=== PATIENT | female | born 1985 | race Hispanic/Latino ===

== ENCOUNTER 2021-10-23 12:11 | Emergency (ER) | payer OTHER ==
--- NOTE | 2021-10-23 14:35 | RAD REPORT ---
EXAM DESCRIPTION: RAD - Chest Pa And Lat (2 Views) - 10/23/2021 2:30 pm CLINICAL HISTORY: CHEST PAIN COMPARISON: None TECHNIQUE: Frontal and lateral views of the chest were obtained. FINDINGS: The lungs are clear. Heart size is normal and central vasculature is within normal limit s. No pleural effusion or pneumothorax seen. No aortic abnormality. No gross rib abnormality seen. Rib detail is limited and can be further addressed with dedicated rib series as warranted. IMPRESSION: No acute cardiopulmonary process.
--- NOTE | 2021-10-23 14:43 | RAD REPORT ---
EXAM DESCRIPTION: Ribs Right - 10/23/2021 2:36 pm CLINICAL HISTORY: CHEST PAIN COMPARISON: Chest Pa And Lat (2 Views) dated 10/23/2021 FINDINGS: No displaced rib fracture is evident. No non-displaced rib fracture suspected. No aggressive rib lesion. No underlying pneumothorax, effusion, infiltrate or pulmonary contusion. IMPRESSION: Negative right rib series.
[2021-10-23] MEDS ORDERED: KETOROLAC 30 MG/ML INJ ONE (15:34)
[2021-10-23 15:42] LABS: Absolute Lymphocytes (CBC) 2.7 K/uL (0.7-4.9); Hematocrit 42.7 % (36.0-45.0); Lymphocytes % 32.7 % (15.3-44.8); MPV 8.1 fL (7.6-11.3); RBC Red Blood Cell Count 4.74 M/uL (3.86-4.86)
[2021-10-23 16:01] LABS: BUN Blood Urea Nitrogen 7 mg/dL (7-18); Bicarbonate 26 mmol/L (21-32); Glucose Level 135 mg/dL (74-106); Potassium 3.3 mmol/L (3.5-5.1); Sodium Level 141 mmol/L (136-145); Troponin High Sensitivity 3.3 pg/mL (<58.9)
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
--- NOTE | 2021-10-23 16:13 | ER ---
Nurse's Notes [facility] Name: Quin Wallace Age: 36 yrs Sex: Female : 1985 Arrival Date: 10/23/2021 Time: 12:15 Bed 8 Private MD: Diagnosis: Chest pain, unspecified Presentation: 10/23 12:32 Chief complaint: Patient states: Constant R sided CP since Friday evening. Pain with ll1 deep breathing. No cough or fever. No trauma or falls. Coronavirus screen: Vaccine status: Patient reports receiving the 2nd dose of the covid vaccine. Client denies travel out of the [place] in the last 14 days. At this time, the client does not indicate any symptoms associated with coronavirus-19. Ebola Screen: Patient denies travel to an Ebola-affected area in the 21 days before illness onset. Initial Sepsis Screen: Does the patient meet any 2 criteria? No. Patient's initial sepsis screen is negative. Does the patient have a suspected source of infection? No. Patient's initial sepsis screen is negative. Risk Assessment: Do you want to hurt yourself or someone else? Patient reports no desire to harm self or others. Onset of symptoms was October 20, 2021. 12:32 Method Of Arrival: Ambulatory ll1 12:32 Acuity: ZAIDA 3 ll1 Triage Assessment: 12:34 General: Appears uncomfortable, Behavior is cooperative, appropriate for age. Pain: ll1 Complains of pain in chest. Cardiovascular: Reports chest pain, lightheadedness. Respiratory: Reports pain with respiration. Historical: - Allergies: 12:34 [place]; ll1 12:34 [place]; ll1 - PMHx: 12:34 Diabetes mellitus; heart racing; ll1 - PSHx: 12:34 Cholecystectomy; L ovary removed; ll1 12:35 hernia SX; ll1 - Immunization history:: Client reports receiving the 2nd dose of the Covid vaccine. - Social history:: Smoking status: Patient denies any tobacco usage or history of. Screenin:43 Abuse screen: Denies threats or abuse. Denies injuries from another. Nutritional ph screening: No deficits noted. Tuberculosis screening: No symptoms or risk factors identified. Fall Risk None identified. Assessment: 14:30 Reassessment: Called from lobby at 1430 - Pt not in lobby. ld1 15:41 General: Appears in no apparent distress. comfortable, well groomed, Behavior is calm, ph cooperative, appropriate for age, Denies fever, feeling ill. Pain: Complains of pain in anterior aspect of right upper chest and left lateral anterior chest Pain radiates to mid-sternal area Pain began 1 day ago. Neuro: Level of Consciousness is awake, alert, obeys commands, Oriented to person, place, time, situation. Cardiovascular: Reports chest pain, Denies fatigue, lightheadedness, nausea, palpitations, shortness of breath, Chest pain is located in right anterior chest wall. Respiratory: Reports pain with respiration Airway is patent Respiratory effort is even, unlabored, Respiratory pattern is regular, symmetrical. GI: No signs and/or symptoms were reported involving the gastrointestinal system. Derm: Skin is intact, is healthy with good turgor, Skin is pink, warm \T\ dry. Musculoskeletal: Circulation, motion, and sensation intact. Range of motion: intact in all extremities. 16:53 Reassessment: Patient appears in no apparent distress at this time. Patient and/or ph family updated on plan of care and expected duration. Pain level reassessed. Patient is alert, oriented x 3, equal unlabored respirations, skin warm/dry/pink. Pt d/c home. Vital Signs: 12:32 BP 120 / 85; Pulse 77; Resp 16; Temp 98.6; Pulse Ox 100% ; Weight 95.25 kg; Height 5 ll1 ft. 2 in. (157.48 cm); Pain 10/10; 15:27 BP 127 / 60; Pulse 77; Resp 16; Pulse Ox 100% on R/A; vg1 16:53 BP 118 / 68; Pulse 72; Resp 18; Temp 97.9; Pulse Ox 100% on R/A; ph 12:32 Body Mass Index 38.41 (95.25 kg, 157.48 cm) ll1 ED Course: 12:15 Patient arrived in ED. ds1 12:22 Isaac Mcfarland NP is PHCP. pm1 12:22 Feroz Blackwood MD is Attending Physician. pm1 12:26 Arm band placed on. ll1 12:34 Triage completed. ll1 14:31 Chest Pa And Lat (2 Views) In Process Unspecified. EDMS 14:32 Ribs Right XRAY In Process Unspecified. EDMS 15:18 Jelly Germain, RN is Primary Nurse. ph 15:29 Initial lab(s) drawn, by me, sent to lab. Inserted saline lock: 20 gauge in right kj1 antecubital area, using aseptic technique. Blood collected. 15:43 Patient has correct armband on for positive identification. Bed in low position. Call ph light in reach. Side rails up X2. Client placed on continuous cardiac and pulse oximetry monitoring. NIBP monitoring applied. Door closed. Noise minimized. Warm blanket given. 15:44 Patient maintains SpO2 saturation greater than 95% on room air. ph 16:52 No provider procedures requiring assistance completed. IV discontinued, intact, ph bleeding controlled, No redness/swelling at site. Pressure dressing applied. Administered Medications: 15:30 Drug: Ketorolac 30 mg Route: IVP; Site: right antecubital; ph 16:52 Follow up: Response: No adverse reaction ph 16:52 Drug: Valium (diazepam) 2 mg Route: PO; ph 16:52 Follow up: Response: No adverse reaction ph Outcome: 16:12 Discharge ordered by MD. pm1 16:52 Discharged to home ambulatory, with significant other. ph 16:52 Condition: good 16:52 Discharge instructions given to patient, Instructed on discharge instructions, follow up and referral plans. medication usage, Demonstrated understanding of instructions, follow-up care, medications, Prescriptions given X 2. 16:54 Patient left the ED. ph Signatures: Dispatcher [employer] EDME Mayra Hand ds1 Jelly Germain, RN RN ph Isaca Mcfarland, VIRIDIANA RECREATIONAL RESORT MANAGER pm1 Edwina Gale kj1 Maylin Montaño RN RN vg1 Armando Rodriguez RN RN ll1 Zarina Lopez RN RN ld1
[2021-10-23] MEDS ORDERED: DIAZEPAM 2 MG TABLET ONE (16:51)
[2021-10-23 19:19] VITALS: O2SAT 100
[2021-10-23 19:25] VITALS: BP 118/68; TEMP 97.9
--- NOTE | 2021-10-24 12:56 | EKG ---
Test Date: 2021-10-23 Test Time: 12:31:16 Change Management Specialist: TIFFANY MEASUREMENT RESULTS: Intervals: Rate: 79 HI: 102 QRSD: 84 QT: 366 QTc: 419 [employer]: P: 35 HI: 102 QRS: 77 T: 27 INTERPRETIVE STATEMENTS: Sinus rhythm with short HI Otherwise normal ECG Compared to ECG 10/23/2021 12:28:39 Short HI interval now present Electronically Signed On 10-24-21 12:52:14 CDT by Ajith Raymundo
--- NOTE | 2021-10-24 12:56 | EKG ---
Test Date: 2021-10-23 Test Time: 12:28:39 Degreaser Operator: TIFFANY MEASUREMENT RESULTS: Intervals: Rate: 0 NV: QRSD: 0 QT: 0 QTc: 0 [place]: P: NV: QRS: 0 T: 0 INTERPRETIVE STATEMENTS: No QRS complexes found, no ECG analysis possible No previous ECG available for comparison Electronically Signed On 10-24-21 12:52:15 CDT by Ajith Raymundo
== END 2021-10-23 16:54 | disposition home or self-care (01) ==
LOC: ER 12:11
DX: R07.9 Chest pain, unspecified (principal); E11.9 Type 2 diabetes mellitus without complications; Z88.5 Allergy status to narcotic agent; Z88.8 Allergy status to other drugs, medicaments and biological substances
CPT/HCPCS: 36415; 71046; 80048; 84484; 85025; 93005; 96374; 99284

== ENCOUNTER 2022-12-18 14:42 | Emergency (ER) | payer OTHER ==
--- NOTE | 2022-12-18 15:16 | ER ---
Nurse's Notes [facility] Name: Quin Hernández Age: 37 yrs Sex: Female : 1985 Arrival Date: 12/18/2022 Time: 14:42 Bed 16 Private MD: Diagnosis: Insect bite (nonvenomous), unspecified lower leg;Cellulitis of left lower limb Presentation: 12/18 15:00 Chief complaint: Patient states: got bit by fire ants yesterday on left thigh, took iw some Benadryl , not better , is worried she is allergic to it , she also has a headache. Coronavirus screen: At this time, the client does not indicate any symptoms associated with coronavirus-19. Ebola Screen: Patient negative for fever greater than or equal to 101.5 degrees Fahrenheit, and additional compatible Ebola Virus Disease symptoms Patient denies exposure to infectious person. Patient denies travel to an Ebola-affected area in the 21 days before illness onset. No symptoms or risks identified at this time. Initial Sepsis Screen: Does the patient meet any 2 criteria? No. Patient's initial sepsis screen is negative. Does the patient have a suspected source of infection? No. Patient's initial sepsis screen is negative. Risk Assessment: Do you want to hurt yourself or someone else? Patient reports no desire to harm self or others. Onset of symptoms was December 17, 2022. 15:00 Method Of Arrival: Ambulatory iw 15:00 Acuity: ZAIDA 4 iw Triage Assessment: 15:38 Headache History: Denies prior headaches. General: Appears in no apparent distress. kc6 comfortable, Behavior is calm, cooperative, appropriate for age. Pain: Denies pain. EENT: No signs and/or symptoms were reported regarding the EENT system. Neuro: Level of Consciousness is awake, alert, obeys commands, Oriented to person, place, time, situation. Cardiovascular: Capillary refill < 3 seconds Patient's skin is warm and dry. Respiratory: Airway is patent Respiratory effort is even, unlabored. Historical: - Allergies: 15:03 No Known Allergies; iw - PMHx: 15:03 diabetes mellitus; HEART RACING; iw - PSHx: 15:03 Cholecystectomy; Hernia sx; L ovary removed; iw - Immunization history:: Adult Immunizations Client reports receiving the 2nd dose of the Covid vaccine. - Social history:: Smoking status: Patient denies any tobacco usage or history of. - Family history:: not pertinent. Screenin:02 [facility] ED Fall Risk Assessment (Adult) History of falling in the last 3 months, kc6 including since admission No falls in past 3 months (0 pts) Confusion or Disorientation No (0 pts) Intoxicated or Sedated No (0 pts) Impaired Gait No (0 pts) Mobility Assist Device Used No (0 pt) Altered Elimination No (0 pt) Score/Fall Risk Level 0 - 2 = Low Risk Oriented to surroundings, Maintained a safe environment, Educated pt \T\ family on fall prevention, incl call for assistance when getting out of bed, Assessed \T\ reinforced patient's understanding of fall precautions, Hourly rounding (assess needs \T\ fall precautionary measures) done. Abuse screen: Denies threats or abuse. Denies injuries from another. Nutritional screening: No deficits noted. Tuberculosis screening: No symptoms or risk factors identified. Assessment: 15:37 Reassessment: No changes from previously documented assessment. Patient and/or family kc6 updated on plan of care and expected duration. Pain level reassessed. Patient is alert, oriented x 3, equal unlabored respirations, skin warm/dry/pink. Patient is alert/active/playful, equal unlabored respirations, skin warm/dry/pink. See triage assessment Patient denies pain at this time. Vital Signs: 15:00 BP 121 / 64; Pulse 98; Resp 16; Temp 98.4; Pulse Ox 98% on R/A; Weight 92.99 kg; Height iw 5 ft. 2 in. ; Pain 10/10; 15:37 BP 126 / 70; Pulse 81; Resp 18; Pulse Ox 100% on R/A; kc6 15:00 Body Mass Index 37.49 (92.99 kg, 157.48 cm) iw 15:00 Pain Scale: Adult iw ED Course: 14:47 Patient arrived in ED. am2 14:53 Clay Young MD is Attending Physician. rt 15:01 Marilyn Mendiola, KARENA is Primary Nurse. kc6 15:02 Triage completed. iw 15:02 Arm band placed on. iw 15:03 Patient has correct armband on for positive identification. Bed in low position. Call kc6 light in reach. Side rails up X2. 15:37 No provider procedures requiring assistance completed. IV discontinued, intact, kc6 bleeding controlled, No redness/swelling at site. Administered Medications: 15:17 Drug: TORadol - Ketorolac IM 15 mg Route: IM; Site: left deltoid; kc6 Medication: 15:37 VIS not applicable for this client. kc6 Outcome: 15:15 Discharge ordered by MD. rt 15:37 Discharged to home ambulatory. kc6 15:37 Condition: stable 15:37 Discharge instructions given to patient, Instructed on discharge instructions, follow up and referral plans. medication usage, Demonstrated understanding of instructions, follow-up care, medications, Prescriptions given X 1. 15:38 Patient left the ED. kc6 Signatures: Annie Brice RN Jenny Juarez Kaitlyn, RN RN kc6 Clay Young MD MD rt Corrections: (The following items were deleted from the chart) 15:04 15:03 Allergies: [place]; [facility] 15:04 15:03 Allergies: [place]; [facility]
--- NOTE | 2022-12-18 15:16 | EDPHYS ---
Physician Documentation [facility] Name: Quin Hernández Age: 37 yrs Sex: Female : 1985 Arrival Date: 12/18/2022 Time: 14:42 Bed 16 Private MD: ED Physician Clay Young HPI: 12/18 15:17 This 37 yrs old Female presents to ER via Ambulatory with complaints of Leg rt Swelling, Headache, Allergic Reaction. 15:17 Yesterday, the patient was sitting down in grass when she noticed ants biting her left rt thigh. She states she was covered in ants, was bit multiple times. Patient ports having some hives and itching localized to that area at that time. She denies any tongue swelling, difficulty breathing. She reported mild headache that started at the time, is been present since then. Patient has been taking Benadryl off-and-on with modest relief. States that the redness has increased today proper come to the ED for further evaluation. Denies other acute complaints at this time, symptoms are mild in severity, no other aggravating alleviating factors.. Historical: - Allergies: 15:03 No Known Allergies; iw - PMHx: 15:03 diabetes mellitus; HEART RACING; iw - PSHx: 15:03 Cholecystectomy; Hernia sx; L ovary removed; iw - Immunization history:: Adult Immunizations Client reports receiving the 2nd dose of the Covid vaccine. - Social history:: Smoking status: Patient denies any tobacco usage or history of. - Family history:: not pertinent. ROS: 15:17 Constitutional: Negative for fever, chills, and weight loss, ENT: Negative for injury, rt pain, and discharge, Cardiovascular: Negative for chest pain, palpitations, and edema, Respiratory: Negative for shortness of breath, cough, wheezing, and pleuritic chest pain, Abdomen/GI: Negative for abdominal pain, nausea, vomiting, diarrhea, and constipation, Neuro: Negative for headache, weakness, numbness, tingling, and seizure, Psych: Negative for depression, anxiety, suicide ideation, homicidal ideation, and hallucinations. 15:17 Skin: Positive for Redness, itching. Exam: 15:17 Constitutional: This is a well developed, well nourished patient who is awake, alert, rt and in no acute distress. Head/Face: Normocephalic, atraumatic. ENT: Nares patent. No nasal discharge, no septal abnormalities noted. Tympanic membranes are normal and external auditory canals are clear. Oropharynx with no redness, swelling, or masses, exudates, or evidence of obstruction, uvula midline. Mucous membranes moist. MS/ Extremity: Pulses equal, no cyanosis. Neurovascular intact. Full, normal range of motion. Neuro: Awake and alert, GCS 15, oriented to person, place, time, and situation. Cranial nerves II-XII grossly intact. Motor strength 5/5 in all extremities. Sensory grossly intact. Cerebellar exam normal. Normal gait. Psych: Awake, alert, with orientation to person, place and time. Behavior, mood, and affect are within normal limits. 15:17 Skin: Large bowel 6-8 areas and bites on the left lateral thigh with surrounding areas of cellulitis measuring about 3 to 4 cm out from the middle of the bites. There is no confluent infection, no abscess noted. No crepitus felt.. Vital Signs: 15:00 BP 121 / 64; Pulse 98; Resp 16; Temp 98.4; Pulse Ox 98% on R/A; Weight 92.99 kg; Height iw 5 ft. 2 in. ; Pain 10/10; 15:37 BP 126 / 70; Pulse 81; Resp 18; Pulse Ox 100% on R/A; kc6 15:00 Body Mass Index 37.49 (92.99 kg, 157.48 cm) iw 15:00 Pain Scale: Adult iw MDM: 15:02 Patient medically screened. rt 15:17 Differential diagnosis: Cellulitis, abscess, anaphylaxis, localized reaction. Data rt reviewed: vital signs, nurses notes. Test considered but Not performed: Labs: Stable vital signs, benign appearing cellulitis on physical examination, does not require laboratory evaluation at this time.. Care significantly affected by the following chronic conditions: Diabetes. Counseling: I had a detailed discussion with the patient and/or guardian regarding: the historical points, exam findings, and any diagnostic results supporting the discharge/admit diagnosis, the need for outpatient follow up, to return to the emergency department if symptoms worsen or persist or if there are any questions or concerns that arise at home. Administered Medications: 15:17 Drug: TORadol - Ketorolac IM 15 mg Route: IM; Site: left deltoid; kc6 Disposition Summary: 12/18/22 15:15 Discharge Ordered Location: Home rt Problem: new rt Symptoms: are unchanged rt Condition: Stable rt Diagnosis - Insect bite (nonvenomous), unspecified lower leg rt - Cellulitis of left lower limb rt Followup: rt - With: Private Physician - When: 2 - 3 days - Reason: Discharge Instructions: - Discharge Summary Sheet rt - Insect Bite, Adult rt - Cellulitis, Adult rt Forms: - Medication Reconciliation Form rt - Thank You Letter rt - Antibiotic Education rt - Prescription Opioid Use rt - [email or web address] rt Prescriptions: - Cephalexin 500 mg Oral Capsule - take 1 capsule by ORAL route every 6 hours for 10 days; 40 capsule; Refills: 0, rt Product Selection Permitted - Hydroxyzine HCl 25 mg Oral Tablet - take 1 tablet by ORAL route every 6 hours As needed; 12 tablet; Refills: 0, rt Product Selection Permitted Signatures: Annie Brice RN RN iw Marilyn Mendiola RN RN [id number] Clay Young MD MD rt Corrections: (The following items were deleted from the chart) 15:04 15:03 Allergies: Amagon; iw iw 15:04 15:03 Allergies: Umbarger; iw iw
--- OUTSIDE RECORDS SUMMARY | 2022-12-18 15:21 | XMS REPORT | Continuity of Care Document ---
:1985 Author Organization [facility] t Address [address] [place]. [address] [place] [address] Care Team Providers Name Role Phone NGUYỄN NINO Primary Care Physician Unavailable DR NGUYỄN NINO Attending Clinician Unavailable [phone] Attending Clinician Unavailable EDGARDO TSANG Attending Clinician Unavailable BERNA REINOSO Attending Clinician UnavailDR MARTY Rosales Attending Clinician Unavailable ALYSON MOORE Attending Clinician Unavailable ANTWON JONES Attending Clinician Unavailable ANTWON JONES Attending Clinician Unavailable Antwon Jones MD Attending Clinician Doctor Unassigned, Bud Attending Clinician Unavailable DR GIRMA ZARATE Attending Clinician Unavailable JENNY DODSON Attending Clinician Unavailable DR AMBERLY SR Attending Clinician Unavailable Jamal THURSTON, Lina Attending Clinician Unavailable West TOUSSAINT, Jenny Attending Clinician Miriam PATHOLOGY TECHNOLOGIST, Cami Attending Clinician DR МАРИЯ HERRING Attending Clinician Unavailable MILLY FOSS III Attending Clinician Unavailable Arturo THURSTON, Gisele Attending Clinician Unavailable Natalie PATHOLOGY TECHNOLOGIST, Galen B Attending Clinician Belen PATHOLOGY TECHNOLOGIST, Alex Attending Clinician Provider, [facility] Care Attending Clinician Unavailable ALEX GLOVER Attending Clinician Unavailable EDGARDO TSANG M.D. Attending Clinician Unavailable Meg Nunes DO Attending Clinician MEG NUNES Attending Clinician Unavailable DR STEW CASTANEDA Attending Clinician Unavailable Edgardo Tsang Attending Clinician Maite Apodaca Attending Clinician Norbert Pederson Attending Clinician Alyson Montes Attending Clinician Cj Evans Attending Clinician Alyson Ho Attending Clinician Estuardo Ovalle Attending Clinician Casie Vann Attending Clinician Georges Posada Attending Clinician [place] Cali Attending Clinician Farooq Armas Si Attending Clinician DR NGUYỄN NINO Admitting Clinician Unavailable DR MARTY DIXON Admitting Clinician Unavailable ALYSON MOORE Admitting Clinician Unavailable DR GIRMA ZARATE Admitting Clinician Unavailable DR AMBERLY SR Admitting Clinician Unavailable DR МАРИЯ HERRING Admitting Clinician Unavailable DR STEW CASTANEDA Admitting Clinician Unavailable Trinh Edgardo Agustin Admitting Clinician Payers Payer Name Policy Type Policy Number Effective Date Expiration Date Shelby suarez CIGNA OPEN [id number] 2016 2021 ACCESS/OPEN 00:00:00 00:00:00 ACCESS PLUS CIGNA [id number] CIGNA [id number] CIGNA [id number] CIGNA [id number] CIGNA [id number] CIGNA [id number] CIGNA II [id number] 2020 00:00:00 GENERIC OTHER [id number] 2022 00:00:00 0050 [id number] 2022 00:00:00 TSHBP 90 DEGREES [id number] 2022 2022 00:00:00 00:00:00 0155 [id number] 1959 00:00:00 Problems Condition Condition Condition Status Onset Resolution Last Treating Co mments Source Name Details Category Date Date Treatment Clinician Date Screen for Screen for Disease Active 2021-06 U T STD STD 08-04 Health (sexually (sexually 00:00: transmitte transmitte 00 d disease) d disease) Vulvar Vulvar Disease Active UT leukoplaki leukoplaki 12-11 He alth a a 00:00: 00 LGSIL on LGSIL on Disease Active UT Pap smear Pap smear 11-21 Heal th of cervix of cervix 00:00: 00 Cervicitis Cervicitis Disease Active U T and and 02-14 Health endocervic endocervic 00:00: itis itis 00 Pelvic Pelvic Disease Active UT pain in pain in 01-11 Health female female 00:00: 00 Vaginitis Vaginitis Disease Active UT and and 01-11 Health vulvovagin vulvovagin 00:00: itis itis 00 Acute Acute Disease Active UT cystitis cystitis 01-11 Health without without 00:00: hematuria hematuria 00 Surveillan Surveillan Disease Active U T ce for ce for 5-20 Health Depo-Prove Depo-Prove 00:00: ra ra 00 contracept contracept ion ion Vagina Vagina Disease Active UT itching itching 5-20 Health 00:00: 00 Chest pain Chest pain Disease Active M ethodi [facility] 00[facility]00: Hospita 00 l HEADACHE HEADACHE Diagnosis Active 2016-062017-10-21 Memoria Active 0- 08:38:00 l 04/11/2017 00:00: Nimesh wheeler [place] ABDOMINAL ABDOMINAL Diagnosis Active 2015-062016-04-09 Memoria PAIN PAIN 0-18 12:49:00 l Active 00:00: [place] 04/09/2016 00 [place] ABD PAIN ABD PAIN Diagnosis Active 2016-02-23 Memoria Active 02-22 23:08:00 l 02/23/2016 00:00: Nimesh wheeler [place] CHEST PAIN CHEST Diagnosis Active 2015-08-11 Memoria PAIN 2- 21:48:00 l Active 00:00: Jose Antonio 08/11/2015 00 [place] ADNEXAL ADNEXAL Diagnosis Active 2014-062015-04-28 Memoria MASS-R19.0 MASS-R19.0 1- 10:57:00 l 9 9 Active 00:00: Jose Antonio 04/25/2015 00 [place] Heart Heart Problem Active 2019-06-02 Memor ia murmur murmur 11-02 22:15:14 l (finding) (finding) 00:00: Herm wesley Active 00 11/02/2014 Problem 06/02/2019 Data migrated from [employer] on 12/28/14.
Data migrated from [employer] on 11/22/14. Medical Group, [place] Dizziness Dizziness Problem Active 2015-08-15 Memoria (finding) (finding) 5 02:21:29 l Active 00:00: [place] 11/02/2014 00 Problem 08/15/2015 Data migrated from [employer] on 12/28/14.
Data migrated from [employer] on 11/22/14. [place] Dyspnea Dyspnea Problem Active 2015-08-15 Me moria (finding) (finding) 11-02 02:21:29 l Active 00:00: Jose Antonio 11/02/2014 00 Problem 08/15/2015 Data migrated from [employer] on 12/28/14.&lt ;br/>Data migrated from [employer] on 11/22/14. [place] Abnormal Abnormal Problem Active 2015-08-15 Memoria ECG ECG 5- 02:21:29 l (finding) (finding) 00:00: Herm wesley Active 00 11/02/2014 Problem 08/15/2015 Data migrated from [employer] on 12/28/14.
Data migrated from [employer] on 11/22/14. [place] Palpitatio Palpitati Problem Active 2015-08-15 Memoria ns ons 5- 02:21:29 l (finding) (finding) 00:00: Herm wesley Active 00 11/02/2014 Problem 08/15/2015 Data migrated from [employer] on 12/28/14.
Data migrated from [employer] on 11/22/14. [place] Pain in Pain in Problem Active 2015-05-03 Me moria pelvis pelvis 3-02 01:11:04 l (finding) (finding) 00:00: Herm wesley Active 00 08/22/2014 Problem 05/03/2015 Data migrated from [employer] on 12/28/14.
Data migrated from [employer] on 11/22/14. [place] Abdominal Abdominal Problem Active 2015-08-15 Memoria bloating bloating 2- 02:21:29 l (finding) (finding) 00:00: Herm wesley Active 00 08/08/2014 Problem 08/15/2015 Data migrated from [employer] on 12/28/14.
Data migrated from [employer] on 11/22/14. [place] Generalize Generaliz Problem Active 2015-08-15 Memoria d ed 2-16 02:21:29 l abdominal abdominal 00:00: Herm wesley pain pain 00 (finding) (finding) Active 08/08/2014 Problem 08/15/2015 Data migrated from [employer] on 12/28/14.
Data migrated from [employer] on 11/22/14. [place] Vaginitis Vaginitis Problem Active 2015-05-03 Memoria (disorder) (disorder) 2-16 01:11:04 l Active 00:00: [place] 08/08/2014 00 Problem 05/03/2015 Data migrated from [employer] on 12/28/14.
Data migrated from [employer] on 11/22/14. [place] Hypertroph Hypertrop Problem Active 2019-06-02 Memoria y of hy of 08-08 22:15:14 l clitoris clitoris 00:00: Nimesh n (disorder) (disorder) 00 Active 08/08/2014 Problem 06/02/2019 Data migrated from [employer] on 12/28/14.
Data migrated from [employer] on 11/22/14. Medical Group, [place] CHEST PAIN CHEST Diagnosis Active 2014-03-21 Memoria AND PAIN AND 03-20 11:04:00 l ABDOMINAL ABDOMINAL 06:00: Curt wesley PAIN PAIN 00 Active 03/20/2014 [place] Gallbladde Gallbladd Problem Active 2015-08-15 Memoria r calculus er 03-14 02:21:29 l (disorder) calculus 00:00: Curt olson (disorder) 00 Active 03/14/2014 Problem 08/15/2015 Data migrated from [employer] on 11/19/14. [place] HEAD HEAD Diagnosis Active 2014-03-20 Mem oria INJURY INJURY 03-01 06:45:00 l Active 00:00: Jose Antonio 03/01/2014 00 [place] Body mass Body mass Problem Active 2019-06-02 Memoria index 40+ index 40+ 11-23 22:15:14 l - severely - severely 00:00: Nicolas rmann obese obese 00 (finding) (finding) Active 11/23/2013 Problem 06/02/2019 Data migrated from [employer] on 11/19/14. Medical Group, [place] Hyperglyce Problem Active 2019-06-02 Eb ramirez miguel a Hyperglyce 11-23 22:15:14 l (disorder) miguel a 00:00: Nimesh n (disorder) 00 Active 11/23/2013 Problem 06/02/2019 Data migrated from [employer] on 12/28/14.
Data migrated from [employer] on 11/22/14.
Data migrated from [employer] on 11/19/14. [facility] [place] Contracept Contracep Problem Active 2012-062015-05-03 Memoria ion care tion care 2-17 01:11:04 l management management 00:00: Nicolas ritchie (procedure (procedure 00 ) ) Active 06/08/2013 Problem 05/03/2015 Data migrated from [employer] [employer] on 11/19/14. [place] DIZZINESS DIZZINESS Diagnosis Active 2012-10-31 Memoria Active 10-31 22:41:00 l 10/31/2012 16:00: Nimesh wheeler [place] CONTRACT CONTRACT Diagnosis Active 2010-062011-05-02 Memoria PELV PELV 0- 17:39:00 l NOS-UN NOS-UN 13:00: Jose Antonio Active 00 03/28/2011 [place] / Diagnosis Active 2010-062011-03-28 Memoria DELIVERY /DELIVERY 0-06 13:16:00 l Active 13:00: Jose Antonio 03/28/2011 00 [place] Diagnosis Active 2011-03-13 Memoria RELATED RELATED 03-12 15:30:00 l Active 20:00: Jose Antonio 03/12/2011 00 [place] History of History of Problem Resolve UT diabetes diabetes d Physic i mellitus mellitus ans History of History of Problem Resolve UT hypertensi hypertensi d Ph ysici on on ans Diabetes Diabetes Problem Active UT Physici ans Hypertensi Hypertensi Problem Active U T on on Physici ans Migraine Migraine Problem Active UT Physici ans Well woman Well woman Problem Active U T exam exam Physici ans Surveillan Surveillan Problem Active U T ce for ce for Physici Depo-Prove Depo-Prove an s ra ra contracept contracept ion ion Chest wall Chest wall Problem Active U T pain pain Physici ans Anxiety Anxiety Problem Active 2019-06-02 Me moria (finding) (finding) 22:15:14 l Active Jose Antonio Problem 06/02/2019 Medical Group Contracept Contracep Problem Active 2019-06-02 Memoria ion status tion 22:15:14 l (finding) status Jose Antonio (finding) Active Problem 06/02/2019 [facility] [place] Family Family Problem Active 2019-06-02 Mem oria history of history of 22:15:14 l malignant malignant Herm wesley neoplasm neoplasm of ovary of ovary (situation (situation ) ) Active Problem 06/02/2019 Medical Group, [place] Fatigue Fatigue Problem Active 2019-06-02 Me morireinier (finding) (finding) 22:15:14 l Active Jose Antonio Problem 06/02/2019 Medical [facility], [place] Gastroesop Gastroeso Problem Active 2019-06-02 Memoria hageal phageal 22:15:14 l reflux reflux [place] disease disease (disorder) (disorder) Active Problem 06/02/2019 occas, take otc meds Medical Group, [place] Medical Medical Problem Active 2019-06-02 Me morireinier examinatio examinatio 22:15:14 l ns/reports ns/reports He rmann status status (finding) (finding) Active Problem 06/02/2019 Medical Group Dyspareuni Dyspareun Problem Active 2017-11-24 Memoria a ia 11:13:44 l (finding) (finding) Herm wesley Active Problem 11/24/2017 Medical [facility] [place] Reduced Reduced Problem Active 2017-11-24 Me morireinier libido libido 11:13:44 l (finding) (finding) Herm wesley Active Problem 11/24/2017 [facility] [place] Premature Premature Problem Active 2015-05-03 Memoria labor labor 01:11:04 l (finding) (finding) Herm wesley Active Problem 05/03/2015 [place] Morbid Morbid Problem Active 2015-08-15 Akash madhu obesity obesity 02:21:29 l (disorder) (disorder) He rmann Active Problem 08/15/2015 [place] Dep[place] Depot Problem Active 2015-08-15 Memor ia contracept contracept 02:21:29 l ion ion Jose Antonio (finding) (finding) Active Problem 08/15/2015 [place] CONTRACT CONTRACT Diagnosis Active 2011-05-02 Memoria PELV PELV 17:39:00 l NOS-UNSPEC NOS-UNSPEC He rmann Active [place] OTHER OTHER Diagnosis Active 2015-04-28 Mem oria INTRA-ABDO INTRA-ABDO 10:57:00 l MICHELLE AND MICHELLE AND Herm wesley PELVIC PELVIC SWELLIN SWELLIN Active [place] No known No known Disease Unive rs active active ity of problems problems [facility] Pain in Pain in Problem Resolve 2014-062019-06-02 2019-06-02 Memoria female female d 2-28 22:15:14 22:15:14 l pelvis pelvis 00:00: Jose Antonio (finding) (finding) 00 Resolved 06/19/2015 Problem 06/02/2019 [facility] [place] Tubo-ovari Tubo-ovar Problem Resolve 2014-062019-06-02 2019-06-02 Memoria an mass mindy mass d 06-24 22:15:14 22:15:14 l (disorder) (disorder) 00:00: He rmann Resolved 00 04/24/2015 Problem 06/02/2019 [facility] [place] Patient Patient Problem Resolve 2019-06-02 2019-06-02 Memoria currently currently d 08-19 22:15:14 22:15:14 l 00:00: Nimesh wheeler (finding) (finding) 00 Resolved 08/19/2012 Problem 06/02/2019 [facility] [place] Acute pain Acute Problem Resolve 2014-062015-08-15 2015-08-15 Memoria in female pain in d 06-27 02:21:29 02:21:29 l pelvis female 00:00: Jose Antonio (finding) pelvis 00 (finding) Resolved 04/27/2015 Problem 08/15/2015 [place] Chest pain Chest Problem Resolve 2015-08-15 2015-08-15 Memoria (finding) pain d 11-23 02:21:29 02:21:29 l (finding) 00:00: Jose Antonio Resolved 00 11/23/2013 Problem 08/15/2015 pt not sure if chest pain or not; but at present no cardiac chest pain sob , exercise regularly no problems<b r/>denies cardiac chest pain, no treatment, dx or problems cardiac hernandez, say took a pain med after gall blaader surgery and had chest pain, stopped the pain med and felt better<br/ >Data migrated from [employer] on 12/28/14.
Data migrated from [employer] on 11/22/14.
Data migrated from [employer] on 11/19/14. [place] Acute Acute Problem Resolve 2015-08-15 2015-08-15 Memoria suppurativ suppurativ d 02-17 02:21:29 02:21:29 l e otitis e otitis 00:00: Nimesh wheeler media media 00 (disorder) (disorder) Resolved 02/17/2013 Problem 08/15/2015 Data migrated from [facility] on 01/06/15. [place] History of Past Illness Condition Condition Condition Status Onset Resolution Last Treating Co mments Source Name Details Category Date Date Treatment Clinician Date Anxiety Anxiety Problem 2018-08-02 2018-08-02 Memoria disorder, disorder, 01-13 12:21:13 12:21:13 l unspecifie unspecifie 21:07: He rmann d d 00 01/13/2018 9 Medical Group Other Other Problem 2018-08-02 2018-08-02 M emoria fatigue fatigue 01-13 12:21:13 12:21:13 l 01/13/2018 21:07: Nimesh wheeler 08/02/2018 00 Medical Group Family Family Problem 2018-08-02 2018-08-02 Memoria history of history of 01-13 12:21:13 12:21:13 l malignant malignant 21:07: Herm wesley neoplasm neoplasm 00 of ovary of ovary 01/13/2018 9 Medical Group Other Other Problem 2016-062017-06-12 2017-06-12 M emoria pruritus pruritus 08-10 01:25:15 01:25:15 l 06/09/2017 22:18: Nimesh wheeler 06/12/2017 00 Medical Group Headache Headache Problem 2016-062017-04-22 2017-04-22 Memoria 04/19/2017 01:22:43 01:22:43 l 04/22/2017 05:00: Nimesh wheeler [place] Discharge Discharge Problem 2015-062016-04-12 2016-04-12 Memoria Diagnosis: Diagnosis: 0- 03:27:08 03:27:08 l Abdominal Abdominal 05:00: Herm wesley pain pain 00 04/09/2016 04/12/2016 [place] Discharge Discharge Problem 2015-062016-04-12 2016-04-12 Memoria Diagnosis: Diagnosis: 0- 03:27:08 03:27:08 l Acute UTI Acute UTI 05:00: Herm wesley 04/09/2016 00 04/12/2016 [place] Discharge Discharge Problem 2016-02-26 2016-02-26 Memoria Diagnosis: Diagnosis: 02-22 04:34:09 04:34:09 l Abscess Abscess 05:00: [place] and and 00 cellulitis cellulitis 02/23/2016 02/26/2016 [place] Discharge Discharge Problem 2015-08-15 2015-08-15 Memoria Diagnosis: Diagnosis: 08-11 02:21:29 02:21:29 l Chest Chest 06:00: [place] pain, pain, 00 unspecifie unspecifie d d 08/11/2015 6 [place] Discharge Discharge Problem 2015-08-15 2015-08-15 Memoria Diagnosis: Diagnosis: 08-11 02:21:29 02:21:29 l Unspecifie Unspecifie 06:00: He rmann d chronic d chronic 00 gastritis gastritis without without bleeding bleeding 08/11/2015 08/15/2015 [place] Discharge Discharge Problem 2014-062015-04-22 2015-04-22 Memoria Diagnosis: Diagnosis: 03:16:03 03:16:03 l Ovarian Ovarian 05:00: Jose Antonio cyst cyst 00 04/19/2015 04/22/2015 [place] Discharge Discharge Problem 2014-062015-04-22 2015-04-22 Memoria Diagnosis: Diagnosis: 03:16:03 03:16:03 l Pelvic Pelvic 05:00: [place] pain in pain in 00 female female 04/19/2015 04/22/2015 [place] Discharge Discharge Problem 2014-03-04 [facility]: Diagnosis: 03-01 03:46:57 03:46:57 l Concussion Concussion 05:00: He rmann without without 00 loss of loss of consciousn consciousn ess ess 03/01/2014 03/04/2014 [place] Allergies, Adverse Reactions, Alerts Allergy Allergy Status Severity Reaction(s) Onset Inactive Treating Comm ents Source Name Type Date Date Clinician HYDROXYP DRUG Active High Hives Univers ROGEST(P 5-07 ity of F)(PREG 00:00: [place] PRESV) 00 Medical Branch Hydroxyp Propensi Active Hives Univer s rogest(P ty to 5-07 ity of f)(Preg adverse 00:00: [place] Presv) reaction 00 Medical s Branch Hydroxyp Drug Active Hives UT rogester Allergy 10-22 Health one 00:00: Caproate 00 Lovastat Allergy Active UT in to 10-22 Health substanc 00:00: e 00 HYDROCOD DRUG Active Palpitations Un yoni ONE-ACET 2-13 ity of AMINOPHE 00:00: [place] N 00 Medical Branch Hydrocod Propensi Active Palpitations Univers one-Acet ty to 2-13 ity of aminophe adverse 00:00: [place] n reaction 00 Medical s Branch Hydrocod Drug Active Palpitations UT one-Acet Allergy 13 Health aminophe 00:00: n 00 Hydrocod Propensi Active Method i one-Acet ty to 2-17 st aminophe adverse 00:00: Hospita n reaction 00 l s to drug [place] DA Active Unknown [facility] Pedro DA Active Unknown [facility] LOVASTAT DA Active SEVERE E[place]ATED El IN LIVER [place] ENZYMES Mem[facility] l [facility]ospita l NORCO DA Active UNKNOWN [facility] PEDRO DA Active UNKNOWN [facility] Pedro Allergy Active UT OIL to drug Physici (finding ans ) [place] Allergy Active UT TABS to drug Physici (finding ans ) lovastat Allergy Active UT in to drug Physici (finding ans ) Wellbutr Wellbutr Active Memori a in in l Jose Antonio [place] Active Memoria l [place] Active Memoria l Jose Antonio maple maple Active Memoria kidd kidd l [place] Family History Family Member Diagnosis Comments Start Date Stop Date Source aunt Family history of malignant [facility] neoplasm of ovary Sister Family history of [facility] endometriosis Social History Social Habit Start Date Stop Date Quantity Comments Source History SDOH [facility] Alcohol Std Drinks History SDKY [facility] Alcohol Binge History SDKY [facility] Alcohol Comment [facility] Alcohol intake 2022-11-19 2022-11-19 Lifetime [facility] 00:00:00 00:00:00 non-drinker (finding) Tobacco use and 2022-09-11 2022-09-11 Smokeless [facility] exposure 00:00:00 00:00:00 tobacco non-user Exposure to 2022-06-14 2022-06-24 Not sure University of SARS-CoV-2 (event) 00:00:00 10:13:[address] [facility] History SDOH 2020-10-22 2020-10-22 1 [facility] Alcohol Frequency 00:00:00 00:00:00 History of Social 2018-05-06 2018-05-[address] function 00:00:00 00:00:00 Hospital Social History 2017-11-05 2017-11-05 [facility] 20:15:24 20:15:24 Sex [birth year] [facility] 00:00[facility]00 00:00:[address] [facility] Smoking Status Start Date Stop Date Source Never smoked tobacco [facility] Unknown if ever smoked [facility] Medications Ordered Filled Start Stop Current Ordering Indication Dosage Frequency Signature Comments Components Source Medication Medication Date Date Medication? Clinician (SIG) Name Name medroxyPROG 2022-0 2022- No 1474 150mg UT ESTERone 11-19 Health (Depo-Prove 21:30: 21:47 ra) 00 :00 injection syringe 150 mg medroxyPROG 2022-0 2022- No 1474 150mg 150 mg, U T ESTERone 11-19 Intramuscu Heal th (Depo-Prove 21:30: 21:47 lar, Once, ra) 00 :00 On Fri injection 11/19/22 at syringe 150 1630, For mg 1 dose
SH AMY WELL
In dications: Contracept fransisco Therapy, She is not allergic to depo provera. She has been doing it since 2012 medroxyPROG 0 3- No 1474 150mg UT ESTERone 09-11 Health (Depo-Prove 20:30: 20:58 ra) 00 :00 injection syringe 150 mg medroxyPROG 2022-0 3- No 1474 150mg 150 mg, U T ESTERone 09-11 Intramuscu Heal th (Depo-Prove 20:30: 20:58 lar, Once, ra) 00 :00 On Fri injection 09/11/22 at syringe 150 1600, For mg 1 dose
SH AMY WELL
In dications: Contracept fransisco Therapy valACYclovi 2022-3- No [id number] 500mg QD Take 1 UT r (Valtrex) 09-11 tablet Healt h 500 MG 00:00: 04:59 (500 mg tablet 00 :00 total) by mouth 1 (one) time each day for 3 days. medroxyPROG 2022-0 Yes 1474 150mg UT ESTERone 07-04 Health (Depo-Prove 21:30: ra) 00 injection syringe 150 mg medroxyPROG 2022-0 3- No 1474 150mg UT ESTERone 07-04 Health (Depo-Prove 21:30: 21:57 ra) 00 :00 injection syringe 150 mg medroxyPROG 2022-0 2022- No 1474 150mg 150 mg, U T ESTERone 07-04 Intramuscu Heal th (Depo-Prove 21:30: 21:57 lar, Once, ra) 00 :00 On Fara injection 07/04/22 at syringe 150 1530, For mg 1 dose
SH AMY WELL
In dications: Contracept fransisco Therapy, She does not have allergies to med. She has been receiving it since 2012. liraglutide Yes Victoza Uni vers (VICTOZA 06-24 2-Keerthi 0.6 ity of 2-KEERTHI) 0.6 10:32: [place].1 [place] mg/0.1 mL 11 (18 mg/3 Medica l (18 mg/3 mL) Branch mL) subcutaneo injection us pen injector metoprolol Yes metoprolol U nivers tartrate 25 06-24 tartrate ity of mg tablet 10:32: [address] Medical Branch liraglutide Yes Victoza Uni vers (VICTOZA 06-24 2-[place] 0.6 ity of 2-KEERTHI) 0.6 10:32: mg[place]0.1 [place] mg/0.1 mL 11 (18 mg/3 Medica l (18 mg/3 mL) Branch mL) subcutaneo injection us pen injector metoprolol Yes metoprolol U nivers tartrate 25 06-24 tartrate ity of mg tablet 10:32: 25 mg [place] [address] tablet Medical Branch liraglutide Yes Victoza Uni vers (VICTOZA 1-02 2-[place] 0.6 ity of 2-KEERTHI) 0.6 10:32: mg/0.1 mL [place] mg/0.1 mL 11 (18 mg/3 Medica l (18 mg/3 mL) Branch mL) subcutaneo injection us pen injector metoprolol 0 Yes metoprolol U nivers tartrate 25 06-24 tartrate ity of mg tablet 10:32: 25 mg [place] 11 tablet Medical Branch topiramate 0 Yes [id number] 100mg Take 2 Univers 50 mg 1-02 tablets by ity of tablet 00:00: mouth in [place] 00 the Medical morning Branch and 2 tablets in the evening. Take as directed during the office visit. topiramate 0 Yes [id number] 100mg Take 2 Univers 50 mg 1-02 tablets by ity of tablet 00:00: mouth in [place] 00 the Medical morning Branch and 2 tablets in the evening. Take as directed during the office visit. topiramate Yes [id number] 100mg Take 2 Univers 50 mg 1-02 tablets by ity of tablet 00:00: mouth in [place] 00 the [facility] morning Branch and 2 tablets in the evening. Take as directed during the office visit. fluconazole 2021-06 Yes [id number] Take 1 UT (Diflucan) 1-28 tablet by Heal 150 MG 00:00: mouth, tablet 00 repeat in 3 days. fluconazole 2021-06 Yes [id number] Take 1 UT (Diflucan) 1-28 tablet by Heal th 150 MG 00:00: mouth, tablet 00 repeat in 3 days. fluconazole 2021-06 Yes [id number] Take 1 UT (Diflucan) 1-28 tablet by Heal th 150 MG 00:00: mouth, tablet 00 repeat in 3 days. fluconazole 2021-06 Yes [id number] Take 1 UT (Diflucan) 1-28 tablet by Heal th 150 MG 00:00: mouth, tablet 00 repeat in 3 days. fluconazole 2021-06 Yes [id number] Take 1 UT (Diflucan) 1-28 tablet by Heal th 150 MG 00:00: mouth, tablet 00 repeat in 3 days. fluconazole 2021-06 Yes [id number] Take 1 UT (Diflucan) 1-18 tablet by Heal th 150 MG 00:00: mouth, tablet 00 repeat in 3 days. fluconazole 2021-06 Yes [id number] Take 1 UT (Diflucan) 1-18 tablet by [facility] 150 MG 00:00: mouth, tablet 00 repeat in 3 days. fluconazole 2021-06 Yes [id number] Take 1 UT (Diflucan) 1-18 tablet by [facility] [facility] th 150 MG 00:00: mouth, tablet 00 repeat in 3 days. fluconazole 2021-06 Yes [id number] Take 1 UT (Diflucan) 1-18 tablet by [facility] 150 MG 00:00: mouth, tablet 00 repeat in 3 days. fluconazole 2021-06 Yes [id number] Take 1 UT (Diflucan) 1-18 tablet by [facility] 150 MG 00:00: mouth, tablet 00 repeat in 3 days. medroxyPROG 2021-06 No 1474 150mg UT ESTERone 004-15 Health (Depo-Prove 20:15: 21:05 ra) 00 :00 injection 150 mg medroxyPROG 2021-06 No 1474 150mg 150 mg, U T ESTERone 04-15 Intramuscu [facility] (Depo-Prove 20:15: 21:05 lar, Once, ra) 00 :00 On Mon injection 04/15/22 150 mg at 1515, For 1 dose
In dications: Contracept fransisco Therapy medroxyPROG 2021-06 No UT ESTERone 004-15 [facility] (Depo-Prove 15:07: 00:00 ra) 150 42 :00 MG/ML injection valACYclovi 2021-06- No [id number] 500mg Q.5D Take 1 UT r (Valtrex) 04-19 tablet Healt h 500 MG 00:00: 04:59 (500 mg tablet 00 :00 total) by mouth in the morning and 1 tablet (500 mg total) in the evening. Do all this for 3 days. medroxyPROG 2021- No 1474 150mg UT ESTERone 01-21 [facility] (Depo-Prove 21:00: 21:55 ra) 00 :00 injection syringe 150 mg medroxyPROG 2021- No 1474 150mg 150 mg, U T ESTERone 8-01 08-01 Intramuscu Heal th (Depo-Prove 21:00: 21:55 lar, Once, ra) 00 :00 On Mon injection 01/21/22 at syringe 150 1600, For mg 1 dose
SH AMY WELL
In dications: Contracept fransisco Therapy fluconazole 2021-0 Yes [id number] Take 1 UT (Diflucan) 6-30 tablet by Heal 150 MG 00:00: mouth, tablet 00 repeat in 3 days. clotrimazol Yes [id number] Apply U T e-betametha 6-30 cream to Heal sone 00:00: outer (Lotrisone) 00 vaginal cream area twice a day for 7 days. fluconazole 2021-0 Yes [id number] Take 1 UT (Diflucan) 6-30 tablet by [facility] 150 MG 00:00: mouth, tablet 00 repeat in 3 days. clotrimazol 2021-0 Yes [id number] Apply U T e-betametha 6-30 cream to [facility] [place] 00:00: outer (Lotrisone) 00 vaginal cream area twice a day for 7 days. fluconazole Yes [id number] Take 1 UT (Diflucan) 6-30 tablet by [facility] 150 MG 00:00: mouth, tablet 00 repeat in 3 days. clotrimazol 2021-0 Yes [id number] Apply U T e-betametha 6-30 cream to [facility] sone 00:00: outer (Lotrisone) 00 vaginal cream area twice a day for 7 days. fluconazole 2021-0 Yes [id number] Take 1 UT (Diflucan) 6-30 tablet by [facility] 150 MG 00:00: mouth, tablet 00 repeat in 3 days. clotrimazol 2021-0 Yes [id number] Apply U T e-betametha 6-30 cream to Heal sone 00:00: outer (Lotrisone) 00 vaginal cream area twice a day for 7 days. fluconazole 2021-0 Yes [id number] Take 1 UT (Diflucan) 6-30 tablet by [facility] 150 MG 00:00: mouth, tablet 00 repeat in 3 days. clotrimazol 2021-0 Yes [id number] Apply U T e-betametha 6-30 cream to Heal sone 00:00: outer (Lotrisone) 00 vaginal cream area twice a day for 7 days. fluconazole 2022-0 Yes [id number] Take 1 UT (Diflucan) 6-30 tablet by Heal th 150 MG 00:00: mouth, tablet 00 repeat in 3 days. clotrimazol 2022-0 Yes [id number] Apply U T e-betametha 6-30 cream to Heal th sone 00:00: outer (Lotrisone) 00 vaginal cream area twice a day for 7 days. fluconazole 2022-0 Yes [id number] Take 1 UT (Diflucan) 6-30 tablet by Heal th 150 MG 00:00: mouth, tablet 00 repeat in 3 days. clotrimazol 2022-0 Yes [id number] Apply U T e-betametha 6-30 cream to Heal th sone 00:00: outer (Lotrisone) 00 vaginal cream area twice a day for 7 days. methocarbam 2022-0 Yes 500mg Q.25D Take 500 UT ol 6-01 mg by Health (Robaxin) 00:00: mouth in 500 MG 00 the tablet morning and 500 mg at noon and 500 mg in the evening and 500 mg before bedtime. methocarbam 2022-0 Yes 500mg Q.25D Take 500 UT ol 6-01 mg by Health (Robaxin) 00:00: mouth in 500 MG 00 the tablet morning and 500 mg at noon and 500 mg in the evening and 500 mg before bedtime. methocarbam 2022-0 Yes 500mg Q.25D Take 500 UT ol 6-01 mg by Health (Robaxin) 00:00: mouth in 500 MG 00 the tablet morning and 500 mg at noon and 500 mg in the evening and 500 mg before bedtime. methocarbam 2022-0 Yes 500mg Q.25D Take 500 UT ol 6-01 mg by Health (Robaxin) 00:00: mouth in 500 MG 00 the tablet morning and 500 mg at noon and 500 mg in the evening and 500 mg before bedtime. methocarbam 2022-0 Yes 500mg Q.25D Take 500 UT ol 6-01 mg by Health (Robaxin) 00:00: mouth in 500 MG 00 the tablet morning and 500 mg at noon and 500 mg in the evening and 500 mg before bedtime. methocarbam 2022-0 Yes 500mg Q.25D Take 500 UT ol 6-01 mg by Health (Robaxin) 00:00: mouth in 500 MG 00 the tablet morning and 500 mg at noon and 500 mg in the evening and 500 mg before bedtime. methocarbam 2-0 Yes 500mg Q.25D Take 500 UT ol 6-01 mg by Health (Robaxin) 00:00: mouth in 500 MG 00 the tablet morning and 500 mg at noon and 500 mg in the evening and 500 mg before bedtime. lisinopril 2022-0 Yes UT 10 MG 5-24 Health tablet 10:05: 58 metFORMIN 2-0 Yes metformin UT XR 5-24 ER 500 mg Health (Glucophage 10:05: tablet,ext -XR) 500 MG 58 ended 24 hr release 24 tablet hr TAKE 2 TABLETS BY MOUTH TWICE A DAY lisinopril 2-0 Yes UT 10 MG 5-24 Health tablet 10:05: 58 metFORMIN 2022-0 Yes metformin UT XR 5-24 ER 500 mg Health (Glucophage 10:05: tablet,ext -XR) 500 MG 58 ended 24 hr release 24 tablet hr TAKE 2 TABLETS BY MOUTH TWICE A DAY lisinopril 2-0 Yes UT 10 MG 5-24 Health tablet 10:05: 58 metFORMIN 2-0 Yes metformin UT XR 5-24 ER 500 mg Health (Glucophage 10:05: tablet,ext -XR) 500 MG 58 ended 24 hr release 24 tablet hr TAKE 2 TABLETS BY MOUTH TWICE A DAY lisinopril 2-0 Yes UT 10 MG 5-24 Health tablet 10:05: 58 metFORMIN 2-0 Yes metformin UT XR 5-24 ER 500 mg Health (Glucophage 10:05: tablet,ext -XR) 500 MG 58 ended 24 hr release 24 tablet hr TAKE 2 TABLETS BY MOUTH TWICE A DAY lisinopril 2-0 Yes UT 10 MG 5-24 Health tablet 10:05: 58 metFORMIN 2022-0 Yes metformin UT XR 5-24 ER 500 mg Health (Glucophage 10:05: tablet,ext -XR) 500 MG 58 ended 24 hr release 24 tablet hr TAKE 2 TABLETS BY MOUTH TWICE A DAY lisinopril 2022-0 Yes UT 10 MG 5-24 Health tablet 10:05: 58 metFORMIN 2022-0 Yes metformin UT XR 5-24 ER 500 mg Health (Glucophage 10:05: tablet,ext -XR) 500 MG 58 ended 24 hr release 24 tablet hr TAKE 2 TABLETS BY MOUTH TWICE A DAY lisinopril Yes UT 10 MG 5-24 Health tablet 10:05: 58 metFORMIN 2021-0 Yes metformin UT XR 5-24 ER 500 mg Health (Glucophage 10:05: tablet,ext -XR) 500 MG 58 ended 24 hr release 24 tablet hr TAKE 2 TABLETS BY MOUTH TWICE A DAY ketorolac 2021- No [id number] 30mg Univers (TORADOL) 11-02 4108 ity of injection 16:00: 14:55 [place] 30 mg 00 :00 Medical Branch ketorolac 2021- No [id number] 30mg 30 mg, Univers (TORADOL) 11-02 4108 Intramuscu ity of injection 16:00: 14:55 lar, ONCE, [place] 30 mg 00 :00 1 dose, On Medical Fri Branch 11/02/21 at 1100, Routine methocarbam Yes [id number] 500mg Take 1 Univers oL 500 mg 5-13 4108 tablet by ity o f tablet 00:00: mouth ([facility]) Medical times Branch daily. methocarbam 2021-0 Yes [id number] 500mg Take 1 Univers oL 500 mg 5-13 4108 tablet by ity o f tablet 00:00: mouth ([facility]) Medical times Branch daily. methocarbam 2021-0 Yes [id number] 500mg Take 1 Univers oL 500 mg 5-13 4108 tablet by ity o f tablet 00:00: mouth ([facility]) Medical times Branch daily. methocarbam 2021-0 Yes [id number] 500mg Take 1 Univers oL 500 mg 5-13 4108 tablet by ity o f tablet 00:00: mouth ([facility]) Medical times Branch daily. methocarbam 2021-0 Yes [id number] 500mg Take 1 Univers oL 500 mg 5-13 4108 tablet by ity o f tablet 00:00: mouth (four) Medical times Branch daily. TOPIRAMATE Yes TAKE 1 Unive rs 100 mg 3-24 TABLET BY ity of tablet 00:00: MOUTH 00 TWICE Medical DAILY Branch TOPIRAMATE 2021-0 Yes TAKE 1 Unive rs 100 mg 3-24 TABLET BY ity of tablet 00:00: MOUTH [place] 00 TWICE Medical DAILY Branch TOPIRAMATE 2-0 Yes TAKE 1 Unive rs 100 mg 3-24 TABLET BY ity of tablet 00:00: MOUTH [place] 00 TWICE Medical DAILY Branch TOPIRAMATE 2022-0 2022- No TAKE 1 Univ ers 100 mg 3-24 -02 TABLET BY ity of tablet 00:00: 00:00 MOUTH [place] 00 :00 TWICE Medical DAILY Branch TOPIRAMATE 2-0 2022- No TAKE 1 Univ ers 100 mg 3-24 -02 TABLET BY ity of tablet 00:00: 00:00 MOUTH [place] 00 :00 TWICE Medical DAILY Branch metFORMIN 2-0 Yes 1000mg Take 1,000 Univers 1,000 mg 3-01 mg by ity of tablet 11:07: mouth. [address] lisinopriL 2-0 Yes 10mg 10 mg. Unive rs 10 mg 3-01 ity of tablet 11:07: [address] metFORMIN 2-0 Yes 1000mg Take 1,000 Univers 1,000 mg 3-01 mg by ity of tablet 11:07: mouth. [address] lisinopriL 2-0 Yes 10mg 10 mg. Unive rs 10 mg 3-01 ity of tablet 11:07: [address] metFORMIN 2-0 Yes 1000mg Take 1,000 Univers 1,000 mg 3-01 mg by ity of tablet 11:07: mouth. [address] lisinopriL 2-0 Yes 10mg 10 mg. Unive rs 10 mg 3-01 ity of tablet 11:07: [address] metFORMIN 2022-0 Yes 1000mg Take 1,000 Univers 1,000 mg 3-01 mg by ity of tablet 11:07: mouth. [address] lisinopriL 2-0 Yes 10mg 10 mg. Unive rs 10 mg 3-01 ity of tablet 11:07: [address] metFORMIN 2022-0 Yes 1000mg Take 1,000 Univers 1,000 mg 3-01 mg by ity of tablet 11:07: mouth. [address] lisinopriL 2022-0 Yes 10mg 10 mg. Unive rs 10 mg 3-01 ity of tablet 11:07: [address] metFORMIN 2022-0 Yes 1000mg Take 1,000 Univers 1,000 mg 3-01 mg by ity of tablet 11:07: mouth. [address] lisinopriL Yes 10mg 10 mg. Unive rs 10 mg 3-01 [facility]07[facility] [address] [facility] Yes INJECT ONE UT MG/0.5ML 0-25 (1) PEN Health solution 00:00: SUBCUTANEO pen-injecto 00 USLY ONCE r A WEEK DIRECTED. [facility] 3 2020-06 Yes INJECT ONE UT MG/0.5ML 0-25 (1) PEN Health solution 00:00: SUBCUTANEO pen-injecto 00 USLY ONCE r A WEEK DIRECTED. [place] [address] 2020-06 Yes INJECT ONE UT MG/0.5ML 0-25 (1) PEN Health solution 00:00: SUBCUTANEO pen-injecto 00 USLY ONCE r A WEEK DIRECTED. [place] [address] 2020-06 Yes INJECT ONE UT MG/0.5ML 0-25 (1) PEN Health solution 00:00: SUBCUTANEO pen-injecto 00 USLY ONCE r A WEEK DIRECTED. [place] [address] 2020-06 Yes INJECT ONE UT MG/0.5ML 0-25 (1) PEN Health solution 00:00: SUBCUTANEO pen-injecto 00 USLY ONCE r A WEEK DIRECTED. [place] [address] 2020-06 Yes INJECT ONE UT MG/0.5ML 0-25 (1) PEN Health solution 00:00: SUBCUTANEO pen-injecto 00 USLY ONCE r A WEEK DIRECTED. [place] [address] 2020-06 Yes INJECT ONE UT MG/0.5ML 0-25 (1) PEN Health solution 00:00: SUBCUTANEO pen-injecto 00 USLY ONCE r A WEEK DIRECTED. medroxyPROG Yes UT ESTERone 01-11 Health (Depo-Prove 14:56: ra) 150 54 MG/ML injection metFORMIN, Yes UT OSM, 01-11 Health (Fortamet) 14:56: 1000 MG 24 54 hr tablet nortriptyli Yes UT ne 01-11 Health ([place]) 14:56: 75 MG 54 capsule metFORMIN, Yes UT OSM, 7 [facility] 14:56: 1000 MG 24 54 hr tablet nortriptyli Yes UT ne 01-11 Health ([facility]) 14:56: 75 MG 54 capsule metFORMIN, 0 Yes UT OSM, 01-11 [facility] 14:56: 1000 MG 24 54 hr tablet nortriptyli Yes UT ne 01-11 Health ([facility]) 14:56: 75 MG 54 capsule metFORMIN, 0 Yes UT OSM, 01-11 [facility] 14:56: 1000 MG 24 54 hr tablet nortriptyli Yes UT ne 01-11 Health ([facility]) 14:56: 75 MG 54 capsule metFORMIN, Yes UT OSM, 01-11 Health [facility] 14:56: 1000 MG 24 54 hr tablet nortriptyli Yes UT ne 01-11 Health ([facility]) 14:56: 75 MG 54 capsule metFORMIN, Yes UT OSM, 01-11 Health [facility] 14:56: 1000 MG 24 54 hr tablet nortriptyli Yes UT ne 01-11 Health ([facility]) 14:56: 75 MG 54 capsule metFORMIN, Yes UT OSM, 01-11 Health [facility] 14:56: 1000 MG 24 54 hr tablet nortriptyli 0 Yes UT ne 01-11 Health ([facility]) 14:56: 75 MG 54 capsule topiramate Yes 100mg Take 1 Univ ers 100 mg 7-16 tablet by ity of tablet 00:00: mouth 2 [place] 00 (two) Medical times Branch daily. dulaglutide Yes INJECT U nivers (TRULICITY) 7-16 DIRECTED ity of 1.5 mg/0.5 00:00: SUBCUTANEO [place] mL PnIj 00 US ONCE A Medical WEEK 90 Branch DAYS dulaglutide Yes INJECT U nivers (TRULICITY) 7-16 DIRECTED ity of 1.5 mg/0.5 00:00: SUBCUTANEO [place] mL PnIj 00 US ONCE A Medical WEEK 90 Branch DAYS metoprolol 2020-0 Yes 25mg Take 25 mg U nivers succinate 7-16 by mouth. ity o f XL 25 mg 24 00:00: [place] hr tablet 00 Medical Branch dulaglutide 0 Yes INJECT U nivers (TRULICITY) 7-16 DIRECTED ity of 1.5 mg/0.5 00:00: SUBCUTANEO [place] mL PnIj 00 US ONCE A Medical WEEK 90 Branch DAYS metoprolol 2020-0 Yes 25mg Take 25 mg U nivers succinate 7-16 by mouth. ity o f XL 25 mg 24 00:00: [place] hr tablet 00 Medical Branch dulaglutide 0 Yes INJECT U nivers (TRULICITY) 7-16 DIRECTED ity of 1.5 mg/0.5 00:00: SUBCUTANEO [place] mL PnIj 00 US ONCE A Medical WEEK 90 Branch DAYS metoprolol 0 Yes 25mg Take 25 mg U nivers succinate 7-16 by mouth. ity o f XL 25 mg 24 00:00: [place] hr tablet 00 Medical Branch dulaglutide 0 Yes INJECT U nivers (TRULICITY) 7-16 DIRECTED ity of 1.5 mg/0.5 00:00: SUBCUTANEO [place] mL PnIj 00 US ONCE A Medical WEEK 90 Branch DAYS metoprolol 2020-0 Yes 25mg Take 25 mg U nivers succinate 7-16 by mouth. ity o f XL 25 mg 24 00:00: [place] hr tablet 00 Medical Branch dulaglutide 0 Yes INJECT U nivers (TRULICITY) 7-16 DIRECTED ity of 1.5 mg/0.5 00:00: SUBCUTANEO [place] mL PnIj 00 US ONCE A Medical WEEK 90 Branch DAYS metoprolol 2020-0 Yes 25mg Take 25 mg U nivers succinate 7-16 by mouth. ity o f XL 25 mg 24 00:00: [place] hr tablet 00 Medical Branch Trulicity 2020-0 Yes INJECT UT 1.5 7-16 DIRECTED Health MG/0.5ML 00:00: SUBCUTANEO solution 00 US ONCE A pen-injecto WEEK 90 r DAYS metoprolol 0 Yes 25mg QD Take 25 mg U T succinate 7-16 by mouth 1 Heal th XL 00:00: (one) time (Toprol-XL) 00 each day. 25 MG 24 hr tablet topiramate 2020-0 Yes 100mg Take 100 UT (Topamax) 7-16 mg by Health 100 MG 00:00: mouth. tablet 00 topiramate 2020-0 Yes UT (Topamax) 7-16 Health 100 MG 00:00: tablet 00 Trulicity 2020-0 Yes INJECT UT 1.5 7-16 DIRECTED Health MG/0.5ML 00:00: SUBCUTANEO solution 00 US ONCE A pen-injecto WEEK 90 r DAYS metoprolol 2020-0 Yes 25mg QD Take 25 mg U T succinate 7-16 by mouth 1 Heal th XL 00:00: (one) time (Toprol-XL) 00 each day. 25 MG 24 hr tablet topiramate 2020-0 Yes 100mg Take 100 UT (Topamax) 7-16 mg by Health 100 MG 00:00: mouth. tablet 00 topiramate 2020-0 Yes UT (Topamax) 7-16 Health 100 MG 00:00: tablet 00 Trulicity 2020-0 Yes INJECT UT 1.5 7-16 DIRECTED Health MG/0.5ML 00:00: SUBCUTANEO solution 00 US ONCE A pen-injecto WEEK 90 r DAYS metoprolol 2020-0 Yes 25mg QD Take 25 mg U T succinate 7-16 by mouth 1 Heal XL 00:00: (one) time (Toprol-XL) 00 each day. 25 MG 24 hr tablet topiramate 2020-0 Yes 100mg Take 100 UT (Topamax) 7-16 mg by Health 100 MG 00:00: mouth. tablet 00 topiramate 2020-0 Yes UT (Topamax) 7-16 Health 100 MG 00:00: tablet 00 Trulicity 2020-0 Yes INJECT UT 1.5 7-16 DIRECTED Health MG/0.5ML 00:00: SUBCUTANEO solution 00 US ONCE A pen-injecto WEEK 90 r DAYS metoprolol 2020-0 Yes 25mg QD Take 25 mg U T succinate 7-16 by mouth 1 Heal th XL 00:00: (one) time (Toprol-XL) 00 each day. 25 MG 24 hr tablet topiramate 1-0 Yes 100mg Take 100 UT (Topamax) 7-16 mg by Health 100 MG 00:00: mouth. tablet 00 topiramate 2020-0 Yes UT (Topamax) 7-16 Health 100 MG 00:00: tablet 00 Trulicity 0 Yes INJECT UT 1.5 7-16 DIRECTED Health MG/0.5ML 00:00: SUBCUTANEO solution 00 US ONCE A pen-injecto WEEK 90 r DAYS metoprolol 0 Yes 25mg QD Take 25 mg U T succinate 7-16 by mouth 1 Heal th XL 00:00: (one) time (Toprol-XL) 00 each day. 25 MG 24 hr tablet topiramate 2020-0 Yes 100mg Take 100 UT (Topamax) 7-16 mg by Health 100 MG 00:00: mouth. tablet 00 topiramate 2020-0 Yes UT (Topamax) 7-16 Health 100 MG 00:00: tablet 00 Trulicity 0 Yes INJECT UT 1.5 7-16 DIRECTED Health MG/0.5ML 00:00: SUBCUTANEO solution 00 US ONCE A pen-injecto WEEK 90 r DAYS metoprolol 0 Yes 25mg QD Take 25 mg U T succinate 7-16 by mouth 1 Heal th XL 00:00: (one) time (Toprol-XL) 00 each day. 25 MG 24 hr tablet topiramate 2020-0 Yes 100mg Take 100 UT (Topamax) 7-16 mg by Health 100 MG 00:00: mouth. tablet 00 topiramate 2020-0 Yes UT (Topamax) 7-16 Health 100 MG 00:00: tablet 00 Trulicity 0 Yes INJECT UT 1.5 7-16 DIRECTED Health MG/0.5ML 00:00: SUBCUTANEO solution 00 US ONCE A pen-injecto WEEK 90 r DAYS metoprolol 2020-0 Yes 25mg QD Take 25 mg U T succinate 7-16 by mouth 1 Heal th XL 00:00: (one) time (Toprol-XL) 00 each day. 25 MG 24 hr tablet topiramate 2020-0 Yes 100mg Take 100 UT (Topamax) 7-16 mg by Health 100 MG 00:00: mouth. tablet 00 topiramate 2020-0 Yes UT (Topamax) 7-16 Health 100 MG 00:00: tablet 00 topiramate 2020-0 2022- No 100mg Take 1 Uni vers 100 mg 7-16 03-24 tablet by ity of tablet 00:00: 00:00 mouth 2 [place] 00 :00 (two) Medical times Branch daily. topiramate 1-0 Yes [id number] Take two Univers 25 mg 7-14 tablets by ity of tablet 00:00: mouth [place] 00 twice Medical daily. Branch topiramate 1-0 Yes [id number] Take two Univers 25 mg 7-14 tablets by ity of tablet 00:00: mouth [place] 00 twice Medical daily. Branch topiramate 2020-0 Yes 50mg Q.5D Take 50 mg U T (Topamax) 7-14 by mouth 2 Heal th 25 MG 00:00: (two) tablet 00 times a day. topiramate 1-0 Yes 50mg Q.5D Take 50 mg U T (Topamax) 7-14 by mouth 2 Heal th 25 MG 00:00: (two) tablet 00 times a day. topiramate 1-0 Yes 50mg Q.5D Take 50 mg U T (Topamax) 7-14 by mouth 2 Heal th 25 MG 00:00: (two) tablet 00 times a day. topiramate 1-0 Yes 50mg Q.5D Take 50 mg U T (Topamax) 7-14 by mouth 2 Heal th 25 MG 00:00: (two) tablet 00 times a day. topiramate 1-0 Yes 50mg Q.5D Take 50 mg U T (Topamax) 7-14 by mouth 2 Heal th 25 MG 00:00: (two) tablet 00 times a day. topiramate 1-0 Yes 50mg Q.5D Take 50 mg U T (Topamax) 7-14 by mouth 2 Heal th 25 MG 00:00: (two) tablet 00 times a day. topiramate 2021-0 Yes 50mg Q.5D Take 50 mg U T (Topamax) 7-14 by mouth 2 Heal th 25 MG 00:00: (two) tablet 00 times a day. topiramate 2021-0 2021- No [id number] Take two Univers 25 mg 7-14 07-16 tablets by ity of tablet 00:00: 00:00 mouth [place] 00 :00 twice Medical daily. Branch topiramate 1-0 Yes [id number] 25mg Take 1 Univers 25 mg 6-18 tablet by ity of tablet 00:00: mouth 2 [place] 00 (two) Medical times Branch daily. topiramate 2020-0 Yes [id number] 25mg Take 1 Univers 25 mg 6-18 tablet by ity of tablet 00:00: mouth 2 [place] 00 (two) Medical times Branch daily. topiramate 2020-0 Yes [id number] 25mg Take 1 Univers 25 mg 6-18 tablet by ity of tablet 00:00: mouth 2 [place] 00 (two) Medical times Branch daily. topiramate 2020-0 Yes Take two UT (Topamax) 6-18 tablets by Heal th 25 MG 00:00: mouth tablet 00 twice daily. topiramate 2020-0 Yes Take two UT (Topamax) 6-18 tablets by Heal th 25 MG 00:00: mouth tablet 00 twice daily. topiramate 2020-0 Yes Take two UT (Topamax) 6-18 tablets by Heal th 25 MG 00:00: mouth tablet 00 twice daily. topiramate 2020-0 Yes Take two UT (Topamax) 6-18 tablets by Heal th 25 MG 00:00: mouth tablet 00 twice daily. topiramate 2020-0 Yes Take two UT (Topamax) 6-18 tablets by Heal th 25 MG 00:00: mouth tablet 00 twice daily. topiramate 2020-0 Yes Take two UT (Topamax) 6-18 tablets by Heal th 25 MG 00:00: mouth tablet 00 twice daily. topiramate 2020-0 Yes Take two UT (Topamax) 6-18 tablets by Heal th 25 MG 00:00: mouth tablet 00 twice daily. topiramate 1-0 2021- No [id number] 25mg Take 1 Univers 25 mg 6-18 07-14 tablet by ity of tablet 00:00: 00:00 mouth 2 [place] 00 :00 (two) Medical times Branch daily. topiramate 1-0 2021- No [id number] 25mg Take 1 Univers 25 mg 6-18 07-14 tablet by ity of tablet 00:00: 00:00 mouth 2 [place] 00 :00 (two) Medical times Branch daily. topiramate 1-0 2021- No [id number] 25mg Take 1 Univers 25 mg 18 07-14 tablet by ity of tablet 00:00: 00:00 mouth 2 [place] 00 :00 (two) Medical times Branch daily. dexamethaso No 10mg 10 mg, IV Univers ne 11-24 Push, ity of (DECADRON 23:00: 22:46 ONCE, 1 [place] PHOSPHATE) 00 :00 dose, Fri Medi fely injection 11/24/20 at Bran h 10 mg 1800, STAT diphenhydrA No 25mg 25 mg, Uni vers MINE 11-24 Slow IV ity of (BENADRYL) 23:00: 22:46 Push, [place] injection 00 :00 ONCE, 1 Medical 25 mg dose, Fri Branch 11/24/20 at 1800, STAT ketorolac No 15mg 15 mg, Unive rs (TORADOL) 11-24 Slow IV ity of injection 23:00: 22:46 Push, [place] 15 mg 00 :00 ONCE, 1 Medical dose, Fri Branch 11/24/20 at 1800, RAY
Fa culty member approving Restricted medication : MARGOT VINCENT metoclopram No 10mg 10 mg, Uni vers che HCl 11-24 Slow IV ity of (REGLAN) 23:00: 22:46 Push, [place] injection 00 :00 ONCE, 1 Medical 10 mg dose, Fri Branch 11/24/20 at 1800, RAY NaCl 0.9% 2020- No 1000mL at 999 Uni vers (NS) bolus 11-24 mL/hr, ity of infusion 22:15: 23:45 1,000 mL, [place] 1,000 mL 00 :00 IV Medical Infusion, Branch ONCE, 1 dose, 11/24/20 at 1715, RAY butalbital- Yes [id number] 1{tbl} Take 1 Univers acetaminoph -04 tablet by ity of en-caff 00:00: mouth [place] 50-325-40 00 every 6 Medical mg tablet (six) Branch hours as needed for Pain (scale 7-10). butalbital- Yes [id number] 1{tbl} Take 1 Univers acetaminoph 6-04 tablet by ity of en-caff 00:00: mouth [place] 50-325-40 00 every 6 Medical mg tablet (six) Branch hours as needed for Pain (scale 7-10). butalbital- Yes [id number] 1{tbl} Take 1 Univers acetaminoph 6-04 tablet by ity of en-caff 00:00: mouth [place] 50-325-40 00 every 6 Medical mg tablet (six) Branch hours as needed for Pain (scale 7-10). butalbital- Yes [id number] 1{tbl} Take 1 Univers acetaminoph 6-04 tablet by ity of en-caff 00:00: mouth [place] 50-325-40 00 every 6 Medical mg tablet (six) Branch hours as needed for Pain (scale 7-10). butalbital Yes [id number] 1{tbl} Take 1 Univers acetaminoph 6-04 tablet by ity of en-caff 00:00: mouth [place] 50-325-40 00 every 6 Medical mg tablet (six) Branch hours as needed for Pain (scale 7-10). butalbital Yes [id number] 1{tbl} Take 1 Univers acetaminoph 6-04 tablet by ity of en-caff 00:00: mouth [place] 50-325-40 00 every 6 Medical mg tablet (six) Branch hours as needed for Pain (scale 7-10). butalbital- Yes [id number] 1{tbl} Take 1 Univers acetaminoph 6-04 tablet by ity of en-caff 00:00: mouth [place] 50-325-40 00 every 6 Medical mg tablet (six) Branch hours as needed for Pain (scale 7-10). butalbital- Yes [id number] 1{tbl} Take 1 Univers acetaminoph 6-04 tablet by ity of en-caff 00:00: mouth [place] 50-325-40 00 every 6 Medical mg tablet (six) Branch hours as needed for Pain (scale 7-10). butalbital Yes [id number] 1{tbl} Take 1 Univers acetaminoph 6-04 tablet by ity of en-caff 00:00: mouth [place] 50-325-40 00 every 6 Medical mg tablet (six) Branch hours as needed for Pain (scale 7-10). butalbital- Yes [id number] 1{tbl} Take 1 Univers acetaminoph 6-04 tablet by ity of en-caff 00:00: mouth [place] 50-325-40 00 every 6 Medical mg tablet (six) Branch hours as needed for Pain (scale 7-10). butalbital- Yes [id number] 1{tbl} Take 1 Univers acetaminoph 6-04 tablet by ity of en-caff 00:00: mouth [place] 50-325-40 00 every 6 Medical mg tablet (six) Branch hours as needed for Pain (scale 7-10). butalbital- Yes [id number] 1{tbl} Take 1 Univers acetaminoph 6-04 tablet by ity of en-caff 00:00: mouth [place] 50-325-40 00 every 6 Medical mg tablet (six) Branch hours as needed for Pain (scale 7-10). butalbital- Yes [id number] 1{tbl} Take 1 Univers acetaminoph 6-04 tablet by ity of en-caff 00:00: mouth [place] 50-325-40 00 every 6 Medical mg tablet (six) Branch hours as needed for Pain (scale 7-10). butalbital- Yes 1{tbl} Take 1 UT acetaminoph 6-04 tablet by [facility] en-caffeine 00:00: mouth. 50-325-40 00 MG tablet butalbital- 0 Yes 1{tbl} Q6H Take 1 UT acetaminoph 6-04 tablet by [facility] en-caffeine 00:00: mouth 50-325-40 00 every 6 MG tablet (six) hours if needed. TAKE 1 TABLET BY MOUTH EVERY 6 HOURS NEEDED FOR SEVERE PAIN butalbital- Yes 1{tbl} Take 1 UT acetaminoph 6-04 tablet by [facility] en-caffeine 00:00: mouth. 50-325-40 00 MG tablet butalbital- 2020-0 Yes 1{tbl} Q6H Take 1 UT acetaminoph 6-04 tablet by [facility] en-caffeine 00:00: mouth 50-325-40 00 every 6 MG tablet (six) hours if needed. TAKE 1 TABLET BY MOUTH EVERY 6 HOURS NEEDED FOR SEVERE PAIN butalbital- 202-0 Yes 1{tbl} Take 1 UT acetaminoph 6-04 tablet by [facility] en-caffeine 00:00: mouth. 50-325-40 00 MG tablet butalbital- 2020-0 Yes 1{tbl} Q6H Take 1 UT acetaminoph 6-04 tablet by [facility] en-caffeine 00:00: mouth 50-325-40 00 every 6 MG tablet (six) hours if needed. TAKE 1 TABLET BY MOUTH EVERY 6 HOURS NEEDED FOR SEVERE PAIN butalbital- 2020-0 Yes 1{tbl} Take 1 UT acetaminoph 6-04 tablet by [facility] en-caffeine 00:00: mouth. 50-325-40 00 MG tablet butalbital- 2020-0 Yes 1{tbl} Q6H Take 1 UT acetaminoph 6-04 tablet by [facility] en-caffeine 00:00: mouth 50-325-40 00 every 6 MG tablet (six) hours if needed. TAKE 1 TABLET BY MOUTH EVERY 6 HOURS NEEDED FOR SEVERE PAIN butalbital- 2020-0 Yes 1{tbl} Take 1 UT acetaminoph 6-04 tablet by [facility] en-caffeine 00:00: mouth. 50-325-40 00 MG tablet butalbital- 2020-0 Yes 1{tbl} Q6H Take 1 UT acetaminoph 6-04 tablet by [facility] en-caffeine 00:00: mouth 50-325-40 00 every 6 MG tablet (six) hours if needed. TAKE 1 TABLET BY MOUTH EVERY 6 HOURS NEEDED FOR SEVERE PAIN butalbital- 2020-0 Yes 1{tbl} Take 1 UT acetaminoph 6-04 tablet by [facility] en-caffeine 00:00: mouth. 50-325-40 00 MG tablet butalbital- 2021-0 Yes 1{tbl} Q6H Take 1 UT acetaminoph 6-04 tablet by [facility] en-caffeine 00:00: mouth 50-325-40 00 every 6 MG tablet (six) hours if needed. TAKE 1 TABLET BY MOUTH EVERY 6 HOURS NEEDED FOR SEVERE PAIN butalbital- 2021-0 Yes 1{tbl} Take 1 UT acetaminoph 6-04 tablet by [facility] en-caffeine 00:00: mouth. 50-325-40 00 MG tablet butalbital- 2021-0 Yes 1{tbl} Q6H Take 1 UT acetaminoph 6-04 tablet by [facility] en-caffeine 00:00: mouth 50-325-40 00 every 6 MG tablet (six) hours if needed. TAKE 1 TABLET BY MOUTH EVERY 6 HOURS NEEDED FOR SEVERE PAIN lisinopril 2020-0 Yes 10mg 10 mg. UT 10 MG 5-20 Health tablet 13:57: 26 lisinopril 2020-0 Yes 10mg 10 mg. UT 10 MG 5-20 Health tablet 13:57: 26 lisinopril 2020-0 Yes 10mg 10 mg. UT 10 MG 5-20 Health tablet 13:57: 26 lisinopril 2020-0 Yes 10mg 10 mg. UT 10 MG 5-20 Health tablet 13:57: 26 lisinopril 2020-0 Yes 10mg 10 mg. UT 10 MG 5-20 Health tablet 13:57: 26 lisinopril 2020-0 Yes 10mg 10 mg. UT 10 MG 5-20 Health tablet 13:57: 26 lisinopril 2020-0 Yes 10mg 10 mg. UT 10 MG 5-20 Health tablet 13:57: 26 dicyclomine 2020-2020- No [id number] 20mg Take 1 [facility] 20 mg 5- 05-22 tablet by [facility] of tablet 00:00: 04:59 mouth 2 [place] 00 :00 (two) Medical times Branch daily for 14 days. dicyclomine 2020-2020- No [id number] 20mg Take 1 [facility] 20 mg 5-07 05-22 tablet by ity of tablet 00:00: 04:59 mouth 2 [place] 00 :00 (two) Medical times Branch daily for 14 days. FENTanyl PF 2020- No 50ug 50 mcg, [facility] (SUBLIMAZE 08-05 Intramuscu it y of (PF)) 23:45: 23:07 lar, ONCE, [place] injection 00 :00 1 dose, Medical 50 mcg Sat Branch 08/05/20 at 1745, Routine acetaminoph 2021-0 Yes 4647 1{tbl} Take 1 [facility] en-codeine 2-13 tablet by ity of (TYLENOL-CO 00:00: mouth [place] DEINE #3) 00 every 4 Medical 300-30 mg (four) Branch tablet hours as needed for Pain (scale 1-3). Indication s: acute pain acetaminoph 2021-0 Yes 4647 1{tbl} Take 1 [facility] [place] en-codeine 2-13 tablet by ity of (TYLENOL-CO 00:00: mouth [place] DEINE #3) 00 every 4 Medical 300-30 mg (four) Branch tablet hours as needed for Pain (scale 1-3). Indication s: acute pain acetaminoph 2021-0 Yes 4647 1{tbl} Take 1 [place] en-codeine 2-13 tablet by ity of (TYLENOL-CO 00:00: mouth [place] DEINE #3) 00 every 4 Medical 300-30 mg (four) Branch tablet hours as needed for Pain (scale 1-3). Indication s: acute pain acetaminoph 2021-0 Yes 4647 1{tbl} Take 1 [place] en-codeine 2-13 tablet by ity of (TYLENOL-CO 00:00: mouth [place] DEINE #3) 00 every 4 Medical 300-30 mg (four) Branch tablet hours as needed for Pain (scale 1-3). Indication s: acute pain acetaminoph 2021-0 Yes 4647 1{tbl} Take 1 [place] en-codeine 2-13 tablet by ity of (TYLENOL-CO 00:00: mouth [place] DEINE #3) 00 every 4 Medical 300-30 mg (four) Branch tablet hours as needed for Pain (scale 1-3). Indication s: acute pain acetaminoph 2021-0 Yes 4647 1{tbl} Take 1 [place] en-codeine 2-13 tablet by ity of (TYLENOL-CO 00:00: mouth [place] DEINE #3) 00 every 4 Medical 300-30 mg (four) Branch tablet hours as needed for Pain (scale 1-3). Indication s: acute pain acetaminoph 2021-0 Yes 4647 1{tbl} Take 1 [place] en-codeine 2-13 tablet by ity of (TYLENOL-CO 00:00: mouth [place] DEINE #3) 00 every 4 Medical 300-30 mg (four) Branch tablet hours as needed for Pain (scale 1-3). Indication s: acute pain acetaminoph 2021-0 Yes 4647 1{tbl} Take 1 [place] en-codeine 2-13 tablet by ity of (TYLENOL-CO 00:00: mouth [place] DEINE #3) 00 every 4 Medical 300-30 mg (four) Branch tablet hours as needed for Pain (scale 1-3). Indication s: acute pain acetaminoph 2021-0 Yes 4647 1{tbl} Take 1 [facility] [place] en-codeine 2-13 tablet by ity of (TYLENOL-CO 00:00: mouth [place] DEINE #3) 00 every 4 Medical 300-30 mg (four) Branch tablet hours as needed for Pain (scale 1-3). Indication s: acute pain acetaminoph 1-0 Yes 4647 1{tbl} Take 1 [facility] en-codeine 2-13 tablet by ity of (TYLENOL-CO 00:00: mouth [place] DEINE #3) 00 every 4 Medical 300-30 mg (four) Branch tablet hours as needed for Pain (scale 1-3). Indication s: acute pain acetaminoph 1-0 Yes 4647 1{tbl} Take 1 [place] en-codeine 2-13 tablet by ity of (TYLENOL-CO 00:00: mouth [place] DEINE #3) 00 every 4 Medical 300-30 mg (four) Branch tablet hours as needed for Pain (scale 1-3). Indication s: acute pain acetaminoph 2021-0 2022- No 4647 1{tbl} Take 1 U nivers en-codeine 2-13 05-13 tablet by ity of (TYLENOL-CO 00:00: 00:[place] DEINE #3[place] 00 :00 every 4 Medical 300-30 mg (four) Branch tablet hours as needed for Pain (scale 1-3). Indication s: acute pain metoprolol 1-0 Yes 25mg Q.[id number] Take 25 mg UT tartrate 1-25 [id number] by mouth 3 Health (Lopressor) 00:00: 3D (three) 25 MG 00 times a tablet day. metoprolol 2021-0 Yes 25mg Q.[id number] Take 25 mg UT tartrate 1-25 [id number] by mouth 3 Health (Lopressor) 00:00: 3D (three) 25 MG 00 times a tablet day. metoprolol 2021-0 Yes 25mg Q.[id number] Take 25 mg UT tartrate 1-25 [id number] by mouth 3 Health (Lopressor) 00:00: 3D (three) 25 MG 00 times a tablet day. metoprolol 2021-0 Yes 25mg Q.[id number] Take 25 mg UT tartrate 1-25 [id number] by mouth 3 Health (Lopressor) 00:00: 3D (three) 25 MG 00 times a tablet day. metoprolol 2021-0 Yes 25mg Q.[id number] Take 25 mg UT tartrate 1-25 [id number] by mouth 3 Health (Lopressor) 00:00: 3D (three) 25 MG 00 times a tablet day. metoprolol 2021-0 Yes 25mg Q.[id number] Take 25 mg UT tartrate 1-25 [id number] by mouth 3 Health (Lopressor) 00:00: 3D (three) 25 MG 00 times a tablet day. metoprolol 2021-0 Yes 25mg Q.[id number] Take 25 mg UT tartrate 1-25 [id number] by mouth 3 Health (Lopressor) 00:00: 3D (three) 25 MG 00 times a tablet day. pantoprazol 2020-0 Yes 40mg Take 40 mg UT e 7-16 by mouth 1 Health (ProtoNix) 00:00: (one) time 40 MG EC 00 each day tablet in the morning. pantoprazol 2020-0 Yes 40mg Take 40 mg UT e 7-16 by mouth 1 Health (ProtoNix) 00:00: (one) time 40 MG EC 00 each day tablet in the morning. pantoprazol 2020-0 Yes 40mg Take 40 mg UT e 7-16 by mouth 1 Health (ProtoNix) 00:00: (one) time 40 MG EC 00 each day tablet in the morning. pantoprazol 2020-0 Yes 40mg Take 40 mg UT e 7-16 by mouth 1 Health (ProtoNix) 00:00: (one) time 40 MG EC 00 each day tablet in the morning. pantoprazol 2020-0 Yes 40mg Take 40 mg UT e 7-16 by mouth 1 Health (ProtoNix) 00:00: (one) time 40 MG EC 00 each day tablet in the morning. pantoprazol 2020-0 Yes 40mg Take 40 mg UT e 7-16 by mouth 1 Health (ProtoNix) 00:00: (one) time 40 MG EC 00 each day tablet in the morning. pantoprazol 2020-0 Yes 40mg Take 40 mg UT e 7-16 by mouth 1 Health (ProtoNix) 00:00: (one) time 40 MG EC 00 each day tablet in the morning. [facility] 2019-0 No 200 mg, Mem oria a 9-30 Route: IM, l 21:44: Drug form: [place] 00 SUSP, ONCE, Dosing Weight 103.636, kg, Start date: 03/22/19 16:44:00 CDT, Stop date: 03/22/19 16:44:00 CDT [facility] 2019-0 No 200 mg, Mem oria a 9-30 Route: IM, l 21:44: Drug form: [place] 00 SUSP, ONCE, Dosing Weight 103.636, kg, Start date: 03/22/19 16:44:00 CDT, Stop date: 03/22/19 16:44:00 CDT [facility] 2019-0 No 200 mg, Mem oria a 9-30 Route: IM, l 21:44: Drug form: [place] 00 SUSP, ONCE, Dosing Weight 103.636, kg, Start date: 03/22/19 16:44:00 CDT, Stop date: 03/22/19 16:44:00 CDT [facility] 2019-0 No 200 mg, Mem oria a 9-30 Route: IM, l 21:44: Drug form: [place] 00 SUSP, ONCE, Dosing Weight 103.636, kg, Start date: 03/22/19 16:44:00 CDT, Stop date: 03/22/19 16:44:00 CDT [facility] 2019-0 No 200 mg, Mem oria a 9-30 Route: IM, l 21:44: Drug form: [place] 00 SUSP, ONCE, Dosing Weight 103.636, kg, Start date: 03/22/19 16:44:00 CDT, Stop date: 03/22/19 16:44:00 CDT [facility] 2019-0 No 200 mg, Mem oria a 03-22 Route: IM, l 21:44: Drug form: [place] 00 SUSP, ONCE, Dosing Weight 103.636, kg, Start date: 03/22/19 16:44:00 CDT, Stop date: 03/22/19 16:44:00 CDT [facility] 2019-0 No 200 mg, Mem oria a 30 Route: IM, l 21:44: Drug form: [place] 00 SUSP, ONCE, Dosing Weight 103.636, kg, Start date: 03/22/19 16:44:00 CDT, Stop date: 03/22/19 16:44:00 CDT 0.25 MG, 2019 Yes See Memoria 0.5 MG Dose 7-11 Instructio l 1.5 ML 21:51: ns, 0.25 [place] semaglutide 00 mg SUB-Q, 1.34 MG/ML # 1 Pen pen(s), 0 Injector Refill(s), [Ozempic] other 0.25 MG, 2019 Yes See Memoria 0.5 MG Dose 7-11 Instructio l 1.5 ML 21:51: ns, 0.25 [place] semaglutide 00 mg SUB-Q, 1.34 MG/ML # 1 Pen pen(s), 0 Injector Refill(s), [Ozempic] other 0.25 MG, [id number] Yes See Memoria 0.5 MG Dose 7-11 Instructio l 1.5 ML 21:51: ns, 0.25 [place] semaglutide 00 mg SUB-Q, 1.34 MG/ML # 1 Pen pen(s), 0 Injector Refill(s), [Ozempic] other 0.25 MG, 2019-0 Yes See Memoria 0.5 MG Dose 7-11 Instructio l 1.5 ML 21:51: ns, 0.25 [place] semaglutide 00 mg SUB-Q, 1.34 MG/ML # 1 Pen pen(s), 0 Injector Refill(s), [Ozempic] other 0.25 MG, 2019-0 Yes See Memoria 0.5 MG Dose 7-11 Instructio l 1.5 ML 21:51: ns, 0.25 [place] semaglutide 00 mg SUB-Q, 1.34 MG/ML # 1 Pen pen(s), 0 Injector Refill(s), [Ozempic] other 0.25 MG, 2019-0 Yes See Memoria 0.5 MG Dose 7-11 Instructio l 1.5 ML 21:51: ns, 0.25 [place] semaglutide 00 mg SUB-Q, 1.34 MG/ML # 1 Pen pen(s), 0 Injector Refill(s), [Ozempic] other 0.25 MG, 2019-0 Yes See Memoria 0.5 MG Dose 7-11 Instructio l 1.5 ML 21:51: ns, 0.25 [place] semaglutide 00 mg SUB-Q, 1.34 MG/ML # 1 Pen pen(s), 0 Injector Refill(s), [Ozempic] other Medroxyprog 2019-0 No 200 mg, Mem oria esterone 7-11 Route: IM, l 21:44: ONCE, Dosing Weight 104.659, kg, (DEPO-PROV ERA), Start date: 12/31/18 16:44:00 CDT, Stop date: 12/31/18 16:44:00 CDT Medroxyprog 2019-0 No 200 mg, Mem oria esterone 7-11 Route: IM, l 21:44: ONCE, Dosing Weight 104.659, kg, (DEPO-PROV ERA), Start date: 12/31/18 16:44:00 CDT, Stop date: 12/31/18 16:44:00 CDT Medroxyprog 2019-0 No 200 mg, Mem oria esterone 7-11 Route: IM, l 21:44: ONCE, [place] 00 Dosing Weight 104.659, kg, (DEPO-PROV ERA), Start date: 12/31/18 16:44:00 CDT, Stop date: 12/31/18 16:44:00 CDT Medroxyprog 2019-0 No 200 mg, Mem oria esterone 7-11 Route: IM, l 21:44: ONCE, [place] 00 Dosing Weight 104.659, kg, (DEPO-PROV ERA), Start date: 12/31/18 16:44:00 CDT, Stop date: 12/31/18 16:44:00 CDT Medroxyprog 2019-0 No 200 mg, Mem oria esterone 7-11 Route: IM, l 21:44: ONCE, [place] 00 Dosing Weight 104.659, kg, (DEPO-PROV ERA), Start date: 12/31/18 16:44:00 CDT, Stop date: 12/31/18 16:44:00 CDT Medroxyprog 2019-0 No 200 mg, Mem oria esterone 7-11 Route: IM, l 21:44: ONCE, [place] 00 Dosing Weight 104.659, kg, (DEPO-PROV ERA), Start date: 12/31/18 16:44:00 CDT, Stop date: 12/31/18 16:44:00 CDT Medroxyprog 2019-0 No 200 mg, Mem oria esterone 7-11 Route: IM, l 21:44: ONCE, [place] 00 Dosing Weight 104.659, kg, (DEPO-PROV ERA), Start date: 12/31/18 16:44:00 CDT, Stop date: 12/31/18 16:44:00 CDT Medroxyprog 2019-0 No 150 mg, Mem oria esterone 7-11 Route: IM, l 21:39: Drug form: [place] 00 SUSP, ONCE, Dosing Weight 104.659, kg, Start date: 12/31/18 16:39:00 CDT, Stop date: 12/31/18 16:39:00 CDT Medroxyprog 2019-0 No 150 mg, Mem oria esterone 7-11 Route: IM, l 21:39: Drug form: [place] 00 SUSP, ONCE, Dosing Weight 104.659, kg, Start date: 12/31/18 16:39:00 CDT, Stop date: 12/31/18 16:39:00 CDT Medroxyprog 2019-0 No 150 mg, Mem oria esterone 7-11 Route: IM, l 21:39: Drug form: [place] 00 SUSP, ONCE, Dosing Weight 104.659, kg, Start date: 12/31/18 16:39:00 CDT, Stop date: 12/31/18 16:39:00 CDT Medroxyprog 2019-0 No 150 mg, Mem oria esterone 7-11 Route: IM, l 21:39: Drug form: [place] 00 SUSP, ONCE, Dosing Weight 104.659, kg, Start date: 12/31/18 16:39:00 CDT, Stop date: 12/31/18 16:39:00 CDT Medroxyprog 2019-0 No 150 mg, Mem oria esterone 7-11 Route: IM, l 21:39: Drug form: [place] 00 SUSP, ONCE, Dosing Weight 104.659, kg, Start date: 12/31/18 16:39:00 CDT, Stop date: 12/31/18 16:39:00 CDT Medroxyprog 2019-0 No 150 mg, Mem oria esterone 7-11 Route: IM, l 21:39: Drug form: [place] 00 SUSP, ONCE, Dosing Weight 104.659, kg, Start date: 12/31/18 16:39:00 CDT, Stop date: 12/31/18 16:39:00 CDT Medroxyprog 2019-0 No 150 mg, Mem oria esterone 7-11 Route: IM, l 21:39: Drug form: [place] 00 SUSP, ONCE, Dosing Weight 104.659, kg, Start date: 12/31/18 16:39:00 CDT, Stop date: 12/31/18 16:39:00 CDT lisinopril 2019-0 Yes [id number] TAKE ONE [facility] (PRINIVIL,Z 5-21 (1) st ESTRIL) 10 00:00: TABLET(S) Ho spita mg tablet 00 BY MOUTH l DAILY. lisinopril 2019-0 Yes [id number] TAKE ONE [facility] (PRINIVIL,Z 5-21 (1) st ESTRIL) 10 00:00: TABLET(S) Ho spita mg tablet 00 BY MOUTH l DAILY. lisinopril 2019-0 Yes [id number] TAKE ONE [facility] (PRINIVIL,Z 5-21 (1) st ESTRIL) 10 00:00: TABLET(S) Ho spita mg tablet 00 BY MOUTH l DAILY. lisinopril 2019-0 Yes [id number] TAKE ONE [facility] (PRINIVIL,Z 5-21 (1) st ESTRIL) 10 00:00: TABLET(S) Ho spita mg tablet 00 BY MOUTH l DAILY. lisinopril 2019-0 Yes [id number] TAKE ONE [facility] (PRINIVIL,Z 5-21 (1) st ESTRIL) 10 00:00: TABLET(S) Ho spita mg tablet 00 BY MOUTH l DAILY. lisinopril 2019-0 Yes [id number] TAKE ONE [facility] (PRINIVIL,Z 5-21 (1) st ESTRIL) 10 00:00: TABLET(S) Ho spita mg tablet 00 BY MOUTH l DAILY. [facility] 2019-0 No 200 mg, Mem oria a 10-22 Route: IM, l 21:49: Drug form: [place] 00 SUSP, ONCE, Dosing Weight 104.545, kg, Start date: 10/22/18 16:49:00 CDT, Stop date: 10/22/18 16:49:00 CDT [facility] 2019-0 No 200 mg, Mem oria a 10-22 Route: IM, l 21:49: Drug form: [place] 00 SUSP, ONCE, Dosing Weight 104.545, kg, Start date: 10/22/18 16:49:00 CDT, Stop date: 10/22/18 16:49:00 CDT [facility] 2019-0 No 200 mg, Mem oria a 10-22 Route: IM, l 21:49: Drug form: [place] 00 SUSP, ONCE, Dosing Weight 104.545, kg, Start date: 10/22/18 16:49:00 CDT, Stop date: 10/22/18 16:49:00 CDT [facility] 2019-0 No 200 mg, Mem oria a 10-22 Route: IM, l 21:49: Drug form: [place] 00 SUSP, ONCE, Dosing Weight 104.545, kg, Start date: 10/22/18 16:49:00 CDT, Stop date: 10/22/18 16:49:00 CDT [facility] 2019-0 No 200 mg, Mem oria a 10-22 Route: IM, l 21:49: Drug form: [place] 00 SUSP, ONCE, Dosing Weight 104.545, kg, Start date: 10/22/18 16:49:00 CDT, Stop date: 10/22/18 16:49:00 CDT [facility] 2019-0 No 200 mg, Mem oria a 10-22 Route: IM, l 21:49: Drug form: [place] 00 SUSP, ONCE, Dosing Weight 104.545, kg, Start date: 10/22/18 16:49:00 CDT, Stop date: 10/22/18 16:49:00 CDT [facility] 2019-0 No 200 mg, Mem oria a 10-22 Route: IM, l 21:49: Drug form: [place] 00 SUSP, ONCE, Dosing Weight 104.545, kg, Start date: 10/22/18 16:49:00 CDT, Stop date: 10/22/18 16:49:00 CDT [facility] 2019-0 No 200 mg, Mem oria a 2-20 Route: IM, l 22:07: Drug form: [place] 00 SUSP, ONCE, Dosing Weight 98.182, kg, Start date: 08/12/18 16:07:00 APPOINTMENT MANAGER, Stop date: 08/12/18 16:07:00 APPOINTMENT MANAGER [facility] 2019-0 No 200 mg, Mem oria a 2-20 Route: IM, l 22:07: Drug form: [place] 00 SUSP, ONCE, Dosing Weight 98.182, kg, Start date: 08/12/18 16:07:00 APPOINTMENT MANAGER, Stop date: 08/12/18 16:07:00 APPOINTMENT MANAGER [facility] 2019-0 No 200 mg, Mem oria a 2-20 Route: IM, l 22:07: Drug form: [place] 00 SUSP, ONCE, Dosing Weight 98.182, kg, Start date: 08/12/18 16:07:00 APPOINTMENT MANAGER, Stop date: 08/12/18 16:07:00 APPOINTMENT MANAGER [facility] 2019-0 No 200 mg, Mem oria a 2-20 Route: IM, l 22:07: Drug form: [place] 00 SUSP, ONCE, Dosing Weight 98.182, kg, Start date: 08/12/18 16:07:00 APPOINTMENT MANAGER, Stop date: 08/12/18 16:07:00 APPOINTMENT MANAGER [facility] 2019-0 No 200 mg, Mem oria a 2-20 Route: IM, l 22:07: Drug form: [place] 00 SUSP, ONCE, Dosing Weight 98.182, kg, Start date: 08/12/18 16:07:00 APPOINTMENT MANAGER, Stop date: 08/12/18 16:07:00 APPOINTMENT MANAGER [facility] 2019-0 No 200 mg, Mem oria a 2-20 Route: IM, l 22:07: Drug form: [place] 00 SUSP, ONCE, Dosing Weight 98.182, kg, Start date: 08/12/18 16:07:00 APPOINTMENT MANAGER, Stop date: 08/12/18 16:07:00 APPOINTMENT MANAGER [facility] 2019-0 No 200 mg, Mem oria a 2-20 Route: IM, l 22:07: Drug form: [place] 00 SUSP, ONCE, Dosing Weight 98.182, kg, Start date: 08/12/18 16:07:00 APPOINTMENT MANAGER, Stop date: 08/12/18 16:07:00 APPOINTMENT MANAGER empaglifloz 2019-0 Yes 10 mg = 1 M emoria in 10 MG 2-20 tab, PO, l Oral Tablet 21:52: QAM, 0 Herm wes[facility] [Jardiance] 00 Refill(s) empaglifloz 2019-0 Yes 10 mg = 1 M emoria in 10 MG 2-20 tab, PO, l Oral Tablet 21:52: QAM, 0 Herm w[facility] [Jardiance] 00 Refill(s) empaglifloz 2019-0 Yes 10 mg = 1 M emoria in 10 MG 2-20 tab, PO, l Oral Tablet 21:52: QAM, 0 Herm w[facility] [Jardiance] 00 Refill(s) empaglifloz 2019-0 Yes 10 mg = 1 M emoria in 10 MG 2-20 tab, PO, l Oral Tablet 21:52: QAM, 0 Herm w[facility] [Jardiance] 00 Refill(s) empaglifloz 2019-0 Yes 10 mg = 1 M emoria in 10 MG 2-20 tab, PO, l Oral Tablet 21:52: QAM, 0 Herm wes[place] [Jardiance] 00 Refill(s) empaglifloz 2019-0 Yes 10 mg = 1 M emoria in 10 MG 2-20 tab, PO, l Oral Tablet 21:52: QAM, 0 [facility] [Jardiance] 00 Refill(s) empaglifloz 2019-0 Yes 10 mg = 1 M emoria in 10 MG 2-20 tab, PO, l Oral Tablet 21:52: QAM, 0 Herm w[facility] [Jardiance] 00 Refill(s) [facility] 2018- No 200 mg, Mem oria a 2-12 Route: IM, l 22:24: Drug form: [place] 00 SUSP, ONCE, Dosing Weight 96.364, kg, Start date: 06/03/18 16:24:00 APPOINTMENT MANAGER, Stop date: 06/03/18 16:24:00 APPOINTMENT MANAGER [facility] 2018- No 200 mg, Mem oria a 2-12 Route: IM, l 22:24: Drug form: [place] 00 SUSP, ONCE, Dosing Weight 96.364, kg, Start date: 06/03/18 16:24:00 APPOINTMENT MANAGER, Stop date: 06/03/18 16:24:00 APPOINTMENT MANAGER [facility] 2018- No 200 mg, Mem oria a 2-12 Route: IM, l 22:24: Drug form: [place] 00 SUSP, ONCE, Dosing Weight 96.364, kg, Start date: 06/03/18 16:24:00 APPOINTMENT MANAGER, Stop date: 06/03/18 16:24:00 APPOINTMENT MANAGER [facility] 2018-1 No 200 mg, Mem oria a 2-12 Route: IM, l 22:24: Drug form: [place] 00 SUSP, ONCE, Dosing Weight 96.364, kg, Start date: 06/03/18 16:24:00 APPOINTMENT MANAGER, Stop date: 06/03/18 16:24:00 APPOINTMENT MANAGER [facility] 2017-1 No 200 mg, Mem oria a 2-12 Route: IM, l 22:24: Drug form: [place] 00 SUSP, ONCE, Dosing Weight 96.364, kg, Start date: 06/03/18 16:24:00 APPOINTMENT MANAGER, Stop date: 06/03/18 16:24:00 APPOINTMENT MANAGER [facility] 2017-1 No 200 mg, Mem oria a 2-12 Route: IM, l 22:24: Drug form: [place] 00 SUSP, ONCE, Dosing Weight 96.364, kg, Start date: 06/03/18 16:24:00 APPOINTMENT MANAGER, Stop date: 06/03/18 16:24:00 APPOINTMENT MANAGER [facility] 2017-06 No 200 mg, Mem oria a 2-12 Route: IM, l 22:24: Drug form: [place] 00 SUSP, ONCE, Dosing Weight 96.364, kg, Start date: 06/03/18 16:24:00 APPOINTMENT MANAGER, Stop date: 06/03/18 16:24:00 APPOINTMENT MANAGER Metformin 2017-06 Yes 1 tab, PO, Me moria hydrochlori 2-12 BID l de 1000 MG 22:02: [place] sitagliptin 50 MG Oral Tablet [[place] ] Metformin 2017-06 Yes 1 tab, PO, Me moria hydrochlori 2-12 BID l de 1000 MG 22:02: [place] sitagliptin 50 MG Oral Tablet [[place] ] Metformin 2017-06 Yes 1 tab, PO, Me moria hydrochlori 2-12 BID l de 1000 MG 22:02: [place] sitagliptin 50 MG Oral Tablet [[place] ] Metformin 2017-06 Yes 1 tab, PO, Me moria hydrochlori 2-12 BID l de 1000 MG 22:02: [place] sitagliptin 50 MG Oral Tablet [[place] ] Metformin 2017-06 Yes 1 tab, PO, Me moria hydrochlori 2-12 BID l de 1000 MG 22:02: [place] sitagliptin 50 MG Oral Tablet [[place] ] Metformin 2017-06 Yes 1 tab, PO, Me moria hydrochlori 2-12 BID l de 1000 MG 22:02: [place] sitagliptin 50 MG Oral Tablet [[place] ] Metformin 2017-06 Yes 1 tab, PO, Me moria hydrochlori 2-12 BID l de 1000 MG 22:02: [place] sitagliptin 50 MG Oral Tablet [[place] ] [facility] 2017-06 No 200 mg, Mem oria a 0-04 Route: IM, l 22:13: Drug form: [place] 00 SUSP, ONCE, Dosing Weight 103.182, kg, Start date: 03/26/18 17:13:00 CDT, Stop date: 03/26/18 17:13:00 CDT [facility] 2017-06 No 200 mg, Mem oria a 0-04 Route: IM, l 22:13: Drug form: [place] 00 SUSP, ONCE, Dosing Weight 103.182, kg, Start date: 03/26/18 17:13:00 CDT, Stop date: 03/26/18 17:13:00 CDT [facility] 2018- No 200 mg, Mem oria a 0-04 Route: IM, l 22:13: Drug form: [place] 00 SUSP, ONCE, Dosing Weight 103.182, kg, Start date: 03/26/18 17:13:00 CDT, Stop date: 03/26/18 17:13:00 CDT [facility] 2018- No 200 mg, Mem oria a 0-04 Route: IM, l 22:13: Drug form: [place] 00 SUSP, ONCE, Dosing Weight 103.182, kg, Start date: 03/26/18 17:13:00 CDT, Stop date: 03/26/18 17:13:00 CDT [facility] 2018- No 200 mg, Mem oria a 0-04 Route: IM, l 22:13: Drug form: [place] 00 SUSP, ONCE, Dosing Weight 103.182, kg, Start date: 03/26/18 17:13:00 CDT, Stop date: 03/26/18 17:13:00 CDT [facility] 2018-1 No 200 mg, Mem oria a 0-04 Route: IM, l 22:13: Drug form: [place] 00 SUSP, ONCE, Dosing Weight 103.182, kg, Start date: 03/26/18 17:13:00 CDT, Stop date: 03/26/18 17:13:00 CDT [facility] 2018- No 200 mg, Mem oria a 0-04 Route: IM, l 22:13: Drug form: [place] 00 SUSP, ONCE, Dosing Weight 103.182, kg, Start date: 03/26/18 17:13:00 CDT, Stop date: 03/26/18 17:13:00 CDT Nitrofurant 2018-0 No 100 mg = 1 Memoria oin 100 MG 7-30 cap, PO, l Oral 21:57: BID, X 7 [place] Capsule 00 day, # 14 [Macrobid] cap, 0 Refill(s), Pharmacy: [facility] [place] Nitrofuran No 100 mg = 1 Memoria oin 100 MG 7-30 cap, PO, l Oral 21:57: BID, X 7 [place] Capsule 00 day, # 14 [Macrobid] cap, 0 Refill(s), Pharmacy: [facility] Pharmacy [facility] No 100 mg = 1 Memoria oin 100 MG 7-30 cap, PO, l Oral 21:57: BID, X 7 [place] Capsule 00 day, # 14 [Macrobid] cap, 0 Refill(s), Pharmacy: [facility] Pharmacy [facility] No 100 mg = 1 Memoria oin 100 MG 7-30 cap, PO, l Oral 21:57: BID, X 7 [place] Capsule 00 day, # 14 [Macrobid] cap, 0 Refill(s), Pharmacy: [facility] Pharmacy [facility] No 100 mg = 1 Memoria oin 100 MG 7-30 cap, PO, l Oral 21:57: BID, X 7 [place] Capsule 00 day, # 14 [Macrobid] cap, 0 Refill(s), Pharmacy: [facility] Pharmacy [facility] No 100 mg = 1 Memoria oin 100 MG 7-30 cap, PO, l Oral 21:57: BID, X 7 [place] Capsule 00 day, # 14 [Macrobid] cap, 0 Refill(s), Pharm[facility]: [facility] Memoria oin 100 MG 7-30 cap, PO, l Oral 21:57: BID, X 7 [place] Capsule 00 day, # 14 [Macrobid] cap, 0 Refill(s), Pharmacy: [facility] 2017-0 No 200 mg, Mem oria a 7-24 Route: IM, l 21:08: Drug form: Jose Antonio 00 SUSP, ONCE, Dosing Weight 107.727, kg, Start date: 01/13/18 16:08:00 CDT, Stop date: 01/13/18 16:08:00 CDT [facility] 2017-0 No 200 mg, Mem oria a 7-24 Route: IM, l 21:08: Drug form: [place] 00 SUSP, ONCE, Dosing Weight 107.727, kg, Start date: 01/13/18 16:08:00 CDT, Stop date: 01/13/18 16:08:00 CDT [facility] 2018-0 No 200 mg, Mem oria a 7-24 Route: IM, l 21:08: Drug form: [place] 00 SUSP, ONCE, Dosing Weight 107.727, kg, Start date: 01/13/18 16:08:00 CDT, Stop date: 01/13/18 16:08:00 CDT [facility] 2018-0 No 200 mg, Mem oria a 7-24 Route: IM, l 21:08: Drug form: [place] 00 SUSP, ONCE, Dosing Weight 107.727, kg, Start date: 01/13/18 16:08:00 CDT, Stop date: 01/13/18 16:08:00 CDT [facility] 2018-0 No 200 mg, Mem oria a 7-24 Route: IM, l 21:08: Drug form: [place] 00 SUSP, ONCE, Dosing Weight 107.727, kg, Start date: 01/13/18 16:08:00 CDT, Stop date: 01/13/18 16:08:00 CDT [facility] 2018-0 No 200 mg, Mem oria a 7-24 Route: IM, l 21:08: Drug form: Jose Antonio 00 SUSP, ONCE, Dosing Weight 107.727, kg, Start date: 01/13/18 16:08:00 CDT, Stop date: 01/13/18 16:08:00 CDT [facility] 2018-0 No 200 mg, Mem oria a 7-24 Route: IM, l 21:08: Drug form: Jose Antonio 00 SUSP, ONCE, Dosing Weight 107.727, kg, Start date: 01/13/18 16:08:00 CDT, Stop date: 01/13/18 16:08:00 CDT Sertraline 2018-0 No 50 mg = 1 Me moria 50 MG Oral 7-24 tab, PO, l Tablet 21:07: Daily, # Jose Antonio [Zoloft] 00 30 tab, 12 Refill(s), Pharmacy: [facility] Sertraline No 50 mg = 1 Me moria 50 MG Oral 7-24 tab, PO, l Tablet 21:07: Daily, # [place] [Zoloft] 00 30 tab, 12 Refill(s), Pharmacy: [facility] Sertraline No 50 mg = 1 Me moria 50 MG Oral 7-24 tab, PO, l Tablet 21:07: Daily, # [place] [Zoloft] 00 30 tab, 12 Refill(s), Pharmacy: [facility] Sertraline No 50 mg = 1 Me moria 50 MG Oral 7-24 tab, PO, l Tablet 21:07: Daily, # [place] [Zoloft] 00 30 tab, 12 Refill(s), Pharmacy: [facility] Sertraline No 50 mg = 1 Me moria 50 MG Oral 7-24 tab, PO, l Tablet 21:07: Daily, # Jose Antonio [Zoloft] 00 30 tab, 12 Refill(s), Pharmacy: [facility] Sertraline No 50 mg = 1 Me moria 50 MG Oral 7-24 tab, PO, l Tablet 21:07: Daily, # Jose Antonio [Zoloft] 00 30 tab, 12 Refill(s), Pharmacy: [facility] Sertraline No 50 mg = 1 Me moria 50 MG Oral 7-24 tab, PO, l Tablet 21:07: Daily, # Jose Antonio [Zoloft] 00 30 tab, 12 Refill(s), Pharmacy: [facility] lisinopril Yes 10 mg = 1 Me moria 10 mg oral 7-24 tab, PO, l tablet 20:48: Daily [place] nortriptyli 0 Yes 50 mg = 1 M emoria ne 50 mg 7-24 cap, PO, l oral 20:48: Daily Jose Antonio lisinopril Yes 10 mg = 1 Me moria 10 mg oral 7-24 tab, PO, l tablet 20:48: Daily Jose Antonio nortriptyli 0 Yes 50 mg = 1 M emoria ne 50 mg 7-24 cap, PO, l oral 20:48: Daily [place] capsule lisinopril 2018-0 Yes 10 mg = 1 Me moria 10 mg oral 7-24 tab, PO, l tablet 20:48: Daily nortriptyli 2018-0 Yes 50 mg = 1 M emoria ne 50 mg 7-24 cap, PO, l oral 20:48: Daily capsule lisinopril 2018-0 Yes 10 mg = 1 Me moria 10 mg oral 7-24 tab, PO, l tablet 20:48: Daily nortriptyli 2018-0 Yes 50 mg = 1 M emoria ne 50 mg 7-24 cap, PO, l oral 20:48: Daily capsule lisinopril 2018-0 Yes 10 mg = 1 Me moria 10 mg oral 7-24 tab, PO, l tablet 20:48: Daily nortriptyli 2018-0 Yes 50 mg = 1 M emoria ne 50 mg 7-24 cap, PO, l oral 20:48: Daily capsule lisinopril 2018-0 Yes 10 mg = 1 Me moria 10 mg oral 7-24 tab, PO, l tablet 20:48: Daily nortriptyli 2018-0 Yes 50 mg = 1 M emoria ne 50 mg 7-24 cap, PO, l oral 20:48: Daily capsule lisinopril 2018-0 Yes 10 mg = 1 Me moria 10 mg oral 7-24 tab, PO, l tablet 20:48: Daily nortriptyli 2018-0 Yes 50 mg = 1 M emoria ne 50 mg 7-24 cap, PO, l oral 20:48: Daily capsule [facility] 2018-0 No 200 mg, Mem oria a 5-16 Route: IM, l 20:35: Drug form: SUSP, ONCE, Dosing Weight 109.091, kg, Start date: 11/05/17 15:35:00 CDT, Stop date: 11/05/17 15:35:00 CDT [facility] 2018-0 No 200 mg, Mem oria a 5-16 Route: IM, l 20:35: Drug form: SUSP, ONCE, Dosing Weight 109.091, kg, Start date: 11/05/17 15:35:00 CDT, Stop date: 11/05/17 15:35:00 CDT [facility] 2018-0 No 200 mg, Mem oria a 5-16 Route: IM, l 20:35: Drug form: [place] 00 SUSP, ONCE, Dosing Weight 109.091, kg, Start date: 11/05/17 15:35:00 CDT, Stop date: 11/05/17 15:35:00 CDT [facility] 2018-0 No 200 mg, Mem oria a 5-16 Route: IM, l 20:35: Drug form: [place] 00 SUSP, ONCE, Dosing Weight 109.091, kg, Start date: 11/05/17 15:35:00 CDT, Stop date: 11/05/17 15:35:00 CDT [facility] 2018-0 No 200 mg, Mem oria a 5-16 Route: IM, l 20:35: Drug form: Jose [place] 00 SUSP, ONCE, Dosing Weight 109.091, kg, Start date: 11/05/17 15:35:00 CDT, Stop date: 11/05/17 15:35:00 CDT [facility] 2018-0 No 200 mg, Mem oria a 5-16 Route: IM, l 20:35: Drug form: Jose Antonio 00 SUSP, ONCE, Dosing Weight 109.091, kg, Start date: 11/05/17 15:35:00 CDT, Stop date: 11/05/17 15:35:00 CDT [facility] 2018-0 No 200 mg, Mem oria a 5-16 Route: IM, l 20:35: Drug form: [place] 00 SUSP, ONCE, Dosing Weight 109.091, kg, Start date: 11/05/17 15:35:00 CDT, Stop date: 11/05/17 15:35:00 CDT [facility] 2018-0 No 200 mg, Mem oria a - Route: IM, l 21:02: Drug form: Jose Antonio 00 SUSP, ONCE, Dosing Weight 107.273, kg, Start date: 08/18/17 15:02:00 APPOINTMENT MANAGER, Stop date: 08/18/17 15:02:00 APPOINTMENT MANAGER [facility] 2018-0 No 200 mg, Mem oria a 2- Route: IM, l 21:02: Drug form: [place] 00 SUSP, ONCE, Dosing Weight 107.273, kg, Start date: 08/18/17 15:02:00 APPOINTMENT MANAGER, Stop date: 08/18/17 15:02:00 APPOINTMENT MANAGER [facility] 2018-0 No 200 mg, Mem oria a - Route: IM, l 21:02: Drug form: Jose Antonio 00 SUSP, ONCE, Dosing Weight 107.273, kg, Start date: 08/18/17 15:02:00 APPOINTMENT MANAGER, Stop date: 08/18/17 15:02:00 APPOINTMENT MANAGER [facility] 2018-0 No 200 mg, Mem oria a - Route: IM, l 21:02: Drug form: [place] 00 SUSP, ONCE, Dosing Weight 107.273, kg, Start date: 08/18/17 15:02:00 APPOINTMENT MANAGER, Stop date: 08/18/17 15:02:00 APPOINTMENT MANAGER [facility] 2018-0 No 200 mg, Mem oria a - Route: IM, l 21:02: Drug form: [place] 00 SUSP, ONCE, Dosing Weight 107.273, kg, Start date: 08/18/17 15:02:00 APPOINTMENT MANAGER, Stop date: 08/18/17 15:02:00 APPOINTMENT MANAGER [facility] 2018-0 No 200 mg, Mem oria a - Route: IM, l 21:02: Drug form: [place] 00 SUSP, ONCE, Dosing Weight 107.273, kg, Start date: 08/18/17 15:02:00 APPOINTMENT MANAGER, Stop date: 08/18/17 15:02:00 APPOINTMENT MANAGER [facility] 2018-0 No 200 mg, Mem oria a - Route: IM, l 21:02: Drug form: [place] 00 SUSP, ONCE, Dosing Weight 107.273, kg, Start date: 08/18/17 15:02:00 APPOINTMENT MANAGER, Stop date: 08/18/17 15:02:00 APPOINTMENT MANAGER Naproxen 2018-0 Yes Daily Memoria 2-26 l 20:54: Jose Antonio Naproxen 2018-0 Yes Daily Memoria 2-26 l 20:54: Jose Antonio Naproxen 2018-0 Yes Daily Memoria 2-26 l 20:54: Jose Antonio 00 Naproxen 2018-0 Yes Daily Memoria 2-26 l 20:54: Naproxen 2018-0 Yes Daily Memoria 2-26 l 20:54: Naproxen 2018-0 Yes Daily Memoria 2-26 l 20:54: Naproxen 2018-0 Yes Daily Memoria 2-26 l 20:54: propranolol 2018-0 Yes 60 mg = 1 M emoria 60 mg oral 2-26 tab, PO, l tablet 20:49: Daily propranolol 2017-0 Yes 60 mg = 1 M emoria 60 mg oral 2-26 tab, PO, l tablet 20:49: Daily propranolol 2017-0 Yes 60 mg = 1 M emoria 60 mg oral 2-26 tab, PO, l tablet 20:49: Daily propranolol 2017-0 Yes 60 mg = 1 M emoria 60 mg oral 2-26 tab, PO, l tablet 20:49: Daily propranolol 2017-0 Yes 60 mg = 1 M emoria 60 mg oral 2-26 tab, PO, l tablet 20:49: Daily propranolol 2017-0 Yes 60 mg = 1 M emoria 60 mg oral 2-26 tab, PO, l tablet 20:49: Daily propranolol 2017-0 Yes 60 mg = 1 M emoria 60 mg oral 2-26 tab, PO, l tablet 20:49: Daily naproxen 2017-0 Yes 500mg Q.5D Take 500 Meth denisse (NAPROSYN) 2-[address] 500 MG 14:42: [facility] tablet 02 (two) l times a day with meals. propranolol Yes 60mg QD Take 60 mg [facility] (INDERAL) 2-[address] 60 MG 14:41: daily. Hospita tablet 31 l SUMAtriptan 0 Yes 100mg Take 100 M [facility] (IMITREX) 2-[address] 50 MG 14:41: mouth once Hospit a tablet 31 as needed l for migraine. May repeat in 2 hours if unresolved . Do not exceed 200 mg in 24 hours. metFORMIN 0 Yes 1000mg QD Take 1,000 [facility] (GLUCOPHAGE 2-[address] ) 1,000 mg 14:39: mouth Hospit a tablet 08 daily with l breakfast. naproxen 2018-0 Yes 500mg Q.5D Take 500 Meth denisse (NAPROSYN) 2-[address] 500 MG 08:42: [facility] tablet 02 (two) l times a day with meals. naproxen 2018-0 Yes 500mg Q.5D Take 500 Meth denisse (NAPROSYN) 2-[address] 500 MG 08:42: [facility] tablet 02 (two) l times a day with meals. naproxen 2018-0 Yes 500mg Q.5D Take 500 Meth denisse (NAPROSYN) 2-[address] 500 MG 08:42: [facility] tablet 02 (two) l times a day with meals. naproxen 2018-0 Yes 500mg Q.5D Take 500 Meth denisse (NAPROSYN) 2-[address] 500 MG 08:42: [facility] tablet 02 (two) l times a day with meals. naproxen 2018-0 Yes 500mg Q.5D Take 500 Meth denisse (NAPROSYN) 2-[address] 500 MG 08:42: [facility] tablet 02 (two) l times a day with meals. propranolol 2018-0 Yes 60mg QD Take 60 mg [facility] (INDERAL) 2-[address] 60 MG 08:41: daily. Hospita tablet 31 l SUMAtriptan 2018-0 Yes 100mg Take 100 M [facility] (IMITREX) 2-[address] 50 MG 08:41: mouth once Hospit a tablet 31 as needed l for migraine. May repeat in 2 hours if unresolved . Do not exceed 200 mg in 24 hours. propranolol 2018-0 Yes 60mg QD Take 60 mg [facility] (INDERAL) 2-[address] 60 MG 08:41: daily. Hospita tablet 31 l SUMAtriptan 2018-0 Yes 100mg Take 100 M [facility] (IMITREX) 2-[address] 50 MG 08:41: mouth once Hospit a tablet 31 as needed l for migraine. May repeat in 2 hours if unresolved . Do not exceed 200 mg in 24 hours. propranolol 2018-0 Yes 60mg QD Take 60 mg [facility] (INDERAL) 2-[address] 60 MG 08:41: daily. Hospita tablet 31 l SUMAtriptan 2018-0 Yes 100mg Take 100 M [facility] (IMITREX) 2-[address] 50 MG 08:41: mouth once Hospit a tablet 31 as needed l for migraine. May repeat in 2 hours if unresolved . Do not exceed 200 mg in 24 hours. propranolol 2018-0 Yes 60mg QD Take 60 mg [facility] (INDERAL) 2-[address] 60 MG 08:41: daily. Hospita tablet 31 l SUMAtriptan 2018-0 Yes 100mg Take 100 M [facility] (IMITREX) 2-[address] 50 MG 08:41: mouth once Hospit a tablet 31 as needed l for migraine. May repeat in 2 hours if unresolved . Do not exceed 200 mg in 24 hours. propranolol 2018-0 Yes 60mg QD Take 60 mg [facility] (INDERAL) 2-[address] 60 MG 08:41: daily. Hospita tablet 31 l SUMAtriptan 2018-0 Yes 100mg Take 100 M [facility] (IMITREX) 2-[address] 50 MG 08:41: mouth once Hospit a tablet 31 as needed l for migraine. May repeat in 2 hours if unresolved . Do not exceed 200 mg in 24 hours. metFORMIN 2018-0 Yes 1000mg QD Take 1,000 [facility] (GLUCOPHAGE 2-[address] ) 1,000 mg 08:39: mouth Hospit a tablet 08 daily with l breakfast. metFORMIN 2018-0 Yes 1000mg QD Take 1,000 [facility] (GLUCOPHAGE 2-[address] ) 1,000 mg 08:39: mouth Hospit a tablet 08 daily with l breakfast. metFORMIN 2018-0 Yes 1000mg QD Take 1,000 [facility] (GLUCOPHAGE 2-[address] ) 1,000 mg 08:39: mouth Hospit a tablet 08 daily with l breakfast. metFORMIN 2018-0 Yes 1000mg QD Take 1,000 [facility] (GLUCOPHAGE 2-[address] ) 1,000 mg 08:39: mouth Hospit a tablet 08 daily with l breakfast. metFORMIN 2018-0 Yes 1000mg QD Take 1,000 [facility] (GLUCOPHAGE 2-[address] ) 1,000 mg 08:39: mouth Hospit a tablet 08 daily with l breakfast. levofloxaci 2018-0 Yes 500 mg = 1 Memoria n 500 mg - tab, PO, l oral tablet 15:15: [facility], # 10 tab, 0 Refill(s), Pharmacy: [facility] See Memoria Phosphate 2 1-02 Instructio l MG/ML / 15:15: ns, PRN Jose Antonio Guaifenesin 00 cough, 20 MG/ML 5-10 mL PO Oral Q6H prn Solution cough, # [Cheratussi 240 mL, 1 n] Refill(s) levofloxaci Yes 500 mg = 1 Memoria n 500 mg 1-02 tab, PO, l oral tablet 15:15: Daily, X [place] 10 day, # 10 tab, 0 Refill(s), Pharmacy: [facility] See Memoria Phosphate 2 -02 Instructio l MG/ML / 15:15: ns, PRN Jose Antonio Guaifenesin 00 cough, 20 MG/ML 5-10 mL PO Oral Q6H prn Solution cough, # [Cheratussi 240 mL, 1 n] Refill(s) levofloxaci Yes 500 mg = 1 Memoria n 500 mg 1-02 tab, PO, l oral tablet 15:15: Daily, X [place] day, # 10 tab, 0 Refill(s), Pharmacy: [facility] See Memoria Phosphate 2 -02 Instructio l MG/ML / 15:15: ns, PRN [place] Guaifenesin 00 cough, 20 MG/ML 5-10 mL PO Oral Q6H prn Solution cough, # [Cheratussi 240 mL, 1 n] Refill(s) levofloxaci Yes 500 mg = 1 Memoria n 500 mg 1-02 tab, PO, l oral tablet 15:15: Daily, X [place] 10 day, # 10 tab, 0 Refill(s), Pharmacy: [facility] Yes See Memoria Phosphate 2 1-02 Instructio l MG/ML / 15:15: ns, PRN [place] Guaifenesin 00 cough, 20 MG/ML 5-10 mL PO Oral Q6H prn Solution cough, # [Cheratussi 240 mL, 1 n] Refill(s) levofloxaci Yes 500 mg = 1 Memoria n 500 mg 1-02 tab, PO, l oral tablet 15:15: Daily, X [place] 10 day, # 10 tab, 0 Refill(s), Pharmacy: [facility] Yes See Memoria Phosphate 2 -02 Instructio l MG/ML / 15:15: ns, PRN [place] Guaifenesin 00 cough, 20 MG/ML 5-10 mL PO Oral Q6H prn Solution cough, # [Cheratussi 240 mL, 1 n] Refill(s) levofloxaci Yes 500 mg = 1 Memoria n 500 mg 1-02 tab, PO, l oral tablet 15:15: Daily, X [place] 10 day, # 10 tab, 0 Refill(s), Pharmacy: [facility] Yes See Memoria Phosphate 2 -02 Instructio l MG/ML / 15:15: ns, PRN [place] Guaifenesin 00 cough, 20 MG/ML 5-10 mL PO Oral Q6H prn Solution cough, # [Cheratussi 240 mL, 1 n] Refill(s) levofloxaci Yes 500 mg = 1 Memoria n 500 mg 1-02 tab, PO, l oral tablet 15:15: Daily, X rmann 10 day, # 10 tab, 0 Refill(s), Pharmacy: [facility] Yes See Memoria Phosphate 2 -02 Instructio l MG/ML / 15:15: ns, PRN [place] Guaifenesin 00 cough, 20 MG/ML 5-10 mL PO Oral Q6H prn Solution cough, # [Cheratussi 240 mL, 1 n] Refill(s) [facility] 2017 No 200 mg, Mem oria a 2-18 Route: IM, l 22:23: Drug form: Jose Antonio 00 SUSP, ONCE, Dosing Weight 103.182, kg, Start date: 06/09/17 16:23:00 APPOINTMENT MANAGER, Stop date: 06/09/17 16:23:00 APPOINTMENT MANAGER [facility] 2017 No 200 mg, Mem oria a 2-18 Route: IM, l 22:23: Drug form: [place] 00 SUSP, ONCE, Dosing Weight 103.182, kg, Start date: 06/09/17 16:23:00 APPOINTMENT MANAGER, Stop date: 06/09/17 16:23:00 APPOINTMENT MANAGER [facility] 2017-1 No 200 mg, Mem oria a 2-18 Route: IM, l 22:23: Drug form: [place] 00 SUSP, ONCE, Dosing Weight 103.182, kg, Start date: 06/09/17 16:23:00 APPOINTMENT MANAGER, Stop date: 06/09/17 16:23:00 APPOINTMENT MANAGER [facility] 2017-1 No 200 mg, Mem oria a 2-18 Route: IM, l 22:23: Drug form: [place] 00 SUSP, ONCE, Dosing Weight 103.182, kg, Start date: 06/09/17 16:23:00 APPOINTMENT MANAGER, Stop date: 06/09/17 16:23:00 APPOINTMENT MANAGER [facility] 2017-1 No 200 mg, Mem oria a 2-18 Route: IM, l 22:23: Drug form: [place] 00 SUSP, ONCE, Dosing Weight 103.182, kg, Start date: 06/09/17 16:23:00 APPOINTMENT MANAGER, Stop date: 06/09/17 16:23:00 APPOINTMENT MANAGER [facility] 2017-1 No 200 mg, Mem oria a 2-18 Route: IM, l 22:23: Drug form: [place] 00 SUSP, ONCE, Dosing Weight 103.182, kg, Start date: 06/09/17 16:23:00 APPOINTMENT MANAGER, Stop date: 06/09/17 16:23:00 APPOINTMENT MANAGER [facility] 2017-1 No 200 mg, Mem oria a 2-18 Route: IM, l 22:23: Drug form: [place] 00 SUSP, ONCE, Dosing Weight 103.182, kg, Start date: 06/09/17 16:23:00 APPOINTMENT MANAGER, Stop date: 06/09/17 16:23:00 APPOINTMENT MANAGER ketOROLAC 2017-1 No 4 days Memor ia 15 mg/mL 0-29 l injectable 01:21: MEDICATION H ermann solution 00 WASTE Product Size: 30 mg Product Wasted: __15_ mg ketOROLAC 2017-1 No 4 days Memor ia 15 mg/mL 0-29 l injectable 01:21: MEDICATION H ermann solution 00 WASTE Product Size: 30 mg Product Wasted: __15_ mg ketOROLAC 2017- No 4 days Memor ia 15 mg/mL 0-29 l injectable 01:21: MEDICATION H ermann solution 00 WASTE Product Size: 30 mg Product Wasted: __15_ mg ketOROLAC 2016- No 4 days Memor ia 15 mg/mL 0-29 l injectable 01:21: MEDICATION H ermann solution 00 WASTE Product Size: 30 mg Product Wasted: __15_ mg ketOROLAC 2016- No 4 days Memor ia 15 mg/mL 0-29 l injectable 01:21: MEDICATION H ermann solution 00 WASTE Product Size: 30 mg Product Wasted: __15_ mg ketOROLAC 2016- No 4 days Memor ia 15 mg/mL 0-29 l injectable 01:21: MEDICATION H ermann solution 00 WASTE Product Size: 30 mg Product Wasted: __15_ mg ketOROLAC 2016- No 4 days Memor ia 15 mg/mL 0-29 l injectable 01:21: MEDICATION H ermann solution 00 WASTE Product Size: 30 mg Product Wasted: __15_ mg dexamethaso 2016- No 10 mg, 2.5 Memoria ne 0-29 mL, Route: l 01:00: IVP, Drug [place] 00 form: INJ, ONCE, Dosing Weight 106.364, kg, Priority: STAT, Start date: 04/19/17 20:00:00 CDT, Stop date: 04/19/17 20:00:00 CDT dexamethaso 2017- No 10 mg, 2.5 Memoria ne 0-29 mL, Route: l 01:00: IVP, Drug [place] 00 form: INJ, ONCE, Dosing Weight 106.364, kg, Priority: STAT, Start date: 04/19/17 20:00:00 CDT, Stop date: 04/19/17 20:00:00 CDT dexamethaso 2017-1 No 10 mg, 2.5 Memoria ne 0-29 mL, Route: l 01:00: IVP, Drug Jose Antonio 00 form: INJ, ONCE, Dosing Weight 106.364, kg, Priority: STAT, Start date: 04/19/17 20:00:00 CDT, Stop date: 04/19/17 20:00:00 CDT dexamethaso 2016- No 10 mg, 2.5 Memoria ne 0-29 mL, Route: l 01:00: IVP, Drug [place] 00 form: INJ, ONCE, Dosing Weight 106.364, kg, Priority: STAT, Start date: 04/19/17 20:00:00 CDT, Stop date: 04/19/17 20:00:00 CDT dexamethaso 2016-06 No 10 mg, 2.5 Memoria ne 0-29 mL, Route: l 01:00: IVP, Drug Jose Antonio form: INJ, ONCE, Dosing Weight 106.364, kg, Priority: STAT, Start date: 04/19/17 20:00:00 CDT, Stop date: 04/19/17 20:00:00 CDT dexamethaso 2016-06 No 10 mg, 2.5 Memoria ne 0-29 mL, Route: l 01:00: IVP, Drug Jose Antonio form: INJ, ONCE, Dosing Weight 106.364, kg, Priority: STAT, Start date: 04/19/17 20:00:00 CDT, Stop date: 04/19/17 20:00:00 CDT dexamethaso 2016-06 No 10 mg, 2.5 Memoria ne 0-29 mL, Route: l 01:00: IVP, Drug [place] form: INJ, ONCE, Dosing Weight 106.364, kg, Priority: STAT, Start date: 04/19/17 20:00:00 CDT, Stop date: 04/19/17 20:00:00 CDT acetaminoph 2016-06 No Notes: Do M emoria en 0-29 not exceed l 00:36: 4 gm/day. Jose Antonio 00 (Same as: Tylenol) dexamethaso 2016-06 No Notes: Akash madhu ne 0-29 dexamethas l 00:36: one 10 [place] 00 mg/1 ml VL INJ PF MEDICATION WASTE Product Size: 10 mg Product Wasted: ___ mg Reglan 2016-06 No Notes: Memoria 0-29 (Same as: l 00:36: Reglan) Jose Antonio 00 acetaminoph 2016-06 No Notes: Do M emoria en 0-29 not exceed l 00:36: 4 gm/day. Jose Antonio (Same as: Tylenol) dexamethaso 2016-06 No Notes: Akash madhu ne 0-29 dexamethas l 00:36: one 10 [place] 00 mg/1 ml VL INJ PF MEDICATION WASTE Product Size: 10 mg Product Wasted: ___ mg Reglan 2016-06 No Notes: Memoria 0-29 (Same as: l 00:36: Reglan) Jose Antonio acetaminoph 2016-06 No Notes: Do M emoria en 0-29 not exceed l 00:36: 4 gm/day. [place] (Same as: Tylenol) dexamethaso 2016-06 No Notes: Akash madhu ne 0-29 dexamethas l 00:36: one 10 Jose Antonio 00 mg/1 ml VL INJ PF MEDICATION WASTE Product Size: 10 mg Product Wasted: ___ mg Reglan 2016-06 No Notes: Memoria 0-29 (Same as: l 00:36: Reglan) [place] acetaminoph 2016-06 No Notes: Do M emoria en 0-29 not exceed l 00:36: 4 gm/day. [place] 00 (Same as: Tylenol) dexamethaso 2016-06 No Notes: Akash madhu ne 0-29 dexamethas l 00:36: one 10 Jose Antonio 00 mg/1 ml VL INJ PF MEDICATION WASTE Product Size: 10 mg Product Wasted: ___ mg Reglan 2016-06 No Notes: Memoria 0-29 (Same as: l 00:36: Reglan) Jose Antonio acetaminoph 2016-06 No Notes: Do M emoria en 0-29 not exceed l 00:36: 4 gm/day. Jose Antonio (Same as: Tylenol) dexamethaso 2016-06 No Notes: Akash madhu ne 0-29 dexamethas l 00:36: one 10 Jose Antonio 00 mg/1 ml VL INJ PF MEDICATION WASTE Product Size: 10 mg Product Wasted: ___ mg Reglan 2016-06 No Notes: Memoria 0-29 (Same as: l 00:36: Reglan) Jose Antonio acetaminoph 2016-06 No Notes: Do M emoria en 0-29 not exceed l 00:36: 4 gm/day. [place] 00 (Same as: Tylenol) dexamethaso 2016-06 No Notes: Akash madhu ne 0-29 dexamethas l 00:36: one 10 Jose Antonio 00 mg/1 ml VL INJ PF MEDICATION WASTE Product Size: 10 mg Product Wasted: ___ mg Reglan 2016-06 No Notes: Memoria 0-29 (Same as: l 00:36: Reglan) Jose Antonio 00 acetaminoph 2016-06 No Notes: Do M emoria en 0-29 not exceed l 00:36: 4 gm/day. [place] 00 (Same as: Tylenol) dexamethaso 2016-06 No Notes: Akash madhu ne 0-29 dexamethas l 00:36: one 10 Jose Antonio 00 mg/1 ml VL INJ PF MEDICATION WASTE Product Size: 10 mg Product Wasted: ___ mg Reglan 2016-06 No Notes: Memoria 0-29 (Same as: l 00:36: Reglan) [place] 00 diphenhydrA 2016-06 No Notes: Akash madhu MINE 0-29 (Same as: l 00:35: Benadryl) Jose Antonio 00 NS (Bolus) 2016-06 No 1,000 mL, Me moria IV 0- 1,000 l 00:35: ml/hr, Infuse Over: 1 hr, Route: IV, 1,000, Drug form: INJ, ONCE, Priority: STAT, Dosing Weight 106.364 kg, Start date: 04/19/17 19:35:00 CDT, Duration: 1 doses or times, Stop date: 04/19/17 19:35:00 CDT diphenhydrA 2016-06 No Notes: Akash madhu MINE 0-29 (Same as: l 00:35: Benadryl) Jose Antonio 00 NS (Bolus) 2016-06 No 1,000 mL, Me moria IV 0-29 1,000 l 00:35: ml/hr, [place] 00 Infuse Over: 1 hr, Route: IV, 1,000, Drug form: INJ, ONCE, Priority: STAT, Dosing Weight 106.364 kg, Start date: 04/19/17 19:35:00 CDT, Duration: 1 doses or times, Stop date: 04/19/17 19:35:00 CDT diphenhydrA 2016-06 No Notes: Akash amdhu MINE 0-29 (Same as: l 00:35: Benadryl) Jose Antonio NS ([facility]) 2016-06 No 1,000 mL, Me moria IV 0-29 1,000 l 00:35: ml/hr, [place] 00 Infuse Over: 1 hr, Route: IV, 1,000, Drug form: INJ, ONCE, Priority: STAT, Dosing Weight 106.364 kg, Start date: 04/19/17 19:35:00 CDT, Duration: 1 doses or times, Stop date: 04/19/17 19:35:00 CDT diphenhydrA 2016-06 No Notes: Akash madhu MINE 0-29 (Same as: l 00:35: Benadryl) Jose Antonio 00 NS ([facility]) 2016-06 No 1,000 mL, Me moria IV 0-29 1,000 l 00:35: ml/hr, [place] 00 Infuse Over: 1 hr, Route: IV, 1,000, Drug form: INJ, ONCE, Priority: STAT, Dosing Weight 106.364 kg, Start date: 04/19/17 19:35:00 CDT, Duration: 1 doses or times, Stop date: 04/19/17 19:35:00 CDT diphenhydrA 2016-06 No Notes: Akash madhu MINE 0-29 (Same as: l 00:35: Benadryl) [place] 00 NS ([facility]) 2016-06 No 1,000 mL, Me moria IV 0-29 1,000 l 00:35: ml/hr, [place] 00 Infuse Over: 1 hr, Route: IV, 1,000, Drug form: INJ, ONCE, Priority: STAT, Dosing Weight 106.364 kg, Start date: 04/19/17 19:35:00 CDT, Duration: 1 doses or times, Stop date: 04/19/17 19:35:00 CDT diphenhydrA 2016-06 No Notes: Akash madhu MINE 0-29 (Same as: l 00:35: Benadryl) [place] NS (Bolus) 2016-06 No 1,000 mL, Me moria IV 0-29 1,000 l 00:35: ml/hr, [place] 00 Infuse Over: 1 hr, Route: IV, 1,000, Drug form: INJ, ONCE, Priority: STAT, Dosing Weight 106.364 kg, Start date: 04/19/17 19:35:00 CDT, Duration: 1 doses or times, Stop date: 04/19/17 19:35:00 CDT diphenhydrA 2016-06 No Notes: Akash madhu MINE 0-29 (Same as: l 00:35: Benadryl) [place] 00 NS (Bolus) 2016-06 No 1,000 mL, Me moria IV 0-29 1,000 l 00:35: ml/hr, [place] 00 Infuse Over: 1 hr, Route: IV, 1,000, Drug form: INJ, ONCE, Priority: STAT, Dosing Weight 106.364 kg, Start date: 04/19/17 19:35:00 CDT, Duration: 1 doses or times, Stop date: 04/19/17 19:35:00 CDT ketOROLAC 2016-06 No 4 days Memor ia 15 mg/mL 0-21 l injectable 02:37: MEDICATION H ermann solution 00 WASTE Product Size: 30 mg Product Wasted: _15 mg ketOROLAC 2016-06 No 4 days Memor ia 15 mg/mL 0-21 l injectable 02:37: MEDICATION H ermann solution 00 WASTE Product Size: 30 mg Product Wasted: _15 mg ketOROLAC 2016-06 No 4 days Memor ia 15 mg/mL 0-21 l injectable 02:37: MEDICATION H ermann solution 00 WASTE Product Size: 30 mg Product Wasted: _15 mg ketOROLAC 2016-06 No 4 days Memor ia 15 mg/mL 0-21 l injectable 02:37: MEDICATION H ermann solution 00 WASTE Product Size: 30 mg Product Wasted: _15 mg ketOROLAC 2016-06 No 4 days Memor ia 15 mg/mL 0-21 l injectable 02:37: MEDICATION H ermann solution 00 WASTE Product Size: 30 mg Product Wasted: _15 mg ketOROLAC 2016-06 No 4 days Memor ia 15 mg/mL 0-21 l injectable 02:37: MEDICATION H ermann solution 00 WASTE Product Size: 30 mg Product Wasted: _15 mg ketOROLAC 2016- No 4 days Memor ia 15 mg/mL l injectable 02:37: MEDICATION H ermann solution 00 WASTE Product Size: 30 mg Product Wasted: _15 mg NS (Bolus) 2016-06 No 1,000 mL, Me moria IV 0-21 1,000 l 01:22: ml/hr, [place] 00 Infuse Over: 1 hr, Route: IV, ONCE, Priority: STAT, Dosing Weight 105.773 kg, Start date: 04/11/17 20:22:00 CDT, Duration: 1 doses or times, Stop date: 04/11/17 20:22:00 CDT [facility] 2016-06 No 10 mg, Memoria 0-21 Route: l 01:22: IVP, Drug Jose Antonio 00 form: INJ, ONCE, Dosing Weight 105.773, kg, Priority: STAT, Start date: 04/11/17 20:22:00 CDT, Stop date: 04/11/17 20:22:00 CDT NS (Bolus) 2016-06 No 1,000 mL, Me moria IV 0-21 1,000 l 01:22: ml/hr, [place] 00 Infuse Over: 1 hr, Route: IV, ONCE, Priority: STAT, Dosing Weight 105.773 kg, Start date: 04/11/17 20:22:00 CDT, Duration: 1 doses or times, Stop date: 04/11/17 20:22:00 CDT [facility] 2016-06 No 10 mg, Memoria 0-21 Route: l 01:22: IVP, Drug Jose Antonio 00 form: INJ, ONCE, Dosing Weight 105.773, kg, Priority: STAT, Start date: 04/11/17 20:22:00 CDT, Stop date: 04/11/17 20:22:00 CDT NS (Bolus) 2016-06 No 1,000 mL, Me moria IV 0-21 1,000 l 01:22: ml/hr, [place] 00 Infuse Over: 1 hr, Route: IV, ONCE, Priority: STAT, Dosing Weight 105.773 kg, Start date: 04/11/17 20:22:00 CDT, Duration: 1 doses or times, Stop date: 04/11/17 20:22:00 CDT [facility] 2016-06 No 10 mg, Memoria 0-21 Route: l 01:22: IVP, Drug Jose Antonio 00 form: INJ, ONCE, Dosing Weight 105.773, kg, Priority: STAT, Start date: 04/11/17 20:22:00 CDT, Stop date: 04/11/17 20:22:00 CDT NS (Bolus) 2016-06 No 1,000 mL, Me moria IV 0-21 1,000 l 01:22: ml/hr, [place] 00 Infuse Over: 1 hr, Route: IV, ONCE, Priority: STAT, Dosing Weight 105.773 kg, Start date: 04/11/17 20:22:00 CDT, Duration: 1 doses or times, Stop date: 04/11/17 20:22:00 CDT [facility] 2016-06 No 10 mg, Memoria 0-21 Route: l 01:22: IVP, Drug [place] 00 form: INJ, ONCE, Dosing Weight 105.773, kg, Priority: STAT, Start date: 04/11/17 20:22:00 CDT, Stop date: 04/11/17 20:22:00 CDT NS (Bolus) 2016-06 No 1,000 mL, Me moria IV 0-21 1,000 l 01:22: ml/hr, Jose Antonio 00 Infuse Over: 1 hr, Route: IV, ONCE, Priority: STAT, Dosing Weight 105.773 kg, Start date: 04/11/17 20:22:00 CDT, Duration: 1 doses or times, Stop date: 04/11/17 20:22:00 CDT [facility] 2016-06 No 10 mg, Memoria 0-21 Route: l 01:22: IVP, Drug Jose Antonio 00 form: INJ, ONCE, Dosing Weight 105.773, kg, Priority: STAT, Start date: 04/11/17 20:22:00 CDT, Stop date: 04/11/17 20:22:00 CDT NS (Bolus) 2016-06 No 1,000 mL, Me moria IV 0-21 1,000 l 01:22: ml/hr, Jose Antonio 00 Infuse Over: 1 hr, Route: IV, ONCE, Priority: STAT, Dosing Weight 105.773 kg, Start date: 04/11/17 20:22:00 CDT, Duration: 1 doses or times, Stop date: 04/11/17:22:00 CDT Reglan 2016-06 No 10 mg, Memoria 0-21 Route: l 01:22: IVP, Drug form: INJ, ONCE, Dosing Weight 105.773, kg, Priority: STAT, Start date: 04/11/17 20:22:00 CDT, Stop date: 04/11/17 20:22:00 CDT NS (Bolus) 2016-06 No 1,000 mL, Me moria IV 1,000 l 01:22: ml/hr, Infuse Over: 1 hr, Route: IV, ONCE, Priority: STAT, Dosing Weight 105.773 kg, Start date: 04/11/17 20:22:00 CDT, Duration: 1 doses or times, Stop date: 04/11/17 20:22:00 CDT Reglan 2016-06 No 10 mg, Memoria 0-21 Route: l 01:22: IVP, Drug form: INJ, ONCE, Dosing Weight 105.773, kg, Priority: STAT, Start date: 04/11/17 20:22:00 CDT, Stop date: 04/11/17 20:22:00 CDT Dexamethaso 2016-06 No 10 mg, Akash madhu ne 0-21 Route: l 01:21: IVP, ONCE, Dosing Weight 105.773, kg, Priority: STAT, Start date: 04/11/17 20:21:00 CDT, Stop date: 04/11/17 20:21:00 CDT Diphenhydra 2016-06 No 25 mg, Akash madhu mine 0-21 Route: l 01:21: IVP, ONCE, Dosing Weight 105.773, kg, Priority: STAT, Start date: 04/11/17 20:21:00 CDT, Stop date: 04/11/17 20:21:00 CDT Acetaminoph 2016-06 No 975 mg, Mem oria en 021 Route: PO, l 01:21: Drug form: [place] 00 TAB, ONCE, Dosing Weight 105.773, kg, Priority: STAT, Start date: 04/11/17 20:21:00 CDT, Stop date: 04/11/17 20:21:00 CDT Dexamethaso 2016- No 10 mg, Akash madhu ne 0-21 Route: l 01:21: IVP, ONCE, Dosing Weight 105.773, kg, Priority: STAT, Start date: 04/11/17 20:21:00 CDT, Stop date: 04/11/17 20:21:00 CDT Diphenhydra 2016-06 No 25 mg, Akash madhu mine 0-21 Route: l 01:21: IVP, ONCE, Dosing Weight 105.773, kg, Priority: STAT, Start date: 04/11/17 20:21:00 CDT, Stop date: 04/11/17 20:21:00 CDT Acetaminoph 2016-06 No 975 mg, Mem oria en 0-21 Route: PO, l 01:21: Drug form: [place] 00 TAB, ONCE, Dosing Weight 105.773, kg, Priority: STAT, Start date: 04/11/17 20:21:00 CDT, Stop date: 04/11/17 20:21:00 CDT Dexamethaso 2016- No 10 mg, Akash madhu ne 0-21 Route: l 01:21: IVP, ONCE, Dosing Weight 105.773, kg, Priority: STAT, Start date: 04/11/17 20:21:00 CDT, Stop date: 04/11/17 20:21:00 CDT Diphenhydra 2016-06 No 25 mg, Akash madhu mine 0-21 Route: l 01:21: IVP, ONCE, Dosing Weight 105.773, kg, Priority: STAT, Start date: 04/11/17 20:21:00 CDT, Stop date: 04/11/17 20:21:00 CDT Acetaminoph 2016-06 No 975 mg, Mem oria en 0-21 Route: PO, l 01:21: Drug form: [place] 00 TAB, ONCE, Dosing Weight 105.773, kg, Priority: STAT, Start date: 04/11/17 20:21:00 CDT, Stop date: 04/11/17 20:21:00 CDT Dexamethaso 2016- No 10 mg, Akash madhu ne 0-21 Route: l 01:21: IVP, ONCE, Dosing Weight 105.773, kg, Priority: STAT, Start date: 04/11/17 20:21:00 CDT, Stop date: 04/11/17 20:21:00 CDT Diphenhydra 2016- No 25 mg, Akash madhu mine 0-21 Route: l 01:21: IVP, ONCE, Dosing Weight 105.773, kg, Priority: STAT, Start date: 04/11/17 20:21:00 CDT, Stop date: 04/11/17 20:21:00 CDT Acetaminoph 2016-06 No 975 mg, Mem oria en 0-21 Route: PO, l 01:21: Drug form: [place] 00 TAB, ONCE, Dosing Weight 105.773, kg, Priority: STAT, Start date: 04/11/17 20:21:00 CDT, Stop date: 04/11/17 20:21:00 CDT Dexamethaso 2016- No 10 mg, Akash madhu ne 0-21 Route: l 01:21: IVP, ONCE, Dosing Weight 105.773, kg, Priority: STAT, Start date: 04/11/17 20:21:00 CDT, Stop date: 04/11/17 20:21:00 CDT Diphenhydra 2016- No 25 mg, Akash madhu mine 0-21 Route: l 01:21: IVP, ONCE, Dosing Weight 105.773, kg, Priority: STAT, Start date: 04/11/17 20:21:00 CDT, Stop date: 04/11/17 20:21:00 CDT Acetaminoph 2016-06 No 975 mg, Mem oria en 0-21 Route: PO, l 01:21: Drug form: Jose Antnoio 00 TAB, ONCE, Dosing Weight 105.773, kg, Priority: STAT, Start date: 04/11/17 20:21:00 CDT, Stop date: 04/11/17 20:21:00 CDT Dexamethaso 2016- No 10 mg, Akash madhu ne 0-21 Route: l 01:21: IVP, ONCE, [place] Dosing Weight 105.773, kg, Priority: STAT, Start date: 04/11/17 20:21:00 CDT, Stop date: 04/11/17 20:21:00 CDT Diphenhydra 2016-06 No 25 mg, Akash madhu mine 021 Route: l 01:21: IVP, ONCE, Dosing Weight 105.773, kg, Priority: STAT, Start date: 04/11/17 20:21:00 CDT, Stop date: 04/11/17 20:21:00 CDT Acetaminoph 2016-06 No 975 mg, Mem oria en 21 Route: PO, l 01:21: Drug form: Jose Antonio 00 TAB, ONCE, Dosing Weight 105.773, kg, Priority: STAT, Start date: 04/11/17 20:21:00 CDT, Stop date: 04/11/17 20:21:00 CDT Dexamethaso 2016-06 No 10 mg, Akash madhu ne 0 Route: l 01:21: IVP, ONCE, Dosing Weight 105.773, kg, Priority: STAT, Start date: 04/11/17 20:21:00 CDT, Stop date: 04/11/17 20:21:00 CDT Diphenhydra 2016-06 No 25 mg, Akash madhu mine Route: l 01:21: IVP, ONCE, Dosing Weight 105.773, kg, Priority: STAT, Start date: 04/11/17 20:21:00 CDT, Stop date: 04/11/17 20:21:00 CDT Acetaminoph 2016-06 No 975 mg, Mem oria en 21 Route: PO, l 01:21: Drug form: [place] 00 TAB, ONCE, Dosing Weight 105.773, kg, Priority: STAT, Start date: 04/11/17 20:21:00 CDT, Stop date: 04/11/17 20:21:00 CDT Ondansetron 2015-06 Yes 4 mg = 1 Me moria 4 MG 0-18 tab, PO, l Disintegrat 20:44: BID, PRN He rmann ing Tablet 00 Nausea and [Zofran] Vomiting, Dissolve tab under tongue, X 5 day, # 10 tab, 0 Refill(s) Ranitidine 2015-06 Yes 150 mg = 1 M emoria 150 MG Oral 0-18 tab, PO, l Tablet 20:44: BID, # 28 Nimesh n [Zantac] 00 tab, 0 Refill(s) Ondansetron 2015-06 Yes 4 mg = 1 Me moria 4 MG 0-18 tab, PO, l Disintegrat 20:44: BID, PRN He r[place] ing Tablet 00 Nausea and [Zofran] Vomiting, Dissolve tab under tongue, X 5 day, # 10 tab, 0 Refill(s) Ranitidine 2015-06 Yes 150 mg = 1 M emoria 150 MG Oral 0-18 tab, PO, l Tablet 20:44: BID, # 28 Nimesh n [Zantac] 00 tab, 0 Refill(s) Ondansetron 2015-06 Yes 4 mg = 1 Me moria 4 MG 0-18 tab, PO, l Disintegrat 20:44: BID, PRN He r[place] ing Tablet 00 Nausea and [Zofran] Vomiting, Dissolve tab under tongue, X 5 day, # 10 tab, 0 Refill(s) Ranitidine 2015-06 Yes 150 mg = 1 M emoria 150 MG Oral 0-18 tab, PO, l Tablet 20:44: BID, # 28 Nimesh n [Zantac] 00 tab, 0 Refill(s) Ondansetron 2015-06 Yes 4 mg = 1 Me moria 4 MG 0-18 tab, PO, l Disintegrat 20:44: BID, PRN He rmann ing Tablet 00 Nausea and [Zofran] Vomiting, Dissolve tab under tongue, X 5 day, # 10 tab, 0 Refill(s) Ranitidine 2015-06 Yes 150 mg = 1 M emoria 150 MG Oral 0-18 tab, PO, l Tablet 20:44: BID, # 28 Nimesh n [Zantac] 00 tab, 0 Refill(s) Ondansetron 2015-06 Yes 4 mg = 1 Me moria 4 MG 0-18 tab, PO, l Disintegrat 20:44: BID, PRN He rmann ing Tablet 00 Nausea and [Zofran] Vomiting, Dissolve tab under tongue, X 5 day, # 10 tab, 0 Refill(s) Ranitidine 2015-06 Yes 150 mg = 1 M emoria 150 MG Oral 0-18 tab, PO, l Tablet 20:44: BID, # 28 Nimesh n [Zantac] 00 tab, 0 Refill(s) Ondansetron 2015-06 Yes 4 mg = 1 Me moria 4 MG 0-18 tab, PO, l Disintegrat 20:44: BID, PRN He r[place] ing Tablet 00 Nausea and [Zofran] Vomiting, Dissolve tab under tongue, X 5 day, # 10 tab, 0 Refill(s) Ranitidine 2015-06 Yes 150 mg = 1 M emoria 150 MG Oral 0-18 tab, PO, l Tablet 20:44: BID, # 28 Nimesh n [Zantac] 00 tab, 0 Refill(s) Ondansetron 2015-06 Yes 4 mg = 1 Me moria 4 MG 0-18 tab, PO, l Disintegrat 20:44: BID, PRN He rmann ing Tablet 00 Nausea and [Zofran] Vomiting, Dissolve tab under tongue, X 5 day, # 10 tab, 0 Refill(s) Ranitidine 2015-06 Yes 150 mg = 1 M emoria 150 MG Oral 0-18 tab, PO, l Tablet 20:44: BID, # 28 Nimesh n [Zantac] 00 tab, 0 Refill(s) Cephalexin 2015-06 Yes 500 mg = 1 M emoria 500 MG Oral 0-18 cap, PO, l Capsule 20:43: BID, X 7 Nimesh n [Keflex] 00 day, # 14 cap, 0 Refill(s) fluconazole 2015-06 Yes 150 mg = 1 Memoria 150 mg oral 0-18 tab, PO, l tablet 20:43: ONCE, # 1 Nimesh n 00 tab, 0 Refill(s) Cephalexin 2015-06 Yes 500 mg = 1 M emoria 500 MG Oral 0-18 cap, PO, l Capsule 20:43: BID, X 7 Nimesh n [Keflex] 00 day, # 14 cap, 0 Refill(s) fluconazole 2015-06 Yes 150 mg = 1 Memoria 150 mg oral 0-18 tab, PO, l tablet 20:43: ONCE, # 1 Nimesh n 00 tab, 0 Refill(s) Cephalexin 2015-06 Yes 500 mg = 1 M emoria 500 MG Oral 0-18 cap, PO, l Capsule 20:43: BID, X 7 Nimesh n [Keflex] 00 day, # 14 cap, 0 Refill(s) fluconazole 2015-06 Yes 150 mg = 1 Memoria 150 mg oral 0-18 tab, PO, l tablet 20:43: ONCE, # 1 Nimesh n 00 tab, 0 Refill(s) Cephalexin 2015-06 Yes 500 mg = 1 M emoria 500 MG Oral 0-18 cap, PO, l Capsule 20:43: BID, X 7 Nimesh n [Keflex] 00 day, # 14 cap, 0 Refill(s) fluconazole 2015-06 Yes 150 mg = 1 Memoria 150 mg oral 0-18 tab, PO, l tablet 20:43: ONCE, # 1 Nimesh n 00 tab, 0 Refill(s) Cephalexin 2015-06 Yes 500 mg = 1 M emoria 500 MG Oral 0-18 cap, PO, l Capsule 20:43: BID, X 7 Nimesh n [Keflex] 00 day, # 14 cap, 0 Refill(s) fluconazole 2015-06 Yes 150 mg = 1 Memoria 150 mg oral 0-18 tab, PO, l tablet 20:43: ONCE, # 1 Nimesh n 00 tab, 0 Refill(s) Cephalexin 2015-06 Yes 500 mg = 1 M emoria 500 MG Oral 0-18 cap, PO, l Capsule 20:43: BID, X 7 Nimesh n [Keflex] 00 day, # 14 cap, 0 Refill(s) fluconazole 2015-06 Yes 150 mg = 1 Memoria 150 mg oral 0-18 tab, PO, l tablet 20:43: ONCE, # 1 Nimesh n 00 tab, 0 Refill(s) Cephalexin 2015-06 Yes 500 mg = 1 M emoria 500 MG Oral 0-18 cap, PO, l Capsule 20:43: BID, X 7 Nimesh n [Keflex] 00 day, # 14 cap, 0 Refill(s) fluconazole 2015-06 Yes 150 mg = 1 Memoria 150 mg oral 0-18 tab, PO, l tablet 20:43: ONCE, # 1 Nimesh n 00 tab, 0 Refill(s) Zofran 2015-06 No 4 mg, Memoria 0-18 Route: l 19:59: IVP, Drug Jose Antonio 00 form: INJ, ONCE, Dosing Weight 113.636, kg, Priority: STAT, Start date: 04/09/16 14:59:00 CDT, Stop date: 04/09/16 14:59:00 CDT [facility] 2015-06 No 4 mg, Memoria 0-18 Route: l 19:59: IVP, Drug Jose Antonio 00 form: INJ, ONCE, Dosing Weight 113.636, kg, Priority: STAT, Start date: 04/09/16 14:59:00 CDT, Stop date: 04/09/16 14:59:00 CDT [facility] 2015-06 No 4 mg, Memoria 0-18 Route: l 19:59: IVP, Drug [place] 00 form: INJ, ONCE, Dosing Weight 113.636, kg, Priority: STAT, Start date: 04/09/16 14:59:00 CDT, Stop date: 04/09/16 14:59:00 [facility] No 4 mg, Memoria 0-18 Route: l 19:59: IVP, Drug Jose Antonio 00 form: INJ, ONCE, Dosing Weight 113.636, kg, Priority: STAT, Start date: 04/09/16 14:59:00 CDT, Stop date: 04/09/16 14:59:00 CDT Zoan 2015-06 No 4 mg, Memoria 0-18 Route: l 19:59: IVP, Drug Jose Antonio 00 form: INJ, ONCE, Dosing Weight 113.636, kg, Priority: STAT, Start date: 04/09/16 14:59:00 CDT, Stop date: 04/09/16 14:59:00 CDT Zoan 2015-06 No 4 mg, Memoria 0-18 Route: l 19:59: IVP, Drug [place] 00 form: INJ, ONCE, Dosing Weight 113.636, kg, Priority: STAT, Start date: 04/09/16 14:59:00 CDT, Stop date: 04/09/16 14:59:00 CDT Zoan 2015-06 No 4 mg, Memoria 0-18 Route: l 19:59: IVP, Drug Jose Antonio 00 form: INJ, ONCE, Dosing Weight 113.636, kg, Priority: STAT, Start date: 04/09/16 14:59:00 CDT, Stop date: 04/09/16 14:59:00 CDT Sodium 2015- No 1,000 mL, Memori a Chloride 0-18 1,000 l 0.154 17:23: ml/hr, [place] MEQ/ML 00 Infuse Injectable Over: 1 Solution hr, Route: IV, 1,000, Drug form: INJ, ONCE, Priority: STAT, Dosing Weight 113.636 kg, Start date: 04/09/16 12:23:00 CDT, Duration: 1 doses or times, Stop date: 04/09/16 12:23:00 CDT Sodium 2015- No 1,000 mL, Memori a Chloride 0-18 1,000 l 0.154 17:23: ml/hr, Jose Antonio MEQ/ML 00 Infuse Injectable Over: 1 Solution hr, Route: IV, 1,000, Drug form: INJ, ONCE, Priority: STAT, Dosing Weight 113.636 kg, Start date: 04/09/16 12:23:00 CDT, Duration: 1 doses or times, Stop date: 04/09/16 12:23:00 CDT Sodium 2015- No 1,000 mL, Memori a Chloride 0-18 1,000 l 0.154 17:23: ml/hr, Jose Antonio MEQ/ML 00 Infuse Injectable Over: 1 Solution hr, Route: IV, 1,000, Drug form: INJ, ONCE, Priority: STAT, Dosing Weight 113.636 kg, Start date: 04/09/16 12:23:00 CDT, Duration: 1 doses or times, Stop date: 04/09/16 12:23:00 CDT Sodium 2015- No 1,000 mL, Memori a Chloride 0-18 1,000 l 0.154 17:23: ml/hr, [place] MEQ/ML 00 Infuse Injectable Over: 1 Solution hr, Route: IV, 1,000, Drug form: INJ, ONCE, Priority: STAT, Dosing Weight 113.636 kg, Start date: 04/09/16 12:23:00 CDT, Duration: 1 doses or times, Stop date: 04/09/16 12:23:00 CDT Sodium 2015- No 1,000 mL, Memori a Chloride 0-18 1,000 l 0.154 17:23: ml/hr, [place] MEQ/ML 00 Infuse Injectable Over: 1 Solution hr, Route: IV, 1,000, Drug form: INJ, ONCE, Priority: STAT, Dosing Weight 113.636 kg, Start date: 04/09/16 12:23:00 CDT, Duration: 1 doses or times, Stop date: 04/09/16 12:23:00 CDT Sodium 2015- No 1,000 mL, Memori a Chloride 0-18 1,000 l 0.154 17:23: ml/hr, Jose Antonio MEQ/ML 00 Infuse Injectable Over: 1 Solution hr, Route: IV, 1,000, Drug form: INJ, ONCE, Priority: STAT, Dosing Weight 113.636 kg, Start date: 04/09/16 12:23:00 CDT, Duration: 1 doses or times, Stop date: 04/09/16 12:23:00 CDT Sodium 2015-06 No 1,000 mL, Memori a Chloride 0-18 1,000 l 0.154 17:23: ml/hr, [place] MEQ/ML 00 Infuse Injectable Over: 1 Solution hr, Route: IV, 1,000, Drug form: INJ, ONCE, Priority: STAT, Dosing Weight 113.636 kg, Start date: 04/09/16 12:23:00 CDT, Duration: 1 doses or times, Stop date: 04/09/16 12:23:00 CDT Ondansetron 2015-06 No 4 mg, Memor ia 0-18 Route: l 15:41: IVP, ONCE, Dosing Weight 113.636, kg, Priority: STAT, Start date: 04/09/16 10:41:00 CDT, Stop date: 04/09/16 10:41:00 CDT Morphine 2015-06 No 4 mg, Memoria 0-18 Route: l 15:41: IVP, ONCE, Dosing Weight 113.636, kg, Priority: STAT, Start date: 04/09/16 10:41:00 CDT, Stop date: 04/09/16 10:41:00 CDT Sodium 2015-06 No 1,000 mL, Memori a Chloride 0-18 2,000 l 0.154 15:41: ml/hr, Jose Antonio MEQ/ML 00 Infuse Injectable Over: 30 Solution minutes, Route: IV, ONCE, Priority: STAT, Dosing Weight 113.636 kg, Start date: 04/09/16 10:41:00 CDT, Duration: 1 doses or times, Stop date: 04/09/16 10:41:00 CDT Saline 2015-06 No Notes: Memoria Flush 0.9% 0-18 (Same as: l 15:41: BD [place] 00 Posiflush) Ondansetron 2015-06 No 4 mg, Memor ia 0-18 Route: l 15:41: IVP, ONCE, Jose Antonio 00 Dosing Weight 113.636, kg, Priority: STAT, Start date: 04/09/16 10:41:00 CDT, Stop date: 04/09/16 10:41:00 CDT Morphine 2015-06 No 4 mg, Memoria 0-18 Route: l 15:41: IVP, ONCE, [place] 00 Dosing Weight 113.636, kg, Priority: STAT, Start date: 04/09/16 10:41:00 CDT, Stop date: 04/09/16 10:41:00 CDT Sodium 2015-06 No 1,000 mL, Memori a Chloride 0-18 2,000 l 0.154 15:41: ml/hr, [place] MEQ/ML 00 Infuse Injectable Over: 30 Solution minutes, Route: IV, ONCE, Priority: STAT, Dosing Weight 113.636 kg, Start date: 04/09/16 10:41:00 CDT, Duration: 1 doses or times, Stop date: 04/09/16 10:41:00 CDT Saline 2015-06 No Notes: Memoria Flush 0.9% 0-18 (Same as: l 15:41: BD [place] 00 Posiflush) Ondansetron 2015-06 No 4 mg, Memor ia 0-18 Route: l 15:41: IVP, ONCE, Jose Antonio Dosing Weight 113.636, kg, Priority: STAT, Start date: 04/09/16 10:41:00 CDT, Stop date: 04/09/16 10:41:00 CDT Morphine 2015-06 No 4 mg, Memoria 0-18 Route: l 15:41: IVP, ONCE, Jose Antonio 00 Dosing Weight 113.636, kg, Priority: STAT, Start date: 04/09/16 10:41:00 CDT, Stop date: 04/09/16 10:41:00 CDT Sodium 2015- No 1,000 mL, Memori a Chloride 0-18 2,000 l 0.154 15:41: ml/hr, [place] MEQ/ML 00 Infuse Injectable Over: 30 Solution minutes, Route: IV, ONCE, Priority: STAT, Dosing Weight 113.636 kg, Start date: 04/09/16 10:41:00 CDT, Duration: 1 doses or times, Stop date: 04/09/16 10:41:00 CDT Saline 2015-06 No Notes: Memoria Flush 0.9% 0-18 (Same as: l 15:41: BD Jose Antonio 00 Posiflush) Ondansetron 2015-06 No 4 mg, Memor ia 0-18 Route: l 15:41: IVP, ONCE, Dosing Weight 113.636, kg, Priority: STAT, Start date: 04/09/16 10:41:00 CDT, Stop date: 04/09/16 10:41:00 CDT Morphine 2015-06 No 4 mg, Memoria 0-18 Route: l 15:41: IVP, ONCE, Dosing Weight 113.636, kg, Priority: STAT, Start date: 04/09/16 10:41:00 CDT, Stop date: 04/09/16 10:41:00 CDT Sodium 2015- No 1,000 mL, Memori a Chloride 0-18 2,000 l 0.154 15:41: ml/hr, [place] MEQ/ML 00 Infuse Injectable Over: 30 Solution minutes, Route: IV, ONCE, Priority: STAT, Dosing Weight 113.636 kg, Start date: 04/09/16 10:41:00 CDT, Duration: 1 doses or times, Stop date: 04/09/16 10:41:00 CDT Saline 2015-06 No Notes: Memoria Flush 0.9% 0-18 (Same as: l 15:41: BD Jose Antonio 00 Posiflush) Ondansetron 2015-06 No 4 mg, Memor ia 0-18 Route: l 15:41: IVP, ONCE, Dosing Weight 113.636, kg, Priority: STAT, Start date: 04/09/16 10:41:00 CDT, Stop date: 04/09/16 10:41:00 CDT Morphine 2015-06 No 4 mg, Memoria 0-18 Route: l 15:41: IVP, ONCE, Jose Antonio 00 Dosing Weight 113.636, kg, Priority: STAT, Start date: 04/09/16 10:41:00 CDT, Stop date: 04/09/16 10:41:00 CDT Sodium 2015-06 No 1,000 mL, Memori a Chloride 0-18 2,000 l 0.154 15:41: ml/hr, [place] MEQ/ML 00 Infuse Injectable Over: 30 Solution minutes, Route: IV, ONCE, Priority: STAT, Dosing Weight 113.636 kg, Start date: 04/09/16 10:41:00 CDT, Duration: 1 doses or times, Stop date: 04/09/16 10:41:00 CDT Saline 2015-06 No Notes: Memoria Flush 0.9% 0-18 (Same as: l 15:41: BD Jose Antonio 00 Posiflush) Ondansetron 2015-06 No 4 mg, Memor ia 0-18 Route: l 15:41: IVP, ONCE, [place] 00 Dosing Weight 113.636, kg, Priority: STAT, Start date: 04/09/16 10:41:00 CDT, Stop date: 04/09/16 10:41:00 CDT Morphine 2015-06 No 4 mg, Memoria 0-18 Route: l 15:41: IVP, ONCE, Dosing Weight 113.636, kg, Priority: STAT, Start date: 04/09/16 10:41:00 CDT, Stop date: 04/09/16 10:41:00 CDT Sodium 2015-06 No 1,000 mL, Memori a Chloride 0-18 2,000 l 0.154 15:41: ml/hr, [place] MEQ/ML 00 Infuse Injectable Over: 30 Solution minutes, Route: IV, ONCE, Priority: STAT, Dosing Weight 113.636 kg, Start date: 04/09/16 10:41:00 CDT, Duration: 1 doses or times, Stop date: 04/09/16 10:41:00 CDT Saline 2015-06 No Notes: Memoria Flush 0.9% 0-18 (Same as: l 15:41: BD Jose Antonio 00 Posiflush) Ondansetron 2015-06 No 4 mg, Memor ia 0-18 Route: l 15:41: IVP, ONCE, [place] 00 Dosing Weight 113.636, kg, Priority: STAT, Start date: 04/09/16 10:41:00 CDT, Stop date: 04/09/16 10:41:00 CDT Morphine 2015-06 No 4 mg, Memoria 0-18 Route: l 15:41: IVP, ONCE, [place] 00 Dosing Weight 113.636, kg, Priority: STAT, Start date: 04/09/16 10:41:00 CDT, Stop date: 04/09/16 10:41:00 CDT Sodium 2015-06 No 1,000 mL, Memori a Chloride 0-18 2,000 l 0.154 15:41: ml/hr, [place] MEQ/ML 00 Infuse Injectable Over: 30 Solution minutes, Route: IV, ONCE, Priority: STAT, Dosing Weight 113.636 kg, Start date: 04/09/16 10:41:00 CDT, Duration: 1 doses or times, Stop date: 04/09/16 10:41:00 CDT Saline 2015-06 No Notes: Memoria Flush 0.9% 0-18 (Same as: l 15:41: BD Jose Antonio 00 Posiflush) doxycycline Yes 100 mg = 1 Memoria monohydrate 9-03 tab, PO, l 100 mg oral 03:59: Q12H, X 7 H ermann tablet 00 day, # 14 tab, 0 Refill(s) doxycycline Yes 100 mg = 1 Memoria monohydrate 9-03 tab, PO, l 100 mg oral 03:59: Q12H, X 7 H ermann tablet 00 day, # 14 tab, 0 Refill(s) doxycycline Yes 100 mg = 1 Memoria monohydrate 9-03 tab, PO, l 100 mg oral 03:59: Q12H, X 7 H ermann tablet 00 day, # 14 tab, 0 Refill(s) doxycycline Yes 100 mg = 1 Memoria monohydrate 9-03 tab, PO, l 100 mg oral 03:59: Q12H, X 7 H ermann tablet 00 day, # 14 tab, 0 Refill(s) doxycycline Yes 100 mg = 1 Memoria monohydrate 9-03 tab, PO, l 100 mg oral 03:59: Q12H, X 7 H ermann tablet 00 day, # 14 tab, 0 Refill(s) doxycycline Yes 100 mg = 1 Memoria monohydrate 9-03 tab, PO, l 100 mg oral 03:59: Q12H, X 7 H ermann tablet 00 day, # 14 tab, 0 Refill(s) doxycycline Yes 100 mg = 1 Memoria monohydrate 9-03 tab, PO, l 100 mg oral 03:59: Q12H, X 7 H ermann tablet 00 day, # 14 tab, 0 Refill(s) Omeprazole Yes 20 mg = 1 Me moria 20 MG 2-20 cap, PO, l Enteric 05:31: Daily, # Nimesh n Coated 00 30 cap, 0 Capsule Refill(s), [Prilosec] Pharmacy: [place] [id number] promethazin Yes 25 mg = 1 M emoria e 25 mg 2-20 tab, PO, l oral tablet 05:31: Q4H, PRN He r[place] 00 Nausea, X 3 day, # 18 tab, 0 Refill(s), Pharmacy: [facility] Omeprazole Yes 20 mg = 1 Me moria 20 MG 2-20 cap, PO, l Enteric 05:31: Daily, # Nimesh n Coated 00 30 cap, 0 Capsule Refill(s), [Prilosec] Pharmacy: [facility] promethazin Yes 25 mg = 1 M emoria e 25 mg 2-20 tab, PO, l oral tablet 05:31: Q4H, PRN [place] r[place] 00 Nausea, X 3 day, # 18 tab, 0 Refill(s), Pharmacy: [facility] Omeprazole Yes 20 mg = 1 Me moria 20 MG 2-20 cap, PO, l Enteric 05:31: Daily, # Nimesh n Coated 00 30 cap, 0 Capsule Refill(s), [Prilosec] Pharmacy: [facility] promethazin 2015- Yes 25 mg = 1 M emoria e 25 mg 2-20 tab, PO, l oral tablet 05:31: Q4H, PRN [place] 00 Nausea, X 3 day, # 18 tab, 0 Refill(s), Pharmacy: [facility] Omeprazole Yes 20 mg = 1 Me moria 20 MG 2-20 cap, PO, l Enteric 05:31: Daily, # Nimesh n Coated 00 30 cap, 0 Capsule Refill(s), [Prilosec] Pharmacy: [facility] promethazin 2015- Yes 25 mg = 1 M emoria e 25 mg 2-20 tab, PO, l oral tablet 05:31: Q4H, PRN [place] 00 Nausea, X 3 day, # 18 tab, 0 Refill(s), Pharmacy: [facility] Omeprazole Yes 20 mg = 1 Me moria 20 MG 2-20 cap, PO, l Enteric 05:31: Daily, # Nimesh n Coated 00 30 cap, 0 Capsule Refill(s), [Prilosec] Pharmacy: [facility] promethazin Yes 25 mg = 1 M emoria e 25 mg 2-20 tab, PO, l oral tablet 05:31: Q4H, PRN [place] 00 Nausea, X 3 day, # 18 tab, 0 Refill(s), Pharmacy: [facility] Omeprazole Yes 20 mg = 1 Me moria 20 MG 2-20 cap, PO, l Enteric 05:31: Daily, # Nimesh n Coated 00 30 cap, 0 Capsule Refill(s), [Prilosec] Pharmacy: [facility] promethazin 2015- Yes 25 mg = 1 M emoria e 25 mg 2-20 tab, PO, l oral tablet 05:31: Q4H, PRN [place] 00 Nausea, X 3 day, # 18 tab, 0 Refill(s), Pharmacy: [facility] Omeprazole 2015- Yes 20 mg = 1 Me moria 20 MG 2-20 cap, PO, l Enteric 05:31: Daily, # Nimesh n Coated 00 30 cap, 0 Capsule Refill(s), [Prilosec] Pharmacy: [facility] promethazin Yes 25 mg = 1 M emoria e 25 mg 2-20 tab, PO, l oral tablet 05:31: Q4H, PRN [place] 00 Nausea, X 3 day, # 18 tab, 0 Refill(s), Pharmacy: [place] [address] Sucralfate Yes 1 gm = 10 Me moria 100 MG/ML 2-20 ml, PO, l Oral 05:30: QID-Before [place] Suspension 00 Meals, # [Carafate] 400 mL, 0 Refill(s), Pharmacy: [facility] Sucralfate Yes 1 gm = 10 Me moria 100 MG/ML 2-20 ml, PO, l Oral 05:30: QID-Before [place] Suspension 00 Meals, # [Carafate] 400 mL, 0 Refill(s), Pharmacy: [place] [address] Sucralfate Yes 1 gm = 10 Me moria 100 MG/ML 2-20 ml, PO, l Oral 05:30: QID-Before [place] Suspension 00 Meals, # [Carafate] 400 mL, 0 Refill(s), Pharmacy: [facility] Sucralfate Yes 1 gm = 10 Me moria 100 MG/ML 2-20 ml, PO, l Oral 05:30: QID-Before [place] Suspension 00 Meals, # [Carafate] 400 mL, 0 Refill(s), Pharmacy: [facility] Sucralfate Yes 1 gm = 10 Me moria 100 MG/ML 2-20 ml, PO, l Oral 05:30: QID-Before [place] Suspension 00 Meals, # [Carafate] 400 mL, 0 Refill(s), Pharmacy: [facility] Sucralfate Yes 1 gm = 10 Me moria 100 MG/ML 2-20 ml, PO, l Oral 05:30: QID-Before [place] Suspension 00 Meals, # [Carafate] 400 mL, 0 Refill(s), Pharmacy: [facility] Sucralfate Yes 1 gm = 10 Me moria 100 MG/ML 2-20 ml, PO, l Oral 05:30: QID-Before [place] Suspension 00 Meals, # [Carafate] 400 mL, 0 Refill(s), Pharmacy: [facility] Ondansetron No Notes: Akash madhu 2-20 (Same as: l 03:15: Zofran) [place] 00 MEDICATION WASTE Product Size: 4 mg Product Wasted: ___ mg Famotidine No Notes: Memor ia 2-20 (Same as: l 03:15: Pepcid) [place] 00 Can be dilute in 5-10cc NS IVP: Slow IV push over at least 2 minutes. GI cocktail No Notes: Akash madhu 2-20 G.I. l 03:15: Cocktail = [place] 00 antacid with simethicon e 22.5 mL - lidocaine viscous 7.5 mL Sodium 2015- No 1,000 mL, Memori a Chloride 2-20 1000 l 0.154 03:15: ml/hr, [place] MEQ/ML 00 Infuse Injectable Over: 1 Solution hr, Route: IV, 1,000, Drug form: INJ, ONCE, Priority: STAT, Dosing Weight 113.636 kg, Start date: 08/11/15 21:15:00, Duration: 1 doses or times, Stop date: 08/11/15 21:15:00 Saline No Notes: Memoria Flush 0.9% 2-20 (Same as: l 03:15: BD [place] 00 Posiflush) Ondansetron No Notes: Akash madhu 2-20 (Same as: l 03:15: Zofran) [place] 00 MEDICATION WASTE Product Size: 4 mg Product Wasted: ___ mg Famotidine No Notes: Memor ia 2-20 (Same as: l 03:15: Pepcid) [place] 00 Can be dilute in 5-10cc NS IVP: Slow IV push over at least 2 minutes. GI cocktail No Notes: Akash madhu 2-20 G.I. l 03:15: Cocktail = [place] 00 antacid with simethicon e 22.5 mL - lidocaine viscous 7.5 mL Sodium 2015- No 1,000 mL, Memori a Chloride 2-20 1000 l 0.154 03:15: ml/hr, [place] MEQ/ML 00 Infuse Injectable Over: 1 Solution hr, Route: IV, 1,000, Drug form: INJ, ONCE, Priority: STAT, Dosing Weight 113.636 kg, Start date: 08/11/15 21:15:00, Duration: 1 doses or times, Stop date: 08/11/15 21:15:00 Saline No Notes: Memoria Flush 0.9% 2-20 (Same as: l 03:15: BD [place] 00 Posiflush) Ondansetron No Notes: Akash madhu 2-20 (Same as: l 03:15: Zofran) [place] 00 MEDICATION WASTE Product Size: 4 mg Product Wasted: ___ mg Famotidine No Notes: Memor ia 2-20 (Same as: l 03:15: Pepcid) [place] 00 Can be dilute in 5-10cc NS IVP: Slow IV push over at least 2 minutes. GI cocktail No Notes: Akash madhu 2-20 G.I. l 03:15: Cocktail = [place] 00 antacid with simethicon e 22.5 mL - lidocaine viscous 7.5 mL Sodium No 1,000 mL, Memori a Chloride 2-20 1000 l 0.154 03:15: ml/hr, [place] MEQ/ML 00 Infuse Injectable Over: 1 Solution hr, Route: IV, 1,000, Drug form: INJ, ONCE, Priority: STAT, Dosing Weight 113.636 kg, Start date: 08/11/15 21:15:00, Duration: 1 doses or times, Stop date: 08/11/15 21:15:00 Saline No Notes: Memoria Flush 0.9% 2-20 (Same as: l 03:15: BD [place] 00 Posiflush) Ondansetron No Notes: Akash madhu 2-20 (Same as: l 03:15: Zofran) [place] 00 MEDICATION WASTE Product Size: 4 mg Product Wasted: ___ mg Famotidine No Notes: Memor ia 2-20 (Same as: l 03:15: Pepcid) [place] 00 Can be dilute in 5-10cc NS IVP: Slow IV push over at least 2 minutes. GI cocktail No Notes: Akash madhu 2-20 G.I. l 03:15: Cocktail = [place] 00 antacid with simethicon e 22.5 mL - lidocaine viscous 7.5 mL Sodium 2016-0 No 1,000 mL, Memori a Chloride 2-20 1000 l 0.154 03:15: ml/hr, [place] MEQ/ML 00 Infuse Injectable Over: 1 Solution hr, Route: IV, 1,000, Drug form: INJ, ONCE, Priority: STAT, Dosing Weight 113.636 kg, Start date: 08/11/15 21:15:00, Duration: 1 doses or times, Stop date: 08/11/15 21:15:00 Saline No Notes: Memoria Flush 0.9% 2-20 (Same as: l 03:15: BD [place] 00 Posiflush) Ondansetron No Notes: Akash madhu 2-20 (Same as: l 03:15: Zofran) [place] 00 MEDICATION WASTE Product Size: 4 mg Product Wasted: ___ mg Famotidine No Notes: Memor ia 2-20 (Same as: l 03:15: Pepcid) [place] 00 Can be dilute in 5-10cc NS IVP: Slow IV push over at least 2 minutes. GI cocktail No Notes: Akash madhu 2-20 G.I. l 03:15: Cocktail = [place] 00 antacid with simethicon e 22.5 mL - lidocaine viscous 7.5 mL Sodium 2016-0 No 1,000 mL, Memori a Chloride 2-20 1000 l 0.154 03:15: ml/hr, [place] MEQ/ML 00 Infuse Injectable Over: 1 Solution hr, Route: IV, 1,000, Drug form: INJ, ONCE, Priority: STAT, Dosing Weight 113.636 kg, Start date: 08/11/15 21:15:00, Duration: 1 doses or times, Stop date: 08/11/15 21:15:00 Saline No Notes: Memoria Flush 0.9% 2-20 (Same as: l 03:15: BD [place] 00 Posiflush) Ondansetron No Notes: Akash madhu 2-20 (Same as: l 03:15: Zofran) [place] 00 MEDICATION WASTE Product Size: 4 mg Product Wasted: ___ mg Famotidine No Notes: Memor ia 2-20 (Same as: l 03:15: Pepcid) [place] 00 Can be dilute in 5-10cc NS IVP: Slow IV push over at least 2 minutes. GI cocktail No Notes: Akash madhu 2-20 G.I. l 03:15: Cocktail = [place] 00 antacid with simethicon e 22.5 mL - lidocaine viscous 7.5 mL Sodium 2016-0 No 1,000 mL, Memori a Chloride 2-20 1000 l 0.154 03:15: ml/hr, [place] MEQ/ML 00 Infuse Injectable Over: 1 Solution hr, Route: IV, 1,000, Drug form: INJ, ONCE, Priority: STAT, Dosing Weight 113.636 kg, Start date: 08/11/15 21:15:00, Duration: 1 doses or times, Stop date: 08/11/15 21:15:00 Saline No Notes: Memoria Flush 0.9% 2-20 (Same as: l 03:15: BD [place] 00 Posiflush) Ondansetron No Notes: Akash madhu 2-20 (Same as: l 03:15: Zofran) [place] 00 MEDICATION WASTE Product Size: 4 mg Product Wasted: ___ mg Famotidine No Notes: Memor ia 2-20 (Same as: l 03:15: Pepcid) [place] 00 Can be dilute in 5-10cc NS IVP: Slow IV push over at least 2 minutes. GI cocktail No Notes: Akash madhu 2-20 G.I. l 03:15: Cocktail = [place] 00 antacid with simethicon e 22.5 mL - lidocaine viscous 7.5 mL Sodium 2016-0 No 1,000 mL, Memori a Chloride 2-20 1000 l 0.154 03:15: ml/hr, [place] MEQ/ML 00 Infuse Injectable Over: 1 Solution hr, Route: IV, 1,000, Drug form: INJ, ONCE, Priority: STAT, Dosing Weight 113.636 kg, Start date: 08/11/15 21:15:00, Duration: 1 doses or times, Stop date: 08/11/15 21:15:00 Saline No Notes: Memoria Flush 0.9% 2-20 (Same as: l 03:15: BD [place] 00 Posiflush) Dulcolax 2014-06 No Notes: Memoria Laxative 1-08 (Same As: l 17:53: Dulcolax, [place] 00 Bisco-Lax) Dulcolax 2014-06 No Notes: Memoria Laxative 1-08 (Same As: l 17:53: Dulcolax, [place] 00 Bisco-Lax) Dulcolax 2014-06 No Notes: Memoria Laxative 1-08 (Same As: l 17:53: Dulcolax, [place] 00 Bisco-Lax) Dulcolax 2014-06 No Notes: Memoria Laxative 1-08 (Same As: l 17:53: Dulcolax, [place] 00 Bisco-Lax) Dulcolax 2014-06 No Notes: Memoria Laxative 1-08 (Same As: l 17:53: Dulcolax, [place] 00 Bisco-Lax) Dulcolax 2014-06 No Notes: Memoria Laxative 1-08 (Same As: l 17:53: Dulcolax, [place] 00 Bisco-Lax) Dulcolax 2014-06 No Notes: Memoria Laxative 1-08 (Same As: l 17:53: Dulcolax, [place] 00 Bisco-Lax) Acetaminoph 2014-06 Yes 1 tab, PO, Memoria en 300 MG / 08 Q4H, PRN l Codeine 15:16: for pain, Amrita nn Phosphate 00 X 30 day, 30 MG Oral # 30 tab, Tablet 0 [Tylenol Refill(s) with Codeine #3] Acetaminoph 2014-06 Yes 1 tab, PO, Memoria en 300 MG / 08 Q4H, PRN l Codeine 15:16: for pain, Amrita nn Phosphate 00 X 30 day, 30 MG Oral # 30 tab, Tablet 0 [Tylenol Refill(s) with Codeine #3] Acetaminoph 2014-06 Yes 1 tab, PO, Memoria en 300 MG / 1-08 Q4H, PRN l Codeine 15:16: for pain, Amrita nn Phosphate 00 X 30 day, 30 MG Oral # 30 tab, Tablet 0 [Tylenol Refill(s) with Codeine #3] Acetaminoph 2014-06 Yes 1 tab, PO, Memoria en 300 MG / 1-08 Q4H, PRN l Codeine 15:16: for pain, Amrita nn Phosphate 00 X 30 day, 30 MG Oral # 30 tab, Tablet 0 [Tylenol Refill(s) with Codeine #3] Acetaminoph 2014-06 Yes 1 tab, PO, Memoria en 300 MG / 1-08 Q4H, PRN l Codeine 15:16: for pain, Amrita nn Phosphate 00 X 30 day, 30 MG Oral # 30 tab, Tablet 0 [Tylenol Refill(s) with Codeine #3] Acetaminoph 2014-06 Yes 1 tab, PO, Memoria en 300 MG / 1-08 Q4H, PRN l Codeine 15:16: for pain, Amrita nn Phosphate 00 X 30 day, 30 MG Oral # 30 tab, Tablet 0 [Tylenol Refill(s) with Codeine #3] Acetaminoph 2014-06 Yes 1 tab, PO, Memoria en 300 MG / 1-08 Q4H, PRN l Codeine 15:16: for pain, Amrita nn Phosphate 00 X 30 day, 30 MG Oral # 30 tab, Tablet 0 [Tylenol Refill(s) with Codeine #3] Ketorolac 2014-06 No 4 days Memor ia 06-29 l 16:22: MEDICATION [place] 00 WASTE Product Size: 30 mg Product Wasted: ___ mg Ketorolac 2014-06 No 4 days Memor ia 06-29 l 16:22: MEDICATION [place] 00 WASTE Product Size: 30 mg Product Wasted: ___ mg Ketorolac 2014-06 No 4 days Memor ia 06-29 l 16:22: MEDICATION [place] 00 WASTE Product Size: 30 mg Product Wasted: ___ mg Ketorolac 2014-06 No 4 days Memor ia 06-29 l 16:22: MEDICATION [place] 00 WASTE Product Size: 30 mg Product Wasted: ___ mg Ketorolac 2014-06 No 4 days Memor ia 107 l 16:22: MEDICATION [place] 00 WASTE Product Size: 30 mg Product Wasted: ___ mg Ketorolac 2014-06 No 4 days Memor ia 07 l 16:22: MEDICATION [place] 00 WASTE Product Size: 30 mg Product Wasted: ___ mg Ketorolac 2014-06 No 4 days Memor ia 06-29 l 16:22: MEDICATION [place] 00 WASTE Product Size: 30 mg Product Wasted: ___ mg acetaminoph 2014-06 No Notes: Do M emoria en-codeine - not exceed l #3 16:21: 4gm/day of [place] 00 acetaminop hen. (Same as: Tylenol with Codeine # 3) acetaminoph 2014-06 No Notes: Do M emoria en-codeine -07 not exceed l #3 16:21: 4gm/day of [place] 00 acetaminop hen. (Same as: Tylenol with Codeine # 3) acetaminoph 2014-06 No Notes: Do M emoria en-codeine -07 not exceed l #3 16:21: 4gm/day of [place] 00 acetaminop hen. (Same as: Tylenol with Codeine # 3) acetaminoph 2014-06 No Notes: Do M emoria en-codeine -07 not exceed l #3 16:21: 4gm/day of [place] 00 acetaminop hen. (Same as: Tylenol with Codeine # 3) acetaminoph 2014-06 No Notes: Do M emoria en-codeine -07 not exceed l #3 16:21: 4gm/day of [place] 00 acetaminop hen. (Same as: Tylenol with Codeine # 3) acetaminoph 2014-06 No Notes: Do M emoria en-codeine -07 not exceed l #3 16:21: 4gm/day of [place] 00 acetaminop hen. (Same as: Tylenol with Codeine # 3) acetaminoph 2014-06 No Notes: Do M emoria en-codeine 1-07 not exceed l #3 16:21: 4gm/day of [place] 00 acetaminop hen. (Same as: Tylenol with Codeine # 3) influenza 2014-06 No 0.5 mL, Memor ia virus 06-28 Route: IM, l vaccine, 19:45: ONCALL, Nimesh n inactivated 35 Start date: 04/28/15 13:45:35, Stop date: 05/28/15 13:40:35 influenza 2014-06 No 0.5 mL, Memor ia virus 06-28 Route: IM, l vaccine, 19:45: ONCALL, Nimesh n inactivated 35 Start date: 04/28/15 13:45:35, Stop date: 05/28/15 13:40:35 influenza 2014-06 No 0.5 mL, Memor ia virus 06-28 Route: IM, l vaccine, 19:45: ONCALL, Nimesh n inactivated 35 Start date: 04/28/15 13:45:35, Stop date: 05/28/15 13:40:35 influenza 2014-06 No 0.5 mL, Memor ia virus 06-28 Route: IM, l vaccine, 19:45: ONCALL, Nimesh n inactivated 35 Start date: 04/28/15 13:45:35, Stop date: 05/28/15 13:40:35 influenza 2014-06 No 0.5 mL, Memor ia virus 06-28 Route: IM, l vaccine, 19:45: ONCALL, Nimesh n inactivated 35 Start date: 04/28/15 13:45:35, Stop date: 05/28/15 13:40:35 influenza 2014-06 No 0.5 mL, Memor ia virus 06-28 Route: IM, l vaccine, 19:45: ONCALL, Nimesh n inactivated 35 Start date: 04/28/15 13:45:35, Stop date: 05/28/15 13:40:35 influenza 2014-06 No 0.5 mL, Memor ia virus 06-28 Route: IM, l vaccine, 19:45: ONCALL, Nimesh n inactivated 35 Start date: 04/28/15 13:45:35, Stop date: 05/28/15 13:40:35 Hydromorpho 2014-06 No Notes: Akash madhu ne 1-06 (Same as: l 16:30: Dilaudid) conc = 0.5 mg/ml Hydromorph one MANAGER BABY Dose: ;Delay: ;Basal: Hydromorpho 2014-06 No Notes: Akash madhu ne 1-06 (Same as: l 16:30: Dilaudid) conc = 0.5 mg/ml Hydromorph one MANAGER BABY Dose: ;Delay: ;Basal: Hydromorpho 2014-06 No Notes: Akash madhu ne 1-06 (Same as: l 16:30: Dilaudid) conc = 0.5 mg/ml Hydromorph one MANAGER BABY Dose: ;Delay: ;Basal: Hydromorpho 2014-06 No Notes: Akash madhu ne 1-06 (Same as: l 16:30: Dilaudid) conc = 0.5 mg/ml Hydromorph one MANAGER BABY Dose: ;Delay: ;Basal: Hydromorpho 2014-06 No Notes: Akash madhu ne 1-06 (Same as: l 16:30: Dilaudid) conc = 0.5 mg/ml Hydromorph one MANAGER BABY Dose: ;Delay: ;Basal: Hydromorpho 2014-06 No Notes: Akash madhu ne 1-06 (Same as: l 16:30: Dilaudid) conc = 0.5 mg/ml Hydromorph one MANAGER BABY Dose: ;Delay: ;Basal: Hydromorpho 2014-06 No Notes: Akash madhu ne 1-06 (Same as: l 16:30: Dilaudid) conc = 0.5 mg/ml Hydromorph one MANAGER BABY Dose: ;Delay: ;Basal: Naloxone 2014-06 No Notes: Memoria 1- Same as l 16:18: Narcan Docusate 2014-06 No Notes: Memoria 1- (Same as: l 16:18: Colace) (Do Not Crush) Ondansetron 2014-06 No Notes: Akash madhu 1-06 (Same as: l 16:18: Zofran) MEDICATION WASTE Product Size: 4 mg Product Wasted: ___ mg Diphenhydra 2014-06 No 25 mg, 1 Me moria mine 06-28 tab, l 16:18: Route: PO, [place] 00 Drug form: TAB, Bedtime, Dosing Weight 116.449, kg, PRN Insomnia, Start date: 04/28/15 10:18:00, Duration: 30 day, Stop date: 05/28/15 10:17:00 Calcium 2014-06 No 1,000 mL, Memor ia Chloride 06-28 Rate: 150 l 0.0014 16:18: ml/hr, [place] MEQ/ML / 00 Infuse Potassium over: 6.7 Chloride hr, Route: 0.004 IV, Dosing MEQ/ML / Weight Sodium 116.449 Chloride kg, Total 0.103 Volume: MEQ/ML / 1,000, Sodium Start Lactate date: 0.028 04/28/15 MEQ/ML 10:18:00, Injectable Duration: Solution 30 day, Stop date: 05/28/15 10:17:00 Naloxone 2014-06 No Notes: Memoria 06-28 Same as l 16:18: Narcan [place] 00 Docusate 2014-06 No Notes: Memoria 06-28 (Same as: l 16:18: Colace) [place] (Do Not Crush) Ondansetron 2014-06 No Notes: Akash madhu 06-28 (Same as: l 16:18: Zofran) [place] 00 MEDICATION WASTE Product Size: 4 mg Product Wasted: ___ mg Diphenhydra 2014-06 No 25 mg, 1 Me moria mine 06-28 tab, l 16:18: Route: PO, [place] 00 Drug form: TAB, Bedtime, Dosing Weight 116.449, kg, PRN Insomnia, Start date: 04/28/15 10:18:00, Duration: 30 day, Stop date: 05/28/15 10:17:00 Calcium 2014-06 No 1,000 mL, Memor ia Chloride 06-28 Rate: 150 l 0.0014 16:18: ml/hr, [place] MEQ/ML / 00 Infuse Potassium over: 6.7 Chloride hr, Route: 0.004 IV, Dosing MEQ/ML / Weight Sodium 116.449 Chloride kg, Total 0.103 Volume: MEQ/ML / 1,000, Sodium Start Lactate date: 0.028 04/28/15 MEQ/ML 10:18:00, Injectable Duration: Solution 30 day, Stop date: 05/28/15 10:17:00 Naloxone 2014-06 No Notes: Memoria 06-28 Same as l 16:18: Narcan [place] 00 Docusate 2014-06 No Notes: Memoria 06-28 (Same as: l 16:18: Colace) [place] (Do Not Crush) Ondansetron 2014-06 No Notes: Akash madhu 06-28 (Same as: l 16:18: Zofran) [place] 00 MEDICATION WASTE Product Size: 4 mg Product Wasted: ___ mg Diphenhydra 2014-06 No 25 mg, 1 Me moria mine 06-28 tab, l 16:18: Route: PO, [place] 00 Drug form: TAB, Bedtime, Dosing Weight 116.449, kg, PRN Insomnia, Start date: 04/28/15 10:18:00, Duration: 30 day, Stop date: 05/28/15 10:17:00 Calcium 2014-06 No 1,000 mL, Memor ia Chloride 06-28 Rate: 150 l 0.0014 16:18: ml/hr, MEQ/ML / 00 Infuse Potassium over: 6.7 Chloride hr, Route: 0.004 IV, Dosing MEQ/ML / Weight Sodium 116.449 Chloride kg, Total 0.103 Volume: MEQ/ML / 1,000, Sodium Start Lactate date: 0.028 04/28/15 MEQ/ML 10:18:00, Injectable Duration: Solution 30 day, Stop date: 05/28/15 10:17:00 Naloxone 2014-06 No Notes: Memoria 06-28 Same as l 16:18: Narcan [place] Docusate 2014-06 No Notes: Memoria 06-28 (Same as: l 16:18: Colace) [place] (Do Not Crush) Ondansetron 2014-06 No Notes: Akash madhu 06-28 (Same as: l 16:18: Zofran) [place] 00 MEDICATION WASTE Product Size: 4 mg Product Wasted: ___ mg Diphenhydra 2014-06 No 25 mg, 1 Me moria mine 06-28 tab, l 16:18: Route: PO, [place] 00 Drug form: TAB, Bedtime, Dosing Weight 116.449, kg, PRN Insomnia, Start date: 04/28/15 10:18:00, Duration: 30 day, Stop date: 05/28/15 10:17:00 Calcium 2014-06 No 1,000 mL, Memor ia Chloride 06-28 Rate: 150 l 0.0014 16:18: ml/hr, [place] MEQ/ML / 00 Infuse Potassium over: 6.7 Chloride hr, Route: 0.004 IV, Dosing MEQ/ML / Weight Sodium 116.449 Chloride kg, Total 0.103 Volume: MEQ/ML / 1,000, Sodium Start Lactate date: 0.028 04/28/15 MEQ/ML 10:18:00, Injectable Duration: Solution 30 day, Stop date: 05/28/15 10:17:00 Naloxone 2014-06 No Notes: Memoria - Same as l 16:18: Narcan [place] Docusate 2014-06 No Notes: Memoria 06-28 (Same as: l 16:18: Colace) [place] 00 (Do Not Crush) Ondansetron 2014-06 No Notes: Akash madhu 06-28 (Same as: l 16:18: Zofran) [place] 00 MEDICATION WASTE Product Size: 4 mg Product Wasted: ___ mg Diphenhydra 2014-06 No 25 mg, 1 Me moria mine 06-28 tab, l 16:18: Route: PO, [place] 00 Drug form: TAB, Bedtime, Dosing Weight 116.449, kg, PRN Insomnia, Start date: 04/28/15 10:18:00, Duration: 30 day, Stop date: 05/28/15 10:17:00 Calcium 2014-06 No 1,000 mL, Memor ia Chloride 06-28 Rate: 150 l 0.0014 16:18: ml/hr, [place] MEQ/ML / 00 Infuse Potassium over: 6.7 Chloride hr, Route: 0.004 IV, Dosing MEQ/ML / Weight Sodium 116.449 Chloride kg, Total 0.103 Volume: MEQ/ML / 1,000, Sodium Start Lactate date: 0.028 04/28/15 MEQ/ML 10:18:00, Injectable Duration: Solution 30 day, Stop date: 05/28/15 10:17:00 Naloxone 2014-06 No Notes: Memoria 06-28 Same as l 16:18: Narcan [place] 00 Docusate 2014-06 No Notes: Memoria 06-28 (Same as: l 16:18: Colace) [place] 00 (Do Not Crush) Ondansetron 2014-06 No Notes: Akash madhu 06-28 (Same as: l 16:18: Zofran) [place] 00 MEDICATION WASTE Product Size: 4 mg Product Wasted: ___ mg Diphenhydra 2014-06 No 25 mg, 1 Me moria mine 06-28 tab, l 16:18: Route: PO, [place] 00 Drug form: TAB, Bedtime, Dosing Weight 116.449, kg, PRN Insomnia, Start date: 04/28/15 10:18:00, Duration: 30 day, Stop date: 05/28/15 10:17:00 Calcium 2014-06 No 1,000 mL, Memor ia Chloride 06-28 Rate: 150 l 0.0014 16:18: ml/hr, MEQ/ML / 00 Infuse Potassium over: 6.7 Chloride hr, Route: 0.004 IV, Dosing MEQ/ML / Weight Sodium 116.449 Chloride kg, Total 0.103 Volume: MEQ/ML / 1,000, Sodium Start Lactate date: 0.028 04/28/15 MEQ/ML 10:18:00, Injectable Duration: Solution 30 day, Stop date: 05/28/15 10:17:00 Naloxone 2014-06 No Notes: Memoria 06-28 Same as l 16:18: Narcan [place] 00 Docusate 2014-06 No Notes: Memoria 06-28 (Same as: l 16:18: Colace) [place] (Do Not Crush) Ondansetron 2014-06 No Notes: Akash madhu 06-28 (Same as: l 16:18: Zofran) [place] 00 MEDICATION WASTE Product Size: 4 mg Product Wasted: ___ mg Diphenhydra 2014-06 No 25 mg, 1 Me moria mine 06-28 tab, l 16:18: Route: PO, [place] 00 Drug form: TAB, Bedtime, Dosing Weight 116.449, kg, PRN Insomnia, Start date: 04/28/15 10:18:00, Duration: 30 day, Stop date: 05/28/15 10:17:00 Calcium 2014-06 No 1,000 mL, Memor ia Chloride 06-28 Rate: 150 l 0.0014 16:18: ml/hr, [place] MEQ/ML / 00 Infuse Potassium over: 6.7 Chloride hr, Route: 0.004 IV, Dosing MEQ/ML / Weight Sodium 116.449 Chloride kg, Total 0.103 Volume: MEQ/ML / 1,000, Sodium Start Lactate date: 0.028 04/28/15 MEQ/ML 10:18:00, Injectable Duration: Solution 30 day, Stop date: 05/28/15 10:17:00 Naloxone 2014-06 No Notes: Memoria - Same as l 14:51: Narcan Flumazenil 2014-06 No Notes: Memor ia - (Same as: l 14:51: Romazicon) Hydromorpho 2014-06 No Notes: Akash madhu ne 06-28 (Same as: l 14:51: Dilaudid) Morphine 2014-06 No Notes: Memoria - (Same l 14:51: as:MORPhin e Sulfate) Meperidine 2014-06 No Notes: Memor ia - (Same as: l 14:51: Demerol) "Use Precaution in Elderly, Seizure disorders, and Renal impairment " Ondansetron 2014-06 No 4 mg, Memor ia 06-28 Route: l 14:51: IVP, ONCE, Dosing Weight 116.449, kg, PRN Nausea & Vomiting, Start date: 04/28/15 8:51:00 Fentanyl 2014-06 No Notes: Memoria 06-28 (Same as: l 14:51: Sublimaze) Preservati ve free. Diphenhydra 2014-06 No Notes: Akash madhu mine - (Same as: l 14:51: Benadryl) Oxycodone 2014-06 No Notes: Memori a - (Same as: l 14:51: Roxicodone ) Calcium 2014-06 No 1,000 mL, Memor ia Chloride - Rate: 125 l 0.0014 14:51: ml/hr, [place] MEQ/ML / 00 Infuse Potassium over: 8 Chloride hr, Route: 0.004 IV, Dosing MEQ/ML / Weight Sodium 116.449 Chloride kg, Total 0.103 Volume: MEQ/ML / 1,000, Sodium Start Lactate date: 0.028 15 MEQ/ML 8:51:00, Injectable Duration: Solution 30 day, Stop date: 05/28/15 8:50:00 Naloxone 2014-06 No Notes: Memoria 06-28 Same as l 14:51: Narcan Flumazenil 2014-06 No Notes: Memor ia - (Same as: l 14:51: Romazicon) Hydromorpho 2014-06 No Notes: Akash madhu ne 06-28 (Same as: l 14:51: Dilaudid) Morphine 2014-06 No Notes: Memoria 06-28 (Same l 14:51: as:MORPhin e Sulfate) Meperidine 2014-06 No Notes: Memor ia 06-28 (Same as: l 14:51: Demerol) "Use Precaution in Elderly, Seizure disorders, and Renal impairment " Ondansetron 2014-06 No 4 mg, Memor ia 06-28 Route: l 14:51: IVP, ONCE, Dosing Weight 116.449, kg, PRN Nausea & Vomiting, Start date: 04/28/15 8:51:00 Fentanyl 2014-06 No Notes: Memoria 06-28 (Same as: l 14:51: Sublimaze) Preservati ve free. Diphenhydra 2014-06 No Notes: Akash madhu mine 06-28 (Same as: l 14:51: Benadryl) Oxycodone 2014-06 No Notes: Memori a 06-28 (Same as: l 14:51: Roxicodone ) Calcium 2014-06 No 1,000 mL, Memor ia Chloride 06-28 Rate: 125 l 0.0014 14:51: ml/hr, MEQ/ML / 00 Infuse Potassium over: 8 Chloride hr, Route: 0.004 IV, Dosing MEQ/ML / Weight Sodium 116.449 Chloride kg, Total 0.103 Volume: MEQ/ML / 1,000, Sodium Start Lactate date: 0.028 11/06/15 MEQ/ML 8:51:00, Injectable Duration: Solution 30 day, Stop date: 05/28/15 8:50:00 Naloxone 2014-06 No Notes: Memoria 1-06 Same as l 14:51: Narcan Flumazenil 2014-06 No Notes: Memor ia 1-06 (Same as: l 14:51: Romazicon) Hydromorpho 2014-06 No Notes: Akash madhu ne - (Same as: l 14:51: Dilaudid) Morphine 2014-06 No Notes: Memoria 1-06 (Same l 14:51: as:MORPhin e Sulfate) Meperidine 2014-06 No Notes: [facility] ia 1- (Same as: l 14:51: Demerol) "Use Precaution in Elderly, Seizure disorders, and Renal impairment " Ondansetron 2014-06 No 4 mg, Memor ia 06-28 Route: l 14:51: IVP, ONCE, Dosing Weight 116.449, kg, PRN Nausea & Vomiting, Start date: 04/28/15 8:51:00 Fentanyl 2014-06 No Notes: Memoria 06-28 (Same as: l 14:51: Sublimaze) Preservati ve free. Diphenhydra 2014-06 No Notes: Akash madhu mine - (Same as: l 14:51: Benadryl) Oxycodone 2014-06 No Notes: Memori a -06 (Same as: l 14:51: Roxicodone ) Calcium 2014-06 No 1,000 mL, Mem[facility] ia Chloride 06 Rate: 125 l 0.0014 14:51: ml/hr, MEQ/ML / 00 Infuse Potassium over: 8 Chloride hr, Route: 0.004 IV, Dosing MEQ/ML / Weight Sodium 116.449 Chloride kg, Total 0.103 Volume: MEQ/ML / 1,000, Sodium Start Lactate date: 0.028 04/28/15 MEQ/ML 8:51:00, Injectable Duration: Solution 30 day, Stop date: 05/28/15 8:50:00 Naloxone 2014-06 No Notes: Memoria 1-06 Same as l 14:51: Narcan Flumazenil 2014-06 No Notes: [facility] ia 1-06 (Same as: l 14:51: Romazicon) Hydromorpho 2014-06 No Notes: Akash madhu ne - (Same as: l 14:51: Dilaudid) Morphine 2014-06 No Notes: Memoria 06-28 (Same l 14:51: as:MORPhin e Sulfate) Meperidine 2014-06 No Notes: [facility] ia 1- (Same as: l 14:51: Demerol) "Use Precaution in Elderly, Seizure disorders, and Renal impairment " Ondansetron 2014-06 No 4 mg, Memor ia 06-28 Route: l 14:51: IVP, ONCE, Dosing Weight 116.449, kg, PRN Nausea & Vomiting, Start date: 04/28/15 8:51:00 Fentanyl 2014-06 No Notes: Memoria 06-28 (Same as: l 14:51: Sublimaze) Preservati ve free. Diphenhydra 2014-06 No Notes: Akash madhu mine - (Same as: l 14:51: Benadryl) Oxycodone 2014-06 No Notes: Memori a - (Same as: l 14:51: Roxicodone ) Calcium 2014-06 No 1,000 mL, [facility] Chloride 06-28 Rate: 125 l 0.0014 14:51: ml/hr, Jose Antonio MEQ/ML / 00 Infuse Potassium over: 8 Chloride hr, Route: 0.004 IV, Dosing MEQ/ML / Weight Sodium 116.449 Chloride kg, Total 0.103 Volume: MEQ/ML / 1,000, Sodium Start Lactate date: 0.028 04/28/15 MEQ/ML 8:51:00, Injectable Duration: Solution 30 day, Stop date: 05/28/15 8:50:00 Naloxone 2014-06 No Notes: Memoria 1- Same as l 14:51: Narcan Flumazenil 2014-06 No Notes: [facility] ia 1-06 (Same as: l 14:51: Romazicon) Hydromorpho 2014-06 No Notes: Akash madhu ne -06 (Same as: l 14:51: Dilaudid) Morphine 2014-06 No Notes: [facility]oria 06-28 (Same l 14:51: as:MORPhin e Sulfate) Meperidine 2014-06 No Notes: Memor ia - (Same as: l 14:51: Demerol) "Use Precaution in Elderly, Seizure disorders, and Renal impairment " Ondansetron 2014-06 No 4 mg, Mem[facility] ia 06-28 Route: l 14:51: IVP, ONCE, Dosing Weight 116.449, kg, PRN Nausea & Vomiting, Start date: 04/28/15 8:51:00 Fentanyl 2014-06 No Notes: Mem[facility] 06-28 (Same as: l 14:51: Sublimaze) Preservati ve free. Diphenhydra 2014-06 No Notes: Akash madhu mine 06-28 (Same as: l 14:51: Benadryl) Oxycodone 2014-06 No Notes: Memori a - (Same as: l 14:51: Roxicodone ) Calcium 2014-06 No 1,000 mL, [facility] Chloride 06-28 Rate: 125 l 0.0014 14:51: ml/hr, MEQ/ML / 00 Infuse Potassium over: 8 Chloride hr, Route: 0.004 IV, Dosing MEQ/ML / Weight Sodium 116.449 Chloride kg, Total 0.103 Volume: MEQ/ML / 1,000, Sodium Start Lactate date: 0.028 04/28/15 MEQ/ML 8:51:00, Injectable Duration: Solution 30 day, Stop date: 05/28/15 8:50:00 Naloxone 2014-06 No Notes: Memoria 1- Same as l 14:51: Narcan Flumazenil 2014-06 No Notes: [facility] ia 1- (Same as: l 14:51: Romazicon) Hydromorpho 2014-06 No Notes: Akash madhu ne - (Same as: l 14:51: Dilaudid) Morphine 2014-06 No Notes: Memoria 06-28 (Same l 14:51: as:MORPhin e Sulfate) Meperidine 2014-06 No Notes: [facility] ia 1-06 (Same as: l 14:51: Demerol) "Use Precaution in Elderly, Seizure disorders, and Renal impairment " Ondansetron 2014-06 No 4 mg, Memor ia 06-28 Route: l 14:51: IVP, ONCE, [place] 00 Dosing Weight 116.449, kg, PRN Nausea & Vomiting, Start date: 04/28/15 8:51:00 Fentanyl 2014-06 No Notes: [facility] 06-28 (Same as: l 14:51: Sublimaze) Preservati ve free. Diphenhydra 2014-06 No Notes: Akash madhu mine 06-28 (Same as: l 14:51: Benadryl) Oxycodone 2014-06 No Notes: Memori a 06-28 (Same as: l 14:51: Roxicodone ) Calcium 2014-06 No 1,000 mL, [facility] Chloride 06-28 Rate: 125 l 0.0014 14:51: ml/hr, MEQ/ML / 00 Infuse Potassium over: 8 Chloride hr, Route: 0.004 IV, Dosing MEQ/ML / Weight Sodium 116.449 Chloride kg, Total 0.103 Volume: MEQ/ML / 1,000, Sodium Start Lactate date: 0.028 04/28/15 MEQ/ML 8:51:00, Injectable Duration: Solution 30 day, Stop date: 05/28/15 8:50:00 Naloxone 2014-06 No Notes: Memoria 06-28 Same as l 14:51: Narcan Flumazenil 2014-06 No Notes: [facility] ia - (Same as: l 14:51: Romazicon) Hydromorpho 2014-06 No Notes: Akash madhu ne 06-28 (Same as: l 14:51: Dilaudid) Morphine 2014-06 No Notes: [facility]oria 06-28 (Same l 14:51: as:MORPhin e Sulfate) Meperidine 2014-06 No Notes: Memor ia - (Same as: l 14:51: Demerol) "Use Precaution in Elderly, Seizure disorders, and Renal impairment " Ondansetron 2014-06 No 4 mg, [facility] ia 06-28 Route: l 14:51: IVP, ONCE, Dosing Weight 116.449, kg, PRN Nausea & Vomiting, Start date: 04/28/15 8:51:00 Fentanyl 2014-06 No Notes: [facility] 06-28 (Same as: l 14:51: Sublimaze) Preservati ve free. Diphenhydra 2014-06 No Notes: Akash madhu mine 06-28 (Same as: l 14:51: Benadryl) Oxycodone 2014-06 No Notes: Memori a -06 (Same as: l 14:51: Roxicodone ) Calcium 2014-06 No 1,000 mL, [facility] Chloride 06-28 Rate: 125 l 0.0014 14:51: ml/hr, MEQ/ML / 00 Infuse Potassium over: 8 Chloride hr, Route: 0.004 IV, Dosing MEQ/ML / Weight Sodium 116.449 Chloride kg, Total 0.103 Volume: MEQ/ML / 1,000, Sodium Start Lactate date: 0.028 04/28/15 MEQ/ML 8:51:00, Injectable Duration: Solution 30 day, Stop date: 05/28/15 8:50:00 lidocaine 2014-06 No Notes: Memori a 1% 1-06 Preservati l 13:00: ve free. [place] 00 (Same as: Xylocaine MPF) lidocaine 2014-06 No Notes: Memori a 1% 1-06 Preservati l 13:00: ve free. [place] 00 (Same as: Xylocaine MPF) lidocaine 2014-06 No Notes: Memori a 1% 1-06 Preservati l 13:00: ve free. [place] (Same as: Xylocaine MPF) lidocaine 2014-06 No Notes: Memori a 1% 1-06 Preservati l 13:00: ve free. [place] (Same as: Xylocaine MPF) lidocaine 2014-06 No Notes: Memori a 1% 1-06 Preservati l 13:00: ve free. [place] (Same as: Xylocaine MPF) lidocaine 2014-06 No Notes: Memori a 1% 1-06 Preservati l 13:00: ve free. Jose Antonio (Same as: Xylocaine MPF) lidocaine 2014-06 No Notes: Memori a 1% 1-06 Preservati l 13:00: ve free. [place] 00 (Same as: Xylocaine MPF) Calcium 2014-06 No 1,000 mL, [facility] ia Chloride 06-28 Rate: 25 l 0.0014 12:10: ml/hr, Jose Antonio MEQ/ML / 00 Infuse Potassium over: 40 Chloride hr, Route: 0.004 IV, Dosing MEQ/ML / Weight Sodium 112.273 Chloride kg, Total 0.103 Volume: MEQ/ML / 1,000, Sodium Start Lactate date: 0.028 15 MEQ/ML 6:10:00, Injectable Duration: Solution 30 day, Stop date: 05/28/15 6:09:00 Calcium 2014-06 No 1,000 mL, [facility] Chloride 06-28 Rate: 25 l 0.0014 12:10: ml/hr, Jose Antonio MEQ/ML / 00 Infuse Potassium over: 40 Chloride hr, Route: 0.004 IV, Dosing MEQ/ML / Weight Sodium 112.273 Chloride kg, Total 0.103 Volume: MEQ/ML / 1,000, Sodium Start Lactate date: 0.028 04/28/15 MEQ/ML 6:10:00, Injectable Duration: Solution 30 day, Stop date: 05/28/15 6:09:00 Calcium 2014-06 No 1,000 mL, [facility] Chloride 06-28 Rate: 25 l 0.0014 12:10: ml/hr, Jose Antonio MEQ/ML / 00 Infuse Potassium over: 40 Chloride hr, Route: 0.004 IV, Dosing MEQ/ML / Weight Sodium 112.273 Chloride kg, Total 0.103 Volume: MEQ/ML / 1,000, Sodium Start Lactate date: 0.028 15 MEQ/ML 6:10:00, Injectable Duration: Solution 30 day, Stop date: 05/28/15 6:09:00 Calcium 2014-06 No 1,000 mL, [facility] Chloride 06-28 Rate: 25 l 0.0014 12:10: ml/hr, Jose Antonio MEQ/ML / 00 Infuse Potassium over: 40 Chloride hr, Route: 0.004 IV, Dosing MEQ/ML / Weight Sodium 112.273 Chloride kg, Total 0.103 Volume: MEQ/ML / 1,000, Sodium Start Lactate date: 0.028 15 MEQ/ML 6:10:00, Injectable Duration: Solution 30 day, Stop date: 05/28/15 6:09:00 Calcium 2014-06 No 1,000 mL, Mem[facility] ia Chloride 06-28 Rate: 25 l 0.0014 12:10: ml/hr, [place] MEQ/ML / 00 Infuse Potassium over: 40 Chloride hr, Route: 0.004 IV, Dosing MEQ/ML / Weight Sodium 112.273 Chloride kg, Total 0.103 Volume: MEQ/ML / 1,000, Sodium Start Lactate date: 0.028 04/28/15 MEQ/ML 6:10:00, Injectable Duration: Solution 30 day, Stop date: 05/28/15 6:09:00 Calcium 2014-06 No 1,000 mL, Mem[facility] ia Chloride 06-28 Rate: 25 l 0.0014 12:10: ml/hr, [place] MEQ/ML / 00 Infuse Potassium over: 40 Chloride hr, Route: 0.004 IV, Dosing MEQ/ML / Weight Sodium 112.273 Chloride kg, Total 0.103 Volume: MEQ/ML / 1,000, Sodium Start Lactate date: 0.028 04/28/15 MEQ/ML 6:10:00, Injectable Duration: Solution 30 day, Stop date: 05/28/15 6:09:00 Calcium 2014-06 No 1,000 mL, Mem[facility] ia Chloride 06-28 Rate: 25 l 0.0014 12:10: ml/hr, Jose Antonio MEQ/ML / 00 Infuse Potassium over: 40 Chloride hr, Route: 0.004 IV, Dosing MEQ/ML / Weight Sodium 112.273 Chloride kg, Total 0.103 Volume: MEQ/ML / 1,000, Sodium Start Lactate date: 0.028 04/28/15 MEQ/ML 6:10:00, Injectable Duration: Solution 30 day, Stop date: 05/28/15 6:09:00 Lactated 2014-06 No 1,000 mL, Akash madhu Ringers 06-28 Rate: 100 l Injection 12:00: ml/hr, Nimesh n IV 1,000 mL 00 Infuse over: 10 hr, Route: IV, Dosing Weight 112.273 kg, Total Volume: 1,000, Start date: 04/28/15 6:00:00, Duration: 1 day, Stop date: 04/29/15 5:59:00 ceFAZolin 2014-06 No Notes: Memori a 06-28 Same as: l 12:00: Ancef [place] 00 sodium 2014-06 No Notes: Memoria chloride 1-06 preservati l 12:00: ve free. [place] 00 Lactated 2014-06 No 1,000 mL, Akash madhu Ringers -06 Rate: 100 l Injection 12:00: ml/hr, Nimesh n IV 1,000 mL 00 Infuse over: 10 hr, Route: IV, Dosing Weight 112.273 kg, Total Volume: 1,000, Start date: 04/28/15 6:00:00, Duration: 1 day, Stop date: 04/29/15 5:59:00 ceFAZolin 2014-06 No Notes: Memori a 06-28 Same as: l 12:00: Ancef [place] sodium 2014-06 No Notes: [facility]oria chloride 1-06 preservati l 12:00: ve free. [place] 00 Lactated 2014-06 No 1,000 mL, Akash madhu Ringers 06-28 Rate: 100 l Injection 12:00: ml/hr, Nimesh n IV 1,000 mL 00 Infuse over: 10 hr, Route: IV, Dosing Weight 112.273 kg, Total Volume: 1,000, Start date: 04/28/15 6:00:00, Duration: 1 day, Stop date: 04/29/15 5:59:00 ceFAZolin 2014-06 No Notes: Memori a 06-28 Same as: l 12:00: Ancef [place] sodium 2014-06 No Notes: [facility] chloride 1-06 preservati l 12:00: ve free. [place] 00 Lactated 2014-06 No 1,000 mL, Akash madhu Ringers 06 Rate: 100 l Injection 12:00: ml/hr, Nimesh n IV 1,000 mL 00 Infuse over: 10 hr, Route: IV, Dosing Weight 112.273 kg, Total Volume: 1,000, Start date: 04/28/15 6:00:00, Duration: 1 day, Stop date: 04/29/15 5:59:00 ceFAZolin 2014-06 No Notes: Memori a 06-28 Same as: l 12:00: Ancef [place] 00 sodium 2014-06 No Notes: [facility] chloride 1-06 preservati l 12:00: ve free. [place] Lactated 2014-06 No 1,000 mL, Akash madhu Ringers -06 Rate: 100 l Injection 12:00: ml/hr, Nimesh n IV 1,000 mL 00 Infuse over: 10 hr, Route: IV, Dosing Weight 112.273 kg, Total Volume: 1,000, Start date: 04/28/15 6:00:00, Duration: 1 day, Stop date: 04/29/15 5:59:00 ceFAZolin 2014-06 No Notes: Memori a 06-28 Same as: l 12:00: Ancef [place] sodium 2014-06 No Notes: Memoria chloride - preservati l 12:00: ve free. [place] Lactated 2014-06 No 1,000 mL, Akash madhu Ringers 06-28 Rate: 100 l Injection 12:00: ml/hr, Nimesh n IV 1,000 mL 00 Infuse over: 10 hr, Route: IV, Dosing Weight 112.273 kg, Total Volume: 1,000, Start date: 04/28/15 6:00:00, Duration: 1 day, Stop date: 04/29/15 5:59:00 ceFAZolin 2014-06 No Notes: Memori a 06-28 Same as: l 12:00: Ancef [place] sodium 2014-06 No Notes: Memoria chloride 06-28 preservati l 12:00: ve free. [place] 00 Lactated 2014-06 No 1,000 mL, Akash madhu Ringers 06-28 Rate: 100 l Injection 12:00: ml/hr, Nimesh n IV 1,000 mL 00 Infuse over: 10 hr, Route: IV, Dosing Weight 112.273 kg, Total Volume: 1,000, Start date: 04/28/15 6:00:00, Duration: 1 day, Stop date: 04/29/15 5:59:00 ceFAZolin 2014-06 No Notes: Memori a 06-28 Same as: l 12:00: Ancef [place] sodium 2014-06 No Notes: [facility] chloride 1-06 preservati l 12:00: ve free. Tramadol 2014-06 No 50 mg, PO, Mem oria 1-04 Q4-6H, PRN l 22:57: Pain, # 20 [place] 00 tab, 0 Refill(s) Tramadol 2014-06 No 50 mg, PO, Mem oria 1-04 Q4-6H, PRN l 22:57: Pain, # 20 [place] 00 tab, 0 Refill(s) Tramadol 2014-06 No 50 mg, PO, Mem oria 1-04 Q4-6H, PRN l 22:57: Pain, # 20 [place] 00 tab, 0 Refill(s) Tramadol 2014-06 No 50 mg, PO, Mem oria 1-04 Q4-6H, PRN l 22:57: Pain, # 20 [place] 00 tab, 0 Refill(s) Tramadol 2014-06 No 50 mg, PO, Mem oria 1-04 Q4-6H, PRN l 22:57: Pain, # 20 [place] 00 tab, 0 Refill(s) Tramadol 2014-06 No 50 mg, PO, Mem oria 1-04 Q4-6H, PRN l 22:57: Pain, # 20 [place] 00 tab, 0 Refill(s) Tramadol 2014-06 No 50 mg, PO, Mem oria 1-04 Q4-6H, PRN l 22:57: Pain, # 20 [place] 00 tab, 0 Refill(s) tramadol 2014-06 Yes 50 mg = 1 Akash madhu hydrochlori 0-28 tab, PO, l de 50 MG 07:52: Q4H, PRN Amrita nn Oral Tablet 00 Pain, X 3 day, # 18 tab, 0 Refill(s) tramadol 2014-06 Yes 50 mg = 1 Akash madhu hydrochlori 0-28 tab, PO, l de 50 MG 07:52: Q4H, PRN [place] nn Oral Tablet 00 Pain, X 3 day, # 18 tab, 0 Refill(s) tramadol 2014-06 Yes 50 mg = 1 Akash madhu hydrochlori 0-28 tab, PO, l de 50 MG 07:52: Q4H, PRN [place]rit[place] nn Oral Tablet 00 Pain, X 3 day, # 18 tab, 0 Refill(s) tramadol 2014-06 Yes 50 mg = 1 Akash madhu hydrochlori 0-28 tab, PO, l de 50 MG 07:52: Q4H, PRN [place]rit[place] nn Oral Tablet 00 Pain, X 3 day, # 18 tab, 0 Refill(s) tramadol 2014-06 Yes 50 mg = 1 Akash madhu hydrochlori 0-28 tab, PO, l de 50 MG 07:52: Q4H, PRN [place]rit[place] nn Oral Tablet 00 Pain, X 3 day, # 18 tab, 0 Refill(s) tramadol 2014-06 Yes 50 mg = 1 Akash madhu hydrochlori 0-28 tab, PO, l de 50 MG 07:52: Q4H, PRN [place] nn Oral Tablet 00 Pain, X 3 day, # 18 tab, 0 Refill(s) tramadol 2014-06 Yes 50 mg = 1 Akash madhu hydrochlori 0-28 tab, PO, l de 50 MG 07:52: Q4H, PRN Amrita nn Oral Tablet 00 Pain, X 3 day, # 18 tab, 0 Refill(s) tramadol 2014-06 No Notes: Not Mem oria hydrochlori 0-28 to exceed l de 50 MG 06:52: 400mg/day. Her thomas Oral Tablet 00 (Same As: Ultram) tramadol 2014-06 No Notes: Not Mem oria hydrochlori 0-28 to exceed l de 50 MG 06:52: 400mg/day. Her thomas Oral Tablet 00 (Same As: Ultram) tramadol 2014-06 No Notes: Not Mem oria hydrochlori 0-28 to exceed l de 50 MG 06:52: 400mg/day. Her thomas Oral Tablet 00 (Same As: Ultram) tramadol 2014-06 No Notes: Not Mem oria hydrochlori 0-28 to exceed l de 50 MG 06:52: 400mg/day. Her thomas Oral Tablet 00 (Same As: Ultram) tramadol 2014-06 No Notes: Not Mem oria hydrochlori 0-28 to exceed l de 50 MG 06:52: 400mg/day. Her thomas Oral Tablet 00 (Same As: Ultram) tramadol 2014-06 No Notes: Not Mem oria hydrochlori 0-28 to exceed l de 50 MG 06:52: 400mg/day. Her thomas Oral Tablet 00 (Same As: Ultram) tramadol 2014-06 No Notes: Not Mem oria hydrochlori 0-28 to exceed l de 50 MG 06:52: 400mg/day. Her thomas Oral Tablet 00 (Same As: Ultram) Acetaminoph 2014-06 No Notes: Akash madhu en 325 MG / 0-28 (Same as: l Hydrocodone 06:10: [place] Amrita nn Bitartrate 00 325/5) Do 5 MG Oral not exceed Tablet 4gm/day of [[place] acetaminop 5/325] hen. Acetaminoph 2014-06 No Notes: Akash madhu en 325 MG / 0-28 (Same as: l Hydrocodone 06:10: [place] Amrita nn Bitartrate 00 325/5) Do 5 MG Oral not exceed Tablet 4gm/day of [[place] acetaminop 5/325] hen. Acetaminoph 2014-06 No Notes: Akash madhu en 325 MG / 0-28 (Same as: l Hydrocodone 06:10: [place] Amrita nn Bitartrate 00 325/5) Do 5 MG Oral not exceed Tablet 4gm/day of [[place] acetaminop 5/325] hen. Acetaminoph 2014-06 No Notes: Akash madhu en 325 MG / 0-28 (Same as: l Hydrocodone 06:10: [place] Amrita nn Bitartrate 00 325/5) Do 5 MG Oral not exceed Tablet 4gm/day of [[place] acetaminop 5/325] hen. Acetaminoph 2014-06 No Notes: Akash madhu en 325 MG / 0-28 (Same as: l Hydrocodone 06:10: [place] Amrita nn Bitartrate 00 325/5) Do 5 MG Oral not exceed Tablet 4gm/day of [[place] acetaminop 5/325] hen. Acetaminoph 2014-06 No Notes: Akash madhu en 325 MG / 0-28 (Same as: l Hydrocodone 06:10: [place] Amrita nn Bitartrate 00 325/5) Do 5 MG Oral not exceed Tablet 4gm/day of [[place] acetaminop 5/325] hen. Acetaminoph 2014-06 No Notes: Akash madhu en 325 MG / 0-28 (Same as: l Hydrocodone 06:10: [place] Amrita nn Bitartrate 00 325/5) Do 5 MG Oral not exceed Tablet 4gm/day of [[place] acetaminop 5/325] hen. Tylenol 2014-06 No Notes: Do Memor ia 0- not exceed l 05:36: 4 gm/day. [place] 00 (Same as: Tylenol) Tylenol 2014-06 No Notes: Do Memor ia 0-28 not exceed l 05:36: 4 gm/day. [place] 00 (Same as: Tylenol) Tylenol 2014-06 No Notes: Do Memor ia 0-28 not exceed l 05:36: 4 gm/day. [place] 00 (Same as: Tylenol) Tylenol 2014-06 No Notes: Do Memor ia 0-28 not exceed l 05:36: 4 gm/day. [place] 00 (Same as: Tylenol) Tylenol 2014-06 No Notes: Do Memor ia 0-28 not exceed l 05:36: 4 gm/day. [place] 00 (Same as: Tylenol) Tylenol 2014-06 No Notes: Do Memor ia 0-28 not exceed l 05:36: 4 gm/day. [place] 00 (Same as: Tylenol) Tylenol 2014-06 No Notes: Do Memor ia 0-28 not exceed l 05:36: 4 gm/day. [place] 00 (Same as: Tylenol) Zofran 2014-06 No 4 mg, Memoria 0-28 Route: l 01:28: IVP, Drug [place] 00 form: INJ, ONCE, Dosing Weight 117.869, kg, Priority: STAT, Start date: 04/18/15 20:28:00, Stop date: 04/18/15 20:28:00 Morphine 2014-06 No 4 mg, Memoria 0-28 Route: l 01:28: IVP, Drug [place] 00 form: INJ, ONCE, Dosing Weight 117.869, kg, Priority: STAT, Start date: 04/18/15 20:28:00, Stop date: 04/18/15 20:28:00 Zofran 2014-06 No 4 mg, Memoria 0-28 Route: l 01:28: IVP, Drug [place] 00 form: INJ, ONCE, Dosing Weight 117.869, kg, Priority: STAT, Start date: 04/18/15 20:28:00, Stop date: 04/18/15 20:28:00 Morphine 2014-06 No 4 mg, Memoria 0-28 Route: l 01:28: IVP, Drug [place] 00 form: INJ, ONCE, Dosing Weight 117.869, kg, Priority: STAT, Start date: 04/18/15 20:28:00, Stop date: 04/18/15 20:28:00 Zofran 2014-06 No 4 mg, Memoria 0-28 Route: l 01:28: IVP, Drug [place] 00 form: INJ, ONCE, Dosing Weight 117.869, kg, Priority: STAT, Start date: 04/18/15 20:28:00, Stop date: 04/18/15 20:28:00 Morphine 2014- No 4 mg, Memoria 0-28 Route: l 01:28: IVP, Drug [place] 00 form: INJ, ONCE, Dosing Weight 117.869, kg, Priority: STAT, Start date: 04/18/15 20:28:00, Stop date: 04/18/15 20:28:00 Zofran 2014-06 No 4 mg, Memoria 0-28 Route: l 01:28: IVP, Drug [place] 00 form: INJ, ONCE, Dosing Weight 117.869, kg, Priority: STAT, Start date: 04/18/15 20:28:00, Stop date: 04/18/15 20:28:00 Morphine 2014- No 4 mg, Memoria 0-28 Route: l 01:28: IVP, Drug [place] 00 form: INJ, ONCE, Dosing Weight 117.869, kg, Priority: STAT, Start date: 04/18/15 20:28:00, Stop date: 04/18/15 20:28:00 Zofran 2014-06 No 4 mg, Memoria 0-28 Route: l 01:28: IVP, Drug [place] 00 form: INJ, ONCE, Dosing Weight 117.869, kg, Priority: STAT, Start date: 04/18/15 20:28:00, Stop date: 04/18/15 20:28:00 Morphine 2014- No 4 mg, Memoria 0-28 Route: l 01:28: IVP, Drug [place] 00 form: INJ, ONCE, Dosing Weight 117.869, kg, Priority: STAT, Start date: 04/18/15 20:28:00, Stop date: 04/18/15 20:28:00 Zofran 2014-06 No 4 mg, Memoria 0-28 Route: l 01:28: IVP, Drug [place] 00 form: INJ, ONCE, Dosing Weight 117.869, kg, Priority: STAT, Start date: 04/18/15 20:28:00, Stop date: 04/18/15 20:28:00 Morphine 2014-06 No 4 mg, Memoria 0-28 Route: l 01:28: IVP, Drug [place] 00 form: INJ, ONCE, Dosing Weight 117.869, kg, Priority: STAT, Start date: 04/18/15 20:28:00, Stop date: 04/18/15 20:28:00 Zofran 2014-06 No 4 mg, [facility]oria 0-28 Route: l 01:28: IVP, Drug [place] 00 form: INJ, ONCE, Dosing Weight 117.869, kg, Priority: STAT, Start date: 04/18/15 20:28:00, Stop date: 04/18/15 20:28:00 Morphine 2014-06 No 4 mg, Memoria 0-28 Route: l 01:28: IVP, Drug [place] 00 form: INJ, ONCE, Dosing Weight 117.869, kg, Priority: STAT, Start date: 04/18/15 20:28:00, Stop date: 04/18/15 20:28:00 Sodium 2014-06 No 1,000 mL, Memori a Chloride 0-28 Infuse l 0.154 01:17: Over: 1 [place] MEQ/ML 00 hr, Route: Injectable IV, ONCE, Solution Priority: STAT, Dosing Weight 117.869 kg, Start date: 04/18/15 20:17:00, Duration: 1 doses or times, Stop date: 04/18/15 20:17:00 Saline 2014-06 No Notes: Memoria Flush 0.9% 0-28 (Same as: l 01:17: BD [place] 00 Posiflush) Sodium 2014-06 No 1,000 mL, Memori a Chloride 0-28 Infuse l 0.154 01:17: Over: 1 [place] MEQ/ML 00 hr, Route: Injectable IV, ONCE, Solution Priority: STAT, Dosing Weight 117.869 kg, Start date: 04/18/15 20:17:00, Duration: 1 doses or times, Stop date: 04/18/15 20:17:00 Saline 2014-06 No Notes: [facility] Flush 0.9% 0-28 (Same as: l 01:17: BD [place] 00 Posiflush) Sodium 2014-06 No 1,000 mL, Memori a Chloride 0-28 Infuse l 0.154 01:17: Over: 1 [place] MEQ/ML 00 hr, Route: Injectable IV, ONCE, Solution Priority: STAT, Dosing Weight 117.869 kg, Start date: 04/18/15 20:17:00, Duration: 1 doses or times, Stop date: 04/18/15 20:17:00 Saline 2014-06 No Notes: Memoria Flush 0.9% 0-28 (Same as: l 01:17: BD [place] 00 Posiflush) Sodium 2014-06 No 1,000 mL, Memori a Chloride 0-28 Infuse l 0.154 01:17: Over: 1 [place] MEQ/ML 00 hr, Route: Injectable IV, ONCE, Solution Priority: STAT, Dosing Weight 117.869 kg, Start date: 04/18/15 20:17:00, Duration: 1 doses or times, Stop date: 04/18/15 20:17:00 Saline 2014-06 No Notes: Memoria Flush 0.9% 0-28 (Same as: l 01:17: BD [place] 00 Posiflush) Sodium 2014-06 No 1,000 mL, Memori a Chloride 0-28 Infuse l 0.154 01:17: Over: 1 [place] MEQ/ML 00 hr, Route: Injectable IV, ONCE, Solution Priority: STAT, Dosing Weight 117.869 kg, Start date: 04/18/15 20:17:00, Duration: 1 doses or times, Stop date: 04/18/15 20:17:00 Saline 2014-06 No Notes: Memoria Flush 0.9% 0-28 (Same as: l 01:17: BD [place] 00 Posiflush) Sodium 2014-06 No 1,000 mL, Memori a Chloride 0-28 Infuse l 0.154 01:17: Over: 1 [place] MEQ/ML 00 hr, Route: Injectable IV, ONCE, Solution Priority: STAT, Dosing Weight 117.869 kg, Start date: 04/18/15 20:17:00, Duration: 1 doses or times, Stop date: 04/18/15 20:17:00 Saline 2014-06 No Notes: Memoria Flush 0.9% 0-28 (Same as: l 01:17: BD [place] 00 Posiflush) Sodium 2014-06 No 1,000 mL, Memori a Chloride 0-28 Infuse l 0.154 01:17: Over: 1 [place] MEQ/ML 00 hr, Route: Injectable IV, ONCE, Solution Priority: STAT, Dosing Weight 117.869 kg, Start date: 04/18/15 20:17:00, Duration: 1 doses or times, Stop date: 04/18/15 20:17:00 Saline 2014-06 No Notes: Memoria Flush 0.9% 0-28 (Same as: l 01:17: BD [place] 00 Posiflush) pantoprazol No Notes: Akash madhu e 9-29 Tablet l 14:00: should not [place] 00 be chewed or crushed. (Same as: Protonix) pantoprazol No Notes: Akash madhu e 9-29 Tablet l 14:00: should not [place] 00 be chewed or crushed. (Same as: Protonix) pantoprazol No Notes: Akash madhu e 9-29 Tablet l 14:00: should not [place] 00 be chewed or crushed. (Same as: Protonix) pantoprazol No Notes: Akash madhu e 9-29 Tablet l 14:00: should not [place] 00 be chewed or crushed. (Same as: Protonix) pantoprazol No Notes: Akash madhu e 9-29 Tablet l 14:00: should not [place] 00 be chewed or crushed. (Same as: Protonix) pantoprazol No Notes: Akash madhu e 9-29 Tablet l 14:00: should not [place] 00 be chewed or crushed. (Same as: Protonix) pantoprazol No Notes: Akash madhu e 9-29 Tablet l 14:00: should not [place] 00 be chewed or crushed. (Same as: Protonix) acetaminoph No Notes: Akash madhu en-hydrocod 03-20 (Same as: l one 325 23:00: [place] mg-5 mg 00 325/5) Do oral tablet not exceed 4gm/day of acetaminop hen. acetaminoph No Notes: Akash madhu en-hydrocod 03-20 (Same as: l one 325 23:00: [place] mg-5 mg 00 325/5) Do oral tablet not exceed 4gm/day of acetaminop hen. acetaminoph No Notes: Akash madhu en-hydrocod 03-20 (Same as: l one 325 23:00: [place] Antonio mg-5 mg 00 325/5) Do oral tablet not exceed 4gm/day of acetaminop hen. acetaminoph No Notes: Akash madhu en-hydrocod 03-20 (Same as: l one 325 23:00: [place] mg-5 mg 00 325/5) Do oral tablet not exceed 4gm/day of acetaminop hen. acetaminoph No Notes: Akash madhu en-hydrocod 03-20 (Same as: l one 325 23:00: [place] mg-5 mg 00 325/5) Do oral tablet not exceed 4gm/day of acetaminop hen. acetaminoph No Notes: Akash madhu en-hydrocod 03-20 (Same as: l one 325 23:00: [place] mg-5 mg 00 325/5) Do oral tablet not exceed 4gm/day of acetaminop hen. acetaminoph No Notes: Akash madhu en-hydrocod 03-20 (Same as: l one 325 23:00: [place] mg-5 mg 00 325/5) Do oral tablet not exceed 4gm/day of acetaminop hen. Docusate No Notes: Memoria Sodium 100 9-28 (Same as: l MG Oral 22:00: Colace) Jose Antonio Capsule 00 (Do Not Crush) Docusate No Notes: Memoria Sodium 100 9-28 (Same as: l MG Oral 22:00: Colace) [place] Capsule 00 (Do Not Crush) Docusate No Notes: Memoria Sodium 100 9-28 (Same as: l MG Oral 22:00: Colace) [place] Capsule 00 (Do Not Crush) Docusate No Notes: Memoria Sodium 100 9-28 (Same as: l MG Oral 22:00: Colace) [place] Capsule 00 (Do Not Crush) Docusate No Notes: Memoria Sodium 100 - (Same as: l MG Oral 22:00: Colace) [place] Capsule 00 (Do Not Crush) Docusate No Notes: Memoria Sodium 100 - (Same as: l MG Oral 22:00: Colace) [place] Capsule 00 (Do Not Crush) Docusate No Notes: Memoria Sodium 100 - (Same as: l MG Oral 22:00: Colace) [place] Capsule 00 (Do Not Crush) Dicyclomine Yes 10 mg = 1 M emoria Hydrochlori 03-20 cap, PO, l de 10 MG 21:29: QID, # 40 [facility] Oral 00 cap, 0 Capsule Refill(s) [Bentyl] Acetaminoph Yes 1 tab, PO, Memoria en 325 MG / 03-20 Q4H, for l Hydrocodone 21:29: pain, # 24 Jose Antonio Bitartrate 00 tab, 0 10 MG Oral Refill(s) Tablet [[place] 10/325] Dicyclomine Yes 10 mg = 1 M emoria Hydrochlori 03-20 cap, PO, l de 10 MG 21:29: QID, # 40 [facility] Oral 00 cap, 0 Capsule Refill(s) [Bentyl] Acetaminoph Yes 1 tab, PO, Memoria en 325 MG / 03-20 Q4H, for l Hydrocodone 21:29: pain, # 24 Jose [place] Bitartrate 00 tab, 0 10 MG Oral Refill(s) Tablet [[place] 10/325] Dicyclomine Yes 10 mg = 1 M emoria Hydrochlori 03-20 cap, PO, l de 10 MG 21:29: QID, # 40 [facility] Oral 00 cap, 0 Capsule Refill(s) [Bentyl] Acetaminoph Yes 1 tab, PO, Memoria en 325 MG / 03-20 Q4H, for l Hydrocodone 21:29: pain, # 24 Jose Antonio Bitartrate 00 tab, 0 10 MG Oral Refill(s) Tablet [[place] 10/325] Dicyclomine Yes 10 mg = 1 M emoria Hydrochlori 9-28 cap, PO, l de 10 MG 21:29: QID, # 40 [facility] Oral 00 cap, 0 Capsule Refill(s) [Bentyl] Acetaminoph Yes 1 tab, PO, Memoria en 325 MG / 03-20 Q4H, for l Hydrocodone 21:29: pain, # 24 Jose [place] Bitartrate 00 tab, 0 10 MG Oral Refill(s) Tablet [[place] 10/325] Dicyclomine Yes 10 mg = 1 M emoria Hydrochlori 9-28 cap, PO, l de 10 MG 21:29: QID, # 40 [facility] Oral 00 cap, 0 Capsule Refill(s) [Bentyl] Acetaminoph Yes 1 tab, PO, Memoria en 325 MG / 03-20 Q4H, for l Hydrocodone 21:29: pain, # 24 [place] Bitartrate 00 tab, 0 10 MG Oral Refill(s) Tablet [[place] 10/325] Dicyclomine Yes 10 mg = 1 M emoria Hydrochlori 28 cap, PO, l de 10 MG 21:29: QID, # 40 [facility] Oral 00 cap, 0 Capsule Refill(s) [Bentyl] Acetaminoph Yes 1 tab, PO, Memoria en 325 MG / 03-20 Q4H, for l Hydrocodone 21:29: pain, # 24 [place] Bitartrate 00 tab, 0 10 MG Oral Refill(s) Tablet [[place] 10/325] Dicyclomine Yes 10 mg = 1 M emoria Hydrochlori -28 cap, PO, l de 10 MG 21:29: QID, # 40 [facility] Oral 00 cap, 0 Capsule Refill(s) [Bentyl] Acetaminoph Yes 1 tab, PO, Memoria en 325 MG / 03-20 Q4H, for l Hydrocodone 21:29: pain, # 24 Jose Antonio Bitartrate 00 tab, 0 10 MG Oral Refill(s) Tablet [[place] 10/325] Bentyl No Notes: Memoria 03-20 (Same as: l 18:00: Bentyl) [place] 00 Bentyl No Notes: Memoria 03-20 (Same as: l 18:00: Bentyl) [place] 00 Bentyl No Notes: Memoria 9- (Same as: l 18:00: Bentyl) [place] Bentyl No Notes: Memoria 9 (Same as: l 18:00: Bentyl) [place] Bentyl No Notes: Memoria 9 (Same as: l 18:00: Bentyl) [place] Bentyl No Notes: Memoria 9- (Same as: l 18:00: Bentyl) [place] Bentyl No Notes: Memoria 9 (Same as: l 18:00: Bentyl) [place] acetaminoph No Notes: Akash madhu en-hydrocod 03-20 (Same as: l one 325 17:41: [place] mg-5 mg 00 325/5) Do oral tablet not exceed 4gm/day of acetaminop hen. acetaminoph No Notes: Akash madhu en-hydrocod 03-20 (Same as: l one 325 17:41: [place] mg-5 mg 00 325/5) Do oral tablet not exceed 4gm/day of acetaminop hen. acetaminoph No Notes: Akash madhu en-hydrocod 03-20 (Same as: l one 325 17:41: [place] mg-5 mg 00 325/5) Do oral tablet not exceed 4gm/day of acetaminop hen. acetaminoph No Notes: Akash madhu en-hydrocod 03-20 (Same as: l one 325 17:41: [place] mg-5 mg 00 325/5) Do oral tablet not exceed 4gm/day of acetaminop hen. acetaminoph No Notes: Akash madhu en-hydrocod 03-20 (Same as: l one 325 17:41: [place] mg-5 mg 00 325/5) Do oral tablet not exceed 4gm/day of acetaminop hen. acetaminoph No Notes: Akash madhu en-hydrocod 03-20 (Same as: l one 325 17:41: [place] mg-5 mg 00 325/5) Do oral tablet not exceed 4gm/day of acetaminop hen. acetaminoph No Notes: Akash madhu en-hydrocod 03-20 (Same as: l one 325 17:41: [place] mg-5 mg 00 325/5) Do oral tablet not exceed 4gm/day of acetaminop hen. Ondansetron No Notes: Akash madhu 03-20 (Same as: l 15:29: Zofran) Naloxone No Notes: Memoria 03-20 Same as l 15:29: Narcan Albuterol No Notes: SEE Me moria 0.83 MG/ML 03-20 RT l Inhalant 15:29: DOCUMENTAT Her thomas Solution 00 ION (Same as: Proventil) Ephedrine No Notes: Memori a 03-20 (Same as: l 15:29: ePHEDrine [place] 00 Sulfate) Diphenhydra No Notes: Akash madhu mine 03-20 (Same as: l 15:29: Benadryl) Atropine No 0.2 mg, Memori a 03-20 0.5 mL, l 15:29: Route: IVP, Drug form: INJ, Q5Min, Dosing Weight 100, kg, PRN Other -See Comment, as needed; for symptomati c pulse rate < 80% of mean 50 BPM, Start date: 03/20/14 10:29:00, Duration: 30 day, Stop date: 04/19/14 10:28:00 Meperidine No Notes: Memor ia 03-20 (Same as: l 15:29: Demerol) "Use Precaution in Elderly, Seizure disorders, and Renal impairment " Flumazenil No Notes: Memor ia 03-20 (Same as: l 15:29: Romazicon) Morphine No Notes: Memoria 03-20 (Same l 15:29: as:MORPhin e Sulfate) Acetaminoph No Notes: Akash madhu en 03-20 Infuse l 15:29: over 15 [place] 00 minutes Do not exceed 4gm/day of acetaminop hen Calcium No 1,000 mL, Memor ia Chloride 03-20 Rate: 125 l 0.0014 15:29: ml/hr, [place] MEQ/ML / 00 Infuse Potassium over: 8 Chloride hr, Route: 0.004 IV, Dosing MEQ/ML / Weight 100 Sodium kg, Total Chloride Volume: 0.103 1,000, MEQ/ML / Start Sodium date: Lactate 03/20/14 0.028 10:29:00, MEQ/ML Duration: Injectable 30 day, Solution Stop date: 04/19/14 10:28:00 Ondansetron No Notes: Akash madhu 03-20 (Same as: l 15:29: Zofran) Naloxone No Notes: Memoria 03-20 Same as l 15:29: Narcan Albuterol No Notes: SEE Me moria 0.83 MG/ML 03-20 RT l Inhalant 15:29: DOCUMENTAT Her thomas Solution 00 ION (Same as: Proventil) Ephedrine No Notes: Memori a 03-20 (Same as: l 15:29: ePHEDrine Sulfate) Diphenhydra No Notes: Akash madhu mine 03-20 (Same as: l 15:29: Benadryl) Atropine No 0.2 mg, Memori a 03-20 0.5 mL, l 15:29: Route: 00 IVP, Drug form: INJ, Q5Min, Dosing Weight 100, kg, PRN Other -See Comment, as needed; for symptomati c pulse rate < 80% of mean 50 BPM, Start date: 03/20/14 10:29:00, Duration: 30 day, Stop date: 04/19/14 10:28:00 Meperidine No Notes: Memor ia 03-20 (Same as: l 15:29: Demerol) "Use Precaution in Elderly, Seizure disorders, and Renal impairment " Flumazenil No Notes: Memor ia 03-20 (Same as: l 15:29: Romazicon) Morphine No Notes: Memoria 03-20 (Same l 15:29: as:MORPhin e Sulfate) Acetaminoph No Notes: Akash madhu en 03-20 Infuse l 15:29: over 15 [place] 00 minutes Do not exceed 4gm/day of acetaminop hen Calcium No 1,000 mL, Memor ia Chloride 03-20 Rate: 125 l 0.0014 15:29: ml/hr, [place] MEQ/ML / 00 Infuse Potassium over: 8 Chloride hr, Route: 0.004 IV, Dosing MEQ/ML / Weight 100 Sodium kg, Total Chloride Volume: 0.103 1,000, MEQ/ML / Start Sodium date: Lactate 03/20/14 0.028 10:29:00, MEQ/ML Duration: Injectable 30 day, Solution Stop date: 04/19/14 10:28:00 Ondansetron No Notes: Akash madhu 03-20 (Same as: l 15:29: Zofran) Naloxone No Notes: Memoria 03-20 Same as l 15:29: Narcan Albuterol No Notes: SEE Me moria 0.83 MG/ML 03-20 RT l Inhalant 15:29: DOCUMENTAT Her thomas Solution 00 ION (Same as: Proventil) Ephedrine No Notes: Memori a 03-20 (Same as: l 15:29: ePHEDrine Sulfate) Diphenhydra No Notes: Akash madhu mine 03-20 (Same as: l 15:29: Benadryl) Atropine No 0.2 mg, Memori a 03-20 0.5 mL, l 15:29: Route: 00 IVP, Drug form: INJ, Q5Min, Dosing Weight 100, kg, PRN Other -See Comment, as needed; for symptomati c pulse rate < 80% of mean 50 BPM, Start date: 03/20/14 10:29:00, Duration: 30 day, Stop date: 04/19/14 10:28:00 Meperidine No Notes: Memor ia 03-20 (Same as: l 15:29: Demerol) "Use Precaution in Elderly, Seizure disorders, and Renal impairment " Flumazenil No Notes: Memor ia 03-20 (Same as: l 15:29: Romazicon) Morphine No Notes: Memoria 03-20 (Same l 15:29: as:MORPhin e Sulfate) Acetaminoph No Notes: Akash madhu en 03-20 Infuse l 15:29: over 15 [place] 00 minutes Do not exceed 4gm/day of acetaminop hen Calcium No 1,000 mL, Memor ia Chloride 03-20 Rate: 125 l 0.0014 15:29: ml/hr, [place] MEQ/ML / 00 Infuse Potassium over: 8 Chloride hr, Route: 0.004 IV, Dosing MEQ/ML / Weight 100 Sodium kg, Total Chloride Volume: 0.103 1,000, MEQ/ML / Start Sodium date: Lactate 03/20/14 0.028 10:29:00, MEQ/ML Duration: Injectable 30 day, Solution Stop date: 04/19/14 10:28:00 Ondansetron No Notes: Akash madhu 03-20 (Same as: l 15:29: Zofran) Naloxone No Notes: Memoria 03-20 Same as l 15:29: Narcan Albuterol No Notes: SEE Me moria 0.83 MG/ML 03-20 RT l Inhalant 15:29: DOCUMENTAT Her thomas Solution 00 ION (Same as: Proventil) Ephedrine No Notes: Memori a 03-20 (Same as: l 15:29: ePHEDrine Sulfate) Diphenhydra No Notes: Akash madhu mine 03-20 (Same as: l 15:29: Benadryl) Atropine No 0.2 mg, Memori a 03-20 0.5 mL, l 15:29: Route: [place] 00 IVP, Drug form: INJ, Q5Min, Dosing Weight 100, kg, PRN Other -See Comment, as needed; for symptomati c pulse rate < 80% of mean 50 BPM, Start date: 03/20/14 10:29:00, Duration: 30 day, Stop date: 04/19/14 10:28:00 Meperidine No Notes: Memor ia 03-20 (Same as: l 15:29: Demerol) "Use Precaution in Elderly, Seizure disorders, and Renal impairment " Flumazenil No Notes: Memor ia 03-20 (Same as: l 15:29: Romazicon) [place] 00 Morphine No Notes: Memoria 03-20 (Same l 15:29: as:MORPhin e Sulfate) Acetaminoph No Notes: Akash madhu en 03-20 Infuse l 15:29: over 15 [place] 00 minutes Do not exceed 4gm/day of acetaminop hen Calcium No 1,000 mL, Memor ia Chloride 03-20 Rate: 125 l 0.0014 15:29: ml/hr, [place] MEQ/ML / 00 Infuse Potassium over: 8 Chloride hr, Route: 0.004 IV, Dosing MEQ/ML / Weight 100 Sodium kg, Total Chloride Volume: 0.103 1,000, MEQ/ML / Start Sodium date: Lactate 03/20/14 0.028 10:29:00, MEQ/ML Duration: Injectable 30 day, Solution Stop date: 04/19/14 10:28:00 Ondansetron No Notes: Akash madhu 03-20 (Same as: l 15:29: Zofran) Naloxone No Notes: Memoria 03-20 Same as l 15:29: Narcan Albuterol No Notes: SEE Me moria 0.83 MG/ML 03-20 RT l Inhalant 15:29: DOCUMENTAT Her thomas Solution 00 ION (Same as: Proventil) Ephedrine No Notes: Memori a 03-20 (Same as: l 15:29: ePHEDrine Sulfate) Diphenhydra No Notes: Akash madhu mine 03-20 (Same as: l 15:29: Benadryl) Atropine No 0.2 mg, Memori a 03-20 0.5 mL, l 15:29: Route: [place] 00 IVP, Drug form: INJ, Q5Min, Dosing Weight 100, kg, PRN Other -See Comment, as needed; for symptomati c pulse rate < 80% of mean 50 BPM, Start date: 03/20/14 10:29:00, Duration: 30 day, Stop date: 04/19/14 10:28:00 Meperidine No Notes: Memor ia 03-20 (Same as: l 15:29: Demerol) "Use Precaution in Elderly, Seizure disorders, and Renal impairment " Flumazenil No Notes: Memor ia 03-20 (Same as: l 15:29: Romazicon) Morphine No Notes: Memoria 03-20 (Same l 15:29: as:MORPhin e Sulfate) Acetaminoph No Notes: Akash madhu en 03-20 Infuse l 15:29: over 15 [place] 00 minutes Do not exceed 4gm/day of acetaminop hen Calcium No 1,000 mL, Memor ia Chloride 03-20 Rate: 125 l 0.0014 15:29: ml/hr, [place] MEQ/ML / 00 Infuse Potassium over: 8 Chloride hr, Route: 0.004 IV, Dosing MEQ/ML / Weight 100 Sodium kg, Total Chloride Volume: 0.103 1,000, MEQ/ML / Start Sodium date: Lactate 03/20/14 0.028 10:29:00, MEQ/ML Duration: Injectable 30 day, Solution Stop date: 04/19/14 10:28:00 Ondansetron No Notes: Akash madhu 03-20 (Same as: l 15:29: Zofran) Naloxone No Notes: Memoria 03-20 Same as l 15:29: Narcan Albuterol No Notes: SEE Me moria 0.83 MG/ML 03-20 RT l Inhalant 15:29: DOCUMENTAT Her thomas Solution 00 ION (Same as: Proventil) Ephedrine No Notes: Memori a 03-20 (Same as: l 15:29: ePHEDrine Sulfate) Diphenhydra No Notes: Akash madhu mine 03-20 (Same as: l 15:29: Benadryl) Atropine No 0.2 mg, Memori a 03-20 0.5 mL, l 15:29: Route: [place] 00 IVP, Drug form: INJ, Q5Min, Dosing Weight 100, kg, PRN Other -See Comment, as needed; for symptomati c pulse rate < 80% of mean 50 BPM, Start date: 03/20/14 10:29:00, Duration: 30 day, Stop date: 04/19/14 10:28:00 Meperidine No Notes: Memor ia 03-20 (Same as: l 15:29: Demerol) "Use Precaution in Elderly, Seizure disorders, and Renal impairment " Flumazenil No Notes: Memor ia 03-20 (Same as: l 15:29: Romazicon) Morphine No Notes: Memoria 03-20 (Same l 15:29: as:MORPhin e Sulfate) Acetaminoph No Notes: Akash madhu en 03-20 Infuse l 15:29: over 15 minutes Do not exceed 4gm/day of acetaminop hen Calcium No 1,000 mL, Memor ia Chloride 03-20 Rate: 125 l 0.0014 15:29: ml/hr, [place] MEQ/ML / 00 Infuse Potassium over: 8 Chloride hr, Route: 0.004 IV, Dosing MEQ/ML / Weight 100 Sodium kg, Total Chloride Volume: 0.103 1,000, MEQ/ML / Start Sodium date: Lactate 03/20/14 0.028 10:29:00, MEQ/ML Duration: Injectable 30 day, Solution Stop date: 04/19/14 10:28:00 Ondansetron No Notes: Akash madhu 03-20 (Same as: l 15:29: Zofran) Naloxone No Notes: Memoria 03-20 Same as l 15:29: Narcan Albuterol No Notes: SEE Me moria 0.83 MG/ML 03-20 RT l Inhalant 15:29: DOCUMENTAT Her thomas Solution 00 ION (Same as: Proventil) Ephedrine No Notes: Memori a 03-20 (Same as: l 15:29: ePHEDrine Sulfate) Diphenhydra No Notes: Akash madhu mine 03-20 (Same as: l 15:29: Benadryl) Atropine No 0.2 mg, Memori a 03-20 0.5 mL, l 15:29: Route: IVP, Drug form: INJ, Q5Min, Dosing Weight 100, kg, PRN Other -See Comment, as needed; for symptomati c pulse rate < 80% of mean 50 BPM, Start date: 03/20/14 10:29:00, Duration: 30 day, Stop date: 04/19/14 10:28:00 Meperidine No Notes: Memor ia 03-20 (Same as: l 15:29: Demerol) "Use Precaution in Elderly, Seizure disorders, and Renal impairment " Flumazenil No Notes: Memor ia 03-20 (Same as: l 15:29: Romazicon) [place] 00 Morphine No Notes: Memoria 03-20 (Same l 15:29: as:MORPhin e Sulfate) Acetaminoph No Notes: Akash madhu en 03-20 Infuse l 15:29: over 15 00 minutes Do not exceed 4gm/day of acetaminop hen Calcium No 1,000 mL, Memor ia Chloride 03-20 Rate: 125 l 0.0014 15:29: ml/hr, MEQ/ML / 00 Infuse Potassium over: 8 Chloride hr, Route: 0.004 IV, Dosing MEQ/ML / Weight 100 Sodium kg, Total Chloride Volume: 0.103 1,000, MEQ/ML / Start Sodium date: Lactate 03/20/14 0.028 10:29:00, MEQ/ML Duration: Injectable 30 day, Solution Stop date: 04/19/14 10:28:00 Acetaminoph No Route: PO, Memoria en 325 MG / 03-20 Drug Form: l Hydrocodone 15:28: TAB, Nimesh n Bitartrate 00 Dosing 5 MG Oral Weight Tablet 100, kg, [[place] Q6H, PRN 5/325] as needed for pain, Start date: 03/20/14 10:28:00, Duration: 30 day, Stop date: 04/19/14 10:27:00 Acetaminoph No Route: PO, Memoria en 325 MG / 03-20 Drug Form: l Hydrocodone 15:28: TAB, Nimesh n Bitartrate 00 Dosing 5 MG Oral Weight Tablet 100, kg, [[place] Q6H, PRN 5/325] as needed for pain, Start date: 03/20/14 10:28:00, Duration: 30 day, Stop date: 04/19/14 10:27:00 Acetaminoph No Route: PO, Memoria en 325 MG / 03-20 Drug Form: l Hydrocodone 15:28: TAB, Nimesh n Bitartrate 00 Dosing 5 MG Oral Weight Tablet 100, kg, [[place] Q6H, PRN 5/325] as needed for pain, Start date: 03/20/14 10:28:00, Duration: 30 day, Stop date: 04/19/14 10:27:00 Acetaminoph No Route: PO, Memoria en 325 MG / 03-20 Drug Form: l Hydrocodone 15:28: TAB, Nimesh n Bitartrate 00 Dosing 5 MG Oral Weight Tablet 100, kg, [[place] Q6H, PRN 5/325] as needed for pain, Start date: 03/20/14 10:28:00, Duration: 30 day, Stop date: 04/19/14 10:27:00 Acetaminoph No Route: PO, Memoria en 325 MG / 03-20 Drug Form: l Hydrocodone 15:28: TAB, Nimesh n Bitartrate 00 Dosing 5 MG Oral Weight Tablet 100, kg, [[place] Q6H, PRN 5/325] as needed for pain, Start date: 03/20/14 10:28:00, Duration: 30 day, Stop date: 04/19/14 10:27:00 Acetaminoph No Route: PO, Memoria en 325 MG / 03-20 Drug Form: l Hydrocodone 15:28: TAB, Nimesh n Bitartrate 00 Dosing 5 MG Oral Weight Tablet 100, kg, [[place] Q6H, PRN 5/325] as needed for pain, Start date: 03/20/14 10:28:00, Duration: 30 day, Stop date: 04/19/14 10:27:00 Acetaminoph No Route: PO, Memoria en 325 MG / 03-20 Drug Form: l Hydrocodone 15:28: TAB, Nimesh n Bitartrate 00 Dosing 5 MG Oral Weight Tablet 100, kg, [[place] Q6H, PRN 5/325] as needed for pain, Start date: 03/20/14 10:28:00, Duration: 30 day, Stop date: 04/19/14 10:27:00 Phenergan No Notes: Memori a 03-20 (Same as: l 15:27: Phenergan) Phenergan No Notes: Memori a 03-20 (Same as: l 15:27: Phenergan) Phenergan No Notes: Memori a 03-20 (Same as: l 15:27: Phenergan) Phenergan No Notes: Memori a 03-20 (Same as: l 15:27: Phenergan) Phenergan No Notes: Memori a 03-20 (Same as: l 15:27: Phenergan) Phenergan No Notes: Memori a 03-20 (Same as: l 15:27: Phenergan) Phenergan No Notes: Memori a 03-20 (Same as: l 15:27: Phenergan) Saline No Notes: Memoria Flush 0.9% 03-20 (Same as: l 15:24: BD Posiflush) Promethazin No 12.5 mg, Me moria e 03-20 Route: l 15:24: IVPB, Q4H, Dosing Weight 100, kg, PRN Nausea & Vomiting, Start date: 03/20/14 10:24:00, Duration: 30 day, Stop date: 04/19/14 10:23:00 Acetaminoph No Notes: Akash madhu en 325 MG / 03-20 (Same as: l Hydrocodone 15:24: [place] Amrita nn Bitartrate 00 325/5) Do 5 MG Oral not exceed Tablet 4gm/day of acetaminop hen. Acetaminoph No Notes: Do M emoria en 03-20 not exceed l 15:24: 4 gm/day. (Same as: Tylenol) Ondansetron No Notes: Akash madhu 03-20 (Same as: l 15:24: Zofran) Saline No Notes: Memoria Flush 0.9% 03-20 (Same as: l 15:24: BD Posiflush) Promethazin No 12.5 mg, Me moria e 03-20 Route: l 15:24: IVPB, Q4H, Dosing Weight 100, kg, PRN Nausea & Vomiting, Start date: 03/20/14 10:24:00, Duration: 30 day, Stop date: 04/19/14 10:23:00 Acetaminoph No Notes: Akash madhu en 325 MG / 03-20 (Same as: l Hydrocodone 15:24: [place] Amrita nn Bitartrate 00 325/5) Do 5 MG Oral not exceed Tablet 4gm/day of acetaminop hen. Acetaminoph No Notes: Do M emoria en 03-20 not exceed l 15:24: 4 gm/day. (Same as: Tylenol) Ondansetron No Notes: Akash madhu 03-20 (Same as: l 15:24: Zofran) Saline No Notes: Memoria Flush 0.9% 03-20 (Same as: l 15:24: BD Posiflush) Promethazin No 12.5 mg, Me moria e 03-20 Route: l 15:24: IVPB, Q4H, Dosing Weight 100, kg, PRN Nausea & Vomiting, Start date: 03/20/14 10:24:00, Duration: 30 day, Stop date: 04/19/14 10:23:00 Acetaminoph No Notes: Akash madhu en 325 MG / 03-20 (Same as: l Hydrocodone 15:24: [place] Amrita nn Bitartrate 00 325/5) Do 5 MG Oral not exceed Tablet 4gm/day of acetaminop hen. Acetaminoph No Notes: Do M emoria en 03-20 not exceed l 15:24: 4 gm/day. [place] 00 (Same as: Tylenol) Ondansetron No Notes: Akash madhu 03-20 (Same as: l 15:24: Zofran) Saline No Notes: Memoria Flush 0.9% 03-20 (Same as: l 15:24: BD [place] 00 Posiflush) Promethazin No 12.5 mg, Me moria e 03-20 Route: l 15:24: IVPB, Q4H, Dosing Weight 100, kg, PRN Nausea & Vomiting, Start date: 03/20/14 10:24:00, Duration: 30 day, Stop date: 04/19/14 10:23:00 Acetaminoph No Notes: Akash madhu en 325 MG / 03-20 (Same as: l Hydrocodone 15:24: [place] Amrita nn Bitartrate 00 325/5) Do 5 MG Oral not exceed Tablet 4gm/day of acetaminop hen. Acetaminoph No Notes: Do M emoria en 03-20 not exceed l 15:24: 4 gm/day. [place] 00 (Same as: Tylenol) Ondansetron No Notes: Akash madhu 03-20 (Same as: l 15:24: Zofran) Saline No Notes: Memoria Flush 0.9% 03-20 (Same as: l 15:24: BD [place] 00 Posiflush) Promethazin No 12.5 mg, Me moria e 03-20 Route: l 15:24: IVPB, Q4H, Dosing Weight 100, kg, PRN Nausea & Vomiting, Start date: 03/20/14 10:24:00, Duration: 30 day, Stop date: 04/19/14 10:23:00 Acetaminoph No Notes: Akash madhu en 325 MG / 03-20 (Same as: l Hydrocodone 15:24: [place] Amrita nn Bitartrate 00 325/5) Do 5 MG Oral not exceed Tablet 4gm/day of acetaminop hen. Acetaminoph No Notes: Do M emoria en 03-20 not exceed l 15:24: 4 gm/day. [place] 00 (Same as: Tylenol) Ondansetron No Notes: Akash madhu 03-20 (Same as: l 15:24: Zofran) [place] 00 Saline No Notes: Memoria Flush 0.9% 03-20 (Same as: l 15:24: BD [place] 00 Posiflush) Promethazin No 12.5 mg, Me moria e 03-20 Route: l 15:24: IVPB, Q4H, Dosing Weight 100, kg, PRN Nausea & Vomiting, Start date: 03/20/14 10:24:00, Duration: 30 day, Stop date: 04/19/14 10:23:00 Acetaminoph No Notes: Akash madhu en 325 MG / 03-20 (Same as: l Hydrocodone 15:24: [place] Amrita nn Bitartrate 00 325/5) Do 5 MG Oral not exceed Tablet 4gm/day of acetaminop hen. Acetaminoph No Notes: Do M emoria en 03-20 not exceed l 15:24: 4 gm/day. [place] 00 (Same as: Tylenol) Ondansetron No Notes: Akash madhu 03-20 (Same as: l 15:24: Zofran) Saline No Notes: Memoria Flush 0.9% 03-20 (Same as: l 15:24: BD Jose Antonio 00 Posiflush) Promethazin No 12.5 mg, Me moria e 03-20 Route: l 15:24: IVPB, Q4H, Dosing Weight 100, kg, PRN Nausea & Vomiting, Start date: 03/20/14 10:24:00, Duration: 30 day, Stop date: 04/19/14 10:23:00 Acetaminoph No Notes: Akash madhu en 325 MG / 03-20 (Same as: l Hydrocodone 15:24: [place] Amrita nn Bitartrate 00 325/5) Do 5 MG Oral not exceed Tablet 4gm/day of acetaminop hen. Acetaminoph No Notes: Do M emoria en 03-20 not exceed l 15:24: 4 gm/day. [place] 00 (Same as: Tylenol) Ondansetron No Notes: Akash madhu 03-20 (Same as: l 15:24: Zofran) Levofloxaci No 750 mg, Mem oria n 03-20 Route: l 13:06: IVPB, [place] 00 ONCE, Dosing Weight 100, kg, Priority: STAT, Start date: 03/20/14 8:06:00, Stop date: 03/20/14 8:06:00 Levofloxaci 2014-0 No 750 mg, Mem oria n 03-20 Route: l 13:06: IVPB, [place] 00 ONCE, Dosing Weight 100, kg, Priority: STAT, Start date: 03/20/14 8:06:00, Stop date: 03/20/14 8:06:00 Levofloxaci 2014-0 No 750 mg, Mem oria n 03-20 Route: l 13:06: IVPB, [place] 00 ONCE, Dosing Weight 100, kg, Priority: STAT, Start date: 03/20/14 8:06:00, Stop date: 03/20/14 8:06:00 Levofloxaci 2014-0 No 750 mg, Mem oria n 03-20 Route: l 13:06: IVPB, [place] 00 ONCE, Dosing Weight 100, kg, Priority: STAT, Start date: 03/20/14 8:06:00, Stop date: 03/20/14 8:06:00 Levofloxaci 2014-0 No 750 mg, Mem oria n 03-20 Route: l 13:06: IVPB, [place] 00 ONCE, Dosing Weight 100, kg, Priority: STAT, Start date: 03/20/14 8:06:00, Stop date: 03/20/14 8:06:00 Levofloxaci 2014-0 No 750 mg, Mem oria n 03-20 Route: l 13:06: IVPB, [place] 00 ONCE, Dosing Weight 100, kg, Priority: STAT, Start date: 03/20/14 8:06:00, Stop date: 03/20/14 8:06:00 Levofloxaci 2014-0 No 750 mg, Mem oria n 03-20 Route: l 13:06: IVPB, [place] 00 ONCE, Dosing Weight 100, kg, Priority: STAT, Start date: 03/20/14 8:06:00, Stop date: 03/20/14 8:06:00 Bentyl 2013-0 No 0 Memoria 03-20 Refill(s) l 12:05: [place] 00 Bentyl 2014-0 No 0 Memoria - Refill(s) l 12:05: [place] Bentyl 2013-0 No 0 Memoria - Refill(s) l 12:05: [place] Bentyl 2013-0 No 0 Memoria - Refill(s) l 12:05: [place] Bentyl 2013-0 No 0 Memoria - Refill(s) l 12:05: [place] 00 Bentyl 2013-0 No 0 Memoria - Refill(s) l 12:05: [place] 00 Bentyl 2013-0 No 0 Memoria - Refill(s) l 12:05: Ondansetron 2013-0 No 4 mg, Memor ia 03-20 Route: l 11:50: IVP, ONCE, Dosing Weight 100, kg, Priority: STAT, Start date: 03/20/14 6:50:00, Stop date: 03/20/14 6:50:00 Hydromorpho 2013-0 No 1 mg, Memor ia ne 03-20 Route: l 11:50: IVP, ONCE, Dosing Weight 100, kg, Priority: STAT, Start date: 03/20/14 6:50:00, Stop date: 03/20/14 6:50:00 Saline 2013-0 No Notes: Memoria Flush 0.9% 03-20 (Same as: l 11:50: BD Posiflush) Sodium 0 No 1,000 mL, Memori a Chloride 03-20 Infuse l 0.154 11:50: Over: 1 Jose Antonio MEQ/ML 00 hr, Route: Injectable IV, ONCE, Solution Priority: STAT, Dosing Weight 100 kg, Start date: 03/20/14 6:50:00, Duration: 1 doses or times, Stop date: 03/20/14 6:50:00 Ondansetron 2013-0 No 4 mg, Mem[facility] ia 03-20 Route: l 11:50: IVP, ONCE, Dosing Weight 100, kg, Priority: STAT, Start date: 03/20/14 6:50:00, Stop date: 03/20/14 6:50:00 Hydromorpho 2013-0 No 1 mg, Memor ia ne 03-20 Route: l 11:50: IVP, ONCE, Dosing Weight 100, kg, Priority: STAT, Start date: 03/20/14 6:50:00, Stop date: 03/20/14 6:50:00 Saline 2013-0 No Notes: Memoria Flush 0.9% 9-28 (Same as: l 11:50: BD [place] 00 Posiflush) Sodium 2013-0 No 1,000 mL, Memori a Chloride 9-28 Infuse l 0.154 11:50: Over: 1 Jose Antonio MEQ/ML 00 hr, Route: Injectable IV, ONCE, Solution Priority: STAT, Dosing Weight 100 kg, Start date: 03/20/14 6:50:00, Duration: 1 doses or times, Stop date: 03/20/14 6:50:00 Ondansetron 2013-0 No 4 mg, Mem[facility] ia 03-20 Route: l 11:50: IVP, ONCE, Dosing Weight 100, kg, Priority: STAT, Start date: 03/20/14 6:50:00, Stop date: 03/20/14 6:50:00 Hydromorpho 2013-0 No 1 mg, Memor ia ne 03-20 Route: l 11:50: IVP, ONCE, Dosing Weight 100, kg, Priority: STAT, Start date: 03/20/14 6:50:00, Stop date: 03/20/14 6:50:00 Saline 2013-0 No Notes: Memoria Flush 0.9% 9-28 (Same as: l 11:50: BD Jose Antonio 00 Posiflush) Sodium 2013-0 No 1,000 mL, Memori a Chloride 9-28 Infuse l 0.154 11:50: Over: 1 Jose Antonio MEQ/ML 00 hr, Route: Injectable IV, ONCE, Solution Priority: STAT, Dosing Weight 100 kg, Start date: 03/20/14 6:50:00, Duration: 1 doses or times, Stop date: 03/20/14 6:50:00 Ondansetron 2013-0 No 4 mg, Mem[facility] ia 03-20 Route: l 11:50: IVP, ONCE, Dosing Weight 100, kg, Priority: STAT, Start date: 03/20/14 6:50:00, Stop date: 03/20/14 6:50:00 Hydromorpho 2014-0 No 1 mg, Memor ia ne 03-20 Route: l 11:50: IVP, ONCE, [place] 00 Dosing Weight 100, kg, Priority: STAT, Start date: 03/20/14 6:50:00, Stop date: 03/20/14 6:50:00 Saline 2013-0 No Notes: [facility]oria Flush 0.9% 9-28 (Same as: l 11:50: BD Jose Antonio 00 Posiflush) Sodium 2013-0 No 1,000 mL, Memori a Chloride 9- Infuse l 0.154 11:50: Over: 1 [place] MEQ/ML 00 hr, Route: Injectable IV, ONCE, Solution Priority: STAT, Dosing Weight 100 kg, Start date: 03/20/14 6:50:00, Duration: 1 doses or times, Stop date: 03/20/14 6:50:00 Ondansetron 2013-0 No 4 mg, Mem[facility] ia 03-20 Route: l 11:50: IVP, ONCE, Jose Antonio 00 Dosing Weight 100, kg, Priority: STAT, Start date: 03/20/14 6:50:00, Stop date: 03/20/14 6:50:00 Hydromorpho 2013-0 No 1 mg, Memor ia ne 03-20 Route: l 11:50: IVP, ONCE, Dosing Weight 100, kg, Priority: STAT, Start date: 03/20/14 6:50:00, Stop date: 03/20/14 6:50:00 Saline 2013-0 No Notes: [facility]oria Flush 0.9% 9-28 (Same as: l 11:50: BD Jose Antonio 00 Posiflush) Sodium 2013-0 No 1,000 mL, Memori a Chloride 9-28 Infuse l 0.154 11:50: Over: 1 Jose Antonio MEQ/ML 00 hr, Route: Injectable IV, ONCE, Solution Priority: STAT, Dosing Weight 100 kg, Start date: 03/20/14 6:50:00, Duration: 1 doses or times, Stop date: 03/20/14 6:50:00 Ondansetron 2013-0 No 4 mg, Mem[facility] ia 03-20 Route: l 11:50: IVP, ONCE, [place] 00 Dosing Weight 100, kg, Priority: STAT, Start date: 03/20/14 6:50:00, Stop date: 03/20/14 6:50:00 Hydromorpho 2013-0 No 1 mg, Memor ia ne 03-20 Route: l 11:50: IVP, ONCE, Jose [place] 00 Dosing Weight 100, kg, Priority: STAT, Start date: 03/20/14 6:50:00, Stop date: 03/20/14 6:50:00 Saline 0 No Notes: [facility] Flush 0.9% 9-28 (Same as: l 11:50: BD [place] 00 Posiflush) Sodium No 1,000 mL, Memori a Chloride 9 Infuse l 0.154 11:50: Over: 1 [place] MEQ/ML 00 hr, Route: Injectable IV, ONCE, Solution Priority: STAT, Dosing Weight 100 kg, Start date: 03/20/14 6:50:00, Duration: 1 doses or times, Stop date: 03/20/14 6:50:00 Ondansetron 0 No 4 mg, [facility] ia 03-20 Route: l 11:50: IVP, ONCE, Dosing Weight 100, kg, Priority: STAT, Start date: 03/20/14 6:50:00, Stop date: 03/20/14 6:50:00 Hydromorpho 0 No 1 mg, Memor ia ne 03-20 Route: l 11:50: IVP, ONCE, Dosing Weight 100, kg, Priority: STAT, Start date: 03/20/14 6:50:00, Stop date: 03/20/14 6:50:00 Saline 0 No Notes: [facility] Flush 0.9% 9-28 (Same as: l 11:50: BD Jose Antonio 00 Posiflush) Sodium No 1,000 mL, Memori a Chloride 9- Infuse l 0.154 11:50: Over: 1 Jose Antonio MEQ/ML 00 hr, Route: Injectable IV, ONCE, Solution Priority: STAT, Dosing Weight 100 kg, Start date: 03/20/14 6:50:00, Duration: 1 doses or times, Stop date: 03/20/14 6:50:00 Acetaminoph 2013-0 Yes 1-2 tab, Me moria en 325 MG / 9-10 PO, Q4-6H, l Hydrocodone 00:43: Pain, # 15 [place] Bitartrate 00 tab, 0 5 MG Oral Refill(s) Tablet [[place] 5/325] Promethazin Yes 25 mg = 1 M emoria e 9-10 tab, PO, l Hydrochlori 00:43: Q4H, Nimesh n de 25 MG 00 Nausea, # Oral Tablet 15 tab, 0 [Phenergan] Refill(s) Acetaminoph Yes 1-2 tab, Me moria en 325 MG / 9-10 PO, Q4-6H, l Hydrocodone 00:43: Pain, # 15 [place] Bitartrate 00 tab, 0 5 MG Oral Refill(s) Tablet [[place] 5/325] Promethazin Yes 25 mg = 1 M emoria e 9-10 tab, PO, l Hydrochlori 00:43: Q4H, Nimesh n de 25 MG 00 Nausea, # Oral Tablet 15 tab, 0 [Phenergan] Refill(s) Acetaminoph Yes 1-2 tab, Me moria en 325 MG / 9-10 PO, Q4-6H, l Hydrocodone 00:43: Pain, # 15 [place] Bitartrate 00 tab, 0 5 MG Oral Refill(s) Tablet [[place] 5/325] Promethazin Yes 25 mg = 1 M emoria e 9-10 tab, PO, l Hydrochlori 00:43: Q4H, Nimesh n de 25 MG 00 Nausea, # Oral Tablet 15 tab, 0 [Phenergan] Refill(s) Acetaminoph Yes 1-2 tab, Me moria en 325 MG / 9-10 PO, Q4-6H, l Hydrocodone 00:43: Pain, # 15 [place] Bitartrate 00 tab, 0 5 MG Oral Refill(s) Tablet [[place] 5/325] Promethazin Yes 25 mg = 1 M emoria e 9-10 tab, PO, l Hydrochlori 00:43: Q4H, Nimesh n de 25 MG 00 Nausea, # Oral Tablet 15 tab, 0 [Phenergan] Refill(s) Acetaminoph Yes 1-2 tab, Me moria en 325 MG / 9-10 PO, Q4-6H, l Hydrocodone 00:43: Pain, # 15 [place] Bitartrate 00 tab, 0 5 MG Oral Refill(s) Tablet [[place] 5/325] Promethazin Yes 25 mg = 1 M emoria e 9-10 tab, PO, l Hydrochlori 00:43: Q4H, Nimesh n de 25 MG 00 Nausea, # Oral Tablet 15 tab, 0 [Phenergan] Refill(s) Acetaminoph Yes 1-2 tab, Me moria en 325 MG / 9-10 PO, Q4-6H, l Hydrocodone 00:43: Pain, # 15 [place] Bitartrate 00 tab, 0 5 MG Oral Refill(s) Tablet [[place] 5/325] Promethazin Yes 25 mg = 1 M emoria e 9-10 tab, PO, l Hydrochlori 00:43: Q4H, Nimesh n de 25 MG 00 Nausea, # Oral Tablet 15 tab, 0 [Phenergan] Refill(s) Acetaminoph Yes 1-2 tab, Me moria en 325 MG / 9-10 PO, Q4-6H, l Hydrocodone 00:43: Pain, # 15 [place] Bitartrate 00 tab, 0 5 MG Oral Refill(s) Tablet [[place] 5/325] Promethazin Yes 25 mg = 1 M emoria e 9-10 tab, PO, l Hydrochlori 00:43: Q4H, Nimesh n de 25 MG 00 Nausea, # Oral Tablet 15 tab, 0 [Phenergan] Refill(s) Zofran ODT No Notes: Memor ia 03-01 (Same as: l 22:10: Zofran [place] 00 ODT) Tylenol No Notes: Do Memor ia 03-01 not exceed l 22:10: 4 gm/day. [place] 00 (Same as: Tylenol) Zofran ODT No Notes: [facility] ia 03-01 (Same as: l 22:10: Zofran [place] 00 ODT) Tylenol No Notes: Do Memor ia 03-01 not exceed l 22:10: 4 gm/day. [place] 00 (Same as: Tylenol) Zofran ODT No Notes: [facility] ia 9- (Same as: l 22:10: Zofran [place] 00 ODT) Tylenol No Notes: Do Memor ia 9- not exceed l 22:10: 4 gm/day. (Same as: Tylenol) Zofran ODT No Notes: [facility] ia 9- (Same as: l 22:10: Zofran [place] 00 ODT) Tylenol No Notes: Do Memor ia 9- not exceed l 22:10: 4 gm/day. (Same as: Tylenol) Zofran ODT No Notes: [facility] 9- (Same as: l 22:10: Zofran [place] 00 ODT) Tylenol No Notes: Do Memor ia 9- not exceed l 22:10: 4 gm/day. (Same as: Tylenol) Zofran ODT No Notes: [facility] 9- (Same as: l 22:10: Zofran [place] 00 ODT) Tylenol No Notes: Do Memor [facility] 9- not exceed l 22:10: 4 gm/day. (Same as: Tylenol) Zofran ODT No Notes: [facility] 9- (Same as: l 22:10: Zofran [place] 00 ODT) Tylenol No Notes: Do [facility]or [facility] 9- not exceed l 22:10: 4 gm/day. (Same as: Tylenol) meclizine 2012-0 Yes [place] 25 mg, PO, M emoria 25 mg oral 5-12 [place] Q6H, PRN, l tablet 04:32: [place] 30 tab, Nimesh n 44 Dizziness, Substituti on Allowed meclizine 2012-0 Yes [place] 25 mg, PO, M emoria 25 mg oral 5-12 [place] Q6H, PRN, l tablet 04:32: [place] 30 tab, Nimesh n 44 Dizziness, Substituti on Allowed meclizine 2012-0 Yes [place] 25 mg, PO, M emoria 25 mg oral 5-12 [place] Q6H, PRN, l tablet 04:32: [place] 30 tab, Nimesh n 44 Dizziness, Substituti on Allowed meclizine 2012-0 Yes [place] 25 mg, PO, M emoria 25 mg oral 5-12 [place] Q6H, PRN, l tablet 04:32: [place] 30 tab, Nimesh n 44 Dizziness, Substituti on Allowed meclizine 2012- Yes [place] 25 mg, PO, M emoria 25 mg oral 5-12 [place] Q6H, PRN, l tablet 04:32: [place] 30 tab, Nimesh n 44 Dizziness, Substituti on Allowed meclizine 2012- Yes [place] 25 mg, PO, M emoria 25 mg oral 5-12 [place] Q6H, PRN, l tablet 04:32: [place] 30 tab, Nimesh n 44 Dizziness, Substituti on Allowed meclizine 2012- Yes [place] 25 mg, PO, M emoria 25 mg oral 5-12 [place] Q6H, PRN, l tablet 04:32: [place] 30 tab, Nimesh n 44 Dizziness, Substituti on Allowed Zofran ODT 2012- Yes [place] 4 mg, 1 Mem oria 4 mg oral 5-12 [place] tab, PO, l tablet, 04:32: [place] TID, PRN, Her thomas disintegrat 31 10 tab, ing Nausea and Vomiting, Substituti on Allowed Zofran ODT 2012- Yes [place] 4 mg, 1 Mem oria 4 mg oral 5-12 [place] tab, PO, l tablet, 04:32: [place] TID, PRN, Her thomas disintegrat 31 10 tab, ing Nausea and Vomiting, Substituti on Allowed Zofran ODT 2012-0 Yes [place] 4 mg, 1 Mem oria 4 mg oral 5-12 [place] tab, PO, l tablet, 04:32: [place] TID, PRN, Her thomas disintegrat 31 10 tab, ing Nausea and Vomiting, Substituti on Allowed Zofran ODT 2012- Yes [place] 4 mg, 1 Mem oria 4 mg oral 5-12 [place] tab, PO, l tablet, 04:32: [place] TID, PRN, Her thomas disintegrat 31 10 tab, ing Nausea and Vomiting, Substituti on Allowed Zofran ODT 2013-0 Yes [place] 4 mg, 1 Mem oria 4 mg oral 5-12 [place] tab, PO, l tablet, 04:32: [place] TID, PRN, Her thomas disintegrat 31 10 tab, ing Nausea and Vomiting, Substituti on Allowed Zofran ODT 2012-0 Yes [place] 4 mg, 1 Mem oria 4 mg oral 5-12 [place] tab, PO, l tablet, 04:32: [place] TID, PRN, Her thomas disintegrat 31 10 tab, ing Nausea and Vomiting, Substituti on Allowed Zofran ODT 2012-0 Yes [place] 4 mg, 1 Mem oria 4 mg oral 5-12 [place] tab, PO, l tablet, 04:32: [place] TID, PRN, Her thomas disintegrat 31 10 tab, ing Nausea and Vomiting, Substituti on Allowed meclizine 2012-0 No [place] 50 mg, Memor ia 5-12 [place] Route: PO, l 01:39: [place] Drug form: Amrita nn 00 TAB, ONCE, Dosing Weight 105.455, kg, Priority: STAT, Start date: 10/31/12 20:39:00, Stop date: 10/31/12 20:39:00 ondansetron 2012-0 No [place] 4 mg, Akash madhu 5-12 [place] Route: l 01:39: [place] IVP, ONCE, Amrita nn 00 Dosing Weight 105.455, kg, Priority: STAT, Start date: 10/31/12 20:39:00, Stop date: 10/31/12 20:39:00 Saline 2012-0 No [place] 5 ml, Memoria Flush 0.9% 5-12 [place] Route: l 01:39: [place] IVP, Drug Nimesh n 00 Form: INJ, Dosing Weight 105.455, kg, PRN, PRN Line Flush, Start date: 10/31/12 20:39:00, Duration: 30 day, Stop date: 11/30/12 20:38:00 Sodium 2012-0 No [place] 1,000 mL, Memor ia Chloride 5-12 [place] Rate: l 0.9% 01:39: [place] 1,000 [place] (Bolus) IV 00 ml/hr, 1,000 mL Infuse over: 1 hr, Route: IV, Dosing Weight 105.455 kg, Total Volume: 1,000, Priority: STAT, Start date: 10/31/12 20:39:00, Duration: 1 doses or times, Stop date: 10/31/12 21:38:00 meclizine 2012-0 No [place] 50 mg, Memor ia 5-12 [place] Route: PO, l 01:39: [place] Drug form: Amrita nn 00 TAB, ONCE, Dosing Weight 105.455, kg, Priority: STAT, Start date: 10/31/12 20:39:00, Stop date: 10/31/12 20:39:00 ondansetron 2012-0 No [place] 4 mg, Akash madhu 5-12 [place] Route: l 01:39: [place] IVP, ONCE, Amrita nn 00 Dosing Weight 105.455, kg, Priority: STAT, Start date: 10/31/12 20:39:00, Stop date: 10/31/12 20:39:00 Saline 2012-0 No Code[place] 5 ml, Memoria Flush 0.9% 5-12 [place] Route: l 01:39: [place] IVP, Drug Nimesh n 00 Form: INJ, Dosing Weight 105.455, kg, PRN, PRN Line Flush, Start date: 10/31/12 20:39:00, Duration: 30 day, Stop date: 11/30/12 20:38:00 Sodium 2013-0 No [place] 1,000 mL, Memor ia Chloride 5-12 [place] Rate: l 0.9% 01:39: [place] 1,000 Jose Antonio (Bolus) IV 00 ml/hr, 1,000 mL Infuse over: 1 hr, Route: IV, Dosing Weight 105.455 kg, Total Volume: 1,000, Priority: STAT, Start date: 10/31/12 20:39:00, Duration: 1 doses or times, Stop date: 10/31/12 21:38:00 meclizine 2012-0 No [place] 50 mg, Memor ia 5-12 [place] Route: PO, l 01:39: [place] Drug form: Amrita nn 00 TAB, ONCE, Dosing Weight 105.455, kg, Priority: STAT, Start date: 10/31/12 20:39:00, Stop date: 10/31/12 20:39:00 ondansetron 2012-0 No [place] 4 mg, Akash madhu 5-12 [place] Route: l 01:39: [place] IVP, ONCE, Amrita nn 00 Dosing Weight 105.455, kg, Priority: STAT, Start date: 10/31/12 20:39:00, Stop date: 10/31/12 20:39:00 Saline 2012-0 No [place] 5 ml, Memoria Flush 0.9% 5-12 [place] Route: l 01:39: [place] IVP, Drug Nimesh n 00 Form: INJ, Dosing Weight 105.455, kg, PRN, PRN Line Flush, Start date: 10/31/12 20:39:00, Duration: 30 day, Stop date: 11/30/12 20:38:00 Sodium 2012-0 No [place] 1,000 mL, Memor ia Chloride 5-12 [place] Rate: l 0.9% 01:39: [place] 1,000 Jose Antonio (Bolus) IV 00 ml/hr, 1,000 mL Infuse over: 1 hr, Route: IV, Dosing Weight 105.455 kg, Total Volume: 1,000, Priority: STAT, Start date: 10/31/12 20:39:00, Duration: 1 doses or times, Stop date: 10/31/12 21:38:00 meclizine 2012-0 No [place] 50 mg, Memor ia 5-12 [place] Route: PO, l 01:39: [place] Drug form: Amrit[place] nn 00 TAB, ONCE, Dosing Weight 105.455, kg, Priority: STAT, Start date: 10/31/12 20:39:00, Stop date: 10/31/12 20:39:00 ondansetron 2012-0 No [place] 4 mg, Akash madhu 5-12 [place] Route: l 01:39: [place] IVP, ONCE, Amrita nn 00 Dosing Weight 105.455, kg, Priority: STAT, Start date: 10/31/12 20:39:00, Stop date: 10/31/12 20:39:00 Saline 2012-0 No [place] 5 ml, Memoria Flush 0.9% 5-12 [place] Route: l 01:39: [place] IVP, Drug Nimesh n 00 Form: INJ, Dosing Weight 105.455, kg, PRN, PRN Line Flush, Start date: 10/31/12 20:39:00, Duration: 30 day, Stop date: 11/30/12 20:38:00 Sodium 2013-0 No [place] 1,000 mL, Memor ia Chloride 5-12 [place] Rate: l 0.9% 01:39: [place] 1,000 Jose Antonio (Bolus) IV 00 ml/hr, 1,000 mL Infuse over: 1 hr, Route: IV, Dosing Weight 105.455 kg, Total Volume: 1,000, Priority: STAT, Start date: 10/31/12 20:39:00, Duration: 1 doses or times, Stop date: 10/31/12 21:38:00 meclizine 2012-0 No [place] 50 mg, Memor ia 5-12 [place] Route: PO, l 01:39: [place] Drug form: Amrit[place] nn 00 TAB, ONCE, Dosing Weight 105.455, kg, Priority: STAT, Start date: 10/31/12 20:39:00, Stop date: 10/31/12 20:39:00 ondansetron 2012-0 No [place] 4 mg, Akash madhu 5-12 [place] Route: l 01:39: [place] IVP, ONCE, Amrita nn 00 Dosing Weight 105.455, kg, Priority: STAT, Start date: 10/31/12 20:39:00, Stop date: 10/31/12 20:39:00 Saline 2013-0 No Code[place] 5 ml, Memoria Flush 0.9% 5-12 [place] Route: l 01:39: [place] IVP, Drug Nimesh n 00 Form: INJ, Dosing Weight 105.455, kg, PRN, PRN Line Flush, Start date: 10/31/12 20:39:00, Duration: 30 day, Stop date: 11/30/12 20:38:00 Sodium 2013-0 No [place] 1,000 mL, Memor ia Chloride 5-12 [place] Rate: l 0.9% 01:39: [place] 1,000 Jose Antonio (Bolus) IV 00 ml/hr, 1,000 mL Infuse over: 1 hr, Route: IV, Dosing Weight 105.455 kg, Total Volume: 1,000, Priority: STAT, Start date: 10/31/12 20:39:00, Duration: 1 doses or times, Stop date: 10/31/12 21:38:00 meclizine 2012-0 No [place] 50 mg, Memor ia 5-12 [place] Route: PO, l 01:39: [place] Drug form: Amrita nn 00 TAB, ONCE, Dosing Weight 105.455, kg, Priority: STAT, Start date: 10/31/12 20:39:00, Stop date: 10/31/12 20:39:00 ondansetron 2012-0 No [place] 4 mg, Akash madhu 5-12 [place] Route: l 01:39: [place] IVP, ONCE, Amrita nn 00 Dosing Weight 105.455, kg, Priority: STAT, Start date: 10/31/12 20:39:00, Stop date: 10/31/12 20:39:00 Saline 2013-0 No Code[place] 5 ml, Memoria Flush 0.9% 5-12 [place] Route: l 01:39: [place] IVP, Drug Nimesh n 00 Form: INJ, Dosing Weight 105.455, kg, PRN, PRN Line Flush, Start date: 10/31/12 20:39:00, Duration: 30 day, Stop date: 11/30/12 20:38:00 Sodium 2012-0 No [place] 1,000 mL, Memor ia Chloride 5-12 [place] Rate: l 0.9% 01:39: [place] 1,000 Jose Antonio (Bolus) IV 00 ml/hr, 1,000 mL Infuse over: 1 hr, Route: IV, Dosing Weight 105.455 kg, Total Volume: 1,000, Priority: STAT, Start date: 10/31/12 20:39:00, Duration: 1 doses or times, Stop date: 10/31/12 21:38:00 meclizine 2012-0 No [place]y 50 mg, Memor ia 5-12 [place] Route: PO, l 01:39: [place] Drug form: Amrita nn 00 TAB, ONCE, Dosing Weight 105.455, kg, Priority: STAT, Start date: 10/31/12 20:39:00, Stop date: 10/31/12 20:39:00 ondansetron 2012-0 No [place] 4 mg, Akash madhu 5-12 [place] Route: l 01:39: [place] IVP, ONCE, Amrita nn 00 Dosing Weight 105.455, kg, Priority: STAT, Start date: 10/31/12 20:39:00, Stop date: 10/31/12 20:39:00 Saline 2012-0 No Codey 5 ml, Memoria Flush 0.9% 5-12 [place] Route: l 01:39: [place] IVP, Drug Nimesh n 00 Form: INJ, Dosing Weight 105.455, kg, PRN, PRN Line Flush, Start date: 10/31/12 20:39:00, Duration: 30 day, Stop date: 11/30/12 20:38:00 Sodium 2012- No [place] 1,000 mL, Memor ia Chloride 5-12 [place] Rate: l 0.9% 01:39: [place] 1,000 Jose Antonio (Bolus) IV 00 ml/hr, 1,000 mL Infuse over: 1 hr, Route: IV, Dosing Weight 105.455 kg, Total Volume: 1,000, Priority: STAT, Start date: 10/31/12 20:39:00, Duration: 1 doses or times, Stop date: 10/31/12 21:38:00 [place] 2012-0 Yes Substituti Akash madhu 0.5/35 5-12 on l 01:26: Allowed, Jose Antonio Taylor e Nortrel Yes Substituti Akash madhu 0.5/35 5-12 on l 01:26: [facility], [facility]- Yes Substituti Akash madhu 0.5/35 5-12 on l 01:26: [facility], [facility]- Yes Substituti Akash madhu 0.5/35 5-12 on l 01:26: Allowed, Jose Antonio Taylor e [place] 2012- Yes Substituti Akash madhu 0.5/35 5-12 on l 01:26: [facility], [facility]- Yes Substituti Akash madhu 0.5/35 5-12 on l 01:26: Allowed, Jose Antonio [facility]lain Mainten[facility] e Nortrel Yes Substituti Akash madhu 0.5/35 5-12 on l 01:26: Allowed, [place] 38 Maintenanc e acetaminoph 2010-06 Yes Mars L 1-2, PO, Memoria en-hydrocod 1-13 Mary Q4H, PRN, l one 500 17:48: 25 caplet, Herm wesley mg-5 mg 39 Pain Score oral tablet 4-6, Substituti on Allowed, Maintenanc e, TAB acetaminoph 2010-06 Yes Mars L 1-2, PO, Memoria en-hydrocod 1-13 Mary Q4H, PRN, l one 500 17:48: 25 caplet, Herm wesley mg-5 mg 39 Pain Score oral tablet 4-6, Substituti on Allowed, Maintenanc e, TAB acetaminoph 2010-06 Yes Mars L 1-2, PO, Memoria en-hydrocod 1-13 Mary Q4H, PRN, l one 500 17:48: 25 caplet, Herm wesley mg-5 mg 39 Pain Score oral tablet 4-6, Substituti on Allowed, Maintenanc e, TAB acetaminoph 2010-06 Yes Mars L 1-2, PO, Memoria en-hydrocod 1-13 Mary Q4H, PRN, l one 500 17:48: 25 caplet, Herm wesley mg-5 mg 39 Pain Score oral tablet 4-6, Substituti on Allowed, Maintenanc e, TAB acetaminoph 2010-06 Yes Mars L 1-2, PO, Memoria en-hydrocod 1-13 Mary Q4H, PRN, l one 500 17:48: 25 caplet, Herm wesley mg-5 mg 39 Pain Score oral tablet 4-6, Substituti on Allowed, Maintenanc e, TAB acetaminoph 2010-06 Yes Mars L 1-2, PO, Memoria en-hydrocod 1-13 Mary Q4H, PRN, l one 500 17:48: 25 caplet, Herm wesley mg-5 mg 39 Pain Score oral tablet 4-6, Substituti on Allowed, Maintenanc e, TAB acetaminoph 2010-06 Yes Mars L 1-2, PO, Memoria en-hydrocod 1-13 Mary Q4H, PRN, l one 500 17:48: 25 Curt oneil wesley mg-5 mg 39 Pain Score oral tablet 4-6, Substituti on Allowed, Maintenanc e, TAB 1 2010-06 Yes 1 tab, PO, M emoria Plus 1 oral 1-13 Daily, 90 l tablet 17:13: tab, [place] 30 Substituti on Allowed, Maintenanc e, TAB 1 2010-06 Yes 1 tab, PO, M emoria Plus 1 oral 1-13 Daily, 90 l tablet 17:13: tab, [place] 30 Substituti on Allowed, Maintenanc e, TAB 1 2010-06 Yes 1 tab, PO, M emoria Plus 1 oral 1-13 Daily, 90 l tablet 17:13: tab, [place] 30 Substituti on Allowed, Maintenanc e, TAB 1 2010-06 Yes 1 tab, PO, M emoria Plus 1 oral 1-13 Daily, 90 l tablet 17:13: tab, Jose [place] 30 Substituti on Allowed, Maintenanc e, TAB 1 2010-06 Yes 1 tab, PO, M emoria Plus 1 oral 1-13 Daily, 90 l tablet 17:13: tab, [place] 30 Substituti on Allowed, Maintenanc e, TAB 1 2010-06 Yes 1 tab, PO, M emoria Plus 1 oral 1-13 Daily, 90 l tablet 17:13: tab, [place] 30 Substituti on Allowed, Maintenanc e, TAB 1 2010-06 Yes 1 tab, PO, M emoria Plus 1 oral 1-13 Daily, 90 l tablet 17:13: tab, Jose Antonio 30 Substituti on Allowed, Maintenanc e, TAB Prenate 2010-06 No Substituti Akash madhu Plus oral 1-13 on l tablet 17:13: Allowed, [place] 25 Maintenanc e Prenate 2010-06 No Substituti Akash madhu Plus oral 1-13 on l tablet 17:13: Allowed, [place] 25 Maintenanc e Prenate 2010-06 No Substituti Akash madhu Plus oral 1-13 on l tablet 17:13: Allowed, [place] 25 Maintenanc e Prenate 2010-06 No Substituti Akash madhu Plus oral 1-13 on l tablet 17:13: Allowed, Jose Antonio 25 Maintenanc e Prenate 2010-06 No Substituti Akash madhu Plus oral 1-13 on l tablet 17:13: Allowed, [place] 25 Maintenanc e Prenate 2010-06 No Substituti Akash madhu Plus oral 1-13 on l tablet 17:13: Allowed, [place] 25 Maintenanc e Prenate 2010-06 No Substituti Akash madhu Plus oral 1-13 on l tablet 17:13: Allowed, [place] 25 Maintenanc e Prenate 2010-06 No Substituti Akash madhu Plus oral 1-13 on l tablet 17:13: Allowed, [place] 20 Maintenanc e Prenate 2010-06 No Substituti Akash madhu Plus oral 1-13 on l tablet 17:13: Allowed, [place] 20 Maintenanc e Prenate 2010-06 No Substituti Akash madhu Plus oral 1-13 on l tablet 17:13: Allowed, [place] 20 Maintenanc e Prenate 2010-06 No Substituti Akash madhu Plus oral 1-13 on l tablet 17:13: Allowed, [place] 20 Maintenanc e Prenate 2010-06 No Substituti Akash madhu Plus oral 1-13 on l tablet 17:13: Allowed, [place] 20 Maintenanc e Prenate 2010-06 No Substituti Akash madhu Plus oral 1-13 on l tablet 17:13: Allowed, [place] 20 Maintenanc e Prenate 2010-06 No Substituti Akash madhu Plus oral 1-13 on l tablet 17:13: Allowed, [place] Antonio 20 Maintenanc e Ancef 2010-06 Yes Mars L Route: IV, M emoria 07-04 [facility] Drug form: l 15:22: INJ, ONCE, Start date: 05/04/11 9:22:00, Stop date: 05/04/11 9:22:00 Ancef 2010-06 Yes Mars L Route: IV, M emoria 07-04 Mary Drug form: l 15:22: INJ, ONCE, Start date: 05/04/11 9:22:00, Stop date: 05/04/11 9:22:00 Ancef 2010-06 Yes Mars L Route: IV, M emoria 07-04 Mary Drug form: l 15:22: INJ, ONCE, Start date: 05/04/11 9:22:00, Stop date: 05/04/11 9:22:[address] [facility] 2010-06 Yes Mars Tracey Route: IV, Eb emoria 1-12 Mary Drug form: l 15:22: INJ, ONCE, Start date: 05/04/11 9:22:00, Stop date: 05/04/11 9:22:[address] [facility] 2010-06 Yes Mars Tracey Route: IV, Eb navarroria 12 Mary Drug form: l 15:22: INJ, ONCE, Start date: 05/04/11 9:22:00, Stop date: 05/04/11 9:22:[address] [facility] 2010-06 Yes Mars Tracey Route: IV, Eb emoria 12 Mary Drug form: l 15:22: INJ, ONCE, Start date: 05/04/11 9:22:00, Stop date: 05/04/11 9:22:[address] [facility] 2010-06 Yes Mars Tracey Route: IV, Eb navarroria 12 Mary Drug form: l 15:22: INJ, ONCE, Start date: 05/04/11 9:22:00, Stop date: 05/04/11 9:22:00 2010-06 No Kirsten-Roxane 1 tab, M emoria Multivitami 1-11 B Route: PO, l ns oral 15:00: [place] [facility] Form: Jose Antonio tablet 00 h TAB, Daily, Start date: 05/03/11 9:00:00, Duration: 30 day, Stop date: 06/01/11 9:00:00 2010-06 No Kirsten-Rox[place] 1 tab, M emoria Multivitami 1-11 B Route: PO, l ns oral 15:00: [place] Drug Form: [place] tablet 00 h TAB, Daily, Start date: 05/03/11 9:00:00, Duration: 30 day, Stop date: 06/01/11 9:00:00 2010-06 No Kirsten-Roxane 1 tab, M emoria Multivitami 1-11 B Route: PO, l ns oral 15:00: [facility] Drug Form: Jose Antonio tablet 00 h TAB, Daily, Start date: 05/03/11 9:00:00, Duration: 30 day, Stop date: 06/01/11 9:00:00 2010-06 No Kirsten-Roxane 1 tab, M emoria Multivitami 1-11 B Route: PO, l ns oral 15:00: [facility] Drug Form: Jose Antonio tablet 00 h TAB, Daily, Start date: 05/03/11 9:00:00, Duration: 30 day, Stop date: 06/01/11 9:00:00 2010-06 No Kirsten-Roxane 1 tab, M emoria Multivitami 07-03 B Route: PO, l ns oral 15:00: [facility] Drug Form: Jose Antonio tablet 00 h TAB, Daily, Start date: 05/03/11 9:00:00, Duration: 30 day, Stop date: 06/01/11 9:00:00 2010-06 No Kirsten-Roxane 1 tab, M emoria Multivitami 07-03 B Route: PO, l ns oral 15:00: [facility] Drug Form: Jose Antonio tablet 00 h TAB, Daily, Start date: 05/03/11 9:00:00, Duration: 30 day, Stop date: 06/01/11 9:00:00 2010-06 No Kirsten-Roxane 1 tab, M emoria Multivitami 07-03 B Route: PO, l ns oral 15:00: [facility] Drug Form: Jose Antonio tablet 00 h TAB, Daily, Start date: 05/03/11 9:00:00, Duration: 30 day, Stop date: 06/01/11 9:00:00 penicillin 2010-06 Yes Edgardo Velez 5,000,000 Memoria G potassium 1-11 [place] unit, 100 l 12:02: mL, Route: [place] 00 IVPB, Drug form: PDR/INJ, ONCE, Start date: 05/03/11 6:02:00, Stop date: 05/03/11 6:02:00 penicillin 2010-06 Yes Edgardo Velez 5,000,000 [facility] G potassium 1-11 [place] unit, 100 l 12:02: mL, Route: [place] 00 IVPB, Drug form: PDR/INJ, ONCE, Start date: 05/03/11 6:02:00, Stop date: 05/03/11 6:02:00 penicillin 2010-06 Yes Edgardo Velez 5,000,000 [facility] G potassium 1-11 [place] unit, 100 l 12:02: mL, Route: [place] 00 IVPB, Drug form: PDR/INJ, ONCE, Start date: 05/03/11 6:02:00, Stop date: 05/03/11 6:02:00 penicillin 2010-06 Yes Edgardo Velez 5,000,000 Mem[facility] G potassium 1-11 [place] unit, 100 l 12:02: mL, Route: [place] 00 IVPB, Drug form: PDR/INJ, ONCE, Start date: 05/03/11 6:02:00, Stop date: 05/03/11 6:02:00 penicillin 2010-06 Yes Edgardo Velez 5,000,000 Mem[facility] G potassium 1-11 [place] unit, 100 l 12:02: mL, Route: [place] 00 IVPB, Drug form: PDR/INJ, ONCE, Start date: 05/03/11 6:02:00, Stop date: 05/03/11 6:02:00 penicillin 2010-06 Yes Edgardo Velez 5,000,000 [facility] G potassium 1-11 [place] unit, 100 l 12:02: mL, Route: [place] 00 IVPB, Drug form: PDR/INJ, ONCE, Start date: 05/03/11 6:02:00, Stop date: 05/03/11 6:02:00 penicillin 2010-06 Yes Edgardo Velez 5,000,000 [facility] G potassium 1-11 [place] unit, 100 l 12:02: mL, Route: [place] 00 IVPB, Drug form: PDR/INJ, ONCE, Start date: 05/03/11 6:02:00, Stop date: 05/03/11 6:02:00 M-M-R II 2010-06 No Kirsten-Roxane 0.5 ml, [facility] 07-03 B Route: l 09:00: [facility] SUB-Q, Amrita nn 00 h ONCALL, Start date: 05/03/11 3:00:00, Duration: 1 doses or times M-M-R II 2010-06 No Kirsten-Roxane 0.5 ml, [facility] 07-03 B Route: l 09:00: [facility] SUB-Q, Amrita nn 00 h ONCALL, Start date: 05/03/11 3:00:00, Duration: 1 doses or times M-M-R II 2010-06 No Kirsten-Roxane 0.5 ml, [facility] 07-03 B Route: l 09:00: [facility] SUB-Q, Amrita nn 00 h ONCALL, Start date: 05/03/11 3:00:00, Duration: 1 doses or times M-M-R II 2010-06 No Kirsten-Roxane 0.5 ml, [facility] 07-03 B Route: l 09:00: [facility] SUB-Q, Amrita nn 00 h ONCALL, Start date: 05/03/11 3:00:00, Duration: 1 doses or times M-M-R II 2010-06 No Kirsten-Roxane 0.5 ml, [facility] 07-03 Route: l 09:00: [facility] SUB-Q, Amrita nn 00 h ONCALL, Start date: 05/03/11 3:00:00, Duration: 1 doses or times M-M-R II 2010-06 No Kirsten-Roxane 0.5 ml, [facility] 07-03 B Route: l 09:00: [facility] SUB-Q, Amrita nn 00 h ONCALL, Start date: 05/03/11 3:00:00, Duration: 1 doses or times M-M-R II 2010-06 No Kirsten-Roxane 0.5 ml, [facility] 07-03 Route: l 09:00: [facility] SUB-Q, Amrita nn 00 h ONCALL, Start date: 05/03/11 3:00:00, Duration: 1 doses or times ondansetron 2010-06 No Kirsten-Roxane 4 mg, 2 [facility] 07-03 B mL, Route: l 08:02: [facility] IVP, Drug He rmann 00 h form: INJ, Q8H, PRN Nausea & Vomiting, Start date: 05/03/11 2:02:00, Duration: 30 day, Stop date: 06/02/11 2:01:00 docusate 2010-06 No Kirsten-Roxane 100 mg, 1 [facility] 07-03 B cap, l 08:02: [facility] Route: PO, H [place] 00 h Drug form: CAP, BID, PRN Constipati on, Start date: 05/03/11 2:02:00, Duration: 30 day, Stop date: 06/02/11 2:01:00 zolpidem 2010-06 No Kirsten-Roxane 5 mg, 1 [facility]oria -11 B tab, l 08:02: [facility] Route: PO, H ermann 00 h Drug form: TAB, Bedtime, PRN Sleep, Start date: 05/03/11 2:02:00, Duration: 30 day, Stop date: 06/02/11 2:01:00 lanolin 2010-06 No Kirsten-Roxane 1 appl, M emoria topical 07-03 B Route: l 08:02: [facility] TOP, PRN, He rmann 00 h Drug form: OINT PRN Other -See Comment, Start date: 05/03/11 2:02:00, Duration: 30 day, Stop date: 06/02/11 2:01:00 Lactated 2010-06 No Kirsten-Roxane 20 unit, [facility] Ringers 07-03 B 1,000 mL, l 1000ml+Sesar 08:02: [facility] Rate: 125 [place] juno 20 00 h ml/hr, units IV Infuse (Premix) 20 over: 8 unit hr, Route: IV, Total Volume: 1,000 mL, Start date: 05/03/11 2:02:00, Duration: 2 day, Stop date: 05/05/11 2:01:00, Replace Every: 8 hr ibuprofen 2010-06 No Kirsten-Roxane 800 mg, 2 [facility] 07-03 B tab, l 08:02: [facility] Route: PO, H ermann 00 h Drug form: TAB, Q8H, PRN Pain, Start date: 05/03/11 2:02:00, Duration: 30 day, Stop date: 06/02/11 2:01:00 acetaminoph 2010-06 No Kirsten-Roxane 650 mg, 2 [facility]oria en - B tab, l 08:02: [facility] Route: PO, H ermann 00 h Drug form: TAB, Q4H, PRN Headache, Start date: 05/03/11 2:02:00, Duration: 30 day, Stop date: 06/02/11 2:01:00 Dermoplast 2010-06 No Kirsten-Roxane 1 spray, [facility] 20% topical 07-03 Route: l spray 08:02: [facility] TOP, PRN, H ermann 00 h Drug form: SPRY PRN Irritation , Start date: 05/03/11 2:02:00, Duration: 30 day, Stop date: 06/02/11 2:01:00 methylergon 2010-06 No Kirsten-Roxane 0.2 mg, 1 [facility] ovine 07-03 B mL, Route: l 08:02: [facility] IM, Drug Her thomas 00 h form: INJ, PRN, PRN Other -See Comment, Start date: 05/03/11 2:02:00, Duration: 30 day, Stop date: 06/02/11 2:01:00 acetaminoph 2010-06 No Kirsten-Roxane 2 tab, [facility] en-hydrocod 07-03 Route: PO, l one 325 08:02: [facility] Drug Form: [place] mg-5 mg 00 h TAB, Q4H, oral tablet PRN Pain Score 4-6, Start date: 05/03/11 2:02:00, Duration: 30 day, Stop date: 06/02/11 2:01:00 Lactated 2010-06 No Kirsten-Roxane 1,000 mL, [facility] Ringers IV 07-03 B Rate: 100 l 1,000 mL 08:02: [facility] ml/hr, H ermann 00 h Infuse over: 10 hr, Route: IV, Total Volume: 1,000, Start date: 05/03/11 2:02:00, Duration: 30 day, Stop date: 06/02/11 2:01:00, PRN to maintain IV access Lactated 2010-06 No Kirsten-Roxane 20 unit, [facility] Ringers 07-03 B 1,000 mL, l 1000ml+Oxyt 08:02: [facility] Rate: 125 Jose Antonio ocin 20 00 h ml/hr, units IV Infuse (Premix) 20 over: 8 unit hr, Route: IV, Total Volume: 1,000, Start date: 05/03/11 2:02:00, Duration: 2 day, Stop date: 05/05/11 2:01:00, Replace Every: 8 hr, Replace every 24 hrs; PRN for moderate to severe post bleeding ondansetron 2010-06 No Kirsten-Roxane 4 mg, 2 [facility] 1-11 B mL, Route: l 08:02: [facility] IVP, Drug He rmann 00 h form: INJ, Q8H, PRN Nausea & Vomiting, Start date: 05/03/11 2:02:00, Duration: 30 day, Stop date: 06/02/11 2:01:00 docusate 2010-06 No Kirsten-Roxane 100 mg, 1 [facility] 07-03 B cap, l 08:02: [facility] Route: PO, H ermann 00 h Drug form: CAP, BID, PRN Constipati on, Start date: 05/03/11 2:02:00, Duration: 30 day, Stop date: 06/02/11 2:01:00 zolpidem 2010-06 No Kirsten-Roxane 5 mg, 1 [facility] 07-03 B tab, l 08:02: [facility] Route: PO, H ermann 00 h Drug form: TAB, Bedtime, PRN Sleep, Start date: 05/03/11 2:02:00, Duration: 30 day, Stop date: 06/02/11 2:01:00 lanolin 2010-06 No Kirsten-Roxane 1 appl, M emoria topical 07-03 B Route: l 08:02: [facility] TOP, PRN, He rmann 00 h Drug form: OINT PRN Other -See Comment, Start date: 05/03/11 2:02:00, Duration: 30 day, Stop date: 06/02/11 2:01:00 Lactated 2010-06 No Kirsten-Roxane 20 unit, [facility] Ringers -11 B 1,000 mL, l 1000ml+Sesar 08:02: [facility] Rate: 125 Jose Antonio juno 20 00 h ml/hr, units IV Infuse (Premix) 20 over: 8 unit hr, Route: IV, Total Volume: 1,000 mL, Start date: 05/03/11 2:02:00, Duration: 2 day, Stop date: 05/05/11 2:01:00, Replace Every: 8 hr ibuprofen 2010-06 No Kirsten-Roxane 800 mg, 2 [facility]oria 07-03 B tab, l 08:02: [facility] Route: PO, H [place] 00 h Drug form: TAB, Q8H, PRN Pain, Start date: 05/03/11 2:02:00, Duration: 30 day, Stop date: 06/02/11 2:01:00 acetaminoph 2010-06 No Kirsten-Roxane 650 mg, 2 [facility]oria en 07-03 B tab, l 08:02: [facility] Route: PO, H ermann 00 h Drug form: TAB, Q4H, PRN Headache, Start date: 05/03/11 2:02:00, Duration: 30 day, Stop date: 06/02/11 2:01:00 Dermoplast 2010-06 No Kirsten-Roxane 1 spray, [facility] 20% topical 07-03 Route: l spray 08:02: [facility] TOP, PRN, H ermann 00 h Drug form: SPRY PRN Irritation , Start date: 05/03/11 2:02:00, Duration: 30 day, Stop date: 06/02/11 2:01:00 methylergon 2010-06 No Kirsten-Roxane 0.2 mg, 1 [facility] ovine 07-03 B mL, Route: l 08:02: [facility] IM, Drug Her thomas 00 h form: INJ, PRN, PRN Other -See Comment, Start date: 05/03/11 2:02:00, Duration: 30 day, Stop date: 06/02/11 2:01:00 acetaminoph 2010-06 No Kirsten-Roxane 2 tab, [facility] en-hydrocod 07-03 B Route: PO, l one 325 08:02: [facility] Drug Form: Jose Antonio mg-5 mg 00 h TAB, Q4H, oral tablet PRN Pain Score 4-6, Start date: 05/03/11 2:02:00, Duration: 30 day, Stop date: 06/02/11 2:01:00 Lactated 2010-06 No Kirsten-Roxane 1,000 mL, [facility] Ringers IV 07-03 B Rate: 100 l 1,000 mL 08:02: [facility] ml/hr, H ermann 00 h Infuse over: 10 hr, Route: IV, Total Volume: 1,000, Start date: 05/03/11 2:02:00, Duration: 30 day, Stop date: 06/02/11 2:01:00, PRN to maintain IV access Lactated 2010-06 No Kirsten-Roxane 20 unit, [facility] Ringers 07-03 B 1,000 mL, l 1000ml+Oxyt 08:02: [facility] Rate: 125 Jose Antonio ocin 20 00 h ml/hr, units IV Infuse (Premix) 20 over: 8 unit hr, Route: IV, Total Volume: 1,000, Start date: 05/03/11 2:02:00, Duration: 2 day, Stop date: 05/05/11 2:01:00, Replace Every: 8 hr, Replace every 24 hrs; PRN for moderate to severe post bleeding ondansetron 2010-06 No Kirsten-Roxane 4 mg, 2 [facility]oria 07-03 B mL, Route: l 08:02: [facility] IVP, Drug He rmann 00 h form: INJ, Q8H, PRN Nausea & Vomiting, Start date: 05/03/11 2:02:00, Duration: 30 day, Stop date: 06/02/11 2:01:00 docusate 2010-06 No Kirsten-Roxane 100 mg, 1 [facility]oria 07-03 B cap, l 08:02: [facility] Route: PO, H ermann 00 h Drug form: CAP, BID, PRN Constipati on, Start date: 05/03/11 2:02:00, Duration: 30 day, Stop date: 06/02/11 2:01:00 zolpidem 2010-06 No Kirsten-Roxane 5 mg, 1 [facility] 07-03 B tab, l 08:02: [facility] Route: PO, H ermann 00 h Drug form: TAB, Bedtime, PRN Sleep, Start date: 05/03/11 2:02:00, Duration: 30 day, Stop date: 06/02/11 2:01:00 lanolin 2010-06 No Kirsten-Roxane 1 appl, M emoria topical 07-03 B Route: l 08:02: [facility] TOP, PRN, He rmann 00 h Drug form: OINT PRN Other -See Comment, Start date: 05/03/11 2:02:00, Duration: 30 day, Stop date: 06/02/11 2:01:00 Lactated 2010-06 No Kirsten-Roxane 20 unit, [facility] Ringers 07-03 B 1,000 mL, l 1000ml+Sesar 08:02: [facility] Rate: 125 Jose Antonio juno 20 00 h ml/hr, units IV Infuse (Premix) 20 over: 8 unit hr, Route: IV, Total Volume: 1,000 mL, Start date: 05/03/11 2:02:00, Duration: 2 day, Stop date: 05/05/11 2:01:00, Replace Every: 8 hr ibuprofen 2010-06 No Kirsten-Roxane 800 mg, 2 [facility]oria 07-03 B tab, l 08:02: [facility] Route: PO, H ermann 00 h Drug form: TAB, Q8H, PRN Pain, Start date: 05/03/11 2:02:00, Duration: 30 day, Stop date: 06/02/11 2:01:00 acetaminoph 2010-06 No Kirsten-Roxane 650 mg, 2 [facility]oria en 07-03 B tab, l 08:02: [facility] Route: PO, H ermann 00 h Drug form: TAB, Q4H, PRN Headache, Start date: 05/03/11 2:02:00, Duration: 30 day, Stop date: 06/02/11 2:01:00 Dermoplast 2010-06 No Kirsten-Roxane 1 spray, [facility] 20% topical 07-03 B Route: l spray 08:02: [facility] TOP, PRN, H ermann 00 h Drug form: SPRY PRN Irritation , Start date: 05/03/11 2:02:00, Duration: 30 day, Stop date: 06/02/11 2:01:00 methylergon 2010-06 No Kirsten-Roxane 0.2 mg, 1 [facility] ovine 07-03 B mL, Route: l 08:02: [facility] IM, Drug Her thomas 00 h form: INJ, PRN, PRN Other -See Comment, Start date: 05/03/11 2:02:00, Duration: 30 day, Stop date: 06/02/11 2:01:00 acetaminoph 2010-06 No Kirsten-Roxane 2 tab, [facility] en-hydrocod 07-03 B Route: PO, l one 325 08:02: [facility] Drug Form: Jose Antonio mg-5 mg 00 h TAB, Q4H, oral tablet PRN Pain Score 4-6, Start date: 05/03/11 2:02:00, Duration: 30 day, Stop date: 06/02/11 2:01:00 Lactated 2010-06 No Kirsten-Roxane 1,000 mL, [facility] Ringers IV 07-03 B Rate: 100 l 1,000 mL 08:02: [facility] ml/hr, H ermann 00 h Infuse over: 10 hr, Route: IV, Total Volume: 1,000, Start date: 05/03/11 2:02:00, Duration: 30 day, Stop date: 06/02/11 2:01:00, PRN to maintain IV access Lactated 2010-06 No Kirsten-Roxane 20 unit, [facility] Ringers 07-03 B 1,000 mL, l 1000ml+Oxyt 08:02: [facility] Rate: 125 Jose Antonio ocin 20 00 h ml/hr, units IV Infuse (Premix) 20 over: 8 unit hr, Route: IV, Total Volume: 1,000, Start date: 05/03/11 2:02:00, Duration: 2 day, Stop date: 05/05/11 2:01:00, Replace Every: 8 hr, Replace every 24 hrs; PRN for moderate to severe post bleeding ondansetron 2010-06 No Kirsten-Roxane 4 mg, 2 [facility]oria 07-03 B mL, Route: l 08:02: [facility] IVP, Drug He rmann 00 h form: INJ, Q8H, PRN Nausea & Vomiting, Start date: 05/03/11 2:02:00, Duration: 30 day, Stop date: 06/02/11 2:01:00 docusate 2010-06 No Kirsten-Roxane 100 mg, 1 [facility]oria 07-03 B cap, l 08:02: [facility] Route: PO, H ermann 00 h Drug form: CAP, BID, PRN Constipati on, Start date: 05/03/11 2:02:00, Duration: 30 day, Stop date: 06/02/11 2:01:00 zolpidem 2010-06 No Kirsten-Roxane 5 mg, 1 [facility]oria 11 B tab, l 08:02: [facility] Route: PO, H ermann 00 h Drug form: TAB, Bedtime, PRN Sleep, Start date: 05/03/11 2:02:00, Duration: 30 day, Stop date: 06/02/11 2:01:00 lanolin 2010-06 No Kirsten-Roxane 1 appl, M emoria topical 07-03 B Route: l 08:02: [facility] TOP, PRN, He rmann 00 h Drug form: OINT PRN Other -See Comment, Start date: 05/03/11 2:02:00, Duration: 30 day, Stop date: 06/02/11 2:01:00 Lactated 2010-06 No Kirsten-Roxane 20 unit, [facility] Ringers 07-03 B 1,000 mL, l 1000ml+Sesar 08:02: [facility] Rate: 125 [place] juno 20 00 h ml/hr, units IV Infuse (Premix) 20 over: 8 unit hr, Route: IV, Total Volume: 1,000 mL, Start date: 05/03/11 2:02:00, Duration: 2 day, Stop date: 05/05/11 2:01:00, Replace Every: 8 hr ibuprofen 2010-06 No Kirsten-Roxane 800 mg, 2 [facility] 07-03 B tab, l 08:02: [facility] Route: PO, H ermann 00 h Drug form: TAB, Q8H, PRN Pain, Start date: 05/03/11 2:02:00, Duration: 30 day, Stop date: 06/02/11 2:01:00 acetaminoph 2010-06 No Kirsten-Roxane 650 mg, 2 Memoria en 07-03 B tab, l 08:02: [facility] Route: PO, H ermann 00 h Drug form: TAB, Q4H, PRN Headache, Start date: 05/03/11 2:02:00, Duration: 30 day, Stop date: 06/02/11 2:01:00 Dermoplast 2010-06 No Kirsten-Roxane 1 spray, [facility] 20% topical 07-03 Route: l spray 08:02: [facility] TOP, PRN, H ermann 00 h Drug form: SPRY PRN Irritation , Start date: 05/03/11 2:02:00, Duration: 30 day, Stop date: 06/02/11 2:01:00 methylergon 2010-06 No Kirsten-Roxane 0.2 mg, 1 [facility] ovine 07-03 B mL, Route: l 08:02: [facility] IM, Drug Her thomas 00 h form: INJ, PRN, PRN Other -See Comment, Start date: 05/03/11 2:02:00, Duration: 30 day, Stop date: 06/02/11 2:01:00 acetaminoph 2010-06 No Kirsten-Roxane 2 tab, [facility] en-hydrocod 07-03 Route: PO, l one 325 08:02: [facility] Drug Form: [place] mg-5 mg 00 h TAB, Q4H, oral tablet PRN Pain Score 4-6, Start date: 05/03/11 2:02:00, Duration: 30 day, Stop date: 06/02/11 2:01:00 Lactated 2010-06 No Kirsten-Roxane 1,000 mL, [facility] Ringers IV 07-03 B Rate: 100 l 1,000 mL 08:02: [facility] ml/hr, H ermann 00 h Infuse over: 10 hr, Route: IV, Total Volume: 1,000, Start date: 05/03/11 2:02:00, Duration: 30 day, Stop date: 06/02/11 2:01:00, PRN to maintain IV access Lactated 2010-06 No Kirsten-Roxane 20 unit, [facility] Ringers 07-03 B 1,000 mL, l 1000ml+Oxyt 08:02: [facility] Rate: 125 [place] ocin 20 00 h ml/hr, units IV Infuse (Premix) 20 over: 8 unit hr, Route: IV, Total Volume: 1,000, Start date: 05/03/11 2:02:00, Duration: 2 day, Stop date: 05/05/11 2:01:00, Replace Every: 8 hr, Replace every 24 hrs; PRN for moderate to severe post bleeding ondansetron 2010-06 No Kirsten-Roxane 4 mg, 2 [facility] 07-03 B mL, Route: l 08:02: [facility] IVP, Drug He rmann 00 h form: INJ, Q8H, PRN Nausea & Vomiting, Start date: 05/03/11 2:02:00, Duration: 30 day, Stop date: 06/02/11 2:01:00 docusate 2010-06 No Kirsten-Roxane 100 mg, 1 [facility]oria 07-03 B cap, l 08:02: [facility] Route: PO, H ermann 00 h Drug form: CAP, BID, PRN Constipati on, Start date: 05/03/11 2:02:00, Duration: 30 day, Stop date: 06/02/11 2:01:00 zolpidem 2010-06 No Kirsten-Roxane 5 mg, 1 [facility] 07-03 B tab, l 08:02: [facility] Route: PO, H ermann 00 h Drug form: TAB, Bedtime, PRN Sleep, Start date: 05/03/11 2:02:00, Duration: 30 day, Stop date: 06/02/11 2:01:00 lanolin 2010-06 No Kirsten-Roxane 1 appl, M emoria topical 07-03 B Route: l 08:02: [facility] TOP, PRN, He rmann 00 h Drug form: OINT PRN Other -See Comment, Start date: 05/03/11 2:02:00, Duration: 30 day, Stop date: 06/02/11 2:01:00 Lactated 2010-06 No Kirsten-Roxane 20 unit, [facility] Ringers 07-03 B 1,000 mL, l 1000ml+Sesar 08:02: [facility] Rate: 125 [place] juno 20 00 h ml/hr, units IV Infuse (Premix) 20 over: 8 unit hr, Route: IV, Total Volume: 1,000 mL, Start date: 05/03/11 2:02:00, Duration: 2 day, Stop date: 05/05/11 2:01:00, Replace Every: 8 hr ibuprofen 2010-06 No Kirsten-Roxane 800 mg, 2 [facility] 07-03 B tab, l 08:02: [facility] Route: PO, H ermann 00 h Drug form: TAB, Q8H, PRN Pain, Start date: 05/03/11 2:02:00, Duration: 30 day, Stop date: 06/02/11 2:01:00 acetaminoph 2010-06 No Kirsten-Roxane 650 mg, 2 [facility]oria en 07-03 B tab, l 08:02: [facility] Route: PO, H ermann 00 h Drug form: TAB, Q4H, PRN Headache, Start date: 05/03/11 2:02:00, Duration: 30 day, Stop date: 06/02/11 2:01:00 Dermoplast 2010-06 No Kirsten-Roxane 1 spray, [facility] 20% topical 07-03 Route: l spray 08:02: [facility] TOP, PRN, H ermann 00 h Drug form: SPRY PRN Irritation , Start date: 05/03/11 2:02:00, Duration: 30 day, Stop date: 06/02/11 2:01:00 methylergon 2010-06 No Kirsten-Roxane 0.2 mg, 1 [facility] ovine 07-03 B mL, Route: l 08:02: [facility] IM, Drug Her thomas 00 h form: INJ, PRN, PRN Other -See Comment, Start date: 05/03/11 2:02:00, Duration: 30 day, Stop date: 06/02/11 2:01:00 acetaminoph 2010-06 No Kirsten-Roxane 2 tab, [facility] en-hydrocod 07-03 B Route: PO, l one 325 08:02: [facility] Drug Form: [place] mg-5 mg 00 h TAB, Q4H, oral tablet PRN Pain Score 4-6, Start date: 05/03/11 2:02:00, Duration: 30 day, Stop date: 06/02/11 2:01:00 Lactated 2010-06 No Kirsten-Roxane 1,000 mL, [facility] Ringers IV 07-03 B Rate: 100 l 1,000 mL 08:02: [facility] ml/hr, H ermann 00 h Infuse over: 10 hr, Route: IV, Total Volume: 1,000, Start date: 05/03/11 2:02:00, Duration: 30 day, Stop date: 06/02/11 2:01:00, PRN to maintain IV access Lactated 2010-06 No Kirsten-Roxane 20 unit, [facility] Ringers 07-03 B 1,000 mL, l 1000ml+Oxyt 08:02: [facility] Rate: 125 [place] ocin 20 00 h ml/hr, units IV Infuse (Premix) 20 over: 8 unit hr, Route: IV, Total Volume: 1,000, Start date: 05/03/11 2:02:00, Duration: 2 day, Stop date: 05/05/11 2:01:00, Replace Every: 8 hr, Replace every 24 hrs; PRN for moderate to severe post bleeding ondansetron 2010-06 No Kirsten-Roxane 4 mg, 2 [facility] 07-03 B mL, Route: l 08:02: [facility] IVP, Drug He rmann 00 h form: INJ, Q8H, PRN Nausea & Vomiting, Start date: 05/03/11 2:02:00, Duration: 30 day, Stop date: 06/02/11 2:01:00 docusate 2010-06 No Kirsten-Roxane 100 mg, 1 [facility] 07-03 B cap, l 08:02: [facility] Route: PO, H ermann 00 h Drug form: CAP, BID, PRN Constipati on, Start date: 05/03/11 2:02:00, Duration: 30 day, Stop date: 06/02/11 2:01:00 zolpidem 2010-06 No Kirsten-Roxane 5 mg, 1 [facility] 07-03 B tab, l 08:02: [facility] Route: PO, H ermann 00 h Drug form: TAB, Bedtime, PRN Sleep, Start date: 05/03/11 2:02:00, Duration: 30 day, Stop date: 06/02/11 2:01:00 lanolin 2010-06 No Kirsten-Roxane 1 appl, M emoria topical 07-03 B Route: l 08:02: [facility] TOP, PRN, He rmann 00 h Drug form: OINT PRN Other -See Comment, Start date: 05/03/11 2:02:00, Duration: 30 day, Stop date: 06/02/11 2:01:00 Lactated 2010-06 No Kirsten-Roxane 20 unit, [facility] Ringers - B 1,000 mL, l 1000ml+Sesar 08:02: [facility] Rate: 125 [place] juno 20 00 h ml/hr, units IV Infuse (Premix) 20 over: 8 unit hr, Route: IV, Total Volume: 1,000 mL, Start date: 05/03/11 2:02:00, Duration: 2 day, Stop date: 05/05/11 2:01:00, Replace Every: 8 hr ibuprofen 2010-06 No Kirsten-Roxane 800 mg, 2 [facility] 07-03 B tab, l 08:02: [facility] Route: PO, H ermann 00 h Drug form: TAB, Q8H, PRN Pain, Start date: 05/03/11 2:02:00, Duration: 30 day, Stop date: 06/02/11 2:01:00 acetaminoph 2010-06 No Kirsten-Roxane 650 mg, 2 Memoria en 07-03 B tab, l 08:02: [facility] Route: PO, H ermann 00 h Drug form: TAB, Q4H, PRN Headache, Start date: 05/03/11 2:02:00, Duration: 30 day, Stop date: 06/02/11 2:01:00 Dermoplast 2010-06 No Kirsten-Roxane 1 spray, Memoria 20% topical 07-03 B Route: l spray 08:02: [facility] TOP, PRN, H ermann 00 h Drug form: SPRY PRN Irritation , Start date: 05/03/11 2:02:00, Duration: 30 day, Stop date: 06/02/11 2:01:00 methylergon 2010-06 No Kirsten-Roxane 0.2 mg, 1 Memoria ovine 07-03 B mL, Route: l 08:02: [facility] IM, Drug Her thomas 00 h form: INJ, PRN, PRN Other -See Comment, Start date: 05/03/11 2:02:00, Duration: 30 day, Stop date: 06/02/11 2:01:00 acetaminoph 2010-06 No Kirsten-Roxane 2 tab, Memoria en-hydrocod 07-03 B Route: PO, l one 325 08:02: [facility] Drug Form: Jose Antonio mg-5 mg 00 h TAB, Q4H, oral tablet PRN Pain Score 4-6, Start date: 05/03/11 2:02:00, Duration: 30 day, Stop date: 06/02/11 2:01:00 Lactated 2010-06 No Kirsten-Roxane 1,000 mL, Memoria Ringers IV 07-03 B Rate: 100 l 1,000 mL 08:02: [facility] ml/hr, H ermann 00 h Infuse over: 10 hr, Route: IV, Total Volume: 1,000, Start date: 05/03/11 2:02:00, Duration: 30 day, Stop date: 06/02/11 2:01:00, PRN to maintain IV access Lactated 2010-06 No Kirsten-Roxane 20 unit, Memoria Ringers 07-03 B 1,000 mL, l 1000ml+Oxyt 08:02: [facility] Rate: 125 [place] ocin 20 00 h ml/hr, units IV Infuse (Premix) 20 over: 8 unit hr, Route: IV, Total Volume: 1,000, Start date: 05/03/11 2:02:00, Duration: 2 day, Stop date: 05/05/11 2:01:00, Replace Every: 8 hr, Replace every 24 hrs; PRN for moderate to severe post bleeding ondansetron 2010-06 No Kirsten-Roxane 4 mg, 2 Memoria 07-03 B mL, Route: l 08:02: [facility] IVP, Drug He rmann 00 h form: INJ, Q8H, PRN Nausea & Vomiting, Start date: 05/03/11 2:02:00, Duration: 30 day, Stop date: 06/02/11 2:01:00 docusate 2010-06 No Kirsten-Roxane 100 mg, 1 Memoria 07-03 B cap, l 08:02: [facility] Route: PO, H ermann 00 h Drug form: CAP, BID, PRN Constipati on, Start date: 05/03/11 2:02:00, Duration: 30 day, Stop date: 06/02/11 2:01:00 zolpidem 2010-06 No Kirsten-Roxane 5 mg, 1 Memoria -11 B tab, l 08:02: [facility] Route: PO, H ermann 00 h Drug form: TAB, Bedtime, PRN Sleep, Start date: 05/03/11 2:02:00, Duration: 30 day, Stop date: 06/02/11 2:01:00 lanolin 2010-06 No Kirsten-Roxane 1 appl, M emoria topical 07-03 B Route: l 08:02: [facility] TOP, PRN, He rmann 00 h Drug form: OINT PRN Other -See Comment, Start date: 05/03/11 2:02:00, Duration: 30 day, Stop date: 06/02/11 2:01:00 Lactated 2010-06 No Kirsten-Roxane 20 unit, Memoria Ringers 07-03 B 1,000 mL, l 1000ml+Sesar 08:02: [facility] Rate: 125 [place] juno 20 00 h ml/hr, units IV Infuse (Premix) 20 over: 8 unit hr, Route: IV, Total Volume: 1,000 mL, Start date: 05/03/11 2:02:00, Duration: 2 day, Stop date: 05/05/11 2:01:00, Replace Every: 8 hr ibuprofen 2010-06 No Kirsten-Roxane 800 mg, 2 Memoria 07-03 B tab, l 08:02: [facility] Route: PO, H ermann 00 h Drug form: TAB, Q8H, PRN Pain, Start date: 05/03/11 2:02:00, Duration: 30 day, Stop date: 06/02/11 2:01:00 acetaminoph 2010-06 No Kirsten-Roxane 650 mg, 2 Memoria en 07-03 B tab, l 08:02: [facility] Route: PO, H ermann 00 h Drug form: TAB, Q4H, PRN Headache, Start date: 05/03/11 2:02:00, Duration: 30 day, Stop date: 06/02/11 2:01:00 Dermoplast 2010-06 No Kirsten-Roxane 1 spray, Memoria 20% topical 07-03 Route: l spray 08:02: [facility] TOP, PRN, H ermann 00 h Drug form: SPRY PRN Irritation , Start date: 05/03/11 2:02:00, Duration: 30 day, Stop date: 06/02/11 2:01:00 methylergon 2010-06 No Kirsten-Roxane 0.2 mg, 1 Memoria ovine 07-03 B mL, Route: l 08:02: [facility] IM, Drug Her thomas 00 h form: INJ, PRN, PRN Other -See Comment, Start date: 05/03/11 2:02:00, Duration: 30 day, Stop date: 06/02/11 2:01:00 acetaminoph 2010-06 No Kirsten-Roxane 2 tab, Memoria en-hydrocod 07-03 Route: PO, l one 325 08:02: [facility] Drug Form: Jose Antonio mg-5 mg 00 h TAB, Q4H, oral tablet PRN Pain Score 4-6, Start date: 05/03/11 2:02:00, Duration: 30 day, Stop date: 06/02/11 2:01:00 Lactated 2010-06 No Kirsten-Roxane 1,000 mL, Memoria Ringers IV 07-03 Rate: 100 l 1,000 mL 08:02: [facility] ml/hr, H ermann 00 h Infuse over: 10 hr, Route: IV, Total Volume: 1,000, Start date: 05/03/11 2:02:00, Duration: 30 day, Stop date: 06/02/11 2:01:00, PRN to maintain IV access Lactated 2010-06 No Kirsten-Roxane 20 unit, Memoria Ringers 07-03 B 1,000 mL, l 1000ml+Oxyt 08:02: [facility] Rate: 125 [place] ocin 20 00 h ml/hr, units IV Infuse (Premix) 20 over: 8 unit hr, Route: IV, Total Volume: 1,000, Start date: 05/03/11 2:02:00, Duration: 2 day, Stop date: 05/05/11 2:01:00, Replace Every: 8 hr, Replace every 24 hrs; PRN for moderate to severe post bleeding Lactated 2010-06 No Kirsten-Roxane 20 unit, Memoria Ringers 1-11 B 1,000 mL, l 1000ml+Sesar 03:49: [facility] Rate: Jose Antonio fraire 20 00 h Titrate, units IV Route: IV, (Premix Total Titrate) 20 Volume: unit 1,000 mL, Start date: 05/02/11 21:49:00, Duration: 2 day, Stop date: 05/04/11 21:48:00, Replace Every: 24 hr Lactated 2010-06 No Kirsten-Roxane 20 unit, Memoria Ringers 1-11 B 1,000 mL, l 1000ml+Sesar 03:49: [facility] Rate: Jose Antonio fraire 20 00 h Titrate, units IV Route: IV, (Premix Total Titrate) 20 Volume: unit 1,000 mL, Start date: 05/02/11 21:49:00, Duration: 2 day, Stop date: 05/04/11 21:48:00, Replace Every: 24 hr Lactated 2010-06 No Kirsten-Roxane 20 unit, Memoria Ringers 1-11 B 1,000 mL, l 1000ml+Sesar 03:49: [facility] Rate: Jose Antonio fraire 20 00 h Titrate, units IV Route: IV, (Premix Total Titrate) 20 Volume: unit 1,000 mL, Start date: 05/02/11 21:49:00, Duration: 2 day, Stop date: 05/04/11 21:48:00, Replace Every: 24 hr Lactated 2010-06 No Kirsten-Roxane 20 unit, Memoria Ringers 1-11 B 1,000 mL, l 1000ml+Sesar 03:49: [facility] Rate: Jose Antonio fraire 20 00 h Titrate, units IV Route: IV, (Premix Total Titrate) 20 Volume: unit 1,000 mL, Start date: 05/02/11 21:49:00, Duration: 2 day, Stop date: 05/04/11 21:48:00, Replace Every: 24 hr Lactated 2010-06 No Kirsten-Roxane 20 unit, Memoria Ringers 1-11 B 1,000 mL, l 1000ml+Sesar 03:49: [facility] Rate: Jose Antonio juno 20 00 h Titrate, units IV Route: IV, (Premix Total Titrate) 20 Volume: unit 1,000 mL, Start date: 05/02/11 21:49:00, Duration: 2 day, Stop date: 05/04/11 21:48:00, Replace Every: 24 hr Lactated 2010-06 No Kirsten-Roxane 20 unit, Memoria Ringers 1-11 B 1,000 mL, l 1000ml+Sesar 03:49: [facility] Rate: Jose Antonio juno 20 00 h Titrate, units IV Route: IV, (Premix Total Titrate) 20 Volume: unit 1,000 mL, Start date: 05/02/11 21:49:00, Duration: 2 day, Stop date: 05/04/11 21:48:00, Replace Every: 24 hr Lactated 2010-06 No Kirsten-Roxane 20 unit, Memoria Ringers 1-11 B 1,000 mL, l 1000ml+Sesar 03:49: [facility] Rate: Jose Antonio juno 20 00 h Titrate, units IV Route: IV, (Premix Total Titrate) 20 Volume: unit 1,000 mL, Start date: 05/02/11 21:49:00, Duration: 2 day, Stop date: 05/04/11 21:48:00, Replace Every: 24 hr penicillin 2010-06 No Kirsten-Roxane 5,000,000 Memoria G potassium 1-11 B unit, 100 l 5,000,000 03:00: [facility] mL, Route: Jose Antonio units 00 h IVPB, Drug injection form: PDR/INJ, ONCALL, Start date: 05/02/11 21:00:00 penicillin 2010-06 No Kirsten-Roxane 2,500,000 Memoria G potassium 1-11 B unit, 50 l 03:00: [facility] mL, Route: H ermann 00 h IVPB, Drug form: INJ, ABXQ4H, Start date: 05/02/11 21:00:00 penicillin 2010-06 No Kirsten-Roxane 5,000,000 Memoria G potassium 1-11 B unit, 100 l 5,000,000 03:00: [facility] mL, Route: Jose Antonio units 00 h IVPB, Drug injection form: PDR/INJ, ONCALL, Start date: 05/02/11 21:00:00 penicillin 2010-06 No Kirsten-Roxane 2,500,000 Memoria G potassium 1-11 B unit, 50 l 03:00: [facility] mL, Route: H ermann 00 h IVPB, Drug form: INJ, ABXQ4H, Start date: 05/02/11 21:00:00 penicillin 2010-06 No Kirsten-Roxane 5,000,000 Memoria G potassium 1-11 B unit, 100 l 5,000,000 03:00: [facility] mL, Route: Jose Antonio units 00 h IVPB, Drug injection form: PDR/INJ, ONCALL, Start date: 05/02/11 21:00:00 penicillin 2010-06 No Kirsten-Roxane 2,500,000 Memoria G potassium 1-11 B unit, 50 l 03:00: [facility] mL, Route: H ermann 00 h IVPB, Drug form: INJ, ABXQ4H, Start date: 05/02/11 21:00:00 penicillin 2010-06 No Kirsten-Roxane 5,000,000 Memoria G potassium 1-11 B unit, 100 l 5,000,000 03:00: [facility] mL, Route: [place] units 00 h IVPB, Drug injection form: PDR/INJ, ONCALL, Start date: 05/02/11 21:00:00 penicillin 2010-06 No Kirsten-Roxane 2,500,000 Memoria G potassium 1-11 B unit, 50 l 03:00: [facility] mL, Route: H ermann 00 h IVPB, Drug form: INJ, ABXQ4H, Start date: 05/02/11 21:00:00 penicillin 2010-06 No Kirsten-Roxane 5,000,000 Memoria G potassium 1-11 B unit, 100 l 5,000,000 03:00: [facility] mL, Route: Jose Antonio units 00 h IVPB, Drug injection form: PDR/INJ, ONCALL, Start date: 05/02/11 21:00:00 penicillin 2010-06 No Kirsten-Roxane 2,500,000 Memoria G potassium 1-11 B unit, 50 l 03:00: [facility] mL, Route: H ermann 00 h IVPB, Drug form: INJ, ABXQ4H, Start date: 05/02/11 21:00:00 penicillin 2010-06 No Kirsten-Roxane 5,000,000 Memoria G potassium 1-11 B unit, 100 l 5,000,000 03:00: [facility] mL, Route: Jose Antonio units 00 h IVPB, Drug injection form: PDR/INJ, ONCALL, Start date: 05/02/11 21:00:00 penicillin 2010-06 No Kirsten-Roxane 2,500,000 Memoria G potassium 1-11 B unit, 50 l 03:00: [facility] mL, Route: H ermann 00 h IVPB, Drug form: INJ, ABXQ4H, Start date: 05/02/11 21:00:00 penicillin 2010-06 No Kirsten-Roxane 5,000,000 Memoria G potassium 1-11 B unit, 100 l 5,000,000 03:00: [facility] mL, Route: [place] units 00 h IVPB, Drug injection form: PDR/INJ, ONCALL, Start date: 05/02/11 21:00:00 penicillin 2010-06 No Kirsten-Roxane 2,500,000 Memoria G potassium 1-11 B unit, 50 l 03:00: [facility] mL, Route: H ermann 00 h IVPB, Drug form: INJ, ABXQ4H, Start date: 05/02/11 21:00:00 FENTanyl 2010-06 No [facility]irsten-Roxane Infuse M emoria 2mcg/ml+Rop 1-11 B via: l ivacaine 02:39: [facility], [place] 0.2% 00 h Route: Epidural EPIDURAL, 100 mL Start date: 05/02/11 20:39:00 100 mL, Drug Form: INJ, Duration: 30 day, Stop date: 06/01/11 20:38:00 nalbuphine 2010-06 No Kirsten-Roxane 2 mg, 0.2 Memoria 1-11 B mL, Route: l 02:39: [facility] IVP, Drug He rmann 00 h form: INJ, Q2H, PRN Itching, Start date: 05/02/11 20:39:00, Duration: 5 doses or times, Stop date: Limited # of times FENTanyl 2010-06 No Kirsten-Roxane Infuse M emoria 2mcg/ml+Rop 1-11 B via: l ivacaine 02:39: [facility], [place] 0.2% 00 h Route: Epidural EPIDURAL, 100 mL Start date: 05/02/11 20:39:00 100 mL, Drug Form: INJ, Duration: 30 day, Stop date: 06/01/11 20:38:00 nalbuphine 2010-06 No Kirsten-Roxane 2 mg, 0.2 Memoria 1-11 B mL, Route: l 02:39: [facility] IVP, Drug He rmann 00 h form: INJ, Q2H, PRN Itching, Start date: 05/02/11 20:39:00, Duration: 5 doses or times, Stop date: Limited # of times FENTanyl 2010-06 No Kirsten-Roxane Infuse M emoria 2mcg/ml+Rop 1-11 B via: l ivacaine 02:39: [facility], [place] 0.2% 00 h Route: Epidural EPIDURAL, 100 mL Start date: 05/02/11 20:39:00 100 mL, Drug Form: INJ, Duration: 30 day, Stop date: 06/01/11 20:38:00 nalbuphine 2010-06 No Kirsten-Roxane 2 mg, 0.2 Memoria 1-11 B mL, Route: l 02:39: [facility] IVP, Drug He rmann 00 h form: INJ, Q2H, PRN Itching, Start date: 05/02/11 20:39:00, Duration: 5 doses or times, Stop date: Limited # of times FENTanyl 2010-06 No Kirsten-Roxane Infuse M emoria 2mcg/ml+Rop 1-11 B via: l ivacaine 02:39: [facility], [place] 0.2% 00 h Route: Epidural EPIDURAL, 100 mL Start date: 05/02/11 20:39:00 100 mL, Drug Form: INJ, Duration: 30 day, Stop date: 06/01/11 20:38:00 nalbuphine 2010-06 No Kirsten-Roxane 2 mg, 0.2 Memoria 1-11 B mL, Route: l 02:39: [facility] IVP, Drug He rmann 00 h form: INJ, Q2H, PRN Itching, Start date: 05/02/11 20:39:00, Duration: 5 doses or times, Stop date: Limited # of times FENTanyl 2010-06 No Kirsten-Roxane Infuse M emoria 2mcg/ml+Rop 1-11 B via: l ivacaine 02:39: [facility], [place] 0.2% 00 h Route: Epidural EPIDURAL, 100 mL Start date: 05/02/11 20:39:00 100 mL, Drug Form: INJ, Duration: 30 day, Stop date: 06/01/11 20:38:00 nalbuphine 2010-06 No Kirsten-Roxane 2 mg, 0.2 Memoria 1-11 B mL, Route: l 02:39: [facility] IVP, Drug He rmann 00 h form: INJ, Q2H, PRN Itching, Start date: 05/02/11 20:39:00, Duration: 5 doses or times, Stop date: Limited # of times FENTanyl 2010-06 No Kirsten-Roxane Infuse M emoria 2mcg/ml+Rop 1-11 B via: l ivacaine 02:39: [facility], [place] 0.2% 00 h Route: Epidural EPIDURAL, 100 mL Start date: 05/02/11 20:39:00 100 mL, Drug Form: INJ, Duration: 30 day, Stop date: 06/01/11 20:38:00 nalbuphine 2010-06 No Kirsten-Roxane 2 mg, 0.2 Memoria 1-11 B mL, Route: l 02:39: [facility] IVP, Drug He rmann 00 h form: INJ, Q2H, PRN Itching, Start date: 05/02/11 20:39:00, Duration: 5 doses or times, Stop date: Limited # of times FENTanyl 2010-06 No Kirsten-Roxane Infuse M emoria 2mcg/ml+Rop 1-11 B via: l ivacaine 02:39: [facility], [place] 0.2% 00 h Route: Epidural EPIDURAL, 100 mL Start date: 05/02/11 20:39:00 100 mL, Drug Form: INJ, Duration: 30 day, Stop date: 06/01/11 20:38:00 nalbuphine 2010-06 No Kirsten-Roxane 2 mg, 0.2 Memoria 1-11 B mL, Route: l 02:39: [facility] IVP, Drug He rmann 00 h form: INJ, Q2H, PRN Itching, Start date: 05/02/11 20:39:00, Duration: 5 doses or times, Stop date: Limited # of times acetaminoph 2010-06 No Kirsten-Roxane 2 tab, Memoria en-hydrocod 1-11 B Route: PO, l one 00:07: [facility] Drug Form: H ermann 00 h TAB, Q4H, PRN Pain Score 4-6, Start date: 05/02/11 18:07:00, Duration: 30 day, Stop date: 06/01/11 18:06:00 acetaminoph 2010-06 No Kirsten-Roxane 2 tab, Memoria en-hydrocod 1-11 B Route: PO, l one 00:07: [facility] Drug Form: H ermann 00 h TAB, Q4H, PRN Pain Score 4-6, Start date: 05/02/11 18:07:00, Duration: 30 day, Stop date: 06/01/11 18:06:00 acetaminoph 2010-06 No Kirsten-Roxane 2 tab, Memoria en-hydrocod - B Route: PO, l one 00:07: [facility] Drug Form: H ermann 00 h TAB, Q4H, PRN Pain Score 4-6, Start date: 05/02/11 18:07:00, Duration: 30 day, Stop date: 06/01/11 18:06:00 acetaminoph 2010-06 No Kirsten-Roxane 2 tab, Memoria en-hydrocod 1-11 B Route: PO, l one 00:07: [facility] Drug Form: H ermann 00 h TAB, Q4H, PRN Pain Score 4-6, Start date: 05/02/11 18:07:00, Duration: 30 day, Stop date: 06/01/11 18:06:00 acetaminoph 2010-06 No Kirsten-Roxane 2 tab, Memoria en-hydrocod 1-11 B Route: PO, l one 00:07: [facility] Drug Form: H ermann 00 h TAB, Q4H, PRN Pain Score 4-6, Start date: 05/02/11 18:07:00, Duration: 30 day, Stop date: 06/01/11 18:06:00 acetaminoph 2010-06 No Kirsten-Roxane 2 tab, Memoria en-hydrocod 11 B Route: PO, l one 00:07: [facility] Drug Form: H ermann 00 h TAB, Q4H, PRN Pain Score 4-6, Start date: 05/02/11 18:07:00, Duration: 30 day, Stop date: 06/01/11 18:06:00 acetaminoph 2010-06 No Kirsten-Roxane 2 tab, Memoria en-hydrocod 11 B Route: PO, l one 00:07: [facility] Drug Form: H ermann 00 h TAB, Q4H, PRN Pain Score 4-6, Start date: 05/02/11 18:07:00, Duration: 30 day, Stop date: 06/01/11 18:06:00 citric 2010-06 No Kirsten-Roxane 30 ml, Mem oria acid-sodium 07-03 B Route: PO, l citrate 00:00: [facility] Drug Form: Jose Antonio 00 h SOLN, ONCALL, Start date: 05/02/11 18:00:00, Duration: 30 day, Stop date: 06/01/11 17:59:00 methylergon 2010-06 No Kirsten-Roxane 0.2 mg, 1 Memoria ovine 1-11 B mL, Route: l 00:00: [facility] IM, Drug Her thomas 00 h form: INJ, ONCALL, Start date: 05/02/11 18:00:00, Duration: 30 day, Stop date: 06/01/11 17:59:00 metoclopram 2010-06 No Kirsten-Roxane 10 mg, 2 Memoria che 1-11 B mL, Route: l 00:00: [facility] IVP, Drug He rmann 00 h form: INJ, ONCALL, Start date: 05/02/11 18:00:00, Duration: 30 day, Stop date: 06/01/11 17:59:00 oxytocin-ad 2010-06 No Kirsten-Roxane 20 unit, 2 Memoria d to 1-11 B mL, Route: l current IV 00:00: [facility] INJ, Drug [place] 00 h form: SOLN, ONCALL, Start date: 05/02/11 18:00:00, Duration: 2 day, Stop date: 05/04/11 17:59:00 carboprost 2010-06 No Kirsten-Roxane 250 M emoria 1-11 B microgram, l 00:00: [facility] 1 mL, Nimesh n 00 h Route: IM, Drug form: INJ, ONCALL, Start date: 05/02/11 18:00:00, Duration: 30 day, Stop date: 06/01/11 17:59:00 misoprostol 2010-06 No [facility]en-Orxane 1,000 Memoria 1-11 B microgram, l 00:00: [facility] 10 tab, Herm wesley 00 h Route: FL, Drug form: TAB, ONCALL, Start date: 05/02/11 18:00:00, Duration: 1 doses or times famotidine 2010-06 No Kirsten-Roxane 20 mg, 2 Memoria 1-11 B mL, Route: l 00:00: [facility] IVP, Drug He rmann 00 h form: INJ, ONCALL, Start date: 05/02/11 18:00:00, Duration: 30 day, Stop date: 06/01/11 17:59:00 citric 2010-06 No Kirsten-Roxane 30 ml, Mem oria acid-sodium 1-11 B Route: PO, l citrate 00:00: [facility] Drug Form: Jose Antonio 00 h SOLN, ONCALL, Start date: 05/02/11 18:00:00, Duration: 30 day, Stop date: 06/01/11 17:59:00 methylergon 2010-06 No Kirsten-Roxane 0.2 mg, 1 Memoria ovine 1-11 B mL, Route: l 00:00: [facility] IM, Drug Her thomsa 00 h form: INJ, ONCALL, Start date: 05/02/11 18:00:00, Duration: 30 day, Stop date: 06/01/11 17:59:00 metoclopram 2010-06 No Kirsten-Roxane 10 mg, 2 Memoria che 1-11 B mL, Route: l 00:00: [facility] IVP, Drug He rmann 00 h form: INJ, ONCALL, Start date: 05/02/11 18:00:00, Duration: 30 day, Stop date: 06/01/11 17:59:00 oxytocin-ad 2010-06 No Kirsten-Roxane 20 unit, 2 Memoria d to 1-11 B mL, Route: l current IV 00:00: [facility] INJ, Drug Jose Antonio 00 h form: SOLN, ONCALL, Start date: 05/02/11 18:00:00, Duration: 2 day, Stop date: 05/04/11 17:59:00 carboprost 2010-06 No Kirsten-Roxane 250 M emoria 1-11 B microgram, l 00:00: [facility] 1 mL, Nimesh n 00 h Route: IM, Drug form: INJ, ONCALL, Start date: 05/02/11 18:00:00, Duration: 30 day, Stop date: 06/01/11 17:59:00 misoprostol 2010-06 No Kirsten-Roxane 1,000 Memoria 1-11 B microgram, l 00:00: [facility] 10 tab, Herm wesley 00 h Route: FL, Drug form: TAB, ONCALL, Start date: 05/02/11 18:00:00, Duration: 1 doses or times famotidine 2010-06 No Kirsten-Roxane 20 mg, 2 Memoria 1-11 B mL, Route: l 00:00: [facility] IVP, Drug He rmann 00 h form: INJ, ONCALL, Start date: 05/02/11 18:00:00, Duration: 30 day, Stop date: 06/01/11 17:59:00 citric 2010-06 No Kirsten-Roxane 30 ml, Mem oria acid-sodium 1-11 B Route: PO, l citrate 00:00: [facility] Drug Form: Jose Antonio 00 h SOLLIDA WheelerALL, Start date: 05/02/11 18:00:00, Duration: 30 day, Stop date: 06/01/11 17:59:00 methylergon 2010-06 No Kirsten-Roxane 0.2 mg, 1 Memoria ovine 1-11 B mL, Route: l 00:00: [facility] IM, Drug Her thomas 00 h form: INJ, ONCALL, Start date: 05/02/11 18:00:00, Duration: 30 day, Stop date: 06/01/11 17:59:00 metoclopram 2010-06 No Kirsten-Roxane 10 mg, 2 Memoria che 1-11 B mL, Route: l 00:00: [facility] IVP, Drug He rmann 00 h form: INJ, ONCALL, Start date: 05/02/11 18:00:00, Duration: 30 day, Stop date: 06/01/11 17:59:00 oxytocin-ad 2010-06 No Kirsten-Roxane 20 unit, 2 Memoria d to 1-11 B mL, Route: l current IV 00:00: [facility] INJ, Drug Jose Antonio 00 h form: SOLN, ONCALL, Start date: 05/02/11 18:00:00, Duration: 2 day, Stop date: 05/04/11 17:59:00 carboprost 2010-06 No Kirsten-Roxane 250 M emoria 1-11 B microgram, l 00:00: [facility] 1 mL, Nimesh n 00 h Route: IM, Drug form: INJ, ONCALL, Start date: 05/02/11 18:00:00, Duration: 30 day, Stop date: 06/01/11 17:59:00 misoprostol 2010-06 No Kirsten-Roxane 1,000 Memoria 1-11 B microgram, l 00:00: [facility] 10 tab, Herm wesley 00 h Route: FL, Drug form: TAB, ONCALL, Start date: 05/02/11 18:00:00, Duration: 1 doses or times famotidine 2010-06 No Kirsten-Roxane 20 mg, 2 Memoria 1-11 B mL, Route: l 00:00: [facility] IVP, Drug He rmann 00 h form: INJ, ONCALL, Start date: 05/02/11 18:00:00, Duration: 30 day, Stop date: 06/01/11 17:59:00 citric 2010-06 No Kirsten-Roxane 30 ml, Mem oria acid-sodium 1-11 B Route: PO, l citrate 00:00: [facility] Form: Jose Antonio 00 h BONNIE DRIVER, Start date: 05/02/11 18:00:00, Duration: 30 day, Stop date: 06/01/11 17:59:00 methylergon 2010-06 No Kirsten-Roxane 0.2 mg, 1 Memoria ovine 1-11 B mL, Route: l 00:00: [facility], Drug Her thomas 00 h form: INJ, ONCALL, Start date: 05/02/11 18:00:00, Duration: 30 day, Stop date: 06/01/11 17:59:00 metoclopram 2010-06 No Kirsten-Roxane 10 mg, 2 Memoria che 1-11 B mL, Route: l 00:00: [facility] IVP, Drug He rmann 00 h form: INJBONNIE, Start date: 05/02/11 18:00:00, Duration: 30 day, Stop date: 06/01/11 17:59:00 oxytocin-ad 2010-06 No [facility]irsten-Roxane 20 unit, 2 Memoria d to 1-11 B mL, Route: l current IV 00:00: [facility] INJ, Drug [place] 00 h form: BONNIE DRIVER, Start date: 05/02/11 18:00:00, Duration: 2 day, Stop date: 05/04/11 17:59:00 citric 2010-06 No Kirsten-Roxane 30 ml, Mem oria acid-sodium 1-11 B Route: PO, l citrate 00:00: [facility] Form: Jose Antonio 00 h [employer]ONNIE [employer]IVER, Start date: 05/02/11 18:00:00, Duration: 30 day, Stop date: 06/01/11 17:59:00 methylergon 2010-06 No Kirsten-Roxane 0.2 mg, 1 Memoria ovine 1-11 B mL, Route: l 00:00: [facility], Drug Her thomas 00 h form: INJLIDAALL, Start date: 05/02/11 18:00:00, Duration: 30 day, Stop date: 06/01/11 17:59:00 metoclopram 2010-06 No Kirsten-Roxane 10 mg, 2 Memoria che 1-11 B mL, Route: l 00:00: [facility] IVP, Drug He rmann 00 h form: INJ, ONCALL, Start date: 05/02/11 18:00:00, Duration: 30 day, Stop date: 06/01/11 17:59:00 oxytocin-ad 2010-06 No Kirsten-Roxane 20 unit, 2 Memoria d to 1-11 B mL, Route: l current IV 00:00: [facility] INJ, Drug Jose Antonio 00 h form: SOLN, ONCALL, Start date: 05/02/11 18:00:00, Duration: 2 day, Stop date: 05/04/11 17:59:00 carboprost 2010-06 No Kirsten-Roxane 250 M emoria 1-11 B microgram, l 00:00: [facility] 1 mL, Nimesh n 00 h Route: IM, Drug form: INJ, ONCALL, Start date: 05/02/11 18:00:00, Duration: 30 day, Stop date: 06/01/11 17:59:00 misoprostol 2010-06 No Kirsten-Roxane 1,000 Memoria 1-11 B microgram, l 00:00: [facility] 10 tab, Herm wesley 00 h Route: [place], Drug form: TAB, ONCALL, Start date: 05/02/11 18:00:00, Duration: 1 doses or times famotidine 2010-06 No [facility]irsten-Roxane 20 mg, 2 Memoria 1-11 B mL, Route: l 00:00: [facility] IVP, Drug He rmann 00 h form: INJ, ONCALL, Start date: 05/02/11 18:00:00, Duration: 30 day, Stop date: 06/01/11 17:59:00 carboprost 2010-06 No Kirsten-Roxane 250 M emoria 1-11 B microgram, l 00:00: [facility] 1 mL, Nimesh n 00 h Route: IM, Drug form: INJ, ONCALL, Start date: 05/02/11 18:00:00, Duration: 30 day, Stop date: 06/01/11 17:59:00 misoprostol 2010-06 No Kirsten-Roxane 1,000 Memoria 1-11 B microgram, l 00:00: [facility] 10 tab, Herm wesley 00 h Route: [place], Drug form: TAB, ONCALL, Start date: 05/02/11 18:00:00, Duration: 1 doses or times famotidine 2010-06 No Kirsten-Roxane 20 mg, 2 Memoria 1-11 B mL, Route: l 00:00: [facility] IVP, Drug He rmann 00 h form: INJ, ONCALL, Start date: 05/02/11 18:00:00, Duration: 30 day, Stop date: 06/01/11 17:59:00 citric 2010-06 No Kirsten-Roxane 30 ml, Mem oria acid-sodium 1-11 B Route: PO, l citrate 00:00: [facility] Form: Jose Antonio 00 h [employer]ONNIE [employer]IVER, Start date: 05/02/11 18:00:00, Duration: 30 day, Stop date: 06/01/11 17:59:00 methylergon 2010-06 No Kirsten-Roxane 0.2 mg, 1 Memoria ovine 1-11 B mL, Route: l 00:00: [facility], Drug Her thomas 00 h form: INJ, LIDAALL, Start date: 05/02/11 18:00:00, Duration: 30 day, Stop date: 06/01/11 17:59:00 metoclopram 2010-06 No Kirsten-Roxane 10 mg, 2 Memoria che 1-11 B mL, Route: l 00:00: [facility] IVP, Drug He rmann 00 h form: INJ, LIDAALL, Start date: 05/02/11 18:00:00, Duration: 30 day, Stop date: 06/01/11 17:59:00 oxytocin-ad 2010-06 No Kirsten-Roxane 20 unit, 2 Memoria d to 1-11 B mL, Route: l current IV 00:00: [facility] INJ, Drug [place] 00 h form: SOLN, BONNIE, Start date: 05/02/11 18:00:00, Duration: 2 day, Stop date: 05/04/11 17:59:00 carboprost 2010-06 No Kirsten-Roxane 250 M emoria 1-11 B microgram, l 00:00: [facility] 1 mL, Nimesh n 00 h Route: IM, Drug form: INJ, ONCALL, Start date: 05/02/11 18:00:00, Duration: 30 day, Stop date: 06/01/11 17:59:00 misoprostol 2010-06 No Kirsten-Roxane 1,000 Memoria 1-11 B microgram, l 00:00: [facility] 10 tab, Herm wesley 00 h Route: [place], Drug form: TAB, ONCALL, Start date: 05/02/11 18:00:00, Duration: 1 doses or times famotidine 2010-06 No Kirsten-Roxane 20 mg, 2 Memoria 1-11 B mL, Route: l 00:00: [facility] IVP, Drug He rmann 00 h form: INJ, ONCALL, Start date: 05/02/11 18:00:00, Duration: 30 day, Stop date: 06/01/11 17:59:00 citric 2010-06 No Kirsten-Roxane 30 ml, Mem oria acid-sodium 1-11 B Route: PO, l citrate 00:00: [facility] Drug Form: Jose Antonio 00 h SOLN, ONCALL, Start date: 05/02/11 18:00:00, Duration: 30 day, Stop date: 06/01/11 17:59:00 methylergon 2010-06 No Kirsten-Roxane 0.2 mg, 1 Memoria ovine 1-11 B mL, Route: l 00:00: [facility] IM, Drug Her thomas 00 h form: INJ, ONCALL, Start date: 05/02/11 18:00:00, Duration: 30 day, Stop date: 06/01/11 17:59:00 metoclopram 2010-06 No Kirsten-Roxane 10 mg, 2 Memoria che 1-11 B mL, Route: l 00:00: [facility] IVP, Drug He rmann 00 h form: INJ, ONCALL, Start date: 05/02/11 18:00:00, Duration: 30 day, Stop date: 06/01/11 17:59:00 oxytocin-ad 2010-06 No Kirsten-Roxane 20 unit, 2 Memoria d to 1-11 B mL, Route: l current IV 00:00: [facility] INJ, Drug [place] 00 h form: SOLN, ONCALL, Start date: 05/02/11 18:00:00, Duration: 2 day, Stop date: 05/04/11 17:59:00 carboprost 2010-06 No Kirsten-Roxane 250 M emoria 1-11 B microgram, l 00:00: [facility] 1 mL, Nimesh n 00 h Route: IM, Drug form: INJ, ONCALL, Start date: 05/02/11 18:00:00, Duration: 30 day, Stop date: 06/01/11 17:59:00 misoprostol 2010-06 No Kirsten-Roxane 1,000 Memoria 1-11 B microgram, l 00:00: [facility] 10 tab, Herm wesley 00 h Route: FL, Drug form: TAB, ONCALL, Start date: 05/02/11 18:00:00, Duration: 1 doses or times famotidine 2010-06 No Kirsten-Roxane 20 mg, 2 Memoria 1-11 B mL, Route: l 00:00: [facility] IVP, Drug He rmann 00 h form: INJ, ONCALL, Start date: 05/02/11 18:00:00, Duration: 30 day, Stop date: 06/01/11 17:59:00 Lactated 2010-06 No Kirsten-Roxane 1,000 mL, Memoria Ringers 1-10 B Rate: 100 l Injection 23:57: [facility] ml/hr, [place] IV 1,000 mL 00 h Infuse over: 10 hr, Route: IV, Total Volume: 1,000, Bolus for regional anesthesia per unit protocol, Start date: 05/02/11 17:57:00, Duration: 30 day, Stop date: 06/01/11 17:56:00 lidocaine 2010-06 No Kirsten-Roxane 20 ml, Memoria 1% 1-10 B Route: l 23:57: [facility] PERCUT, Herm wesley 00 h Drug Form: INJ, PRN, PRN Other -See Comment, Start date: 05/02/11 17:57:00, Duration: 1 doses or times, Stop date: Limited # of times terbutaline 2010-06 No Kirsten-Roxane 0.25 mg, Memoria 1-10 B 0.25 mL, l 23:57: [facility] Route: Amrita nn 00 h SUB-Q, Drug form: INJ, PRN, PRN Other -See Comment, Start date: 05/02/11 17:57:00, Duration: 1 doses or times, Stop date: Limited # of times Lactated 2010-06 No Kirsten-Roxane 20 unit, Memoria Ringers 1-10 B 1,000 mL, l 1000ml+Sesar 23:57: [facility] Rate: 125 [place] juno 20 00 h ml/hr, units IV Infuse (Premix) 20 over: 8 unit hr, Route: IV, Total Volume: 1,000 mL, Start date: 05/02/11 17:57:00, Duration: 2 day, Stop date: 05/04/11 17:56:00, Replace Every: 8 hr Lactated 2010-06 No Kirsten-Roxane 1,000 mL, Memoria Ringers IV 1-10 B Rate: 125 l 1,000 mL 23:57: [facility] ml/hr, H ermann 00 h Infuse over: 8 hr, Route: IV, Total Volume: 1,000, Start date: 05/02/11 17:57:00, Duration: 30 day, Stop date: 06/01/11 17:56:00 acetaminoph 2010-06 No Kirsten-Rxoane 1 tab, [facility] en-hydrocod 1-10 B Route: PO, l one 325 23:57: [facility] Drug Form: Jose Antonio mg-5 mg 00 h TAB, Q4H, oral tablet PRN Pain Score 1-3, Start date: 05/02/11 17:57:00, Duration: 30 day, Stop date: 06/01/11 17:56:00 butorphanol 2010-06 No Kirsten-Roxane 2 mg, 1 [facility] 1-10 B mL, Route: l 23:57: [facility] IVP, Drug He rmann 00 h form: INJ, Q2H, PRN Pain Score 6-10, Start date: 05/02/11 17:57:00, Duration: 30 day, Stop date: 06/01/11 17:56:00 ibuprofen 2010-06 No Kirsten-Roxane 800 mg, 2 [facility] 1-10 B tab, l 23:57: [facility] Route: PO, H ermann 00 h Drug form: TAB, Q8H, PRN Other -See Comment, Start date: 05/02/11 17:57:00, Duration: 30 day, Stop date: 06/01/11 17:56:00 ondansetron 2010-06 No Kirsten-Roxane 4 mg, 2 [facility] 1-10 B mL, Route: l 23:57: [facility] IVP, Drug He rmann 00 h form: INJ, Q8H, PRN Nausea & Vomiting, Start date: 05/02/11 17:57:00, Duration: 30 day, Stop date: 06/01/11 17:56:00 Lactated 2010-06 No Kirsten-Roxane 1,000 mL, [facility] Ringers 1-10 B Rate: 100 l Injection 23:57: [facility] ml/hr, Jose Antonio IV 1,000 mL 00 h Infuse over: 10 hr, Route: IV, Total Volume: 1,000, Bolus for regional anesthesia per unit protocol, Start date: 05/02/11 17:57:00, Duration: 30 day, Stop date: 06/01/11 17:56:00 lidocaine 2010-06 No Kirsten-Roxane 20 ml, [facility] 1% 1-10 B Route: l 23:57: [facility] PERCUT, Herm wesley 00 h Drug Form: INJ, PRN, PRN Other -See Comment, Start date: 05/02/11 17:57:00, Duration: 1 doses or times, Stop date: Limited # of times terbutaline 2010-06 No Kirsten-Roxane 0.25 mg, [facility] 1-10 B 0.25 mL, l 23:57: [facility] Route: Amrita nn 00 h SUB-Q, Drug form: INJ, PRN, PRN Other -See Comment, Start date: 05/02/11 17:57:00, Duration: 1 doses or times, Stop date: Limited # of times Lactated 2010-06 No Kirsten-Roxane 20 unit, [facility] Ringers 1-10 B 1,000 mL, l 1000ml+Sesar 23:57: [facility] Rate: 125 [place] juno 20 00 h ml/hr, units IV Infuse (Premix) 20 over: 8 unit hr, Route: IV, Total Volume: 1,000 mL, Start date: 05/02/11 17:57:00, Duration: 2 day, Stop date: 05/04/11 17:56:00, Replace Every: 8 hr Lactated 2010-06 No Kirsten-Roxane 1,000 mL, [facility] Ringers IV 1-10 B Rate: 125 l 1,000 mL 23:57: [facility] ml/hr, H ermann 00 h Infuse over: 8 hr, Route: IV, Total Volume: 1,000, Start date: 05/02/11 17:57:00, Duration: 30 day, Stop date: 06/01/11 17:56:00 acetaminoph 2010-06 No Kirsten-Roxane 1 tab, [facility] en-hydrocod 1-10 B Route: PO, l one 325 23:57: [facility] Drug Form: Jose Antonio mg-5 mg 00 h TAB, Q4H, oral tablet PRN Pain Score 1-3, Start date: 05/02/11 17:57:00, Duration: 30 day, Stop date: 06/01/11 17:56:00 butorphanol 2010-06 No Kirsten-Roxane 2 mg, 1 [facility] 1-10 B mL, Route: l 23:57: [facility] IVP, Drug He rmann 00 h form: INJ, Q2H, PRN Pain Score 6-10, Start date: 05/02/11 17:57:00, Duration: 30 day, Stop date: 06/01/11 17:56:00 ibuprofen 2010-06 No Kirsten-Roxane 800 mg, 2 [facility] 1-10 B tab, l 23:57: [facility] Route: PO, H ermann 00 h Drug form: TAB, Q8H, PRN Other -See Comment, Start date: 05/02/11 17:57:00, Duration: 30 day, Stop date: 06/01/11 17:56:00 ondansetron 2010-06 No Kirsten-Roxane 4 mg, 2 [facility] 1-10 B mL, Route: l 23:57: [facility] IVP, Drug He rmann 00 h form: INJ, Q8H, PRN Nausea & Vomiting, Start date: 05/02/11 17:57:00, Duration: 30 day, Stop date: 06/01/11 17:56:00 Lactated 2010-06 No Kirsten-Roxane 1,000 mL, [facility] Ringers 1-10 B Rate: 100 l Injection 23:57: [facility] ml/hr, [place] IV 1,000 mL 00 h Infuse over: 10 hr, Route: IV, Total Volume: 1,000, Bolus for regional anesthesia per unit protocol, Start date: 05/02/11 17:57:00, Duration: 30 day, Stop date: 06/01/11 17:56:00 lidocaine 2010-06 No Kirsten-Roxane 20 ml, [facility] 1% 1-10 B Route: l 23:57: [facility] PERCUT, Herm wesley 00 h Drug Form: INJ, PRN, PRN Other -See Comment, Start date: 05/02/11 17:57:00, Duration: 1 doses or times, Stop date: Limited # of times terbutaline 2010-06 No Kirsten-Roxane 0.25 mg, [facility] 1-10 B 0.25 mL, l 23:57: [facility] Route: Amrita nn 00 h SUB-Q, Drug form: INJ, PRN, PRN Other -See Comment, Start date: 05/02/11 17:57:00, Duration: 1 doses or times, Stop date: Limited # of times Lactated 2010-06 No Kirsten-Roxane 20 unit, [facility] Ringers 1-10 B 1,000 mL, l 1000ml+Sesar 23:57: [facility] Rate: 125 [place] juno 20 00 h ml/hr, units IV Infuse (Premix) 20 over: 8 unit hr, Route: IV, Total Volume: 1,000 mL, Start date: 05/02/11 17:57:00, Duration: 2 day, Stop date: 05/04/11 17:56:00, Replace Every: 8 hr Lactated 2010-06 No Kirsten-Roxane 1,000 mL, [facility] Ringers IV 1-10 B Rate: 125 l 1,000 mL 23:57: [facility] ml/hr, H ermann 00 h Infuse over: 8 hr, Route: IV, Total Volume: 1,000, Start date: 05/02/11 17:57:00, Duration: 30 day, Stop date: 06/01/11 17:56:00 acetaminoph 2010-06 No Kirsten-Roxane 1 tab, [facility] en-hydrocod 1-10 B Route: PO, l one 325 23:57: [facility] Drug Form: [place] mg-5 mg 00 h TAB, Q4H, oral tablet PRN Pain Score 1-3, Start date: 05/02/11 17:57:00, Duration: 30 day, Stop date: 06/01/11 17:56:00 butorphanol 2010-06 No Kirsten-Roxane 2 mg, 1 [facility] 1-10 B mL, Route: l 23:57: [facility] IVP, Drug He rmann 00 h form: INJ, Q2H, PRN Pain Score 6-10, Start date: 05/02/11 17:57:00, Duration: 30 day, Stop date: 06/01/11 17:56:00 ibuprofen 2010-06 No Kirsten-Roxane 800 mg, 2 [facility] 1-10 B tab, l 23:57: [facility] Route: PO, H ermann 00 h Drug form: TAB, Q8H, PRN Other -See Comment, Start date: 05/02/11 17:57:00, Duration: 30 day, Stop date: 06/01/11 17:56:00 ondansetron 2010-06 No Kirsten-Roxane 4 mg, 2 [facility] 1-10 B mL, Route: l 23:57: [facility] IVP, Drug He rmann 00 h form: INJ, Q8H, PRN Nausea & Vomiting, Start date: 05/02/11 17:57:00, Duration: 30 day, Stop date: 06/01/11 17:56:00 Lactated 2010-06 No Kirsten-Roxane 1,000 mL, [facility] Ringers 1-10 B Rate: 100 l Injection 23:57: [facility] ml/hr, Jose Antonio IV 1,000 mL 00 h Infuse over: 10 hr, Route: IV, Total Volume: 1,000, Bolus for regional anesthesia per unit protocol, Start date: 05/02/11 17:57:00, Duration: 30 day, Stop date: 06/01/11 17:56:00 lidocaine 2010-06 No Kirsten-Roxane 20 ml, [facility] 1% 1-10 B Route: l 23:57: [facility] PERCUT, Herm wesley 00 h Drug Form: INJ, PRN, PRN Other -See Comment, Start date: 05/02/11 17:57:00, Duration: 1 doses or times, Stop date: Limited # of times terbutaline 2010-06 No Kirsten-Roxane 0.25 mg, [facility] 1-10 B 0.25 mL, l 23:57: [facility] Route: Amrita nn 00 h SUB-Q, Drug form: INJ, PRN, PRN Other -See Comment, Start date: 05/02/11 17:57:00, Duration: 1 doses or times, Stop date: Limited # of times Lactated 2010-06 No Kirsten-Roxane 20 unit, [facility] Ringers 1-10 B 1,000 mL, l 1000ml+Sesar 23:57: [facility] Rate: 125 [place] juno 20 00 h ml/hr, units IV Infuse (Premix) 20 over: 8 unit hr, Route: IV, Total Volume: 1,000 mL, Start date: 05/02/11 17:57:00, Duration: 2 day, Stop date: 05/04/11 17:56:00, Replace Every: 8 hr Lactated 2010-06 No Kirsten-Roxane 1,000 mL, [facility] Ringers IV 1-10 B Rate: 125 l 1,000 mL 23:57: [facility] ml/hr, H ermann 00 h Infuse over: 8 hr, Route: IV, Total Volume: 1,000, Start date: 05/02/11 17:57:00, Duration: 30 day, Stop date: 06/01/11 17:56:00 acetaminoph 2010-06 No Kirsten-Roxane 1 tab, [facility] en-hydrocod 1-10 B Route: PO, l one 325 23:57: [facility] Drug Form: [place] mg-5 mg 00 h TAB, Q4H, oral tablet PRN Pain Score 1-3, Start date: 05/02/11 17:57:00, Duration: 30 day, Stop date: 06/01/11 17:56:00 butorphanol 2010-06 No Kirsten-Roxane 2 mg, 1 [facility] 1-10 B mL, Route: l 23:57: [facility] IVP, Drug He rmann 00 h form: INJ, Q2H, PRN Pain Score 6-10, Start date: 05/02/11 17:57:00, Duration: 30 day, Stop date: 06/01/11 17:56:00 ibuprofen 2010-06 No Kirsten-Roxane 800 mg, 2 [facility] 1-10 B tab, l 23:57: [facility] Route: PO, H ermann 00 h Drug form: TAB, Q8H, PRN Other -See Comment, Start date: 05/02/11 17:57:00, Duration: 30 day, Stop date: 06/01/11 17:56:00 ondansetron 2010-06 No Kirsten-Roxane 4 mg, 2 [facility] 1-10 B mL, Route: l 23:57: [facility] IVP, Drug He rmann 00 h form: INJ, Q8H, PRN Nausea & Vomiting, Start date: 05/02/11 17:57:00, Duration: 30 day, Stop date: 06/01/11 17:56:00 Lactated 2010-06 No Kirsten-Roxane 1,000 mL, [facility] Ringers 1-10 B Rate: 100 l Injection 23:57: [facility] ml/hr, Jose Antonio IV 1,000 mL 00 h Infuse over: 10 hr, Route: IV, Total Volume: 1,000, Bolus for regional anesthesia per unit protocol, Start date: 05/02/11 17:57:00, Duration: 30 day, Stop date: 06/01/11 17:56:00 lidocaine 2010-06 No Kirsten-Roxane 20 ml, [facility] 1% 1-10 B Route: l 23:57: [facility] PERCUT, Herm wesley 00 h Drug Form: INJ, PRN, PRN Other -See Comment, Start date: 05/02/11 17:57:00, Duration: 1 doses or times, Stop date: Limited # of times terbutaline 2010-06 No Kirsten-Roxane 0.25 mg, [facility] 1-10 B 0.25 mL, l 23:57: [facility] Route: Amrita nn 00 h SUB-Q, Drug form: INJ, PRN, PRN Other -See Comment, Start date: 05/02/11 17:57:00, Duration: 1 doses or times, Stop date: Limited # of times Lactated 2010-06 No Kirsten-Roxane 20 unit, [facility] Ringers 1-10 B 1,000 mL, l 1000ml+Sesar 23:57: [facility] Rate: 125 Jose Antonio juno 20 00 h ml/hr, units IV Infuse (Premix) 20 over: 8 unit hr, Route: IV, Total Volume: 1,000 mL, Start date: 05/02/11 17:57:00, Duration: 2 day, Stop date: 05/04/11 17:56:00, Replace Every: 8 hr Lactated 2010-06 No Kirsten-Roxane 1,000 mL, [facility] Ringers IV 1-10 B Rate: 125 l 1,000 mL 23:57: [facility] ml/hr, H ermann 00 h Infuse over: 8 hr, Route: IV, Total Volume: 1,000, Start date: 05/02/11 17:57:00, Duration: 30 day, Stop date: 06/01/11 17:56:00 acetaminoph 2010-06 No Kirsten-Roxane 1 tab, [facility] en-hydrocod 1-10 B Route: PO, l one 325 23:57: [facility] Drug Form: [place] mg-5 mg 00 h TAB, Q4H, oral tablet PRN Pain Score 1-3, Start date: 05/02/11 17:57:00, Duration: 30 day, Stop date: 06/01/11 17:56:00 butorphanol 2010-06 No Kirsten-Roxane 2 mg, 1 [facility] 1-10 B mL, Route: l 23:57: [facility] IVP, Drug He rmann 00 h form: INJ, Q2H, PRN Pain Score 6-10, Start date: 05/02/11 17:57:00, Duration: 30 day, Stop date: 06/01/11 17:56:00 ibuprofen 2010-06 No Kirsten-Roxane 800 mg, 2 [facility] 1-10 B tab, l 23:57: [facility] Route: PO, H ermann 00 h Drug form: TAB, Q8H, PRN Other -See Comment, Start date: 05/02/11 17:57:00, Duration: 30 day, Stop date: 06/01/11 17:56:00 ondansetron 2010-06 No Kirsten-Roxane 4 mg, 2 [facility] 1-10 B mL, Route: l 23:57: [facility] IVP, Drug He rmann 00 h form: INJ, Q8H, PRN Nausea & Vomiting, Start date: 05/02/11 17:57:00, Duration: 30 day, Stop date: 06/01/11 17:56:00 Lactated 2010-06 No Kirsten-Roxane 1,000 mL, [facility] Ringers 1-10 B Rate: 100 l Injection 23:57: [facility] ml/hr, [place] IV 1,000 mL 00 h Infuse over: 10 hr, Route: IV, Total Volume: 1,000, Bolus for regional anesthesia per unit protocol, Start date: 05/02/11 17:57:00, Duration: 30 day, Stop date: 06/01/11 17:56:00 lidocaine 2010-06 No Kirsten-Roxane 20 ml, [facility] 1% 1-10 B Route: l 23:57: [facility] PERCUT, Herm wesley 00 h Drug Form: INJ, PRN, PRN Other -See Comment, Start date: 05/02/11 17:57:00, Duration: 1 doses or times, Stop date: Limited # of times terbutaline 2010-06 No Kirsten-Roxane 0.25 mg, [facility] 1-10 B 0.25 mL, l 23:57: [facility] Route: Amrita nn 00 h SUB-Q, Drug form: INJ, PRN, PRN Other -See Comment, Start date: 05/02/11 17:57:00, Duration: 1 doses or times, Stop date: Limited # of times Lactated 2010-06 No Kirsten-Roxane 20 unit, [facility] Ringers 1-10 B 1,000 mL, l 1000ml+Sesar 23:57: [facility] Rate: 125 [place] juno 20 00 h ml/hr, units IV Infuse (Premix) 20 over: 8 unit hr, Route: IV, Total Volume: 1,000 mL, Start date: 05/02/11 17:57:00, Duration: 2 day, Stop date: 05/04/11 17:56:00, Replace Every: 8 hr Lactated 2010-06 No Kirsten-Roxane 1,000 mL, [facility] Ringers IV 1-10 B Rate: 125 l 1,000 mL 23:57: [facility] ml/hr, H ermann 00 h Infuse over: 8 hr, Route: IV, Total Volume: 1,000, Start date: 05/02/11 17:57:00, Duration: 30 day, Stop date: 06/01/11 17:56:00 acetaminoph 2010-06 No Kirsten-Roxane 1 tab, [facility] en-hydrocod 1-10 B Route: PO, l one 325 23:57: [facility] Drug Form: Jose Antonio mg-5 mg 00 h TAB, Q4H, oral tablet PRN Pain Score 1-3, Start date: 05/02/11 17:57:00, Duration: 30 day, Stop date: 06/01/11 17:56:00 butorphanol 2010-06 No Kirsten-Roxane 2 mg, 1 [facility] 1-10 B mL, Route: l 23:57: [facility] IVP, Drug He rmann 00 h form: INJ, Q2H, PRN Pain Score 6-10, Start date: 05/02/11 17:57:00, Duration: 30 day, Stop date: 06/01/11 17:56:00 ibuprofen 2010-06 No Kirsten-Roxane 800 mg, 2 [facility] 1-10 B tab, l 23:57: [facility] Route: PO, H ermann 00 h Drug form: TAB, Q8H, PRN Other -See Comment, Start date: 05/02/11 17:57:00, Duration: 30 day, Stop date: 06/01/11 17:56:00 ondansetron 2010-06 No Kirsten-Roxane 4 mg, 2 [facility] 1-10 B mL, Route: l 23:57: [facility] IVP, Drug He rmann 00 h form: INJ, Q8H, PRN Nausea & Vomiting, Start date: 05/02/11 17:57:00, Duration: 30 day, Stop date: 06/01/11 17:56:00 Lactated 2010-06 No Kirsten-Roxane 1,000 mL, [facility] Ringers 1-10 B Rate: 100 l Injection 23:57: [facility] ml/hr, Jose Antonio IV 1,000 mL 00 h Infuse over: 10 hr, Route: IV, Total Volume: 1,000, Bolus for regional anesthesia per unit protocol, Start date: 05/02/11 17:57:00, Duration: 30 day, Stop date: 06/01/11 17:56:00 lidocaine 2010-06 No Kirsten-Roxane 20 ml, [facility] 1% 1-10 B Route: l 23:57: [facility] PERCUT, Herm wesley 00 h Drug Form: INJ, PRN, PRN Other -See Comment, Start date: 05/02/11 17:57:00, Duration: 1 doses or times, Stop date: Limited # of times terbutaline 2010-06 No Kirsten-Roxane 0.25 mg, [facility] 1-10 B 0.25 mL, l 23:57: [facility] Route: Amrita nn 00 h SUB-Q, Drug form: INJ, PRN, PRN Other -See Comment, Start date: 05/02/11 17:57:00, Duration: 1 doses or times, Stop date: Limited # of times Lactated 2010-06 No Kirsten-Roxane 20 unit, [facility] Ringers 1-10 B 1,000 mL, l 1000ml+Sesar 23:57: [facility] Rate: 125 [place] juno 20 00 h ml/hr, units IV Infuse (Premix) 20 over: 8 unit hr, Route: IV, Total Volume: 1,000 mL, Start date: 05/02/11 17:57:00, Duration: 2 day, Stop date: 05/04/11 17:56:00, Replace Every: 8 hr Lactated 2010-06 No Kirsten-Roxane 1,000 mL, [facility] Ringers IV 1-10 B Rate: 125 l 1,000 mL 23:57: [facility] ml/hr, H ermann 00 h Infuse over: 8 hr, Route: IV, Total Volume: 1,000, Start date: 05/02/11 17:57:00, Duration: 30 day, Stop date: 06/01/11 17:56:00 acetaminoph 2010-06 No Kirsten-Roxane 1 tab, [facility] en-hydrocod 1-10 B Route: PO, l one 325 23:57: [facility] Drug Form: [place] mg-5 mg 00 h TAB, Q4H, oral tablet PRN Pain Score 1-3, Start date: 05/02/11 17:57:00, Duration: 30 day, Stop date: 06/01/11 17:56:00 butorphanol 2010-06 No Kirsten-Roxane 2 mg, 1 [facility] 1-10 B mL, Route: l 23:57: [facility] IVP, Drug He rmann 00 h form: INJ, Q2H, PRN Pain Score 6-10, Start date: 05/02/11 17:57:00, Duration: 30 day, Stop date: 06/01/11 17:56:00 ibuprofen 2010-06 No Kirsten-Roxane 800 mg, 2 [facility] 1-10 B tab, l 23:57: [facility] Route: PO, H ermann 00 h Drug form: TAB, Q8H, PRN Other -See Comment, Start date: 05/02/11 17:57:00, Duration: 30 day, Stop date: 06/01/11 17:56:00 ondansetron 2010-06 No Kirsten-Roxane 4 mg, 2 [facility] 1-10 B mL, Route: l 23:57: [facility] IVP, Drug He rmann 00 h form: INJ, Q8H, PRN Nausea & Vomiting, Start date: 05/02/11 17:57:00, Duration: 30 day, Stop date: 06/01/11 17:56:00 BD No Edgardo Agustin 15 mL, [facility] a Posiflush 03-13 [place] Route: l SF 05:40: IVP, Drug Jose Antonio 00 Form: INJ, PRN, PRN Line Flush, Start date: 03/13/11 0:40:00, Duration: 30 day, Stop date: 04/12/11 0:39:00 BD No Edgardo Agustin 15 mL, [facility] a Posiflush 03-13 [place] Route: l SF 05:40: IVP, Drug [place] 00 Form: INJ, PRN, PRN Line Flush, Start date: 03/13/11 0:40:00, Duration: 30 day, Stop date: 04/12/11 0:39:00 BD No Edgardo Agustin 15 mL, [facility] a Posiflush 03-13 [place] Route: l SF 05:40: IVP, Drug Jose Antonio 00 Form: INJ, PRN, PRN Line Flush, Start date: 03/13/11 0:40:00, Duration: 30 day, Stop date: 04/12/11 0:39:00 BD No Edgardo Agustin 15 mL, [facility] a Posiflush 03-13 [place] Route: l SF 05:40: IVP, Drug Jose Antonio 00 Form: INJ, PRN, PRN Line Flush, Start date: 03/13/11 0:40:00, Duration: 30 day, Stop date: 04/12/11 0:39:00 BD No Edgardo Agustin 15 mL, [facility] a Posiflush 03-13 [place] Route: l SF 05:40: IVP, Drug Jose Antonio 00 Form: INJ, PRN, PRN Line Flush, Start date: 03/13/11 0:40:00, Duration: 30 day, Stop date: 04/12/11 0:39:00 BD No Edgardo Agustin 15 mL, [facility] a Posiflush 03-13 [place] Route: l SF 05:40: IVP, Drug [place] 00 Form: INJ, PRN, PRN Line Flush, Start date: 03/13/11 0:40:00, Duration: 30 day, Stop date: 04/12/11 0:39:00 BD No Edgardo Agustin 15 mL, [facility] a Posiflush 03-13 [place] Route: l SF 05:40: IVP, Drug [place] 00 Form: INJ, PRN, PRN Line Flush, Start date: 03/13/11 0:40:00, Duration: 30 day, Stop date: 04/12/11 0:39:00 Lactated No Edgardo Agustin 1,000 mL, [facility] Ringers 03-13 [place] Rate: 125 l Injection 05:39: ml/hr, Nimesh n IV 1000 mL 00 Infuse over: 8 hr, Route: IV, Total Volume: 1,000, Start date: 03/13/11 0:39:00, Duration: 30 day, Stop date: 04/12/11 0:38:00 Lactated 2010-0 No Edgardo Agustin 1,000 mL, [facility] Ringers - [place] Rate: 125 l Injection 05:39: ml/hr, Nimesh n IV 1000 mL 00 Infuse over: 8 hr, Route: IV, Total Volume: 1,000, Start date: 03/13/11 0:39:00, Duration: 30 day, Stop date: 04/12/11 0:38:00 Lactated 0 No Edgardo Agustin 1,000 mL, [facility] Ringers 9- [place] Rate: 125 l Injection 05:39: ml/hr, Nimesh n IV 1000 mL 00 Infuse over: 8 hr, Route: IV, Total Volume: 1,000, Start date: 03/13/11 0:39:00, Duration: 30 day, Stop date: 04/12/11 0:38:00 Lactated 0 No Edgardo Agustin 1,000 mL, [facility] Ringers - [place] Rate: 125 l Injection 05:39: ml/hr, Nimesh n IV 1000 mL 00 Infuse over: 8 hr, Route: IV, Total Volume: 1,000, Start date: 03/13/11 0:39:00, Duration: 30 day, Stop date: 04/12/11 0:38:00 Lactated 0 No Edgardo Agustin 1,000 mL, [facility] Ringers - [place] Rate: 125 l Injection 05:39: ml/hr, Nimesh n IV 1000 mL 00 Infuse over: 8 hr, Route: IV, Total Volume: 1,000, Start date: 03/13/11 0:39:00, Duration: 30 day, Stop date: 04/12/11 0:38:00 Lactated 0 No Edgardo Agustin 1,000 mL, [facility] Ringers 9- [place] Rate: 125 l Injection 05:39: ml/hr, Nimesh n IV 1000 mL 00 Infuse over: 8 hr, Route: IV, Total Volume: 1,000, Start date: 03/13/11 0:39:00, Duration: 30 day, Stop date: 04/12/11 0:38:00 Lactated 2010-0 No Edgardo Thompsonn 1,000 mL, [facility] Ringers - [place] Rate: 125 l Injection 05:39: ml/hr, Nimesh wheeler IV 1000 mL 00 Infuse over: 8 hr, Route: IV, Total Volume: 1,000, Start date: 03/13/11 0:39:00, Duration: 30 day, Stop date: 04/12/11 0:38:00 metFORMIN metFORMIN Yes [facility] [place] HCl ER HCl ER Physici (OSM) 1000 (OSM) 1000 ans MG Oral MG Oral Tablet Tablet Extended Extended Release 24 Release 24 Hour Hour Lisinopril Lisinopril Yes [facility] [place] 10 MG Oral 10 MG Oral Phy sici Tablet Tablet ans Nortriptyli Nortriptyli Yes [facility] U T ne HCl - 75 ne HCl - 75 P hysici MG Oral MG Oral ans Capsule Capsule [facility] Yes [facility] U T a SUSP a SUSP [facility]ici ans Immunizations Ordered Immunization Filled Immunization Date Status Commen ts Source Name Name influenza virus 2015-04-29 Completed [facility], inactivated 00:57:00 [facility] influenza virus 2015-04-29 Completed [facility], inactivated 00:57:00 [facility] influenza virus 2015-04-29 Completed [facility], inactivated 00:57:00 [facility] influenza virus 2015-04-29 Completed [facility], inactivated 00:57:00 [facility] influenza virus 2015-04-29 Completed [facility], inactivated 00:57:00 [facility] influenza virus 2015-04-29 Completed [facility], inactivated 00:57:00 [facility] influenza virus 2015-04-29 Completed [facility], inactivated 00:57:00 [facility] diphtheria/pertussis 2013-05-18 Completed [facility] rial , acel/tetanus 06:00:00 Jose Antonio adult<sup>1</sup> diphtheria/pertussis 2013-05-18 Completed [facility] rial , acel/tetanus 06:00:00 Jose Antonio adult<sup>1</sup> diphtheria/pertussis 2013-05-18 Completed [facility] , acel/tetanus 06:00:00 Jose Antonio adult<sup>1</sup> diphtheria/pertussis 2013-05-18 Completed [facility] , acel/tetanus 06:00:00 [place] adult<sup>1</sup> diphtheria/pertussis 2013-05-18 Completed [facility] rial , acel/tetanus 06:00:00 Jose Antonio adult<sup>1</sup> diphtheria/pertussis 2013-05-18 Completed [facility] rial , acel/tetanus 06:00:00 [place] adult<sup>1</sup> diphtheria/pertussis 2013-05-18 Completed [facility] rial , acel/tetanus 06:00:00 [place] adult<sup>1</sup> Hx influenza 2013-04-19 Completed [facility]-un[facility]< 16:35:45 [facility] sup>2</sup> Hx influenza 2013-04-19 Completed [facility] vaccine-unspecified< 16:35:45 [facility] sup>2</sup> Hx influenza 2013-04-19 Completed [facility] vaccine-unspecified< 16:35:45 [facility] sup>2</sup> Hx influenza 2013-04-19 Completed [facility] vaccine-unspecified< 16:35:45 [facility] sup>2</sup> Hx influenza 2013-04-19 Completed [facility] vaccine-unspecified< 16:35:45 [facility] sup>2</sup> Hx influenza 2013-04-19 Completed [facility] vaccine-un[facility]< 16:35:45 [facility] sup>2</sup> Hx influenza 2013-04-19 Completed [facility] vaccine-un[facility]< 16:35:45 [facility] sup>2</sup> Vital Signs Vital Name Observation Time Observation Value Comments Source Systolic blood 2022-11-19 127 mm[Hg] [facility] pressure 21:17:00 Diastolic blood 2022-11-19 88 mm[Hg] [facility] pressure :17:00 Heart rate 2022-11-19 92 /min [facility] :17:00 Body temperature 2022-11-19 36.44 Chloé [facility] 21:17:00 Body weight 2022-11-19 91.627 kg [facility] 21:17:00 BMI 2022-11-19 36.95 kg/m2 [facility] 21:17:00 Systolic blood 2022-10-30 132 mm[Hg] [facility] pressure 20:37:00 Diastolic blood 2022-10-30 95 mm[Hg] [facility] pressure 20:37:00 Heart rate 2022-10-30 83 /min [facility] 20:37:00 Body weight 2022-10-30 92.987 kg [facility] 20:36:00 BMI 2022-10-30 37.49 kg/m2 [facility] 20:36:00 Body temperature 2022-10-30 36.89 Chloé [facility] 20:36:00 Body height 2022-10-30 157.5 cm [facility] 20:36:00 Systolic blood 2022-09-11 123 mm[Hg] [facility] pressure 20:28:00 Diastolic blood 2022-09-11 86 mm[Hg] [facility] pressure 20:28:00 Heart rate 2022-09-11 94 /min [facility] 20:28:00 Body temperature 2022-09-11 36.67 Chloé [facility] 20:28:00 Body weight 2022-09-11 94.802 kg [facility] 20:28:00 BMI 2022-09-11 38.23 kg/m2 [facility] 20:28:00 Height 2022-08-09 157.48 CM 22:11:00 Weight 2022-08-09 93.89 KG 22:11:00 Height 2022-07-15 157.48 CM 23:47:00 Weight 2022-07-15 93.44 KG 23:47:00 Systolic blood 2022-07-04 124 mm[Hg] [facility] pressure 21:16:00 Diastolic blood 2022-07-04 77 mm[Hg] [facility] pressure 21:16:00 Heart rate 2022-07-04 106 /min [facility] 21:16:00 Body temperature 2022-07-04 36.89 Chloé [facility] 21:16:00 Body weight 2022-07-04 92.987 kg [facility] 21:16:00 BMI 2022-07-04 37.49 kg/m2 [facility] 21:16:00 Height 2022-06-27 157.48 CM 19:57:00 Weight 2022-06-27 90.71 KG 19:57:00 Systolic blood 2022-06-24 127 mm[Hg] [facility] pressure 16:36:[address] [facility] Diastolic blood 2022-06-24 82 mm[Hg] [facility] pressure 16:36:[address] [facility] Heart rate 2022-06-24 82 /min [facility] 16:36[facility] [facility] Body height 2022-06-24 157.5 cm [facility] 16:36:[address] [facility] Body weight 2022-06-24 92.534 kg [facility] 16:36:[address] [facility] BMI 2022-06-24 37.31 kg/m2 [facility] 16:36:[address] [facility] Oxygen saturation 2022-06-24 99 /min [facility] Arterial blood 16:36:00 [facility] by Pulse oximetry [place] Systolic blood 2022-04-15 122 mm[Hg] [facility] pressure 19:51:00 Diastolic blood 2022-04-15 79 mm[Hg] [facility] pressure 19:51:00 Heart rate 2022-04-15 91 /min [facility] 19:51:00 Body temperature 2022-04-15 36.89 Chloé [facility] 19:51:00 Body weight 2022-04-15 92.987 kg [facility] 19:51:00 BMI 2022-04-15 37.49 kg/m2 [facility] 19:51:00 Systolic blood 2022-01-21 116 mm[Hg] [facility] pressure 20:30:00 Diastolic blood 2022-01-21 82 mm[Hg] [facility] pressure 20:30:00 Heart rate 2022-01-21 89 /min [facility] 20:30:00 Body temperature 2022-01-21 36.89 [place]loé [facility] 20:30:00 Body height 2022-01-21 157.5 cm [facility] 20:30:00 Body weight 2022-01-21 92.534 kg [facility] 20:30:00 BMI 2022-01-21 37.31 kg/m2 [facility] 20:30:00 Weight 2021-12-25 90.71 KG 14:00:00 Height 2021-12-25 157.48 CM 13:29:00 Systolic blood 2021-11-02 118 mm[Hg] [facility] pressure 14:24:[address] [facility] Diastolic blood 2021-11-02 73 mm[Hg] [facility] o f pressure 14:24:[address] [facility] Heart rate 2021-11-02 82 /min [facility] 14:24:[address] [facility] Body temperature 2021-11-02 36.56 Chloé [facility] 14:24:[address] [facility] Respiratory rate 2021-11-02 16 /min [facility] 14:24:[address] [facility] Body height 2021-11-02 157.5 cm [facility] of 14:24:[address] [facility] Body weight 2021-11-02 93.441 kg University of 14:24:[address] [facility] BMI 2021-11-02 37.68 kg/m2 University of 14:24:[address] [facility] Oxygen saturation 2021-11-02 98 /min [facility] in Arterial blood 14:24:00 [facility] by Pulse oximetry Branch Height 2021-08-31 157.48 CM 09:46:00 Weight 2021-08-31 95.25 KG 09:46:00 Systolic blood 2020-12-08 116 mm[Hg] [facility] pressure 20:34:[address] [facility] Diastolic blood 2020-12-08 78 mm[Hg] [facility] f pressure 20:34:[address] [facility] Heart rate 2020-12-08 104 /min [facility] of 20:34:[address] [facility] Body height 2020-12-08 157.5 cm [facility] 20:34:[address] [facility] Body weight 2020-12-08 93.441 kg University of 20:34:[address] [facility] BMI 2020-12-08 37.68 kg/m2 [facility] 20:34:[address] [facility] Oxygen saturation 2020-12-08 94 /min [facility] in Arterial blood 20:34:00 [facility] by Pulse oximetry [place] Systolic blood 2020-11-25 114 mm[Hg] [facility] pressure 00:19:[address] [facility] Diastolic blood 2020-11-25 70 mm[Hg] [facility] f pressure 00:19:[address] [facility] Heart rate 2020-11-25 90 /min [facility] of 00:19:[address] [facility] Body temperature 2020-11-25 37.33 [place] University 00:19:[address] [facility] Respiratory rate 2020-11-25 14 /min [facility] of 00:19:[address] [facility] Oxygen saturation 2020-11-25 97 /min [facility] in Arterial blood 00:19:54 [facility] by Pulse oximetry [place] Body weight 2020-11-24 90.719 kg University of 21:35:[address] [facility] BMI 2020-11-24 36.58 kg/m2 University of 21:35:[address] [facility] Systolic blood 2020-10-27 118 mm[Hg] [facility] pressure 18:12:[address] [facility] Diastolic blood 2020-10-27 80 mm[Hg] [facility] pressure 18:12:[address] [facility] Heart rate 2020-10-27 96 /min [facility] 18:12:00 [facility] Body temperature 2020-10-27 36.72 Chloé [facility] 18:12:00 [facility] Body height 2020-10-27 157.5 cm University of 18:12:[address] [facility] Body weight 2020-10-27 90.719 kg University of 18:12:[address] [facility] BMI 2020-10-27 36.58 kg/m2 University of 18:12:[address] [facility] Oxygen saturation 2020-10-27 97 /min [facility] in Arterial blood 18:12:00 [facility] Pulse oximetry [facility] Systolic blood 2020-08-05 130 mm[Hg] [facility] pressure 22:28:00 [facility] Diastolic blood 2020-08-05 68 mm[Hg] [facility] o f pressure 22:28:[address] [facility] Heart rate 2020-08-05 98 /min [facility] of 22:28:[address] [facility] Body temperature 2020-08-05 37.89 Chloé [facility] of 22:28:[address] [facility] Respiratory rate 2020-08-05 16 /min [facility] of 22:28:[address] [facility] Body height 2020-08-05 157.5 cm University of 22:28:[address] [facility] Body weight 2020-08-05 91.173 kg University of 22:28:[address] [facility] BMI 2020-08-05 36.76 kg/m2 University of 22:28:[address] [facility] Oxygen saturation 2020-08-05 98 /min [facility] in Arterial blood 22:28:00 [facility] Pulse oxim[facility] Systolic blood 2020-08-05 130 mm[Hg] [facility] pressure 22:28:00 [facility] Diastolic blood 2020-08-05 68 mm[Hg] [facility] pressure 22:28:00 [facility] Heart rate 2020-08-05 98 /min [facility] 22:28:[address] [facility] Body temperature 2020-08-05 37.89 Chloé [facility] 22:28:00 [facility] Respiratory rate 2020-08-05 16 /min [facility] 22:28:00 [facility] Body height 2020-08-05 157.5 cm University of 22:28:[address] [facility] Body weight 2020-08-05 91.173 kg University of 22:28:[address] [facility] BMI 2020-08-05 36.76 kg/m2 [facility] 22:28:[address] [facility] Oxygen saturation 2020-08-05 98 /min [facility] in Arterial blood 22:28:00 [facility] by Pulse oximetry [place] Height 2019-07-03 157.48 CM 12:47:00 Weight 2019-07-03 99.33 KG 12:47:00 Height 2018-07-08 157.48 CM 14:46:00 Weight 2018-07-08 99.79 KG 14:46:00 Systolic blood 2020-08-31 118 mm[Hg] [facility] 11:51:00 Position: Sitting Diastolic blood 2020-08-31 83 mm[Hg] [facility] 11:51:00 Position: Sitting Body height 2020-08-31 62 [in_us] [facility] 11:51:00 Weight 2020-08-31 203 [lb_av] [facility] 11:51:00 Body mass index 2020-08-31 37.13 kg/m2 [facility] (BMI) [Ratio] 11:51:00 Body temperature 2020-08-31 97.4 [degF] Method: [facility] 11:51:00 Temporal Heart Rate 2020-08-31 92 /min [facility] 11:51:00 Systolic blood 2020-05-29 126 mm[Hg] [facility] 09:32:00 Position: Sitting Diastolic blood 2020-05-29 97 mm[Hg] [facility] 09:32:00 Position: Sitting Body height 2020-05-29 62 [in_us] [facility] 09:32:00 Weight 2020-05-29 203 [lb_av] [facility] 09:32:00 Body mass index 2020-05-29 37.13 kg/m2 [facility] (BMI) [Ratio] 09:32:00 Body temperature 2020-05-29 97.7 [degF] Method: [facility] 09:32:00 Temporal Heart Rate 2020-05-29 99 /min [facility] 09:32:00 Systolic blood 2020-03-20 129 mm[Hg] [facility] 11:11:00 Position: Sitting Diastolic blood 2020-03-20 90 mm[Hg] [facility] 11:11:00 Position: Sitting Body height 2020-03-20 62 [in_us] [facility] 11:11:00 Weight 2020-03-20 215 [lb_av] [facility] 11:11:00 Body mass index 2020-03-20 39.32 kg/m2 [facility] (BMI) [Ratio] 11:11:00 Body temperature 2020-03-20 97.3 [degF] Method: [facility] 11:11:00 Temporal Heart Rate 2020-03-20 88 /min [facility] 11:11:00 Systolic blood 2019-12-28 126 mm[Hg] [facility]; [facility] 09:33:00 Position: Sitting Diastolic blood 2019-12-28 84 mm[Hg] [facility] 09:33:00 Position: Sitting Body height 2019-12-28 62 [in_us] [facility] 09:33:00 Weight 2019-12-28 226 [lb_av] [facility] 09:33:00 Body mass index 2019-12-28 41.34 kg/m2 [facility] (BMI) [Ratio] 09:33:00 Body temperature 2019-12-28 97.2 [degF] Method: [facility] 09:33:00 Temporal Heart Rate 2019-12-28 99 /min [facility] 09:33:00 Systolic blood 2019-10-26 126 mm[Hg] [facility] 14:11:00 Diastolic blood 2019-10-26 80 mm[Hg] [facility] 14:11:00 Body height 2019-10-26 62 [in_us] [facility] 14:11:00 Weight 2019-10-26 230 [lb_av] [facility] 14:11:00 Body mass index 2019-10-26 42.07 kg/m2 [facility] (BMI) [Ratio] 14:11:00 Body temperature 2019-10-26 97.6 [degF] Method: [facility] 14:11:00 Temporal Heart Rate 2019-10-26 106 /min [facility] 14:11:00 Systolic blood 2019-08-17 126 mm[Hg] [facility]; [facility] 10:03:00 Position: Sitting Diastolic blood 2019-08-17 86 mm[Hg] Location: [facility]; [facility] 10:03:00 Position: Sitting Body height 2019-08-17 62 [in_us] [facility] 10:03:00 Weight 2019-08-17 218 [lb_av] [facility] 10:03:00 Body mass index 2019-08-17 39.87 kg/m2 [facility] (BMI) [Ratio] 10:03:00 Heart Rate 2019-08-17 96 /min [facility] 10:03:00 BP Systolic 2019-06-09 111 mm[Hg] Location: [facility]; [facility] 15:29:00 Position: Sitting BP Diastolic 2019-06-09 78 mm[Hg] Location: [facility] 15:29:00 Position: Sitting Height 2019-06-09 62 [in_us] [facility] 15:29:00 Weight 2019-06-09 219 [lb_av] [facility] 15:29:00 Body Mass Index 2019-06-09 40.06 kg/m2 [facility] Calculated 15:29:00 Heart Rate 2019-06-09 113 /min [facility] 15:29:00 Systolic (mm Hg) 2019-03-22 [facility] 21:17:00 Diastolic (mm Hg) 2019-03-22 [facility] 21:17:00 Heart Rate 2019-03-22 [facility] 21:17:00 Height 2019-03-22 154.94 cm [facility] 21:17:00 Weight 2019-03-22 [facility] 21:17:00 BMI Calculated 2019-03-22 [facility] 21:17:00 Weight 2018-12-31 [facility] 21:16:00 Heart Rate 2018-12-31 [facility] 21:16:00 Systolic (mm Hg) 2018-12-31 [facility] 21:16:00 Diastolic (mm Hg) 2018-12-31 [facility] 21:16:00 Weight 2018-10-22 [facility] 21:16:00 BMI Calculated 2018-10-22 [facility] 21:16:00 Height 2018-10-22 154.94 cm [facility] 21:16:00 Heart Rate 2018-10-22 [facility] 21:16:00 Systolic (mm Hg) 2018-10-22 [facility] 21:16:00 Diastolic (mm Hg) 2018-10-22 [facility] 21:16:00 Weight 2018-08-12 [facility] 21:47:00 Height 2018-08-12 154.94 cm [facility] 21:47:00 BMI Calculated 2018-08-12 [facility] 21:47:00 Heart Rate 2018-08-12 [facility] 21:47:00 Systolic (mm Hg) 2018-08-12 [facility] 21:47:00 Diastolic (mm Hg) 2018-08-12 [facility] 21:47:00 BMI Calculated 2018-06-03 [facility] 21:59:00 Weight 2018-06-03 [facility] 21:59:00 Height 2018-06-03 154.94 cm [facility] 21:59:00 Heart Rate 2018-06-03 [facility] 21:59:00 Systolic (mm Hg) 2018-06-03 [facility] 21:59:00 Diastolic (mm Hg) 2018-06-03 [facility] 21:59:00 Weight 2018-03-26 [facility] 21:55:00 BMI Calculated 2018-03-26 [facility] 21:55:00 Height 2018-03-26 154.94 cm [facility] 21:55:00 Heart Rate 2018-03-26 [facility] 21:55:00 Systolic (mm Hg) 2018-03-26 [facility] 21:55:00 Diastolic (mm Hg) 2018-03-26 [facility] 21:55:00 BMI Calculated 2018-01-13 [facility] 20:33:00 Weight 2018-01-13 [facility] 20:33:00 Height 2018-01-13 154.94 cm [facility] 20:33:00 Heart Rate 2018-01-13 [facility] 20:33:00 Systolic (mm Hg) 2018-01-13 [facility] 20:33:00 Diastolic (mm Hg) 2018-01-13 [facility] 20:33:00 Heart Rate 2017-11-05 [facility] 20:14:00 BMI Calculated 2017-11-05 [facility] 20:14:00 Weight 2017-11-05 [facility] 20:14:00 Height 2017-11-05 154.94 cm [facility] 20:14:00 Systolic (mm Hg) 2017-11-05 [facility] 20:14:00 Diastolic (mm Hg) 2017-11-05 [facility] 20:14:00 Heart Rate 2017-08-18 [facility] 20:43:00 Height 2017-08-18 157.48 cm [facility] 20:43:00 BMI Calculated 2017-08-18 [facility] 20:43:00 Weight 2017-08-18 [facility] 20:43:00 Systolic (mm Hg) 2017-08-18 [facility] 20:43:00 Diastolic (mm Hg) 2017-08-18 [facility] 20:43:00 Weight 2017-06-24 [facility] 14:12:00 Temperature Oral 2017-06-24 99.0 F [facility] (F) 14:12:00 Heart Rate 2017-06-24 [facility] 14:12:00 Systolic (mm Hg) 2017-06-24 [facility] 14:12:00 Diastolic (mm Hg) 2017-06-24 [facility] 14:12:00 Height 2017-06-09 157.48 cm [facility] 22:06:00 Weight 2017-06-09 [facility] 22:06:00 BMI Calculated 2017-06-09 [facility] 22:06:00 Systolic (mm Hg) 2017-06-09 [facility] 22:06:00 Diastolic (mm Hg) 2017-06-09 [facility] 22:06:00 Heart Rate 2017-06-09 [facility] 22:06:00 Systolic (mm Hg) 2017-04-20 [facility] 02:38:00 Diastolic (mm Hg) 2017-04-20 [facility] 02:38:00 Heart Rate 2017-04-20 [facility] 02:38:00 Respitory Rate 2017-04-20 [facility] 02:38:00 Temperature Oral 2017-04-20 98.1 F [facility] (F) 02:38:00 Respitory Rate 2017-04-20 [facility] 00:07:00 Systolic (mm Hg) 2017-04-20 [facility] 00:07:00 Diastolic (mm Hg) 2017-04-20 [facility] 00:07:00 Heart Rate 2017-04-20 [facility] 00:07:00 Temperature Oral 2017-04-20 98.3 F [facility] (F) 00:07:00 Weight 2017-04-20 [facility] 00:07:00 Heart Rate 2017-04-12 [facility] 03:57:00 Temperature Oral 2017-04-12 98.6 F [facility] (F) 03:57:00 Systolic (mm Hg) 2017-04-12 [facility] 03:57:00 Diastolic (mm Hg) 2017-04-12 [facility] 03:57:00 Respitory Rate 2017-04-12 [facility] 03:57:00 Respitory Rate 2017-04-11 [facility] 21:59:00 Heart Rate 2017-04-11 [facility] 21:59:00 Temperature Oral 2017-04-11 97.9 F [facility] (F) 21:59:00 Systolic (mm Hg) 2017-04-11 [facility] 21:59:00 Diastolic (mm Hg) 2017-04-11 [facility] 21:59:00 Weight 2017-04-11 [facility] 21:59:00 Systolic (mm Hg) 2016-04-09 [facility] 22:01:00 Diastolic (mm Hg) 2016-04-09 [facility] 22:01:00 Heart Rate 2016-04-09 [facility] 22:01:00 Temperature Oral 2016-04-09 98 F [facility] (F) 22:01:00 Respitory Rate 2016-04-09 [facility] 22:01:00 Respitory Rate 2016-04-09 [facility] 20:14:00 Systolic (mm Hg) 2016-04-09 [facility] 20:14:00 Diastolic (mm Hg) 2016-04-09 [facility] 20:14:00 Heart Rate 2016-04-09 [facility] 20:14:00 Respitory Rate 2016-04-09 [facility] 17:48:00 Systolic (mm Hg) 2016-04-09 [facility] 17:48:00 Diastolic (mm Hg) 2016-04-09 [facility] 17:48:00 Heart Rate 2016-04-09 [facility] 17:48:00 Temperature Oral 2016-04-09 98.2 F [facility] (F) 15:22:00 BMI Calculated 2016-04-09 [facility] 15:22:00 Height 2016-04-09 157.48 cm [facility] 15:22:00 Weight 2016-04-09 [facility] 15:22:00 Heart Rate 2016-02-24 [facility] 04:25:00 Temperature Oral 2016-02-24 98.1 F [facility] (F) 04:25:00 Systolic (mm Hg) 2016-02-24 [facility] 04[facility]25:00 Diastolic (mm Hg) 2016-02-24 [facility] 04:25:00 Respitory Rate 2016-02-24 [facility] 04:25:00 Weight 2016-02-24 [facility] 03:02:00 Height 2016-02-24 157.48 cm [facility] 03:02:00 Respitory Rate 2016-02-24 [facility] 03:02:00 Heart Rate 2016-02-24 [facility] 03:02:00 Systolic (mm Hg) 2016-02-24 [facility] 03:02:00 Diastolic (mm Hg) 2016-02-24 [facility] 03:02:00 Temperature Oral 2016-02-24 98.1 F [facility] (F) 03:02:00 BMI Calculated 2016-02-24 [facility] 03:02:00 Systolic (mm Hg) 2015-08-12 [facility] 06:29:00 Diastolic (mm Hg) 2015-08-12 [facility] 06:29:00 Heart Rate 2015-08-12 [facility] 06[facility]29:00 Temperature Oral 2015-08-12 98.3 F [facility] (F) 06:29:00 Respitory Rate 2015-08-12 [facility] 06:29:00 Height 2015-08-12 157.48 cm [facility] 01:40:00 Weight 2015-08-12 [facility] 01:40:00 BMI Calculated 2015-08-12 [facility] 01:40:00 Respitory Rate 2015-08-12 [facility] 01:40:00 Systolic (mm Hg) 2015-08-12 [facility] 01:40:00 Diastolic (mm Hg) 2015-08-12 [facility] 01:40:00 Heart Rate 2015-08-12 [facility] 01:40:00 Temperature Oral 2015-08-12 97.9 F [facility] (F) 01:40:00 Temperature Oral 2015-04-30 98.5 F [facility] (F) 13:00:00 Heart Rate 2015-04-30 [facility] 13:00:00 Respitory Rate 2015-04-30 [facility] 13:00:00 Systolic (mm Hg) 2015-04-30 [facility] 13:00:00 Diastolic (mm Hg) 2015-04-30 [facility] 13:00:00 Heart Rate 2015-04-30 [facility] 10:15:00 Respitory Rate 2015-04-30 [facility] 10:15:00 Temperature Oral 2015-04-30 98.5 F [facility] (F) 10:15:00 Systolic (mm Hg) 2015-04-30 [facility] 10:15:00 Diastolic (mm Hg) 2015-04-30 [facility] 10:15:00 Temperature Oral 2015-04-30 98.0 F [facility] (F) 05:02:00 Respitory Rate 2015-04-30 [facility] 05:02:00 Heart Rate 2015-04-30 [facility] 05:02:00 Systolic (mm Hg) 2015-04-30 [facility] 05:02:00 Diastolic (mm Hg) 2015-04-30 [facility] 05:02:00 Height 2015-04-28 157.48 cm [facility] 17:48:00 Weight 2015-04-28 [facility] 17:48:00 BMI Calculated 2015-04-28 [facility] 17:48:00 Height 2015-04-26 157.48 cm [facility] 22:14:00 BMI Calculated 2015-04-26 [facility] 22:14:00 Weight 2015-04-26 [facility] 22:14:00 Heart Rate 2015-04-19 [facility] 08:20:00 Temperature Oral 2015-04-19 98.1 F [facility] (F) 08:20:00 Systolic (mm Hg) 2015-04-19 [facility] 08:20:00 Diastolic (mm Hg) 2015-04-19 [facility] 08:20:00 Respitory Rate 2015-04-19 [facility] 08:20:00 Systolic (mm Hg) 2015-04-19 [facility] 05:46:00 Diastolic (mm Hg) 2015-04-19 [facility] 05:46:00 Heart Rate 2015-04-19 [facility] 05:46:00 Respitory Rate 2015-04-19 [facility] 05:46:00 Temperature Oral 2015-04-19 98.2 F [facility] (F) 05:46:00 Weight 2015-04-18 [facility] 23:52:00 Systolic (mm Hg) 2015-04-18 [facility] 23:52:00 Diastolic (mm Hg) 2015-04-18 [facility] 23:52:00 Heart Rate 2015-04-18 [facility] 23:52:00 Respitory Rate 2015-04-18 [facility] 23:52:00 Temperature Oral 2015-04-18 97.7 F [facility]mann (F) 23:52:00 Diastolic (mm Hg) 2014-03-20 [facility] 20:14:00 Systolic (mm Hg) 2014-03-20 [facility] 20:14:00 Heart Rate 2014-03-20 [facility] 20:14:00 Respitory Rate 2014-03-20 [facility] 20:14:00 Temperature Oral 2014-03-20 97.4 F [facility] (F) 20:14:00 Heart Rate 2014-03-20 [facility] 18:58:00 Diastolic (mm Hg) 2014-03-20 [facility] 18:58:00 Systolic (mm Hg) 2014-03-20 [facility] 18:58:00 Diastolic (mm Hg) 2014-03-20 [facility] 18:43:00 Systolic (mm Hg) 2014-03-20 [facility] 18:43:00 Heart Rate 2014-03-20 [facility] 18:43:00 Respitory Rate 2014-03-20 [facility] 18:43:00 Respitory Rate 2014-03-20 [facility] 18:28:00 Temperature Oral 2014-03-20 97.6 F [facility] (F) 17:33:00 Height 2014-03-20 185.42 cm [facility] 17[facility]32:00 BMI Calculated 2014-03-20 [facility] 17:32:00 Weight 2014-03-20 [facility] 17:32:00 Weight 2014-03-20 [facility] 11:43:00 Temperature Oral 2014-03-20 98.3 F [facility] (F) 11:43:00 Systolic (mm Hg) 2014-03-02 [facility] 00:54:00 Diastolic (mm Hg) 2014-03-02 [facility] 00:54:00 Respitory Rate 2014-03-02 [facility] 00:54:00 Heart Rate 2014-03-02 [facility] 00:54:00 Temperature Oral 2014-03-02 98.3 F [facility] Valenz[facility]a [facility] (F) 00:54:00 Height 2014-03-01 154.94 cm [facility] 21:51:00 Weight 2014-03-01 [facility] 21:51:00 BMI Calculated 2014-03-01 [facility] 21:51:00 Temperature Oral 2014-03-01 98.7 F [facility] (F) 21:51:00 Diastolic (mm Hg) 2014-03-01 [facility] 21:51:00 Systolic (mm Hg) 2014-03-01 [facility] 21:51:00 Respitory Rate 2014-03-01 [facility] 21:51:00 Heart Rate 2014-03-01 [facility] 21:51:00 Weight 2012-11-01 [facility] 01:25:00 Temperature Oral 2011-05-05 98.3 F [facility] Valenzuel[facility] (F) 14:48:00 Systolic (mm Hg) 2011-05-05 [facility] 14:48:00 Respitory Rate 2011-05-05 [facility] 14:48:00 Heart Rate 2011-05-05 [facility] 14:48:00 Diastolic (mm Hg) 2011-05-05 [facility] 14:48:00 Temperature Oral 2011-05-05 97.5 F [facility] (F) 11:00:00 Systolic (mm Hg) 2011-05-05 [facility] 11:00:00 Respitory Rate 2011-05-05 [facility] 11:00:00 Heart Rate 2011-05-05 [facility] 11:00:00 Diastolic (mm Hg) 2011-05-05 [facility] 11:00:00 Diastolic (mm Hg) 2011-05-05 [facility] 02:00:00 Heart Rate 2011-05-05 [facility] 02:00:00 Systolic (mm Hg) 2011-05-05 [facility] 02:00:00 Temperature Oral 2011-05-05 97.5 F [facility] (F) 02:00:00 Respitory Rate 2011-05-04 Omkar olson 23:12:00 Height 2011-05-02 157.48 cm [facility] n 23:57:00 Weight 2011-05-02 [facility] Bea[facility] n 23:57:00 Weight 2011-03-13 [facility] Beavers n 05:31:00 Height 2011-03-13 154.94 cm [facility] n 05:31:00 Procedures Procedure Date / Time Performing Clinician Source Performed POCT URINALYSIS DIPSTICK 2022-10-30 20:58:15 [facility] POCT , URINE 2022-09-11 21:28[facility] ASSIGNMENT OF BENEFITS 2022-06-24 16:13:39 Doctor Unassigned, [facility] Name [facility] CHLAMYDIA/N. GONORRHOEAE 2022-01-21 21:48:00 Edgardo Tsang [facility] RNA, TMA, UROGENITAL POCT TEST 2020-11-24 22:53:00 Galen Estrada [facility] BASIC METABOLIC PANEL (NA, 2020-11-24 22:42:00 Galen Estrada [facility] K, CL, CO2, GLUCOSE, BUN, Medica l Branch CREATININE, CA) CBC WITH DIFF 2020-11-24 22:42:00 Galen Estrada [facility] ASSIGNMENT OF BENEFITS 2020-11-24 22:15:07 Doctor Unassigned, Un [facility] Name [facility] [place] POCT TEST 2020-11-24 21:42:00 [facility] 2020-11-24 21:41:00 Margot Vincent o [facility] CONSENT/REFUSAL FOR 2020-11-24 21:30:14 Doctor Unajacklyn, [facility] DIAGNOSIS AND TREATMENT [facility] ABDOMEN WO CONTRAST 2020-10-27 22:06:56 Alex Glover [facility] COMP. METABOLIC PANEL 2020-10-27 18:57:00 Alex Glover [facility] ([id number]) Medical Branch CBC WITH DIFF 2020-10-27 18:57:00 Belen [facility] URINALYSIS 2020-10-27 18:57:00 Belen [facility] COVID-19 (MOLECULAR 2020-10-27 18:12:00 Alex Glover [facility] TESTING [facility] NUCLEIC ACID AMPLIFICATION) POCT TEST 2020-08-05 23:07:00 Meg Nunes [facility] XR CHEST 2 VW 2020-08-05 22:50:00 Meg Nunes [facility] NOTICE OF PRIVACY 2020-08-05 22:23:08 Doctor Unajacklyn, [facility] PRACTICES Bud [facility] CONSENT/REFUSAL FOR 2020-08-05 22:22:48 Doctor Unajacklyn, [facility] DIAGNOSIS AND TREATMENT Bud [facility] [H] Pap Liquid-based w/ 2019-06-09 00:00:00 [facility] Reflex HPV [QLH] BV/ VAGINITIS PANEL 2019-06-09 00:00:00 [facility] DNA PROBE AFFIRM Exploratory 2015-04-28 06:00:00 [facility] laparotomy<sup>1</sup> Laparoscopic 2014-03-20 05:00:00 [facility] cholecystectomy History of [facility]olecystectomy [facility] History of Ovarian [facility] cystectomy History of Hernia repair [facility] Colonoscopy<sup>2</sup> [facility] End[facility]<sup>3</sup> [facility]. [facility] OOPHERECTOMY Plan of Care Planned Activity Planned Date Details Comments Source Future Scheduled 2022-12-12 COVID-19 [facility]ACCINE [facility] 08:15:58 (#1) [code = COVID-19 VACCINE (#1)] Future Scheduled 2022-12-12 [facility] 08:15:58 malignant neoplasm of cervix (procedure) [code = 926673341] Future Scheduled 2022-12-12 [facility] 08:15:58 [code = INFLUENZA VACCINE] Future Scheduled 2022-09-26 [facility] 13:11:56 malignant neoplasm of cervix (procedure) [code = 339051380] Future Scheduled 2022-09-26 [facility] 13:11:56 [code = INFLUENZA VACCINE] Future Scheduled 2022-09-26 COVID-[address] [facility] [facility] 13:11:56 (#1) [code = COVID-19 VACCINE (#1)] Future Scheduled 2022-09-26 [facility] 13:11:56 malignant neoplasm of cervix (procedure) [code = 864568065] Future Scheduled 2022-09-26 [facility] 13:11:56 [code = INFLUENZA VACCINE] Future Scheduled 2022-09-26 COVID-[address] [facility] [facility] 13:11:56 (#1) [code = COVID-19 VACCINE (#1)] Future Scheduled 2022-06-13 COVID-[address] [facility] 11:40:12 (#1) [code = COVID-19 VACCINE (#1)] Future Scheduled 2022-06-13 [facility] 11:40:12 malignant neoplasm of cervix (procedure) [code = 958026064] Future Scheduled 2022-06-13 [facility] 11:40:12 [code = INFLUENZA VACCINE] Future Scheduled 2022-06-13 COVID[facility] [facility] 11:40:12 (#1) [code = COVID-19 VACCINE (#1)] Future Scheduled 2022-06-13 [facility] 11:40:12 malignant neoplasm of cervix (procedure) [code = 576592763] Future Scheduled 2022-06-13 [facility] 11:40:12 [code = INFLUENZA VACCINE] Future Scheduled COVID-[address] [facility] (1) [code = COVID-19 VACCINE (1)] Future Scheduled [facility] malignant neoplasm of cervix (procedure) [code = 092268604] Future Scheduled [facility] [code = INFLUENZA VACCINE] Encounters Start End Encounter Admission Attending Care Care Encounter Source Date/Time Date/Time Type Type Clinicians Facility Department ID 2022-11-27 [facility] [id number] [place] 10:06:27 [id number] [facility] 2022-11-19 Outpatient [facility] [id number] [place] 15:46:28 [id number] [facility] 2022-10-29 Outpatient [facility] [id number] [place] 13:52:26 [id number] [facility] 2022-10-03 Outpatient [facility] [id number] [place] 09:55:55 [id number] [facility] 2022-09-20 Outpatient NGUYỄN NINO ELCAMPO [id number] [place] 10:02:26 [id number] [facility] 2022-09-19 Outpatient NGUYỄN NINOPO ELCAMPO [id number] [place] 14:33:37 [id number] [facility] 2022-09-11 Outpatient [facility] [id number] [place] 16:33:16 [id number] [facility] 2022-09-06 Outpatient [facility] [id number] [place] 09:01:34 [id number] [facility] 2022-07-11 Outpatient [facility] [id number] [place] 18:03:52 [id number] [facility] 2022-06-02 Outpatient [facility] [id number] [place] 21:05:50 [id number] [facility] 2022-04-15 Outpatient [facility] [id number] [place] 14:48:37 [id number] [facility] 2021-11-27 Outpatient NGUYỄN NINOCAMPO [place] 14:28:33 [id number] [facility] 2021-11-13 Outpatient NGUYỄN NINOCAMPO 000 [place] 10:10:54 [id number] [facility] 2021-09-04 Outpatient KEYONGUERREROI [facility] [id number] [place] 10:59:02 [facility] 2021-06-18 Outpatient KEYONGUERREROAbbi, [facility] [id number] [place] 11:10:10 [facility] 2021-04-22 Emergency [facility] [id number] Univers 23:18:[address] [facility] 2021-03-26 Outpatient KEYONGUERREROAbbi [facility] [id number] [place] 10:18:49 [facility] 2021-01-11 Outpatient SANGALLI, [facility] [id number] [place] 08:39:05 [facility] 2023-01-30 2023-01-30 Outpatient VESELY, [facility] [id number] [place] 16:00:00 16:00:00 [facility] 2022-12-17 2022-12-17 Outpatient N NGUYỄN NINO LAB [id number] [place] 10:13:00 10:13:00 [id number] [facility] 2022-11-28 2022-11-28 Outpatient VESELY, [facility] [id number] [place] 15:30:00 15:30:00 [facility] 2022-11-19 2022-11-19 Office Vesely, [facility] 1.2.840.114 [id number] [place] 16:00:00 16:40:10 Visit Berna MARYLIN 350.1.13.58 He alth [place] 9.2.7.2.686 [place] [id number] 1 2022-10-30 2022-10-30 Office Vesely, [facility] 1.2.840.114 [id number] [place] 15:30:00 16:06:06 Visit Berna MARYLIN 350.1.13.58 He alth [place] 9.2.7.2.686 [place] [id number] 1 2022-10-29 2022-10-29 Outpatient VESELY, [facility] [id number] [place] 15:30:00 15:30:00 [facility] 2022-10-08 2022-10-08 Outpatient NGUYỄN HAMPTON [id number] [place] 10:34:00 00:00:00 [id number] MARYLIN [facility] 2022-10-03 2022-10-03 Outpatient NGUYỄN HAMPTON [id number] [place] 16:48:00 00:00:00 [id number] MARYLIN [facility] 2022-09-19 2022-09-19 Outpatient N NGUYỄN NINO LAB [id number] [place] 14:43:00 14:43:00 [id number] [facility] 2022-09-19 2022-09-19 Outpatient NGUYỄN HAMPTON [id number] 10:03:00 00:00:00 [id number] [facility]ARYLIN [facility] 2022-09-12 2022-09-12 Outpatient JOSEPH, [facility] [id number] [place] 15:00:00 15:00:00 [facility] 2022-09-11 2022-09-11 Office Joseph [facility] 1.2.840.114 [id number] [place] 15:30:00 15:59:29 Visit Berna COULTER 350.1.13.58 He alth [place] 9.2.7.2.686 Freire [id number] 1 2022-08-09 2022-08-10 Outpatient E ZACK, [facility] [id number] [place] 22:01:00 01:40:00 MARTY [facility] 2022-07-15 2022-07-16 Outpatient Enio OSCAR, [facility] [id number] [place] 23:39:00 02:08:00 ALYSON [facility] 2022-07-04 2022-07-04 Office Joseph [facility] 1.2.840.114 [id number] [place] 15:00:00 15:53:53 Visit Berna COULTER 350.1.13.58 He alth [place] 9.2.7.2.686 Freire [id number] 1 2022-06-27 2022-06-27 Outpatient E ZACK [facility] [id number] [facility] 19:49:00 21:39:00 MARTY [facility] 2022-06-25 2022-06-25 Outpatient TRINH, [facility] [id number] [place] 15:15:00 15:15:00 [facility] 2022-06-24 2022-06-24 Outpatient ANTWON VARGHESE [facility] [id number] [facility] 10:40:00 11:36:[address] [facility] 2022-06-24 2022-06-24 Office Karen [facility] 1.2.840.114 [id number] Univers 10:40:00 11:36:16 Visit Antwon [facility] 350.1.13.10 ity of [place] 4.2.7.2.686 Percy as BEV?BLEA [id number] [place] me[address] OFFICE [facility] 2022-06-24 2022-06-24 Orders Doctor MATHIAS 1.2.840.114 [id number] Univers 00:00:00 00:00:00 Only Unassigned, ZIA 350.1.13.10 [facility] 4.2.7.2.686 Percy as [phone] [address] 2022-06-24 2022-06-24 Letter Karen [facility] 1.2.840.114 [id number] Univers 00:00:00 00:00:00 (Out) Antwon [facility] 350.1.13.10 ity [facility] 4.2.7.2.686 Percy as BEV?BLEA [phone] [place] johny [address] OFFICE [facility] 2022-06-10 2022-06-10 Outpatient Leora BOLIVAREANTWON [facility] [id number] [facility] 16:00:00 16:00:[address] [facility] 2022-06-03 2022-06-03 Outpatient JOSEPH, [facility] [id number] [place] 15:30:00 [facility]:30:[facility] 2022-05-07 2022-05-07 Outpatient JOSEPH, [facility] [id number] [place] 15:30:00 16:12:14 [facility] 2022-04-15 2022-04-15 Office VIVI Tsang 1.2.548.477 [id number] [place] 14:45:00 15:24:04 Visit Edgardo COULTER 350.1.13.58 [facility] 9.2.7.2.686 [id number] 1 2022-04-01 2022-04-01 Outpatient TRINH, [facility] [id number] [place] 15:00:00 15:00:00 [facility] 2022-04-01 2022-04-01 Outpatient TRINH, [facility] [id number] [place] 15:00:00 15:00:00 [facility] 2022-02-26 2022-02-26 Outpatient GIRMA Steen BA [facility] [id number] [facility] 18:46:00 20:07:00 [facility] Center 2022-01-26 2022-01-26 Outpatient Leora WEST, [facility] [id number] Univers 19:00:00 19:00:[address] [facility] 2022-01-21 2022-01-21 Office VIVI Tsang 1.2.688.334 [id number] [place] 15:00:00 16:00:38 Visit Edgardo COULTER 350.1.13.58 He alth 9.2.7.2.686 [id number] 1 2021-12-25 2021-12-25 Outpatient Enio SR, [facility] [id number] [facility] 13:16:00 19:06:00 [facility] 2021-12-17 2021-12-17 Telephone Lina Berry [facility] 1.2.840. 114 [id number] [place] 00:00:00 00:00:00 Lina Berry 350.1.13.58 Health 9.2.7.2.686 [id number] 1 2021-12-11 2021-12-11 Office VIVI Tsang 1.2.776.977 [id number] [place] 15:00:00 15:22:50 Visit Edgardo COULTER 350.1.13.58 He alth 9.2.7.2.686 [id number] 1 2021-12-06 2021-12-06 Outpatient TRINH, [facility] [id number] [place] 15:15:00 15:15:00 [facility] 2021-11-29 2021-11-29 Telephone Lina Berry UTP 1.2.840. 114 [id number] [place] 00:00:00 00:00:00 Lina Berry 350.1.13.58 Health 9.2.7.2.686 [id number] 1 2021-11-28 2021-11-28 Telephone Lina Berry [facility]TP 1.2.840. 114 [id number] [place] 00:00:00 00:00:00 Lina Berry 350.1.13.58 Health 9.2.7.2.686 [id number] 1 2021-11-27 2021-11-27 Outpatient Eb KENMAICOL NGUYỄN NINO [id number] [place] 12:20:00 00:00:00 [id number] MARYLIN [facility] 2021-11-22 2021-11-22 Office Josuéabbi UTP 1.2.583.105 [id number] [place] 15:15:00 16:21:57 Visit Edgardo COULTER 350.1.13.58 He alth 9.2.7.2.686 [id number] 1 2021-11-20 2021-11-20 Telephone Lina Berry UTP 1.2.840. 114 [id number] [place] 00:00:00 00:00:00 Lina Berry 350.1.13.58 Health 9.2.7.2.686 [id number] 1 2021-11-20 2021-11-20 Telephone Lina Berry UTP 1.2.840. 114 [id number] [place] 00:00:00 00:00:00 Lina Berry 350.1.13.58 Health 9.2.7.2.686 [id number] 1 2021-11-13 2021-11-13 Office Keyonguerreroabbi UTP 1.2.113.689 [id number] [place] 10:00:00 10:49:43 Visit Edgardo COULTER 350.1.13.58 He alth 9.2.7.2.686 [id number] 1 2021-11-13 2021-11-13 Outpatient Yari KENNGUYỄN MILIAN PANKAJ NON [facility] [id number] [place] 10:12:00 10:12:00 [id number] [facility] 2021-11-02 2021-11-02 Outpatient Leora DODSON [facility] [id number] Univers 09:20:00 09:48:[address] [facility] 2021-11-02 2021-11-02 Urgent Jenny Dodson [facility] 1.2.840.114 [id number] Univers 09:20:00 09:48:37 [facility] Cami Pineda [facility] 350.1.13.10 ity of [place] 4.2.7.2.686 Percy as BEV?BLEA [phone] [place] dicjaneth [facility] [address] [facility] OFFICE BUILDING 2021-09-13 2021-09-13 Lora Jones [facility] 1.2.840.114 [id number] [facility] 00:00:00 00:00:00 Antwon Victoria [place] 350.1.13.10 ity of [place] 4.2.7.2.686 [place] shelby BAILEY [phone] [place] dicjaneth [facility] 092 [facility] 2021-09-04 2021-09-04 Office VIVI Tsang 1.2.533.181 [id number] [place] 10:15:00 10:59:11 Visit Edgardo COULTER 350..13.58 He leroy 9.2.7.2.686 [id number] 1 2021-08-31 2021-08-31 Outpatient Enio HERRING, [facility] [id number] [facility] 09:32:00 09:58:00 [facility] 2021-08-27 2021-08-27 Outpatient TRINH, [facility] [id number] [place] 09:00:00 09:00:00 [facility] 2021-08-21 2021-08-21 Outpatient Leora FOSS III, [facility] [id number] [facility] 11:20:00 11:56:[address] [facility] 2021-06-18 2021-06-18 Office VIVI Tsang 1.2.956.221 [id number] [place] 10:15:00 11:10:40 Visit Edgardo COULTER 350.1.13.58 He leroy 9.2.7.2.686 [id number] 1 2021-04-03 2021-04-03 Telephone Gisele Morris [facility] 1.2.840. 114 [id number] [place] 00:00:00 00:00:00 [place], Gisele SUGAR 350.1.13.58 Health [facility] 9.2.7.2.686 [address] 7 [phone] AND 2 WOMENS 2021-03-26 2021-03-26 Office Trinh VIVI 1.2.262.864 [id number] [place] 09:29:50 10:18:50 Visit Edgardo COULTER 350.1.13.58 He alth 9.2.7.2.686 [id number] 1 2021-02-22 2021-02-22 Telephone Lina Berry UTP 1.2.840. 114 [id number] [place] 00:00:00 00:00:00 Lina Berry 350.1.13.58 Health 9.2.7.2.686 [id number] 1 2021-02-16 2021-02-16 Office Trinh VIVI 1.2.973.915 [id number] [place] 09:47:39 10:19:43 Visit Edgardo COULTER 350.1.13.58 He alth 9.2.7.2.686 [id number] 1 2021-01-23 2021-01-23 Telephone Lina Berry UTP 1.2.840. 114 [id number] [place] 00:00:00 00:00:00 Lina Berry 350.1.13.58 Health 9.2.7.2.686 [id number] 1 2021-01-18 2021-01-18 Office Trinh VIVI 1.2.974.726 [id number] [place] 13:51:17 14:39:50 Visit Edgardo COULTER 350.1.13.58 He alth 9.2.7.2.686 [id number] 1 2021-01-16 2021-01-16 Telephone Lina Berry UTP 1.2.840. 114 [id number] [place] 00:00:00 00:00:00 Lina Berry 350.1.13.58 Health 9.2.7.2.686 [id number] 1 2021-01-03 2021-01-03 Telephone MIRZA Jones 1.2.840.114 [id number] 00:00:00 00:00:00 Antwon Hoskins 350.1.13.10 [place] 4.2.7.2.686 Professio [phone] [address] 2021-01-03 2021-01-03 Telephone Karen [facility] 1.2.840.114 [id number] Univers 00:00:00 00:00:00 Antwon Hoskins 350.1.13.10 ity of [place] Profess[place] [phone] [address] 2020-12-26 2020-12-26 [facility] 1.2.840.114 [id number] [facility] 00:00:00 00:00:00 Antwon Hoskins 350.1.13.10 ity of [place] [phone] [address] 2020-12-08 2020-12-08 [facility] 1.2.840.114 [id number] [facility] 15:27:19 16:13:41 Visit Antwon Hoskins 350.1.13.10 ity of [place].2.[place] Profess[place] [phone] [address] 2020-12-08 2020-12-08 Outpatient Leora SARABIAKAREN, ANTWON [facility] [id number] Univers 15:20:00 15:20:[address] [facility] 2020-12-08 2020-12-08 Outpatient ANTWON VARGHESE [facility] [id number] Univers 15:20:00 15:20:[address] [facility] 2020-11-24 2020-11-24 Emergency [facility] 1.2.840.114 [id number] Univers 16:43:00 19:32:00 Galen Hoskins 350.1.13.10 i ty of [place].2.686 [place] [phone] [address] 2020-11-09 2020-11-09 Office VIVI Tsang 1.2.678.606 [id number] 13:38:32 14:25:04 Visit Edgardo COUTLER 350.1.13.58 9.2.7.2.686 [id number] 1 2020-11-09 2020-11-09 Office VIVI Tsang 1.2.879.365 [id number] [place] 13:38:32 14:25:04 Visit Edgardo COULTER 350.1.13.58 He [facility] 9.2.7.2.686 [id number] 1 2020-10-27 2020-10-27 [facility] 1.2.840.114 [id number] Univers 16:44:59 23:59:00 Encounter Alex Hoskins 350.1.13.10 ity of [place] 4.2.7.2.686 [facility] [phone] [address] 2020-10-27 2020-10-27 Urgent Provider, [facility] 1.2.840.114 [id number] Univers 13:08:02 13:45:02 Care Alex Glover [facility] 350.1.13.10 ity [facility] 4.2.7.2.686 [facility] as Professio [phone] [address] Office [facility] 2020-10-27 2020-10-27 [facility] [id number] [facility] 13:00:00 13:00:[address] [facility] 2020-08-31 2020-08-31 AppointVIVI [facility] [id number] [place] 11:30:00 11:30:00 t; Jim EDGAR. Center - Ph Marylin Rosa M.D. 2020-08-05 2020-08-05 Emergency [facility] 1.2.840.114 [id number] 16:33:00 18:12:00 Meg Hoskins 350.1.13.10 [place] 4.2.7.2.686 [place] [id number] 084 2020-08-05 2020-08-05 Emergency [facility] 1.2.840.114 [id number] Univers 16:33:00 18:12:00 Meg Hoskins 350.1.13.10 [facility] 4.2.7.2.686 [facility] [phone] [place] 012364 [place] 2020-08-05 2020-08-05 Emergency X DES, [facility] ERT [id number] Univers 16:22:00 16:22:00 [facility] 2020-05-29 2020-05-29 Appointmen KEYONMARCO A, [facility]'s [id number] [place] 09:00:00 09:00:00 t; Joyce EDGAR Center - Ph Corie Zuñigaarton will EDGAR M.D. 2020-03-20 2020-03-20 Appointmen KEYONMARCO A, [facility]'s [id number] [place] 10:45:00 10:45:00 t; Joyce EDGAR Center - Ph Corie Zuñigaarton will EDGAR M.D. 2019-12-28 2019-12-28 Appointmen SANGMARCO A, [facility] [id number] [place] 09:00:00 09:00:00 t; Joyce EDGAR Center - Ph jessica TSANG, [place] will EDGAR M.D. 2019-10-26 2019-10-26 [facility] KEYONMARCO A, [facility] [id number] [place] 13:45:00 13:45:00 t; Joyce EDGAR Center - Ph jessica TSANG [place] will EDGAR M.D. 2019-08-17 2019-08-17 Appointmen KEYONMARCO A, [facility] [id number] [place] 10:00:00 10:00:00 t; Joyce EDGAR Center - Ph jessica TSANG, [place] will EDGAR M.D. 2019-07-03 2019-07-03 Emergency E TONYA, [facility] [id number] [facility] 12:28:00 14:30:00 STEW Mas [facility] 2019-06-09 2019-06-09 Appointmen KEYONMARCO A, [facility] Women's [id number] 071 [place] 14:30:00 14:30:00 t; Joyce EDGAR Center - Ph ysici SANGALLAbbi, [place] will EDGAR M.D. 2019-05-31 2019-05-31 Ambulatory nullFlavo [facility] stereotype finisher 3 [id number] Memoria 15:00:00 15:00:00 Pre-Reg r Phelps 49 l Jose Antonio 2019-05-31 2019-05-31 Ambulatory nullFlavo [facility] stereotype finisher 3 [id number] Memoria 15:00:00 15:00:00 Pre-Reg r [place] 49 l [place] 2019-05-31 2019-05-31 Outpatient MHIE MHIE [id number] Memoria 09:00:00 09:00:00 49 l Jose Antonio 2019-05-31 2019-05-31 [place] [id number] 09:00:00 09:00:00 Edgardo Agustin 49 2019-03-22 2019-03-23 Outpatient nullFlavo [facility] stereotype finisher 3 [id number] Memoria 20:45:00 04:59:59 r Marylin 47 pam Jose Antonio 2019-03-22 2019-03-23 Outpatient nullFlavo [facility] stereotype finisher 3 [id number] Memoria 20:45:00 04:59:59 r Marylin 47 pam [place] 2019-03-22 2019-03-22 [place] [id number] 15:45:00 23:59:59 Edgardo Thompsonn 47 2019-03-22 2019-03-22 Ambulatory nullFlavo [facility] Family 3 [id number] Memoria 20:30:00 20:30:00 Pre-Reg r Medicine 48 pam Coulter [place] 2019-03-22 2019-03-22 Ambulatory nullFlavo [facility] Family 3 [id number] Memoria 20:30:00 20:30:00 Pre-Reg r Medicine 48 pam Coulter [place] 2019-03-22 2019-03-22 Outpatient MHIE MHIE [id number] Memoria 15:45:00 15:45:00 47 pam [place] 2019-03-22 2019-03-22 Outpatient MHIE MHIE [id number] Memoria 15:30:00 15:30:00 48 l [place] 2019-03-22 2019-03-22 Outpatient Constanza MG MG [id number] 15:30:00 15:30:00 [place] 50 al Rebeca 2018-12-31 2019-01-01 Outpatient nullFlavo [facility] Family 3 [id number] Memoria 21:00:00 04:59:59 r Medicine 46 pam Coulter [place] 2018-12-31 2019-01-01 Outpatient nullFlavo [facility] Family 3 [id number] Memoria 21:00:00 04:59:59 r Medicine 46 pam Coulter Jose Antonio 2018-12-31 2018-12-31 Outpatient Car[place], MG [facility] [id number] 16:00:00 23:59:59 [place] 48 al Rebeca 2018-12-31 2018-12-31 Outpatient MHIE MHIE [id number] Memoria 16:00:00 16:00:00 48 pam Jose Antonio 2018-10-22 2018-10-23 Outpatient nullFlavo [facility] COBOL MAINFRAME DEVELOPER 3 [id number] Memoria 21:00:00 04:59:59 r Phelps 45 pam Jose Antonio 2018-10-22 2018-10-23 Outpatient nullFlavo [facility] COBOL MAINFRAME DEVELOPER 3 [id number] Memoria 21:00:00 04:59:59 r Marylin 45 pam Jose Antonio 2018-10-22 2018-10-22 [place] [id number] 16:00:00 23:59:59 Edgardo Velez 45 2018-10-22 2018-10-22 Outpatient MHIE MHIE [id number] Memoria 16:00:00 16:00:00 47 pam Brady 2018-08-12 2018-08-13 Outpatient nullFlavo [facility] COBOL MAINFRAME DEVELOPER 3 [id number] Memoria 21:45:00 05:59:59 r Phelps 44 pam Jose Antonio 2018-08-12 2018-08-13 Outpatient nullFlavo [facility] COBOL MAINFRAME DEVELOPER 3 [id number] Memoria 21:45:00 05:59:59 r Phelps 44 pam Jose Antonio 2018-08-12 2018-08-12 Outpatient Sangalli, [facility] [id number] 15:45:00 23:59:59 Edgardo Velez 44 2018-08-12 2018-08-12 Outpatient MHIE MHIE [id number] Memoria 15:45:00 15:45:00 46 pam Brady 2018-07-08 2018-07-08 Outpatient Enio SR [facility] [id number] [facility] 14:46:00 17:15:00 AMBERLY Medica [facility] 2018-06-03 2018-06-04 Outpatient nullFlavo [facility] COBOL MAINFRAME DEVELOPER 3 [id number] Memoria 21:45:00 05:59:[address] [facility] 2018-06-03 2018-06-04 Outpatient nullFlavo [facility] COBOL MAINFRAME DEVELOPER 3 [id number] Memoria 21:45:00 05:59:[address] [facility] 2018-06-03 2018-06-03 Outpatient Sangalli, [facility] [id number] 15:45:00 23:59:59 Edgardo Velez 43 2018-06-03 2018-06-03 Outpatient MHIE [facility] [id number] Memoria 15:45:00 15:45:[address] [facility] 2018-03-26 2018-03-27 Outpatient nullFlavo [facility] [employer] DEVELOPER 3 [id number] Memoria 21:00:00 04:59:[address] [facility] 2018-03-26 2018-03-27 Outpatient nullFlavo [facility] [employer] DEVELOPER 3 [id number] Memoria 21:00:00 04:59:[address] [facility] 2018-03-26 2018-03-26 Outpatient Sangalli, [facility] [id number] 16:00:00 23:59:59 Edgardo Velez 42 2018-03-26 2018-03-26 Outpatient MHIE MHIE [id number] Memoria 16:00:00 16:00:[address] [facility] 2018-02-01 2018-02-01 Outpatient Enio [facility] [id number] [place] 07:39:00 08:44:00 М[facility]Я [facility] 2018-01-13 2018-01-14 Outpatient nullFlavo [facility] [employer] DEVELOPER 3 [id number] Memoria 20:00:00 04:59:[address] [facility] 2018-01-13 2018-01-14 Outpatient nullFlavo [facility] [employer] DEVELOPER 3 [id number] Memoria 20:00:00 04:59:[address] [facility] 2018-01-13 2018-01-13 Outpatient Sangalli, [facility] [id number] 15:00:00 23:59:59 Edgardo Velez 41 2018-01-13 2018-01-13 Outpatient Sangalli, [facility] [id number] 15:00:00 23:59:59 Edgardo Velez 41 2018-01-13 2018-01-13 Outpatient MHIE [facility] [id number] Memoria 15:00:00 15:00:00 41 [place] 2017-11-05 2017-11-06 Outpatient nullFlavo [facility] [employer] DEVELOPER 3 [id number] Memoria 19:15:00 04:59:[address] [facility] 2017-11-05 2017-11-06 Outpatient nullFlavo [facility] [employer] DEVELOPER 3 [id number] Memoria 19:15:00 04:59:[address] [facility] 2017-11-05 2017-11-05 [place] [id number] 14:15:00 23:59:59 Edgardo Velez 40 2017-11-05 2017-11-05 Outpatient MHIE MHIE [id number] Memoria 14:15:00 14:15:00 42 pam [place] 2017-10-30 2017-10-30 Ambulatory nullFlavo [facility] [employer] DEVELOPER 3 [id number] Memoria 16:30:00 16:30:00 Pre-Reg r Phelps 39 pam [place] 2017-10-30 2017-10-30 Ambulatory nullFlavo [facility] [employer]IN[employer] DEVELOPER 3 [id number] Memoria 16:30:00 16:30:00 Pre-Reg r Marylin 39 pam Jose Antonio 2017-10-30 2017-10-30 Outpatient MHIE MHIE [id number] Memoria 11:30:00 11:30:00 41 pam [place] 2017-10-30 2017-10-30 [place] [id number] 11:30:00 11:30:00 Edgardo Velez 39 2017-10-30 2017-10-30 Outpatient Sangalli, [facility] [id number] 11:30:00 11:30:00 Edgardo Velez 39 2017-08-18 2017-08-19 Outpatient nullFlavo [facility] [employer] DEVELOPER 3 [id number] Memoria 20:30:00 05:59:59 r Marylin 37 pam [place] 2017-08-18 2017-08-19 Outpatient nullFlavo MG [employer] DEVELOPER 3 [id number] Memoria 20:30:00 05:59:59 r Marylin 37 pam [place] 2017-08-18 2017-08-18 Outpatient Keyonalli, MG [place] [id number] 14:30:00 23:59:59 Edgardo Velez 37 2017-08-18 2017-08-18 Outpatient MHIE MHIE [id number] Memoria 14:30:00 14:30:00 37 pam Brady 2017-06-24 2017-06-25 Outpatient nullFlavo MG Family 3 [id number] Memoria 13:45:00 05:59:59 r Medicine 38 pam Brady 2017-06-24 2017-06-25 Outpatient nullFlavo MG Family 3 [id number] Memoria 13:45:00 05:59:59 r Medicine 38 pam Brady 2017-06-24 2017-06-24 Outpatient [place], MG MG [id number] 07:45:00 23:59:59 Norbert 38 2017-06-24 2017-06-24 Outpatient MHIE MHIE [id number] Memoria 07:45:00 07:45:00 38 pam Brady 2017-06-09 2017-06-10 Outpatient nullFlavo MG [employer]BOL MAINFRAME DEVELOPER 3 [id number] Memoria 21:45:00 05:59:59 r Marylin 36 pam Brady 2017-06-09 2017-06-10 Outpatient nullFlavo MG COBOL MAINFRAME DEVELOPER 3 [id number] Memoria 21:45:00 05:59:59 r Marylin 36 pam Brady 2017-06-09 2017-06-09 [place] [id number] 15:45:00 23:59:59 dEgardo Velez 36 2017-06-09 2017-06-09 Outpatient MHIE MHIE [id number] Memoria 15:45:00 15:45:00 36 pam Jose Antonio 2017-04-20 2017-04-20 Emergency [facility] [id number] Memoria 00:04:00 02:45:00 r Jose Antonio 18 l Cardale Amriat nn 2017-04-20 2017-04-20 Emergency [facility] [id number] Memoria 00:04:00 02:45:00 r [place] 18 l Card[facility] Amrita nn 2017-04-19 2017-04-19 Outpatient Alyson Montes SL [place] [id number] 19:04:00 21:45:00 Leticia 18 2017-04-11 2017-04-12 Emergency [facility] [id number] Memoria 21:53:00 04:07:00 r Jose Antonio 17 l Cardale Amrita nn 2017-04-11 2017-04-12 Emergency nullFlavo [facility] [id number] Memoria 21:53:00 04:07:00 r Jose Antonio 17 l Cardale Amrita nn 2017-04-11 2017-04-11 Outpatient Cj Evans SL [place] [id number] 16:53:00 23:07:00 Y 17 2017-03-27 2017-03-27 Outpatient MHIE MHIE [id number] Memoria 09:00:00 09:00:00 35 l [place] 2017-03-27 2017-03-27 Outpatient MHIE MHIE [id number] Memoria 09:00:00 09:00:00 35 l [place] 2017-01-16 2017-01-16 Outpatient MHIE MHIE [id number] Memoria 09:00:00 09:00:00 33 l [place] 2017-01-16 2017-01-16 Outpatient MHIE MHIE [id number] Memoria 09:00:00 09:00:00 33 l [place] 2016-12-16 2016-12-16 Outpatient MHIE MHIE [id number] Memoria 16:00:00 16:00:00 34 l [place] 2016-12-16 2016-12-16 Outpatient MHIE MHIE [id number] Memoria 16:00:00 16:00:00 36 l Josea Ntonio 2016-11-07 2016-11-07 Outpatient MHIE MHIE [id number] Memoria 09:00:00 09:00:00 32 l [place] 2016-11-07 2016-11-07 Outpatient MHIE MHIE [id number] Memoria 09:00:00 09:00:00 32 l [place] 2016-08-29 2016-08-29 Outpatient MHIE MHIE [id number] Memoria 09:00:00 09:00:00 29 l Jose Antonio 2016-08-29 2016-08-29 Outpatient MHIE MHIE [id number] Memoria 09:00:00 09:00:00 29 pam Brady 2016-07-22 2016-07-22 Outpatient MHIE MHIE [id number] Memoria 09:30:00 09:30:00 31 pam Brady 2016-07-22 2016-07-22 Outpatient MHIE MHIE [id number] Memoria 09:30:00 09:30:00 31 pam Brady 2016-07-22 2016-07-22 Outpatient MHIE MHIE [id number] Memoria 09:00:00 09:00:00 28 pam Brayd 2016-07-22 2016-07-22 Outpatient MHIE MHIE [id number] Memoria 09:00:00 09:00:00 28 pam Brady 2016-07-11 2016-07-11 Outpatient MHIE MHIE [id number] Memoria 13:00:00 13:00:00 30 pam Brady 2016-07-11 2016-07-11 Outpatient MHIE MHIE [id number] Memoria 13:00:00 13:00:00 27 pam Brady 2016-07-11 2016-07-11 Outpatient MHIE MHIE [id number] Memoria 13:00:00 13:00:00 27 pam Brady 2016-07-11 2016-07-11 Outpatient MHIE MHIE [id number] Memoria 13:00:00 13:00:00 30 pam Brady 2016-06-20 2016-06-20 Outpatient MHIE MHIE [id number] Memoria 13:45:00 13:45:00 26 pam Brady 2016-06-20 2016-06-20 Outpatient MHIE MHIE [id number] Memoria 13:45:00 13:45:00 26 pam Brady 2016-06-12 2016-06-12 Outpatient MHIE MHIE [id number] Memoria 15:30:00 15:30:00 24 pam Brady 2016-06-12 2016-06-12 Outpatient MHIE MHIE [id number] Memoria 15:30:00 15:30:00 24 pam Brady 2016-04-09 2016-04-09 Emergency nullFlavo [facility] [id number] Memoria 15:01:00 22:03:00 leora Brady 15 l [place] Amrita nn 2016-04-09 2016-04-09 Emergency [facility] [id number] Memoria 15:01:00 22:03:00 r Jose Antonio 15 l [place] Amrita nn 2016-04-09 2016-04-09 Outpatient NIKO HoSL MHSL [id number] 10:01:00 17:03:00 Alyson Rincon 15 2016-04-08 2016-04-08 Outpatient MHIE MHIE [id number] Memoria 11:30:00 11:30:00 23 pam Brady 2016-04-08 2016-04-08 Outpatient MHIE MHIE [id number] Memoria 11:30:00 11:30:00 23 pam Brady 2016-04-08 2016-04-08 Outpatient MHIE MHIE [id number] Memoria 08:45:00 08:45:00 25 pam Brady 2016-04-08 2016-04-08 Outpatient MHIE MHIE [id number] Memoria 08:45:00 08:45:00 25 pam Brady 2016-02-24 2016-02-24 Emergency [facility] [id number] Memoria 03:02:00 04:25:00 r Jose Antonio 14 l [place] Amrita nn 2016-02-24 2016-02-24 Emergency [facility] [id number] Memoria 03:02:00 04:25:00 r Jose Antonio 14 l Card[place] Amrita nn 2016-02-23 2016-02-23 Outpatient Vasquez MHSL MHSL [id number] 22:02:00 23:25:00 Estuardo Brooks 2016-01-22 2016-01-22 Outpatient MHIE MHIE [id number] Memoria 16:00:00 16:00:00 22 pam Brady 2016-01-22 2016-01-22 Outpatient MHIE MHIE [id number] Memoria 16:00:00 16:00:00 22 pam Brady 2015-11-06 2015-11-06 Outpatient MHIE MHIE [id number] Memoria 13:45:00 13:45:00 21 pam Brady 2015-11-06 2015-11-06 Outpatient MHIE MHIE [id number] Memoria 13:45:00 13:45:00 21 pam Brady 2015-09-21 2015-09-21 Outpatient MHIE MHIE [id number] Memoria 15:40:00 15:40:00 20 pam Jose Antonio 2015-09-21 2015-09-21 Outpatient MHIE MHIE [id number] Memoria 15:40:00 15:40:00 20 pam Brady 2015-08-28 2015-08-28 Outpatient MHIE MHIE [id number] Memoria 13:45:00 13:45:00 13 pam Brady 2015-08-28 2015-08-28 Outpatient MHIE MHIE [id number] Memoria 13:45:00 13:45:00 13 pam Brady 2015-08-17 2015-08-17 Outpatient MHIE MHIE [id number] Memoria 16:00:00 16:00:00 19 pam Jose Antonio 2015-08-17 2015-08-17 Outpatient MHIE MHIE [id number] Memoria 16:00:00 16:00:00 19 pam Jose Antonio 2015-08-12 2015-08-12 EC [facility] [id number] Memoria 01:28:00 06:57:00 Emergency r [place] 07 l Center [facility] Amrita 2015-08-12 2015-08-12 EC [facility] [id number] Memoria 01:28:00 06:57:00 Emergency r [place] 07 l Center [facility] Amrita 2015-08-11 2015-08-12 Outpatient Soo, MHSL MHSL [id number] 19:28:00 00:57:00 Casie Keo Srinivasan 2015-07-05 2015-07-05 Outpatient MHIE MHIE [id number] Memoria 14:30:00 14:30:00 12 pam Brady 2015-07-05 2015-07-05 Outpatient MHIE MHIE [id number] Memoria 14:30:00 14:30:00 12 pam Brady 2015-07-05 2015-07-05 Outpatient MHIE MHIE [id number] Memoria 14:00:00 14:00:00 11 pam Brady 2015-07-05 2015-07-05 Outpatient MHIE MHIE [id number] Memoria 14:00:00 14:00:00 15 pam Brady 2015-07-05 2015-07-05 Outpatient MHIE MHIE [id number] Memoria 14:00:00 14:00:00 16 pam Brady 2015-07-05 2015-07-05 Outpatient MHIE MHIE [id number] Memoria 14:00:00 14:00:00 17 pam Brady 2015-07-05 2015-07-05 Outpatient MHIE MHIE [id number] Memoria 14:00:00 14:00:00 11 pam Brady 2015-07-05 2015-07-05 Outpatient MHIE MHIE [id number] Memoria 14:00:00 14:00:00 16 pam Brady 2015-07-05 2015-07-05 Outpatient MHIE MHIE [id number] Memoria 14:00:00 14:00:00 15 pam Brady 2015-07-05 2015-07-05 Outpatient MHIE MHIE [id number] Memoria 14:00:00 14:00:00 17 pam Brady 2015-07-04 2015-07-04 Outpatient MHIE MHIE [id number] Memoria 16:20:00 16:20:00 14 pam Brady 2015-07-04 2015-07-04 Outpatient MHIE MHIE [id number] Memoria 16:20:00 16:20:00 14 pam Brady 2015-06-19 2015-06-19 Outpatient MHIE MHIE [id number] Memoria 13:45:00 13:45:00 06 pam Brady 2015-06-19 2015-06-19 Outpatient MHIE MHIE [id number] Memoria 13:45:00 13:45:00 06 pam Brady 2015-06-05 2015-06-05 Outpatient MHIE MHIE [id number] Memoria 15:45:00 15:45:00 04 pam Brady 2015-06-05 2015-06-05 Outpatient MHIE MHIE [id number] Memoria 15:45:00 15:45:00 04 pam Brady 2015-06-05 2015-06-05 Outpatient MHIE MHIE [id number] Memoria 13:45:00 13:45:00 10 pam Brady 2015-06-05 2015-06-05 Outpatient MHIE MHIE [id number] Memoria 13:45:00 13:45:00 10 pam Brady 2015-05-08 2015-05-08 Outpatient MHIE MHIE [id number] Memoria 14:00:00 14:00:00 09 pam Brady 2015-05-08 2015-05-08 Outpatient MHIE MHIE [id number] Memoria 14:00:00 14:00:00 09 l Jose Antonio 2015-04-28 2015-04-30 [facility]patient [facility] [id number] Memoria 12:07:00 20:52:00 r Jose Antonio 05 l Cardale Amrita 2015-04-28 2015-04-30 Inpatient [facility] [id number] Memoria 12:07:00 20:52:00 r Jose Antonio 05 l Card[place] Amrita 2015-04-28 2015-04-30 [place] [id number] 06:07:00 14:52:00 Edgardo Agustin 05 2015-04-27 2015-04-27 Outpatient MHIE MHIE [id number] Memoria 15:45:00 15:45:00 08 pam Brady 2015-04-27 2015-04-27 Outpatient MHIE MHIE [id number] Memoria 15:45:00 15:45:00 08 pam Brady 2015-04-24 2015-04-24 Outpatient MHIE MHIE [id number] Memoria 11:00:00 11:00:00 07 pam Brady 2015-04-24 2015-04-24 Outpatient MHIE MHIE [id number] Memoria 11:00:00 11:00:00 07 pam Brady 2015-04-18 2015-04-19 EC [facility] [id number] Memoria 23:47:00 08:30:00 Emergency r [place] 04 l [place] Card[facility] Amrita 2015-04-18 2015-04-19 EC [facility] [id number] Memoria 23:47:00 08:30:00 Emergency r [place] 04 l [place] Cardale Amrita 2015-04-18 2015-04-19 Outpatient Georges Posada MHSL S [id number] 18:47:00 03:30:00 04 2015-04-11 2015-04-11 Outpatient MHIE MHIE [id number] Memoria 15:00:00 15:00:00 05 pam Brady 2015-04-11 2015-04-11 Outpatient MHIE MHIE [id number] Memoria 15:00:00 15:00:00 05 pam Brady 2015-04-11 2015-04-11 Outpatient MHIE MHIE [id number] Memoria 14:15:00 14:15:00 00 pam Brady 2015-04-11 2015-04-11 Outpatient MHIE MHIE [id number] Memoria 14:15:00 14:15:00 00 pam Brady 2015-03-06 2015-03-06 Outpatient MHIE MHIE [id number] Memoria 15:30:00 15:30:00 01 pam Brady 2015-03-06 2015-03-06 Outpatient MHIE MHIE [id number] Memoria 15:30:00 15:30:00 01 pam Brady 2015-03-06 2015-03-06 Outpatient MHIE MHIE [id number] Memoria 09:45:00 09:45:00 02 pam Brady 2015-03-06 2015-03-06 Outpatient MHIE MHIE [id number] Memoria 09:45:00 09:45:00 02 pam Brady 2015-03-06 2015-03-06 Outpatient MHIE MHIE [id number] Memoria 08:45:00 08:45:00 03 apm Brady 2015-03-06 2015-03-06 Outpatient MHIE MHIE [id number] Memoria 08:45:00 08:45:00 03 pam Brady 2014-03-20 2014-03-21 OBS [facility] [id number] Memoria 11:37:00 00:45:00 Observatio r [place] 02 l n Patient Cardale thomas 2014-03-20 2014-03-21 OBS [facility] [id number] Memoria 11:37:00 00:45:00 Observatio r [place] 02 l n Patient Cardale [facility] 2014-03-20 2014-03-20 Outpatient Bill De [id number]. [id number] 06:37:00 19:45:00 Gt, [id number] [place] P [id number] 4294-09-09 2014-03-02 EC [facility] [id number] Memoria 21:39:00 01:00:00 Emergency r [place] 01 l Center Card[facility] Amrita 2014-03-01 2014-03-02 EC [facility] [id number] Memoria 21:39:00 01:00:00 Emergency r [place] 01 l Center Card[facility] Amrita 2014-03-01 2014-03-01 Outpatient Farooq Armas [id number] 16:39:00 20:00:00 Si [id number] [id number] 5625-05-11 2012-10-31 Emergency nullFlavo [id number] Memoria 20:03:00 23:44:00 r [place] 01 l [place] 2012-10-31 2012-10-31 Emergency nullFlavo [id number] Memoria 20:03:00 23:44:00 r [place] 01 l [place] 2011-05-02 2011-05-02 Inpatient nullFlavo [id number] Memoria 17:38:00 17:38:00 r [place] 79 l [place] 2011-05-02 2011-05-02 Inpatient nullFlavo [id number] Memoria 17:38:00 17:38:00 r [place] 79 l [place] 2011-03-13 2011-03-13 OU nullFlavo [id number] Memoria 00:20:00 03:05:00 r [place] 64 l [place] 2011-03-13 2011-03-13 OU nullFlavo [id number] Memoria 00:20:00 03:05:00 r [place] 64 l [place] Results Test Description Test Time Test Comments Results Result Comments Source POCT urinalysis dipstick manually resulted 2022-10-30 20:58: 15 Test Item Value Reference Range Interpretation Comme nts Glucose, UA (test code = 1000 mg/dL Negative A 1824308) Bilirubin, UA (test code = Negative Negative 9951928) Ketones, Urine (test code = Trace Negative, Trace 82008-6) Spec Grav, UA (test code = 1.020 887273568) Blood, UA (test code = Trace 904959190) pH, UA (test code = 6.0 5.0-8.5 9720850) Protein, UA (test code = Trace Negative, Trace, 5501017) 200(+2)mg/dL, 15/mg/dL Urobilinogen, UA (test code 0.2 See_Comment [Automated message] The = 5447797) system which ge nerated this result tra nsmitted reference range : 0.2. The reference r kenneth was not used to int erpret this result as normal/abnormal . Nitrite, UA (test code = Negative Negative, Trace 3101101) Leukocytes, UA (test code = Small Negative, Trace A 3342010) Lab Interpretation (test Abnormal code = 72367-3) [facility] , urine manually [id number] 21:28:00 Test Item Value Reference Range Interpretation Comments Preg Test, Ur (test code = 4359631) Negative Negative Lab Interpretation (test code = Normal 91914-7) [facility]22[facility]10 01:12:00 Test Item Value Reference Range Interpretation Comments TROPONIN I (test code = GTPI) <0.05 ng/mL <=0.05 CT PE PROTOCOL *OW*2022-08-10 01:11:18 [facility] 1985 Sex: FExam: CTA thorax with contrast.Location: 12History: Chest painTechnique: Enhanced spiral slices were taken from the apices of the lungs, through the upper. Multiplanar, MIP and/or 3D reformations were performed. One or more of the following dose reduction techniques were used: Automated exposure control, adjustment of the mA and/or kV according to patient size, and/or utilization of iterative reconstruction technique.Findings:No filling defects are seen in the main pulmonary arteries. The pulmonary vasculature is normal. No pulmonary venous congestion or arterial hypertension is seen.The lungs are clear. Noinfiltration or effusion is seen.The mediastinum and the pulmonary phyllis are normal. No lymphadenopathy is present. The heart size is normal. No pericardial effusion is seen.Thevisualized upper abdominal organs are unremarkable.No incidental thyroid nodules are noted.Impression:1. Negative for pulmonary embolism.2. No acute disease.Electronically signed by: Carson Reed MD 08/10/2022 1:11 AM APPOINTMENT MANAGER Wo rkstation: [id number] TRIAGE OW2022-08-09 23:40:00 Test Item Value Reference Range Interpretation Comments D-DIMER (test code = 545 ng/mL D-DU <=599 GDDI) D-DIMER COMMENT (test *Level to rule out code = DDCOM) DVT or PE: <235 ng/mL D-DU* TROPONIN I OW2022-08-09 22:56:00 Test Item Value Reference Range Interpretation Comments TROPONIN I (test code = GTPI) <0.05 ng/mL <=0.05 Mety[employer]te 8 Panel *OW* [id number] 22:56:00 Test Item Value Reference Range Interpretation Comments GLUCOSE (test code = GGUL) 340 mg/dL 73-118 H BUN (test code = GBUN) 13 mg/dL 7-22 CREATININE (test code = GCRE) 0.8 mg/dL 0.6-1.2 CK TOTAL (test code = GCK) 129 U/L 30-190 SODIUM (test code = GNA+) 138 mmol/L 128-145 POTASSIUM (test code = GK+) 4.1 mmol/L 3.6-5.1 CHLORIDE (test code = GCL-) 103 mmol/L 98-108 TCO2 (test code = GTC02) 26 mmol/L 18-33 GENERAL CHEMISTRY 13 *OW* [id number] 22:56:00 Test Item Value Reference Range Interpretation Comments GLUCOSE (test code = GGUL) 340 mg/dL 73-118 H BUN (test code = GBUN) 13 mg/dL 7-22 CREATININE (test code = GCRE) 0.8 mg/dL 0.6-1.2 URIC ACID (test code = GUA) 3.0 mg/dL 2.2-6.6 CALCIUM (test code = GCL+) 9.0 mg/dL 8.0-10.3 ALBUMIN (test code = GALB) 4.0 g/dL 3.5-5.5 PROTEIN (test code = GTP) 8.0 g/dL 6.4-8.1 ALT (test code = GALT) 17 U/L 10-47 AST (test code = NITHYA) 16 U/L 11-38 ALK PHOS (test code = GALP) 103 U/L 42-141 BILI TOTAL (test code = GTBIL) 0.6 mg/dL 0.2-1.6 GGT (test code = GGGT) 28 U/L 5-65 AMYLASE (test code = GAMY) 30 U/L 14-97 XR CHEST 1 VIEW PORTABLE *OW*2022-08-09 22:47:27 [facility] : 1985 Sex: FAP Portable ChestLocation Code [id number]: Chest painFINDINGS: There are no infiltrates. There are no pleural effusions. There is no pneumothorax. Cardiac silhouette and mediastinum appear within normal limits. IMPRESSION: No active pulmonary findings.Electronically signed by: Christy Horn MD 08/09/2022 10:47 PM [facility] (INCLUDES AUTOMATED DIFFERENTIAL) *2022-08-09 22:34:00 Test Item Value Reference Range Interpretation Comments WBC (test code = WBC) 10.0 10\\S\\3/uL 4.5-11.0 RBC (test code = RBC) 4.56 10\\S\\6/uL 4.30-5.70 HGB (test code = HBG) 14.3 g/dL 12.0-15.5 HCT (test code = HCT) 43.8 % 35.0-44.0 MCV (test code = MCV) 96.1 fL 81.0-99.0 MCH (test code = MCH) 31.4 pg 27.0-31.0 H MCHC (test code = MCHC) 32.6 g/dL 32.0-36.0 RDW (test code = RDW) 13.3 % 11.5-14.5 PLT (test code = PLT) 262 10\\S\\3/uL 130-400 MPV (test code = OMPV) 7.8 fL 6.2-10.2 NEUTROP # (test code = NE#) 6.7 10\\S\\3/uL 1.6-8.0 LYMPH # (test code = LY#) 2.4 10\\S\\3/uL 1.1-3.5 MID # (test code = GMID#) 1.0 10\\S\\3/uL 0.0-1.1 GRAN % (test code = GRA%) 66.9 % 35.0-73.0 LYMPH % (test code = GLY%) 23.5 % 20.0-55.0 MID % (test code = GMID%) 9.6 % 0.0-10.0 SARS-CoV (RAPID ANTIGEN) WH2022-07-16 00:10:00 Test Item Value Reference Range Interpretation Comments SARS-CoV (ANTIGEN) NEGATIVE NEGATIVE (test code = COVAG) COVID AG (test This test has been code = COVAGC) marketed under the FDA Emergency Use Authorization (EUA) to meet challenges of the COVID-19 pandemic. The validation standards normally enforced by the FDA and the [employer] of the [place] (CAP) are more stringent than those required for this test. Therefore, the result should be interpreted with caution and close attention to other clinical and epidemiological data INFLUENZA A AND B OW2022-07-16 00:04:00 Test Item Value Reference Range Interpretation Comments INFLUENZ A (test code = INFA) NEGATIVE NEGATIVE INFLUENZ B (test code = INFB) NEGATIVE NEGATIVE CHLAMYDIA/N. GONORRHOEAE RNA, TMA, [id number] 22:00:00 Test Item Value Reference Range Interpretation Comments CHLAMYDIA NOT DETECTED NOT DETECTED TRACHOMATIS RNA, TMA, UROGENITAL (test code = 74665-7) NEISSERIA NOT DETECTED NOT DETECTED GONORRHOEAE RNA, TMA, UROGENITAL (test code = 96845-3) (Always Message) SEE NOTE The analyti fely (test code = performance 753555214) characteristics of thisassay, when used to test SurePat h(TM) specimens have beendetermined by [employer] . The modificatio ns havenot been cl eared or approved by the FDA. This assay hasbeen validat ed pursuant to the CLIA regulations and isused for clin ical purposes. For additional information, pl ease refer tohttps://educa tion. [employer] /faq/QZI464([employer] s link is being provided for information/edu catio nal purposes on ly.) RAC (test code = Performing RAC) Organization Information: ? ?Site ID: [email or web address] ? ?Name: [email or web address] [facility] ? ?Address: [address] [place] [id number] ? ?Director: GRANT COLEY MD [facility] PE PROTOCOL *OW*2021-12-25 18:05:59 [facility] : 1985 Sex: FEXAM: CT CHEST ANGIOGRAPHY WITH IV CONTRASTLOCATION: [id number]: 36 years-year old Female with Chest painTECHNIQUE: Axial tomograms through the chest were obtained after intravenous contrast utilizing pulmonary embolus protocol. Coronal and sagittal reformatted images are provided. At least one MIP sequence was provided. This exam was performed according to our departmental dose-optimization program, which includes automated exposure control, adjustment of the mA and/or kV according to patient size and/or use of iterative reconstruction technique.COMPARISON: None available time of interpretation.FINDINGS:Vascu lature: No filling defects are seen in the pulmonary arteries to the segmental level. The pulmonary trunk and main pulmonary arteries are normal in caliber.The thoracic aorta is normal in caliber without dissection.Lungs: The lungs are clear.Pleura: No effusions or pneumothorax.Mediastinal: There is no pericardial effusion. The trachea is unremarkable. The esophagus is grossly unremarkable.Lymph nodes: There is no mediastinal, hilar, or axillary adenopathy. A few tiny calcified mediastinal lymph nodes are seen, likely sequela of granulomatous disease.Bones: No acute osseous findings. Soft tissues: Unremarkable. Visualized abdomen: Unremarkable.IMPRESSION:No pulmonary embolism to the segmental level.Electronically signed by: Clifton Arroyo MD 12/25/2021 6:05 PM CDT -ZwO (RAPID ANTIGEN) WH2021-12-25 15:52:00 Test Item Value Reference Range Interpretation Comments SARS-CoV (ANTIGEN) NEGATIVE NEGATIVE (test code = COVAG) COVID AG (test This test has been code = COVAGC) marketed under the FDA Emergency Use Authorization (EUA) to meet challenges of the COVID-19 pandemic. The validation standards normally enforced by the FDA and the [employer] of the [place] [employer] (CAP) are more stringent than those required for this test. Therefore, the result should be interpreted with caution and close attention to other clinical and epidemiological data DIRECT STREP GROUP AOW2021-12-25 15:42:00 Test Item Value Reference Range Interpretation Comments Strep A Ag (test code = STREP) NEGATIVE NEGATIVE INFLUENZA A AND B OW2021-12-25 15:42:00 Test Item Value Reference Range Interpretation Comments INFLUENZ A (test code = INFA) NEGATIVE NEGATIVE INFLUENZ B (test code = INFB) NEGATIVE NEGATIVE URINE OW2021-12-25 15:30:00 Test Item Value Reference Range Interpretation Comments PREG UR (test code = PGU) Negative NEGATIVE URINALYSIS W/O MICROSCOPICOW2021-12-25 15:28:00 Test Item Value Reference Range Interpretation Comments COLOR (test code = Yellow YELLOW COLU) CLARITY (test code = Clear CLEAR CLA) GLUCOSE UR (test 2+ NEGATIVE A code = UA GLUCOSE) BILI UR (test code = Negative NEGATIVE BILE) KETONES UR (test Negative NEGATIVE code = ANNA) SP GRAVITY (test 1.020 1.005-1.030 code = SPGR) PH UR (test code = 6.5 4.5-8.0 PH) PROTEIN UR (test Negative NEGATIVE code = PU) NITRITE UR (test Negative NEGATIVE code = NITRITE) UROBIL UR (test code 0.2 E.U./dL = GUROQ) UROBIL UR (test code UROBILINOGEN = GUROQC) REFERENCE RANGE 0.2 - 1.0 EU/dL BLOOD UR (test code Negative NEGATIVE = UA BLOOD) LEUK ES UR (test Negative NEGATIVE code = LEUK) M[employer]te 8 Panel *OW* [id number] 15:28:00 Test Item Value Reference Range Interpretation Comments GLUCOSE (test code = GGUL) 324 mg/dL 73-118 H BUN (test code = GBUN) 10 mg/dL 7-22 CREATININE (test code = GCRE) 0.4 mg/dL 0.6-1.2 L CK TOTAL (test code = GCK) 61 U/L 30-190 SODIUM (test code = GNA+) 138 mmol/L 128-145 POTASSIUM (test code = GK+) 4.0 mmol/L 3.6-5.1 CHLORIDE (test code = GCL-) 102 mmol/L 98-108 TCO2 (test code = GTC02) 23 mmol/L 18-33 GENERAL CHEMISTRY 13 *OW* [id number] 15:17:00 Test Item Value Reference Range Interpretation Comments GLUCOSE (test code = GGUL) 296 mg/dL 73-118 H BUN (test code = GBUN) 10 mg/dL 7-22 CREATININE (test code = GCRE) 0.5 mg/dL 0.6-1.2 L URIC ACID (test code = GUA) 2.6 mg/dL 2.2-6.6 CALCIUM (test code = GCL+) 8.5 mg/dL 8.0-10.3 ALBUMIN (test code = GALB) 3.8 g/dL 3.5-5.5 PROTEIN (test code = GTP) 7.9 g/dL 6.4-8.1 ALT (test code = GALT) 13 U/L 10-47 AST (test code = NITHYA) 32 U/L 11-38 ALK PHOS (test code = GALP) 87 U/L 42-141 BILI TOTAL (test code = GTBIL) 0.4 mg/dL 0.2-1.6 GGT (test code = GGGT) 22 U/L 5-65 AMYLASE (test code = GAMY) 19 U/L 14-97 TROPONIN I OW2021-12-25 15:16:00 Test Item Value Reference Range Interpretation Comments TROPONIN I (test <0.05 ng/mL See_Comment [Automated message] code = GTPI) The system [employer] generated this result transmitted ref erence range: <=0.05. The reference range was not used to int erpret this result as normal/abnormal . D-DIMER TRIAGE OW2021-12-25 15:15:00 Test Item Value Reference Range Interpretation Comments D-DIMER (test code 929 ng/mL D-DU See_Comment H [Autom ated message] = GDDI) The system [employer] generated this result transmitted ref erence range: <=599. T he reference range was not used to int erpret this result as normal/abnormal . D-DIMER COMMENT *Level to rule (test code = out DVT or PE: DDCOM) <235 ng/mL D-DU* XR CHEST 1 VIEW PORTABLE *OW*2021-12-25 15:08:57 [facility]Z : 1985 Sex: FLOCATION: [address] 1 VIEWINDICATION: Chest PainCOMPARISON: None availableFINDINGS: The lungs are clear and wellinflated. No pleural effusion or pneumothorax. The cardiomediastinal silhouette is unremarkable. Thebony thorax is intact.IMPRESSION: No acute cardiopulmonary findings.Electronically signed by: Christopher TOUSSAINT 12/25/2021 3:08 PM CDT (INCLUDES AUTOMATED DIFFERENTIAL) *2021-12-25 14:50:00 Test Item Value Reference Range Interpretation Comments WBC (test code = WBC) 9.5 10\\S\\3/uL 4.5-11.0 RBC (test code = RBC) 4.55 10\\S\\6/uL 4.30-5.70 HGB (test code = HBG) 14.3 g/dL 12.0-15.5 HCT (test code = HCT) 44.5 % 35.0-44.0 H MCV (test code = MCV) 97.8 fL 81.0-99.0 MCH (test code = MCH) 31.4 pg 27.0-31.0 H MCHC (test code = MCHC) 32.1 g/dL 32.0-36.0 RDW (test code = RDW) 11.3 % 11.5-14.5 L PLT (test code = PLT) 260 10\\S\\3/uL 130-400 MPV (test code = OMPV) 8.8 fL 6.2-10.2 NEUTROP # (test code = NE#) 6.3 10\\S\\3/uL 1.6-8.0 LYMPH # (test code = LY#) 2.5 10\\S\\3/uL 1.1-3.5 MID # (test code = GMID#) 0.7 10\\S\\3/uL 0.0-1.1 GRAN % (test code = GRA%) 65.8 % 35.0-73.0 LYMPH % (test code = GLY%) 26.6 % 20.0-55.0 MID % (test code = GMID%) 7.6 % 0.0-10.0 URINALYSIS W/O MICROSCOPICOW2021-08-31 09:52:00 Test Item Value Reference Range Interpretation Comments COLOR (test code = Yellow YELLOW COLU) CLARITY (test code = SLT HAZY CLEAR A CLA) GLUCOSE UR (test 1+ NEGATIVE A code = UA GLUCOSE) BILI UR (test code = Negative NEGATIVE BILE) KETONES UR (test Negative NEGATIVE code = ANNA) SP GRAVITY (test 1.025 1.005-1.030 code = SPGR) PH UR (test code = 7.0 4.5-8.0 PH) PROTEIN UR (test 1+ NEGATIVE A code = PU) NITRITE UR (test Negative NEGATIVE code = NITRITE) UROBIL UR (test code 0.2 E.U./dL = GUROQ) UROBIL UR (test code UROBILINOGEN = GUROQC) REFERENCE RANGE 0.2 - 1.0 EU/dL BLOOD UR (test code Trace-lysed NEGATIVE = UA BLOOD) LEUK ES UR (test 1+ NEGATIVE A code = LEUK) Basic Metabolic Panel (NA, K, CL, CO2, GLUCOSE, BUN, CREATININE, CA)2020-11-24 23:08:59 Test Item Value Reference Range Interpretation Comments NA (test code = 140 mmol/L 135-145 5510275257) K (test code = 3.4 mmol/L 3.5-5.0 L 5599584172) CL (test code = 103 mmol/L 98-108 8177766690) CO2 TOTAL (test code = 24 mmol/L 23-31 4087948256) AGAP (test code = 2-16 9717184765) BUN (test code = 10 mg/dL 7-23 6933466828) GLUCOSE (test code = 254 mg/dL 70-110 H 6603247092) CREATININE (test code = 0.40 mg/dL 0.50-1.04 L 6333221095) CALCIUM (test code = 9.3 mg/dL 8.6-10.6 5711639925) eGFR (test code = mL/min/1.73m2 3630840756) TATIANA (test code = TATIANA) Association of Glomerular Filtration Rate (GFR) and Staging of Kidney Disease* + --+ --+ ------+| GFR (mL/min/1.73 m2) ?| With Kidney Damage ?| ?Without Kidney Damage+ --------+ --------+ +| ?>90 ?| ?Stage one ?| ? Normal ?+ ---+ ---+ -------+| ?60-89 ?| ?Stage two ?| ? Decreased GFR ? + --+ --+ ------+| ?30-59 ?| ?Stage three ?| ? Stage three ? + --+ --+ ------+| ?15-29 ?| ?Stage four ? | ? Stage four ?+ ---+ ---+ -------+| ?<15 (or dialysis) ? ?| ?Stage five ? | ? Stage five ?+ ---+ ---+ -------+ *Each stage assumes the associated GFR level has been in effect for at least three months. ?Stages 1 to 5, with or without kidney disease, indicate chronic kidney disease. Notes: Determination of stages one and two (with eGFR >59mL/min/1.73 m2) requires estimation of kidney damage for at least three months as defined by structural or functional abnormalities of the kidney, manifested by either:Pathological abnormalities or Markers of kidney damage (including abnormalities in the composition of the blood or urine or abnormalities in imaging tests). Lab Interpretation Abnormal (test code = 08134-7) [facility] with [id number] 22:59:55 Test Item Value Reference Range Interpretation Comments WBC (test code = See_Comment [Automated message] 1690-2) The system [employer] generated this result transmitted ref erence range: 4.30 - 1 1.10 10*3/?L. The re ference range was not u sed to interpret this result as normal/abnor mal. RBC (test code = See_Comment [Automated message] 619-8) The system [employer] generated this result transmitted ref erence range: 3.93 - 5 .25 10*6/?L. The re ference range was not u sed to interpret this result as normal/abnor mal. HGB (test code = 14.3 g/dL 11.6-15.0 718-7) HCT (test code = 41.9 % 35.7-45.2 4544-3) MCV (test code = 90.5 fL 80.6-95.5 787-2) MCH (test code = 30.9 pg 25.9-32.8 785-6) MCHC (test code = 34.1 g/dL 31.6-35.1 786-4) RDW-SD (test code 39.8 fL 39.0-49.9 = 33140-7) RDW-CV (test code 12.1 % 12.0-15.5 = 788-0) PLT (test code = See_Comment [Automated message] 777-3) The system whic h generated this result transmitted ref erence range: 166 - 35 8 10*3/?L. The re ference range was not u sed to interpret this result as normal/abnor mal. MPV (test code = 9.8 fL 9.5-12.9 19058-1) NRBC/100 WBC (test See_Comment [Automat ed message] code = 7517454394) The syste m which generated this result transmitted ref erence range: 0.0 - 10 .0 /100 WBCs. The refer ence range was not u sed to interpret this result as normal/abnor mal. NRBC x10^3 (test <0.01 See_Comment [Automated message] code = 6654826113) The syste m which generated this result transmitted ref erence range: 10*3/?L. The reference range was not used to interpr et this result as normal/abnormal . GRAN MAT (NEUT) % 57.3 % (test code = 770-8) IMM GRAN % (test 0.40 % code = 0409773657) LYMPH % (test code 32.9 % = 736-9) MONO % (test code 7.4 % = 5905-5) EOS % (test code = 1.3 % 713-8) BASO % (test code 0.7 % = 706-2) GRAN MAT 5.29 10*3/uL 1.88-7.09 x10^3(ANC) (test code = 4786716451) IMM GRAN x10^3 0.04 10*3/uL 0.00-0.06 (test code = 3837134158) LYMPH x10^3 (test 3.04 10*3/uL 1.32-3.29 code = 731-0) MONO x10^3 (test 0.68 10*3/uL 0.33-0.92 code = 742-7) EOS x10^3 (test 0.12 10*3/uL 0.03-0.39 code = 711-2) BASO x10^3 (test 0.06 10*3/uL 0.01-0.07 code = 704-7) [facility] [id number] 22:53:00 Test Item Value Reference Range Interpretation Comments POCT PREG (test code = 1605) negative On board controls acceptable with present C Line (test code = 3574) POCT PREG LOT # (test code = 3575) [id number] POCT PREG TEST DATE (test 05/22/2022 code = 3576) Lab Interpretation (test code = Normal 98789-1) [facility] Test Item Value Reference Range Interpretation Comments APPEARANCE (test code = Clear Clear 5802929312) COLOR (test code = Yellow Yellow 2606910529) PH (test code = 4.8-8.0 9217453678) SP GRAVITY (test code = 1.003-1.030 3453533823) GLU U QUAL (test code = 500 mg/dL Normal A 7452570623) BLOOD (test code = Negative Negative 0028008498) KETONES (test code = Negative Negative 1832744120) PROTEIN (test code = Negative Negative 2887-8) UROBILIN (test code = Normal Normal 5482392526) BILIRUBIN (test code = Negative Negative 1408269533) NITRITE (test code = Negative Negative 1845911187) LEUK BARB (test code = Negative Negative 2313281493) RBC/HPF (test code = See_Comment [Autom ated message] 7617936599) The system [employer] generated this result transmit regi reference range : 0 - 3 HPF. The refe rence range was not u sed to interpret th is result as normal/abnormal . WBC/HPF (test code = See_Comment H [Autom ated message] 3682684183) The system [employer] generated this result transmit regi reference range : 0 - 5 HPF. The refe rence range was not u sed to interpret th is result as normal/abnormal . BACTERIA (test code = Negative Negative 1287031959) MUCOUS (test code = Slight Negative LPF A 9500647020) SQ EPITH (test code = <1 HPF 6668663525) Lab Interpretation (test Abnormal code = 44794-0) [facility] [id number] 21:42:00 Test Item Value Reference Range Interpretation Comments POCT PREG (test code = 1605) negative On board controls acceptable with present C Line (test code = 3574) POCT PREG LOT # (test code = 3575) [id number] POCT PREG TEST DATE (test code = 3576) Lab Interpretation (test code = Normal 83234-8) [facility] (MOLECULAR TESTING NUCLEIC ACID AMPLIFICATION)2020-10-28 11:48:59 Test Item Value Reference Range Interpretation Comments SARS-CoV-2 NAAT (test Not Detected Not Detected code = 25812-7) TATIANA (test code = TATIANA) [employer] Aptima SARS-CoV-2 Assay is a nucleic acid amplification test intended for the qualitative detection of RNA from SARS-CoV-2 from nasopharyngeal (PATIENT DAY COORDINATOR) specimens. ?It is used under Emergency Use Authorization (EUA) by FDA. A positive result is indicative of the presence of SARS-CoV-2 RNA. ?Clinical correlation with patient history and other diagnostic information is necessary to determine patient infection status. A negative (Not Detected) result does not preclude SARS-CoV-2 infection. ?Clinical correlation with patient history and other diagnostic information should be used in patient management decisions. Invalid: Unable to generate a valid test result on this specimen. ?Please submit a new specimen for repeat testing if clinically indicated. Lab Interpretation Normal (test code = 44599-2) [facility] [id number] 23:02:[address] of the abdomen. Status post cholecystectomy. RL: [id number] End of report ORDERING PHYSICIAN:ALEX GLOVER CLINICAL HISTORY: Nausea/vomiting Abdominal pain, acute, nonlocalized TECHNIQUE: Contiguous axial images were obtained through the abdomen andpelvis without intravenous contrast. ?Coronal and sagittal reformats werealso obtained. ALARA (As Low As Reasonably Achievable) ?principles was usedduring this examination. COMPARISON: ?None FINDINGS: Evaluation of the solid organs and vascular structures is limited withoutintravenous contrast. Calcified granuloma in the left lower lobe. The liver, spleen, pancreas, adrenal glands and kidneys are unremarkable.The gallbladder is surgically absent. The visualized small bowel and colon are without bowel wall thickening ordilatation. Unremarkable appendix. No free fluid or adenopathy is demonstrated. No evidence of free air. The visualized aortoiliac vessels are normal caliber. No acute osseous abnormality. [facility], Radiant Results Inft User - 10/27/2020 6:03 PM CDTORDERING PHYSICIAN:ALEX MONGEINICAL HISTORY: Nausea/vomiting Abdominal pain, acute, nonlocalized TECHNIQUE: Contiguous axial images were obtained through the abdomen andpelvis without intravenous contrast. Coronal and sagittal reformats werealso obtained. ALARA (As Low As Reasonably Achievable) principles wasusedduring this examination.COMPARISON: NoneFINDINGS:Evaluation of the solid organs and vascular structures is limited withoutintravenous contrast.Calcified granuloma in the left lower lobe.The liver, spleen, pancreas, adrenal glands and kidneys are unremarkable.The gallbladder is surgically absent.The visualized small bowel and colon are without bowel wall thickening ordilatation. Unremarkable appendix.No free fluid or adenopathy is demonstrated. No evidence of free air.The visualized aortoiliac vessels are normal caliber.No acute osseous abnormality.IMPRESSIONUnremarkable unenhanced CT of the abdomen.Status post cholecystectomy.RL: 5045End of report [facility] 22:10:59 Test Item Value Reference Range Interpretation Comments APPEARANCE (test code = Clear Clear 7509908840) COLOR (test code = Straw Yellow A 9431125331) PH (test code = 4.8-8.0 8069089281) SP GRAVITY (test code = 1.003-1.030 H 1667693244) GLU U QUAL (test code = 500 mg/dL Normal A 1739432056) BLOOD (test code = Negative Negative 9547112873) KETONES (test code = 5 mg/dL Negative A 2210326483) PROTEIN (test code = Negative Negative 2887-8) UROBILIN (test code = Normal Normal 7502235743) BILIRUBIN (test code = Negative Negative 7332192779) NITRITE (test code = Negative Negative 4877942362) LEUK BARB (test code = Negative Negative 9358955279) RBC/HPF (test code = See_Comment [Autom ated message] 8917637818) The system [employer] generated this result transmit regi reference range : 0 - 3 HPF. The refe rence range was not u sed to interpret th is result as normal/abnormal . WBC/HPF (test code = See_Comment [Autom ated message] 2951146157) The system [employer] generated this result transmit regi reference range : 0 - 5 HPF. The refe rence range was not u sed to interpret th is result as normal/abnormal . BACTERIA (test code = Negative Negative 0275137611) SQ EPITH (test code = <1 HPF 0141133905) Lab Interpretation (test Abnormal code = 27959-9) [facility]. METABOLIC PANEL (07467)2020-10-27 21:47:48 Test Item Value Reference Range Interpretation Comments NA (test code = 136 mmol/L 135-145 5125078058) K (test code = 4.3 mmol/L 3.5-5.0 5510376918) CL (test code = 98 mmol/L 98-108 2472931997) CO2 TOTAL (test code = 23 mmol/L 23-31 5497242251) AGAP (test code = 2-16 0842239013) BUN (test code = 9 mg/dL 7-23 0235628477) GLUCOSE (test code = 405 mg/dL 70-110 H 4400259736) CREATININE (test code = 0.40 mg/dL 0.50-1.04 L 6276309468) TOTAL BILI (test code = 0.5 mg/dL 0.1-1.0 5017220808) CALCIUM (test code = 9.5 mg/dL 8.6-10.6 9251067026) T PROTEIN (test code = 7.5 g/dL 6.3-8.2 2108704024) ALBUMIN (test code = 4.5 g/dL 3.5-5.0 7971401660) ALK PHOS (test code = 151 U/L 34-122 H 2154888811) ALTv (test code = 20 U/L 5-35 1742-6) AST(SGOT) (test code = 18 U/L 13-40 7132051950) eGFR (test code = mL/min/1.73m2 1349186306) TATIANA (test code = TATIANA) Association of Glomerular Filtration Rate (GFR) and Staging of Kidney Disease* + --+ --+ ------+| GFR (mL/min/1.73 m2) ?| With Kidney Damage ?| ?Without Kidney Damage+ --------+ --------+ +| ?>90 ?| ?Stage one ?| ? Normal ?+ ---+ ---+ -------+| ?60-89 ?| ?Stage two ?| ? Decreased GFR ? + --+ --+ ------+| ?30-59 ?| ?Stage three ?| ? Stage three ? + --+ --+ ------+| ?15-29 ?| ?Stage four ? | ? Stage four ?+ ---+ ---+ -------+| ?<15 (or dialysis) ? ?| ?Stage five ? | ? Stage five ?+ ---+ ---+ -------+ *Each stage assumes the associated GFR level has been in effect for at least three months. ?Stages 1 to 5, with or without kidney disease, indicate chronic kidney disease. Notes: Determination of stages one and two (with eGFR >59mL/min/1.73 m2) requires estimation of kidney damage for at least three months as defined by structural or functional abnormalities of the kidney, manifested by either:Pathological abnormalities or Markers of kidney damage (including abnormalities in the composition of the blood or urine or abnormalities in imaging tests). Lab Interpretation Abnormal (test code = 27810-7) [facility] WITH [id number] 21:34:25 Test Item Value Reference Range Interpretation Comments WBC (test code = See_Comment [Automated 9942-2) message] The sy stem which generated this result transmitted reference range : 4.30 - 11.10 10*3/?L. The reference range was not used to interpret this result as normal/abnormal . RBC (test code = See_Comment [Automated 337-8) message] The sy stem which generated this result transmitted reference range : 3.93 - 5.25 10*6/?L. The reference range was not used to interpret this result as normal/abnormal . HGB (test code = 14.8 g/dL 11.6-15.0 718-7) HCT (test code = 43.3 % 35.7-45.2 4544-3) MCV (test code = 90.0 fL 80.6-95.5 787-2) MCH (test code = 30.8 pg 25.9-32.8 785-6) MCHC (test code = 34.2 g/dL 31.6-35.1 786-4) RDW-SD (test code = 38.4 fL 39.0-49.9 L 90818-5) RDW-CV (test code = 11.7 % 12.0-15.5 L 788-0) PLT (test code = See_Comment [Automated 777-3) message] The sy stem which generated this result transmitted reference range : 166 - 358 10*3/ ?L. The reference r kenneth was not used to interpret this result as normal/abnormal . MPV (test code = 11.2 fL 9.5-12.9 24340-0) NRBC/100 WBC (test See_Comment [Automat ed code = 3664122834) message] The system which generated this result transmitted reference range : 0.0 - 10.0 /100 WBCs. The refer ence range was not u sed to interpret th is result as normal/abnormal . NRBC x10^3 (test code <0.01 See_Comment [Auto mated = 4865090555) message] The s ystem which generated this result transmitted reference range : 10*3/?L. The reference range was not used to interpret this result as normal/abnormal . GRAN MAT (NEUT) % 59.1 % (test code = 770-8) IMM GRAN % (test code 0.40 % = 9962547280) LYMPH % (test code = 29.9 % 736-9) MONO % (test code = 7.7 % 5905-5) EOS % (test code = 2.0 % 713-8) BASO % (test code = 0.9 % 706-2) GRAN MAT x10^3(ANC) 5.41 10*3/uL 1.88-7.09 (test code = 7436531518) IMM GRAN x10^3 (test 0.04 10*3/uL 0.00-0.06 code = 3512167291) LYMPH x10^3 (test code 2.74 10*3/uL 1.32-3.29 = 731-0) MONO x10^3 (test code 0.70 10*3/uL 0.33-0.92 = 742-7) EOS x10^3 (test code = 0.18 10*3/uL 0.03-0.39 711-2) BASO x10^3 (test code 0.08 10*3/uL 0.01-0.07 H = 704-7) Lab Interpretation Abnormal (test code = 94475-3) [facility][O] Urine Test (in office)2020-08-31 00:00:00 Test Item Value Reference Range Interpretation Comments Test, Urine; Normal (test negative N code = 2106-3) Control Line Present? (test code = Yes N Control Line Present?) [id number] 23:07:00 Test Item Value Reference Range Interpretation Comments POCT PREG (test code = 1605) negative On board controls acceptable with present C Line (test code = 3574) POCT PREG LOT # (test code = 3575) [id number] POCT PREG TEST DATE (test 03/22/2022 code = 3576) Lab Interpretation (test code = Normal 47640-7) [facility] [id number] 13:35:00 Test Item Value Reference Range Interpretation Comments Culture Observations NO BETA HEMOLYTIC (test code = COB1) STREPTOCOCCUS ISOLATED Direct Exam (test code NEGATIVE FOR STREP A = DE1) ANTIGEN DIRECT INFLUENZA A AND B [id number] 13:26:00 Test Item Value Reference Range Interpretation Comments Direct Exam (test PRESUMPTIVE NEGATIVE FOR code = DE1) THE PRESENCE OF INFLUENZA ANTIGEN XR CHEST 1 VIEW [id number] 12:47:58PA and lateral chest, 2 viewsLocation code: [id number] HISTORY: CoughCOMPARISON: NoneCOMMENTS: The lungs are clear and well inflated. The costophrenic angles aresharp. The cardiomediastinal silhouette is unremarkable. The bones are intact.IMPRESSION: No acute abnormality[QLH] URINALYSIS, COMPLETE W/REFLEX TO [id number] 17:44:01 Test Item Value Reference Range Interpretation Comments UA Turbidity (test code = 68943-5) Clear Clear UA Spec Grav; Above High Threshold 1.042 <=1.030 (test code = 5810-7) UA pH (test code = 5803-2) 6.0 5.0-8.0 UA Protein; Abnormal (test code = 30 mg/dl Negative A 55283-3) UA Glucose; Abnormal (test code = 500 mg/dl Negative A 26490-3) UA Ketones; Abnormal (test code = 20 mg/dl Negative A 79988-3) UA Bili (test code = 5770-3) Negative Negative UA Blood (test code = 5794-3) Negative Negative UA Nitrite (test code = 5802-4) Negative Negative UA Leuk Est (test code = 5799-2) Negative Negative UA WBC (test code = 02037-9) <1 0-5 UA Mucus (test code = 8247-9) Few None Seen UA Sq Epi (test code = 18877-2) Occasional Few UA Color (test code = 5778-6) Yellow UROBILINOGEN (test code = 96450-7) <=1.0 0.1-1.0 [facility]] BV/ VAGINITIS PANEL DNA PROBE [id number] 17:44:01 Test Item Value Reference Range Interpretation Comments Trichomonas vaginalis DNA (test code Negative Negative = 33129-6) Gardnerella vaginalis DNA (test code Negative Negative = 6410-5) Kassidy sp. DNA (test code = Negative Negative 10787-5) [facility][H] Pap Liquid-based w/ Reflex [id number] 17:44:01 Test Item Value Reference Range Interpretation Comments Pap Diagnosis Comment NEGATIVE FOR (test code = INTRAEPITHELIAL LESION 43242-0) OR MALIGNANCY. Specimen Adequacy Comment Satisfacto ry for (test code = evaluation. Specimen Adequacy) Endocervi fely and/or squamous metaplasticcell s (endocervical component) are present. Pap Performed By Comment Nicolas smith (test code = Pap Cytotechnol ogist Performed By) (ASCP) Pap Comment (test Comment The Pap sm ear is a code = Pap screening test Comment) designed to aid in thedetection of premalignant an d malignant condi tions of theuterine c ervix. It is not a nito gnostic procedure andsh ould not be used as the sole means of detecting cervicalcancer. Both false-positive and false-negative reports dooccur. Edward Methodology Comment This liquid based (test code = Edward ThinPrep(R ) pap test Methodology) was screened wi ththe use of an image guided system. Source Pap (test CERVIX code = Source Pap) Collection BRUSH-SPATULA Technique (test code = Collection Technique) Date of LMP (test code = Date of LMP) Previous Treatment NONE (test code = Previous Treatment) [facility] OW2018-07-08 16:54:00 Test Item Value Reference Range Interpretation Comments TROPONIN I (test code = A84) 0.000 ng/mL 0.000-0.045 CBC (INCLUDES AUTOMATED DIFFERENTIAL) *2018-07-08 16:36:00 Test Item Value Reference Range Interpretation Comments WBC (test code = WBC) 11.0 10\\S\\3/uL 4.5-11.0 RBC (test code = RBC) 4.33 10\\S\\6/uL 4.30-5.70 HGB (test code = HBG) 14.0 g/dL 12.0-15.5 HCT (test code = HCT) 40.3 % 35.0-44.0 MCV (test code = MCV) 93.1 fL 81.0-99.0 MCH (test code = MCH) 32.3 pg 27.0-31.0 H MCHC (test code = MCHC) 34.7 g/dL 32.0-36.0 RDW (test code = RDW) 13.2 % 11.5-14.5 PLT (test code = PLT) 339 10\\S\\3/uL 130-400 MPV (test code = OMPV) 8.5 fL 6.2-10.2 NEUTROP # (test code = NE#) 7.5 10\\S\\3/uL 1.6-8.0 LYMPH # (test code = LY#) 2.6 10\\S\\3/uL 1.1-3.5 MID # (test code = GMID#) 0.9 10\\S\\3/uL 0.0-1.1 GRA % (test code = GRA%) 68.4 % 35.0-73.0 LYMPH % (test code = GLY%) 23.4 % 20.0-55.0 MID % (test code = GMID%) 8.2 % 0.0-10.0 CHEM8+ i-STAT OW2018-07-08 16:35:00 Test Item Value Reference Range Interpretation Comments SODIUM (test code = GUSTAVO) 139 mmol/L 138-146 POTASSIUM (test code = KI) 4.0 mmol/L 3.5-4.9 CHLORIDE (test code = CLI) 99 mmol/L 98-109 CA IONIZED (test code = ICAI) 1.15 mmol/L 1.12-1.32 GLUCOSE (test code = GLUI) 272 mg/dL 75-100 H TCO2 (test code = TCO2) 25 mmol/L 24-29 BUN (test code = BUN1) 13 mg/dL 8-26 CREATININE (test code = CREAI) 0.4 mg/dL 0.6-1.3 L ANION GAP (test code = GANG) 20.0 mmol/L HGB (test code = MHB) 14.6 g/dL 12.0-17.0 HCT (test code = MHCT) 43.0 % 38.0-51.0 URINE [id number] 00:47:00 Test Item Value Reference Range Interpretation Comments U Preg (test code = U Negative (04/19/17 7:47 Preg) PM) [facility] [id number] 00:47:00 Test Item Value Reference Range Interpretation Comments U Preg (test code = U Negative (04/19/17 7:47 Preg) PM) [facility] [id number] 00:47:00 Test Item Value Reference Range Interpretation Comments U Preg (test code = U Negative (04/19/17 7:47 Preg) PM) [facility] [id number] 00:47:00 Test Item Value Reference Range Interpretation Comments U Preg (test code = U Negative (04/19/17 7:47 Preg) PM) [facility] [id number] 00:47:00 Test Item Value Reference Range Interpretation Comments U Preg (test code = U Negative (04/19/17 7:47 Preg) PM) [facility] [id number] 00:47:00 Test Item Value Reference Range Interpretation Comments U Preg (test code = U Negative (04/19/17 7:47 Preg) PM) [facility] [id number] 00:47:00 Test Item Value Reference Range Interpretation Comments U Preg (test code = U Negative (04/19/17 7:47 Preg) PM) [facility] [id number] 01:49:00 Test Item Value Reference Range Interpretation Comments U Preg (test code = U Negative (04/11/17 8:49 Preg) PM) [id number] 01:49:00 Test Item Value Reference Range Interpretation Comments U Preg (test code = U Negative (04/11/17 8:49 Preg) PM) [id number] 01:49:00 Test Item Value Reference Range Interpretation Comments U Preg (test code = U Negative (04/11/17 8:49 Preg) PM) [id number] 01:49:00 Test Item Value Reference Range Interpretation Comments U Preg (test code = U Negative (04/11/17 8:49 Preg) PM) [facility]2017-10-21 01:49:00 Test Item Value Reference Range Interpretation Comments U Preg (test code = U Negative (04/11/17 8:49 Preg) PM) [facility] [facility]00 Test Item Value Reference Range Interpretation Comments U Preg (test code = U Negative (04/11/17 8:49 Preg) PM) [facility]2017-10-21 01:49:00 Test Item Value Reference Range Interpretation Comments U Preg (test code = U Negative (04/11/17 8:49 Preg) PM) [facility]2016-10-18 15:48:00 Test Item Value Reference Range Interpretation Comments eGFR (test code = eGFR) 108 [facility] [id number] 15:48:00 Test Item Value Reference Range Interpretation Comments Bili Total (test code = Bili Total) 0.3 0.2-1.3 [facility]annH[facility] [id number] 15:48:00 Test Item Value Reference Range Interpretation Comments Alk Phos (test code = Alk Phos) 103 39-136 [facility] [id number] 15:48:00 Test Item Value Reference Range Interpretation Comments CO2 (test code = CO2) 22 24-32 [facility]annH[facility] [id number] 15:48:00 Test Item Value Reference Range Interpretation Comments Calcium Lvl (test code = Calcium Lvl) 8.9 8.5-10.5 [facility]2016-10-18 15:48:00 Test Item Value Reference Range Interpretation Comments AST (test code = AST) 51 See_Comment [Auto mated message] The system which ge nerated this result transmit regi reference range : <=37. The reference range was not used to interpr et this result as nela l/abnormal. [facility]2016-10-18 15:48:00 Test Item Value Reference Range Interpretation Comments ALT (test code = ALT) 84 See_Comment [Auto mated message] The system which ge nerated this result transmit regi reference range : <=65. The reference range was not used to interpr et this result as nela l/abnormal. [facility]2016-10-18 15:48:00 Test Item Value Reference Range Interpretation Comments Total Protein (test code = Total 9.4 6.4-8.4 Protein) [place] [id number] 15:48:00 Test Item Value Reference Range Interpretation Comments Albumin Lvl (test code = Albumin Lvl) 4.0 3.5-5.0 [facility]2016-10-18 15:48:00 Test Item Value Reference Range Interpretation Comments Potassium Lvl (test code = Potassium 3.1 3.5-5.1 Lvl) [facility]2016-10-18 15:48:00 Test Item Value Reference Range Interpretation Comments Chloride Lvl (test code = Chloride Lvl) 104 95-109 [facility]2016-10-18 15:48:00 Test Item Value Reference Range Interpretation Comments Glucose Lvl (test code = Glucose Lvl) 120 70-99 [facility]2016-10-18 15:48:00 Test Item Value Reference Range Interpretation Comments Creatinine Lvl (test code = Creatinine 0.75 0.50-1.40 Lvl) [facility]2016-10-18 15:48:00 Test Item Value Reference Range Interpretation Comments Sodium Lvl (test code = Sodium Lvl) 137 135-145 [facility]2016-10-18 15:48:00 Test Item Value Reference Range Interpretation Comments BUN (test code = BUN) 9 7-22 [place] 672356-10-18 15:48:00 Test Item Value Reference Range Interpretation Comments Globulin (test code = Globulin) 5.4 2.7-4.2 [facility]2016-10-18 15:48:00 Test Item Value Reference Range Interpretation Comments A/G Ratio (test code = A/G Ratio) 0.7 0.7-1.6 [facility]2016-10-18 15:48:00 Test Item Value Reference Range Interpretation Comments B/C Ratio (test code = B/C Ratio) 12 6-25 [facility]2016-10-18 15:48:00 Test Item Value Reference Range Interpretation Comments AGAP (test code = AGAP) 14.1 10.0-20.0 [facility]2016-10-18 15:48:00 Test Item Value Reference Range Interpretation Comments Lipase Lvl (test code = Lipase Lvl) 833 10-997 [id number] 15:48:00 Test Item Value Reference Range Interpretation Comments MPV (test code = MPV) 8.5 7.4-10.4 [facility]stFvznctaJTZMZCQVNG1112-66-90 15:48:00 Test Item Value Reference Range Interpretation Comments Platelet (test code = Platelet) 339 133-450 [id number] 15:48:00 Test Item Value Reference Range Interpretation Comments RDW (test code = RDW) 12.3 11.5-14.5 [id number] 15:48:00 Test Item Value Reference Range Interpretation Comments MCH (test code = MCH) 29.1 pg 27.0-31.0 [facility]stMynvyjyWBKEUIHQYI6539-35-52 15:48:00 Test Item Value Reference Range Interpretation Comments MCV (test code = MCV) 87.2 80.0-98.0 [facility]stVrnfbnvHAVVXSLZUG4522-04-75 15:48:00 Test Item Value Reference Range Interpretation Comments WBC (test code = WBC) 10.4 3.7-10.4 [facility]stL[id number] 15:48:00 Test Item Value Reference Range Interpretation Comments Hct (test code = Hct) 47.3 36.0-48.0 [facility]stYkllimdVQOXQUVTGY0735-80-00 15:48:00 Test Item Value Reference Range Interpretation Comments Hgb (test code = Hgb) 15.8 12.0-16.0 [facility]stJejwpskFJVWNUWGNZ0277-39-64 15:48:00 Test Item Value Reference Range Interpretation Comments MCHC (test code = MCHC) 33.4 32.0-36.0 [facility]stAiceweoNDLDVOERLF3157-54-36 15:48:00 Test Item Value Reference Range Interpretation Comments RBC (test code = RBC) 5.42 4.20-5.40 [facility]stLsfqgkkOTIBAMSCFE3981-59-30 15:48:00 Test Item Value Reference Range Interpretation Comments Lymphocytes (test code = Lymphocytes) 12.6 20.0-40.0 [facility]stMuypoirVGLTBHDBST4360-98-78 15:48:00 Test Item Value Reference Range Interpretation Comments Segs (test code = Segs) 73.5 45.0-75.0 [facility]stXxhvjioWWJIGCPQLU2648-50-80 15:48:00 Test Item Value Reference Range Interpretation Comments Monocytes (test code = Monocytes) 12.8 2.0-12.0 [facility]stBbdusvtHUTVCIATNG4520-03-62 15:48:00 Test Item Value Reference Range Interpretation Comments Eosinophils (test code = 0.9 See_Comment [A utomated message] The Eosinophils) system which ge nerated this result tra nsmitted reference range : <=4.0. The reference r kenneth was not used to int erpret this result as normal/abnormal . [facility]stPpmidxqFCPQQUIPXN7646-10-63 15:48:00 Test Item Value Reference Range Interpretation Comments Basophils (test code = 0.2 See_Comment [Aut omated message] The Basophils) system which ge nerated this result tra nsmitted reference range : <=1.0. The reference r kenneth was not used to int erpret this result as normal/abnormal . [facility]stUztujcnVZLHCKCDQS7843-39-47 15:48:00 Test Item Value Reference Range Interpretation Comments Lymphocytes # (test code = Lymphocytes 1.3 1.0-5.5 #) [facility]stZuzlzqsTQFKIDZSIW8943-59-33 15:48:00 Test Item Value Reference Range Interpretation Comments Segs-Bands # (test code = Segs-Bands #) 7.7 1.5-8.1 [facility]stZelusiqGZAMGDVLYT7309-83-08 15:48:00 Test Item Value Reference Range Interpretation Comments Monocytes # (test code 1.3 See_Comment [Aut omated message] The = Monocytes #) system which generated this result tra nsmitted reference range : <=0.8. The reference r kenneth was not used to int erpret this result as normal/abnormal . [id number] 15:48:00 Test Item Value Reference Range Interpretation Comments Eosinophils # (test code 0.1 See_Comment [A utomated message] The = Eosinophils #) system whic h generated this result tra nsmitted reference range : <=0.5. The reference r kenneth was not used to int erpret this result as normal/abnormal . [facility]stJoagrohPYVRQZWBEJ9810-03-67 15:48:00 Test Item Value Reference Range Interpretation Comments Basophils # (test code 0.0 See_Comment [Aut omated message] The = Basophils #) system which generated this result tra nsmitted reference range : <=0.2. The reference r kenneth was not used to int erpret this result as normal/abnormal . [facility] AND [id number] 15:48:00 Test Item Value Reference Range Interpretation Comments UA Sq Epi (test code = UA Sq Epi) None Seen [facility] AND [id number] 15:48:00 Test Item Value Reference Range Interpretation Comments UA Leuk Est (test Negative (04/09/16 10:48 code = UA Leuk Est) AM) [facility] AND [id number] 15:48:00 Test Item Value Reference Range Interpretation Comments UA WBC (test code = 19 See_Comment [Automa regi message] The UA WBC) system which ge nerated this result transmit regi reference range : <=5. The reference range was not used to interpr et this result as nela l/abnormal. [facility] AND [id number] 15:48:00 Test Item Value Reference Range Interpretation Comments UA Nitrite (test code Negative (04/09/16 = UA Nitrite) 10:48 AM) [facility] AND [id number] 15:48:00 Test Item Value Reference Range Interpretation Comments UA Blood (test code = Small *ABN*(04/09/16 UA Blood) 10:48 AM) [facility] AND [id number] 15:48:00 Test Item Value Reference Range Interpretation Comments UA Protein (test code = UA Protein) 100 mg/dL [facility] AND [id number] 15:48:00 Test Item Value Reference Range Interpretation Comments UA pH (test code = UA pH) 6.0 5.0-8.0 [facility] AND [id number] 15:48:00 Test Item Value Reference Range Interpretation Comments UA Spec Grav (test code = UA Spec Grav) 1.024 [facility] AND [id number] 15:48:00 Test Item Value Reference Range Interpretation Comments UA CaOx Leslie (test code = UA CaOx Many /HPF Leslie) [facility] AND [id number] 15:48:00 Test Item Value Reference Range Interpretation Comments UA Mucus (test code = UA Mucus) Few /LPF [facility] AND [id number] 15:48:00 Test Item Value Reference Range Interpretation Comments UA RBC (test code = 3 See_Comment [Automa regi message] The UA RBC) system which ge nerated this result transmit regi reference range : <=2. The reference range was not used to interpr et this result as nela l/abnormal. [facility] AND [id number] 15:48:00 Test Item Value Reference Range Interpretation Comments UA Bili (test code = Negative *NA*(04/09/16 UA Bili) 10:48 AM) [facility] AND [id number] 15:48:00 Test Item Value Reference Range Interpretation Comments UA Glucose (test code = UA Negative mg/dL Glucose) [facility] AND [id number] 15:48:00 Test Item Value Reference Range Interpretation Comments UA Ketones (test code = UA Negative mg/dL Ketones) [facility] AND [id number] 15:48:00 Test Item Value Reference Range Interpretation Comments UA [place] Yeast (test code = UA Occasional /HPF [place] Yeast) [facility] AND [id number] 15:48:00 Test Item Value Reference Range Interpretation Comments UA Turbidity (test code Marked *ABN*(04/09/16 = UA Turbidity) 10:48 AM) [facility] AND [id number] 15:48:00 Test Item Value Reference Range Interpretation Comments UA Color (test code = Yellow *NA*(04/09/16 UA Color) 10:48 AM) [facility] AND [id number] 15:48:00 Test Item Value Reference Range Interpretation Comments UA Urobilinogen (test code = UA <=1.0 mg/dL 0.1-1.0 Urobilinogen) [facility] [id number] 15:48:00 Test Item Value Reference Range Interpretation Comments U Preg (test code = U Negative (04/09/16 10:48 Preg) AM) [facility] [id number] 15:48:00 Test Item Value Reference Range Interpretation Comments eGFR (test code = eGFR) 108 [facility]2016-10-18 15:48:00 Test Item Value Reference Range Interpretation Comments Bili Total (test code = Bili Total) 0.3 0.2-1.3 [facility]2016-10-18 15:48:00 Test Item Value Reference Range Interpretation Comments Alk Phos (test code = Alk Phos) 103 39-136 [facility]2016-10-18 15:48:00 Test Item Value Reference Range Interpretation Comments CO2 (test code = CO2) 22 24-32 [facility] [id number] 15:48:00 Test Item Value Reference Range Interpretation Comments Calcium Lvl (test code = Calcium Lvl) 8.9 8.5-10.5 [facility]2016-10-18 15:48:00 Test Item Value Reference Range Interpretation Comments AST (test code = AST) 51 See_Comment [Auto mated message] The system which ge nerated this result transmit regi reference range : <=37. The reference range was not used to interpr et this result as nela l/abnormal. [facility]2016-10-18 15:48:00 Test Item Value Reference Range Interpretation Comments ALT (test code = ALT) 84 See_Comment [Auto mated message] The system which ge nerated this result transmit regi reference range : <=65. The reference range was not used to interpr et this result as nela l/abnormal. [facility]2016-10-18 15:48:00 Test Item Value Reference Range Interpretation Comments Total Protein (test code = Total 9.4 6.4-8.4 Protein) [facility]2016-10-18 15:48:00 Test Item Value Reference Range Interpretation Comments Albumin Lvl (test code = Albumin Lvl) 4.0 3.5-5.0 [facility]2016-10-18 15:48:00 Test Item Value Reference Range Interpretation Comments Potassium Lvl (test code = Potassium 3.1 3.5-5.1 Lvl) [facility]2016-10-18 15:48:00 Test Item Value Reference Range Interpretation Comments Chloride Lvl (test code = Chloride Lvl) 104 95-109 [facility]2016-10-18 15:48:00 Test Item Value Reference Range Interpretation Comments Glucose Lvl (test code = Glucose Lvl) 120 70-99 [facility]2016-10-18 15:48:00 Test Item Value Reference Range Interpretation Comments Creatinine Lvl (test code = Creatinine 0.75 0.50-1.40 Lvl) [facility]2016-10-18 15:48:00 Test Item Value Reference Range Interpretation Comments Sodium Lvl (test code = Sodium Lvl) 137 135-145 [facility]2016-10-18 15:48:00 Test Item Value Reference Range Interpretation Comments BUN (test code = BUN) 9 7-22 [facility]2016-10-18 15:48:00 Test Item Value Reference Range Interpretation Comments Globulin (test code = Globulin) 5.4 2.7-4.2 [facility]2016-10-18 15:48:00 Test Item Value Reference Range Interpretation Comments A/G Ratio (test code = A/G Ratio) 0.7 0.7-1.6 [facility]2016-10-18 15:48:00 Test Item Value Reference Range Interpretation Comments B/C Ratio (test code = B/C Ratio) 12 6-25 [facility]2016-10-18 15:48:00 Test Item Value Reference Range Interpretation Comments AGAP (test code = AGAP) 14.1 10.0-20.0 [facility]2016-10-18 15:48:00 Test Item Value Reference Range Interpretation Comments Lipase Lvl (test code = Lipase Lvl) 643 81-393 [facility]stEmaiunfUMBZFZKMWR0520-90-54 15:48:00 Test Item Value Reference Range Interpretation Comments MPV (test code = MPV) 8.5 7.4-10.4 [id number] 15:48:00 Test Item Value Reference Range Interpretation Comments Platelet (test code = Platelet) 339 133-450 [id number] 15:48:00 Test Item Value Reference Range Interpretation Comments RDW (test code = RDW) 12.3 11.5-14.5 [id number] 15:48:00 Test Item Value Reference Range Interpretation Comments MCH (test code = MCH) 29.1 pg 27.0-31.0 [id number] 15:48:00 Test Item Value Reference Range Interpretation Comments MCV (test code = MCV) 87.2 80.0-98.0 [facility]stPcytvwnCYBQXNSCVH5156-80-12 15:48:00 Test Item Value Reference Range Interpretation Comments WBC (test code = WBC) 10.4 3.7-10.4 [id number] 15:48:00 Test Item Value Reference Range Interpretation Comments Hct (test code = Hct) 47.3 36.0-48.0 [facility]stWxmwratVMVSBIALKQ3321-11-08 15:48:00 Test Item Value Reference Range Interpretation Comments Hgb (test code = Hgb) 15.8 12.0-16.0 [facility]stHkdpajlTUFLPLLYSH4529-74-65 15:48:00 Test Item Value Reference Range Interpretation Comments MCHC (test code = MCHC) 33.4 32.0-36.0 [id number] 15:48:00 Test Item Value Reference Range Interpretation Comments RBC (test code = RBC) 5.42 4.20-5.40 [id number] 15:48:00 Test Item Value Reference Range Interpretation Comments Lymphocytes (test code = Lymphocytes) 12.6 20.0-40.0 [facility]stDmtbouxDFONWWWOTB3457-16-31 15:48:00 Test Item Value Reference Range Interpretation Comments Segs (test code = Segs) 73.5 45.0-75.0 [id number] 15:48:00 Test Item Value Reference Range Interpretation Comments Monocytes (test code = Monocytes) 12.8 2.0-12.0 [id number] 15:48:00 Test Item Value Reference Range Interpretation Comments Eosinophils (test code = 0.9 See_Comment [A utomated message] The Eosinophils) system which ge nerated this result tra nsmitted reference range : <=4.0. The reference r kenneth was not used to int erpret this result as normal/abnormal . [facility] Hi[id number] 15:48:00 Test Item Value Reference Range Interpretation Comments Basophils (test code = 0.2 See_Comment [Aut omated message] The Basophils) system which ge nerated this result tra nsmitted reference range : <=1.0. The reference r kenneth was not used to int erpret this result as normal/abnormal . [id number] 15:48:00 Test Item Value Reference Range Interpretation Comments Lymphocytes # (test code = Lymphocytes 1.3 1.0-5.5 #) [id number] 15:48:00 Test Item Value Reference Range Interpretation Comments Segs-Bands # (test code = Segs-Bands #) 7.7 1.5-8.1 [id number] 15:48:00 Test Item Value Reference Range Interpretation Comments Monocytes # (test code 1.3 See_Comment [Aut omated message] The = Monocytes #) system which generated this result tra nsmitted reference range : <=0.8. The reference r kenneth was not used to int erpret this result as normal/abnormal . [id number] 15:48:00 Test Item Value Reference Range Interpretation Comments Eosinophils # (test code 0.1 See_Comment [A utomated message] The = Eosinophils #) system [facility] h generated this result tra nsmitted reference range : <=0.5. The reference r kenneth was not used to int erpret this result as normal/abnormal . [id number] 15:48:00 Test Item Value Reference Range Interpretation Comments Basophils # (test code 0.0 See_Comment [Aut omated message] The = Basophils #) system which generated this result tra nsmitted reference range : <=0.2. The reference r kenneth was not used to int erpret this result as normal/abnormal . [facility]2016-10-18 15:48:00 Test Item Value Reference Range Interpretation Comments UA Sq Epi (test code = UA Sq Epi) None Seen [facility] AND [id number] 15:48:00 Test Item Value Reference Range Interpretation Comments UA Leuk Est (test Negative (04/09/16 10:48 code = UA Leuk Est) AM) [facility] AND [id number] 15:48:00 Test Item Value Reference Range Interpretation Comments UA WBC (test code = 19 See_Comment [Automa regi message] The UA WBC) system which ge nerated this result transmit regi reference range : <=5. The reference range was not used to interpr et this result as nela l/abnormal. [facility] AND [id number] 15:48:00 Test Item Value Reference Range Interpretation Comments UA Nitrite (test code Negative (04/09/16 = UA Nitrite) 10:48 AM) [facility] AND [id number] 15:48:00 Test Item Value Reference Range Interpretation Comments UA Blood (test code = Small *ABN*(04/09/16 UA Blood) 10:48 AM) [facility] AND [id number] 15:48:00 Test Item Value Reference Range Interpretation Comments UA Protein (test code = UA Protein) 100 mg/dL [facility] AND [id number] 15:48:00 Test Item Value Reference Range Interpretation Comments UA pH (test code = UA pH) 6.0 5.0-8.0 [facility] AND [id number] 15:48:00 Test Item Value Reference Range Interpretation Comments UA Spec Grav (test code = UA Spec Grav) 1.024 [facility] AND [id number] 15:48:00 Test Item Value Reference Range Interpretation Comments UA CaOx Leslie (test code = UA CaOx Many /HPF Leslie) [facility] AND [id number] 15:48:00 Test Item Value Reference Range Interpretation Comments UA Mucus (test code = UA Mucus) Few /LPF [facility] AND [id number] 15:48:00 Test Item Value Reference Range Interpretation Comments UA RBC (test code = 3 See_Comment [Automa regi message] The UA RBC) system which ge nerated this result transmit regi reference range : <=2. The reference range was not used to interpr et this result as nela l/abnormal. [facility] [id number] 15:48:00 Test Item Value Reference Range Interpretation Comments UA Bili (test code = Negative *NA*(04/09/16 UA Bili) 10:48 AM) [facility] [id number] 15:48:00 Test Item Value Reference Range Interpretation Comments UA Glucose (test code = UA Negative mg/dL Glucose) [facility] [id number] 15:48:00 Test Item Value Reference Range Interpretation Comments UA Ketones (test code = UA Negative mg/dL Ketones) [facility] [id number] 15:48:00 Test Item Value Reference Range Interpretation Comments UA [place] Yeast (test code = UA Occasional /HPF [place] Yeast) [facility] [id number] 15:48:00 Test Item Value Reference Range Interpretation Comments UA Turbidity (test code Marked *ABN*(04/09/16 = UA Turbidity) 10:48 AM) [facility] [id number] 15:48:00 Test Item Value Reference Range Interpretation Comments UA Color (test code = Yellow *NA*(04/09/16 UA Color) 10:48 AM) [facility] [id number] 15:48:00 Test Item Value Reference Range Interpretation Comments UA Urobilinogen (test code = UA <=1.0 mg/dL 0.1-1.0 Urobilinogen) [facility] [id number] 15:48:00 Test Item Value Reference Range Interpretation Comments U Preg (test code = U Negative (04/09/16 10:48 Preg) AM) [facility]annCHE[facility] [id number] 15:48:00 Test Item Value Reference Range Interpretation Comments eGFR (test code = eGFR) 108 [facility]annCHE[facility] [id number] 15:48:00 Test Item Value Reference Range Interpretation Comments Bili Total (test code = Bili Total) 0.3 0.2-1.3 [facility]annCHEM [id number] 15:48:00 Test Item Value Reference Range Interpretation Comments Alk Phos (test code = Alk Phos) 103 39-136 [facility] [id number] 15:48:00 Test Item Value Reference Range Interpretation Comments CO2 (test code = CO2) 22 24-32 [facility]2016-10-18 15:48:00 Test Item Value Reference Range Interpretation Comments Calcium Lvl (test code = Calcium Lvl) 8.9 8.5-10.5 [facility]2016-10-18 15:48:00 Test Item Value Reference Range Interpretation Comments AST (test code = AST) 51 See_Comment [Auto mated message] The system which ge nerated this result transmit regi reference range : <=37. The reference range was not used to interpr et this result as nela l/abnormal. [facility]2016-10-18 15:48:00 Test Item Value Reference Range Interpretation Comments ALT (test code = ALT) 84 See_Comment [Auto mated message] The system which ge nerated this result transmit regi reference range : <=65. The reference range was not used to interpr et this result as nela l/abnormal. [facility]2016-10-18 15:48:00 Test Item Value Reference Range Interpretation Comments Total Protein (test code = Total 9.4 6.4-8.4 Protein) [facility]2016-10-18 15:48:00 Test Item Value Reference Range Interpretation Comments Albumin Lvl (test code = Albumin Lvl) 4.0 3.5-5.0 [facility]2016-10-18 15:48:00 Test Item Value Reference Range Interpretation Comments Potassium Lvl (test code = Potassium 3.1 3.5-5.1 Lvl) [facility]2016-10-18 15:48:00 Test Item Value Reference Range Interpretation Comments Chloride Lvl (test code = Chloride Lvl) 104 95-109 [facility]2016-10-18 15:48:00 Test Item Value Reference Range Interpretation Comments Glucose Lvl (test code = Glucose Lvl) 120 70-99 [facility]2016-10-18 15:48:00 Test Item Value Reference Range Interpretation Comments Creatinine Lvl (test code = Creatinine 0.75 0.50-1.40 Lvl) [facility]2016-10-18 15:48:00 Test Item Value Reference Range Interpretation Comments Sodium Lvl (test code = Sodium Lvl) 137 135-145 [facility]2016-10-18 15:48:00 Test Item Value Reference Range Interpretation Comments BUN (test code = BUN) 9 7-22 [facility]2016-10-18 15:48:00 Test Item Value Reference Range Interpretation Comments Globulin (test code = Globulin) 5.4 2.7-4.2 [facility]2016-10-18 15:48:00 Test Item Value Reference Range Interpretation Comments A/G Ratio (test code = A/G Ratio) 0.7 0.7-1.6 [facility]2016-10-18 15:48:00 Test Item Value Reference Range Interpretation Comments B/C Ratio (test code = B/C Ratio) 12 6-25 [facility]2016-10-18 15:48:00 Test Item Value Reference Range Interpretation Comments AGAP (test code = AGAP) 14.1 10.0-20.0 [facility]2016-10-18 15:48:00 Test Item Value Reference Range Interpretation Comments Lipase Lvl (test code = Lipase Lvl) 634 76-393 [id number] 15:48:00 Test Item Value Reference Range Interpretation Comments MPV (test code = MPV) 8.5 7.4-10.4 [facility]stWxjqvzqOYUNSDFMHN9229-77-56 15:48:00 Test Item Value Reference Range Interpretation Comments Platelet (test code = Platelet) 339 133-450 [facility]stPmldwtfJZTYUGKHDV6393-27-60 15:48:00 Test Item Value Reference Range Interpretation Comments RDW (test code = RDW) 12.3 11.5-14.5 [facility]stBaykbmqINRCLTLKMK8035-49-60 15:48:00 Test Item Value Reference Range Interpretation Comments MCH (test code = MCH) 29.1 pg 27.0-31.0 [facility]stGexncaiFFHKNZSHFZ2874-50-63 15:48:00 Test Item Value Reference Range Interpretation Comments MCV (test code = MCV) 87.2 80.0-98.0 [facility]stErpuudrXDKESUXHXH4582-69-03 15:48:00 Test Item Value Reference Range Interpretation Comments WBC (test code = WBC) 10.4 3.7-10.4 [facility]stSczpztpGOPSNGGXFK8432-57-07 15:48:00 Test Item Value Reference Range Interpretation Comments Hct (test code = Hct) 47.3 36.0-48.0 [facility]stPfzsrisHCAOBOBIWA4829-26-38 15:48:00 Test Item Value Reference Range Interpretation Comments Hgb (test code = Hgb) 15.8 12.0-16.0 [facility]stTtcntnmKVGIWKDBED6252-35-45 15:48:00 Test Item Value Reference Range Interpretation Comments MCHC (test code = MCHC) 33.4 32.0-36.0 [facility]stGgjtsayPKTUNJXCWK2483-39-03 15:48:00 Test Item Value Reference Range Interpretation Comments RBC (test code = RBC) 5.42 4.20-5.40 [facility]stXfkvbsjQLDEORYTMV7102-04-56 15:48:00 Test Item Value Reference Range Interpretation Comments Lymphocytes (test code = Lymphocytes) 12.6 20.0-40.0 [facility]stEqrzmwjVHJOUUVUYG0440-45-32 15:48:00 Test Item Value Reference Range Interpretation Comments Segs (test code = Segs) 73.5 45.0-75.0 [facility]stSwgtjkmOOCERGEJOV3316-35-91 15:48:00 Test Item Value Reference Range Interpretation Comments Monocytes (test code = Monocytes) 12.8 2.0-12.0 [facility]stJfrcefdUBQMDMSIPY6537-67-57 15:48:00 Test Item Value Reference Range Interpretation Comments Eosinophils (test code = 0.9 See_Comment [A utomated message] The Eosinophils) system which ge nerated this result tra nsmitted reference range : <=4.0. The reference r kenneth was not used to int erpret this result as normal/abnormal . [facility]stFthupgjERGFYKVYWT0763-68-68 15:48:00 Test Item Value Reference Range Interpretation Comments Basophils (test code = 0.2 See_Comment [Aut omated message] The Basophils) system which ge nerated this result tra nsmitted reference range : <=1.0. The reference r kenneth was not used to int erpret this result as normal/abnormal . [facility]stFgqtoltZBNQPRKKRI7452-88-85 15:48:00 Test Item Value Reference Range Interpretation Comments Lymphocytes # (test code = Lymphocytes 1.3 1.0-5.5 #) [facility]crestUwdaachOAOEYAZKPF8616-34-41 15:48:00 Test Item Value Reference Range Interpretation Comments Segs-Bands # (test code = Segs-Bands #) 7.7 1.5-8.1 [facility]stIrupdzfERAUFJPJYE2386-48-23 15:48:00 Test Item Value Reference Range Interpretation Comments Monocytes # (test code 1.3 See_Comment [Aut omated message] The = Monocytes #) system which generated this result tra nsmitted reference range : <=0.8. The reference r kenneth was not used to int erpret this result as normal/abnormal . [facility]stPdilzcdYBIRUCOIOI1222-83-37 15:48:00 Test Item Value Reference Range Interpretation Comments Eosinophils # (test code 0.1 See_Comment [A utomated message] The = Eosinophils #) system whic h generated this result tra nsmitted reference range : <=0.5. The reference r kenneth was not used to int erpret this result as normal/abnormal . [facility]stYcnjxorAEFPEEABVY0915-13-07 15:48:00 Test Item Value Reference Range Interpretation Comments Basophils # (test code 0.0 See_Comment [Aut omated message] The = Basophils #) system which generated this result tra nsmitted reference range : <=0.2. The reference r kenneth was not used to int erpret this result as normal/abnormal . [facility] AND [id number] 15:48:00 Test Item Value Reference Range Interpretation Comments UA Sq Epi (test code = UA Sq Epi) None Seen [facility] AND [id number] 15:48:00 Test Item Value Reference Range Interpretation Comments UA Leuk Est (test Negative (04/09/16 10:48 code = UA Leuk Est) AM) [facility] AND [id number] 15:48:00 Test Item Value Reference Range Interpretation Comments UA WBC (test code = 19 See_Comment [Automa regi message] The UA WBC) system which ge nerated this result transmit regi reference range : <=5. The reference range was not used to interpr et this result as nela l/abnormal. [facility] AND [id number] 15:48:00 Test Item Value Reference Range Interpretation Comments UA Nitrite (test code Negative (04/09/16 = UA Nitrite) 10:48 AM) [facility] AND [id number] 15:48:00 Test Item Value Reference Range Interpretation Comments UA Blood (test code = Small *ABN*(04/09/16 UA Blood) 10:48 AM) [facility] AND [id number] 15:48:00 Test Item Value Reference Range Interpretation Comments UA Protein (test code = UA Protein) 100 mg/dL [facility] AND [id number] 15:48:00 Test Item Value Reference Range Interpretation Comments UA pH (test code = UA pH) 6.0 5.0-8.0 [facility] AND [id number] 15:48:00 Test Item Value Reference Range Interpretation Comments UA Spec Grav (test code = UA Spec Grav) 1.024 [facility] AND [id number] 15:48:00 Test Item Value Reference Range Interpretation Comments UA CaOx Leslie (test code = UA CaOx Many /HPF Leslie) [facility] AND [id number] 15:48:00 Test Item Value Reference Range Interpretation Comments UA Mucus (test code = UA Mucus) Few /LPF [facility] AND [id number] 15:48:00 Test Item Value Reference Range Interpretation Comments UA RBC (test code = 3 See_Comment [Automa regi message] The UA RBC) system which ge nerated this result transmit regi reference range : <=2. The reference range was not used to interpr et this result as nela l/abnormal. [facility] AND [id number] 15:48:00 Test Item Value Reference Range Interpretation Comments UA Bili (test code = Negative *NA*(04/09/16 UA Bili) 10:48 AM) [facility] AND [id number] 15:48:00 Test Item Value Reference Range Interpretation Comments UA Glucose (test code = UA Negative mg/dL Glucose) [facility] AND [id number] 15:48:00 Test Item Value Reference Range Interpretation Comments UA Ketones (test code = UA Negative mg/dL Ketones) [facility] AND [id number] 15:48:00 Test Item Value Reference Range Interpretation Comments UA [place] Yeast (test code = UA Occasional /HPF [place] Yeast) [facility] AND [id number] 15:48:00 Test Item Value Reference Range Interpretation Comments UA Turbidity (test code Marked *ABN*(04/09/16 = UA Turbidity) 10:48 AM) [facility] [id number] 15:48:00 Test Item Value Reference Range Interpretation Comments UA Color (test code = Yellow *NA*(04/09/16 UA Color) 10:48 AM) [facility] [id number] 15:48:00 Test Item Value Reference Range Interpretation Comments UA Urobilinogen (test code = UA <=1.0 mg/dL 0.1-1.0 Urobilinogen) [facility] [id number] 15:48:00 Test Item Value Reference Range Interpretation Comments U Preg (test code = U Negative (04/09/16 10:48 Preg) AM) [facility] [id number] 15:48:00 Test Item Value Reference Range Interpretation Comments eGFR (test code = eGFR) 108 [facility] [id number] 15:48:00 Test Item Value Reference Range Interpretation Comments Bili Total (test code = Bili Total) 0.3 0.2-1.3 [facility]2016-10-18 15:48:00 Test Item Value Reference Range Interpretation Comments Alk Phos (test code = Alk Phos) 103 39-136 [facility] [id number] 15:48:00 Test Item Value Reference Range Interpretation Comments CO2 (test code = CO2) 22 24-32 [facility] [id number] 15:48:00 Test Item Value Reference Range Interpretation Comments Calcium Lvl (test code = Calcium Lvl) 8.9 8.5-10.5 [facility]2016-10-18 15:48:00 Test Item Value Reference Range Interpretation Comments AST (test code = AST) 51 See_Comment [Auto mated message] The system which ge nerated this result transmit regi reference range : <=37. The reference range was not used to interpr et this result as nela l/abnormal. [facility]2016-10-18 15:48:00 Test Item Value Reference Range Interpretation Comments ALT (test code = ALT) 84 See_Comment [Auto mated message] The system which ge nerated this result transmit regi reference range : <=65. The reference range was not used to interpr et this result as nela l/abnormal. [facility]2016-10-18 15:48:00 Test Item Value Reference Range Interpretation Comments Total Protein (test code = Total 9.4 6.4-8.4 Protein) [facility]2016-10-18 15:48:00 Test Item Value Reference Range Interpretation Comments Albumin Lvl (test code = Albumin Lvl) 4.0 3.5-5.0 [facility]2016-10-18 15:48:00 Test Item Value Reference Range Interpretation Comments Potassium Lvl (test code = Potassium 3.1 3.5-5.1 Lvl) [facility]2016-10-18 15:48:00 Test Item Value Reference Range Interpretation Comments Chloride Lvl (test code = Chloride Lvl) 104 95-109 [facility]2016-10-18 15:48:00 Test Item Value Reference Range Interpretation Comments Glucose Lvl (test code = Glucose Lvl) 120 70-99 [facility]2016-10-18 15:48:00 Test Item Value Reference Range Interpretation Comments Creatinine Lvl (test code = Creatinine 0.75 0.50-1.40 Lvl) [facility]2016-10-18 15:48:00 Test Item Value Reference Range Interpretation Comments Sodium Lvl (test code = Sodium Lvl) 137 135-145 [facility]2016-10-18 15:48:00 Test Item Value Reference Range Interpretation Comments BUN (test code = BUN) 9 7-22 [facility]2016-10-18 15:48:00 Test Item Value Reference Range Interpretation Comments Globulin (test code = Globulin) 5.4 2.7-4.2 [facility]2016-10-18 15:48:00 Test Item Value Reference Range Interpretation Comments A/G Ratio (test code = A/G Ratio) 0.7 0.7-1.6 [facility]2016-10-18 15:48:00 Test Item Value Reference Range Interpretation Comments B/C Ratio (test code = B/C Ratio) 12 6-25 [facility]2016-10-18 15:48:00 Test Item Value Reference Range Interpretation Comments AGAP (test code = AGAP) 14.1 10.0-20.0 [facility]2016-10-18 15:48:00 Test Item Value Reference Range Interpretation Comments Lipase Lvl (test code = Lipase Lvl) 708 05-393 [facility]stTamwrjsBAIEWKGKBK1288-14-81 15:48:00 Test Item Value Reference Range Interpretation Comments MPV (test code = MPV) 8.5 7.4-10.4 [id number] 15:48:00 Test Item Value Reference Range Interpretation Comments Platelet (test code = Platelet) 339 133450 [id number] 15:48:00 Test Item Value Reference Range Interpretation Comments RDW (test code = RDW) 12.3 11.5-14.5 [id number] 15:48:00 Test Item Value Reference Range Interpretation Comments MCH (test code = MCH) 29.1 pg 27.0-31.0 [id number] 15:48:00 Test Item Value Reference Range Interpretation Comments MCV (test code = MCV) 87.2 80.0-98.0 [id number] 15:48:00 Test Item Value Reference Range Interpretation Comments WBC (test code = WBC) 10.4 3.7-10.4 [facility]stJsxjladVBWOAXRLGJ7928-69-29 15:48:00 Test Item Value Reference Range Interpretation Comments Hct (test code = Hct) 47.3 36.0-48.0 [id number] 15:48:00 Test Item Value Reference Range Interpretation Comments Hgb (test code = Hgb) 15.8 12.0-16.0 [facility]stIzzpecbFHZMYNYDSU1439-14-50 15:48:00 Test Item Value Reference Range Interpretation Comments MCHC (test code = MCHC) 33.4 32.0-36.0 [id number] 15:48:00 Test Item Value Reference Range Interpretation Comments RBC (test code = RBC) 5.42 4.20-5.40 [facility]stTwvckveOQPUNRFYDX6051-62-35 15:48:00 Test Item Value Reference Range Interpretation Comments Lymphocytes (test code = Lymphocytes) 12.6 20.0-40.0 [id number] 15:48:00 Test Item Value Reference Range Interpretation Comments Segs (test code = Segs) 73.5 45.0-75.0 [facility]stTnipiiuEUJWHLGRHQ8483-39-28 15:48:00 Test Item Value Reference Range Interpretation Comments Monocytes (test code = Monocytes) 12.8 2.0-12.0 [id number] 15:48:00 Test Item Value Reference Range Interpretation Comments Eosinophils (test code = 0.9 See_Comment [A utomated message] The Eosinophils) system which ge nerated this result tra nsmitted reference range : <=4.0. The reference r kenneth was not used to int erpret this result as normal/abnormal . [facility][id number] 15:48:00 Test Item Value Reference Range Interpretation Comments Basophils (test code = 0.2 See_Comment [Aut omated message] The Basophils) system which ge nerated this result tra nsmitted reference range : <=1.0. The reference r kenneth was not used to int erpret this result as normal/abnormal . [id number] 15:48:00 Test Item Value Reference Range Interpretation Comments Lymphocytes # (test code = Lymphocytes 1.3 1.0-5.5 #) [facility][id number] 15:48:00 Test Item Value Reference Range Interpretation Comments Segs-Bands # (test code = Segs-Bands #) 7.7 1.5-8.1 [id number] 15:48:00 Test Item Value Reference Range Interpretation Comments Monocytes # (test code 1.3 See_Comment [Aut omated message] The = Monocytes #) system which generated this result tra nsmitted reference range : <=0.8. The reference r kenneth was not used to int erpret this result as normal/abnormal . [facility]stLlifegnXFXYIWGEET2436-37-86 15:48:00 Test Item Value Reference Range Interpretation Comments Eosinophils # (test code 0.1 See_Comment [A utomated message] The = Eosinophils #) system whic h generated this result tra nsmitted reference range : <=0.5. The reference r kenneth was not used to int erpret this result as normal/abnormal . [facility]stUvvttqsLCVVVTPKLD0843-76-47 15:48:00 Test Item Value Reference Range Interpretation Comments Basophils # (test code 0.0 See_Comment [Aut omated message] The = Basophils #) system which generated this result tra nsmitted reference range : <=0.2. The reference r kenneth was not used to int erpret this result as normal/abnormal . [facility] AND [id number] 15:48:00 Test Item Value Reference Range Interpretation Comments UA Sq Epi (test code = UA Sq Epi) None Seen [facility] AND [id number] 15:48:00 Test Item Value Reference Range Interpretation Comments UA Leuk Est (test Negative (04/09/16 10:48 code = UA Leuk Est) AM) [facility] AND [id number] 15:48:00 Test Item Value Reference Range Interpretation Comments UA WBC (test code = 19 See_Comment [Automa regi message] The UA WBC) system which ge nerated this result transmit regi reference range : <=5. The reference range was not used to interpr et this result as nela l/abnormal. [facility] AND [id number] 15:48:00 Test Item Value Reference Range Interpretation Comments UA Nitrite (test code Negative (04/09/16 = UA Nitrite) 10:48 AM) [facility] AND [id number] 15:48:00 Test Item Value Reference Range Interpretation Comments UA Blood (test code = Small *ABN*(04/09/16 UA Blood) 10:48 AM) [facility] AND [id number] 15:48:00 Test Item Value Reference Range Interpretation Comments UA Protein (test code = UA Protein) 100 mg/dL [facility] AND [id number] 15:48:00 Test Item Value Reference Range Interpretation Comments UA pH (test code = UA pH) 6.0 5.0-8.0 [facility] AND [id number] 15:48:00 Test Item Value Reference Range Interpretation Comments UA Spec Grav (test code = UA Spec Grav) 1.024 [facility] AND [id number] 15:48:00 Test Item Value Reference Range Interpretation Comments UA CaOx Leslie (test code = UA CaOx Many /HPF Leslie) [facility] AND [id number] 15:48:00 Test Item Value Reference Range Interpretation Comments UA Mucus (test code = UA Mucus) Few /LPF [facility] [id number] 15:48:00 Test Item Value Reference Range Interpretation Comments UA RBC (test code = 3 See_Comment [Automa regi message] The UA RBC) system which ge nerated this result transmit regi reference range : <=2. The reference range was not used to interpr et this result as nela l/abnormal. [facility] AND [id number] 15:48:00 Test Item Value Reference Range Interpretation Comments UA Bili (test code = Negative *NA*(04/09/16 UA Bili) 10:48 AM) [facility] [id number] 15:48:00 Test Item Value Reference Range Interpretation Comments UA Glucose (test code = UA Negative mg/dL Glucose) [facility] [id number] 15:48:00 Test Item Value Reference Range Interpretation Comments UA Ketones (test code = UA Negative mg/dL Ketones) [facility] [id number] 15:48:00 Test Item Value Reference Range Interpretation Comments UA [place] Yeast (test code = UA Occasional /HPF [place] Yeast) [facility] AND [id number] 15:48:00 Test Item Value Reference Range Interpretation Comments UA Turbidity (test code Marked *ABN*(04/09/16 = UA Turbidity) 10:48 AM) [facility] [id number] 15:48:00 Test Item Value Reference Range Interpretation Comments UA Color (test code = Yellow *NA*(04/09/16 UA Color) 10:48 AM) [facility] [id number] 15:48:00 Test Item Value Reference Range Interpretation Comments UA Urobilinogen (test code = UA <=1.0 mg/dL 0.1-1.0 Urobilinogen) [facility] [id number] 15:48:00 Test Item Value Reference Range Interpretation Comments U Preg (test code = U Negative (04/09/16 10:48 Preg) AM) [facility]annCHEM [id number] 15:48:00 Test Item Value Reference Range Interpretation Comments eGFR (test code = eGFR) 108 [facility]annCHEM [id number] 15:48:00 Test Item Value Reference Range Interpretation Comments Bili Total (test code = Bili Total) 0.3 0.2-1.3 [facility]2016-10-18 15:48:00 Test Item Value Reference Range Interpretation Comments Alk Phos (test code = Alk Phos) 103 39-136 [facility]2016-10-18 15:48:00 Test Item Value Reference Range Interpretation Comments CO2 (test code = CO2) 22 24-32 [facility]2016-10-18 15:48:00 Test Item Value Reference Range Interpretation Comments Calcium Lvl (test code = Calcium Lvl) 8.9 8.5-10.5 [facility]2016-10-18 15:48:00 Test Item Value Reference Range Interpretation Comments AST (test code = AST) 51 See_Comment [Auto mated message] The system which ge nerated this result transmit regi reference range : <=37. The reference range was not used to interpr et this result as nela l/abnormal. [facility]2016-10-18 15:48:00 Test Item Value Reference Range Interpretation Comments ALT (test code = ALT) 84 See_Comment [Auto mated message] The system which ge nerated this result transmit regi reference range : <=65. The reference range was not used to interpr et this result as nela l/abnormal. [facility]2016-10-18 15:48:00 Test Item Value Reference Range Interpretation Comments Total Protein (test code = Total 9.4 6.4-8.4 Protein) [facility]2016-10-18 15:48:00 Test Item Value Reference Range Interpretation Comments Albumin Lvl (test code = Albumin Lvl) 4.0 3.5-5.0 [facility]2016-10-18 15:48:00 Test Item Value Reference Range Interpretation Comments Potassium Lvl (test code = Potassium 3.1 3.5-5.1 Lvl) [facility] 5 NetworksHAY[facility] MED[facility] [id number] 15:48:00 Test Item Value Reference Range Interpretation Comments Chloride Lvl (test code = Chloride Lvl) 104 95-109 [facility]2016-10-18 15:48:00 Test Item Value Reference Range Interpretation Comments Glucose Lvl (test code = Glucose Lvl) 120 70-99 [facility] AntonioAl[employer] [id number] 15:48:00 Test Item Value Reference Range Interpretation Comments Creatinine Lvl (test code = Creatinine 0.75 0.50-1.40 Lvl) [facility]2016-10-18 15:48:00 Test Item Value Reference Range Interpretation Comments Sodium Lvl (test code = Sodium Lvl) 137 135-145 [facility]2016-10-18 15:48:00 Test Item Value Reference Range Interpretation Comments BUN (test code = BUN) 9 7-22 [facility]2016-10-18 15:48:00 Test Item Value Reference Range Interpretation Comments Globulin (test code = Globulin) 5.4 2.7-4.2 [facility]2016-10-18 15:48:00 Test Item Value Reference Range Interpretation Comments A/G Ratio (test code = A/G Ratio) 0.7 0.7-1.6 [facility]2016-10-18 15:48:00 Test Item Value Reference Range Interpretation Comments B/C Ratio (test code = B/C Ratio) 12 6-25 [facility]2016-10-18 15:48:00 Test Item Value Reference Range Interpretation Comments AGAP (test code = AGAP) 14.1 10.0-20.0 [facility]2016-10-18 15:48:00 Test Item Value Reference Range Interpretation Comments Lipase Lvl (test code = Lipase Lvl) 635 39-393 [id number] 15:48:00 Test Item Value Reference Range Interpretation Comments MPV (test code = MPV) 8.5 7.4-10.4 [facility]stMctcohqDPBJHPAQGT2459-36-39 15:48:00 Test Item Value Reference Range Interpretation Comments Platelet (test code = Platelet) 339 133-450 [facility]stSvhapwgJOBYYWYSIU4736-74-94 15:48:00 Test Item Value Reference Range Interpretation Comments RDW (test code = RDW) 12.3 11.5-14.5 [id number] 15:48:00 Test Item Value Reference Range Interpretation Comments MCH (test code = MCH) 29.1 pg 27.0-31.0 [facility]stUfoscbhIKYEZOMMLH3556-75-36 15:48:00 Test Item Value Reference Range Interpretation Comments MCV (test code = MCV) 87.2 80.0-98.0 [facility]stJbhidwfHEEGZGLEIJ0764-99-59 15:48:00 Test Item Value Reference Range Interpretation Comments WBC (test code = WBC) 10.4 3.7-10.4 [facility]stSrrcvicBEJGPDDUJR3319-82-50 15:48:00 Test Item Value Reference Range Interpretation Comments Hct (test code = Hct) 47.3 36.0-48.0 [facility]stBdbxbygELEXTKBMMB6779-99-20 15:48:00 Test Item Value Reference Range Interpretation Comments Hgb (test code = Hgb) 15.8 12.0-16.0 [facility]stKcxnoacXQGLJWBDMG0131-39-96 15:48:00 Test Item Value Reference Range Interpretation Comments MCHC (test code = MCHC) 33.4 32.0-36.0 [facility]stAkwrlolDPWSARKUPA6693-51-91 15:48:00 Test Item Value Reference Range Interpretation Comments RBC (test code = RBC) 5.42 4.20-5.40 [facility]stKhmysmfJBTJQGGZKO7749-01-56 15:48:00 Test Item Value Reference Range Interpretation Comments Lymphocytes (test code = Lymphocytes) 12.6 20.0-40.0 [facility]stPkstrjkESRQBYPZWK8918-83-81 15:48:00 Test Item Value Reference Range Interpretation Comments Segs (test code = Segs) 73.5 45.0-75.0 [facility]stXxauxpkXIELAPIHLO7024-87-90 15:48:00 Test Item Value Reference Range Interpretation Comments Monocytes (test code = Monocytes) 12.8 2.0-12.0 [facility]stFllxolhMSWNMMQRMI5581-36-82 15:48:00 Test Item Value Reference Range Interpretation Comments Eosinophils (test code = 0.9 See_Comment [A utomated message] The Eosinophils) system which ge nerated this result tra nsmitted reference range : <=4.0. The reference r kenneth was not used to int erpret this result as normal/abnormal . [facility]stCfmsktuHEPSUNDBAQ3320-90-50 15:48:00 Test Item Value Reference Range Interpretation Comments Basophils (test code = 0.2 See_Comment [Aut omated message] The Basophils) system which ge nerated this result tra nsmitted reference range : <=1.0. The reference r kenneth was not used to int erpret this result as normal/abnormal . [place] [id number] 15:48:00 Test Item Value Reference Range Interpretation Comments Lymphocytes # (test code = Lymphocytes 1.3 1.0-5.5 #) [facility]stPyiucwjKWUXXGHVJH5764-29-46 15:48:00 Test Item Value Reference Range Interpretation Comments Segs-Bands # (test code = Segs-Bands #) 7.7 1.5-8.1 [facility]stFxzguljBUKHUKFFFM9786-59-15 15:48:00 Test Item Value Reference Range Interpretation Comments Monocytes # (test code 1.3 See_Comment [Aut omated message] The = Monocytes #) system which generated this result tra nsmitted reference range : <=0.8. The reference r kenneth was not used to int erpret this result as normal/abnormal . [facility]stWqehwduGUNPNBEOYV0118-62-76 15:48:00 Test Item Value Reference Range Interpretation Comments Eosinophils # (test code 0.1 See_Comment [A utomated message] The = Eosinophils #) system whic h generated this result tra nsmitted reference range : <=0.5. The reference r kenneth was not used to int erpret this result as normal/abnormal . [facility]stSkymvkxUGUHTHGIMQ4458-94-93 15:48:00 Test Item Value Reference Range Interpretation Comments Basophils # (test code 0.0 See_Comment [Aut omated message] The = Basophils #) system which generated this result tra nsmitted reference range : <=0.2. The reference r kenneth was not used to int erpret this result as normal/abnormal . [facility] AND [id number] 15:48:00 Test Item Value Reference Range Interpretation Comments UA Sq Epi (test code = UA Sq Epi) None Seen [facility] AND [id number] 15:48:00 Test Item Value Reference Range Interpretation Comments UA Leuk Est (test Negative (04/09/16 10:48 code = UA Leuk Est) AM) [facility]2016-10-18 15:48:00 Test Item Value Reference Range Interpretation Comments eGFR (test code = eGFR) 108 [facility]2016-10-18 15:48:00 Test Item Value Reference Range Interpretation Comments Bili Total (test code = Bili Total) 0.3 0.2-1.3 [facility]2016-10-18 15:48:00 Test Item Value Reference Range Interpretation Comments Alk Phos (test code = Alk Phos) 103 39-136 [facility]2016-10-18 15:48:00 Test Item Value Reference Range Interpretation Comments CO2 (test code = CO2) 22 24-32 [facility]2016-10-18 15:48:00 Test Item Value Reference Range Interpretation Comments Calcium Lvl (test code = Calcium Lvl) 8.9 8.5-10.5 [facility]2016-10-18 15:48:00 Test Item Value Reference Range Interpretation Comments AST (test code = AST) 51 See_Comment [Auto mated message] The system which ge nerated this result transmit regi reference range : <=37. The reference range was not used to interpr et this result as nela l/abnormal. [facility] AND [id number] 15:48:00 Test Item Value Reference Range Interpretation Comments UA WBC (test code = 19 See_Comment [Automa regi message] The UA WBC) system which ge nerated this result transmit regi reference range : <=5. The reference range was not used to interpr et this result as nela l/abnormal. [facility]2016-10-18 15:48:00 Test Item Value Reference Range Interpretation Comments ALT (test code = ALT) 84 See_Comment [Auto mated message] The system which ge nerated this result transmit regi reference range : <=65. The reference range was not used to interpr et this result as nela l/abnormal. [facility]2016-10-18 15:48:00 Test Item Value Reference Range Interpretation Comments Total Protein (test code = Total 9.4 6.4-8.4 Protein) [facility]2016-10-18 15:48:00 Test Item Value Reference Range Interpretation Comments Albumin Lvl (test code = Albumin Lvl) 4.0 3.5-5.0 [facility]2016-10-18 15:48:00 Test Item Value Reference Range Interpretation Comments Potassium Lvl (test code = Potassium 3.1 3.5-5.1 Lvl) [facility]2016-10-18 15:48:00 Test Item Value Reference Range Interpretation Comments Chloride Lvl (test code = Chloride Lvl) 104 95-109 [facility] [id number] 15:48:00 Test Item Value Reference Range Interpretation Comments Glucose Lvl (test code = Glucose Lvl) 120 70-99 [facility] [id number] 15:48:00 Test Item Value Reference Range Interpretation Comments Creatinine Lvl (test code = Creatinine 0.75 0.50-1.40 Lvl) [facility]2016-10-18 15:48:00 Test Item Value Reference Range Interpretation Comments Sodium Lvl (test code = Sodium Lvl) 137 135-145 [facility] [id number] 15:48:00 Test Item Value Reference Range Interpretation Comments BUN (test code = BUN) 9 7-22 [facility] [id number] 15:48:00 Test Item Value Reference Range Interpretation Comments Globulin (test code = Globulin) 5.4 2.7-4.2 [facility] AND [id number] 15:48:00 Test Item Value Reference Range Interpretation Comments UA Nitrite (test code Negative (04/09/16 = UA Nitrite) 10:48 AM) [facility] [id number] 15:48:00 Test Item Value Reference Range Interpretation Comments A/G Ratio (test code = A/G Ratio) 0.7 0.7-1.6 [facility]2016-10-18 15:48:00 Test Item Value Reference Range Interpretation Comments B/C Ratio (test code = B/C Ratio) 12 6-25 [facility]2016-10-18 15:48:00 Test Item Value Reference Range Interpretation Comments AGAP (test code = AGAP) 14.1 10.0-20.0 [facility]2016-10-18 15:48:00 Test Item Value Reference Range Interpretation Comments Lipase Lvl (test code = Lipase Lvl) 63 [address]93 [facility]OIMXZLSPFY4513-54-07 15:48:00 Test Item Value Reference Range Interpretation Comments MPV (test code = MPV) 8.5 7.4-10.4 [facility]stCybumgjXCAQACXWCE8741-11-24 15:48:00 Test Item Value Reference Range Interpretation Comments Platelet (test code = Platelet) 339 133-450 [facility]stTtwnqghWNPVWMMBLE4197-91-49 15:48:00 Test Item Value Reference Range Interpretation Comments RDW (test code = RDW) 12.3 11.5-14.5 [facility]HwstkimLFOCLIIRDE7397-00-18 15:48:00 Test Item Value Reference Range Interpretation Comments MCH (test code = MCH) 29.1 pg 27.0-31.0 [facility] AntonioYtoussmJAILPPUDRE6794-30-30 15:48:00 Test Item Value Reference Range Interpretation Comments MCV (test code = MCV) 87.2 80.0-98.0 [facility] AntonioVfpmoiyWGCQEYPXVE6553-28-41 15:48:00 Test Item Value Reference Range Interpretation Comments WBC (test code = WBC) 10.4 3.7-10.4 [facility]2016-10-18 15:48:00 Test Item Value Reference Range Interpretation Comments UA Blood (test code = Small *ABN*(04/09/16 UA Blood) 10:48 AM) [facility]AamowxxYOQSIJAKDL6015-06-96 15:48:00 Test Item Value Reference Range Interpretation Comments Hct (test code = Hct) 47.3 36.0-48.0 [facility]PxeequyMSIPSBNRVQ8728-38-21 15:48:00 Test Item Value Reference Range Interpretation Comments Hgb (test code = Hgb) 15.8 12.0-16.0 [facility] HospitalBbgdyuqDTMOHGHFKC8395-00-32 15:48:00 Test Item Value Reference Range Interpretation Comments MCHC (test code = MCHC) 33.4 32.0-36.0 [facility] HospitalTrzyjpwELGMMQIBWN4937-21-84 15:48:00 Test Item Value Reference Range Interpretation Comments RBC (test code = RBC) 5.42 4.20-5.40 [facility] AntonioSxizollEVLLUHGJSZ5488-16-74 15:48:00 Test Item Value Reference Range Interpretation Comments Lymphocytes (test code = Lymphocytes) 12.6 20.0-40.0 [facility] HospitalTehclfcRLLFASNYYO4863-29-87 15:48:00 Test Item Value Reference Range Interpretation Comments Segs (test code = Segs) 73.5 45.0-75.0 [facility] HospitalLqkkonsIAFIFLEKHK2460-75-88 15:48:00 Test Item Value Reference Range Interpretation Comments Monocytes (test code = Monocytes) 12.8 2.0-12.0 [facility] HospitalMrflxkcHCWAADPJXW5384-93-14 15:48:00 Test Item Value Reference Range Interpretation Comments Eosinophils (test code = 0.9 See_Comment [A utomated message] The Eosinophils) system which ge nerated this result tra nsmitted reference range : <=4.0. The reference r kenneth was not used to int erpret this result as normal/abnormal . [facility][id number] 15:48:00 Test Item Value Reference Range Interpretation Comments Basophils (test code = 0.2 See_Comment [Aut omated message] The Basophils) system which ge nerated this result tra nsmitted reference range : <=1.0. The reference r kenneth was not used to int erpret this result as normal/abnormal . [facility]stSkyutmjJKPXNWRFQQ2054-40-98 15:48:00 Test Item Value Reference Range Interpretation Comments Lymphocytes # (test code = Lymphocytes 1.3 1.0-5.5 #) [facility]2016-10-18 15:48:00 Test Item Value Reference Range Interpretation Comments UA Protein (test code = UA Protein) 100 mg/dL [facility]stZfonkpgYJJLGDJJVA5127-06-06 15:48:00 Test Item Value Reference Range Interpretation Comments Segs-Bands # (test code = Segs-Bands #) 7.7 1.5-8.1 [facility]stIzmhxmjZCFKOKQDJD1719-13-57 15:48:00 Test Item Value Reference Range Interpretation Comments Monocytes # (test code 1.3 See_Comment [Aut omated message] The = Monocytes #) system which generated this result tra nsmitted reference range : <=0.8. The reference r kenneth was not used to int erpret this result as normal/abnormal . [id number] 15:48:00 Test Item Value Reference Range Interpretation Comments Eosinophils # (test code 0.1 See_Comment [A utomated message] The = Eosinophils #) system whic h generated this result tra nsmitted reference range : <=0.5. The reference r kenneth was not used to int erpret this result as normal/abnormal . [facility]stWqwnwlvIQBCAPERTD5161-53-59 15:48:00 Test Item Value Reference Range Interpretation Comments Basophils # (test code 0.0 See_Comment [Aut omated message] The = Basophils #) system which generated this result tra nsmitted reference range : <=0.2. The reference r kenneth was not used to int erpret this result as normal/abnormal . [facility] AND [id number] 15:48:00 Test Item Value Reference Range Interpretation Comments UA Sq Epi (test code = UA Sq Epi) None Seen [facility] AND [id number] 15:48:00 Test Item Value Reference Range Interpretation Comments UA Leuk Est (test Negative (04/09/16 10:48 code = UA Leuk Est) AM) [facility] AND [id number] 15:48:00 Test Item Value Reference Range Interpretation Comments UA WBC (test code = 19 See_Comment [Automa regi message] The UA WBC) system which ge nerated this result transmit regi reference range : <=5. The reference range was not used to interpr et this result as nela l/abnormal. [facility] AND [id number] 15:48:00 Test Item Value Reference Range Interpretation Comments UA Nitrite (test code Negative (04/09/16 = UA Nitrite) 10:48 AM) [facility] AND [id number] 15:48:00 Test Item Value Reference Range Interpretation Comments UA Blood (test code = Small *ABN*(04/09/16 UA Blood) 10:48 AM) [facility] AND [id number] 15:48:00 Test Item Value Reference Range Interpretation Comments UA Protein (test code = UA Protein) 100 mg/dL [facility] AND [id number] 15:48:00 Test Item Value Reference Range Interpretation Comments UA pH (test code = UA pH) 6.0 5.0-8.0 [facility] AND [id number] 15:48:00 Test Item Value Reference Range Interpretation Comments UA pH (test code = UA pH) 6.0 5.0-8.0 [facility] AND [id number] 15:48:00 Test Item Value Reference Range Interpretation Comments UA Spec Grav (test code = UA Spec Grav) 1.024 [facility] AND [id number] 15:48:00 Test Item Value Reference Range Interpretation Comments UA CaOx Leslie (test code = UA CaOx Many /HPF Leslie) [facility] AND [id number] 15:48:00 Test Item Value Reference Range Interpretation Comments UA Mucus (test code = UA Mucus) Few /LPF [facility] AND [id number] 15:48:00 Test Item Value Reference Range Interpretation Comments UA RBC (test code = 3 See_Comment [Automa regi message] The UA RBC) system which ge nerated this result transmit regi reference range : <=2. The reference range was not used to interpr et this result as nela l/abnormal. [facility] [id number] 15:48:00 Test Item Value Reference Range Interpretation Comments UA Bili (test code = Negative *NA*(04/09/16 UA Bili) 10:48 AM) [facility] AND [id number] 15:48:00 Test Item Value Reference Range Interpretation Comments UA Glucose (test code = UA Negative mg/dL Glucose) [facility] AND [id number] 15:48:00 Test Item Value Reference Range Interpretation Comments UA Ketones (test code = UA Negative mg/dL Ketones) [facility] AND [id number] 15:48:00 Test Item Value Reference Range Interpretation Comments UA [place] Yeast (test code = UA Occasional /HPF [place] Yeast) [facility] AND [id number] 15:48:00 Test Item Value Reference Range Interpretation Comments UA Turbidity (test code Marked *ABN*(04/09/16 = UA Turbidity) 10:48 AM) [facility] AND [id number] 15:48:00 Test Item Value Reference Range Interpretation Comments UA Spec Grav (test code = UA Spec Grav) 1.024 [facility] AND [id number] 15:48:00 Test Item Value Reference Range Interpretation Comments UA Color (test code = Yellow *NA*(04/09/16 UA Color) 10:48 AM) [facility] AND [id number] 15:48:00 Test Item Value Reference Range Interpretation Comments UA Urobilinogen (test code = UA <=1.0 mg/dL 0.1-1.0 Urobilinogen) [facility] [id number] 15:48:00 Test Item Value Reference Range Interpretation Comments U Preg (test code = U Negative (04/09/16 10:48 Preg) AM) [facility] AND [id number] 15:48:00 Test Item Value Reference Range Interpretation Comments UA CaOx Leslie (test code = UA CaOx Many /HPF Leslie) [facility] AND [id number] 15:48:00 Test Item Value Reference Range Interpretation Comments UA Mucus (test code = UA Mucus) Few /LPF [facility] AND [id number] 15:48:00 Test Item Value Reference Range Interpretation Comments UA RBC (test code = 3 See_Comment [Automa regi message] The UA RBC) system which ge nerated this result transmit regi reference range : <=2. The reference range was not used to interpr et this result as nela l/abnormal. [facility] AND [id number] 15:48:00 Test Item Value Reference Range Interpretation Comments UA Bili (test code = Negative *NA*(04/09/16 UA Bili) 10:48 AM) [facility] AND [id number] 15:48:00 Test Item Value Reference Range Interpretation Comments UA Glucose (test code = UA Negative mg/dL Glucose) [facility] AND [id number] 15:48:00 Test Item Value Reference Range Interpretation Comments UA Ketones (test code = UA Negative mg/dL Ketones) [facility] AND [id number] 15:48:00 Test Item Value Reference Range Interpretation Comments UA [place] Yeast (test code = UA Occasional /HPF [place] Yeast) [facility] AND [id number] 15:48:00 Test Item Value Reference Range Interpretation Comments UA Turbidity (test code Marked *ABN*(04/09/16 = UA Turbidity) 10:48 AM) [facility] AND [id number] 15:48:00 Test Item Value Reference Range Interpretation Comments UA Color (test code = Yellow *NA*(04/09/16 UA Color) 10:48 AM) [facility] AND [id number] 15:48:00 Test Item Value Reference Range Interpretation Comments UA Urobilinogen (test code = UA <=1.0 mg/dL 0.1-1.0 Urobilinogen) [facility] [id number] 15:48:00 Test Item Value Reference Range Interpretation Comments U Preg (test code = U Negative (04/09/16 10:48 Preg) AM) [facility]2016-10-18 15:48:00 Test Item Value Reference Range Interpretation Comments eGFR (test code = eGFR) 108 [facility]2016-10-18 15:48:00 Test Item Value Reference Range Interpretation Comments Bili Total (test code = Bili Total) 0.3 0.2-1.3 [place] [id number] 15:48:00 Test Item Value Reference Range Interpretation Comments Alk Phos (test code = Alk Phos) 103 39-136 [facility]2016-10-18 15:48:00 Test Item Value Reference Range Interpretation Comments CO2 (test code = CO2) 22 24-32 [facility]2016-10-18 15:48:00 Test Item Value Reference Range Interpretation Comments Calcium Lvl (test code = Calcium Lvl) 8.9 8.5-10.5 [facility]2016-10-18 15:48:00 Test Item Value Reference Range Interpretation Comments AST (test code = AST) 51 See_Comment [Auto mated message] The system which ge nerated this result transmit regi reference range : <=37. The reference range was not used to interpr et this result as nela l/abnormal. [facility]2016-10-18 15:48:00 Test Item Value Reference Range Interpretation Comments ALT (test code = ALT) 84 See_Comment [Auto mated message] The system which ge nerated this result transmit regi reference range : <=65. The reference range was not used to interpr et this result as nela l/abnormal. [facility]2016-10-18 15:48:00 Test Item Value Reference Range Interpretation Comments Total Protein (test code = Total 9.4 6.4-8.4 Protein) [facility]2016-10-18 15:48:00 Test Item Value Reference Range Interpretation Comments Albumin Lvl (test code = Albumin Lvl) 4.0 3.5-5.0 [facility] [facility]18 15:48:00 Test Item Value Reference Range Interpretation Comments Potassium Lvl (test code = Potassium 3.1 3.5-5.1 Lvl) [facility]2016-10-18 15:48:00 Test Item Value Reference Range Interpretation Comments Chloride Lvl (test code = Chloride Lvl) 104 95-109 [facility]2016-10-18 15:48:00 Test Item Value Reference Range Interpretation Comments Glucose Lvl (test code = Glucose Lvl) 120 70-99 [facility]2016-10-18 15:48:00 Test Item Value Reference Range Interpretation Comments Creatinine Lvl (test code = Creatinine 0.75 0.50-1.40 Lvl) [facility]2016-10-18 15:48:00 Test Item Value Reference Range Interpretation Comments Sodium Lvl (test code = Sodium Lvl) 137 135-145 [facility]2016-10-18 15:48:00 Test Item Value Reference Range Interpretation Comments BUN (test code = BUN) 9 7-22 [facility]2016-10-18 15:48:00 Test Item Value Reference Range Interpretation Comments Globulin (test code = Globulin) 5.4 2.7-4.2 [facility]2016-10-18 15:48:00 Test Item Value Reference Range Interpretation Comments A/G Ratio (test code = A/G Ratio) 0.7 0.7-1.6 [facility]2016-10-18 15:48:00 Test Item Value Reference Range Interpretation Comments B/C Ratio (test code = B/C Ratio) 12 6-25 [facility]2016-10-18 15:48:00 Test Item Value Reference Range Interpretation Comments AGAP (test code = AGAP) 14.1 10.0-20.0 [facility]2016-10-18 15:48:00 Test Item Value Reference Range Interpretation Comments Lipase Lvl (test code = Lipase Lvl) 290 81-393 [id number] 15:48:00 Test Item Value Reference Range Interpretation Comments MPV (test code = MPV) 8.5 7.4-10.4 [facility]stHwprpabZDGMELTDUF5197-96-43 15:48:00 Test Item Value Reference Range Interpretation Comments Platelet (test code = Platelet) 339 133-450 [id number] 15:48:00 Test Item Value Reference Range Interpretation Comments RDW (test code = RDW) 12.3 11.5-14.5 [id number] 15:48:00 Test Item Value Reference Range Interpretation Comments MCH (test code = MCH) 29.1 pg 27.0-31.0 [facility]stBpuxgapLZNJSIKQSD3575-95-48 15:48:00 Test Item Value Reference Range Interpretation Comments MCV (test code = MCV) 87.2 80.0-98.0 [facility]stJlhsdgoHUDANKWOAP3704-39-94 15:48:00 Test Item Value Reference Range Interpretation Comments WBC (test code = WBC) 10.4 3.7-10.4 [facility]stWwygulsAEBSZQWXMC2543-66-69 15:48:00 Test Item Value Reference Range Interpretation Comments Hct (test code = Hct) 47.3 36.0-48.0 [facility]stCmtvqlyJQWSPNWIXY6077-19-57 15:48:00 Test Item Value Reference Range Interpretation Comments Hgb (test code = Hgb) 15.8 12.0-16.0 [facility]stAtinufuKQGTTZAZTY0827-82-11 15:48:00 Test Item Value Reference Range Interpretation Comments MCHC (test code = MCHC) 33.4 32.0-36.0 [facility]stTpmpewtLWPJJJKFKY2592-47-62 15:48:00 Test Item Value Reference Range Interpretation Comments RBC (test code = RBC) 5.42 4.20-5.40 [facility]stAbnnusdNOQJXOXWSF3087-72-54 15:48:00 Test Item Value Reference Range Interpretation Comments Lymphocytes (test code = Lymphocytes) 12.6 20.0-40.0 [facility]stWfmigvtPGLBTSLASP4059-56-45 15:48:00 Test Item Value Reference Range Interpretation Comments Segs (test code = Segs) 73.5 45.0-75.0 [facility]stAavkunuLCFYSHKTWN9887-25-43 15:48:00 Test Item Value Reference Range Interpretation Comments Monocytes (test code = Monocytes) 12.8 2.0-12.0 [facility]stQrobseaCILXWNMEOQ2425-58-52 15:48:00 Test Item Value Reference Range Interpretation Comments Eosinophils (test code = 0.9 See_Comment [A utomated message] The Eosinophils) system which ge nerated this result tra nsmitted reference range : <=4.0. The reference r kenneth was not used to int erpret this result as normal/abnormal . [facility]stUunnmbhVBVJRYBLMM3497-56-51 15:48:00 Test Item Value Reference Range Interpretation Comments Basophils (test code = 0.2 See_Comment [Aut omated message] The Basophils) system which ge nerated this result tra nsmitted reference range : <=1.0. The reference r kenneth was not used to int erpret this result as normal/abnormal . [facility]stIuxswdvVVQIACAUDW8494-98-13 15:48:00 Test Item Value Reference Range Interpretation Comments Lymphocytes # (test code = Lymphocytes 1.3 1.0-5.5 #) [facility]stUacfbjgMFVWNEQUUK3696-06-90 15:48:00 Test Item Value Reference Range Interpretation Comments Segs-Bands # (test code = Segs-Bands #) 7.7 1.5-8.1 [facility][id number] 15:48:00 Test Item Value Reference Range Interpretation Comments Monocytes # (test code 1.3 See_Comment [Aut omated message] The = Monocytes #) system which generated this result tra nsmitted reference range : <=0.8. The reference r kenneth was not used to int erpret this result as normal/abnormal . [facility]stCyelkzmPPGTJYABUW6601-56-94 15:48:00 Test Item Value Reference Range Interpretation Comments Eosinophils # (test code 0.1 See_Comment [A utomated message] The = Eosinophils #) system whic h generated this result tra nsmitted reference range : <=0.5. The reference r kenneth was not used to int erpret this result as normal/abnormal . [facility]stBgvpvldHWPDLGBQKZ5605-45-09 15:48:00 Test Item Value Reference Range Interpretation Comments Basophils # (test code 0.0 See_Comment [Aut omated message] The = Basophils #) system which generated this result tra nsmitted reference range : <=0.2. The reference r kenneth was not used to int erpret this result as normal/abnormal . [facility] AND [id number] 15:48:00 Test Item Value Reference Range Interpretation Comments UA Sq Epi (test code = UA Sq Epi) None Seen [facility] AND [id number] 15:48:00 Test Item Value Reference Range Interpretation Comments UA Leuk Est (test Negative (04/09/16 10:48 code = UA Leuk Est) AM) [facility] AND [id number] 15:48:00 Test Item Value Reference Range Interpretation Comments UA WBC (test code = 19 See_Comment [Automa regi message] The UA WBC) system which ge nerated this result transmit regi reference range : <=5. The reference range was not used to interpr et this result as nela l/abnormal. [facility] AND [id number] 15:48:00 Test Item Value Reference Range Interpretation Comments UA Nitrite (test code Negative (04/09/16 = UA Nitrite) 10:48 AM) [facility] AND [id number] 15:48:00 Test Item Value Reference Range Interpretation Comments UA Blood (test code = Small *ABN*(04/09/16 UA Blood) 10:48 AM) [facility] AND [id number] 15:48:00 Test Item Value Reference Range Interpretation Comments UA Protein (test code = UA Protein) 100 mg/dL [facility] AND [id number] 15:48:00 Test Item Value Reference Range Interpretation Comments UA pH (test code = UA pH) 6.0 5.0-8.0 [facility] AND [id number] 15:48:00 Test Item Value Reference Range Interpretation Comments UA Spec Grav (test code = UA Spec Grav) 1.024 [facility] AND [id number] 15:48:00 Test Item Value Reference Range Interpretation Comments UA CaOx Leslie (test code = UA CaOx Many /HPF Leslie) [facility] AND [id number] 15:48:00 Test Item Value Reference Range Interpretation Comments UA Mucus (test code = UA Mucus) Few /LPF [facility] AND [id number] 15:48:00 Test Item Value Reference Range Interpretation Comments UA RBC (test code = 3 See_Comment [Automa regi message] The UA RBC) system which ge nerated this result transmit regi reference range : <=2. The reference range was not used to interpr et this result as nela l/abnormal. [facility] AND [id number] 15:48:00 Test Item Value Reference Range Interpretation Comments UA Bili (test code = Negative *NA*(04/09/16 UA Bili) 10:48 AM) [facility] AND [id number] 15:48:00 Test Item Value Reference Range Interpretation Comments UA Glucose (test code = UA Negative mg/dL Glucose) [facility] AND [id number] 15:48:00 Test Item Value Reference Range Interpretation Comments UA Ketones (test code = UA Negative mg/dL Ketones) [facility] AND [id number] 15:48:00 Test Item Value Reference Range Interpretation Comments UA [place] Yeast (test code = UA Occasional /HPF [place] Yeast) [facility] AND [id number] 15:48:00 Test Item Value Reference Range Interpretation Comments UA Turbidity (test code Marked *ABN*(04/09/16 = UA Turbidity) 10:48 AM) [facility] AND [id number] 15:48:00 Test Item Value Reference Range Interpretation Comments UA Color (test code = Yellow *NA*(04/09/16 UA Color) 10:48 AM) [facility] AND [id number] 15:48:00 Test Item Value Reference Range Interpretation Comments UA Urobilinogen (test code = UA <=1.0 mg/dL 0.1-1.0 Urobilinogen) [facility] [id number] 15:48:00 Test Item Value Reference Range Interpretation Comments U Preg (test code = U Negative (04/09/16 10:48 Preg) AM) [facility] [id number] 03:32:00 Test Item Value Reference Range Interpretation Comments CK MB Index (test no gt See_Comment [Automate d message] The code = CK MB Index) system w [facility] generated this result transmit regi reference range : <=2.5. The reference range was not used to interpr et this result as nela l/abnormal. [facility] [id number] 03:32:00 Test Item Value Reference Range Interpretation Comments CK MB (test code = CK MB) no gt 0.5-3.6 [facility]annC[facility] [id number] 03:32:00 Test Item Value Reference Range Interpretation Comments Total CK (test code = Total CK) 82 12-191 [facility] [id number] 03:32:00 Test Item Value Reference Range Interpretation Comments Troponin-I (test code no gt See_Comment [Auto mated message] The = Troponin-I) system which g enerated this result transmit regi reference range : <=0.40. The reference r kenneth was not used to interpr et this result as nela l/abnormal. [place] 672356-02-20 03:32:00 Test Item Value Reference Range Interpretation Comments eGFR (test code = eGFR) 123 [facility]2016-02-20 03:32:00 Test Item Value Reference Range Interpretation Comments A/G Ratio (test code = A/G Ratio) 0.8 0.7-1.6 [place] 672356-02-20 03:32:00 Test Item Value Reference Range Interpretation Comments Globulin (test code = Globulin) 4.6 2.0-4.0 [place] 672356-02-20 03:32:00 Test Item Value Reference Range Interpretation Comments B/C Ratio (test code = B/C Ratio) 23 6-25 [place] 672356-02-20 03:32:00 Test Item Value Reference Range Interpretation Comments AGAP (test code = AGAP) 11.8 10.0-20.0 [place] 672356-02-20 03:32:00 Test Item Value Reference Range Interpretation Comments Bili Total (test code = Bili Total) 0.4 0.2-1.3 [facility]2016-02-20 03:32:00 Test Item Value Reference Range Interpretation Comments Alk Phos (test code = Alk Phos) 110 39-136 [facility]2016-02-20 03:32:00 Test Item Value Reference Range Interpretation Comments AST (test code = AST) 10 See_Comment [Auto mated message] The system which ge nerated this result transmit regi reference range : <=37. The reference range was not used to interpr et this result as nela l/abnormal. [place] 672356-02-20 03:32:00 Test Item Value Reference Range Interpretation Comments ALT (test code = ALT) 25 See_Comment [Auto mated message] The system which ge nerated this result transmit regi reference range : <=65. The reference range was not used to interpr et this result as nela l/abnormal. [place] 672356-02-20 03:32:00 Test Item Value Reference Range Interpretation Comments Albumin Lvl (test code = Albumin Lvl) 3.7 3.5-5.0 [facility]2016-02-20 03:32:00 Test Item Value Reference Range Interpretation Comments Total Protein (test code = Total 8.3 6.4-8.4 Protein) [facility]2016-02-20 03:32:00 Test Item Value Reference Range Interpretation Comments Calcium Lvl (test code = Calcium Lvl) 8.2 8.5-10.5 [facility]2016-02-20 03:32:00 Test Item Value Reference Range Interpretation Comments CO2 (test code = CO2) 25 24-32 [facility]2016-02-20 03:32:00 Test Item Value Reference Range Interpretation Comments Chloride Lvl (test code = Chloride Lvl) 105 95-109 [facility]2016-02-20 03:32:00 Test Item Value Reference Range Interpretation Comments Potassium Lvl (test code = Potassium 3.8 3.5-5.1 Lvl) [facility]2016-02-20 03:32:00 Test Item Value Reference Range Interpretation Comments Glucose Lvl (test code = Glucose Lvl) 88 70-99 [facility]2016-02-20 03:32:00 Test Item Value Reference Range Interpretation Comments Sodium Lvl (test code = Sodium Lvl) 138 135-145 [facility]2016-02-20 03:32:00 Test Item Value Reference Range Interpretation Comments Creatinine Lvl (test code = Creatinine 0.62 0.50-1.40 Lvl) [facility]2016-02-20 03:32:00 Test Item Value Reference Range Interpretation Comments BUN (test code = BUN) 14 7-22 [facility]2016-02-20 03:32:00 Test Item Value Reference Range Interpretation Comments Amylase Lvl (test code = Amylase Lvl) 36 25-115 [facility]2016-02-20 03:32:00 Test Item Value Reference Range Interpretation Comments Lipase Lvl (test code = Lipase Lvl) 126 73-393 [facility]UjfjsfdXYMVEDZKIRLVQ9426-71-40 03:32:00 Test Item Value Reference Range Interpretation Comments S Preg (test code = S Negative *NA*(08/11/15 Preg) 9:32 PM) [id number] 03:32:00 Test Item Value Reference Range Interpretation Comments Basophils # (test code 0.1 See_Comment [Aut omated message] The = Basophils #) system which generated this result tra nsmitted reference range : <=0.2. The reference r kenneth was not used to int erpret this result as normal/abnormal . [facility]stQbdyfsaYNXGEQHAFE6999-40-14 03:32:00 Test Item Value Reference Range Interpretation Comments Basophils (test code = 0.4 See_Comment [Aut omated message] The Basophils) system which ge nerated this result tra nsmitted reference range : <=1.0. The reference r kenneth was not used to int erpret this result as normal/abnormal . [id number] 03:32:00 Test Item Value Reference Range Interpretation Comments Segs-Bands # (test code = Segs-Bands #) 9.9 1.5-8.1 [id number] 03:32:00 Test Item Value Reference Range Interpretation Comments Lymphocytes # (test code = Lymphocytes 2.7 1.0-5.5 #) [id number] 03:32:00 Test Item Value Reference Range Interpretation Comments Monocytes # (test code 1.0 See_Comment [Aut omated message] The = Monocytes #) system which generated this result tra nsmitted reference range : <=0.8. The reference r kenneth was not used to int erpret this result as normal/abnormal . [id number] 03:32:00 Test Item Value Reference Range Interpretation Comments Eosinophils # (test code 0.2 See_Comment [A utomated message] The = Eosinophils #) system whic h generated this result tra nsmitted reference range : <=0.5. The reference r kenneth was not used to int erpret this result as normal/abnormal . [facility]stNjrzevwVWUKQAXTSC6637-26-51 03:32:00 Test Item Value Reference Range Interpretation Comments Segs (test code = Segs) 71.8 45.0-75.0 [id number] 03:32:00 Test Item Value Reference Range Interpretation Comments Lymphocytes (test code = Lymphocytes) 19.4 20.0-40.0 [id number] 03:32:00 Test Item Value Reference Range Interpretation Comments Monocytes (test code = Monocytes) 7.0 2.0-12.0 [facility]stDuhjwsqSJUCWKZWCE8487-17-91 03:32:00 Test Item Value Reference Range Interpretation Comments Eosinophils (test code = 1.4 See_Comment [A utomated message] The Eosinophils) system which ge nerated this result tra nsmitted reference range : <=4.0. The reference r kenneth was not used to int erpret this result as normal/abnormal . [facility]stFuwlyirCMJPSGVPZF1513-46-19 03:32:00 Test Item Value Reference Range Interpretation Comments Hct (test code = Hct) 42.3 36.0-48.0 [id number] 03:32:00 Test Item Value Reference Range Interpretation Comments WBC (test code = WBC) 13.8 3.7-10.4 [facility]stNkcogssSKAIWARMEX2802-42-89 03:32:00 Test Item Value Reference Range Interpretation Comments MCV (test code = MCV) 89.6 80.0-98.0 [facility]stAslajowYLPUJFNLLN0224-98-24 03:32:00 Test Item Value Reference Range Interpretation Comments MCHC (test code = MCHC) 31.4 32.0-36.0 [facility]stNoizigiEPWHVRKWYF0173-00-94 03:32:00 Test Item Value Reference Range Interpretation Comments RDW (test code = RDW) 13.2 11.5-14.5 [id number] 03:32:00 Test Item Value Reference Range Interpretation Comments Hgb (test code = Hgb) 13.3 12.0-16.0 [id number] 03:32:00 Test Item Value Reference Range Interpretation Comments RBC (test code = RBC) 4.73 4.20-5.40 [facility]stFgayypaLVECRTTUVF8521-78-07 03:32:00 Test Item Value Reference Range Interpretation Comments MCH (test code = MCH) 28.2 pg 27.0-31.0 [facility]stAbgrnajBAUAYHZEKE6225-56-37 03:32:00 Test Item Value Reference Range Interpretation Comments MPV (test code = MPV) 8.7 7.4-10.4 [id number] 03:32:00 Test Item Value Reference Range Interpretation Comments Platelet (test code = Platelet) 303 133-450 [facility] AND [id number] 03:32:00 Test Item Value Reference Range Interpretation Comments UA Leuk Est (test code Small *ABN*(08/11/15 = UA Leuk Est) 9:32 PM) [facility] [id number] 03:32:00 Test Item Value Reference Range Interpretation Comments UA Nitrite (test code Negative (08/11/15 9:32 = UA Nitrite) PM) [facility] AND [id number] 03:32:00 Test Item Value Reference Range Interpretation Comments UA WBC (test code = UA WBC) 3-5 /HPF [facility] AND [id number] 03:32:00 Test Item Value Reference Range Interpretation Comments UA Sq Epi (test code = UA Sq Occasional /LPF Epi) [facility] AND [id number] 03:32:00 Test Item Value Reference Range Interpretation Comments Micro? (test code = Performed (08/11/15 9:32 Micro?) PM) [facility] AND [id number] 03:32:00 Test Item Value Reference Range Interpretation Comments UA Bacteria (test code = UA Occasional /HPF Bacteria) [facility] AND [id number] 03:32:00 Test Item Value Reference Range Interpretation Comments UA RBC (test code = 0-2 /HPF See_Comment [Automa regi message] The UA RBC) system which ge nerated this result tra nsmitted reference range : <=2. The reference range was not used to interpr et this result as nela l/abnormal. [facility] AND [id number] 03:32:00 Test Item Value Reference Range Interpretation Comments UA Protein (test code Negative (08/11/15 9:32 = UA Protein) PM) [facility] AND [id number] 03:32:00 Test Item Value Reference Range Interpretation Comments UA pH (test code = UA pH) 6.5 1 5.0-8.0 [facility] AND [id number] 03:32:00 Test Item Value Reference Range Interpretation Comments UA Spec Grav (test code = UA Spec 1.010 1 Grav) [facility] AND [id number] 03:32:00 Test Item Value Reference Range Interpretation Comments UA Turbidity (test code = Clear (08/11/15 9:32 UA Turbidity) PM) [facility] [id number] 03:32:00 Test Item Value Reference Range Interpretation Comments UA Bili (test code = Negative *NA*(08/11/15 UA Bili) 9:32 PM) [facility] [id number] 03:32:00 Test Item Value Reference Range Interpretation Comments UA Ketones (test code Negative *NA*(08/11/15 = UA Ketones) 9:32 PM) [facility] [id number] 03:32:00 Test Item Value Reference Range Interpretation Comments UA Color (test code = Yellow *NA*(08/11/15 UA Color) 9:32 PM) [facility] [id number] 03:32:00 Test Item Value Reference Range Interpretation Comments UA Glucose (test code Negative (08/11/15 9:32 = UA Glucose) PM) [facility]ann[facility] [id number] 03:32:00 Test Item Value Reference Range Interpretation Comments UA Urobilinogen (test code = UA 0.2 0.1-1.0 Urobilinogen) [facility]ann[facility] [id number] 03:32:00 Test Item Value Reference Range Interpretation Comments UA Blood (test code = Trace *ABN*(08/11/15 UA Blood) 9:32 PM) [facility] [id number] 03:32:00 Test Item Value Reference Range Interpretation Comments CK MB Index (test no gt See_Comment [Automate d message] The code = CK MB Index) system w [facility] generated this result transmit regi reference range : <=2.5. The reference range was not used to interpr et this result as nela l/abnormal. [facility] [id number] 03:32:00 Test Item Value Reference Range Interpretation Comments CK MB (test code = CK MB) no gt 0.5-3.6 [facility] [id number] 03:32:00 Test Item Value Reference Range Interpretation Comments Total CK (test code = Total CK) 82 12-191 [facility]annC[facility]AC [id number] 03:32:00 Test Item Value Reference Range Interpretation Comments Troponin-I (test code no gt See_Comment [Auto mated message] The = Troponin-I) system which g enerated this result transmit regi reference range : <=0.40. The reference r kenneth was not used to interpr et this result as nela l/abnormal. [facility] [id number] 03:32:00 Test Item Value Reference Range Interpretation Comments eGFR (test code = eGFR) 123 [facility] [id number] 03:32:00 Test Item Value Reference Range Interpretation Comments A/G Ratio (test code = A/G Ratio) 0.8 0.7-1.6 [facility] [place]2016-02-20 03:32:00 Test Item Value Reference Range Interpretation Comments Globulin (test code = Globulin) 4.6 2.0-4.0 [facility] [employer] [id number] 03:32:00 Test Item Value Reference Range Interpretation Comments B/C Ratio (test code = B/C Ratio) 23 6-25 [facility] [id number] 03:32:00 Test Item Value Reference Range Interpretation Comments AGAP (test code = AGAP) 11.8 10.0-20.0 [facility] [id number] 03:32:00 Test Item Value Reference Range Interpretation Comments Bili Total (test code = Bili Total) 0.4 0.2-1.3 [facility] [place]2016-02-20 03:32:00 Test Item Value Reference Range Interpretation Comments Alk Phos (test code = Alk Phos) 110 39-136 [facility] [id number] 03:32:00 Test Item Value Reference Range Interpretation Comments AST (test code = AST) 10 See_Comment [Auto mated message] The system which ge nerated this result transmit regi reference range : <=37. The reference range was not used to interpr et this result as nela l/abnormal. [facility] [id number] 03:32:00 Test Item Value Reference Range Interpretation Comments ALT (test code = ALT) 25 See_Comment [Auto mated message] The system which ge nerated this result transmit regi reference range : <=65. The reference range was not used to interpr et this result as nela l/abnormal. [facility] [place]2016-02-20 03:32:00 Test Item Value Reference Range Interpretation Comments Albumin Lvl (test code = Albumin Lvl) 3.7 3.5-5.0 [facility] [place]2016-02-20 03:32:00 Test Item Value Reference Range Interpretation Comments Total Protein (test code = Total 8.3 6.4-8.4 Protein) [facility] [place]2016-02-20 03:32:00 Test Item Value Reference Range Interpretation Comments Calcium Lvl (test code = Calcium Lvl) 8.2 8.5-10.5 [facility] [place]2016-02-20 03:32:00 Test Item Value Reference Range Interpretation Comments CO2 (test code = CO2) 25 24-32 [facility] [place]2016-02-20 03:32:00 Test Item Value Reference Range Interpretation Comments Chloride Lvl (test code = Chloride Lvl) 105 95-109 [facility] [place]2016-02-20 03:32:00 Test Item Value Reference Range Interpretation Comments Potassium Lvl (test code = Potassium 3.8 3.5-5.1 Lvl) [facility] [place]2016-02-20 03:32:00 Test Item Value Reference Range Interpretation Comments Glucose Lvl (test code = Glucose Lvl) 88 70-99 [facility] [place]2016-02-20 03:32:00 Test Item Value Reference Range Interpretation Comments Sodium Lvl (test code = Sodium Lvl) 138 135-145 [facility] [place]2016-02-20 03:32:00 Test Item Value Reference Range Interpretation Comments Creatinine Lvl (test code = Creatinine 0.62 0.50-1.40 Lvl) [facility] [place]2016-02-20 03:32:00 Test Item Value Reference Range Interpretation Comments BUN (test code = BUN) 14 7-22 [facility] [place]2016-02-20 03:32:00 Test Item Value Reference Range Interpretation Comments Amylase Lvl (test code = Amylase Lvl) 36 25-115 [facility] [place]2016-02-20 03:32:00 Test Item Value Reference Range Interpretation Comments Lipase Lvl (test code = Lipase Lvl) 126 73-393 [facility]WdnqtbvXCBBGINWIKPQM6470-32-25 03:32:00 Test Item Value Reference Range Interpretation Comments S Preg (test code = S Negative *NA*(08/11/15 Preg) 9:32 PM) [id number] 03:32:00 Test Item Value Reference Range Interpretation Comments Basophils # (test code 0.1 See_Comment [Aut omated message] The = Basophils #) system which generated this result tra nsmitted reference range : <=0.2. The reference r kenneth was not used to int erpret this result as normal/abnormal . [id number] 03:32:00 Test Item Value Reference Range Interpretation Comments Basophils (test code = 0.4 See_Comment [Aut omated message] The Basophils) system which ge nerated this result tra nsmitted reference range : <=1.0. The reference r kenneth was not used to int erpret this result as normal/abnormal . [facility]stLjifjgzILIZEUZWLO0476-93-60 03:32:00 Test Item Value Reference Range Interpretation Comments Segs-Bands # (test code = Segs-Bands #) 9.9 1.5-8.1 [facility]stMeartsfOTBCNBPYIR7640-93-33 03:32:00 Test Item Value Reference Range Interpretation Comments Lymphocytes # (test code = Lymphocytes 2.7 1.0-5.5 #) [facility]stGfiipkfTUYQMSSSTQ9997-44-15 03:32:00 Test Item Value Reference Range Interpretation Comments Monocytes # (test code 1.0 See_Comment [Aut omated message] The = Monocytes #) system which generated this result tra nsmitted reference range : <=0.8. The reference r kenneth was not used to int erpret this result as normal/abnormal . [facility]stMcmmjvuLHQJLONGJX3550-29-97 03:32:00 Test Item Value Reference Range Interpretation Comments Eosinophils # (test code 0.2 See_Comment [A utomated message] The = Eosinophils #) system whic h generated this result tra nsmitted reference range : <=0.5. The reference r kenneth was not used to int erpret this result as normal/abnormal . [facility]stPrkzhihBIFJLSDEJJ6499-87-15 03:32:00 Test Item Value Reference Range Interpretation Comments Segs (test code = Segs) 71.8 45.0-75.0 [place] [id number] 03:32:00 Test Item Value Reference Range Interpretation Comments Lymphocytes (test code = Lymphocytes) 19.4 20.0-40.0 [facility]stBlzwrkuSNORVLRRBY2509-57-92 03:32:00 Test Item Value Reference Range Interpretation Comments Monocytes (test code = Monocytes) 7.0 2.0-12.0 [facility]stTffdqapDFLFWVOCVU8438-95-27 03:32:00 Test Item Value Reference Range Interpretation Comments Eosinophils (test code = 1.4 See_Comment [A utomated message] The Eosinophils) system which ge nerated this result tra nsmitted reference range : <=4.0. The reference r kenneth was not used to int erpret this result as normal/abnormal . [facility]stOrgofgkSHNXIPDQOZ7575-29-09 03:32:00 Test Item Value Reference Range Interpretation Comments Hct (test code = Hct) 42.3 36.0-48.0 [facility]stNgqnwxgGBKNUFXQHZ5238-00-36 03:32:00 Test Item Value Reference Range Interpretation Comments WBC (test code = WBC) 13.8 3.7-10.4 [facility]stMyhldrrQQYAXXJKIC8236-12-98 03:32:00 Test Item Value Reference Range Interpretation Comments MCV (test code = MCV) 89.6 80.0-98.0 [facility]stAdambbhOTFMSVIGJA3896-03-50 03:32:00 Test Item Value Reference Range Interpretation Comments MCHC (test code = MCHC) 31.4 32.0-36.0 [facility]crestDnkydirKSZRJGIYNR2229-23-50 03:32:00 Test Item Value Reference Range Interpretation Comments RDW (test code = RDW) 13.2 11.5-14.5 [facility]stAueikhbQKCKPTRQIB4024-53-68 03:32:00 Test Item Value Reference Range Interpretation Comments Hgb (test code = Hgb) 13.3 12.0-16.0 [facility]stGjsxdlzSMKAFZSLKX5237-06-82 03:32:00 Test Item Value Reference Range Interpretation Comments RBC (test code = RBC) 4.73 4.20-5.40 [facility]crestZscidwrEOESNTRWZZ6520-80-07 03:32:00 Test Item Value Reference Range Interpretation Comments MCH (test code = MCH) 28.2 pg 27.0-31.0 [facility]stKcxdellUMKZAJOQQF4206-67-30 03:32:00 Test Item Value Reference Range Interpretation Comments MPV (test code = MPV) 8.7 7.4-10.4 [facility]mkioglCELDYBVQOA9094-72-49 03:32:00 Test Item Value Reference Range Interpretation Comments Platelet (test code = Platelet) 303 133-450 [facility] [id number] 03:32:00 Test Item Value Reference Range Interpretation Comments UA Leuk Est (test code Small *ABN*(08/11/15 = UA Leuk Est) 9:32 PM) [facility] [id number] 03:32:00 Test Item Value Reference Range Interpretation Comments UA Nitrite (test code Negative (08/11/15 9:32 = UA Nitrite) PM) [facility] [id number] 03:32:00 Test Item Value Reference Range Interpretation Comments UA WBC (test code = UA WBC) 3-5 /HPF [facility] [id number] 03:32:00 Test Item Value Reference Range Interpretation Comments UA Sq Epi (test code = UA Sq Occasional /LPF Epi) [facility] [id number] 03:32:00 Test Item Value Reference Range Interpretation Comments Micro? (test code = Performed (08/11/15 9:32 Micro?) PM) [facility] [id number] 03:32:00 Test Item Value Reference Range Interpretation Comments UA Bacteria (test code = UA Occasional /HPF Bacteria) [facility] [id number] 03:32:00 Test Item Value Reference Range Interpretation Comments UA RBC (test code = 0-2 /HPF See_Comment [Automa regi message] The UA RBC) system which ge nerated this result tra nsmitted reference range : <=2. The reference range was not used to interpr et this result as nela l/abnormal. [facility] [id number] 03:32:00 Test Item Value Reference Range Interpretation Comments UA Protein (test code Negative (08/11/15 9:32 = UA Protein) PM) [facility] [id number] 03:32:00 Test Item Value Reference Range Interpretation Comments UA pH (test code = UA pH) 6.5 1 5.0-8.0 [facility] [id number] 03:32:00 Test Item Value Reference Range Interpretation Comments UA Spec Grav (test code = UA Spec 1.010 1 Grav) [facility] [id number] 03:32:00 Test Item Value Reference Range Interpretation Comments UA Turbidity (test code = Clear (08/11/15 9:32 UA Turbidity) PM) [facility] [id number] 03:32:00 Test Item Value Reference Range Interpretation Comments UA Bili (test code = Negative *NA*(08/11/15 UA Bili) 9:32 PM) [facility] [id number] 03:32:00 Test Item Value Reference Range Interpretation Comments UA Ketones (test code Negative *NA*(08/11/15 = UA Ketones) 9:32 PM) [facility] [id number] 03:32:00 Test Item Value Reference Range Interpretation Comments UA Color (test code = Yellow *NA*(08/11/15 UA Color) 9:32 PM) [facility] [id number] 03:32:00 Test Item Value Reference Range Interpretation Comments UA Glucose (test code Negative (08/11/15 9:32 = UA Glucose) PM) [facility] [id number] 03:32:00 Test Item Value Reference Range Interpretation Comments UA Urobilinogen (test code = UA 0.2 0.1-1.0 Urobilinogen) [facility] [id number] 03:32:00 Test Item Value Reference Range Interpretation Comments UA Blood (test code = Trace *ABN*(08/11/15 UA Blood) 9:32 PM) [facility]annCARD[facility]AC [id number] 03:32:00 Test Item Value Reference Range Interpretation Comments CK MB Index (test no gt See_Comment [Automate d message] The code = CK MB Index) system w [facility] generated this result transmit regi reference range : <=2.5. The reference range was not used to interpr et this result as nela l/abnormal. [facility]annC[facility] [id number] 03:32:00 Test Item Value Reference Range Interpretation Comments CK MB (test code = CK MB) no gt 0.5-3.6 [facility]annC[facility] [id number] 03:32:00 Test Item Value Reference Range Interpretation Comments Total CK (test code = Total CK) 82 12-191 [facility] [id number] 03:32:00 Test Item Value Reference Range Interpretation Comments Troponin-I (test code no gt See_Comment [Auto mated message] The = Troponin-I) system which g enerated this result transmit regi reference range : <=0.40. The reference r kenneth was not used to interpr et this result as nela l/abnormal. [facility] [id number] 03:32:00 Test Item Value Reference Range Interpretation Comments eGFR (test code = eGFR) 123 [facility] [id number] 03:32:00 Test Item Value Reference Range Interpretation Comments A/G Ratio (test code = A/G Ratio) 0.8 0.7-1.6 [facility] [id number] 03:32:00 Test Item Value Reference Range Interpretation Comments Globulin (test code = Globulin) 4.6 2.0-4.0 [facility] [id number] 03:32:00 Test Item Value Reference Range Interpretation Comments B/C Ratio (test code = B/C Ratio) 23 6-25 [facility] [id number] 03:32:00 Test Item Value Reference Range Interpretation Comments AGAP (test code = AGAP) 11.8 10.0-20.0 [facility] [id number] 03:32:00 Test Item Value Reference Range Interpretation Comments Bili Total (test code = Bili Total) 0.4 0.2-1.3 [facility] [id number] 03:32:00 Test Item Value Reference Range Interpretation Comments Alk Phos (test code = Alk Phos) 110 39-136 [facility] [id number] 03:32:00 Test Item Value Reference Range Interpretation Comments AST (test code = AST) 10 See_Comment [Auto mated message] The system which ge nerated this result transmit regi reference range : <=37. The reference range was not used to interpr et this result as nela l/abnormal. [facility] [id number] 03:32:00 Test Item Value Reference Range Interpretation Comments ALT (test code = ALT) 25 See_Comment [Auto mated message] The system which ge nerated this result transmit regi reference range : <=65. The reference range was not used to interpr et this result as nela l/abnormal. [facility] [place]2016-02-20 03:32:00 Test Item Value Reference Range Interpretation Comments Albumin Lvl (test code = Albumin Lvl) 3.7 3.5-5.0 [facility] [place]2016-02-20 03:32:00 Test Item Value Reference Range Interpretation Comments Total Protein (test code = Total 8.3 6.4-8.4 Protein) [facility] [place]2016-02-20 03:32:00 Test Item Value Reference Range Interpretation Comments Calcium Lvl (test code = Calcium Lvl) 8.2 8.5-10.5 [facility] [place]2016-02-20 03:32:00 Test Item Value Reference Range Interpretation Comments CO2 (test code = CO2) 25 24-32 [facility] [place]2016-02-20 03:32:00 Test Item Value Reference Range Interpretation Comments Chloride Lvl (test code = Chloride Lvl) 105 95-109 [facility] [place]2016-02-20 03:32:00 Test Item Value Reference Range Interpretation Comments Potassium Lvl (test code = Potassium 3.8 3.5-5.1 Lvl) [facility] [place]2016-02-20 03:32:00 Test Item Value Reference Range Interpretation Comments Glucose Lvl (test code = Glucose Lvl) 88 70-99 [facility] [place]2016-02-20 03:32:00 Test Item Value Reference Range Interpretation Comments Sodium Lvl (test code = Sodium Lvl) 138 135-145 [facility] [place]2016-02-20 03:32:00 Test Item Value Reference Range Interpretation Comments Creatinine Lvl (test code = Creatinine 0.62 0.50-1.40 Lvl) [facility] [place]2016-02-20 03:32:00 Test Item Value Reference Range Interpretation Comments BUN (test code = BUN) 14 7-22 [facility] [place]2016-02-20 03:32:00 Test Item Value Reference Range Interpretation Comments Amylase Lvl (test code = Amylase Lvl) 36 25-115 [facility] [place]2016-02-20 03:32:00 Test Item Value Reference Range Interpretation Comments Lipase Lvl (test code = Lipase Lvl) 126 55-393 [place] [address]2016-02-20 03:32:00 Test Item Value Reference Range Interpretation Comments S Preg (test code = S Negative *NA*(08/11/15 Preg) 9:32 PM) [id number] 03:32:00 Test Item Value Reference Range Interpretation Comments Basophils # (test code 0.1 See_Comment [Aut omated message] The = Basophils #) system which generated this result tra nsmitted reference range : <=0.2. The reference r kenneth was not used to int erpret this result as normal/abnormal . [id number] 03:32:00 Test Item Value Reference Range Interpretation Comments Basophils (test code = 0.4 See_Comment [Aut omated message] The Basophils) system which ge nerated this result tra nsmitted reference range : <=1.0. The reference r kenneth was not used to int erpret this result as normal/abnormal . [facility]stVgljuwlFCEVOOXBBQ4041-21-18 03:32:00 Test Item Value Reference Range Interpretation Comments Segs-Bands # (test code = Segs-Bands #) 9.9 1.5-8.1 [id number] 03:32:00 Test Item Value Reference Range Interpretation Comments Lymphocytes # (test code = Lymphocytes 2.7 1.0-5.5 #) [id number] 03:32:00 Test Item Value Reference Range Interpretation Comments Monocytes # (test code 1.0 See_Comment [Aut omated message] The = Monocytes #) system which generated this result tra nsmitted reference range : <=0.8. The reference r kenneth was not used to int erpret this result as normal/abnormal . [id number] 03:32:00 Test Item Value Reference Range Interpretation Comments Eosinophils # (test code 0.2 See_Comment [A utomated message] The = Eosinophils #) system whic h generated this result tra nsmitted reference range : <=0.5. The reference r kenneth was not used to int erpret this result as normal/abnormal . [id number] 03:32:00 Test Item Value Reference Range Interpretation Comments Segs (test code = Segs) 71.8 45.0-75.0 [facility]stTdlpyedQBAWSYVGXR5674-18-08 03:32:00 Test Item Value Reference Range Interpretation Comments Lymphocytes (test code = Lymphocytes) 19.4 20.0-40.0 [id number] 03:32:00 Test Item Value Reference Range Interpretation Comments Monocytes (test code = Monocytes) 7.0 2.0-12.0 [id number] 03:32:00 Test Item Value Reference Range Interpretation Comments Eosinophils (test code = 1.4 See_Comment [A utomated message] The Eosinophils) system which ge nerated this result tra nsmitted reference range : <=4.0. The reference r kenneth was not used to int erpret this result as normal/abnormal . [id number] 03:32:00 Test Item Value Reference Range Interpretation Comments Hct (test code = Hct) 42.3 36.0-48.0 [id number] 03:32:00 Test Item Value Reference Range Interpretation Comments WBC (test code = WBC) 13.8 3.7-10.4 [id number] 03:32:00 Test Item Value Reference Range Interpretation Comments MCV (test code = MCV) 89.6 80.0-98.0 [id number] 03:32:00 Test Item Value Reference Range Interpretation Comments MCHC (test code = MCHC) 31.4 32.0-36.0 [id number] 03:32:00 Test Item Value Reference Range Interpretation Comments RDW (test code = RDW) 13.2 11.5-14.5 [id number] 03:32:00 Test Item Value Reference Range Interpretation Comments Hgb (test code = Hgb) 13.3 12.0-16.0 [id number] 03:32:00 Test Item Value Reference Range Interpretation Comments RBC (test code = RBC) 4.73 4.20-5.40 [id number] 03:32:00 Test Item Value Reference Range Interpretation Comments MCH (test code = MCH) 28.2 pg 27.0-31.0 [id number] 03:32:00 Test Item Value Reference Range Interpretation Comments MPV (test code = MPV) 8.7 7.4-10.4 [id number] 03:32:00 Test Item Value Reference Range Interpretation Comments Platelet (test code = Platelet) 303 133-450 [facility] AND [id number] 03:32:00 Test Item Value Reference Range Interpretation Comments UA Leuk Est (test code Small *ABN*(08/11/15 = UA Leuk Est) 9:32 PM) [facility] AND [id number] 03:32:00 Test Item Value Reference Range Interpretation Comments UA Nitrite (test code Negative (08/11/15 9:32 = UA Nitrite) PM) [facility] AND [id number] 03:32:00 Test Item Value Reference Range Interpretation Comments UA WBC (test code = UA WBC) 3-5 /HPF [facility] AND [id number] 03:32:00 Test Item Value Reference Range Interpretation Comments UA Sq Epi (test code = UA Sq Occasional /LPF Epi) [facility] AND [id number] 03:32:00 Test Item Value Reference Range Interpretation Comments Micro? (test code = Performed (08/11/15 9:32 Micro?) PM) [facility] AND [id number] 03:32:00 Test Item Value Reference Range Interpretation Comments UA Bacteria (test code = UA Occasional /HPF Bacteria) [facility] AND [id number] 03:32:00 Test Item Value Reference Range Interpretation Comments UA RBC (test code = 0-2 /HPF See_Comment [Automa regi message] The UA RBC) system which ge nerated this result tra nsmitted reference range : <=2. The reference range was not used to interpr et this result as nela l/abnormal. [facility] AND [id number] 03:32:00 Test Item Value Reference Range Interpretation Comments UA Protein (test code Negative (08/11/15 9:32 = UA Protein) PM) [facility] AND [id number] 03:32:00 Test Item Value Reference Range Interpretation Comments UA pH (test code = UA pH) 6.5 1 5.0-8.0 [facility] AND [id number] 03:32:00 Test Item Value Reference Range Interpretation Comments UA Spec Grav (test code = UA Spec 1.010 1 Grav) [facility] AND [id number] 03:32:00 Test Item Value Reference Range Interpretation Comments UA Turbidity (test code = Clear (08/11/15 9:32 UA Turbidity) PM) [facility] AND [id number] 03:32:00 Test Item Value Reference Range Interpretation Comments UA Bili (test code = Negative *NA*(08/11/15 UA Bili) 9:32 PM) [facility] AND [id number] 03:32:00 Test Item Value Reference Range Interpretation Comments UA Ketones (test code Negative *NA*(08/11/15 = UA Ketones) 9:32 PM) [facility] AND [id number] 03:32:00 Test Item Value Reference Range Interpretation Comments UA Color (test code = Yellow *NA*(08/11/15 UA Color) 9:32 PM) [facility] AND [id number] 03:32:00 Test Item Value Reference Range Interpretation Comments UA Glucose (test code Negative (08/11/15 9:32 = UA Glucose) PM) [facility] AND [id number] 03:32:00 Test Item Value Reference Range Interpretation Comments UA Urobilinogen (test code = UA 0.2 0.1-1.0 Urobilinogen) [facility] AND [id number] 03:32:00 Test Item Value Reference Range Interpretation Comments UA Blood (test code = Trace *ABN*(08/11/15 UA Blood) 9:32 PM) [facility] [id number] 03:32:00 Test Item Value Reference Range Interpretation Comments CK MB Index (test no gt See_Comment [Automate d message] The code = CK MB Index) system w [facility] generated this result transmit regi reference range : <=2.5. The reference range was not used to interpr et this result as nela l/abnormal. [facility] [id number] 03:32:00 Test Item Value Reference Range Interpretation Comments CK MB (test code = CK MB) no gt 0.5-3.6 [facility] [employer]CARDIAC [id number] 03:32:00 Test Item Value Reference Range Interpretation Comments Total CK (test code = Total CK) 82 12-191 [facility] [id number] 03:32:00 Test Item Value Reference Range Interpretation Comments Troponin-I (test code no gt See_Comment [Auto mated message] The = Troponin-I) system which g enerated this result transmit regi reference range : <=0.40. The reference r kenneth was not used to interpr et this result as nela l/abnormal. [facility] [employer] [id number] 03:32:00 Test Item Value Reference Range Interpretation Comments eGFR (test code = eGFR) 123 [facility] [employer] [id number] 03:32:00 Test Item Value Reference Range Interpretation Comments A/G Ratio (test code = A/G Ratio) 0.8 0.7-1.6 [facility] [employer] [id number] 03:32:00 Test Item Value Reference Range Interpretation Comments Globulin (test code = Globulin) 4.6 2.0-4.0 [facility] [employer] [id number] 03:32:00 Test Item Value Reference Range Interpretation Comments B/C Ratio (test code = B/C Ratio) 23 6-25 [facility] [id number] 03:32:00 Test Item Value Reference Range Interpretation Comments AGAP (test code = AGAP) 11.8 10.0-20.0 [facility] [id number] 03:32:00 Test Item Value Reference Range Interpretation Comments Bili Total (test code = Bili Total) 0.4 0.2-1.3 [facility] [id number] 03:32:00 Test Item Value Reference Range Interpretation Comments Alk Phos (test code = Alk Phos) 110 39-136 [facility] [id number] 03:32:00 Test Item Value Reference Range Interpretation Comments AST (test code = AST) 10 See_Comment [Auto mated message] The system which ge nerated this result transmit regi reference range : <=37. The reference range was not used to interpr et this result as nela l/abnormal. [facility]2016-02-20 03:32:00 Test Item Value Reference Range Interpretation Comments ALT (test code = ALT) 25 See_Comment [Auto mated message] The system which ge nerated this result transmit regi reference range : <=65. The reference range was not used to interpr et this result as nela l/abnormal. [facility]2016-02-20 03:32:00 Test Item Value Reference Range Interpretation Comments Albumin Lvl (test code = Albumin Lvl) 3.7 3.5-5.0 [facility]2016-02-20 03:32:00 Test Item Value Reference Range Interpretation Comments Total Protein (test code = Total 8.3 6.4-8.4 Protein) [facility]2016-02-20 03:32:00 Test Item Value Reference Range Interpretation Comments Calcium Lvl (test code = Calcium Lvl) 8.2 8.5-10.5 [facility]2016-02-20 03:32:00 Test Item Value Reference Range Interpretation Comments CO2 (test code = CO2) 25 24-32 [facility]2016-02-20 03:32:00 Test Item Value Reference Range Interpretation Comments Chloride Lvl (test code = Chloride Lvl) 105 95-109 [facility]2016-02-20 03:32:00 Test Item Value Reference Range Interpretation Comments Potassium Lvl (test code = Potassium 3.8 3.5-5.1 Lvl) [facility]2016-02-20 03:32:00 Test Item Value Reference Range Interpretation Comments Glucose Lvl (test code = Glucose Lvl) 88 70-99 [facility]2016-02-20 03:32:00 Test Item Value Reference Range Interpretation Comments Sodium Lvl (test code = Sodium Lvl) 138 135-145 [facility]2016-02-20 03:32:00 Test Item Value Reference Range Interpretation Comments Creatinine Lvl (test code = Creatinine 0.62 0.50-1.40 Lvl) [facility]2016-02-20 03:32:00 Test Item Value Reference Range Interpretation Comments BUN (test code = BUN) 14 7-22 [facility]2016-02-20 03:32:00 Test Item Value Reference Range Interpretation Comments Amylase Lvl (test code = Amylase Lvl) 36 25-115 [facility] [id number] 03:32:00 Test Item Value Reference Range Interpretation Comments Lipase Lvl (test code = Lipase Lvl) 126 73-393 [facility]icsJhiacmaEAMDANZXTHYDH4596-18-27 03:32:00 Test Item Value Reference Range Interpretation Comments S Preg (test code = S Negative *NA*(08/11/15 Preg) 9:32 PM) [id number] 03:32:00 Test Item Value Reference Range Interpretation Comments Basophils # (test code 0.1 See_Comment [Aut omated message] The = Basophils #) system which generated this result tra nsmitted reference range : <=0.2. The reference r kenneth was not used to int erpret this result as normal/abnormal . [facility]stSqtobikCKAYJRFNRU0973-32-33 03:32:00 Test Item Value Reference Range Interpretation Comments Basophils (test code = 0.4 See_Comment [Aut omated message] The Basophils) system which ge nerated this result tra nsmitted reference range : <=1.0. The reference r kenneth was not used to int erpret this result as normal/abnormal . [facility]stRfouojvYERQBZILJE5267-58-35 03:32:00 Test Item Value Reference Range Interpretation Comments Segs-Bands # (test code = Segs-Bands #) 9.9 1.5-8.1 [id number] 03:32:00 Test Item Value Reference Range Interpretation Comments Lymphocytes # (test code = Lymphocytes 2.7 1.0-5.5 #) [facility]stWwyujyqGFHIQSDQRL3926-09-28 03:32:00 Test Item Value Reference Range Interpretation Comments Monocytes # (test code 1.0 See_Comment [Aut omated message] The = Monocytes #) system which generated this result tra nsmitted reference range : <=0.8. The reference r kenneth was not used to int erpret this result as normal/abnormal . [facility][id number] 03:32:00 Test Item Value Reference Range Interpretation Comments Eosinophils # (test code 0.2 See_Comment [A utomated message] The = Eosinophils #) system whic h generated this result tra nsmitted reference range : <=0.5. The reference r kenneth was not used to int erpret this result as normal/abnormal . [facility]stMeuguzeKUCLWDYGBF3666-83-06 03:32:00 Test Item Value Reference Range Interpretation Comments Segs (test code = Segs) 71.8 45.0-75.0 [facility]stKrjsqqnVUZIGRCQCE0802-09-19 03:32:00 Test Item Value Reference Range Interpretation Comments Lymphocytes (test code = Lymphocytes) 19.4 20.0-40.0 [id number] 03:32:00 Test Item Value Reference Range Interpretation Comments Monocytes (test code = Monocytes) 7.0 2.0-12.0 [facility]stPaqwoykJSAQQLPIBO9715-66-79 03:32:00 Test Item Value Reference Range Interpretation Comments Eosinophils (test code = 1.4 See_Comment [A utomated message] The Eosinophils) system which ge nerated this result tra nsmitted reference range : <=4.0. The reference r kenneth was not used to int erpret this result as normal/abnormal . [facility]stLlrulysRCECRJBRSP9778-94-73 03:32:00 Test Item Value Reference Range Interpretation Comments Hct (test code = Hct) 42.3 36.0-48.0 [id number] 03:32:00 Test Item Value Reference Range Interpretation Comments WBC (test code = WBC) 13.8 3.7-10.4 [id number] 03:32:00 Test Item Value Reference Range Interpretation Comments MCV (test code = MCV) 89.6 80.0-98.0 [facility]stRfhzdlrPRGZYFCTHM7337-31-30 03:32:00 Test Item Value Reference Range Interpretation Comments MCHC (test code = MCHC) 31.4 32.0-36.0 [facility]stHrzfcskYWLWKCHRYN9341-27-32 03:32:00 Test Item Value Reference Range Interpretation Comments RDW (test code = RDW) 13.2 11.5-14.5 [facility]stJwgboajHRYRTNRIPV3610-42-40 03:32:00 Test Item Value Reference Range Interpretation Comments Hgb (test code = Hgb) 13.3 12.0-16.0 [facility]stCkiigsyYBBVAMSPKI1280-75-00 03:32:00 Test Item Value Reference Range Interpretation Comments RBC (test code = RBC) 4.73 4.20-5.40 [facility]stFbwpbhrBSLPKRYLSM7727-57-99 03:32:00 Test Item Value Reference Range Interpretation Comments MCH (test code = MCH) 28.2 pg 27.0-31.0 [id number] 03:32:00 Test Item Value Reference Range Interpretation Comments MPV (test code = MPV) 8.7 7.4-10.4 [facility]stRptibbuZRMDHYFGTQ1092-78-21 03:32:00 Test Item Value Reference Range Interpretation Comments Platelet (test code = Platelet) 303 133-450 [facility] AND [id number] 03:32:00 Test Item Value Reference Range Interpretation Comments UA Leuk Est (test code Small *ABN*(08/11/15 = UA Leuk Est) 9:32 PM) [facility] AND [id number] 03:32:00 Test Item Value Reference Range Interpretation Comments UA Nitrite (test code Negative (08/11/15 9:32 = UA Nitrite) PM) [facility] AND [id number] 03:32:00 Test Item Value Reference Range Interpretation Comments UA WBC (test code = UA WBC) 3-5 /HPF [facility] AND [id number] 03:32:00 Test Item Value Reference Range Interpretation Comments UA Sq Epi (test code = UA Sq Occasional /LPF Epi) [facility] AND [id number] 03:32:00 Test Item Value Reference Range Interpretation Comments Micro? (test code = Performed (08/11/15 9:32 Micro?) PM) [facility] AND [id number] 03:32:00 Test Item Value Reference Range Interpretation Comments UA Bacteria (test code = UA Occasional /HPF Bacteria) [facility] AND [id number] 03:32:00 Test Item Value Reference Range Interpretation Comments UA RBC (test code = 0-2 /HPF See_Comment [Automa regi message] The UA RBC) system which ge nerated this result tra nsmitted reference range : <=2. The reference range was not used to interpr et this result as nela l/abnormal. [facility] AND [id number] 03:32:00 Test Item Value Reference Range Interpretation Comments UA Protein (test code Negative (08/11/15 9:32 = [facility]A Protein) PM) [facility] [id number] 03:32:00 Test Item Value Reference Range Interpretation Comments UA pH (test code = UA pH) 6.5 1 5.0-8.0 [facility] [id number] 03:32:00 Test Item Value Reference Range Interpretation Comments UA Spec Grav (test code = UA Spec 1.010 1 Grav) [facility] [id number] 03:32:00 Test Item Value Reference Range Interpretation Comments UA Turbidity (test code = Clear (08/11/15 9:32 UA Turbidity) PM) [facility] [id number] 03:32:00 Test Item Value Reference Range Interpretation Comments UA Bili (test code = Negative *NA*(08/11/15 UA Bili) 9:32 PM) [facility] [id number] 03:32:00 Test Item Value Reference Range Interpretation Comments UA Ketones (test code Negative *NA*(08/11/15 = UA Ketones) 9:32 PM) [facility] [id number] 03:32:00 Test Item Value Reference Range Interpretation Comments UA Color (test code = Yellow *NA*(08/11/15 UA Color) 9:32 PM) [facility] [id number] 03:32:00 Test Item Value Reference Range Interpretation Comments UA Glucose (test code Negative (08/11/15 9:32 = UA Glucose) PM) [facility] [id number] 03:32:00 Test Item Value Reference Range Interpretation Comments UA Urobilinogen (test code = UA 0.2 0.1-1.0 Urobilinogen) [facility] [id number] 03:32:00 Test Item Value Reference Range Interpretation Comments UA Blood (test code = Trace *ABN*(08/11/15 UA Blood) 9:32 PM) [facility] [id number] 03:32:00 Test Item Value Reference Range Interpretation Comments CK MB Index (test no gt See_Comment [Automate d message] The code = CK MB Index) system w [facility] generated this result transmit regi reference range : <=2.5. The reference range was not used to interpr et this result as nela l/abnormal. [facility] CitySwagCARDIAC [id number] 03:32:00 Test Item Value Reference Range Interpretation Comments CK MB (test code = CK MB) no gt 0.5-3.6 [facility]evilleMycoTechnologyAC [id number] 03:32:00 Test Item Value Reference Range Interpretation Comments Total CK (test code = Total CK) 82 12-191 [facility]evilleMycoTe[facility] [id number] 03:32:00 Test Item Value Reference Range Interpretation Comments Troponin-I (test code no gt See_Comment [Auto mated message] The = Troponin-I) system which g enerated this result transmit regi reference range : <=0.40. The reference r kenneth was not used to interpr et this result as nela l/abnormal. [facility] [id number] 03:32:00 Test Item Value Reference Range Interpretation Comments eGFR (test code = eGFR) 123 [facility] [id number] 03:32:00 Test Item Value Reference Range Interpretation Comments A/G Ratio (test code = A/G Ratio) 0.8 0.7-1.6 [facility] [id number] 03:32:00 Test Item Value Reference Range Interpretation Comments Globulin (test code = Globulin) 4.6 2.0-4.0 [facility] [id number] 03:32:00 Test Item Value Reference Range Interpretation Comments B/C Ratio (test code = B/C Ratio) 23 6-25 [facility] [id number] 03:32:00 Test Item Value Reference Range Interpretation Comments AGAP (test code = AGAP) 11.8 10.0-20.0 [facility] [id number] 03:32:00 Test Item Value Reference Range Interpretation Comments Bili Total (test code = Bili Total) 0.4 0.2-1.3 [facility] [id number] 03:32:00 Test Item Value Reference Range Interpretation Comments Alk Phos (test code = Alk Phos) 110 39-136 [facility] [id number] 03:32:00 Test Item Value Reference Range Interpretation Comments AST (test code = AST) 10 See_Comment [Auto mated message] The system which ge nerated this result transmit regi reference range : <=37. The reference range was not used to interpr et this result as nela l/abnormal. [facility]2016-02-20 03:32:00 Test Item Value Reference Range Interpretation Comments ALT (test code = ALT) 25 See_Comment [Auto mated message] The system which ge nerated this result transmit regi reference range : <=65. The reference range was not used to interpr et this result as nela l/abnormal. [place] [id number] 03:32:00 Test Item Value Reference Range Interpretation Comments Albumin Lvl (test code = Albumin Lvl) 3.7 3.5-5.0 [facility]2016-02-20 03:32:00 Test Item Value Reference Range Interpretation Comments Total Protein (test code = Total 8.3 6.4-8.4 Protein) [facility]2016-02-20 03:32:00 Test Item Value Reference Range Interpretation Comments Calcium Lvl (test code = Calcium Lvl) 8.2 8.5-10.5 [facility]2016-02-20 03:32:00 Test Item Value Reference Range Interpretation Comments CO2 (test code = CO2) 25 24-32 [facility]2016-02-20 03:32:00 Test Item Value Reference Range Interpretation Comments Chloride Lvl (test code = Chloride Lvl) 105 95-109 [place] [id number] 03:32:00 Test Item Value Reference Range Interpretation Comments Potassium Lvl (test code = Potassium 3.8 3.5-5.1 Lvl) [facility]2016-02-20 03:32:00 Test Item Value Reference Range Interpretation Comments Glucose Lvl (test code = Glucose Lvl) 88 70-99 [facility]2016-02-20 03:32:00 Test Item Value Reference Range Interpretation Comments Sodium Lvl (test code = Sodium Lvl) 138 135-145 [facility]2016-02-20 03:32:00 Test Item Value Reference Range Interpretation Comments Creatinine Lvl (test code = Creatinine 0.62 0.50-1.40 Lvl) [facility]2016-02-20 03:32:00 Test Item Value Reference Range Interpretation Comments BUN (test code = BUN) 14 7-22 [facility]2016-02-20 03:32:00 Test Item Value Reference Range Interpretation Comments Amylase Lvl (test code = Amylase Lvl) 36 25-115 [facility]2016-02-20 03:32:00 Test Item Value Reference Range Interpretation Comments Lipase Lvl (test code = Lipase Lvl) 126 73-393 [id number] 03:32:00 Test Item Value Reference Range Interpretation Comments S Preg (test code = S Negative *NA*(08/11/15 Preg) 9:32 PM) [id number] 03:32:00 Test Item Value Reference Range Interpretation Comments Basophils # (test code 0.1 See_Comment [Aut omated message] The = Basophils #) system which generated this result tra nsmitted reference range : <=0.2. The reference r kenneth was not used to int erpret this result as normal/abnormal . [id number] 03:32:00 Test Item Value Reference Range Interpretation Comments Basophils (test code = 0.4 See_Comment [Aut omated message] The Basophils) system which ge nerated this result tra nsmitted reference range : <=1.0. The reference r kenneth was not used to int erpret this result as normal/abnormal . [id number] 03:32:00 Test Item Value Reference Range Interpretation Comments Segs-Bands # (test code = Segs-Bands #) 9.9 1.5-8.1 [id number] 03:32:00 Test Item Value Reference Range Interpretation Comments Lymphocytes # (test code = Lymphocytes 2.7 1.0-5.5 #) [id number] 03:32:00 Test Item Value Reference Range Interpretation Comments Monocytes # (test code 1.0 See_Comment [Aut omated message] The = Monocytes #) system which generated this result tra nsmitted reference range : <=0.8. The reference r kenneth was not used to int erpret this result as normal/abnormal . [facility]stTcoccskVJMMIXJSBG0757-58-46 03:32:00 Test Item Value Reference Range Interpretation Comments Eosinophils # (test code 0.2 See_Comment [A utomated message] The = Eosinophils #) system whic h generated this result tra nsmitted reference range : <=0.5. The reference r kenneth was not used to int erpret this result as normal/abnormal . [facility] Hi[id number] 03:32:00 Test Item Value Reference Range Interpretation Comments Segs (test code = Segs) 71.8 45.0-75.0 [id number] 03:32:00 Test Item Value Reference Range Interpretation Comments Lymphocytes (test code = Lymphocytes) 19.4 20.0-40.0 [facility] HillcrestBcvuseoBMNRJGWXJR7259-19-79 03:32:00 Test Item Value Reference Range Interpretation Comments Monocytes (test code = Monocytes) 7.0 2.0-12.0 [facility]stIsufxjmRMNIWQESBF6457-27-45 03:32:00 Test Item Value Reference Range Interpretation Comments Eosinophils (test code = 1.4 See_Comment [A utomated message] The Eosinophils) system which ge nerated this result tra nsmitted reference range : <=4.0. The reference r kenneth was not used to int erpret this result as normal/abnormal . [id number] 03:32:00 Test Item Value Reference Range Interpretation Comments Hct (test code = Hct) 42.3 36.0-48.0 [facility][id number] 03:32:00 Test Item Value Reference Range Interpretation Comments WBC (test code = WBC) 13.8 3.7-10.4 [facility] Hi[id number] 03:32:00 Test Item Value Reference Range Interpretation Comments MCV (test code = MCV) 89.6 80.0-98.0 [facility]crestDudmnihQRVCNFQNZU2776-11-77 03:32:00 Test Item Value Reference Range Interpretation Comments MCHC (test code = MCHC) 31.4 32.0-36.0 [id number] 03:32:00 Test Item Value Reference Range Interpretation Comments RDW (test code = RDW) 13.2 11.5-14.5 [facility]stXragbuoSZCDNMDWYR5105-08-71 03:32:00 Test Item Value Reference Range Interpretation Comments Hgb (test code = Hgb) 13.3 12.0-16.0 [facility] HillcrestQmmanwrDHUWDBBQHK9171-57-21 03:32:00 Test Item Value Reference Range Interpretation Comments RBC (test code = RBC) 4.73 4.20-5.40 [id number] 03:32:00 Test Item Value Reference Range Interpretation Comments MCH (test code = MCH) 28.2 pg 27.0-31.0 [id number] 03:32:00 Test Item Value Reference Range Interpretation Comments MPV (test code = MPV) 8.7 7.4-10.4 [facility]stMxfdwedTQJNJFKSQK1521-48-76 03:32:00 Test Item Value Reference Range Interpretation Comments Platelet (test code = Platelet) 303 133-450 [facility] AND [id number] 03:32:00 Test Item Value Reference Range Interpretation Comments UA Leuk Est (test code Small *ABN*(08/11/15 = UA Leuk Est) 9:32 PM) [facility] AND [id number] 03:32:00 Test Item Value Reference Range Interpretation Comments UA Nitrite (test code Negative (08/11/15 9:32 = UA Nitrite) PM) [facility] AND [id number] 03:32:00 Test Item Value Reference Range Interpretation Comments UA WBC (test code = UA WBC) 3-5 /HPF [facility] AND [id number] 03:32:00 Test Item Value Reference Range Interpretation Comments UA Sq Epi (test code = UA Sq Occasional /LPF Epi) [facility] AND [id number] 03:32:00 Test Item Value Reference Range Interpretation Comments Micro? (test code = Performed (08/11/15 9:32 Micro?) PM) [facility] AND [id number] 03:32:00 Test Item Value Reference Range Interpretation Comments UA Bacteria (test code = UA Occasional /HPF Bacteria) [facility] AND [id number] 03:32:00 Test Item Value Reference Range Interpretation Comments UA RBC (test code = 0-2 /HPF See_Comment [Automa regi message] The UA RBC) system which ge nerated this result tra nsmitted reference range : <=2. The reference range was not used to interpr et this result as nela l/abnormal. [facility] [id number] 03:32:00 Test Item Value Reference Range Interpretation Comments UA Protein (test code Negative (08/11/15 9:32 = UA Protein) PM) [facility] [id number] 03:32:00 Test Item Value Reference Range Interpretation Comments UA pH (test code = UA pH) 6.5 1 5.0-8.0 [facility] [id number] 03:32:00 Test Item Value Reference Range Interpretation Comments UA Spec Grav (test code = UA Spec 1.010 1 Grav) [facility] [id number] 03:32:00 Test Item Value Reference Range Interpretation Comments UA Turbidity (test code = Clear (08/11/15 9:32 UA Turbidity) PM) [facility] [id number] 03:32:00 Test Item Value Reference Range Interpretation Comments UA Bili (test code = Negative *NA*(08/11/15 UA Bili) 9:32 PM) [facility] [id number] 03:32:00 Test Item Value Reference Range Interpretation Comments UA Ketones (test code Negative *NA*(08/11/15 = UA Ketones) 9:32 PM) [facility] [id number] 03:32:00 Test Item Value Reference Range Interpretation Comments UA Color (test code = Yellow *NA*(08/11/15 UA Color) 9:32 PM) [facility] [id number] 03:32:00 Test Item Value Reference Range Interpretation Comments UA Glucose (test code Negative (08/11/15 9:32 = UA Glucose) PM) [facility] [id number] 03:32:00 Test Item Value Reference Range Interpretation Comments UA Urobilinogen (test code = UA 0.2 0.1-1.0 Urobilinogen) [facility] [id number] 03:32:00 Test Item Value Reference Range Interpretation Comments UA Blood (test code = Trace *ABN*(08/11/15 UA Blood) 9:32 PM) [facility] [id number] 03:32:00 Test Item Value Reference Range Interpretation Comments CK MB Index (test no gt See_Comment [Automate d message] The code = CK MB Index) system w [facility] generated this result transmit regi reference range : <=2.5. The reference range was not used to interpr et this result as nela l/abnormal. [facility] [employer] [id number] 03:32:00 Test Item Value Reference Range Interpretation Comments CK MB (test code = CK MB) no gt 0.5-3.6 [facility] [employer] [id number] 03:32:00 Test Item Value Reference Range Interpretation Comments Total CK (test code = Total CK) 82 12-191 [facility] [employer] [id number] 03:32:00 Test Item Value Reference Range Interpretation Comments Troponin-I (test code no gt See_Comment [Auto mated message] The = Troponin-I) system which g enerated this result transmit regi reference range : <=0.40. The reference r kenneth was not used to interpr et this result as nela l/abnormal. [employer]2016-02-20 03:32:00 Test Item Value Reference Range Interpretation Comments eGFR (test code = eGFR) 123 [facility] [employer] [id number] 03:32:00 Test Item Value Reference Range Interpretation Comments A/G Ratio (test code = A/G Ratio) 0.8 0.7-1.6 [facility] [employer]2016-02-20 03:32:00 Test Item Value Reference Range Interpretation Comments Globulin (test code = Globulin) 4.6 2.0-4.0 [facility] [employer]2016-02-20 03:32:00 Test Item Value Reference Range Interpretation Comments B/C Ratio (test code = B/C Ratio) 23 6-25 [facility] [employer]2016-02-20 03:32:00 Test Item Value Reference Range Interpretation Comments AGAP (test code = AGAP) 11.8 10.0-20.0 [facility] [employer]2016-02-20 03:32:00 Test Item Value Reference Range Interpretation Comments Bili Total (test code = Bili Total) 0.4 0.2-1.3 [facility] [employer]2016-02-20 03:32:00 Test Item Value Reference Range Interpretation Comments Alk Phos (test code = Alk Phos) 110 39-136 [facility] [employer]2016-02-20 03:32:00 Test Item Value Reference Range Interpretation Comments AST (test code = AST) 10 See_Comment [Auto mated message] The system which ge nerated this result transmit regi reference range : <=37. The reference range was not used to interpr et this result as nela l/abnormal. [facility]2016-02-20 03:32:00 Test Item Value Reference Range Interpretation Comments ALT (test code = ALT) 25 See_Comment [Auto mated message] The system which ge nerated this result transmit regi reference range : <=65. The reference range was not used to interpr et this result as nela l/abnormal. [facility]2016-02-20 03:32:00 Test Item Value Reference Range Interpretation Comments Albumin Lvl (test code = Albumin Lvl) 3.7 3.5-5.0 [facility]2016-02-20 03:32:00 Test Item Value Reference Range Interpretation Comments Total Protein (test code = Total 8.3 6.4-8.4 Protein) [facility]2016-02-20 03:32:00 Test Item Value Reference Range Interpretation Comments Calcium Lvl (test code = Calcium Lvl) 8.2 8.5-10.5 [facility]2016-02-20 03:32:00 Test Item Value Reference Range Interpretation Comments CO2 (test code = CO2) 25 24-32 [facility]2016-02-20 03:32:00 Test Item Value Reference Range Interpretation Comments Chloride Lvl (test code = Chloride Lvl) 105 95-109 [facility]2016-02-20 03:32:00 Test Item Value Reference Range Interpretation Comments Potassium Lvl (test code = Potassium 3.8 3.5-5.1 Lvl) [facility]2016-02-20 03:32:00 Test Item Value Reference Range Interpretation Comments Glucose Lvl (test code = Glucose Lvl) 88 70-99 [facility]2016-02-20 03:32:00 Test Item Value Reference Range Interpretation Comments Sodium Lvl (test code = Sodium Lvl) 138 135-145 [facility]2016-02-20 03:32:00 Test Item Value Reference Range Interpretation Comments Creatinine Lvl (test code = Creatinine 0.62 0.50-1.40 Lvl) [facility]2016-02-20 03:32:00 Test Item Value Reference Range Interpretation Comments BUN (test code = BUN) 14 7-22 [facility]2016-02-20 03:32:00 Test Item Value Reference Range Interpretation Comments Amylase Lvl (test code = Amylase Lvl) 36 25-115 [facility]2016-02-20 03:32:00 Test Item Value Reference Range Interpretation Comments Lipase Lvl (test code = Lipase Lvl) 126 73-393 [id number] 03:32:00 Test Item Value Reference Range Interpretation Comments S Preg (test code = S Negative *NA*(08/11/15 Preg) 9:32 PM) [facility]PaodwbzRAKWBCLYDC4279-32-13 03:32:00 Test Item Value Reference Range Interpretation Comments Basophils # (test code 0.1 See_Comment [Aut omated message] The = Basophils #) system which generated this result tra nsmitted reference range : <=0.2. The reference r kenneth was not used to int erpret this result as normal/abnormal . [id number] 03:32:00 Test Item Value Reference Range Interpretation Comments Basophils (test code = 0.4 See_Comment [Aut omated message] The Basophils) system which ge nerated this result tra nsmitted reference range : <=1.0. The reference r kenneth was not used to int erpret this result as normal/abnormal . [facility]stArwwsciVWYMNKIRMO6225-81-88 03:32:00 Test Item Value Reference Range Interpretation Comments Segs-Bands # (test code = Segs-Bands #) 9.9 1.5-8.1 [facility]stYsmcherDFPYENXPAN2777-20-55 03:32:00 Test Item Value Reference Range Interpretation Comments Lymphocytes # (test code = Lymphocytes 2.7 1.0-5.5 #) [facility]stRpskoswFQFPYUDCTY4854-85-79 03:32:00 Test Item Value Reference Range Interpretation Comments Monocytes # (test code 1.0 See_Comment [Aut omated message] The = Monocytes #) system which generated this result tra nsmitted reference range : <=0.8. The reference r kenneth was not used to int erpret this result as normal/abnormal . [place] [id number] 03:32:00 Test Item Value Reference Range Interpretation Comments Eosinophils # (test code 0.2 See_Comment [A utomated message] The = Eosinophils #) system whic h generated this result tra nsmitted reference range : <=0.5. The reference r kenneth was not used to int erpret this result as normal/abnormal . [facility]stGeudiujXDZPACMELQ2358-81-01 03:32:00 Test Item Value Reference Range Interpretation Comments Segs (test code = Segs) 71.8 45.0-75.0 [facility]stGhabegoIPYMPHUQVV9667-80-97 03:32:00 Test Item Value Reference Range Interpretation Comments Lymphocytes (test code = Lymphocytes) 19.4 20.0-40.0 [facility]stHgczanaIXZJKKUDOZ3896-34-85 03:32:00 Test Item Value Reference Range Interpretation Comments Monocytes (test code = Monocytes) 7.0 2.0-12.0 [facility]stFjayaorPFYXYAQPKA7710-04-57 03:32:00 Test Item Value Reference Range Interpretation Comments Eosinophils (test code = 1.4 See_Comment [A utomated message] The Eosinophils) system which ge nerated this result tra nsmitted reference range : <=4.0. The reference r kenneth was not used to int erpret this result as normal/abnormal . [facility]stQdmgxpcMHNZLHMEUF1122-79-46 03:32:00 Test Item Value Reference Range Interpretation Comments Hct (test code = Hct) 42.3 36.0-48.0 [facility]stKigsxfyHUWNCNKFPF3785-91-26 03:32:00 Test Item Value Reference Range Interpretation Comments WBC (test code = WBC) 13.8 3.7-10.4 [facility]stNtbdwwdTYJVJKXEBP1268-07-59 03:32:00 Test Item Value Reference Range Interpretation Comments MCV (test code = MCV) 89.6 80.0-98.0 [facility]stYwvsykvAPRJZFVRFM8414-32-50 03:32:00 Test Item Value Reference Range Interpretation Comments MCHC (test code = MCHC) 31.4 32.0-36.0 [facility]stTjuyjcnRBVTOQPQAL4379-81-69 03:32:00 Test Item Value Reference Range Interpretation Comments RDW (test code = RDW) 13.2 11.5-14.5 [facility]stNfpbnijTTAUUYIBFD2982-75-63 03:32:00 Test Item Value Reference Range Interpretation Comments Hgb (test code = Hgb) 13.3 12.0-16.0 [facility]stVcjjfbcIBBTRWHRWS9375-34-22 03:32:00 Test Item Value Reference Range Interpretation Comments RBC (test code = RBC) 4.73 4.20-5.40 [facility]stNfunltfWLFEDCXMWW7449-05-07 03:32:00 Test Item Value Reference Range Interpretation Comments MCH (test code = MCH) 28.2 pg 27.0-31.0 [facility]stAbakiloWILFSLFZNS3385-47-23 03:32:00 Test Item Value Reference Range Interpretation Comments MPV (test code = MPV) 8.7 7.4-10.4 [facility]stOaperhvDBKHMKHSSI2554-71-31 03:32:00 Test Item Value Reference Range Interpretation Comments Platelet (test code = Platelet) 303 133-450 [facility] AND [id number] 03:32:00 Test Item Value Reference Range Interpretation Comments UA Leuk Est (test code Small *ABN*(08/11/15 = UA Leuk Est) 9:32 PM) [facility] AND [id number] 03:32:00 Test Item Value Reference Range Interpretation Comments UA Nitrite (test code Negative (08/11/15 9:32 = UA Nitrite) PM) [facility] AND [id number] 03:32:00 Test Item Value Reference Range Interpretation Comments UA WBC (test code = UA WBC) 3-5 /HPF [facility] AND [id number] 03:32:00 Test Item Value Reference Range Interpretation Comments UA Sq Epi (test code = UA Sq Occasional /LPF Epi) [facility] AND [id number] 03:32:00 Test Item Value Reference Range Interpretation Comments Micro? (test code = Performed (08/11/15 9:32 Micro?) PM) [facility] AND [id number] 03:32:00 Test Item Value Reference Range Interpretation Comments UA Bacteria (test code = UA Occasional /HPF Bacteria) [facility] AND [id number] 03:32:00 Test Item Value Reference Range Interpretation Comments UA RBC (test code = 0-2 /HPF See_Comment [Automa regi message] The UA RBC) system which ge nerated this result tra nsmitted reference range : <=2. The reference range was not used to interpr et this result as nela l/abnormal. [facility] [id number] 03:32:00 Test Item Value Reference Range Interpretation Comments UA Protein (test code Negative (08/11/15 9:32 = UA Protein) PM) [facility] [id number] 03:32:00 Test Item Value Reference Range Interpretation Comments UA pH (test code = UA pH) 6.5 1 5.0-8.0 [facility] [id number] 03:32:00 Test Item Value Reference Range Interpretation Comments UA Spec Grav (test code = UA Spec 1.010 1 Grav) [facility] [id number] 03:32:00 Test Item Value Reference Range Interpretation Comments UA Turbidity (test code = Clear (08/11/15 9:32 UA Turbidity) PM) [facility] [id number] 03:32:00 Test Item Value Reference Range Interpretation Comments UA Bili (test code = Negative *NA*(08/11/15 UA Bili) 9:32 PM) [facility] [id number] 03:32:00 Test Item Value Reference Range Interpretation Comments UA Ketones (test code Negative *NA*(08/11/15 = UA Ketones) 9:32 PM) [facility] [id number] 03:32:00 Test Item Value Reference Range Interpretation Comments UA Color (test code = Yellow *NA*(08/11/15 UA Color) 9:32 PM) [facility] [id number] 03:32:00 Test Item Value Reference Range Interpretation Comments UA Glucose (test code Negative (08/11/15 9:32 = UA Glucose) PM) [facility] [id number] 03:32:00 Test Item Value Reference Range Interpretation Comments UA Urobilinogen (test code = UA 0.2 0.1-1.0 Urobilinogen) [facility] [id number] 03:32:00 Test Item Value Reference Range Interpretation Comments UA Blood (test code = Trace *ABN*(08/11/15 UA Blood) 9:32 PM) [facility] [id number] 03:32:00 Test Item Value Reference Range Interpretation Comments CK MB Index (test no gt See_Comment [Automate d message] The code = CK MB Index) system w hich generated this result transmit regi reference range : <=2.5. The reference range was not used to interpr et this result as nela l/abnormal. [facility] [employer]2016-02-20 03:32:00 Test Item Value Reference Range Interpretation Comments CK MB (test code = CK MB) no gt 0.5-3.6 [facility] [employer]2016-02-20 03:32:00 Test Item Value Reference Range Interpretation Comments Total CK (test code = Total CK) 82 12-191 [facility] [employer]2016-02-20 03:32:00 Test Item Value Reference Range Interpretation Comments Troponin-I (test code no gt See_Comment [Auto mated message] The = Troponin-I) system which g enerated this result transmit regi reference range : <=0.40. The reference r kenneth was not used to interpr et this result as nela l/abnormal. [employer]2016-02-20 03:32:00 Test Item Value Reference Range Interpretation Comments eGFR (test code = eGFR) 123 [facility] [employer]2016-02-20 03:32:00 Test Item Value Reference Range Interpretation Comments A/G Ratio (test code = A/G Ratio) 0.8 0.7-1.6 [facility] [employer]2016-02-20 03:32:00 Test Item Value Reference Range Interpretation Comments Globulin (test code = Globulin) 4.6 2.0-4.0 [employer]2016-02-20 03:32:00 Test Item Value Reference Range Interpretation Comments B/C Ratio (test code = B/C Ratio) 23 6-25 [facility] [employer]2016-02-20 03:32:00 Test Item Value Reference Range Interpretation Comments AGAP (test code = AGAP) 11.8 10.0-20.0 [employer]2016-02-20 03:32:00 Test Item Value Reference Range Interpretation Comments Bili Total (test code = Bili Total) 0.4 0.2-1.3 [employer]2016-02-20 03:32:00 Test Item Value Reference Range Interpretation Comments Alk Phos (test code = Alk Phos) 110 39-136 [facility]2016-02-20 03:32:00 Test Item Value Reference Range Interpretation Comments AST (test code = AST) 10 See_Comment [Auto mated message] The system which ge nerated this result transmit regi reference range : <=37. The reference range was not used to interpr et this result as nela l/abnormal. [facility]2016-02-20 03:32:00 Test Item Value Reference Range Interpretation Comments ALT (test code = ALT) 25 See_Comment [Auto mated message] The system which ge nerated this result transmit regi reference range : <=65. The reference range was not used to interpr et this result as nela l/abnormal. [facility]2016-02-20 03:32:00 Test Item Value Reference Range Interpretation Comments Albumin Lvl (test code = Albumin Lvl) 3.7 3.5-5.0 [facility]2016-02-20 03:32:00 Test Item Value Reference Range Interpretation Comments Total Protein (test code = Total 8.3 6.4-8.4 Protein) [facility]2016-02-20 03:32:00 Test Item Value Reference Range Interpretation Comments Calcium Lvl (test code = Calcium Lvl) 8.2 8.5-10.5 [facility]2016-02-20 03:32:00 Test Item Value Reference Range Interpretation Comments CO2 (test code = CO2) 25 24-32 [facility]2016-02-20 03:32:00 Test Item Value Reference Range Interpretation Comments Chloride Lvl (test code = Chloride Lvl) 105 95-109 [facility]2016-02-20 03:32:00 Test Item Value Reference Range Interpretation Comments Potassium Lvl (test code = Potassium 3.8 3.5-5.1 Lvl) [facility]2016-02-20 03:32:00 Test Item Value Reference Range Interpretation Comments Glucose Lvl (test code = Glucose Lvl) 88 70-99 [facility]2016-02-20 03:32:00 Test Item Value Reference Range Interpretation Comments Sodium Lvl (test code = Sodium Lvl) 138 135-145 [place] 672356-02-20 03:32:00 Test Item Value Reference Range Interpretation Comments Creatinine Lvl (test code = Creatinine 0.62 0.50-1.40 Lvl) [facility]2016-02-20 03:32:00 Test Item Value Reference Range Interpretation Comments BUN (test code = BUN) 14 7-22 [facility]2016-02-20 03:32:00 Test Item Value Reference Range Interpretation Comments Amylase Lvl (test code = Amylase Lvl) 36 25-115 [facility]2016-02-20 03:32:00 Test Item Value Reference Range Interpretation Comments Lipase Lvl (test code = Lipase Lvl) 126 73-393 [place] [address]2016-02-20 03:32:00 Test Item Value Reference Range Interpretation Comments S Preg (test code = S Negative *NA*(08/11/15 Preg) 9:32 PM) [id number] 03:32:00 Test Item Value Reference Range Interpretation Comments Basophils # (test code 0.1 See_Comment [Aut omated message] The = Basophils #) system which generated this result tra nsmitted reference range : <=0.2. The reference r kenneth was not used to int erpret this result as normal/abnormal . [facility]stOhagyxoPYKSYKGJXD0412-80-22 03:32:00 Test Item Value Reference Range Interpretation Comments Basophils (test code = 0.4 See_Comment [Aut omated message] The Basophils) system which ge nerated this result tra nsmitted reference range : <=1.0. The reference r kenneth was not used to int erpret this result as normal/abnormal . [facility]stMubgdwtYLGJYLDEEV7179-18-44 03:32:00 Test Item Value Reference Range Interpretation Comments Segs-Bands # (test code = Segs-Bands #) 9.9 1.5-8.1 [facility]stBybebkwVQVYUKRSZY7387-37-64 03:32:00 Test Item Value Reference Range Interpretation Comments Lymphocytes # (test code = Lymphocytes 2.7 1.0-5.5 #) [facility]stEnjsmnzLLJOGYJLWZ0055-81-02 03:32:00 Test Item Value Reference Range Interpretation Comments Monocytes # (test code 1.0 See_Comment [Aut omated message] The = Monocytes #) system which generated this result tra nsmitted reference range : <=0.8. The reference r kenneth was not used to int erpret this result as normal/abnormal . [facility]stPacithzZCCSPGVHLZ3799-47-29 03:32:00 Test Item Value Reference Range Interpretation Comments Eosinophils # (test code 0.2 See_Comment [A utomated message] The = Eosinophils #) system whic h generated this result tra nsmitted reference range : <=0.5. The reference r kenneth was not used to int erpret this result as normal/abnormal . [facility]stPhukwatVPJFKNGRJX0323-57-70 03:32:00 Test Item Value Reference Range Interpretation Comments Segs (test code = Segs) 71.8 45.0-75.0 [facility]stHodgfhlAFVXWCMXTH5961-68-77 03:32:00 Test Item Value Reference Range Interpretation Comments Lymphocytes (test code = Lymphocytes) 19.4 20.0-40.0 [facility]stKqogwxvSKZZPYHSRI7612-32-03 03:32:00 Test Item Value Reference Range Interpretation Comments Monocytes (test code = Monocytes) 7.0 2.0-12.0 [facility]stCdsajleSDPRZTBRLR4598-51-68 03:32:00 Test Item Value Reference Range Interpretation Comments Eosinophils (test code = 1.4 See_Comment [A utomated message] The Eosinophils) system which ge nerated this result tra nsmitted reference range : <=4.0. The reference r kenneth was not used to int erpret this result as normal/abnormal . [facility]stAhghwvtTIKNEHLXVZ5935-52-69 03:32:00 Test Item Value Reference Range Interpretation Comments Hct (test code = Hct) 42.3 36.0-48.0 [facility]stMtbgpssTRJDXIBWKC5451-17-14 03:32:00 Test Item Value Reference Range Interpretation Comments WBC (test code = WBC) 13.8 3.7-10.4 [facility]stOzygsnbGLBYIGLFMA2444-59-72 03:32:00 Test Item Value Reference Range Interpretation Comments MCV (test code = MCV) 89.6 80.0-98.0 [facility]stGuxchxaIJNHGJHHXE3552-39-31 03:32:00 Test Item Value Reference Range Interpretation Comments MCHC (test code = MCHC) 31.4 32.0-36.0 [facility]stCpuobfoVDDMCKZFDR8834-62-60 03:32:00 Test Item Value Reference Range Interpretation Comments RDW (test code = RDW) 13.2 11.5-14.5 [facility]stKjhlcboFLWRZDROYX2491-05-14 03:32:00 Test Item Value Reference Range Interpretation Comments Hgb (test code = Hgb) 13.3 12.0-16.0 [facility]stHtoqrzhQXJWJKMHET5785-28-77 03:32:00 Test Item Value Reference Range Interpretation Comments RBC (test code = RBC) 4.73 4.20-5.40 [facility] HillcrestGtoxioyACVIXICAOV6998-50-89 03:32:00 Test Item Value Reference Range Interpretation Comments MCH (test code = MCH) 28.2 pg 27.0-31.0 [facility]crestFdsednuWJWJCBLHRO7538-94-67 03:32:00 Test Item Value Reference Range Interpretation Comments MPV (test code = MPV) 8.7 7.4-10.4 [facility]stOeasscwTCNPJRLZZC9538-36-70 03:32:00 Test Item Value Reference Range Interpretation Comments Platelet (test code = Platelet) 303 133-450 [facility] AND [id number] 03:32:00 Test Item Value Reference Range Interpretation Comments UA Leuk Est (test code Small *ABN*(08/11/15 = UA Leuk Est) 9:32 PM) [facility] AND [id number] 03:32:00 Test Item Value Reference Range Interpretation Comments UA Nitrite (test code Negative (08/11/15 9:32 = UA Nitrite) PM) [facility] AND [id number] 03:32:00 Test Item Value Reference Range Interpretation Comments UA WBC (test code = UA WBC) 3-5 /HPF [facility] AND [id number] 03:32:00 Test Item Value Reference Range Interpretation Comments UA Sq Epi (test code = UA Sq Occasional /LPF Epi) [facility] AND [id number] 03:32:00 Test Item Value Reference Range Interpretation Comments Micro? (test code = Performed (08/11/15 9:32 Micro?) PM) [facility] AND [id number] 03:32:00 Test Item Value Reference Range Interpretation Comments UA Bacteria (test code = UA Occasional /HPF Bacteria) [facility] AND [id number] 03:32:00 Test Item Value Reference Range Interpretation Comments UA RBC (test code = 0-2 /HPF See_Comment [Automa regi message] The UA RBC) system which ge nerated this result tra nsmitted reference range : <=2. The reference range was not used to interpr et this result as nela l/abnormal. [facility] AND [id number] 03:32:00 Test Item Value Reference Range Interpretation Comments UA Protein (test code Negative (08/11/15 9:32 = UA Protein) PM) [facility] AND [id number] 03:32:00 Test Item Value Reference Range Interpretation Comments UA pH (test code = UA pH) 6.5 1 5.0-8.0 [facility] AND [id number] 03:32:00 Test Item Value Reference Range Interpretation Comments UA Spec Grav (test code = UA Spec 1.010 1 Grav) [facility] AND [id number] 03:32:00 Test Item Value Reference Range Interpretation Comments UA Turbidity (test code = Clear (08/11/15 9:32 UA Turbidity) PM) [facility] AND [id number] 03:32:00 Test Item Value Reference Range Interpretation Comments UA Bili (test code = Negative *NA*(08/11/15 UA Bili) 9:32 PM) [facility] AND [id number] 03:32:00 Test Item Value Reference Range Interpretation Comments UA Ketones (test code Negative *NA*(08/11/15 = UA Ketones) 9:32 PM) [facility] AND [id number] 03:32:00 Test Item Value Reference Range Interpretation Comments UA Color (test code = Yellow *NA*(08/11/15 UA Color) 9:32 PM) [facility] AND [id number] 03:32:00 Test Item Value Reference Range Interpretation Comments UA Glucose (test code Negative (08/11/15 9:32 = UA Glucose) PM) [facility] AND [id number] 03:32:00 Test Item Value Reference Range Interpretation Comments UA Urobilinogen (test code = UA 0.2 0.1-1.0 Urobilinogen) [facility] AND [id number] 03:32:00 Test Item Value Reference Range Interpretation Comments UA Blood (test code = Trace *ABN*(08/11/15 UA Blood) 9:32 PM) [id number] 03:24:00 Test Item Value Reference Range Interpretation Comments CDC HIV 4th GEN (test Negative (08/11/15 9:24 code = CDC HIV 4th PM) GEN) [id number] 03:24:00 Test Item Value Reference Range Interpretation Comments CDC HIV 4th GEN (test Negative (08/11/15 9:24 code = CDC HIV 4th PM) GEN) [id number] 03:24:00 Test Item Value Reference Range Interpretation Comments [facility] HIV 4th GEN (test Negative (08/11/15 9:24 code = CDC HIV 4th PM) GEN) [id number] 03:24:00 Test Item Value Reference Range Interpretation Comments [facility] HIV 4th GEN (test Negative (08/11/15 9:24 code = CDC HIV 4th PM) GEN) [id number] 03:24:00 Test Item Value Reference Range Interpretation Comments CDC HIV 4th GEN (test Negative (08/11/15 9:24 code = CDC HIV 4th PM) GEN) [id number] 03:24:00 Test Item Value Reference Range Interpretation Comments [facility] HIV 4th GEN (test Negative (08/11/15 9:24 code = CDC HIV 4th PM) GEN) [id number] 03:24:00 Test Item Value Reference Range Interpretation Comments CDC HIV 4th GEN (test Negative (08/11/15 9:24 code = CDC HIV 4th PM) GEN) [facility] [id number] 16:24:00 Test Item Value Reference Range Interpretation Comments UA Bacteria (test code = None Seen (04/30/15 UA Bacteria) 10:24 AM) [facility] AND [id number] 16:24:00 Test Item Value Reference Range Interpretation Comments UA RBC (test code = 0-2 /HPF See_Comment [Automa regi message] The UA RBC) system which ge nerated this result tra nsmitted reference range : <=2. The reference range was not used to interpr et this result as nela l/abnormal. [facility] [id number] 16:24:00 Test Item Value Reference Range Interpretation Comments UA Sq Epi (test code = UA Sq Epi) Rare /LPF [facility] AND [id number] 16:24:00 Test Item Value Reference Range Interpretation Comments UA WBC (test code = UA WBC) 3-5 /HPF [facility] AND [id number] 16:24:00 Test Item Value Reference Range Interpretation Comments UA Leuk Est (test Moderate *ABN*(04/30/15 code = UA Leuk Est) 10:24 AM) [facility] AND [id number] 16:24:00 Test Item Value Reference Range Interpretation Comments UA Blood (test code = Trace *ABN*(04/30/15 UA Blood) 10:24 AM) [facility] AND [id number] 16:24:00 Test Item Value Reference Range Interpretation Comments UA Bili (test code = Negative *NA*(04/30/15 UA Bili) 10:24 AM) [facility] AND [id number] 16:24:00 Test Item Value Reference Range Interpretation Comments UA Urobilinogen (test code = UA 0.2 0.1-1.0 Urobilinogen) [facility] AND [id number] 16:24:00 Test Item Value Reference Range Interpretation Comments UA Nitrite (test code Negative (04/30/15 10:24 = UA Nitrite) AM) [facility] AND [id number] 16:24:00 Test Item Value Reference Range Interpretation Comments UA Ketones (test code Negative *NA*(04/30/15 = UA Ketones) 10:24 AM) [facility] AND [id number] 16:24:00 Test Item Value Reference Range Interpretation Comments UA Glucose (test code Negative (04/30/15 10:24 = UA Glucose) AM) [facility] AND [id number] 16:24:00 Test Item Value Reference Range Interpretation Comments UA pH (test code = UA pH) 8.0 1 5.0-8.0 [facility] AND [id number] 16:24:00 Test Item Value Reference Range Interpretation Comments UA Protein (test code Negative (04/30/15 10:24 = UA Protein) AM) [facility] AND [id number] 16:24:00 Test Item Value Reference Range Interpretation Comments UA Turbidity (test code = Clear (04/30/15 10:24 UA Turbidity) AM) [facility] AND [id number] 16:24:00 Test Item Value Reference Range Interpretation Comments UA Spec Grav (test code = UA Spec 1.010 1 Grav) [facility] AND [id number] 16:24:00 Test Item Value Reference Range Interpretation Comments UA Color (test code = Yellow *NA*(04/30/15 UA Color) 10:24 AM) [facility] AND [id number] 16:24:00 Test Item Value Reference Range Interpretation Comments UA Bacteria (test code = None Seen (04/30/15 UA Bacteria) 10:24 AM) [facility] AND [id number] 16:24:00 Test Item Value Reference Range Interpretation Comments UA RBC (test code = 0-2 /HPF See_Comment [Automa regi message] The UA RBC) system which ge nerated this result tra nsmitted reference range : <=2. The reference range was not used to interpr et this result as nela l/abnormal. [facility] AND [id number] 16:24:00 Test Item Value Reference Range Interpretation Comments UA Sq Epi (test code = UA Sq Epi) Rare /LPF [facility] AND [id number] 16:24:00 Test Item Value Reference Range Interpretation Comments UA WBC (test code = UA WBC) 3-5 /HPF [facility] AND [id number] 16:24:00 Test Item Value Reference Range Interpretation Comments UA Leuk Est (test Moderate *ABN*(04/30/15 code = UA Leuk Est) 10:24 AM) [facility] AND [id number] 16:24:00 Test Item Value Reference Range Interpretation Comments UA Blood (test code = Trace *ABN*(04/30/15 UA Blood) 10:24 AM) [facility] AND [id number] 16:24:00 Test Item Value Reference Range Interpretation Comments UA Bili (test code = Negative *NA*(04/30/15 UA Bili) 10:24 AM) [facility] AND [id number] 16:24:00 Test Item Value Reference Range Interpretation Comments UA Urobilinogen (test code = UA 0.2 0.1-1.0 Urobilinogen) [facility] AND [id number] 16:24:00 Test Item Value Reference Range Interpretation Comments UA Nitrite (test code Negative (04/30/15 10:24 = UA Nitrite) AM) [facility] AND [id number] 16:24:00 Test Item Value Reference Range Interpretation Comments UA Ketones (test code Negative *NA*(04/30/15 = UA Ketones) 10:24 AM) [facility] AND [id number] 16:24:00 Test Item Value Reference Range Interpretation Comments UA Glucose (test code Negative (04/30/15 10:24 = UA Glucose) AM) [facility] AND [id number] 16:24:00 Test Item Value Reference Range Interpretation Comments UA pH (test code = UA pH) 8.0 1 5.0-8.0 [facility] AND [id number] 16:24:00 Test Item Value Reference Range Interpretation Comments UA Protein (test code Negative (04/30/15 10:24 = UA Protein) AM) [facility] AND [id number] 16:24:00 Test Item Value Reference Range Interpretation Comments UA Turbidity (test code = Clear (04/30/15 10:24 UA Turbidity) AM) [facility] AND [id number] 16:24:00 Test Item Value Reference Range Interpretation Comments UA Spec Grav (test code = UA Spec 1.010 1 Grav) [facility] AND [id number] 16:24:00 Test Item Value Reference Range Interpretation Comments UA Color (test code = Yellow *NA*(04/30/15 UA Color) 10:24 AM) [facility] AND [id number] 16:24:00 Test Item Value Reference Range Interpretation Comments UA Bacteria (test code = None Seen (04/30/15 UA Bacteria) 10:24 AM) [facility] AND [id number] 16:24:00 Test Item Value Reference Range Interpretation Comments UA RBC (test code = 0-2 /HPF See_Comment [Automa regi message] The UA RBC) system which ge nerated this result tra nsmitted reference range : <=2. The reference range was not used to interpr et this result as nela l/abnormal. [facility] AND [id number] 16:24:00 Test Item Value Reference Range Interpretation Comments UA Sq Epi (test code = UA Sq Epi) Rare /LPF [facility] AND [id number] 16:24:00 Test Item Value Reference Range Interpretation Comments UA WBC (test code = UA WBC) 3-5 /HPF [facility] AND [id number] 16:24:00 Test Item Value Reference Range Interpretation Comments UA Leuk Est (test Moderate *ABN*(04/30/15 code = UA Leuk Est) 10:24 AM) [facility] AND [id number] 16:24:00 Test Item Value Reference Range Interpretation Comments UA Blood (test code = Trace *ABN*(04/30/15 UA Blood) 10:24 AM) [facility] AND [id number] 16:24:00 Test Item Value Reference Range Interpretation Comments UA Bili (test code = Negative *NA*(04/30/15 UA Bili) 10:24 AM) [facility] AND [id number] 16:24:00 Test Item Value Reference Range Interpretation Comments UA Urobilinogen (test code = UA 0.2 0.1-1.0 Urobilinogen) [facility] AND [id number] 16:24:00 Test Item Value Reference Range Interpretation Comments UA Nitrite (test code Negative (04/30/15 10:24 = UA Nitrite) AM) [facility] AND [id number] 16:24:00 Test Item Value Reference Range Interpretation Comments UA Ketones (test code Negative *NA*(04/30/15 = UA Ketones) 10:24 AM) [facility] AND [id number] 16:24:00 Test Item Value Reference Range Interpretation Comments UA Glucose (test code Negative (04/30/15 10:24 = UA Glucose) AM) [facility] AND [id number] 16:24:00 Test Item Value Reference Range Interpretation Comments UA pH (test code = UA pH) 8.0 1 5.0-8.0 [facility] AND [id number] 16:24:00 Test Item Value Reference Range Interpretation Comments UA Protein (test code Negative (04/30/15 10:24 = UA Protein) AM) [facility] AND [id number] 16:24:00 Test Item Value Reference Range Interpretation Comments UA Turbidity (test code = Clear (04/30/15 10:24 UA Turbidity) AM) [facility] AND [id number] 16:24:00 Test Item Value Reference Range Interpretation Comments UA Spec Grav (test code = UA Spec 1.010 1 Grav) [facility] AND [id number] 16:24:00 Test Item Value Reference Range Interpretation Comments UA Color (test code = Yellow *NA*(04/30/15 UA Color) 10:24 AM) [facility] AND [id number] 16:24:00 Test Item Value Reference Range Interpretation Comments UA Bacteria (test code = None Seen (04/30/15 UA Bacteria) 10:24 AM) [facility] AND [id number] 16:24:00 Test Item Value Reference Range Interpretation Comments UA RBC (test code = 0-2 /HPF See_Comment [Automa regi message] The UA RBC) system which ge nerated this result tra nsmitted reference range : <=2. The reference range was not used to interpr et this result as nela l/abnormal. [facility] AND [id number] 16:24:00 Test Item Value Reference Range Interpretation Comments UA Sq Epi (test code = UA Sq Epi) Rare /LPF [facility] AND [id number] 16:24:00 Test Item Value Reference Range Interpretation Comments UA WBC (test code = UA WBC) 3-5 /HPF [facility] AND [id number] 16:24:00 Test Item Value Reference Range Interpretation Comments UA Leuk Est (test Moderate *ABN*(04/30/15 code = UA Leuk Est) 10:24 AM) [facility] AND [id number] 16:24:00 Test Item Value Reference Range Interpretation Comments UA Blood (test code = Trace *ABN*(04/30/15 UA Blood) 10:24 AM) [facility] AND [id number] 16:24:00 Test Item Value Reference Range Interpretation Comments UA Bili (test code = Negative *NA*(04/30/15 UA Bili) 10:24 AM) [facility] AND [id number] 16:24:00 Test Item Value Reference Range Interpretation Comments UA Urobilinogen (test code = UA 0.2 0.1-1.0 Urobilinogen) [facility] AND [id number] 16:24:00 Test Item Value Reference Range Interpretation Comments UA Nitrite (test code Negative (04/30/15 10:24 = UA Nitrite) AM) [facility] AND [id number] 16:24:00 Test Item Value Reference Range Interpretation Comments UA Ketones (test code Negative *NA*(04/30/15 = UA Ketones) 10:24 AM) [facility] AND [id number] 16:24:00 Test Item Value Reference Range Interpretation Comments UA Glucose (test code Negative (04/30/15 10:24 = UA Glucose) AM) [facility] AND [id number] 16:24:00 Test Item Value Reference Range Interpretation Comments UA pH (test code = UA pH) 8.0 1 5.0-8.0 [facility] AND [id number] 16:24:00 Test Item Value Reference Range Interpretation Comments UA Protein (test code Negative (04/30/15 10:24 = UA Protein) AM) [facility] AND [id number] 16:24:00 Test Item Value Reference Range Interpretation Comments UA Turbidity (test code = Clear (04/30/15 10:24 UA Turbidity) AM) [facility] AND [id number] 16:24:00 Test Item Value Reference Range Interpretation Comments UA Spec Grav (test code = UA Spec 1.010 1 Grav) [facility] AND [id number] 16:24:00 Test Item Value Reference Range Interpretation Comments UA Color (test code = Yellow *NA*(04/30/15 UA Color) 10:24 AM) [facility] AND [id number] 16:24:00 Test Item Value Reference Range Interpretation Comments UA Bacteria (test code = None Seen (04/30/15 UA Bacteria) 10:24 AM) [facility] AND [id number] 16:24:00 Test Item Value Reference Range Interpretation Comments UA RBC (test code = 0-2 /HPF See_Comment [Automa regi message] The UA RBC) system which ge nerated this result tra nsmitted reference range : <=2. The reference range was not used to interpr et this result as nela l/abnormal. [facility] AND [id number] 16:24:00 Test Item Value Reference Range Interpretation Comments UA Sq Epi (test code = UA Sq Epi) Rare /LPF [facility] AND [id number] 16:24:00 Test Item Value Reference Range Interpretation Comments UA WBC (test code = UA WBC) 3-5 /HPF [facility] AND [id number] 16:24:00 Test Item Value Reference Range Interpretation Comments UA Leuk Est (test Moderate *ABN*(04/30/15 code = UA Leuk Est) 10:24 AM) [facility] AND [id number] 16:24:00 Test Item Value Reference Range Interpretation Comments UA Blood (test code = Trace *ABN*(04/30/15 UA Blood) 10:24 AM) [facility] AND [id number] 16:24:00 Test Item Value Reference Range Interpretation Comments UA Bili (test code = Negative *NA*(04/30/15 UA Bili) 10:24 AM) [facility] AND [id number] 16:24:00 Test Item Value Reference Range Interpretation Comments UA Urobilinogen (test code = UA 0.2 0.1-1.0 Urobilinogen) [facility] AND [id number] 16:24:00 Test Item Value Reference Range Interpretation Comments UA Nitrite (test code Negative (04/30/15 10:24 = UA Nitrite) AM) [facility] AND [id number] 16:24:00 Test Item Value Reference Range Interpretation Comments UA Ketones (test code Negative *NA*(04/30/15 = UA Ketones) 10:24 AM) [facility] AND [id number] 16:24:00 Test Item Value Reference Range Interpretation Comments UA Glucose (test code Negative (04/30/15 10:24 = UA Glucose) AM) [facility] AND [id number] 16:24:00 Test Item Value Reference Range Interpretation Comments UA pH (test code = UA pH) 8.0 1 5.0-8.0 [facility] [id number] 16:24:00 Test Item Value Reference Range Interpretation Comments UA Protein (test code Negative (04/30/15 10:24 = UA Protein) AM) [facility] [id number] 16:24:00 Test Item Value Reference Range Interpretation Comments UA Turbidity (test code = Clear (04/30/15 10:24 UA Turbidity) AM) [facility] AND [id number] 16:24:00 Test Item Value Reference Range Interpretation Comments UA Spec Grav (test code = UA Spec 1.010 1 Grav) [facility] AND [id number] 16:24:00 Test Item Value Reference Range Interpretation Comments UA Color (test code = Yellow *NA*(04/30/15 UA Color) 10:24 AM) [facility] AND [id number] 16:24:00 Test Item Value Reference Range Interpretation Comments UA Bacteria (test code = None Seen (04/30/15 UA Bacteria) 10:24 AM) [facility] AND [id number] 16:24:00 Test Item Value Reference Range Interpretation Comments UA RBC (test code = 0-2 /HPF See_Comment [Automa regi message] The UA RBC) system which ge nerated this result tra nsmitted reference range : <=2. The reference range was not used to interpr et this result as nela l/abnormal. [facility] AND [id number] 16:24:00 Test Item Value Reference Range Interpretation Comments UA Sq Epi (test code = UA Sq Epi) Rare /LPF [facility] AND [id number] 16:24:00 Test Item Value Reference Range Interpretation Comments UA WBC (test code = UA WBC) 3-5 /HPF [facility] AND [id number] 16:24:00 Test Item Value Reference Range Interpretation Comments UA Leuk Est (test Moderate *ABN*(04/30/15 code = UA Leuk Est) 10:24 AM) [facility] AND [id number] 16:24:00 Test Item Value Reference Range Interpretation Comments UA Blood (test code = Trace *ABN*(04/30/15 UA Blood) 10:24 AM) [facility] AND [id number] 16:24:00 Test Item Value Reference Range Interpretation Comments UA Bili (test code = Negative *NA*(04/30/15 UA Bili) 10:24 AM) [facility] AND [id number] 16:24:00 Test Item Value Reference Range Interpretation Comments UA Urobilinogen (test code = UA 0.2 0.1-1.0 Urobilinogen) [facility] AND [id number] 16:24:00 Test Item Value Reference Range Interpretation Comments UA Nitrite (test code Negative (04/30/15 10:24 = UA Nitrite) AM) [facility] AND [id number] 16:24:00 Test Item Value Reference Range Interpretation Comments UA Ketones (test code Negative *NA*(04/30/15 = UA Ketones) 10:24 AM) [facility] AND [id number] 16:24:00 Test Item Value Reference Range Interpretation Comments UA Glucose (test code Negative (04/30/15 10:24 = UA Glucose) AM) [facility] AND [id number] 16:24:00 Test Item Value Reference Range Interpretation Comments UA pH (test code = UA pH) 8.0 1 5.0-8.0 [facility] AND [id number] 16:24:00 Test Item Value Reference Range Interpretation Comments UA Protein (test code Negative (04/30/15 10:24 = UA Protein) AM) [facility] AND [id number] 16:24:00 Test Item Value Reference Range Interpretation Comments UA Turbidity (test code = Clear (04/30/15 10:24 UA Turbidity) AM) [facility] AND [id number] 16:24:00 Test Item Value Reference Range Interpretation Comments UA Spec Grav (test code = UA Spec 1.010 1 Grav) [facility] AND [id number] 16:24:00 Test Item Value Reference Range Interpretation Comments UA Color (test code = Yellow *NA*(04/30/15 UA Color) 10:24 AM) [facility] AND [id number] 16:24:00 Test Item Value Reference Range Interpretation Comments UA Bacteria (test code = None Seen (04/30/15 UA Bacteria) 10:24 AM) [facility] AND [id number] 16:24:00 Test Item Value Reference Range Interpretation Comments UA RBC (test code = 0-2 /HPF See_Comment [Automa regi message] The UA RBC) system which ge nerated this result tra nsmitted reference range : <=2. The reference range was not used to interpr et this result as nela l/abnormal. [facility] AND [id number] 16:24:00 Test Item Value Reference Range Interpretation Comments UA Sq Epi (test code = UA Sq Epi) Rare /LPF [facility] AND [id number] 16:24:00 Test Item Value Reference Range Interpretation Comments UA WBC (test code = UA WBC) 3-5 /HPF [facility] AND [id number] 16:24:00 Test Item Value Reference Range Interpretation Comments UA Leuk Est (test Moderate *ABN*(04/30/15 code = UA Leuk Est) 10:24 AM) [facility] AND [id number] 16:24:00 Test Item Value Reference Range Interpretation Comments UA Blood (test code = Trace *ABN*(04/30/15 UA Blood) 10:24 AM) [facility] AND [id number] 16:24:00 Test Item Value Reference Range Interpretation Comments UA Bili (test code = Negative *NA*(04/30/15 UA Bili) 10:24 AM) [facility] AND [id number] 16:24:00 Test Item Value Reference Range Interpretation Comments UA Urobilinogen (test code = UA 0.2 0.1-1.0 Urobilinogen) [facility] AND [id number] 16:24:00 Test Item Value Reference Range Interpretation Comments UA Nitrite (test code Negative (04/30/15 10:24 = UA Nitrite) AM) [facility] AND [id number] 16:24:00 Test Item Value Reference Range Interpretation Comments UA Ketones (test code Negative *NA*(04/30/15 = UA Ketones) 10:24 AM) [facility] AND [id number] 16:24:00 Test Item Value Reference Range Interpretation Comments UA Glucose (test code Negative (04/30/15 10:24 = UA Glucose) AM) [facility] AND [id number] 16:24:00 Test Item Value Reference Range Interpretation Comments UA pH (test code = UA pH) 8.0 1 5.0-8.0 [facility] AND [id number] 16:24:00 Test Item Value Reference Range Interpretation Comments UA Protein (test code Negative (04/30/15 10:24 = UA Protein) AM) [facility] AND [id number] 16:24:00 Test Item Value Reference Range Interpretation Comments UA Turbidity (test code = Clear (04/30/15 10:24 UA Turbidity) AM) [facility] AND [id number] 16:24:00 Test Item Value Reference Range Interpretation Comments UA Spec Grav (test code = UA Spec 1.010 1 Grav) [facility] AND [id number] 16:24:00 Test Item Value Reference Range Interpretation Comments UA Color (test code = Yellow *NA*(04/30/15 UA Color) 10:24 AM) [facility]2015-11-07 11:53:00 Test Item Value Reference Range Interpretation Comments Alk Phos (test code = Alk Phos) 82 39-136 [facility]2015-11-07 11:53:00 Test Item Value Reference Range Interpretation Comments Bili Total (test code = Bili Total) 1.0 0.2-1.3 [facility]2015-11-07 11:53:00 Test Item Value Reference Range Interpretation Comments AST (test code = AST) 14 See_Comment [Auto mated message] The system which ge nerated this result transmit regi reference range : <=37. The reference range was not used to interpr et this result as nela l/abnormal. [facility]2015-11-07 11:53:00 Test Item Value Reference Range Interpretation Comments ALT (test code = ALT) 26 See_Comment [Auto mated message] The system which ge nerated this result transmit regi reference range : <=65. The reference range was not used to interpr et this result as nela l/abnormal. [facility]2015-11-07 11:53:00 Test Item Value Reference Range Interpretation Comments eGFR (test code = eGFR) 127 [facility]2015-11-07 11:53:00 Test Item Value Reference Range Interpretation Comments Glucose Lvl (test code = Glucose Lvl) 109 70-99 [facility]2015-11-07 11:53:00 Test Item Value Reference Range Interpretation Comments BUN (test code = BUN) 6 7-22 [facility]2015-11-07 11:53:00 Test Item Value Reference Range Interpretation Comments Total Protein (test code = Total 7.0 6.4-8.4 Protein) [facility]2015-11-07 11:53:00 Test Item Value Reference Range Interpretation Comments Potassium Lvl (test code = Potassium 3.7 3.5-5.1 Lvl) [facility]2015-11-07 11:53:00 Test Item Value Reference Range Interpretation Comments Sodium Lvl (test code = Sodium Lvl) 139 135-145 [facility]2015-11-07 11:53:00 Test Item Value Reference Range Interpretation Comments Creatinine Lvl (test code = Creatinine 0.58 0.50-1.40 Lvl) [facility]2015-11-07 11:53:00 Test Item Value Reference Range Interpretation Comments Chloride Lvl (test code = Chloride Lvl) 105 95-109 [facility]2015-11-07 11:53:00 Test Item Value Reference Range Interpretation Comments CO2 (test code = CO2) 27 24-32 [facility]2015-11-07 11:53:00 Test Item Value Reference Range Interpretation Comments Calcium Lvl (test code = Calcium Lvl) 7.7 8.5-10.5 [facility]2015-11-07 11:53:00 Test Item Value Reference Range Interpretation Comments Albumin Lvl (test code = Albumin Lvl) 3.1 3.5-5.0 [facility]2015-11-07 11:53:00 Test Item Value Reference Range Interpretation Comments AGAP (test code = AGAP) 10.7 10.0-20.0 [facility]2015-11-07 11:53:00 Test Item Value Reference Range Interpretation Comments B/C Ratio (test code = B/C Ratio) 10 6-25 [facility]2015-11-07 11:53:00 Test Item Value Reference Range Interpretation Comments Globulin (test code = Globulin) 3.9 2.0-4.0 [place] 672355-11-07 11:53:00 Test Item Value Reference Range Interpretation Comments A/G Ratio (test code = A/G Ratio) 0.8 0.7-1.6 [facility]KhysrvpZOPPDBEJRZ9961-75-82 11:53:00 Test Item Value Reference Range Interpretation Comments MPV (test code = MPV) 8.7 7.4-10.4 [facility]stIjgywpyVSNHZJCLDZ5653-84-68 11:53:00 Test Item Value Reference Range Interpretation Comments WBC (test code = WBC) 14.6 3.7-10.4 [facility]stNzblvigSVGESMDNWN7624-77-68 11:53:00 Test Item Value Reference Range Interpretation Comments RBC (test code = RBC) 3.80 4.20-5.40 [facility]stFgnugyiHDWBTINDBI5025-75-40 11:53:00 Test Item Value Reference Range Interpretation Comments Hgb (test code = Hgb) 11.4 12.0-16.0 [facility]stIfyifhzBPWDKMIEXA9657-42-22 11:53:00 Test Item Value Reference Range Interpretation Comments MCH (test code = MCH) 29.9 pg 27.0-31.0 [facility]stKiqrbcmUQTLCBKUEX4976-55-61 11:53:00 Test Item Value Reference Range Interpretation Comments Platelet (test code = Platelet) 270 133-450 [facility]stZcsdqpcSNHUWRUURB4041-94-78 11:53:00 Test Item Value Reference Range Interpretation Comments RDW (test code = RDW) 13.1 11.5-14.5 [facility]stVvpmuwgLCXWQIQRRD4095-53-57 11:53:00 Test Item Value Reference Range Interpretation Comments MCHC (test code = MCHC) 33.2 32.0-36.0 [facility]stIysvbryGXENZAWGLR9507-67-82 11:53:00 Test Item Value Reference Range Interpretation Comments MCV (test code = MCV) 90.2 80.0-98.0 [facility]stKelelpkQQSBGUBSKG9680-20-45 11:53:00 Test Item Value Reference Range Interpretation Comments Hct (test code = Hct) 34.3 36.0-48.0 [facility]stQrrygjhJXNAHHKVIH4639-68-05 11:53:00 Test Item Value Reference Range Interpretation Comments Eosinophils # (test code 0.0 See_Comment [A utomated message] The = Eosinophils #) system whic h generated this result tra nsmitted reference range : <=0.5. The reference r kenneth was not used to int erpret this result as normal/abnormal . [facility]stCsylqkhDCSLXJFHOF6632-52-55 11:53:00 Test Item Value Reference Range Interpretation Comments Monocytes # (test code 1.3 See_Comment [Aut omated message] The = Monocytes #) system which generated this result tra nsmitted reference range : <=0.8. The reference r kenneth was not used to int erpret this result as normal/abnormal . [facility]stNychjmwURKRELPRML6435-95-54 11:53:00 Test Item Value Reference Range Interpretation Comments Lymphocytes # (test code = Lymphocytes 1.7 1.0-5.5 #) [facility]stYseidmhEFTKJBUKWQ5000-40-93 11:53:00 Test Item Value Reference Range Interpretation Comments Eosinophils (test code = 0.1 See_Comment [A utomated message] The Eosinophils) system which ge nerated this result tra nsmitted reference range : <=4.0. The reference r kenneth was not used to int erpret this result as normal/abnormal . [facility]stYxdvowaEIRHRVXBZE8548-55-30 11:53:00 Test Item Value Reference Range Interpretation Comments Basophils # (test code 0.0 See_Comment [Aut omated message] The = Basophils #) system which generated this result tra nsmitted reference range : <=0.2. The reference r kenneth was not used to int erpret this result as normal/abnormal . [facility]stPqqlurhOESRBGQQOJ2400-85-14 11:53:00 Test Item Value Reference Range Interpretation Comments Monocytes (test code = Monocytes) 9.0 2.0-12.0 [facility]stVddbzhnHXORESDILA7653-55-67 11:53:00 Test Item Value Reference Range Interpretation Comments Lymphocytes (test code = Lymphocytes) 11.9 20.0-40.0 [facility]stEidpozkIFQAMHQZWO6585-77-70 11:53:00 Test Item Value Reference Range Interpretation Comments Segs-Bands # (test code = Segs-Bands #) 11.5 1.5-8.1 [facility]stMjwhssyKBJJMNEOFX5031-46-05 11:53:00 Test Item Value Reference Range Interpretation Comments Basophils (test code = 0.2 See_Comment [Aut omated message] The Basophils) system which ge nerated this result tra nsmitted reference range : <=1.0. The reference r kenneth was not used to int erpret this result as normal/abnormal . [facility]stHouliypUNMOWYVDCK3028-92-44 11:53:00 Test Item Value Reference Range Interpretation Comments Segs (test code = Segs) 78.8 45.0-75.0 [place] 429475-11-07 11:53:00 Test Item Value Reference Range Interpretation Comments Plt Morph (test code = Normal (04/29/15 5:53 Plt Morph) AM) [facility]2015-11-07 11:53:00 Test Item Value Reference Range Interpretation Comments Alk Phos (test code = Alk Phos) 82 39-136 [facility]2015-11-07 11:53:00 Test Item Value Reference Range Interpretation Comments Bili Total (test code = Bili Total) 1.0 0.2-1.3 [facility]2015-11-07 11:53:00 Test Item Value Reference Range Interpretation Comments AST (test code = AST) 14 See_Comment [Auto mated message] The system which ge nerated this result transmit regi reference range : <=37. The reference range was not used to interpr et this result as nela l/abnormal. [facility]2015-11-07 11:53:00 Test Item Value Reference Range Interpretation Comments ALT (test code = ALT) 26 See_Comment [Auto mated message] The system which ge nerated this result transmit regi reference range : <=65. The reference range was not used to interpr et this result as nela l/abnormal. [facility]2015-11-07 11:53:00 Test Item Value Reference Range Interpretation Comments eGFR (test code = eGFR) 127 [place] 672355-11-07 11:53:00 Test Item Value Reference Range Interpretation Comments Glucose Lvl (test code = Glucose Lvl) 109 70-99 [facility]2015-11-07 11:53:00 Test Item Value Reference Range Interpretation Comments BUN (test code = BUN) 6 7-22 [facility]2015-11-07 11:53:00 Test Item Value Reference Range Interpretation Comments Total Protein (test code = Total 7.0 6.4-8.4 Protein) [facility]2015-11-07 11:53:00 Test Item Value Reference Range Interpretation Comments Potassium Lvl (test code = Potassium 3.7 3.5-5.1 Lvl) [facility]2015-11-07 11:53:00 Test Item Value Reference Range Interpretation Comments Sodium Lvl (test code = Sodium Lvl) 139 135-145 [facility]2015-11-07 11:53:00 Test Item Value Reference Range Interpretation Comments Creatinine Lvl (test code = Creatinine 0.58 0.50-1.40 Lvl) [facility]2015-11-07 11:53:00 Test Item Value Reference Range Interpretation Comments Chloride Lvl (test code = Chloride Lvl) 105 95-109 [facility]2015-11-07 11:53:00 Test Item Value Reference Range Interpretation Comments CO2 (test code = CO2) 27 24-32 [facility]2015-11-07 11:53:00 Test Item Value Reference Range Interpretation Comments Calcium Lvl (test code = Calcium Lvl) 7.7 8.5-10.5 [facility]2015-11-07 11:53:00 Test Item Value Reference Range Interpretation Comments Albumin Lvl (test code = Albumin Lvl) 3.1 3.5-5.0 [facility]2015-11-07 11:53:00 Test Item Value Reference Range Interpretation Comments AGAP (test code = AGAP) 10.7 10.0-20.0 [facility]2015-11-07 11:53:00 Test Item Value Reference Range Interpretation Comments B/C Ratio (test code = B/C Ratio) 10 6-25 [facility]2015-11-07 11:53:00 Test Item Value Reference Range Interpretation Comments Globulin (test code = Globulin) 3.9 2.0-4.0 [facility]2015-11-07 11:53:00 Test Item Value Reference Range Interpretation Comments A/G Ratio (test code = A/G Ratio) 0.8 0.7-1.6 [facility]stCpdxbueVJTTHKXPYI6371-77-16 11:53:00 Test Item Value Reference Range Interpretation Comments MPV (test code = MPV) 8.7 7.4-10.4 [facility]stKnsyjveIUNEGEDJRE3422-42-76 11:53:00 Test Item Value Reference Range Interpretation Comments WBC (test code = WBC) 14.6 3.7-10.4 [facility]stYdfxsneWYMNFGQPOE1206-23-06 11:53:00 Test Item Value Reference Range Interpretation Comments RBC (test code = RBC) 3.80 4.20-5.40 [facility]stYqvkanfVYOFXAYIMS7881-49-27 11:53:00 Test Item Value Reference Range Interpretation Comments Hgb (test code = Hgb) 11.4 12.0-16.0 [facility]stDdqjgmhRFWUFGAFLY5403-84-60 11:53:00 Test Item Value Reference Range Interpretation Comments MCH (test code = MCH) 29.9 pg 27.0-31.0 [facility]stMawnqkuMLOUWUPKNX3146-35-48 11:53:00 Test Item Value Reference Range Interpretation Comments Platelet (test code = Platelet) 270 133-450 [facility]stSmibpcgDMUQAPLVJD0855-68-21 11:53:00 Test Item Value Reference Range Interpretation Comments RDW (test code = RDW) 13.1 11.5-14.5 [facility]stNcikaeqAKXEHHOKWF8339-49-00 11:53:00 Test Item Value Reference Range Interpretation Comments MCHC (test code = MCHC) 33.2 32.0-36.0 [facility]stFvnznegXVHYKAACMD8381-84-82 11:53:00 Test Item Value Reference Range Interpretation Comments MCV (test code = MCV) 90.2 80.0-98.0 [facility]stThkvevzDQJINEAITU3236-12-87 11:53:00 Test Item Value Reference Range Interpretation Comments Hct (test code = Hct) 34.3 36.0-48.0 [facility]stKkdtxkqYCXGTCRHBF2234-68-76 11:53:00 Test Item Value Reference Range Interpretation Comments Eosinophils # (test code 0.0 See_Comment [A utomated message] The = Eosinophils #) system whic h generated this result tra nsmitted reference range : <=0.5. The reference r kenneth was not used to int erpret this result as normal/abnormal . [facility]stWopukqmGZCHRZFFOX4324-07-77 11:53:00 Test Item Value Reference Range Interpretation Comments Monocytes # (test code 1.3 See_Comment [Aut omated message] The = Monocytes #) system which generated this result tra nsmitted reference range : <=0.8. The reference r kenneth was not used to int erpret this result as normal/abnormal . [facility]stVeerpcbPXKWPBSFAM7523-21-13 11:53:00 Test Item Value Reference Range Interpretation Comments Lymphocytes # (test code = Lymphocytes 1.7 1.0-5.5 #) [facility]stYsnlvqkHLERKAROJI7777-42-49 11:53:00 Test Item Value Reference Range Interpretation Comments Eosinophils (test code = 0.1 See_Comment [A utomated message] The Eosinophils) system which ge nerated this result tra nsmitted reference range : <=4.0. The reference r kenneth was not used to int erpret this result as normal/abnormal . [facility]crestLmalymaTUVEFPUDTG8969-16-04 11:53:00 Test Item Value Reference Range Interpretation Comments Basophils # (test code 0.0 See_Comment [Aut omated message] The = Basophils #) system which generated this result tra nsmitted reference range : <=0.2. The reference r kenneth was not used to int erpret this result as normal/abnormal . [facility]stIaqumnuXXMMPDCAJH0432-30-23 11:53:00 Test Item Value Reference Range Interpretation Comments Monocytes (test code = Monocytes) 9.0 2.0-12.0 [facility]stUvussckBQMXJFKCIG5116-97-40 11:53:00 Test Item Value Reference Range Interpretation Comments Lymphocytes (test code = Lymphocytes) 11.9 20.0-40.0 [facility]stHzghabbMMOZDOTOKO4740-14-70 11:53:00 Test Item Value Reference Range Interpretation Comments Segs-Bands # (test code = Segs-Bands #) 11.5 1.5-8.1 [facility]stHcwstolCXCDTZXNRY8989-43-34 11:53:00 Test Item Value Reference Range Interpretation Comments Basophils (test code = 0.2 See_Comment [Aut omated message] The Basophils) system which ge nerated this result tra nsmitted reference range : <=1.0. The reference r kenneth was not used to int erpret this result as normal/abnormal . [facility]stLytfgmaEHOQIHHUPN9039-85-88 11:53:00 Test Item Value Reference Range Interpretation Comments Segs (test code = Segs) 78.8 45.0-75.0 [facility]stXjxvljuMHCNVWPUOS4480-27-42 11:53:00 Test Item Value Reference Range Interpretation Comments Plt Morph (test code = Normal (04/29/15 5:53 Plt Morph) AM) [facility]2015-11-07 11:53:00 Test Item Value Reference Range Interpretation Comments Alk Phos (test code = Alk Phos) 82 39-136 [facility]2015-11-07 11:53:00 Test Item Value Reference Range Interpretation Comments Bili Total (test code = Bili Total) 1.0 0.2-1.3 [facility]2015-11-07 11:53:00 Test Item Value Reference Range Interpretation Comments AST (test code = AST) 14 See_Comment [Auto mated message] The system which ge nerated this result transmit regi reference range : <=37. The reference range was not used to interpr et this result as nela l/abnormal. [facility]2015-11-07 11:53:00 Test Item Value Reference Range Interpretation Comments ALT (test code = ALT) 26 See_Comment [Auto mated message] The system which ge nerated this result transmit regi reference range : <=65. The reference range was not used to interpr et this result as nela l/abnormal. [facility]2015-11-07 11:53:00 Test Item Value Reference Range Interpretation Comments eGFR (test code = eGFR) 127 [facility]2015-11-07 11:53:00 Test Item Value Reference Range Interpretation Comments Glucose Lvl (test code = Glucose Lvl) 109 70-99 [facility]2015-11-07 11:53:00 Test Item Value Reference Range Interpretation Comments BUN (test code = BUN) 6 7-22 [facility]2015-11-07 11:53:00 Test Item Value Reference Range Interpretation Comments Total Protein (test code = Total 7.0 6.4-8.4 Protein) [facility]2015-11-07 11:53:00 Test Item Value Reference Range Interpretation Comments Potassium Lvl (test code = Potassium 3.7 3.5-5.1 Lvl) [facility]2015-11-07 11:53:00 Test Item Value Reference Range Interpretation Comments Sodium Lvl (test code = Sodium Lvl) 139 135-145 [facility]2015-11-07 11:53:00 Test Item Value Reference Range Interpretation Comments Creatinine Lvl (test code = Creatinine 0.58 0.50-1.40 Lvl) [facility]2015-11-07 11:53:00 Test Item Value Reference Range Interpretation Comments Chloride Lvl (test code = Chloride Lvl) 105 95-109 [facility]2015-11-07 11:53:00 Test Item Value Reference Range Interpretation Comments CO2 (test code = CO2) 27 24-32 [facility]2015-11-07 11:53:00 Test Item Value Reference Range Interpretation Comments Calcium Lvl (test code = Calcium Lvl) 7.7 8.5-10.5 [place] 672355-11-07 11:53:00 Test Item Value Reference Range Interpretation Comments Albumin Lvl (test code = Albumin Lvl) 3.1 3.5-5.0 [facility]2015-11-07 11:53:00 Test Item Value Reference Range Interpretation Comments AGAP (test code = AGAP) 10.7 10.0-20.0 [facility]2015-11-07 11:53:00 Test Item Value Reference Range Interpretation Comments B/C Ratio (test code = B/C Ratio) 10 6-25 [facility]2015-11-07 11:53:00 Test Item Value Reference Range Interpretation Comments Globulin (test code = Globulin) 3.9 2.0-4.0 [facility]2015-11-07 11:53:00 Test Item Value Reference Range Interpretation Comments A/G Ratio (test code = A/G Ratio) 0.8 0.7-1.6 [facility]stPlflqymUNKZTQFWMC9894-12-98 11:53:00 Test Item Value Reference Range Interpretation Comments MPV (test code = MPV) 8.7 7.4-10.4 [facility]stTkaxicxSASUMCAGLD2577-58-02 11:53:00 Test Item Value Reference Range Interpretation Comments WBC (test code = WBC) 14.6 3.7-10.4 [facility]stSprhrvsYUMMGTISQA6650-44-18 11:53:00 Test Item Value Reference Range Interpretation Comments RBC (test code = RBC) 3.80 4.20-5.40 [facility]stSoadncuRJICXEQTAO0887-91-99 11:53:00 Test Item Value Reference Range Interpretation Comments Hgb (test code = Hgb) 11.4 12.0-16.0 [facility]stDvvvqmfBPAMCACPJT5931-67-62 11:53:00 Test Item Value Reference Range Interpretation Comments MCH (test code = MCH) 29.9 pg 27.0-31.0 [facility]stIwtrrmaVXIRKLRNSZ6623-90-08 11:53:00 Test Item Value Reference Range Interpretation Comments Platelet (test code = Platelet) 270 133-450 [facility]stHijsjnjAHZPZHOURJ8429-12-06 11:53:00 Test Item Value Reference Range Interpretation Comments RDW (test code = RDW) 13.1 11.5-14.5 [facility]stOuyfoutAZJLWBXMOC1117-60-84 11:53:00 Test Item Value Reference Range Interpretation Comments MCHC (test code = MCHC) 33.2 32.0-36.0 [facility]stCxyaqneOQTCYMSHNL0084-34-60 11:53:00 Test Item Value Reference Range Interpretation Comments MCV (test code = MCV) 90.2 80.0-98.0 [facility]stKfjfinaJXEEJJXVAB8005-56-52 11:53:00 Test Item Value Reference Range Interpretation Comments Hct (test code = Hct) 34.3 36.0-48.0 [facility]stBwfjyjpRLXIGAZKDR1824-66-86 11:53:00 Test Item Value Reference Range Interpretation Comments Eosinophils # (test code 0.0 See_Comment [A utomated message] The = Eosinophils #) system whic h generated this result tra nsmitted reference range : <=0.5. The reference r kenneth was not used to int erpret this result as normal/abnormal . [facility]stWlndkakPARMYQCQLB4470-02-54 11:53:00 Test Item Value Reference Range Interpretation Comments Monocytes # (test code 1.3 See_Comment [Aut omated message] The = Monocytes #) system which generated this result tra nsmitted reference range : <=0.8. The reference r kenneth was not used to int erpret this result as normal/abnormal . [facility]stIqbkfpvTFYDUTQCAO1985-42-84 11:53:00 Test Item Value Reference Range Interpretation Comments Lymphocytes # (test code = Lymphocytes 1.7 1.0-5.5 #) [facility]stWdedpapVVHKCNPQNL1188-69-30 11:53:00 Test Item Value Reference Range Interpretation Comments Eosinophils (test code = 0.1 See_Comment [A utomated message] The Eosinophils) system which ge nerated this result tra nsmitted reference range : <=4.0. The reference r kenneth was not used to int erpret this result as normal/abnormal . [facility]stPlwmuoiYWMTQNVVIC7207-16-79 11:53:00 Test Item Value Reference Range Interpretation Comments Basophils # (test code 0.0 See_Comment [Aut omated message] The = Basophils #) system which generated this result tra nsmitted reference range : <=0.2. The reference r kenneth was not used to int erpret this result as normal/abnormal . [facility]stWrpscbiTXBAVPGODR1918-34-77 11:53:00 Test Item Value Reference Range Interpretation Comments Monocytes (test code = Monocytes) 9.0 2.0-12.0 [facility]stAagnwfjUUHIQPAMDT5190-91-65 11:53:00 Test Item Value Reference Range Interpretation Comments Lymphocytes (test code = Lymphocytes) 11.9 20.0-40.0 [facility]stUspwaamYGEVKZAZBW3261-39-47 11:53:00 Test Item Value Reference Range Interpretation Comments Segs-Bands # (test code = Segs-Bands #) 11.5 1.5-8.1 [facility] [id number] 11:53:00 Test Item Value Reference Range Interpretation Comments Basophils (test code = 0.2 See_Comment [Aut omated message] The Basophils) system which ge nerated this result tra nsmitted reference range : <=1.0. The reference r kenneth was not used to int erpret this result as normal/abnormal . [facility]TwsgpcxDRJTRLSHDG0733-69-00 11:53:00 Test Item Value Reference Range Interpretation Comments Segs (test code = Segs) 78.8 45.0-75.0 [facility]stQdoogmuNJXLAXLKIZ2694-05-36 11:53:00 Test Item Value Reference Range Interpretation Comments Plt Morph (test code = Normal (04/29/15 5:53 Plt Morph) AM) [facility]2015-11-07 11:53:00 Test Item Value Reference Range Interpretation Comments Alk Phos (test code = Alk Phos) 82 39-136 [facility]2015-11-07 11:53:00 Test Item Value Reference Range Interpretation Comments Bili Total (test code = Bili Total) 1.0 0.2-1.3 [facility]2015-11-07 11:53:00 Test Item Value Reference Range Interpretation Comments AST (test code = AST) 14 See_Comment [Auto mated message] The system which ge nerated this result transmit regi reference range : <=37. The reference range was not used to interpr et this result as nela l/abnormal. [facility]2015-11-07 11:53:00 Test Item Value Reference Range Interpretation Comments ALT (test code = ALT) 26 See_Comment [Auto mated message] The system which ge nerated this result transmit regi reference range : <=65. The reference range was not used to interpr et this result as nela l/abnormal. [facility]2015-11-07 11:53:00 Test Item Value Reference Range Interpretation Comments eGFR (test code = eGFR) 127 [facility]2015-11-07 11:53:00 Test Item Value Reference Range Interpretation Comments Glucose Lvl (test code = Glucose Lvl) 109 70-99 [facility]2015-11-07 11:53:00 Test Item Value Reference Range Interpretation Comments BUN (test code = BUN) 6 7-22 [facility]2015-11-07 11:53:00 Test Item Value Reference Range Interpretation Comments Total Protein (test code = Total 7.0 6.4-8.4 Protein) [facility]2015-11-07 11:53:00 Test Item Value Reference Range Interpretation Comments Potassium Lvl (test code = Potassium 3.7 3.5-5.1 Lvl) [facility]2015-11-07 11:53:00 Test Item Value Reference Range Interpretation Comments Sodium Lvl (test code = Sodium Lvl) 139 135-145 [facility]2015-11-07 11:53:00 Test Item Value Reference Range Interpretation Comments Creatinine Lvl (test code = Creatinine 0.58 0.50-1.40 Lvl) [facility]2015-11-07 11:53:00 Test Item Value Reference Range Interpretation Comments Chloride Lvl (test code = Chloride Lvl) 105 95-109 [facility]2015-11-07 11:53:00 Test Item Value Reference Range Interpretation Comments CO2 (test code = CO2) 27 24-32 [facility]2015-11-07 11:53:00 Test Item Value Reference Range Interpretation Comments Calcium Lvl (test code = Calcium Lvl) 7.7 8.5-10.5 [facility]2015-11-07 11:53:00 Test Item Value Reference Range Interpretation Comments Albumin Lvl (test code = Albumin Lvl) 3.1 3.5-5.0 [facility]2015-11-07 11:53:00 Test Item Value Reference Range Interpretation Comments AGAP (test code = AGAP) 10.7 10.0-20.0 [facility]2015-11-07 11:53:00 Test Item Value Reference Range Interpretation Comments B/C Ratio (test code = B/C Ratio) 10 6-25 [facility]2015-11-07 11:53:00 Test Item Value Reference Range Interpretation Comments Globulin (test code = Globulin) 3.9 2.0-4.0 [facility]2015-11-07 11:53:00 Test Item Value Reference Range Interpretation Comments A/G Ratio (test code = A/G Ratio) 0.8 0.7-1.6 [facility]stPyuaiknJCOQGJNBOE1377-17-92 11:53:00 Test Item Value Reference Range Interpretation Comments MPV (test code = MPV) 8.7 7.4-10.4 [facility] HillcrestGuwipxuHMKBIFIXIU5950-22-85 11:53:00 Test Item Value Reference Range Interpretation Comments WBC (test code = WBC) 14.6 3.7-10.4 [facility] Hill[facility]stLxlpjsgLQQFMVCHFT8687-77-10 11:53:00 Test Item Value Reference Range Interpretation Comments RBC (test code = RBC) 3.80 4.20-5.40 [facility] HillcrestLhmtknoHBLZDSPXYB5458-52-16 11:53:00 Test Item Value Reference Range Interpretation Comments Hgb (test code = Hgb) 11.4 12.0-16.0 [facility]stFmctcwxRHVVMROLMO2784-40-97 11:53:00 Test Item Value Reference Range Interpretation Comments MCH (test code = MCH) 29.9 pg 27.0-31.0 [facility]stFuvjsujJRNUMOHNEK7080-67-22 11:53:00 Test Item Value Reference Range Interpretation Comments Platelet (test code = Platelet) 270 133-450 [facility]stNqboyvfILOGUZPEBM5750-03-82 11:53:00 Test Item Value Reference Range Interpretation Comments RDW (test code = RDW) 13.1 11.5-14.5 [facility]stFjjxlzxHBETHFRIBQ4779-15-19 11:53:00 Test Item Value Reference Range Interpretation Comments MCHC (test code = MCHC) 33.2 32.0-36.0 [facility]stIrwjgwaIITWPKTSNF3486-74-47 11:53:00 Test Item Value Reference Range Interpretation Comments MCV (test code = MCV) 90.2 80.0-98.0 [facility]stPauwantQSTWUUDPKR5387-26-69 11:53:00 Test Item Value Reference Range Interpretation Comments Hct (test code = Hct) 34.3 36.0-48.0 [facility]crestZauzkrvQQPXDNEGHQ1638-84-41 11:53:00 Test Item Value Reference Range Interpretation Comments Eosinophils # (test code 0.0 See_Comment [A utomated message] The = Eosinophils #) system whic h generated this result tra nsmitted reference range : <=0.5. The reference r kenneth was not used to int erpret this result as normal/abnormal . [facility]stZsjgpuvUBIBMTZWKM2367-71-95 11:53:00 Test Item Value Reference Range Interpretation Comments Monocytes # (test code 1.3 See_Comment [Aut omated message] The = Monocytes #) system which generated this result tra nsmitted reference range : <=0.8. The reference r kenneth was not used to int erpret this result as normal/abnormal . [facility] HillcrestLixrlagWOYANVULHA5755-48-80 11:53:00 Test Item Value Reference Range Interpretation Comments Lymphocytes # (test code = Lymphocytes 1.7 1.0-5.5 #) [facility]stFthmlnpTSUEMJTGRB0031-91-20 11:53:00 Test Item Value Reference Range Interpretation Comments Eosinophils (test code = 0.1 See_Comment [A utomated message] The Eosinophils) system which ge nerated this result tra nsmitted reference range : <=4.0. The reference r kenneth was not used to int erpret this result as normal/abnormal . [facility]stGfwgnqgZVIKHNRONU8538-84-96 11:53:00 Test Item Value Reference Range Interpretation Comments Basophils # (test code 0.0 See_Comment [Aut omated message] The = Basophils #) system which generated this result tra nsmitted reference range : <=0.2. The reference r kenneth was not used to int erpret this result as normal/abnormal . [facility]stAfoewsiPGKESZOVSA3793-58-75 11:53:00 Test Item Value Reference Range Interpretation Comments Monocytes (test code = Monocytes) 9.0 2.0-12.0 [facility]stKhmgckqHVIRSHBZJE2971-18-76 11:53:00 Test Item Value Reference Range Interpretation Comments Lymphocytes (test code = Lymphocytes) 11.9 20.0-40.0 [facility]stYxehpliYOBXJZJWFZ6919-95-45 11:53:00 Test Item Value Reference Range Interpretation Comments Segs-Bands # (test code = Segs-Bands #) 11.5 1.5-8.1 [facility]stMyowebyDVLXTGZUTZ6465-98-64 11:53:00 Test Item Value Reference Range Interpretation Comments Basophils (test code = 0.2 See_Comment [Aut omated message] The Basophils) system which ge nerated this result tra nsmitted reference range : <=1.0. The reference r kenneth was not used to int erpret this result as normal/abnormal . [facility]stHsmsqoaYIDFFMFWLY3082-29-43 11:53:00 Test Item Value Reference Range Interpretation Comments Segs (test code = Segs) 78.8 45.0-75.0 [facility]stOltyhdfRSYZCSZCTB6793-52-47 11:53:00 Test Item Value Reference Range Interpretation Comments Plt Morph (test code = Normal (04/29/15 5:53 Plt Morph) AM) [facility]2015-11-07 11:53:00 Test Item Value Reference Range Interpretation Comments Alk Phos (test code = Alk Phos) 82 39-136 [facility]2015-11-07 11:53:00 Test Item Value Reference Range Interpretation Comments Bili Total (test code = Bili Total) 1.0 0.2-1.3 [facility]2015-11-07 11:53:00 Test Item Value Reference Range Interpretation Comments AST (test code = AST) 14 See_Comment [Auto mated message] The system which ge nerated this result transmit regi reference range : <=37. The reference range was not used to interpr et this result as nela l/abnormal. [facility]2015-11-07 11:53:00 Test Item Value Reference Range Interpretation Comments ALT (test code = ALT) 26 See_Comment [Auto mated message] The system which ge nerated this result transmit regi reference range : <=65. The reference range was not used to interpr et this result as nela l/abnormal. [facility]2015-11-07 11:53:00 Test Item Value Reference Range Interpretation Comments eGFR (test code = eGFR) 127 [facility]2015-11-07 11:53:00 Test Item Value Reference Range Interpretation Comments Glucose Lvl (test code = Glucose Lvl) 109 70-99 [facility]2015-11-07 11:53:00 Test Item Value Reference Range Interpretation Comments BUN (test code = BUN) 6 7-22 [facility]2015-11-07 11:53:00 Test Item Value Reference Range Interpretation Comments Total Protein (test code = Total 7.0 6.4-8.4 Protein) [facility]2015-11-07 11:53:00 Test Item Value Reference Range Interpretation Comments Potassium Lvl (test code = Potassium 3.7 3.5-5.1 Lvl) [facility]2015-11-07 11:53:00 Test Item Value Reference Range Interpretation Comments Sodium Lvl (test code = Sodium Lvl) 139 135-145 [facility]2015-11-07 11:53:00 Test Item Value Reference Range Interpretation Comments Creatinine Lvl (test code = Creatinine 0.58 0.50-1.40 Lvl) [facility]2015-11-07 11:53:00 Test Item Value Reference Range Interpretation Comments Chloride Lvl (test code = Chloride Lvl) 105 95-109 [facility]2015-11-07 11:53:00 Test Item Value Reference Range Interpretation Comments CO2 (test code = CO2) 27 24-32 [facility]2015-11-07 11:53:00 Test Item Value Reference Range Interpretation Comments Calcium Lvl (test code = Calcium Lvl) 7.7 8.5-10.5 [facility]2015-11-07 11:53:00 Test Item Value Reference Range Interpretation Comments Albumin Lvl (test code = Albumin Lvl) 3.1 3.5-5.0 [facility]2015-11-07 11:53:00 Test Item Value Reference Range Interpretation Comments AGAP (test code = AGAP) 10.7 10.0-20.0 [facility]2015-11-07 11:53:00 Test Item Value Reference Range Interpretation Comments B/C Ratio (test code = B/C Ratio) 10 6-25 [facility]2015-11-07 11:53:00 Test Item Value Reference Range Interpretation Comments Globulin (test code = Globulin) 3.9 2.0-4.0 [facility]2015-11-07 11:53:00 Test Item Value Reference Range Interpretation Comments A/G Ratio (test code = A/G Ratio) 0.8 0.7-1.6 [facility]stYwrgkjhSNUNWFQFIZ7008-37-54 11:53:00 Test Item Value Reference Range Interpretation Comments MPV (test code = MPV) 8.7 7.4-10.4 [facility]stIayvbutSEWQBBFOTG9235-38-06 11:53:00 Test Item Value Reference Range Interpretation Comments WBC (test code = WBC) 14.6 3.7-10.4 [facility]stXysuwbxJIQEYEYVDF8457-45-61 11:53:00 Test Item Value Reference Range Interpretation Comments RBC (test code = RBC) 3.80 4.20-5.40 [facility]stKtlnknqSEPPVJFDSP6764-63-79 11:53:00 Test Item Value Reference Range Interpretation Comments Hgb (test code = Hgb) 11.4 12.0-16.0 [facility]stEzqxltwKFOQNKOUDM5408-86-42 11:53:00 Test Item Value Reference Range Interpretation Comments MCH (test code = MCH) 29.9 pg 27.0-31.0 [facility]stMkyqqrtTAUSVHBNNE1291-08-60 11:53:00 Test Item Value Reference Range Interpretation Comments Platelet (test code = Platelet) 270 133-450 [facility]stOrduwimFOOOQDNVRI3357-33-09 11:53:00 Test Item Value Reference Range Interpretation Comments RDW (test code = RDW) 13.1 11.5-14.5 [facility] Hill[facility]stDyojjtxQWHKLFFKJR9369-86-87 11:53:00 Test Item Value Reference Range Interpretation Comments MCHC (test code = MCHC) 33.2 32.0-36.0 [facility]stTviidvuIVHKZEHSAX0021-18-83 11:53:00 Test Item Value Reference Range Interpretation Comments MCV (test code = MCV) 90.2 80.0-98.0 [facility]stRcciqklRQCPXCALBC8331-67-05 11:53:00 Test Item Value Reference Range Interpretation Comments Hct (test code = Hct) 34.3 36.0-48.0 [facility]stDpikxpbVHWRVOXQSJ4791-26-03 11:53:00 Test Item Value Reference Range Interpretation Comments Eosinophils # (test code 0.0 See_Comment [A utomated message] The = Eosinophils #) system whic h generated this result tra nsmitted reference range : <=0.5. The reference r kenneth was not used to int erpret this result as normal/abnormal . [facility]stFnaiynjYKSPTLSBKL4014-15-78 11:53:00 Test Item Value Reference Range Interpretation Comments Monocytes # (test code 1.3 See_Comment [Aut omated message] The = Monocytes #) system which generated this result tra nsmitted reference range : <=0.8. The reference r kenneth was not used to int erpret this result as normal/abnormal . [facility]stRqgjmnkAWZKXAGSMN1365-15-78 11:53:00 Test Item Value Reference Range Interpretation Comments Lymphocytes # (test code = Lymphocytes 1.7 1.0-5.5 #) [facility]stKevrajnLRWCGISJDB5178-12-46 11:53:00 Test Item Value Reference Range Interpretation Comments Eosinophils (test code = 0.1 See_Comment [A utomated message] The Eosinophils) system which ge nerated this result tra nsmitted reference range : <=4.0. The reference r kenneth was not used to int erpret this result as normal/abnormal . [facility]stNqynlxgOHJMYIGIIM8936-98-05 11:53:00 Test Item Value Reference Range Interpretation Comments Basophils # (test code 0.0 See_Comment [Aut omated message] The = Basophils #) system which generated this result tra nsmitted reference range : <=0.2. The reference r kenneth was not used to int erpret this result as normal/abnormal . [facility]stKqrltmnWZHFRQYGLB3009-30-94 11:53:00 Test Item Value Reference Range Interpretation Comments Monocytes (test code = Monocytes) 9.0 2.0-12.0 [facility]stSdtqbugOOQJXTPENY6456-44-57 11:53:00 Test Item Value Reference Range Interpretation Comments Lymphocytes (test code = Lymphocytes) 11.9 20.0-40.0 [facility]stOtvgkjwPWNADYWFHR7957-97-92 11:53:00 Test Item Value Reference Range Interpretation Comments Segs-Bands # (test code = Segs-Bands #) 11.5 1.5-8.1 [facility]stIlfyqmfMJETWOTEGB3392-76-12 11:53:00 Test Item Value Reference Range Interpretation Comments Basophils (test code = 0.2 See_Comment [Aut omated message] The Basophils) system which ge nerated this result tra nsmitted reference range : <=1.0. The reference r kenneth was not used to int erpret this result as normal/abnormal . [place] 429475-11-07 11:53:00 Test Item Value Reference Range Interpretation Comments Segs (test code = Segs) 78.8 45.0-75.0 [place] 429475-11-07 11:53:00 Test Item Value Reference Range Interpretation Comments Plt Morph (test code = Normal (04/29/15 5:53 Plt Morph) AM) [facility]2015-11-07 11:53:00 Test Item Value Reference Range Interpretation Comments Alk Phos (test code = Alk Phos) 82 39-136 [facility]2015-11-07 11:53:00 Test Item Value Reference Range Interpretation Comments Bili Total (test code = Bili Total) 1.0 0.2-1.3 [place] 672355-11-07 11:53:00 Test Item Value Reference Range Interpretation Comments AST (test code = AST) 14 See_Comment [Auto mated message] The system which ge nerated this result transmit regi reference range : <=37. The reference range was not used to interpr et this result as nela l/abnormal. [facility]2015-11-07 11:53:00 Test Item Value Reference Range Interpretation Comments ALT (test code = ALT) 26 See_Comment [Auto mated message] The system which ge nerated this result transmit reig reference range : <=65. The reference range was not used to interpr et this result as nela l/abnormal. [facility]2015-11-07 11:53:00 Test Item Value Reference Range Interpretation Comments eGFR (test code = eGFR) 127 [facility]2015-11-07 11:53:00 Test Item Value Reference Range Interpretation Comments Glucose Lvl (test code = Glucose Lvl) 109 70-99 [facility]2015-11-07 11:53:00 Test Item Value Reference Range Interpretation Comments BUN (test code = BUN) 6 7-22 [facility]2015-11-07 11:53:00 Test Item Value Reference Range Interpretation Comments Total Protein (test code = Total 7.0 6.4-8.4 Protein) [facility]2015-11-07 11:53:00 Test Item Value Reference Range Interpretation Comments Potassium Lvl (test code = Potassium 3.7 3.5-5.1 Lvl) [facility]2015-11-07 11:53:00 Test Item Value Reference Range Interpretation Comments Sodium Lvl (test code = Sodium Lvl) 139 135-145 [facility]2015-11-07 11:53:00 Test Item Value Reference Range Interpretation Comments Creatinine Lvl (test code = Creatinine 0.58 0.50-1.40 Lvl) [facility]2015-11-07 11:53:00 Test Item Value Reference Range Interpretation Comments Chloride Lvl (test code = Chloride Lvl) 105 95-109 [facility]2015-11-07 11:53:00 Test Item Value Reference Range Interpretation Comments CO2 (test code = CO2) 27 24-32 [facility]2015-11-07 11:53:00 Test Item Value Reference Range Interpretation Comments Calcium Lvl (test code = Calcium Lvl) 7.7 8.5-10.5 [facility]2015-11-07 11:53:00 Test Item Value Reference Range Interpretation Comments Albumin Lvl (test code = Albumin Lvl) 3.1 3.5-5.0 [facility]2015-11-07 11:53:00 Test Item Value Reference Range Interpretation Comments AGAP (test code = AGAP) 10.7 10.0-20.0 [facility]2015-11-07 11:53:00 Test Item Value Reference Range Interpretation Comments B/C Ratio (test code = B/C Ratio) 10 6-25 [facility]2015-11-07 11:53:00 Test Item Value Reference Range Interpretation Comments Globulin (test code = Globulin) 3.9 2.0-4.0 [facility]2015-11-07 11:53:00 Test Item Value Reference Range Interpretation Comments A/G Ratio (test code = A/G Ratio) 0.8 0.7-1.6 [facility]stSvumalqRQIFCPRZHV4842-31-56 11:53:00 Test Item Value Reference Range Interpretation Comments MPV (test code = MPV) 8.7 7.4-10.4 [facility]stGeblasiXUDHGAFFOG7183-77-74 11:53:00 Test Item Value Reference Range Interpretation Comments WBC (test code = WBC) 14.6 3.7-10.4 [facility]stQecdxzqFASVUUMIBR9584-07-31 11:53:00 Test Item Value Reference Range Interpretation Comments RBC (test code = RBC) 3.80 4.20-5.40 [facility]stEhwfjsmQCQVOOWZWV2207-18-19 11:53:00 Test Item Value Reference Range Interpretation Comments Hgb (test code = Hgb) 11.4 12.0-16.0 [facility]stSthmdkeHAHUAQRVOY2222-13-55 11:53:00 Test Item Value Reference Range Interpretation Comments MCH (test code = MCH) 29.9 pg 27.0-31.0 [facility]stPhmlhruRUPENQRCSC2947-37-49 11:53:00 Test Item Value Reference Range Interpretation Comments Platelet (test code = Platelet) 270 133-450 [facility]stRtzvryfBREAMQHWBC2731-70-82 11:53:00 Test Item Value Reference Range Interpretation Comments RDW (test code = RDW) 13.1 11.5-14.5 [facility]stMalnpwpUUIDJOFZSG1850-85-33 11:53:00 Test Item Value Reference Range Interpretation Comments MCHC (test code = MCHC) 33.2 32.0-36.0 [facility]stFzwumejTIXSXCFRCA3933-65-00 11:53:00 Test Item Value Reference Range Interpretation Comments MCV (test code = MCV) 90.2 80.0-98.0 [facility]stQpwbfkcMZMUQSXRIO0398-34-38 11:53:00 Test Item Value Reference Range Interpretation Comments Hct (test code = Hct) 34.3 36.0-48.0 [facility]stBngpelvJLVQMXBCMT1532-96-40 11:53:00 Test Item Value Reference Range Interpretation Comments Eosinophils # (test code 0.0 See_Comment [A utomated message] The = Eosinophils #) system ic h generated this result tra nsmitted reference range : <=0.5. The reference r kenneth was not used to int erpret this result as normal/abnormal . [facility]stDytofzmSVVZNCOYFL6223-21-39 11:53:00 Test Item Value Reference Range Interpretation Comments Monocytes # (test code 1.3 See_Comment [Aut omated message] The = Monocytes #) system which generated this result tra nsmitted reference range : <=0.8. The reference r kenneth was not used to int erpret this result as normal/abnormal . [facility]stRvrarjhMZAKGEDRRN9534-33-43 11:53:00 Test Item Value Reference Range Interpretation Comments Lymphocytes # (test code = Lymphocytes 1.7 1.0-5.5 #) [facility]stWbrmfifUBYCPBCXLJ0717-45-44 11:53:00 Test Item Value Reference Range Interpretation Comments Eosinophils (test code = 0.1 See_Comment [A utomated message] The Eosinophils) system which ge nerated this result tra nsmitted reference range : <=4.0. The reference r kenneth was not used to int erpret this result as normal/abnormal . [facility]stZczulbfIPHXXRHXQM4977-46-51 11:53:00 Test Item Value Reference Range Interpretation Comments Basophils # (test code 0.0 See_Comment [Aut omated message] The = Basophils #) system which generated this result tra nsmitted reference range : <=0.2. The reference r kenneth was not used to int erpret this result as normal/abnormal . [facility]stUvxasflULJUBCCUHJ5275-99-32 11:53:00 Test Item Value Reference Range Interpretation Comments Monocytes (test code = Monocytes) 9.0 2.0-12.0 [facility]stZldvjqxXAUIFRGAEX9388-26-79 11:53:00 Test Item Value Reference Range Interpretation Comments Lymphocytes (test code = Lymphocytes) 11.9 20.0-40.0 [facility] [place]stGbgpuovHWBTRDCXAC5248-88-29 11:53:00 Test Item Value Reference Range Interpretation Comments Segs-Bands # (test code = Segs-Bands #) 11.5 1.5-8.1 [facility]stOygfiozAQKWMZJPBS3741-61-44 11:53:00 Test Item Value Reference Range Interpretation Comments Basophils (test code = 0.2 See_Comment [Aut omated message] The Basophils) system which ge nerated this result tra nsmitted reference range : <=1.0. The reference r kenneth was not used to int erpret this result as normal/abnormal . [facility]stCbxwtkbIRTOFPFPSU8468-01-79 11:53:00 Test Item Value Reference Range Interpretation Comments Segs (test code = Segs) 78.8 45.0-75.0 [place] 429475-11-07 11:53:00 Test Item Value Reference Range Interpretation Comments Plt Morph (test code = Normal (04/29/15 5:53 Plt Morph) AM) [place] 672355-11-07 11:53:00 Test Item Value Reference Range Interpretation Comments Alk Phos (test code = Alk Phos) 82 39-136 [place] 672355-11-07 11:53:00 Test Item Value Reference Range Interpretation Comments Bili Total (test code = Bili Total) 1.0 0.2-1.3 [place] 672355-11-07 11:53:00 Test Item Value Reference Range Interpretation Comments AST (test code = AST) 14 See_Comment [Auto mated message] The system which ge nerated this result transmit regi reference range : <=37. The reference range was not used to interpr et this result as nela l/abnormal. [facility]2015-11-07 11:53:00 Test Item Value Reference Range Interpretation Comments ALT (test code = ALT) 26 See_Comment [Auto mated message] The system which ge nerated this result transmit regi reference range : <=65. The reference range was not used to interpr et this result as nela l/abnormal. [facility]2015-11-07 11:53:00 Test Item Value Reference Range Interpretation Comments eGFR (test code = eGFR) 127 [facility]2015-11-07 11:53:00 Test Item Value Reference Range Interpretation Comments Glucose Lvl (test code = Glucose Lvl) 109 70-99 [facility]2015-11-07 11:53:00 Test Item Value Reference Range Interpretation Comments BUN (test code = BUN) 6 7-22 [place] 672355-11-07 11:53:00 Test Item Value Reference Range Interpretation Comments Total Protein (test code = Total 7.0 6.4-8.4 Protein) [facility]2015-11-07 11:53:00 Test Item Value Reference Range Interpretation Comments Potassium Lvl (test code = Potassium 3.7 3.5-5.1 Lvl) [facility]2015-11-07 11:53:00 Test Item Value Reference Range Interpretation Comments Sodium Lvl (test code = Sodium Lvl) 139 135-145 [facility]2015-11-07 11:53:00 Test Item Value Reference Range Interpretation Comments Creatinine Lvl (test code = Creatinine 0.58 0.50-1.40 Lvl) [facility]2015-11-07 11:53:00 Test Item Value Reference Range Interpretation Comments Chloride Lvl (test code = Chloride Lvl) 105 95-109 [facility]2015-11-07 11:53:00 Test Item Value Reference Range Interpretation Comments CO2 (test code = CO2) 27 24-32 [facility]2015-11-07 11:53:00 Test Item Value Reference Range Interpretation Comments Calcium Lvl (test code = Calcium Lvl) 7.7 8.5-10.5 [facility]2015-11-07 11:53:00 Test Item Value Reference Range Interpretation Comments Albumin Lvl (test code = Albumin Lvl) 3.1 3.5-5.0 [facility]2015-11-07 11:53:00 Test Item Value Reference Range Interpretation Comments AGAP (test code = AGAP) 10.7 10.0-20.0 [facility]2015-11-07 11:53:00 Test Item Value Reference Range Interpretation Comments B/C Ratio (test code = B/C Ratio) 10 6-25 [facility]2015-11-07 11:53:00 Test Item Value Reference Range Interpretation Comments Globulin (test code = Globulin) 3.9 2.0-4.0 [facility]2015-11-07 11:53:00 Test Item Value Reference Range Interpretation Comments A/G Ratio (test code = A/G Ratio) 0.8 0.7-1.6 [facility]stUjtroeiQFFOKZHPYF8977-28-09 11:53:00 Test Item Value Reference Range Interpretation Comments MPV (test code = MPV) 8.7 7.4-10.4 [facility] HillcrestIjsplfhYRTBUJNYOD2796-55-71 11:53:00 Test Item Value Reference Range Interpretation Comments WBC (test code = WBC) 14.6 3.7-10.4 [facility]stEaezlcrQZYFMQONZJ3396-40-63 11:53:00 Test Item Value Reference Range Interpretation Comments RBC (test code = RBC) 3.80 4.20-5.40 [place] 429475-11-07 11:53:00 Test Item Value Reference Range Interpretation Comments Hgb (test code = Hgb) 11.4 12.0-16.0 [facility] HillcrestLhldjicBYXXRCUBPH0853-23-52 11:53:00 Test Item Value Reference Range Interpretation Comments MCH (test code = MCH) 29.9 pg 27.0-31.0 [facility]stPkjsvleYILYFPVYXJ1038-52-68 11:53:00 Test Item Value Reference Range Interpretation Comments Platelet (test code = Platelet) 270 133-450 [facility] HillcrestSelqdlzJAHOBDSCKV3112-95-04 11:53:00 Test Item Value Reference Range Interpretation Comments RDW (test code = RDW) 13.1 11.5-14.5 [facility]stXcplyypQFKUXUQHWE6740-84-11 11:53:00 Test Item Value Reference Range Interpretation Comments MCHC (test code = MCHC) 33.2 32.0-36.0 [facility]stAzgbiziBILGCKNNLG5207-96-06 11:53:00 Test Item Value Reference Range Interpretation Comments MCV (test code = MCV) 90.2 80.0-98.0 [facility] HillcrestFdvieesFOZTANMLCB9939-64-05 11:53:00 Test Item Value Reference Range Interpretation Comments Hct (test code = Hct) 34.3 36.0-48.0 [facility]crestXzmkpzpXMDUTTPOCM3702-25-31 11:53:00 Test Item Value Reference Range Interpretation Comments Eosinophils # (test code 0.0 See_Comment [A utomated message] The = Eosinophils #) system whic h generated this result tra nsmitted reference range : <=0.5. The reference r kenneth was not used to int erpret this result as normal/abnormal . [facility]stJunyhzpYEECLZYFKE7242-13-87 11:53:00 Test Item Value Reference Range Interpretation Comments Monocytes # (test code 1.3 See_Comment [Aut omated message] The = Monocytes #) system which generated this result tra nsmitted reference range : <=0.8. The reference r kenneth was not used to int erpret this result as normal/abnormal . [facility]stIefxvusPDNJCDMXKL6044-50-72 11:53:00 Test Item Value Reference Range Interpretation Comments Lymphocytes # (test code = Lymphocytes 1.7 1.0-5.5 #) [facility]crestBnxsdeuHPBUSIKXQU3762-29-04 11:53:00 Test Item Value Reference Range Interpretation Comments Eosinophils (test code = 0.1 See_Comment [A utomated message] The Eosinophils) system which ge nerated this result tra nsmitted reference range : <=4.0. The reference r kenneth was not used to int erpret this result as normal/abnormal . [facility]stEmcnossHTZMGNWGXJ2178-26-59 11:53:00 Test Item Value Reference Range Interpretation Comments Basophils # (test code 0.0 See_Comment [Aut omated message] The = Basophils #) system which generated this result tra nsmitted reference range : <=0.2. The reference r kenneth was not used to int erpret this result as normal/abnormal . [facility]stAjidncwJDIQLAEARK8271-11-23 11:53:00 Test Item Value Reference Range Interpretation Comments Monocytes (test code = Monocytes) 9.0 2.0-12.0 [facility]stEstpubbFFCIYALMGS0086-78-04 11:53:00 Test Item Value Reference Range Interpretation Comments Lymphocytes (test code = Lymphocytes) 11.9 20.0-40.0 [facility]stTkofwacYPCLGXMTIN5927-27-19 11:53:00 Test Item Value Reference Range Interpretation Comments Segs-Bands # (test code = Segs-Bands #) 11.5 1.5-8.1 [facility] HillcrestSgenpicWHCOJWJXJC9948-46-68 11:53:00 Test Item Value Reference Range Interpretation Comments Basophils (test code = 0.2 See_Comment [Aut omated message] The Basophils) system which ge nerated this result tra nsmitted reference range : <=1.0. The reference r kenneth was not used to int erpret this result as normal/abnormal . [facility]stIjwmdqaJHWNISTUNV0732-29-08 11:53:00 Test Item Value Reference Range Interpretation Comments Segs (test code = Segs) 78.8 45.0-75.0 [facility]stEwwnddwLXZJAOVVNY5183-97-85 11:53:00 Test Item Value Reference Range Interpretation Comments Plt Morph (test code = Normal (04/29/15 5:53 Plt Morph) AM) [facility]2015-11-06 12:22:00 Test Item Value Reference Range Interpretation Comments U Preg (test code = U Negative (04/28/15 6:22 Preg) AM) [facility]2015-11-06 12:22:00 Test Item Value Reference Range Interpretation Comments U Preg (test code = U Negative (04/28/15 6:22 Preg) AM) [facility]2015-11-06 12:22:00 Test Item Value Reference Range Interpretation Comments U Preg (test code = U Negative (04/28/15 6:22 Preg) AM) [facility]2015-11-06 12:22:00 Test Item Value Reference Range Interpretation Comments U Preg (test code = U Negative (04/28/15 6:22 Preg) AM) [facility]2015-11-06 12:22:00 Test Item Value Reference Range Interpretation Comments U Preg (test code = U Negative (04/28/15 6:22 Preg) AM) [facility]2015-11-06 12:22:00 Test Item Value Reference Range Interpretation Comments U Preg (test code = U Negative (04/28/15 6:22 Preg) AM) [facility]2015-11-06 12:22:00 Test Item Value Reference Range Interpretation Comments U Preg (test code = U Negative (04/28/15 6:22 Preg) AM) [facility] [id number] 22:30:00 Test Item Value Reference Range Interpretation Comments ABO/Rh (test code = ABO/Rh) B POS [facility] [id number] 22:30:00 Test Item Value Reference Range Interpretation Comments Antibody Scrn (test Negative (04/26/15 4:30 code = Antibody Scrn) PM) [facility]stExterevUBRUSKVUPJ6972-24-39 22:30:00 Test Item Value Reference Range Interpretation Comments Eosinophils (test code = 1.9 See_Comment [A utomated message] The Eosinophils) system which ge nerated this result tra nsmitted reference range : <=4.0. The reference r kenneth was not used to int erpret this result as normal/abnormal . [facility]stVnkadfjRCKNRSTKEU8322-72-50 22:30:00 Test Item Value Reference Range Interpretation Comments Monocytes (test code = Monocytes) 6.7 2.0-12.0 [facility]stEolcgveXFTOVQYOQZ6314-64-42 22:30:00 Test Item Value Reference Range Interpretation Comments Eosinophils # (test code 0.2 See_Comment [A utomated message] The = Eosinophils #) system whic h generated this result tra nsmitted reference range : <=0.5. The reference r kenneth was not used to int erpret this result as normal/abnormal . [facility]stZygrvhbVPOBNVVFQL3572-90-14 22:30:00 Test Item Value Reference Range Interpretation Comments Monocytes # (test code 0.8 See_Comment [Aut omated message] The = Monocytes #) system which generated this result tra nsmitted reference range : <=0.8. The reference r kenneth was not used to int erpret this result as normal/abnormal . [facility]stFtfhzioWYUCBTYNDG4978-07-02 22:30:00 Test Item Value Reference Range Interpretation Comments Lymphocytes (test code = Lymphocytes) 18.6 20.0-40.0 [facility]stVkrakhyRSIWJJJHSZ4472-77-44 22:30:00 Test Item Value Reference Range Interpretation Comments Lymphocytes # (test code = Lymphocytes 2.3 1.0-5.5 #) [facility] Hill[facility]stLllkblhNFCXTPPPYC1484-64-43 22:30:00 Test Item Value Reference Range Interpretation Comments Basophils (test code = 0.6 See_Comment [Aut omated message] The Basophils) system which ge nerated this result tra nsmitted reference range : <=1.0. The reference r kenneth was not used to int erpret this result as normal/abnormal . [facility]stXlsbvbbTCWGZKJZYH9929-14-83 22:30:00 Test Item Value Reference Range Interpretation Comments Segs-Bands # (test code = Segs-Bands #) 8.7 1.5-8.1 [facility]stDcqusrdGNHNHCSROS8094-82-35 22:30:00 Test Item Value Reference Range Interpretation Comments Basophils # (test code 0.1 See_Comment [Aut omated message] The = Basophils #) system which generated this result tra nsmitted reference range : <=0.2. The reference r kenneth was not used to int erpret this result as normal/abnormal . [facility]stGrttuwlTVHZTVPUFM0796-83-11 22:30:00 Test Item Value Reference Range Interpretation Comments Segs (test code = Segs) 72.2 45.0-75.0 [facility]stEmyyejwQTFQRUPOYE7395-28-52 22:30:00 Test Item Value Reference Range Interpretation Comments Hct (test code = Hct) 40.8 36.0-48.0 [facility]stOvecbzmCEEICQGXPF0840-63-06 22:30:00 Test Item Value Reference Range Interpretation Comments MCHC (test code = MCHC) 32.6 32.0-36.0 [facility] HillcrestAcyrzfgISVDIDLXCE2782-18-37 22:30:00 Test Item Value Reference Range Interpretation Comments MCH (test code = MCH) 29.4 pg 27.0-31.0 [facility]stYeoysnmPDKVDWPAHZ9519-06-98 22:30:00 Test Item Value Reference Range Interpretation Comments RDW (test code = RDW) 13.3 11.5-14.5 [facility]stJrytrfrLZPKSEGLRB8128-34-05 22:30:00 Test Item Value Reference Range Interpretation Comments RBC (test code = RBC) 4.53 4.20-5.40 [facility]stHhhbaxjXCTRXZORBK7155-79-53 22:30:00 Test Item Value Reference Range Interpretation Comments WBC (test code = WBC) 12.1 3.7-10.4 [facility]stKwyrgqwBAHISBCTDC8241-62-66 22:30:00 Test Item Value Reference Range Interpretation Comments Hgb (test code = Hgb) 13.3 12.0-16.0 [facility]stEritmmzKBTCEXQCCT2291-20-62 22:30:00 Test Item Value Reference Range Interpretation Comments MCV (test code = MCV) 90.2 80.0-98.0 [facility]stNmcwtprULONQVYVVD0722-08-64 22:30:00 Test Item Value Reference Range Interpretation Comments MPV (test code = MPV) 8.4 7.4-10.4 [facility]stLlaitrzQLEGUHFWJB5724-09-87 22:30:00 Test Item Value Reference Range Interpretation Comments Platelet (test code = Platelet) 322 133-450 [facility] HillcrestYitsglbMIOYNJGMOK5355-54-75 22:30:00 Test Item Value Reference Range Interpretation Comments PTT (test code = PTT) 25.5 s 22.9-35.8 [facility]stUibmswlEIOXLENHZC7729-87-08 22:30:00 Test Item Value Reference Range Interpretation Comments PT (test code = PT) 13.4 s 12.0-14.7 [facility]stDvpqtxqUTUIGZUUDR2195-19-41 22:30:00 Test Item Value Reference Range Interpretation Comments INR (test code = INR) 0.99 0.85-1.17 [facility] [id number] 22:30:00 Test Item Value Reference Range Interpretation Comments ABO/Rh (test code = ABO/Rh) B POS [facility] [id number] 22:30:00 Test Item Value Reference Range Interpretation Comments Antibody Scrn (test Negative (04/26/15 4:30 code = Antibody Scrn) PM) [facility]stTdddfkuFKFJOSCYGE6563-41-04 22:30:00 Test Item Value Reference Range Interpretation Comments Eosinophils (test code = 1.9 See_Comment [A utomated message] The Eosinophils) system which ge nerated this result tra nsmitted reference range : <=4.0. The reference r kenneth was not used to int erpret this result as normal/abnormal . [facility]stDnzpnpcWUDYCLEAAU2761-79-70 22:30:00 Test Item Value Reference Range Interpretation Comments Monocytes (test code = Monocytes) 6.7 2.0-12.0 [facility]crestLmacocyMYIZEFJYTA7292-58-32 22:30:00 Test Item Value Reference Range Interpretation Comments Eosinophils # (test code 0.2 See_Comment [A utomated message] The = Eosinophils #) system whic h generated this result tra nsmitted reference range : <=0.5. The reference r kenneth was not used to int erpret this result as normal/abnormal . [facility]stLyjmpgmJQHGFXXFHZ3113-68-58 22:30:00 Test Item Value Reference Range Interpretation Comments Monocytes # (test code 0.8 See_Comment [Aut omated message] The = Monocytes #) system which generated this result tra nsmitted reference range : <=0.8. The reference r kenneth was not used to int erpret this result as normal/abnormal . [facility]stKdvxytzURYLYLKVXC1668-18-21 22:30:00 Test Item Value Reference Range Interpretation Comments Lymphocytes (test code = Lymphocytes) 18.6 20.0-40.0 [facility]stGbpplfqBGLYIVGMMM5558-86-11 22:30:00 Test Item Value Reference Range Interpretation Comments Lymphocytes # (test code = Lymphocytes 2.3 1.0-5.5 #) [facility]stDrsvncdKJFMUIAHCS2727-80-18 22:30:00 Test Item Value Reference Range Interpretation Comments Basophils (test code = 0.6 See_Comment [Aut omated message] The Basophils) system which ge nerated this result tra nsmitted reference range : <=1.0. The reference r kenneth was not used to int erpret this result as normal/abnormal . [facility]stCqtlgysBWCBQBLQTY7043-17-35 22:30:00 Test Item Value Reference Range Interpretation Comments Segs-Bands # (test code = Segs-Bands #) 8.7 1.5-8.1 [facility]stTnoityuZMXGWQMJRC8080-54-89 22:30:00 Test Item Value Reference Range Interpretation Comments Basophils # (test code 0.1 See_Comment [Aut omated message] The = Basophils #) system which generated this result tra nsmitted reference range : <=0.2. The reference r kenneth was not used to int erpret this result as normal/abnormal . [facility]stQnrldxpTEDPQXOMKI0379-09-47 22:30:00 Test Item Value Reference Range Interpretation Comments Segs (test code = Segs) 72.2 45.0-75.0 [facility]stRpwkephFQVFCMGHPA5132-32-86 22:30:00 Test Item Value Reference Range Interpretation Comments Hct (test code = Hct) 40.8 36.0-48.0 [facility] HillcrestIejavnhDKZWESWTHU3859-26-45 22:30:00 Test Item Value Reference Range Interpretation Comments MCHC (test code = MCHC) 32.6 32.0-36.0 [facility]stPvmlfrnJXKVNQWAXS6275-60-55 22:30:00 Test Item Value Reference Range Interpretation Comments MCH (test code = MCH) 29.4 pg 27.0-31.0 [facility]stYrkwxshKHNVOLYGKX7889-61-41 22:30:00 Test Item Value Reference Range Interpretation Comments RDW (test code = RDW) 13.3 11.5-14.5 [facility]stHdfcdqjEPURCXKQOA7896-41-87 22:30:00 Test Item Value Reference Range Interpretation Comments RBC (test code = RBC) 4.53 4.20-5.40 [facility]stGpxlhflODSWYERTVM2756-30-05 22:30:00 Test Item Value Reference Range Interpretation Comments WBC (test code = WBC) 12.1 3.7-10.4 [facility]stQzzqlzdIFGGWLFNUB1000-46-74 22:30:00 Test Item Value Reference Range Interpretation Comments Hgb (test code = Hgb) 13.3 12.0-16.0 [facility]stIzfzxnlURMYKMUPNE0309-37-65 22:30:00 Test Item Value Reference Range Interpretation Comments MCV (test code = MCV) 90.2 80.0-98.0 [facility]stWlxyvnwINOCLHXHIG4500-92-21 22:30:00 Test Item Value Reference Range Interpretation Comments MPV (test code = MPV) 8.4 7.4-10.4 [facility]stVwefjtwGKLMRCHNMP6734-03-36 22:30:00 Test Item Value Reference Range Interpretation Comments Platelet (test code = Platelet) 322 133-450 [facility]stWcfluacJLUMXJXGRE0482-46-34 22:30:00 Test Item Value Reference Range Interpretation Comments PTT (test code = PTT) 25.5 s 22.9-35.8 [facility]stZeieiswLDAIQZRFYY0928-89-64 22:30:00 Test Item Value Reference Range Interpretation Comments PT (test code = PT) 13.4 s 12.0-14.7 [facility]stUykbmccJDKCBRERTG4248-35-41 22:30:00 Test Item Value Reference Range Interpretation Comments INR (test code = INR) 0.99 0.85-1.17 [facility] [id number] 22:30:00 Test Item Value Reference Range Interpretation Comments ABO/Rh (test code = ABO/Rh) B POS [facility] [id number] 22:30:00 Test Item Value Reference Range Interpretation Comments Antibody Scrn (test Negative (04/26/15 4:30 code = Antibody Scrn) PM) [facility]stVkezzazQGGCQHVILM2415-60-08 22:30:00 Test Item Value Reference Range Interpretation Comments Eosinophils (test code = 1.9 See_Comment [A utomated message] The Eosinophils) system which ge nerated this result tra nsmitted reference range : <=4.0. The reference r kenneth was not used to int erpret this result as normal/abnormal . [facility]stEyzvdisVQJTOKJESM5975-83-75 22:30:00 Test Item Value Reference Range Interpretation Comments Monocytes (test code = Monocytes) 6.7 2.0-12.0 [facility]stKmxcrawCLHPRXFHPZ3287-01-73 22:30:00 Test Item Value Reference Range Interpretation Comments Eosinophils # (test code 0.2 See_Comment [A utomated message] The = Eosinophils #) system whic h generated this result tra nsmitted reference range : <=0.5. The reference r kenneth was not used to int erpret this result as normal/abnormal . [facility]stMhfcgsiNVNPIWIHWF8294-80-30 22:30:00 Test Item Value Reference Range Interpretation Comments Monocytes # (test code 0.8 See_Comment [Aut omated message] The = Monocytes #) system which generated this result tra nsmitted reference range : <=0.8. The reference r kenneth was not used to int erpret this result as normal/abnormal . [facility]stIhbqtejISYNSFICLO1794-91-21 22:30:00 Test Item Value Reference Range Interpretation Comments Lymphocytes (test code = Lymphocytes) 18.6 20.0-40.0 [facility] HillcrestBrcattmGHIMJFXFNC3457-93-33 22:30:00 Test Item Value Reference Range Interpretation Comments Lymphocytes # (test code = Lymphocytes 2.3 1.0-5.5 #) [facility]stZzjkiufZJKVZFNDUY3536-56-61 22:30:00 Test Item Value Reference Range Interpretation Comments Basophils (test code = 0.6 See_Comment [Aut omated message] The Basophils) system which ge nerated this result tra nsmitted reference range : <=1.0. The reference r kenneth was not used to int erpret this result as normal/abnormal . [facility]stHobftidJJWVXTTXAO0517-53-43 22:30:00 Test Item Value Reference Range Interpretation Comments Segs-Bands # (test code = Segs-Bands #) 8.7 1.5-8.1 [facility]stVpmhtbwCSDOGYDRPJ0333-70-64 22:30:00 Test Item Value Reference Range Interpretation Comments Basophils # (test code 0.1 See_Comment [Aut omated message] The = Basophils #) system which generated this result tra nsmitted reference range : <=0.2. The reference r kenneth was not used to int erpret this result as normal/abnormal . [facility]stZzczogwBYPXDQNCRH4787-14-10 22:30:00 Test Item Value Reference Range Interpretation Comments Segs (test code = Segs) 72.2 45.0-75.0 [facility]stIgvkdrnQIAXZTQZZG3143-87-89 22:30:00 Test Item Value Reference Range Interpretation Comments Hct (test code = Hct) 40.8 36.0-48.0 [facility]stRlgjsldNJPQKCNEOW2688-92-58 22:30:00 Test Item Value Reference Range Interpretation Comments MCHC (test code = MCHC) 32.6 32.0-36.0 [facility]stBbuwsiuRRDJNPGOHS3501-14-22 22:30:00 Test Item Value Reference Range Interpretation Comments MCH (test code = MCH) 29.4 pg 27.0-31.0 [facility]stOqlqsxmVZLFYHWVXU1038-17-95 22:30:00 Test Item Value Reference Range Interpretation Comments RDW (test code = RDW) 13.3 11.5-14.5 [facility]stSxybjkaSIQWHEWKKI6843-37-31 22:30:00 Test Item Value Reference Range Interpretation Comments RBC (test code = RBC) 4.53 4.20-5.40 [facility]stSzehgjmJKLIPFLYTR9654-95-38 22:30:00 Test Item Value Reference Range Interpretation Comments WBC (test code = WBC) 12.1 3.7-10.4 [facility]stRuftezcOAMIVREGVO5332-13-06 22:30:00 Test Item Value Reference Range Interpretation Comments Hgb (test code = Hgb) 13.3 12.0-16.0 [facility]stRblichmQLHTJTZVKZ8255-15-05 22:30:00 Test Item Value Reference Range Interpretation Comments MCV (test code = MCV) 90.2 80.0-98.0 [facility]stHoohzluQVLDHVTAPO5774-51-63 22:30:00 Test Item Value Reference Range Interpretation Comments MPV (test code = MPV) 8.4 7.4-10.4 [facility]stJjvcvdiHBKAYASOXB6730-21-75 22:30:00 Test Item Value Reference Range Interpretation Comments Platelet (test code = Platelet) 322 133-450 [facility]stNehsckgCQPISVQMEM4397-88-59 22:30:00 Test Item Value Reference Range Interpretation Comments PTT (test code = PTT) 25.5 s 22.9-35.8 [facility]stBrcxdjnFPHZUNYLTZ5753-52-24 22:30:00 Test Item Value Reference Range Interpretation Comments PT (test code = PT) 13.4 s 12.0-14.7 [facility]stDmtoagjQMBPEDXVPA9482-76-21 22:30:00 Test Item Value Reference Range Interpretation Comments INR (test code = INR) 0.99 0.85-1.17 [facility] TVJGUOF0558-74-82 22:30:00 Test Item Value Reference Range Interpretation Comments ABO/Rh (test code = ABO/Rh) B POS [facility] [id number] 22:30:00 Test Item Value Reference Range Interpretation Comments Antibody Scrn (test Negative (04/26/15 4:30 code = Antibody Scrn) PM) [facility]stRzoomcpRVGTZGSZHE0579-72-88 22:30:00 Test Item Value Reference Range Interpretation Comments Eosinophils (test code = 1.9 See_Comment [A utomated message] The Eosinophils) system which ge nerated this result tra nsmitted reference range : <=4.0. The reference r kenneth was not used to int erpret this result as normal/abnormal . [facility]stJrppkqsGACCCSSTBU6023-63-90 22:30:00 Test Item Value Reference Range Interpretation Comments Monocytes (test code = Monocytes) 6.7 2.0-12.0 [facility]stRzohsbmWDKQJUXMHY6228-32-98 22:30:00 Test Item Value Reference Range Interpretation Comments Eosinophils # (test code 0.2 See_Comment [A utomated message] The = Eosinophils #) system whic h generated this result tra nsmitted reference range : <=0.5. The reference r kenneth was not used to int erpret this result as normal/abnormal . [facility]stDopciwyRPPPATJOMO3493-64-81 22:30:00 Test Item Value Reference Range Interpretation Comments Monocytes # (test code 0.8 See_Comment [Aut omated message] The = Monocytes #) system which generated this result tra nsmitted reference range : <=0.8. The reference r kenneth was not used to int erpret this result as normal/abnormal . [facility]stLpaaopfWOOMGZCOMM1844-51-19 22:30:00 Test Item Value Reference Range Interpretation Comments Lymphocytes (test code = Lymphocytes) 18.6 20.0-40.0 [facility]stDjlehqtAMRXVOYIUX8877-57-75 22:30:00 Test Item Value Reference Range Interpretation Comments Lymphocytes # (test code = Lymphocytes 2.3 1.0-5.5 #) [facility]stGyadaqcOWKCBBUBAC0355-48-77 22:30:00 Test Item Value Reference Range Interpretation Comments Basophils (test code = 0.6 See_Comment [Aut omated message] The Basophils) system which ge nerated this result tra nsmitted reference range : <=1.0. The reference r kenneth was not used to int erpret this result as normal/abnormal . [facility]stXcahfvxPREHWDBBQJ7731-74-99 22:30:00 Test Item Value Reference Range Interpretation Comments Segs-Bands # (test code = Segs-Bands #) 8.7 1.5-8.1 [facility]stCtwrmgbSVMCFSINTJ0061-45-64 22:30:00 Test Item Value Reference Range Interpretation Comments Basophils # (test code 0.1 See_Comment [Aut omated message] The = Basophils #) system which generated this result tra nsmitted reference range : <=0.2. The reference r kenneth was not used to int erpret this result as normal/abnormal . [facility]stCcebxulFQGMWALBDO6694-55-49 22:30:00 Test Item Value Reference Range Interpretation Comments Segs (test code = Segs) 72.2 45.0-75.0 [facility]stXapydauJJGFUSOHQE3540-46-27 22:30:00 Test Item Value Reference Range Interpretation Comments Hct (test code = Hct) 40.8 36.0-48.0 [facility]stJgtmyjbOKWTAWPNBM2618-89-44 22:30:00 Test Item Value Reference Range Interpretation Comments MCHC (test code = MCHC) 32.6 32.0-36.0 [facility]stYxebhloBYVPFMRHPA6557-05-69 22:30:00 Test Item Value Reference Range Interpretation Comments MCH (test code = MCH) 29.4 pg 27.0-31.0 [facility]stNoudqtkSUPCPVPEEU8414-34-68 22:30:00 Test Item Value Reference Range Interpretation Comments RDW (test code = RDW) 13.3 11.5-14.5 [facility]stFvbadgsFJXMLUWSZM5825-38-64 22:30:00 Test Item Value Reference Range Interpretation Comments RBC (test code = RBC) 4.53 4.20-5.40 [facility]stLqtdjzrAJUJGKJTKR5388-26-66 22:30:00 Test Item Value Reference Range Interpretation Comments WBC (test code = WBC) 12.1 3.7-10.4 [facility]stAevdfqbQJWBNDWURT3414-40-98 22:30:00 Test Item Value Reference Range Interpretation Comments Hgb (test code = Hgb) 13.3 12.0-16.0 [facility]stTpiafxjMOQEYOBXMQ3401-54-09 22:30:00 Test Item Value Reference Range Interpretation Comments MCV (test code = MCV) 90.2 80.0-98.0 [facility]stPsfdopgXUVGPQIPKC0253-11-82 22:30:00 Test Item Value Reference Range Interpretation Comments MPV (test code = MPV) 8.4 7.4-10.4 [facility]stTyzptjlULQXQIUSHE0991-61-30 22:30:00 Test Item Value Reference Range Interpretation Comments Platelet (test code = Platelet) 322 133-450 [facility]stVulrxptUKPTESMVKP0770-79-79 22:30:00 Test Item Value Reference Range Interpretation Comments PTT (test code = PTT) 25.5 s 22.9-35.8 [facility]stJcyxaocYICSGVQMRE9670-89-11 22:30:00 Test Item Value Reference Range Interpretation Comments PT (test code = PT) 13.4 s 12.0-14.7 [facility]stZttwbstZZAJRGTLYY1398-36-24 22:30:00 Test Item Value Reference Range Interpretation Comments INR (test code = INR) 0.99 0.85-1.17 [facility] [id number] 22:30:00 Test Item Value Reference Range Interpretation Comments ABO/Rh (test code = ABO/Rh) B POS [facility] HospitalInhance [facility] [id number] 22:30:00 Test Item Value Reference Range Interpretation Comments Antibody Scrn (test Negative (04/26/15 4:30 code = Antibody Scrn) PM) [facility]stKjfpmhiAKQCKYIWIP9750-34-70 22:30:00 Test Item Value Reference Range Interpretation Comments Eosinophils (test code = 1.9 See_Comment [A utomated message] The Eosinophils) system which ge nerated this result tra nsmitted reference range : <=4.0. The reference r kenneth was not used to int erpret this result as normal/abnormal . [facility]stEiubhfxWODCZQSNYZ1121-69-82 22:30:00 Test Item Value Reference Range Interpretation Comments Monocytes (test code = Monocytes) 6.7 2.0-12.0 [facility]stEvcmzvvYBCHMHXOYY3825-59-40 22:30:00 Test Item Value Reference Range Interpretation Comments Eosinophils # (test code 0.2 See_Comment [A utomated message] The = Eosinophils #) system whic h generated this result tra nsmitted reference range : <=0.5. The reference r kenneth was not used to int erpret this result as normal/abnormal . [facility]stGczzxlqYGEJXJXHJH6812-94-81 22:30:00 Test Item Value Reference Range Interpretation Comments Monocytes # (test code 0.8 See_Comment [Aut omated message] The = Monocytes #) system which generated this result tra nsmitted reference range : <=0.8. The reference r kenneth was not used to int erpret this result as normal/abnormal . [facility]stBppreskDYAZNMLNNZ5413-29-07 22:30:00 Test Item Value Reference Range Interpretation Comments Lymphocytes (test code = Lymphocytes) 18.6 20.0-40.0 [facility]stNodbdmtXJNYRXRWKQ7886-45-29 22:30:00 Test Item Value Reference Range Interpretation Comments Lymphocytes # (test code = Lymphocytes 2.3 1.0-5.5 #) [facility]stMxurvmcOAWODAMPDR4228-77-34 22:30:00 Test Item Value Reference Range Interpretation Comments Basophils (test code = 0.6 See_Comment [Aut omated message] The Basophils) system which ge nerated this result tra nsmitted reference range : <=1.0. The reference r kenneth was not used to int erpret this result as normal/abnormal . [facility]stWszpyxuTAUFSOFBWL7099-68-53 22:30:00 Test Item Value Reference Range Interpretation Comments Segs-Bands # (test code = Segs-Bands #) 8.7 1.5-8.1 [facility]stMnwnbfuNFQOEFFANI6818-38-54 22:30:00 Test Item Value Reference Range Interpretation Comments Basophils # (test code 0.1 See_Comment [Aut omated message] The = Basophils #) system which generated this result tra nsmitted reference range : <=0.2. The reference r kenneth was not used to int erpret this result as normal/abnormal . [facility]stJwmwwvfYCHHVHWEPS1099-29-08 22:30:00 Test Item Value Reference Range Interpretation Comments Segs (test code = Segs) 72.2 45.0-75.0 [facility]stQcjfqgvNYJFLHSUZN6305-53-53 22:30:00 Test Item Value Reference Range Interpretation Comments Hct (test code = Hct) 40.8 36.0-48.0 [facility]stRnaaiqsZMVTNLSRND0760-48-97 22:30:00 Test Item Value Reference Range Interpretation Comments MCHC (test code = MCHC) 32.6 32.0-36.0 [facility]MvaffxaDATVWUFONF3862-39-13 22:30:00 Test Item Value Reference Range Interpretation Comments MCH (test code = MCH) 29.4 pg 27.0-31.0 [facility]stQmdpvuwTAARASFHCI0206-49-73 22:30:00 Test Item Value Reference Range Interpretation Comments RDW (test code = RDW) 13.3 11.5-14.5 [facility]stHkgdwovFJUXKZNKSM0531-98-04 22:30:00 Test Item Value Reference Range Interpretation Comments RBC (test code = RBC) 4.53 4.20-5.40 [facility]stHksdpgsLLOKBNIFGX1802-64-93 22:30:00 Test Item Value Reference Range Interpretation Comments WBC (test code = WBC) 12.1 3.7-10.4 [facility]stVlxyeneODNYXNPQHA6388-07-10 22:30:00 Test Item Value Reference Range Interpretation Comments Hgb (test code = Hgb) 13.3 12.0-16.0 [facility]stNbchdvdRMDUMHELUA5289-97-65 22:30:00 Test Item Value Reference Range Interpretation Comments MCV (test code = MCV) 90.2 80.0-98.0 [facility]stMmcjcvnIHJHLVDNTM9975-21-27 22:30:00 Test Item Value Reference Range Interpretation Comments MPV (test code = MPV) 8.4 7.4-10.4 [facility]stUyeirlxNNTBJOJQGF2834-12-89 22:30:00 Test Item Value Reference Range Interpretation Comments Platelet (test code = Platelet) 322 133-450 [facility]stUenabrtOCEONZQQIS0456-76-27 22:30:00 Test Item Value Reference Range Interpretation Comments PTT (test code = PTT) 25.5 s 22.9-35.8 [facility]stLfmxkdhHHPJMDJGZG0307-37-53 22:30:00 Test Item Value Reference Range Interpretation Comments PT (test code = PT) 13.4 s 12.0-14.7 [facility]stUxorfapPKKSOGWOBV6811-42-16 22:30:00 Test Item Value Reference Range Interpretation Comments INR (test code = INR) 0.99 0.85-1.17 [facility] SFBOGDE3583-03-79 22:30:00 Test Item Value Reference Range Interpretation Comments ABO/Rh (test code = ABO/Rh) B POS [facility] BANK [id number] 22:30:00 Test Item Value Reference Range Interpretation Comments Antibody Scrn (test Negative (04/26/15 4:30 code = Antibody Scrn) PM) [facility]stSohrtxeBFPYENPROJ7834-54-66 22:30:00 Test Item Value Reference Range Interpretation Comments Eosinophils (test code = 1.9 See_Comment [A utomated message] The Eosinophils) system which ge nerated this result tra nsmitted reference range : <=4.0. The reference r kenneth was not used to int erpret this result as normal/abnormal . [facility]stUwfptvzTQXACNMDVA7845-61-12 22:30:00 Test Item Value Reference Range Interpretation Comments Monocytes (test code = Monocytes) 6.7 2.0-12.0 [facility]stRvpgvqgTTJWDHDFNX1090-23-96 22:30:00 Test Item Value Reference Range Interpretation Comments Eosinophils # (test code 0.2 See_Comment [A utomated message] The = Eosinophils #) system whic h generated this result tra nsmitted reference range : <=0.5. The reference r kenneth was not used to int erpret this result as normal/abnormal . [facility]stImmfziaCYBEDCZBFR9067-16-15 22:30:00 Test Item Value Reference Range Interpretation Comments Monocytes # (test code 0.8 See_Comment [Aut omated message] The = Monocytes #) system which generated this result tra nsmitted reference range : <=0.8. The reference r kenneth was not used to int erpret this result as normal/abnormal . [facility]stWrxhqryRZBIPUFHJR8864-17-47 22:30:00 Test Item Value Reference Range Interpretation Comments Lymphocytes (test code = Lymphocytes) 18.6 20.0-40.0 [facility]stIjoghotRFWXJYXUYS5469-19-03 22:30:00 Test Item Value Reference Range Interpretation Comments Lymphocytes # (test code = Lymphocytes 2.3 1.0-5.5 #) [facility]stPuimpwoMUHMIEQNDW8664-92-31 22:30:00 Test Item Value Reference Range Interpretation Comments Basophils (test code = 0.6 See_Comment [Aut omated message] The Basophils) system which ge nerated this result tra nsmitted reference range : <=1.0. The reference r kenneth was not used to int erpret this result as normal/abnormal . [facility]stVomidhzWJFKMBQJRA6234-98-63 22:30:00 Test Item Value Reference Range Interpretation Comments Segs-Bands # (test code = Segs-Bands #) 8.7 1.5-8.1 [facility]stUftqqtgTKGPPJKCBE5775-43-94 22:30:00 Test Item Value Reference Range Interpretation Comments Basophils # (test code 0.1 See_Comment [Aut omated message] The = Basophils #) system which generated this result tra nsmitted reference range : <=0.2. The reference r kenneth was not used to int erpret this result as normal/abnormal . [facility]stFmlxnubYVQQHPZZPS7231-84-69 22:30:00 Test Item Value Reference Range Interpretation Comments Segs (test code = Segs) 72.2 45.0-75.0 [facility]stSnvubjsGYVNSTYAPY0530-20-15 22:30:00 Test Item Value Reference Range Interpretation Comments Hct (test code = Hct) 40.8 36.0-48.0 [facility]stDynrqtbVWKFLTPVIG2621-93-78 22:30:00 Test Item Value Reference Range Interpretation Comments MCHC (test code = MCHC) 32.6 32.0-36.0 [facility]stHpseuxlMLRDLZQHEG4230-10-14 22:30:00 Test Item Value Reference Range Interpretation Comments MCH (test code = MCH) 29.4 pg 27.0-31.0 [facility]stWjnhqvjCILIDSNATJ1721-40-24 22:30:00 Test Item Value Reference Range Interpretation Comments RDW (test code = RDW) 13.3 11.5-14.5 [facility]stGrcsrzmJRTNCEBQQU7941-98-97 22:30:00 Test Item Value Reference Range Interpretation Comments RBC (test code = RBC) 4.53 4.20-5.40 [facility]stPdzfwykSORMPYAFCR7024-97-28 22:30:00 Test Item Value Reference Range Interpretation Comments WBC (test code = WBC) 12.1 3.7-10.4 [facility]stSovvpwxMQQGPKTEPK9550-38-62 22:30:00 Test Item Value Reference Range Interpretation Comments Hgb (test code = Hgb) 13.3 12.0-16.0 [facility]stMmcbvwhGSWISZAXYL8281-55-37 22:30:00 Test Item Value Reference Range Interpretation Comments MCV (test code = MCV) 90.2 80.0-98.0 [facility]stNkeutxmGMQPJECGUK2450-42-70 22:30:00 Test Item Value Reference Range Interpretation Comments MPV (test code = MPV) 8.4 7.4-10.4 [facility]stEldfzoyHRMZFTYYNY1645-80-94 22:30:00 Test Item Value Reference Range Interpretation Comments Platelet (test code = Platelet) 322 133-450 [facility]stUtgavqaHPLHOBBHXE8034-95-18 22:30:00 Test Item Value Reference Range Interpretation Comments PTT (test code = PTT) 25.5 s 22.9-35.8 [facility]stBpetnqxJVNHOOGQQP3578-25-40 22:30:00 Test Item Value Reference Range Interpretation Comments PT (test code = PT) 13.4 s 12.0-14.7 [facility]stNlqnwghVNRKHXBYOV3552-65-85 22:30:00 Test Item Value Reference Range Interpretation Comments INR (test code = INR) 0.99 0.85-1.17 [facility] [id number] 22:30:00 Test Item Value Reference Range Interpretation Comments ABO/Rh (test code = ABO/Rh) B [facility] [id number] 22:30:00 Test Item Value Reference Range Interpretation Comments Antibody Scrn (test Negative (04/26/15 4:30 code = Antibody Scrn) PM) [facility]stYywutgvCTIUNVPKAN1974-85-67 22:30:00 Test Item Value Reference Range Interpretation Comments Eosinophils (test code = 1.9 See_Comment [A utomated message] The Eosinophils) system which ge nerated this result tra nsmitted reference range : <=4.0. The reference r kenneth was not used to int erpret this result as normal/abnormal . [facility]stIzjbofeGRYUBGVBAF8957-77-96 22:30:00 Test Item Value Reference Range Interpretation Comments Monocytes (test code = Monocytes) 6.7 2.0-12.0 [facility]stFhwlzixQKAOLHXOJB1314-34-66 22:30:00 Test Item Value Reference Range Interpretation Comments Eosinophils # (test code 0.2 See_Comment [A utomated message] The = Eosinophils #) system whic h generated this result tra nsmitted reference range : <=0.5. The reference r kenneth was not used to int erpret this result as normal/abnormal . [facility]stUblefpjIHMXKOVWVA3503-62-10 22:30:00 Test Item Value Reference Range Interpretation Comments Monocytes # (test code 0.8 See_Comment [Aut omated message] The = Monocytes #) system which generated this result tra nsmitted reference range : <=0.8. The reference r kenneth was not used to int erpret this result as normal/abnormal . [facility]stNobjdrrIXDEDGIWPN9691-02-95 22:30:00 Test Item Value Reference Range Interpretation Comments Lymphocytes (test code = Lymphocytes) 18.6 20.0-40.0 [facility]stAstmqfsCGTSEOIFQW0944-01-28 22:30:00 Test Item Value Reference Range Interpretation Comments Lymphocytes # (test code = Lymphocytes 2.3 1.0-5.5 #) [facility]stAcjtxwlUULBPRDSFL2357-03-99 22:30:00 Test Item Value Reference Range Interpretation Comments Basophils (test code = 0.6 See_Comment [Aut omated message] The Basophils) system which ge nerated this result tra nsmitted reference range : <=1.0. The reference r kenneth was not used to int erpret this result as normal/abnormal . [facility]stBcpnpudNPQDDBVIET5367-02-62 22:30:00 Test Item Value Reference Range Interpretation Comments Segs-Bands # (test code = Segs-Bands #) 8.7 1.5-8.1 [facility]stLlxbwybNDVQJRLQXH8004-67-33 22:30:00 Test Item Value Reference Range Interpretation Comments Basophils # (test code 0.1 See_Comment [Aut omated message] The = Basophils #) system which generated this result tra nsmitted reference range : <=0.2. The reference r kenneth was not used to int erpret this result as normal/abnormal . [facility]stPcibjblICDAJQLOVE3765-90-34 22:30:00 Test Item Value Reference Range Interpretation Comments Segs (test code = Segs) 72.2 45.0-75.0 [facility]stSankkyrAYRVFXTDHU6488-79-47 22:30:00 Test Item Value Reference Range Interpretation Comments Hct (test code = Hct) 40.8 36.0-48.0 [facility]stGbzxnlbXQHQWTOKIH3398-35-56 22:30:00 Test Item Value Reference Range Interpretation Comments MCHC (test code = MCHC) 32.6 32.0-36.0 [facility]stZsacxfsQIAPCZKZPM7019-99-59 22:30:00 Test Item Value Reference Range Interpretation Comments MCH (test code = MCH) 29.4 pg 27.0-31.0 [facility]stPcvghrqWXGCESVQYP3314-04-01 22:30:00 Test Item Value Reference Range Interpretation Comments RDW (test code = RDW) 13.3 11.5-14.5 [facility]stAhqhncfEJWIUXWNEI3063-20-18 22:30:00 Test Item Value Reference Range Interpretation Comments RBC (test code = RBC) 4.53 4.20-5.40 [facility]stQpmzctzWFPPOLUROR7253-74-28 22:30:00 Test Item Value Reference Range Interpretation Comments WBC (test code = WBC) 12.1 3.7-10.4 [facility]stHhcwejvHWLXEOATFG8108-50-79 22:30:00 Test Item Value Reference Range Interpretation Comments Hgb (test code = Hgb) 13.3 12.0-16.0 [facility]stFqxapbbDMDMXPTGKT8000-23-31 22:30:00 Test Item Value Reference Range Interpretation Comments MCV (test code = MCV) 90.2 80.0-98.0 [facility]stFpwcyjtOWQCNKDELB0485-29-94 22:30:00 Test Item Value Reference Range Interpretation Comments MPV (test code = MPV) 8.4 7.4-10.4 [facility]stZftzuyrLYTGKUYLUW7529-90-33 22:30:00 Test Item Value Reference Range Interpretation Comments Platelet (test code = Platelet) 322 133-450 [facility]stFnzuegwUHPHJXNJAM0693-91-53 22:30:00 Test Item Value Reference Range Interpretation Comments PTT (test code = PTT) 25.5 s 22.9-35.8 [facility] [facility]yngwnQKVOQABJMU6408-94-86 22:30:00 Test Item Value Reference Range Interpretation Comments PT (test code = PT) 13.4 s 12.0-14.7 [facility]stOgrixlgUUAQPANZUZ1005-64-90 22:30:00 Test Item Value Reference Range Interpretation Comments INR (test code = INR) 0.99 0.85-1.17 [facility] [id number] 01:33:00 Test Item Value Reference Range Interpretation Comments Lipase Lvl (test code = Lipase Lvl) 127 73-393 [facility]JpdkqqsFAYZLCAUAPLD3105-16-40 01:33:00 Test Item Value Reference Range Interpretation Comments Potassium Lvl (test code = Potassium 3.9 3.5-5.1 Lvl) [facility] HospitalDmuetvtOQZTVPDDZNGN7895-59-72 01:33:00 Test Item Value Reference Range Interpretation Comments CO2 (test code = CO2) 25 24-32 [facility] HospitalZyqrxvjLBBXEOELYZUU3334-25-91 01:33:00 Test Item Value Reference Range Interpretation Comments eGFR (test code = eGFR) 119 [facility] HospitalVteetuxDUNWJCKPOFMM6624-43-46 01:33:00 Test Item Value Reference Range Interpretation Comments AST (test code = AST) 13 See_Comment [Auto mated message] The system which ge nerated this result transmit regi reference range : <=37. The reference range was not used to interpr et this result as nela l/abnormal. [facility] HospitalIouqdiiCAUDVKBNXAZX2814-33-25 01:33:00 Test Item Value Reference Range Interpretation Comments Bili Total (test code = Bili Total) 0.3 0.2-1.3 [facility] HospitalGhejfdoDUTKZBFAFQGB1956-74-32 01:33:00 Test Item Value Reference Range Interpretation Comments Alk Phos (test code = Alk Phos) 99 39-136 [facility] HospitalLyxpponWAFBXEIBCSYZ5947-95-85 01:33:00 Test Item Value Reference Range Interpretation Comments Calcium Lvl (test code = Calcium Lvl) 8.6 8.5-10.5 [facility] HospitalAescprqSRANRXVJKAHC7864-31-73 01:33:00 Test Item Value Reference Range Interpretation Comments ALT (test code = ALT) 31 See_Comment [Auto mated message] The system which ge nerated this result transmit regi reference range : <=65. The reference range was not used to interpr et this result as nela l/abnormal. [facility] HospitalQzsodfySESOOWEMTUDA5972-58-90 01:33:00 Test Item Value Reference Range Interpretation Comments Albumin Lvl (test code = Albumin Lvl) 3.7 3.5-5.0 [facility] HospitalSdwnuzhYINELDIJJHMV5803-42-96 01:33:00 Test Item Value Reference Range Interpretation Comments Total Protein (test code = Total 8.2 6.4-8.4 Protein) [facility] HospitalDejynyyHMKJOHMLANYP0955-84-45 01:33:00 Test Item Value Reference Range Interpretation Comments Glucose Lvl (test code = Glucose Lvl) 105 70-99 [facility] HospitalOtojwypEXZRTUWNEIBE9753-72-50 01:33:00 Test Item Value Reference Range Interpretation Comments BUN (test code = BUN) 10 7-22 [facility] HospitalPtpdlohBGLWLGXIEWFE0329-76-63 01:33:00 Test Item Value Reference Range Interpretation Comments Sodium Lvl (test code = Sodium Lvl) 137 135-145 [facility] HospitalMiyzwtoHOCUACOYVEFC7945-54-06 01:33:00 Test Item Value Reference Range Interpretation Comments Creatinine Lvl (test code = Creatinine 0.7 0.5-1.4 Lvl) [facility] HospitalHrwfjbkGZAAGOCFAXWQ9707-42-68 01:33:00 Test Item Value Reference Range Interpretation Comments Chloride Lvl (test code = Chloride Lvl) 106 95-109 [facility] HospitalVutplidRCBZAQMLJICE4822-58-12 01:33:00 Test Item Value Reference Range Interpretation Comments AGAP (test code = AGAP) 9.9 10.0-20.0 [facility] HospitalGoysqsuATQCPSACGTWH9985-15-66 01:33:00 Test Item Value Reference Range Interpretation Comments A/G Ratio (test code = A/G Ratio) 0.8 0.7-1.6 [facility] HospitalRboldbmMKOITCYTVHET8447-09-75 01:33:00 Test Item Value Reference Range Interpretation Comments Globulin (test code = Globulin) 4.5 2.0-4.0 [facility] HospitalQkbjnqyEPCFKWGPPGYH0829-65-90 01:33:00 Test Item Value Reference Range Interpretation Comments B/C Ratio (test code = B/C Ratio) 14 6-25 [facility]stQpewhcuBVKMKQVIDD5618-21-35 01:33:00 Test Item Value Reference Range Interpretation Comments Platelet (test code = Platelet) 306 133-450 [facility] HillcrestSsgulitJUKGSREOXD8574-59-10 01:33:00 Test Item Value Reference Range Interpretation Comments RDW (test code = RDW) 12.8 11.5-14.5 [facility]crestRpohggoQXNQIYYOZO2573-27-15 01:33:00 Test Item Value Reference Range Interpretation Comments MCH (test code = MCH) 29.4 pg 27.0-31.0 [facility]stMtthglhGNHRRYLHDS0157-19-30 01:33:00 Test Item Value Reference Range Interpretation Comments MCHC (test code = MCHC) 32.0 32.0-36.0 [facility]stYmfcactYRKEWJOPAQ6184-40-14 01:33:00 Test Item Value Reference Range Interpretation Comments Hct (test code = Hct) 41.3 36.0-48.0 [facility]stDsfxzrbDMVIEBGRVQ1260-13-91 01:33:00 Test Item Value Reference Range Interpretation Comments MCV (test code = MCV) 91.8 80.0-98.0 [facility]stOxdkvifPOXRSSAEHM5068-18-71 01:33:00 Test Item Value Reference Range Interpretation Comments MPV (test code = MPV) 8.2 7.4-10.4 [facility]crestCqnrzgcYBOJTMSESC1087-51-82 01:33:00 Test Item Value Reference Range Interpretation Comments WBC (test code = WBC) 12.1 3.7-10.4 [facility]stOjywlisUNTRQRJVVP6372-89-79 01:33:00 Test Item Value Reference Range Interpretation Comments RBC (test code = RBC) 4.50 4.20-5.40 [facility]crestFdlnphaZKACDZJITI7095-23-72 01:33:00 Test Item Value Reference Range Interpretation Comments Hgb (test code = Hgb) 13.2 12.0-16.0 [facility]crestAbeypudHWQDLMZIBO9341-80-75 01:33:00 Test Item Value Reference Range Interpretation Comments Eosinophils # (test code 0.2 See_Comment [A utomated message] The = Eosinophils #) system whic h generated this result tra nsmitted reference range : <=0.5. The reference r kenneth was not used to int erpret this result as normal/abnormal . [facility]stWkndehrNGMJCCFBRL3146-66-31 01:33:00 Test Item Value Reference Range Interpretation Comments Basophils # (test code 0.1 See_Comment [Aut omated message] The = Basophils #) system which generated this result tra nsmitted reference range : <=0.2. The reference r kenneth was not used to int erpret this result as normal/abnormal . [facility]stAkmptpsKFAWQDCCJC6680-86-17 01:33:00 Test Item Value Reference Range Interpretation Comments Eosinophils (test code = 1.9 See_Comment [A utomated message] The Eosinophils) system which ge nerated this result tra nsmitted reference range : <=4.0. The reference r kenneth was not used to int erpret this result as normal/abnormal . [facility]stJvqjtajEBDRCLGIGP0251-27-22 01:33:00 Test Item Value Reference Range Interpretation Comments Monocytes # (test code 0.7 See_Comment [Aut omated message] The = Monocytes #) system which generated this result tra nsmitted reference range : <=0.8. The reference r kenneth was not used to int erpret this result as normal/abnormal . [facility]stCyhzviqMWONKKBMXE9982-38-91 01:33:00 Test Item Value Reference Range Interpretation Comments Basophils (test code = 0.5 See_Comment [Aut omated message] The Basophils) system which ge nerated this result tra nsmitted reference range : <=1.0. The reference r kenneth was not used to int erpret this result as normal/abnormal . [facility]stFepgpcePZDUDNDOZJ6303-83-37 01:33:00 Test Item Value Reference Range Interpretation Comments Segs-Bands # (test code = Segs-Bands #) 8.4 1.5-8.1 [facility]crestJqdsmxrCLACFQDCLT4136-66-11 01:33:00 Test Item Value Reference Range Interpretation Comments Lymphocytes # (test code = Lymphocytes 2.7 1.0-5.5 #) [facility]crestZbbzqsvDNGYOZXMLX9592-02-90 01:33:00 Test Item Value Reference Range Interpretation Comments Segs (test code = Segs) 69.4 45.0-75.0 [facility]crestBejxeibORRPRLNHYO0901-31-14 01:33:00 Test Item Value Reference Range Interpretation Comments Lymphocytes (test code = Lymphocytes) 22.2 20.0-40.0 [facility]stFdpxcmvQSLPEYGNYJ8846-45-66 01:33:00 Test Item Value Reference Range Interpretation Comments Monocytes (test code = Monocytes) 6.0 2.0-12.0 [facility] AND [id number] 01:33:00 Test Item Value Reference Range Interpretation Comments UA Renal Epi (test code = UA Renal 0-2 /LPF Epi) [facility] AND [id number] 01:33:00 Test Item Value Reference Range Interpretation Comments UA Bacteria (test code = None Seen (04/18/15 UA Bacteria) 8:33 PM) [facility] AND [id number] 01:33:00 Test Item Value Reference Range Interpretation Comments UA RBC (test code = 0-2 /HPF See_Comment [Automa regi message] The UA RBC) system which ge nerated this result tra nsmitted reference range : <=2. The reference range was not used to interpr et this result as nela l/abnormal. [facility] AND [id number] 01:33:00 Test Item Value Reference Range Interpretation Comments UA WBC (test code = UA WBC) 6-10 /HPF [facility] AND [id number] 01:33:00 Test Item Value Reference Range Interpretation Comments UA Sq Epi (test code = UA Sq Epi) Rare /LPF [facility] AND [id number] 01:33:00 Test Item Value Reference Range Interpretation Comments UA Blood (test code = Small *ABN*(04/18/15 UA Blood) 8:33 PM) [facility] AND [id number] 01:33:00 Test Item Value Reference Range Interpretation Comments UA Ketones (test code Negative *NA*(04/18/15 = UA Ketones) 8:33 PM) [facility] AND [id number] 01:33:00 Test Item Value Reference Range Interpretation Comments UA Urobilinogen (test code = UA 0.2 0.1-1.0 Urobilinogen) [facility] AND [id number] 01:33:00 Test Item Value Reference Range Interpretation Comments UA Bili (test code = Negative *NA*(04/18/15 UA Bili) 8:33 PM) [facility] AND [id number] 01:33:00 Test Item Value Reference Range Interpretation Comments UA Nitrite (test code Negative (04/18/15 8:33 = UA Nitrite) PM) [facility] AND [id number] 01:33:00 Test Item Value Reference Range Interpretation Comments UA Leuk Est (test code Trace *ABN*(04/18/15 = UA Leuk Est) 8:33 PM) [facility] AND [id number] 01:33:00 Test Item Value Reference Range Interpretation Comments UA Glucose (test code Negative (04/18/15 8:33 = UA Glucose) PM) [facility] AND [id number] 01:33:00 Test Item Value Reference Range Interpretation Comments UA Protein (test code Negative (04/18/15 8:33 = UA Protein) PM) [facility] AND [id number] 01:33:00 Test Item Value Reference Range Interpretation Comments UA Color (test code = Yellow *NA*(04/18/15 UA Color) 8:33 PM) [facility] [id number] 01:33:00 Test Item Value Reference Range Interpretation Comments UA Turbidity (test code = Clear (04/18/15 8:33 UA Turbidity) PM) [facility] AND [id number] 01:33:00 Test Item Value Reference Range Interpretation Comments UA pH (test code = UA pH) 6.5 1 5.0-8.0 [facility] [id number] 01:33:00 Test Item Value Reference Range Interpretation Comments UA Spec Grav (test code = UA Spec 1.015 1 Grav) [facility] [id number] 01:33:00 Test Item Value Reference Range Interpretation Comments U Preg (test code = U Negative (04/18/15 8:33 Preg) PM) [facility] AntonioCHEM [id number] 01:33:00 Test Item Value Reference Range Interpretation Comments Lipase Lvl (test code = Lipase Lvl) 127 73-393 [facility] SystemVktfzbyHGCXUPKKYTNO0161-06-98 01:33:00 Test Item Value Reference Range Interpretation Comments Potassium Lvl (test code = Potassium 3.9 3.5-5.1 Lvl) [facility] HospitalJpggfbeRAWYWDSUYYVX0504-12-29 01:33:00 Test Item Value Reference Range Interpretation Comments CO2 (test code = CO2) 25 24-32 [facility] HospitalOmunhnfAOVDQLENHUMH7262-37-12 01:33:00 Test Item Value Reference Range Interpretation Comments eGFR (test code = eGFR) 119 [facility] HospitalJftptlpYRFFJXGNSNTN0790-30-60 01:33:00 Test Item Value Reference Range Interpretation Comments AST (test code = AST) 13 See_Comment [Auto mated message] The system which ge nerated this result transmit regi reference range : <=37. The reference range was not used to interpr et this result as nela l/abnormal. [facility] HospitalSrpypzaDLGUYNOTZCMG6395-99-10 01:33:00 Test Item Value Reference Range Interpretation Comments Bili Total (test code = Bili Total) 0.3 0.2-1.3 [facility] HospitalFouyawoYHWXAHLARRUE6942-93-21 01:33:00 Test Item Value Reference Range Interpretation Comments Alk Phos (test code = Alk Phos) 99 39-136 [facility] HospitalExhkkekVQLLIGZUOBNZ1201-62-59 01:33:00 Test Item Value Reference Range Interpretation Comments Calcium Lvl (test code = Calcium Lvl) 8.6 8.5-10.5 [facility] HospitalMnwdxzhTDTIOZSYUFPK5874-96-84 01:33:00 Test Item Value Reference Range Interpretation Comments ALT (test code = ALT) 31 See_Comment [Auto mated message] The system which ge nerated this result transmit regi reference range : <=65. The reference range was not used to interpr et this result as nela l/abnormal. [facility] HospitalAgpvdoiMMFMWHNPSZUX7433-96-04 01:33:00 Test Item Value Reference Range Interpretation Comments Albumin Lvl (test code = Albumin Lvl) 3.7 3.5-5.0 [facility] HospitalWskbkbaHQBBOEDXYGUE7552-61-96 01:33:00 Test Item Value Reference Range Interpretation Comments Total Protein (test code = Total 8.2 6.4-8.4 Protein) [facility] HospitalPgqrkhsTTWYFJZXFTJP2037-24-73 01:33:00 Test Item Value Reference Range Interpretation Comments Glucose Lvl (test code = Glucose Lvl) 105 70-99 [facility] HospitalSjeowstZWDUGWWLOKRM3537-28-07 01:33:00 Test Item Value Reference Range Interpretation Comments BUN (test code = BUN) 10 7-22 [facility] HospitalFvuaessMAFFTUZMCCRS7054-72-40 01:33:00 Test Item Value Reference Range Interpretation Comments Sodium Lvl (test code = Sodium Lvl) 137 135-145 [facility] HospitalLutedfzALLAZQAODALN8931-98-33 01:33:00 Test Item Value Reference Range Interpretation Comments Creatinine Lvl (test code = Creatinine 0.7 0.5-1.4 Lvl) [facility] HospitalMmqmoxgOKYXQUTDTEUT5612-51-67 01:33:00 Test Item Value Reference Range Interpretation Comments Chloride Lvl (test code = Chloride Lvl) 106 95-109 [facility] HospitalWqlavkaUJMDHYRGUJKX7294-61-21 01:33:00 Test Item Value Reference Range Interpretation Comments AGAP (test code = AGAP) 9.9 10.0-20.0 [facility] HospitalGfdaqcpCMLQNSVRYKXD9733-47-82 01:33:00 Test Item Value Reference Range Interpretation Comments A/G Ratio (test code = A/G Ratio) 0.8 0.7-1.6 [facility] HospitalZslmduvNXUMGSAFCHJE9122-80-17 01:33:00 Test Item Value Reference Range Interpretation Comments Globulin (test code = Globulin) 4.5 2.0-4.0 [facility] HospitalCjwfrszKTFCZJGYQTPS1655-29-09 01:33:00 Test Item Value Reference Range Interpretation Comments B/C Ratio (test code = B/C Ratio) 14 6-25 [facility]stFresvfiQTKYQHKWFQ5074-12-20 01:33:00 Test Item Value Reference Range Interpretation Comments Platelet (test code = Platelet) 306 133-450 [facility]stOvgfjqzEZAFQINLFU6486-41-89 01:33:00 Test Item Value Reference Range Interpretation Comments RDW (test code = RDW) 12.8 11.5-14.5 [facility]stZfqyudhVIQMJOCCIW3122-43-55 01:33:00 Test Item Value Reference Range Interpretation Comments MCH (test code = MCH) 29.4 pg 27.0-31.0 [facility]stCeckhexQWLDQVVNGU0122-85-60 01:33:00 Test Item Value Reference Range Interpretation Comments MCHC (test code = MCHC) 32.0 32.0-36.0 [facility]crestLrrvakwBQWYFDCSBS8672-70-43 01:33:00 Test Item Value Reference Range Interpretation Comments Hct (test code = Hct) 41.3 36.0-48.0 [facility]stBgritpzIUEFPOCECH0648-12-77 01:33:00 Test Item Value Reference Range Interpretation Comments MCV (test code = MCV) 91.8 80.0-98.0 [facility]stFpaokeaHDUQHZJLXG2415-95-44 01:33:00 Test Item Value Reference Range Interpretation Comments MPV (test code = MPV) 8.2 7.4-10.4 [facility]stUdejeavRWSEEUUSAQ8855-51-21 01:33:00 Test Item Value Reference Range Interpretation Comments WBC (test code = WBC) 12.1 3.7-10.4 [facility]stEvbxtpxXNERLPCXVA8652-47-94 01:33:00 Test Item Value Reference Range Interpretation Comments RBC (test code = RBC) 4.50 4.20-5.40 [facility]stRglabscRKKCHPZJIN0206-03-47 01:33:00 Test Item Value Reference Range Interpretation Comments Hgb (test code = Hgb) 13.2 12.0-16.0 [facility]stSbafbzkPNSDNMRFJM5068-13-87 01:33:00 Test Item Value Reference Range Interpretation Comments Eosinophils # (test code 0.2 See_Comment [A utomated message] The = Eosinophils #) system wh h generated this result tra nsmitted reference range : <=0.5. The reference r kenneth was not used to int erpret this result as normal/abnormal . [facility]stCffsiscYLGIOHBTEK7225-12-39 01:33:00 Test Item Value Reference Range Interpretation Comments Basophils # (test code 0.1 See_Comment [Aut omated message] The = Basophils #) system which generated this result tra nsmitted reference range : <=0.2. The reference r kenneth was not used to int erpret this result as normal/abnormal . [facility]stJgwcsfuMEDSIMBYYF1877-71-28 01:33:00 Test Item Value Reference Range Interpretation Comments Eosinophils (test code = 1.9 See_Comment [A utomated message] The Eosinophils) system which ge nerated this result tra nsmitted reference range : <=4.0. The reference r kenneth was not used to int erpret this result as normal/abnormal . [facility]stYphegweDTECSNZTIE9805-65-87 01:33:00 Test Item Value Reference Range Interpretation Comments Monocytes # (test code 0.7 See_Comment [Aut omated message] The = Monocytes #) system which generated this result tra nsmitted reference range : <=0.8. The reference r kenneth was not used to int erpret this result as normal/abnormal . [facility]stScyaqlaEIEHGMDKEB3658-78-69 01:33:00 Test Item Value Reference Range Interpretation Comments Basophils (test code = 0.5 See_Comment [Aut omated message] The Basophils) system which ge nerated this result tra nsmitted reference range : <=1.0. The reference r kenneth was not used to int erpret this result as normal/abnormal . [facility]stFsllyykQUXZBBDUBE2782-34-21 01:33:00 Test Item Value Reference Range Interpretation Comments Segs-Bands # (test code = Segs-Bands #) 8.4 1.5-8.1 [facility]stVgrtsfnRDIIXHZZZE1234-96-39 01:33:00 Test Item Value Reference Range Interpretation Comments Lymphocytes # (test code = Lymphocytes 2.7 1.0-5.5 #) [facility]stLoxfmgwQAXTUACUZC6892-15-56 01:33:00 Test Item Value Reference Range Interpretation Comments Segs (test code = Segs) 69.4 45.0-75.0 [facility]stAdjmjkoFYINTRAPWR3776-76-04 01:33:00 Test Item Value Reference Range Interpretation Comments Lymphocytes (test code = Lymphocytes) 22.2 20.0-40.0 [facility]stVwhoydmJSMOJKAXGK9372-53-50 01:33:00 Test Item Value Reference Range Interpretation Comments Monocytes (test code = Monocytes) 6.0 2.0-12.0 [facility] AND [id number] 01:33:00 Test Item Value Reference Range Interpretation Comments UA Renal Epi (test code = UA Renal 0-2 /LPF Epi) [facility] AND [id number] 01:33:00 Test Item Value Reference Range Interpretation Comments UA Bacteria (test code = None Seen (04/18/15 UA Bacteria) 8:33 PM) [facility] AND [id number] 01:33:00 Test Item Value Reference Range Interpretation Comments UA RBC (test code = 0-2 /HPF See_Comment [Automa regi message] The UA RBC) system which ge nerated this result tra nsmitted reference range : <=2. The reference range was not used to interpr et this result as nela l/abnormal. [facility] AND [id number] 01:33:00 Test Item Value Reference Range Interpretation Comments UA WBC (test code = UA WBC) 6-10 /HPF [facility] AND [id number] 01:33:00 Test Item Value Reference Range Interpretation Comments UA Sq Epi (test code = UA Sq Epi) Rare /LPF [facility] AND [id number] 01:33:00 Test Item Value Reference Range Interpretation Comments UA Blood (test code = Small *ABN*(04/18/15 UA Blood) 8:33 PM) [facility] AND [id number] 01:33:00 Test Item Value Reference Range Interpretation Comments UA Ketones (test code Negative *NA*(04/18/15 = UA Ketones) 8:33 PM) [facility] AND [id number] 01:33:00 Test Item Value Reference Range Interpretation Comments UA Urobilinogen (test code = UA 0.2 0.1-1.0 [facility]ilinogen) [facility] [id number] 01:33:00 Test Item Value Reference Range Interpretation Comments UA Bili (test code = Negative *NA*(04/18/15 UA Bili) 8:33 PM) [facility] [id number] 01:33:00 Test Item Value Reference Range Interpretation Comments UA Nitrite (test code Negative (04/18/15 8:33 = UA Nitrite) PM) [facility] [id number] 01:33:00 Test Item Value Reference Range Interpretation Comments UA Leuk Est (test code Trace *ABN*(04/18/15 = UA Leuk Est) 8:33 PM) [facility] [id number] 01:33:00 Test Item Value Reference Range Interpretation Comments UA Glucose (test code Negative (04/18/15 8:33 = UA Glucose) PM) [facility] [id number] 01:33:00 Test Item Value Reference Range Interpretation Comments UA Protein (test code Negative (04/18/15 8:33 = UA Protein) PM) [facility] [id number] 01:33:00 Test Item Value Reference Range Interpretation Comments UA Color (test code = Yellow *NA*(04/18/15 UA Color) 8:33 PM) [facility] [id number] 01:33:00 Test Item Value Reference Range Interpretation Comments UA Turbidity (test code = Clear (04/18/15 8:33 UA Turbidity) PM) [facility] AND [id number] 01:33:00 Test Item Value Reference Range Interpretation Comments UA pH (test code = UA pH) 6.5 1 5.0-8.0 [facility] [id number] 01:33:00 Test Item Value Reference Range Interpretation Comments UA Spec Grav (test code = UA Spec 1.015 1 Grav) [facility] [id number] 01:33:00 Test Item Value Reference Range Interpretation Comments U Preg (test code = U Negative (04/18/15 8:33 Preg) PM) [facility]annCHEM [id number] 01:33:00 Test Item Value Reference Range Interpretation Comments Lipase Lvl (test code = Lipase Lvl) 127 73-393 [facility] HospitalGpkokjqTPDXDGLXNIWV6263-07-02 01:33:00 Test Item Value Reference Range Interpretation Comments Potassium Lvl (test code = Potassium 3.9 3.5-5.1 Lvl) [facility] HospitalPizoradZENYKPBBHCUC3607-08-20 01:33:00 Test Item Value Reference Range Interpretation Comments CO2 (test code = CO2) 25 24-32 [facility] HospitalZjfkaajIMCKCQWXQNVT9526-23-59 01:33:00 Test Item Value Reference Range Interpretation Comments eGFR (test code = eGFR) 119 [facility] HospitalRaspgtpNVEUEBXKXXNW7095-52-88 01:33:00 Test Item Value Reference Range Interpretation Comments AST (test code = AST) 13 See_Comment [Auto mated message] The system which ge nerated this result transmit regi reference range : <=37. The reference range was not used to interpr et this result as nela l/abnormal. [facility] HospitalOafwjjnARKSUARXVTHL6076-89-97 01:33:00 Test Item Value Reference Range Interpretation Comments Bili Total (test code = Bili Total) 0.3 0.2-1.3 [facility] HospitalEefymbsNBPOKTNCIEFF2467-20-03 01:33:00 Test Item Value Reference Range Interpretation Comments Alk Phos (test code = Alk Phos) 99 39-136 [facility] HospitalOjivvdoEKRNZBZPEYWQ3236-13-67 01:33:00 Test Item Value Reference Range Interpretation Comments Calcium Lvl (test code = Calcium Lvl) 8.6 8.5-10.5 [facility] HospitalDasqbdyDQNAHAMERMAX8764-67-42 01:33:00 Test Item Value Reference Range Interpretation Comments ALT (test code = ALT) 31 See_Comment [Auto mated message] The system which ge nerated this result transmit regi reference range : <=65. The reference range was not used to interpr et this result as nela l/abnormal. [facility] HospitalNcsohmeYIRSNVUCRUBX9154-47-33 01:33:00 Test Item Value Reference Range Interpretation Comments Albumin Lvl (test code = Albumin Lvl) 3.7 3.5-5.0 [facility] HospitalSumnjagXUBRCWPELRJT0360-73-73 01:33:00 Test Item Value Reference Range Interpretation Comments Total Protein (test code = Total 8.2 6.4-8.4 Protein) [facility] HospitalDgngmtvDNILRQGIATKB8679-10-97 01:33:00 Test Item Value Reference Range Interpretation Comments Glucose Lvl (test code = Glucose Lvl) 105 70-99 [facility] HospitalOqoepgeBQFQZTHTHMNL1467-65-31 01:33:00 Test Item Value Reference Range Interpretation Comments BUN (test code = BUN) 10 7-22 [facility] HospitalTldstomJCXTLOJZQFLM2269-33-25 01:33:00 Test Item Value Reference Range Interpretation Comments Sodium Lvl (test code = Sodium Lvl) 137 135-145 [facility] HospitalSradfkoIHJGTAHUEBAR7482-77-60 01:33:00 Test Item Value Reference Range Interpretation Comments Creatinine Lvl (test code = Creatinine 0.7 0.5-1.4 Lvl) [facility] HospitalIgybryxLLRHRNHCPRBZ8531-35-38 01:33:00 Test Item Value Reference Range Interpretation Comments Chloride Lvl (test code = Chloride Lvl) 106 95-109 [facility] HospitalWjcistjTOKDDSLEHMLS2614-73-56 01:33:00 Test Item Value Reference Range Interpretation Comments AGAP (test code = AGAP) 9.9 10.0-20.0 [facility] HospitalTlusduxONFDTTOVTKVD7401-92-04 01:33:00 Test Item Value Reference Range Interpretation Comments A/G Ratio (test code = A/G Ratio) 0.8 0.7-1.6 [facility] HospitalMnaxompZMCYYCFIDPNX5510-86-57 01:33:00 Test Item Value Reference Range Interpretation Comments Globulin (test code = Globulin) 4.5 2.0-4.0 [facility] HospitalXjmxnqnYURTVCQCQNHH9426-00-09 01:33:00 Test Item Value Reference Range Interpretation Comments B/C Ratio (test code = B/C Ratio) 14 6-25 [facility]stGxuehnlFQKKZANEJS1286-70-09 01:33:00 Test Item Value Reference Range Interpretation Comments Platelet (test code = Platelet) 306 133-450 [facility]stBndhsaqNDVVDHNXKG9502-62-79 01:33:00 Test Item Value Reference Range Interpretation Comments RDW (test code = RDW) 12.8 11.5-14.5 [facility]stToqwkwxDPNAHFDLVK9850-27-00 01:33:00 Test Item Value Reference Range Interpretation Comments MCH (test code = MCH) 29.4 pg 27.0-31.0 [facility]stKonjyoxLBKCVZUYCF1235-05-56 01:33:00 Test Item Value Reference Range Interpretation Comments MCHC (test code = MCHC) 32.0 32.0-36.0 [facility]stMmqojrxJUFOPKVUBE5737-72-61 01:33:00 Test Item Value Reference Range Interpretation Comments Hct (test code = Hct) 41.3 36.0-48.0 [facility]stLldolwgLNYLVGFHOC2997-94-10 01:33:00 Test Item Value Reference Range Interpretation Comments MCV (test code = MCV) 91.8 80.0-98.0 [facility]stGkumhudXFUCYNOTBN5309-58-86 01:33:00 Test Item Value Reference Range Interpretation Comments MPV (test code = MPV) 8.2 7.4-10.4 [facility]stJkmmvgcVQPBHBLELG3160-69-11 01:33:00 Test Item Value Reference Range Interpretation Comments WBC (test code = WBC) 12.1 3.7-10.4 [facility]stAzglzndWUKPZVWVPK0809-10-85 01:33:00 Test Item Value Reference Range Interpretation Comments RBC (test code = RBC) 4.50 4.20-5.40 [facility]stCqgebkcGEBMCYSLKQ5997-21-30 01:33:00 Test Item Value Reference Range Interpretation Comments Hgb (test code = Hgb) 13.2 12.0-16.0 [facility]stVyksjaiXEXCBJVBER9798-46-37 01:33:00 Test Item Value Reference Range Interpretation Comments Eosinophils # (test code 0.2 See_Comment [A utomated message] The = Eosinophils #) system whic h generated this result tra nsmitted reference range : <=0.5. The reference r kenneth was not used to int erpret this result as normal/abnormal . [facility]stEfqycdqNHIAJSDICX4948-24-45 01:33:00 Test Item Value Reference Range Interpretation Comments Basophils # (test code 0.1 See_Comment [Aut omated message] The = Basophils #) system which generated this result tra nsmitted reference range : <=0.2. The reference r kenneth was not used to int erpret this result as normal/abnormal . [facility]stKjjdkazBDMQLGPWPF3496-72-95 01:33:00 Test Item Value Reference Range Interpretation Comments Eosinophils (test code = 1.9 See_Comment [A utomated message] The Eosinophils) system which ge nerated this result tra nsmitted reference range : <=4.0. The reference r kenneth was not used to int erpret this result as normal/abnormal . [facility]stGknsciwCMIJPAHUKA4126-48-27 01:33:00 Test Item Value Reference Range Interpretation Comments Monocytes # (test code 0.7 See_Comment [Aut omated message] The = Monocytes #) system which generated this result tra nsmitted reference range : <=0.8. The reference r kenneth was not used to int erpret this result as normal/abnormal . [facility]stNovzmzcEJJTOWSYSP1902-32-58 01:33:00 Test Item Value Reference Range Interpretation Comments Basophils (test code = 0.5 See_Comment [Aut omated message] The Basophils) system which ge nerated this result tra nsmitted reference range : <=1.0. The reference r kenneth was not used to int erpret this result as normal/abnormal . [facility]stDuwdjwlIOFEPZASJU2868-14-83 01:33:00 Test Item Value Reference Range Interpretation Comments Segs-Bands # (test code = Segs-Bands #) 8.4 1.5-8.1 [facility]stJoravojDFBKMEZQBE7094-91-31 01:33:00 Test Item Value Reference Range Interpretation Comments Lymphocytes # (test code = Lymphocytes 2.7 1.0-5.5 #) [facility]stNyqgyooQCBNKFDUHX5795-55-05 01:33:00 Test Item Value Reference Range Interpretation Comments Segs (test code = Segs) 69.4 45.0-75.0 [facility]stFtbwwslIFMACIQACD4849-12-67 01:33:00 Test Item Value Reference Range Interpretation Comments Lymphocytes (test code = Lymphocytes) 22.2 20.0-40.0 [facility]stOtocpihTHYNVKIEHD6821-17-16 01:33:00 Test Item Value Reference Range Interpretation Comments Monocytes (test code = Monocytes) 6.0 2.0-12.0 [facility]2015-10-28 01:33:00 Test Item Value Reference Range Interpretation Comments UA Renal Epi (test code = UA Renal 0-2 /LPF Epi) [facility]2015-10-28 01:33:00 Test Item Value Reference Range Interpretation Comments UA Bacteria (test code = None Seen (04/18/15 UA Bacteria) 8:33 PM) [facility]2015-10-28 01:33:00 Test Item Value Reference Range Interpretation Comments UA RBC (test code = 0-2 /HPF See_Comment [Automa regi message] The UA RBC) system which ge nerated this result tra nsmitted reference range : <=2. The reference range was not used to interpr et this result as nela l/abnormal. [facility] AND [id number] 01:33:00 Test Item Value Reference Range Interpretation Comments UA WBC (test code = UA WBC) 6-10 /HPF [facility] AND [id number] 01:33:00 Test Item Value Reference Range Interpretation Comments UA Sq Epi (test code = UA Sq Epi) Rare /LPF [facility] AND [id number] 01:33:00 Test Item Value Reference Range Interpretation Comments UA Blood (test code = Small *ABN*(04/18/15 UA Blood) 8:33 PM) [facility] AND [id number] 01:33:00 Test Item Value Reference Range Interpretation Comments UA Ketones (test code Negative *NA*(04/18/15 = UA Ketones) 8:33 PM) [facility] AND [id number] 01:33:00 Test Item Value Reference Range Interpretation Comments UA Urobilinogen (test code = UA 0.2 0.1-1.0 Urobilinogen) [facility] AND [id number] 01:33:00 Test Item Value Reference Range Interpretation Comments UA Bili (test code = Negative *NA*(04/18/15 UA Bili) 8:33 PM) [facility] AND [id number] 01:33:00 Test Item Value Reference Range Interpretation Comments UA Nitrite (test code Negative (04/18/15 8:33 = UA Nitrite) PM) [facility] AND [id number] 01:33:00 Test Item Value Reference Range Interpretation Comments UA Leuk Est (test code Trace *ABN*(04/18/15 = UA Leuk Est) 8:33 PM) [facility] AND [id number] 01:33:00 Test Item Value Reference Range Interpretation Comments UA Glucose (test code Negative (04/18/15 8:33 = UA Glucose) PM) [facility] AND [id number] 01:33:00 Test Item Value Reference Range Interpretation Comments UA Protein (test code Negative (10/27/15 8:33 = [facility]A Protein) PM) [facility] [id number] 01:33:00 Test Item Value Reference Range Interpretation Comments UA Color (test code = Yellow *NA*(04/18/15 UA Color) 8:33 PM) [facility] [id number] 01:33:00 Test Item Value Reference Range Interpretation Comments UA Turbidity (test code = Clear (04/18/15 8:33 UA Turbidity) PM) [facility] [id number] 01:33:00 Test Item Value Reference Range Interpretation Comments UA pH (test code = UA pH) 6.5 1 5.0-8.0 [facility] [id number] 01:33:00 Test Item Value Reference Range Interpretation Comments UA Spec Grav (test code = UA Spec 1.015 1 Grav) [facility] [id number] 01:33:00 Test Item Value Reference Range Interpretation Comments U Preg (test code = U Negative (04/18/15 8:33 Preg) PM) [facility]CHE[facility] [id number] 01:33:00 Test Item Value Reference Range Interpretation Comments Lipase Lvl (test code = Lipase Lvl) 127 73-393 [facility]evilleHvoivqkARPMTWDYFQQX7081-52-52 01:33:00 Test Item Value Reference Range Interpretation Comments Potassium Lvl (test code = Potassium 3.9 3.5-5.1 Lvl) [facility]evilleBlijuumJCEWJHBMEWYR2545-41-80 01:33:00 Test Item Value Reference Range Interpretation Comments CO2 (test code = CO2) 25 24-32 [facility]evilleWzxhzqwSCWSCMLZPSFX4429-49-33 01:33:00 Test Item Value Reference Range Interpretation Comments eGFR (test code = eGFR) 119 [facility]evilleExuhbuoOCOFVTGNZRHN5990-92-36 01:33:00 Test Item Value Reference Range Interpretation Comments AST (test code = AST) 13 See_Comment [Auto mated message] The system which ge nerated this result transmit regi reference range : <=37. The reference range was not used to interpr et this result as nela l/abnormal. [facility] HospitalKahjocuLAEASWDFZWOG8043-57-00 01:33:00 Test Item Value Reference Range Interpretation Comments Bili Total (test code = Bili Total) 0.3 0.2-1.3 [facility] HospitalHfvpweuJLWSQWCXHRUB4330-59-92 01:33:00 Test Item Value Reference Range Interpretation Comments Alk Phos (test code = Alk Phos) 99 39-136 [facility] HospitalRnpawnjPMPBTVVJBJBC6840-94-39 01:33:00 Test Item Value Reference Range Interpretation Comments Calcium Lvl (test code = Calcium Lvl) 8.6 8.5-10.5 [facility] HospitalYltmbtgUUOZFDFCGWGI8275-76-82 01:33:00 Test Item Value Reference Range Interpretation Comments ALT (test code = ALT) 31 See_Comment [Auto mated message] The system which ge nerated this result transmit regi reference range : <=65. The reference range was not used to interpr et this result as nela l/abnormal. [facility] HospitalOdkyinqKEUYTOWMUQYS1096-30-27 01:33:00 Test Item Value Reference Range Interpretation Comments Albumin Lvl (test code = Albumin Lvl) 3.7 3.5-5.0 [facility] HospitalNkhxfreJPKUYHGROOGS3107-32-13 01:33:00 Test Item Value Reference Range Interpretation Comments Total Protein (test code = Total 8.2 6.4-8.4 Protein) [facility] HospitalTvefkwgIBYOACCEYZNZ6925-94-72 01:33:00 Test Item Value Reference Range Interpretation Comments Glucose Lvl (test code = Glucose Lvl) 105 70-99 [facility] HospitalTddnmkcKORWPWPMMFKO5705-26-98 01:33:00 Test Item Value Reference Range Interpretation Comments BUN (test code = BUN) 10 7-22 [facility] HospitalLfmxgrtMAWDLXKNLLHZ2232-18-00 01:33:00 Test Item Value Reference Range Interpretation Comments Sodium Lvl (test code = Sodium Lvl) 137 135-145 [facility] HospitalHvcqxnwAIKYTBUUWJKF7981-62-67 01:33:00 Test Item Value Reference Range Interpretation Comments Creatinine Lvl (test code = Creatinine 0.7 0.5-1.4 Lvl) [facility] HospitalRmohvjiXVBNGWMRQKWX4484-01-67 01:33:00 Test Item Value Reference Range Interpretation Comments Chloride Lvl (test code = Chloride Lvl) 106 95-109 [facility] HospitalWxftcwfNRBHYZSTITAD7287-57-45 01:33:00 Test Item Value Reference Range Interpretation Comments AGAP (test code = AGAP) 9.9 10.0-20.0 [facility] HospitalCfmmhfrIRCJDPTSYNZU7122-10-40 01:33:00 Test Item Value Reference Range Interpretation Comments A/G Ratio (test code = A/G Ratio) 0.8 0.7-1.6 [facility] HospitalJfijeyaDXPNZZTQSYTX4718-15-40 01:33:00 Test Item Value Reference Range Interpretation Comments Globulin (test code = Globulin) 4.5 2.0-4.0 [facility] HospitalBytsqcaJHCKPSMPJRXJ4561-15-84 01:33:00 Test Item Value Reference Range Interpretation Comments B/C Ratio (test code = B/C Ratio) 14 6-25 [facility]stRqsezmmYBLLNZGYNL0245-13-59 01:33:00 Test Item Value Reference Range Interpretation Comments Platelet (test code = Platelet) 306 133-450 [facility]stTsiabkxJPYTPLJSAI1383-78-84 01:33:00 Test Item Value Reference Range Interpretation Comments RDW (test code = RDW) 12.8 11.5-14.5 [facility]stTxrbmqgRKBLXIUUCY2996-54-19 01:33:00 Test Item Value Reference Range Interpretation Comments MCH (test code = MCH) 29.4 pg 27.0-31.0 [facility]stUekayapCFLGILKRLU8669-06-62 01:33:00 Test Item Value Reference Range Interpretation Comments MCHC (test code = MCHC) 32.0 32.0-36.0 [facility]stVnujcfeXTEAKUMFUM9801-04-09 01:33:00 Test Item Value Reference Range Interpretation Comments Hct (test code = Hct) 41.3 36.0-48.0 [facility]stMobdvsfMJXIFWZYAM1184-38-89 01:33:00 Test Item Value Reference Range Interpretation Comments MCV (test code = MCV) 91.8 80.0-98.0 [facility]stRgllvalQSTWLPABSZ3147-39-00 01:33:00 Test Item Value Reference Range Interpretation Comments MPV (test code = MPV) 8.2 7.4-10.4 [facility]stPjehdhhYSIDISSCHY1745-25-32 01:33:00 Test Item Value Reference Range Interpretation Comments WBC (test code = WBC) 12.1 3.7-10.4 [facility]stJpicvkeUBXFRJNDBB8510-73-01 01:33:00 Test Item Value Reference Range Interpretation Comments RBC (test code = RBC) 4.50 4.20-5.40 [facility]stWvyomtcWXZABMXJMT0516-68-48 01:33:00 Test Item Value Reference Range Interpretation Comments Hgb (test code = Hgb) 13.2 12.0-16.0 [facility]stZghkfxvAEIKBZSOFQ7144-53-79 01:33:00 Test Item Value Reference Range Interpretation Comments Eosinophils # (test code 0.2 See_Comment [A utomated message] The = Eosinophils #) system whic h generated this result tra nsmitted reference range : <=0.5. The reference r kenneth was not used to int erpret this result as normal/abnormal . [facility]stNapdpjfCFJXPSDKMQ2721-68-99 01:33:00 Test Item Value Reference Range Interpretation Comments Basophils # (test code 0.1 See_Comment [Aut omated message] The = Basophils #) system which generated this result tra nsmitted reference range : <=0.2. The reference r kenneth was not used to int erpret this result as normal/abnormal . [facility]stMuioggqUZULCJMUNJ9678-25-65 01:33:00 Test Item Value Reference Range Interpretation Comments Eosinophils (test code = 1.9 See_Comment [A utomated message] The Eosinophils) system which ge nerated this result tra nsmitted reference range : <=4.0. The reference r kenneth was not used to int erpret this result as normal/abnormal . [facility]stXqubbrsINUBHPRUMU8912-67-77 01:33:00 Test Item Value Reference Range Interpretation Comments Monocytes # (test code 0.7 See_Comment [Aut omated message] The = Monocytes #) system which generated this result tra nsmitted reference range : <=0.8. The reference r kenneth was not used to int erpret this result as normal/abnormal . [facility]stIakcrpjFDAHWVNSNQ0250-96-41 01:33:00 Test Item Value Reference Range Interpretation Comments Basophils (test code = 0.5 See_Comment [Aut omated message] The Basophils) system which ge nerated this result tra nsmitted reference range : <=1.0. The reference r kenneth was not used to int erpret this result as normal/abnormal . [facility]stOkgizyxBGEEEKMWDZ8040-46-26 01:33:00 Test Item Value Reference Range Interpretation Comments Segs-Bands # (test code = Segs-Bands #) 8.4 1.5-8.1 [facility]stXciibzgSTIBDSQZSN1019-59-85 01:33:00 Test Item Value Reference Range Interpretation Comments Lymphocytes # (test code = Lymphocytes 2.7 1.0-5.5 #) [facility]stWfzwrkdZXOKZPIYDK1694-56-31 01:33:00 Test Item Value Reference Range Interpretation Comments Segs (test code = Segs) 69.4 45.0-75.0 [facility]stJrpdkwbDKYZSNMIQS8719-90-16 01:33:00 Test Item Value Reference Range Interpretation Comments Lymphocytes (test code = Lymphocytes) 22.2 20.0-40.0 [facility]stSuotcqvOHFXRJSPLL4429-60-24 01:33:00 Test Item Value Reference Range Interpretation Comments Monocytes (test code = Monocytes) 6.0 2.0-12.0 [facility] AND [id number] 01:33:00 Test Item Value Reference Range Interpretation Comments UA Renal Epi (test code = UA Renal 0-2 /LPF Epi) [facility] AND [id number] 01:33:00 Test Item Value Reference Range Interpretation Comments UA Bacteria (test code = None Seen (04/18/15 UA Bacteria) 8:33 PM) [facility] AND [id number] 01:33:00 Test Item Value Reference Range Interpretation Comments UA RBC (test code = 0-2 /HPF See_Comment [Automa regi message] The UA RBC) system which ge nerated this result tra nsmitted reference range : <=2. The reference range was not used to interpr et this result as nela l/abnormal. [facility] AND [id number] 01:33:00 Test Item Value Reference Range Interpretation Comments UA WBC (test code = UA WBC) 6-10 /HPF [facility] AND [id number] 01:33:00 Test Item Value Reference Range Interpretation Comments UA Sq Epi (test code = UA Sq Epi) Rare /LPF [facility] AND [id number] 01:33:00 Test Item Value Reference Range Interpretation Comments UA Blood (test code = Small *ABN*(04/18/15 UA Blood) 8:33 PM) [facility] AND [id number] 01:33:00 Test Item Value Reference Range Interpretation Comments UA Ketones (test code Negative *NA*(04/18/15 = UA Ketones) 8:33 PM) [facility] AND [id number] 01:33:00 Test Item Value Reference Range Interpretation Comments UA Urobilinogen (test code = UA 0.2 0.1-1.0 [facility]robilinogen) [facility] [id number] 01:33:00 Test Item Value Reference Range Interpretation Comments UA Bili (test code = Negative *NA*(04/18/15 UA Bili) 8:33 PM) [facility] [id number] 01:33:00 Test Item Value Reference Range Interpretation Comments UA Nitrite (test code Negative (04/18/15 8:33 = UA Nitrite) PM) [facility] [id number] 01:33:00 Test Item Value Reference Range Interpretation Comments UA Leuk Est (test code Trace *ABN*(04/18/15 = UA Leuk Est) 8:33 PM) [facility] [id number] 01:33:00 Test Item Value Reference Range Interpretation Comments UA Glucose (test code Negative (04/18/15 8:33 = UA Glucose) PM) [facility] [id number] 01:33:00 Test Item Value Reference Range Interpretation Comments UA Protein (test code Negative (04/18/15 8:33 = UA Protein) PM) [facility] [id number] 01:33:00 Test Item Value Reference Range Interpretation Comments UA Color (test code = Yellow *NA*(04/18/15 UA Color) 8:33 PM) [facility] [id number] 01:33:00 Test Item Value Reference Range Interpretation Comments UA Turbidity (test code = Clear (04/18/15 8:33 UA Turbidity) PM) [facility] [id number] 01:33:00 Test Item Value Reference Range Interpretation Comments UA pH (test code = UA pH) 6.5 1 5.0-8.0 [facility] [id number] 01:33:00 Test Item Value Reference Range Interpretation Comments UA Spec Grav (test code = UA Spec 1.015 1 Grav) [facility] [id number] 01:33:00 Test Item Value Reference Range Interpretation Comments U Preg (test code = U Negative (04/18/15 8:33 Preg) PM) [facility] [id number] 01:33:00 Test Item Value Reference Range Interpretation Comments Lipase Lvl (test code = Lipase Lvl) 127 73-393 [facility] HospitalCbowbbvEOWMDATMBIDX3644-38-48 01:33:00 Test Item Value Reference Range Interpretation Comments Potassium Lvl (test code = Potassium 3.9 3.5-5.1 Lvl) [facility] HospitalKbkgitxUKJYPLWSZAUG2821-32-80 01:33:00 Test Item Value Reference Range Interpretation Comments CO2 (test code = CO2) 25 24-32 [facility] HospitalFeyplmfBEXWHFLRMGMX0201-15-21 01:33:00 Test Item Value Reference Range Interpretation Comments eGFR (test code = eGFR) 119 [facility] HospitalUcudkduFBATVAIOVUZB4476-02-04 01:33:00 Test Item Value Reference Range Interpretation Comments AST (test code = AST) 13 See_Comment [Auto mated message] The system which ge nerated this result transmit regi reference range : <=37. The reference range was not used to interpr et this result as nela l/abnormal. [facility] HospitalEfdzydpSEIWYUFBMMXZ8397-01-69 01:33:00 Test Item Value Reference Range Interpretation Comments Bili Total (test code = Bili Total) 0.3 0.2-1.3 [facility]HucbxbdUJHKTDYOHZWT5746-08-10 01:33:00 Test Item Value Reference Range Interpretation Comments Alk Phos (test code = Alk Phos) 99 39-136 [facility] HospitalJcyveqxQPEFHWYGIAPB9932-59-25 01:33:00 Test Item Value Reference Range Interpretation Comments Calcium Lvl (test code = Calcium Lvl) 8.6 8.5-10.5 [facility] HospitalTarjnulERXVLUXIIPZM2424-09-19 01:33:00 Test Item Value Reference Range Interpretation Comments ALT (test code = ALT) 31 See_Comment [Auto mated message] The system which ge nerated this result transmit regi reference range : <=65. The reference range was not used to interpr et this result as nela l/abnormal. [facility] HospitalQwdegrdTPZRVUSHGQYH1042-38-62 01:33:00 Test Item Value Reference Range Interpretation Comments Albumin Lvl (test code = Albumin Lvl) 3.7 3.5-5.0 [facility] HospitalErxpmnoCMMIIPAPNDVM3396-64-22 01:33:00 Test Item Value Reference Range Interpretation Comments Total Protein (test code = Total 8.2 6.4-8.4 Protein) [facility] HospitalRvpatpiMXZJZQPPBELW0597-51-05 01:33:00 Test Item Value Reference Range Interpretation Comments Glucose Lvl (test code = Glucose Lvl) 105 70-99 [facility] HospitalZxmuxxiFCFDJBORHAEL3085-76-46 01:33:00 Test Item Value Reference Range Interpretation Comments BUN (test code = BUN) 10 7-22 [facility] HospitalRxuqhpkENOQTYRYIGLK4468-72-22 01:33:00 Test Item Value Reference Range Interpretation Comments Sodium Lvl (test code = Sodium Lvl) 137 135-145 [facility] HospitalNwsjujdYORATKZMCKHR3155-18-27 01:33:00 Test Item Value Reference Range Interpretation Comments Creatinine Lvl (test code = Creatinine 0.7 0.5-1.4 Lvl) [facility] HospitalWixghwkVGAQKBKAQDZB9935-85-23 01:33:00 Test Item Value Reference Range Interpretation Comments Chloride Lvl (test code = Chloride Lvl) 106 95-109 [facility] HospitalWzkfiqyVOESFOVZILVO2955-82-63 01:33:00 Test Item Value Reference Range Interpretation Comments AGAP (test code = AGAP) 9.9 10.0-20.0 [facility] HospitalSerqhhqMATDDZFZXYDG6739-32-73 01:33:00 Test Item Value Reference Range Interpretation Comments A/G Ratio (test code = A/G Ratio) 0.8 0.7-1.6 [facility] HospitalNrpfapsGIRKJMRPRHGB9343-21-88 01:33:00 Test Item Value Reference Range Interpretation Comments Globulin (test code = Globulin) 4.5 2.0-4.0 [facility] HospitalCvhifikZJJUOWJELEEF7019-91-80 01:33:00 Test Item Value Reference Range Interpretation Comments B/C Ratio (test code = B/C Ratio) 14 6-25 [facility]VnhyftnMMQDTKGWKP8507-68-10 01:33:00 Test Item Value Reference Range Interpretation Comments Platelet (test code = Platelet) 306 133-450 [facility]stOsghzldJDQJNHJJAG4122-02-94 01:33:00 Test Item Value Reference Range Interpretation Comments RDW (test code = RDW) 12.8 11.5-14.5 [facility]stPmqsuezRTUXYIEAFV1697-47-00 01:33:00 Test Item Value Reference Range Interpretation Comments MCH (test code = MCH) 29.4 pg 27.0-31.0 [facility]stDdcjkvwWBEWYMYRTQ6198-10-58 01:33:00 Test Item Value Reference Range Interpretation Comments MCHC (test code = MCHC) 32.0 32.0-36.0 [facility]stQnvbdqcDBOCPDLPYJ9321-66-08 01:33:00 Test Item Value Reference Range Interpretation Comments Hct (test code = Hct) 41.3 36.0-48.0 [facility]stAtqdqnwWRZKZTSZDS9502-11-16 01:33:00 Test Item Value Reference Range Interpretation Comments MCV (test code = MCV) 91.8 80.0-98.0 [facility]stXlnronkSBXBBUKBPE9810-66-19 01:33:00 Test Item Value Reference Range Interpretation Comments MPV (test code = MPV) 8.2 7.4-10.4 [facility]stQtnjwfwXPWVWICRDU5262-90-50 01:33:00 Test Item Value Reference Range Interpretation Comments WBC (test code = WBC) 12.1 3.7-10.4 [facility]stOqrlwjbMNYYTADRBW6706-32-78 01:33:00 Test Item Value Reference Range Interpretation Comments RBC (test code = RBC) 4.50 4.20-5.40 [facility]stUdlbsqcDMFMHODRNG8536-77-99 01:33:00 Test Item Value Reference Range Interpretation Comments Hgb (test code = Hgb) 13.2 12.0-16.0 [facility]stFwlpwgzELEVZJTJTM6538-71-81 01:33:00 Test Item Value Reference Range Interpretation Comments Eosinophils # (test code 0.2 See_Comment [A utomated message] The = Eosinophils #) system whic h generated this result tra nsmitted reference range : <=0.5. The reference r kenneth was not used to int erpret this result as normal/abnormal . [facility]stOqzbeewZQNTFLDRIR7931-18-40 01:33:00 Test Item Value Reference Range Interpretation Comments Basophils # (test code 0.1 See_Comment [Aut omated message] The = Basophils #) system which generated this result tra nsmitted reference range : <=0.2. The reference r kenneth was not used to int erpret this result as normal/abnormal . [facility]stPzfxypaJQCLZAESMI1240-16-39 01:33:00 Test Item Value Reference Range Interpretation Comments Eosinophils (test code = 1.9 See_Comment [A utomated message] The Eosinophils) system which ge nerated this result tra nsmitted reference range : <=4.0. The reference r kenneth was not used to int erpret this result as normal/abnormal . [facility]stHfkgxypHHFLEIJGSU2444-03-91 01:33:00 Test Item Value Reference Range Interpretation Comments Monocytes # (test code 0.7 See_Comment [Aut omated message] The = Monocytes #) system which generated this result tra nsmitted reference range : <=0.8. The reference r kenneth was not used to int erpret this result as normal/abnormal . [facility]stGihcuzzNJANTFJWOH0342-65-79 01:33:00 Test Item Value Reference Range Interpretation Comments Basophils (test code = 0.5 See_Comment [Aut omated message] The Basophils) system which ge nerated this result tra nsmitted reference range : <=1.0. The reference r kenneth was not used to int erpret this result as normal/abnormal . [facility]stEpdurgfIDDKBWXAOT3151-06-23 01:33:00 Test Item Value Reference Range Interpretation Comments Segs-Bands # (test code = Segs-Bands #) 8.4 1.5-8.1 [facility]stMeiwbsqKBVTKISNBT4800-25-33 01:33:00 Test Item Value Reference Range Interpretation Comments Lymphocytes # (test code = Lymphocytes 2.7 1.0-5.5 #) [facility]stJtyjqniLETWZZISLH5128-25-65 01:33:00 Test Item Value Reference Range Interpretation Comments Segs (test code = Segs) 69.4 45.0-75.0 [facility]stCuqleliQYTYEOFCRV1528-04-14 01:33:00 Test Item Value Reference Range Interpretation Comments Lymphocytes (test code = Lymphocytes) 22.2 20.0-40.0 [facility]stNtvqhazTHMNNMTNAS9394-97-36 01:33:00 Test Item Value Reference Range Interpretation Comments Monocytes (test code = Monocytes) 6.0 2.0-12.0 [facility]2015-10-28 01:33:00 Test Item Value Reference Range Interpretation Comments UA Renal Epi (test code = UA Renal 0-2 /LPF Epi) [facility]2015-10-28 01:33:00 Test Item Value Reference Range Interpretation Comments UA Bacteria (test code = None Seen (04/18/15 UA Bacteria) 8:33 PM) [facility]2015-10-28 01:33:00 Test Item Value Reference Range Interpretation Comments UA RBC (test code = 0-2 /HPF See_Comment [Automa regi message] The UA RBC) system which ge nerated this result tra nsmitted reference range : <=2. The reference range was not used to interpr et this result as nela l/abnormal. [facility] AND [id number] 01:33:00 Test Item Value Reference Range Interpretation Comments UA WBC (test code = UA WBC) 6-10 /HPF [facility] AND [id number] 01:33:00 Test Item Value Reference Range Interpretation Comments UA Sq Epi (test code = UA Sq Epi) Rare /LPF [facility] AND [id number] 01:33:00 Test Item Value Reference Range Interpretation Comments UA Blood (test code = Small *ABN*(04/18/15 UA Blood) 8:33 PM) [facility] AND [id number] 01:33:00 Test Item Value Reference Range Interpretation Comments UA Ketones (test code Negative *NA*(04/18/15 = UA Ketones) 8:33 PM) [facility] AND [id number] 01:33:00 Test Item Value Reference Range Interpretation Comments UA Urobilinogen (test code = UA 0.2 0.1-1.0 Urobilinogen) [facility] AND EEMYJ6735-01-05 01:33:00 Test Item Value Reference Range Interpretation Comments UA Bili (test code = Negative *NA*(04/18/15 UA Bili) 8:33 PM) [facility] AND [id number] 01:33:00 Test Item Value Reference Range Interpretation Comments UA Nitrite (test code Negative (04/18/15 8:33 = UA Nitrite) PM) [facility] AND [id number] 01:33:00 Test Item Value Reference Range Interpretation Comments UA Leuk Est (test code Trace *ABN*(04/18/15 = UA Leuk Est) 8:33 PM) [facility] AND [id number] 01:33:00 Test Item Value Reference Range Interpretation Comments UA Glucose (test code Negative (04/18/15 8:33 = UA Glucose) PM) [facility] AND [id number] 01:33:00 Test Item Value Reference Range Interpretation Comments UA Protein (test code Negative (04/18/15 8:33 = UA Protein) PM) [facility] [id number] 01:33:00 Test Item Value Reference Range Interpretation Comments UA Color (test code = Yellow *NA*(04/18/15 UA Color) 8:33 PM) [facility] [id number] 01:33:00 Test Item Value Reference Range Interpretation Comments UA Turbidity (test code = Clear (04/18/15 8:33 UA Turbidity) PM) [facility] AND [id number] 01:33:00 Test Item Value Reference Range Interpretation Comments UA pH (test code = UA pH) 6.5 1 5.0-8.0 [facility] [id number] 01:33:00 Test Item Value Reference Range Interpretation Comments UA Spec Grav (test code = UA Spec 1.015 1 Grav) [facility] [id number] 01:33:00 Test Item Value Reference Range Interpretation Comments U Preg (test code = U Negative (04/18/15 8:33 Preg) PM) [facility]CHEM NEZKY0917-08-46 01:33:00 Test Item Value Reference Range Interpretation Comments Lipase Lvl (test code = Lipase Lvl) 127 73-393 [facility]OgdzxosTONTYVYLDIMR3060-38-49 01:33:00 Test Item Value Reference Range Interpretation Comments Potassium Lvl (test code = Potassium 3.9 3.5-5.1 Lvl) [facility] HospitalMqxhytkSHQBCJCISOTQ4026-14-04 01:33:00 Test Item Value Reference Range Interpretation Comments CO2 (test code = CO2) 25 24-32 [facility] SystemZgzkztrKBQLVCYSZZHD2779-84-37 01:33:00 Test Item Value Reference Range Interpretation Comments eGFR (test code = eGFR) 119 [facility] HospitalVkxyzkwAPPRMDFTGASU8772-37-95 01:33:00 Test Item Value Reference Range Interpretation Comments AST (test code = AST) 13 See_Comment [Auto mated message] The system which ge nerated this result transmit regi reference range : <=37. The reference range was not used to interpr et this result as nela l/abnormal. [facility] HospitalMaunbdzCQYQOCVILDHF2927-57-52 01:33:00 Test Item Value Reference Range Interpretation Comments Bili Total (test code = Bili Total) 0.3 0.2-1.3 [facility] HospitalTeyuwsxEJRKXTMANWDI3827-13-23 01:33:00 Test Item Value Reference Range Interpretation Comments Alk Phos (test code = Alk Phos) 99 39-136 [facility] HospitalImksthuHFBNEDFUDFDU2913-47-52 01:33:00 Test Item Value Reference Range Interpretation Comments Calcium Lvl (test code = Calcium Lvl) 8.6 8.5-10.5 [facility] HospitalAbmbaciMMLOCTMJKBCH9778-24-49 01:33:00 Test Item Value Reference Range Interpretation Comments ALT (test code = ALT) 31 See_Comment [Auto mated message] The system which ge nerated this result transmit regi reference range : <=65. The reference range was not used to interpr et this result as nela l/abnormal. [facility] HospitalYrurefiHGIEXKKVJZKA6500-81-47 01:33:00 Test Item Value Reference Range Interpretation Comments Albumin Lvl (test code = Albumin Lvl) 3.7 3.5-5.0 [facility] HospitalIsxebzdHEOFCWAVSTTK5163-42-73 01:33:00 Test Item Value Reference Range Interpretation Comments Total Protein (test code = Total 8.2 6.4-8.4 Protein) [facility] HospitalWfzwxddHFLZOORDRRIS0798-31-28 01:33:00 Test Item Value Reference Range Interpretation Comments Glucose Lvl (test code = Glucose Lvl) 105 70-99 [facility] HospitalVsultowJXHWYJZFAPGH9247-69-39 01:33:00 Test Item Value Reference Range Interpretation Comments BUN (test code = BUN) 10 7-22 [facility] HospitalYhxfxpiAGGOMYLLKOGG6198-24-89 01:33:00 Test Item Value Reference Range Interpretation Comments Sodium Lvl (test code = Sodium Lvl) 137 135-145 [facility] HospitalAijmrvjPGLTCMXVOSEQ6050-85-01 01:33:00 Test Item Value Reference Range Interpretation Comments Creatinine Lvl (test code = Creatinine 0.7 0.5-1.4 Lvl) [facility] HospitalUfusbhuTBQTCCSDAQLS3741-54-71 01:33:00 Test Item Value Reference Range Interpretation Comments Chloride Lvl (test code = Chloride Lvl) 106 95-109 [facility] HospitalHsujxsnHVUSMAGHMROX3452-78-97 01:33:00 Test Item Value Reference Range Interpretation Comments AGAP (test code = AGAP) 9.9 10.0-20.0 [facility] HospitalPxjdrtnXGHCSFTDGFFM3766-99-55 01:33:00 Test Item Value Reference Range Interpretation Comments A/G Ratio (test code = A/G Ratio) 0.8 0.7-1.6 [facility] HospitalYtbmuzfUKGRWYDISALE8648-41-95 01:33:00 Test Item Value Reference Range Interpretation Comments Globulin (test code = Globulin) 4.5 2.0-4.0 [facility] HospitalGofwgnaPNKEAECSKBKR3437-45-39 01:33:00 Test Item Value Reference Range Interpretation Comments B/C Ratio (test code = B/C Ratio) 14 6-25 [facility]stTmxmwyqPQSUCFETYU5310-52-57 01:33:00 Test Item Value Reference Range Interpretation Comments Platelet (test code = Platelet) 306 133-450 [facility]stEmtndguDHKKZGHLLO8384-25-91 01:33:00 Test Item Value Reference Range Interpretation Comments RDW (test code = RDW) 12.8 11.5-14.5 [facility]stOtusfmfJTWFKFYUSX5438-83-60 01:33:00 Test Item Value Reference Range Interpretation Comments MCH (test code = MCH) 29.4 pg 27.0-31.0 [facility]stTinrcwlHDCMJXPFSC2028-98-89 01:33:00 Test Item Value Reference Range Interpretation Comments MCHC (test code = MCHC) 32.0 32.0-36.0 [facility]stWgsnvcsOZGBHXWEME5945-04-18 01:33:00 Test Item Value Reference Range Interpretation Comments Hct (test code = Hct) 41.3 36.0-48.0 [facility]stYaatfuaDZBZFMYMBZ6143-83-47 01:33:00 Test Item Value Reference Range Interpretation Comments MCV (test code = MCV) 91.8 80.0-98.0 [facility]stOwigcdiMEDBOTPGAP5394-77-33 01:33:00 Test Item Value Reference Range Interpretation Comments MPV (test code = MPV) 8.2 7.4-10.4 [facility]stJfkcfjaYADQXFUUBR3669-93-25 01:33:00 Test Item Value Reference Range Interpretation Comments WBC (test code = WBC) 12.1 3.7-10.4 [facility]stDmerontJCPQZBAJVD3171-99-64 01:33:00 Test Item Value Reference Range Interpretation Comments RBC (test code = RBC) 4.50 4.20-5.40 [place] 429475-10-28 01:33:00 Test Item Value Reference Range Interpretation Comments Hgb (test code = Hgb) 13.2 12.0-16.0 [facility]stOofuzndDJRQWTRMTT1073-95-56 01:33:00 Test Item Value Reference Range Interpretation Comments Eosinophils # (test code 0.2 See_Comment [A utomated message] The = Eosinophils #) system whic h generated this result tra nsmitted reference range : <=0.5. The reference r kenneth was not used to int erpret this result as normal/abnormal . [facility]stLsybafjZEHEIUQUTR6862-44-42 01:33:00 Test Item Value Reference Range Interpretation Comments Basophils # (test code 0.1 See_Comment [Aut omated message] The = Basophils #) system which generated this result tra nsmitted reference range : <=0.2. The reference r kenneth was not used to int erpret this result as normal/abnormal . [facility]stDstfeyiSCWZPYKNJE9744-89-72 01:33:00 Test Item Value Reference Range Interpretation Comments Eosinophils (test code = 1.9 See_Comment [A utomated message] The Eosinophils) system which ge nerated this result tra nsmitted reference range : <=4.0. The reference r kenneth was not used to int erpret this result as normal/abnormal . [facility]stOgtlmqoJXJCWQTWSN8908-99-85 01:33:00 Test Item Value Reference Range Interpretation Comments Monocytes # (test code 0.7 See_Comment [Aut omated message] The = Monocytes #) system which generated this result tra nsmitted reference range : <=0.8. The reference r kenneth was not used to int erpret this result as normal/abnormal . [facility]stLexmilwBBXQPSLIHB7516-81-79 01:33:00 Test Item Value Reference Range Interpretation Comments Basophils (test code = 0.5 See_Comment [Aut omated message] The Basophils) system which ge nerated this result tra nsmitted reference range : <=1.0. The reference r kenneth was not used to int erpret this result as normal/abnormal . [facility]stJhyztqvUCYRVPRIIA9135-58-90 01:33:00 Test Item Value Reference Range Interpretation Comments Segs-Bands # (test code = Segs-Bands #) 8.4 1.5-8.1 [facility]stWxpzujbMZQLUINZMQ0978-71-37 01:33:00 Test Item Value Reference Range Interpretation Comments Lymphocytes # (test code = Lymphocytes 2.7 1.0-5.5 #) [facility]stIedpkrwNVXIUWIOVE1086-90-22 01:33:00 Test Item Value Reference Range Interpretation Comments Segs (test code = Segs) 69.4 45.0-75.0 [facility]stFcfrmgxAZXIESRREP5755-09-35 01:33:00 Test Item Value Reference Range Interpretation Comments Lymphocytes (test code = Lymphocytes) 22.2 20.0-40.0 [facility]stNmjunqlTNFDCDZIUT5595-76-03 01:33:00 Test Item Value Reference Range Interpretation Comments Monocytes (test code = Monocytes) 6.0 2.0-12.0 [facility] AND [id number] 01:33:00 Test Item Value Reference Range Interpretation Comments UA Renal Epi (test code = UA Renal 0-2 /LPF Epi) [facility] AND [id number] 01:33:00 Test Item Value Reference Range Interpretation Comments UA Bacteria (test code = None Seen (04/18/15 UA Bacteria) 8:33 PM) [facility] AND [id number] 01:33:00 Test Item Value Reference Range Interpretation Comments UA RBC (test code = 0-2 /HPF See_Comment [Automa regi message] The UA RBC) system which ge nerated this result tra nsmitted reference range : <=2. The reference range was not used to interpr et this result as nela l/abnormal. [facility] AND [id number] 01:33:00 Test Item Value Reference Range Interpretation Comments UA WBC (test code = UA WBC) 6-10 /HPF [facility] AND [id number] 01:33:00 Test Item Value Reference Range Interpretation Comments UA Sq Epi (test code = UA Sq Epi) Rare /LPF [facility] AND [id number] 01:33:00 Test Item Value Reference Range Interpretation Comments UA Blood (test code = Small *ABN*(04/18/15 UA Blood) 8:33 PM) [facility] AND [id number] 01:33:00 Test Item Value Reference Range Interpretation Comments UA Ketones (test code Negative *NA*(04/18/15 = UA Ketones) 8:33 PM) [facility] [id number] 01:33:00 Test Item Value Reference Range Interpretation Comments UA Urobilinogen (test code = UA 0.2 0.1-1.0 Urobilinogen) [facility] [id number] 01:33:00 Test Item Value Reference Range Interpretation Comments UA Bili (test code = Negative *NA*(04/18/15 UA Bili) 8:33 PM) [facility] [id number] 01:33:00 Test Item Value Reference Range Interpretation Comments UA Nitrite (test code Negative (04/18/15 8:33 = UA Nitrite) PM) [facility] [id number] 01:33:00 Test Item Value Reference Range Interpretation Comments UA Leuk Est (test code Trace *ABN*(04/18/15 = UA Leuk Est) 8:33 PM) [facility] [id number] 01:33:00 Test Item Value Reference Range Interpretation Comments UA Glucose (test code Negative (04/18/15 8:33 = UA Glucose) PM) [facility] [id number] 01:33:00 Test Item Value Reference Range Interpretation Comments UA Protein (test code Negative (04/18/15 8:33 = UA Protein) PM) [facility] [id number] 01:33:00 Test Item Value Reference Range Interpretation Comments UA Color (test code = Yellow *NA*(04/18/15 UA Color) 8:33 PM) [facility] [id number] 01:33:00 Test Item Value Reference Range Interpretation Comments UA Turbidity (test code = Clear (04/18/15 8:33 UA Turbidity) PM) [facility] [id number] 01:33:00 Test Item Value Reference Range Interpretation Comments UA pH (test code = UA pH) 6.5 1 5.0-8.0 [facility] [id number] 01:33:00 Test Item Value Reference Range Interpretation Comments UA Spec Grav (test code = UA Spec 1.015 1 Grav) [facility] [id number] 01:33:00 Test Item Value Reference Range Interpretation Comments U Preg (test code = U Negative (04/18/15 8:33 Preg) PM) [facility]CHE[facility] [id number] 01:33:00 Test Item Value Reference Range Interpretation Comments Lipase Lvl (test code = Lipase Lvl) 127 73-393 [facility] HospitalZnhzrroTLLTUJRMBUAW2048-54-66 01:33:00 Test Item Value Reference Range Interpretation Comments Potassium Lvl (test code = Potassium 3.9 3.5-5.1 Lvl) [facility] HospitalFbxueguFJZOITVPSIBS4877-06-66 01:33:00 Test Item Value Reference Range Interpretation Comments CO2 (test code = CO2) 25 24-32 [facility] HospitalTpedrvkYOUPILYTFXXY5513-80-16 01:33:00 Test Item Value Reference Range Interpretation Comments eGFR (test code = eGFR) 119 [facility] HospitalKnbiezkNROVSFYHHYUG8545-41-40 01:33:00 Test Item Value Reference Range Interpretation Comments AST (test code = AST) 13 See_Comment [Auto mated message] The system which ge nerated this result transmit regi reference range : <=37. The reference range was not used to interpr et this result as nela l/abnormal. [facility] HospitalWutqjkeEOQORTAEXNXH5558-85-06 01:33:00 Test Item Value Reference Range Interpretation Comments Bili Total (test code = Bili Total) 0.3 0.2-1.3 [facility] HospitalUzffmidZVSLYUQFCLMW2773-57-06 01:33:00 Test Item Value Reference Range Interpretation Comments Alk Phos (test code = Alk Phos) 99 39-136 [facility] HospitalHjlqpafVZXOOSKERALH4378-84-97 01:33:00 Test Item Value Reference Range Interpretation Comments Calcium Lvl (test code = Calcium Lvl) 8.6 8.5-10.5 [facility] HospitalRvnegojFJUGSYSABAYW8224-05-72 01:33:00 Test Item Value Reference Range Interpretation Comments ALT (test code = ALT) 31 See_Comment [Auto mated message] The system which ge nerated this result transmit regi reference range : <=65. The reference range was not used to interpr et this result as nela l/abnormal. [facility]ApafnniYEZEPNSFAVPP9076-96-02 01:33:00 Test Item Value Reference Range Interpretation Comments Albumin Lvl (test code = Albumin Lvl) 3.7 3.5-5.0 [facility] HospitalMdfacsgLEIDTEOWFGKE4416-02-27 01:33:00 Test Item Value Reference Range Interpretation Comments Total Protein (test code = Total 8.2 6.4-8.4 Protein) [facility] HospitalDmuamqgIUNMJCANIJHR3410-79-51 01:33:00 Test Item Value Reference Range Interpretation Comments Glucose Lvl (test code = Glucose Lvl) 105 70-99 [facility] HospitalLhnbyzeUJVDYMZGAHCU4500-51-71 01:33:00 Test Item Value Reference Range Interpretation Comments BUN (test code = BUN) 10 7-22 [facility] HospitalKylkmbvCLGBKKPGKRVT6888-29-81 01:33:00 Test Item Value Reference Range Interpretation Comments Sodium Lvl (test code = Sodium Lvl) 137 135-145 [facility] HospitalDikamuzUHPDBACQORSF1444-67-55 01:33:00 Test Item Value Reference Range Interpretation Comments Creatinine Lvl (test code = Creatinine 0.7 0.5-1.4 Lvl) [facility] HospitalDuglnwdICKFCSGEWKUO2498-76-88 01:33:00 Test Item Value Reference Range Interpretation Comments Chloride Lvl (test code = Chloride Lvl) 106 95-109 [facility] HospitalUmmgkdmLOAYPSUHQSXA9313-59-48 01:33:00 Test Item Value Reference Range Interpretation Comments AGAP (test code = AGAP) 9.9 10.0-20.0 [facility] HospitalKaitxevMZUNORVMZJPY9917-98-65 01:33:00 Test Item Value Reference Range Interpretation Comments A/G Ratio (test code = A/G Ratio) 0.8 0.7-1.6 [facility] HospitalGxtgmgyTMJDLMQGPVFW2859-02-03 01:33:00 Test Item Value Reference Range Interpretation Comments Globulin (test code = Globulin) 4.5 2.0-4.0 [facility] HospitalKpdghvoEUDLXOJIEINL8260-04-53 01:33:00 Test Item Value Reference Range Interpretation Comments B/C Ratio (test code = B/C Ratio) 14 6-25 [facility]WxtmzolXFLBDSZMEH8214-29-30 01:33:00 Test Item Value Reference Range Interpretation Comments Platelet (test code = Platelet) 306 133-450 [facility]stIqlvfghYIFNDLKZCP2531-50-40 01:33:00 Test Item Value Reference Range Interpretation Comments RDW (test code = RDW) 12.8 11.5-14.5 [facility]stCiiqwynXPZBIKMBTH5897-42-61 01:33:00 Test Item Value Reference Range Interpretation Comments MCH (test code = MCH) 29.4 pg 27.0-31.0 [facility]stEqvsyklSMRBUBBHKC5035-98-94 01:33:00 Test Item Value Reference Range Interpretation Comments MCHC (test code = MCHC) 32.0 32.0-36.0 [facility]stFtwquaiOLFMADNJCX6774-49-45 01:33:00 Test Item Value Reference Range Interpretation Comments Hct (test code = Hct) 41.3 36.0-48.0 [facility]stWrqopseSVSODHCHVQ1259-28-54 01:33:00 Test Item Value Reference Range Interpretation Comments MCV (test code = MCV) 91.8 80.0-98.0 [facility]stUaabgotVDYJNAAWDE0832-03-70 01:33:00 Test Item Value Reference Range Interpretation Comments MPV (test code = MPV) 8.2 7.4-10.4 [facility]stLddlaqqVXVFYKCBYK9205-89-57 01:33:00 Test Item Value Reference Range Interpretation Comments WBC (test code = WBC) 12.1 3.7-10.4 [facility]stXnhsdjtQUZDMMTAVF3242-57-30 01:33:00 Test Item Value Reference Range Interpretation Comments RBC (test code = RBC) 4.50 4.20-5.40 [facility]stXhsabxqJTJRGNHUKI1638-86-42 01:33:00 Test Item Value Reference Range Interpretation Comments Hgb (test code = Hgb) 13.2 12.0-16.0 [facility]stZetmlijUSTLSYGHMP8046-38-50 01:33:00 Test Item Value Reference Range Interpretation Comments Eosinophils # (test code 0.2 See_Comment [A utomated message] The = Eosinophils #) system whic h generated this result tra nsmitted reference range : <=0.5. The reference r kenneth was not used to int erpret this result as normal/abnormal . [facility]stGeqhdzeEBDZJKSYXF9422-40-97 01:33:00 Test Item Value Reference Range Interpretation Comments Basophils # (test code 0.1 See_Comment [Aut omated message] The = Basophils #) system which generated this result tra nsmitted reference range : <=0.2. The reference r kenneth was not used to int erpret this result as normal/abnormal . [facility]stWwjwarhWQKGWRVXCS5426-21-68 01:33:00 Test Item Value Reference Range Interpretation Comments Eosinophils (test code = 1.9 See_Comment [A utomated message] The Eosinophils) system which ge nerated this result tra nsmitted reference range : <=4.0. The reference r kenneth was not used to int erpret this result as normal/abnormal . [facility]stKgtzxtdNIOLGGAXNZ3900-72-70 01:33:00 Test Item Value Reference Range Interpretation Comments Monocytes # (test code 0.7 See_Comment [Aut omated message] The = Monocytes #) system which generated this result tra nsmitted reference range : <=0.8. The reference r kenneth was not used to int erpret this result as normal/abnormal . [facility]stXmfmiksWFRJJCHKKY3357-34-99 01:33:00 Test Item Value Reference Range Interpretation Comments Basophils (test code = 0.5 See_Comment [Aut omated message] The Basophils) system which ge nerated this result tra nsmitted reference range : <=1.0. The reference r kenneth was not used to int erpret this result as normal/abnormal . [facility]stNlikrzpQYCHMVWTTW7756-22-30 01:33:00 Test Item Value Reference Range Interpretation Comments Segs-Bands # (test code = Segs-Bands #) 8.4 1.5-8.1 [facility]stQzxanpqQOYOKKFSHO5793-73-35 01:33:00 Test Item Value Reference Range Interpretation Comments Lymphocytes # (test code = Lymphocytes 2.7 1.0-5.5 #) [facility]stKdrbsmfQACGGYXOGQ6850-19-07 01:33:00 Test Item Value Reference Range Interpretation Comments Segs (test code = Segs) 69.4 45.0-75.0 [facility]stElnhrjgMGMBVKSBAK1566-35-74 01:33:00 Test Item Value Reference Range Interpretation Comments Lymphocytes (test code = Lymphocytes) 22.2 20.0-40.0 [facility]stKeqqchxPPPKQOJGJB7559-31-54 01:33:00 Test Item Value Reference Range Interpretation Comments Monocytes (test code = Monocytes) 6.0 2.0-12.0 [facility]2015-10-28 01:33:00 Test Item Value Reference Range Interpretation Comments UA Renal Epi (test code = UA Renal 0-2 /LPF Epi) [facility] [id number] 01:33:00 Test Item Value Reference Range Interpretation Comments UA Bacteria (test code = None Seen (04/18/15 UA Bacteria) 8:33 PM) [facility] AND [id number] 01:33:00 Test Item Value Reference Range Interpretation Comments UA RBC (test code = 0-2 /HPF See_Comment [Automa regi message] The UA RBC) system which ge nerated this result tra nsmitted reference range : <=2. The reference range was not used to interpr et this result as nela l/abnormal. [facility] AND [id number] 01:33:00 Test Item Value Reference Range Interpretation Comments UA WBC (test code = UA WBC) 6-10 /HPF [facility] AND [id number] 01:33:00 Test Item Value Reference Range Interpretation Comments UA Sq Epi (test code = UA Sq Epi) Rare /LPF [facility] AND [id number] 01:33:00 Test Item Value Reference Range Interpretation Comments UA Blood (test code = Small *ABN*(04/18/15 UA Blood) 8:33 PM) [facility] AND [id number] 01:33:00 Test Item Value Reference Range Interpretation Comments UA Ketones (test code Negative *NA*(04/18/15 = UA Ketones) 8:33 PM) [facility] AND [id number] 01:33:00 Test Item Value Reference Range Interpretation Comments UA Urobilinogen (test code = UA 0.2 0.1-1.0 Urobilinogen) [facility] AND [id number] 01:33:00 Test Item Value Reference Range Interpretation Comments UA Bili (test code = Negative *NA*(04/18/15 UA Bili) 8:33 PM) [facility] AND [id number] 01:33:00 Test Item Value Reference Range Interpretation Comments UA Nitrite (test code Negative (04/18/15 8:33 = UA Nitrite) PM) [facility] AND [id number] 01:33:00 Test Item Value Reference Range Interpretation Comments UA Leuk Est (test code Trace *ABN*(04/18/15 = UA Leuk Est) 8:33 PM) [facility] AND [id number] 01:33:00 Test Item Value Reference Range Interpretation Comments UA Glucose (test code Negative (04/18/15 8:33 = UA Glucose) PM) [facility] [id number] 01:33:00 Test Item Value Reference Range Interpretation Comments UA Protein (test code Negative (04/18/15 8:33 = UA Protein) PM) [facility] [id number] 01:33:00 Test Item Value Reference Range Interpretation Comments UA Color (test code = Yellow *NA*(04/18/15 UA Color) 8:33 PM) [facility] [id number] 01:33:00 Test Item Value Reference Range Interpretation Comments UA Turbidity (test code = Clear (04/18/15 8:33 UA Turbidity) PM) [facility] AND [id number] 01:33:00 Test Item Value Reference Range Interpretation Comments UA pH (test code = UA pH) 6.5 1 5.0-8.0 [facility] [id number] 01:33:00 Test Item Value Reference Range Interpretation Comments UA Spec Grav (test code = UA Spec 1.015 1 Grav) [facility] [id number] 01:33:00 Test Item Value Reference Range Interpretation Comments U Preg (test code = U Negative (04/18/15 8:33 Preg) PM) [facility] [id number] 11:45:00 Test Item Value Reference Range Interpretation Comments Lipase Lvl (test code = Lipase Lvl) 196 73-393 [facility]2014-09-28 11:45:00 Test Item Value Reference Range Interpretation Comments Amylase Lvl (test code = Amylase Lvl) 35 25-115 [facility]2014-09-28 11:45:00 Test Item Value Reference Range Interpretation Comments A/G Ratio (test code = A/G Ratio) 0.8 0.7-1.6 [facility] [id number] 11:45:00 Test Item Value Reference Range Interpretation Comments B/C Ratio (test code = B/C Ratio) 18 6-25 [facility]2014-09-28 11:45:00 Test Item Value Reference Range Interpretation Comments AGAP (test code = AGAP) 13.9 10.0-20.0 [facility]2014-09-28 11:45:00 Test Item Value Reference Range Interpretation Comments Globulin (test code = Globulin) 4.5 2.0-4.0 [facility]2014-09-28 11:45:00 Test Item Value Reference Range Interpretation Comments eGFR (test code = eGFR) 102 [facility]2014-09-28 11:45:00 Test Item Value Reference Range Interpretation Comments Bili Total (test code = Bili Total) 0.6 0.2-1.3 [facility]2014-09-28 11:45:00 Test Item Value Reference Range Interpretation Comments Alk Phos (test code = Alk Phos) 115 39-136 [facility]2014-09-28 11:45:00 Test Item Value Reference Range Interpretation Comments AST (test code = AST) 81 See_Comment [Auto mated message] The system which ge nerated this result transmit regi reference range : <=37. The reference range was not used to interpr et this result as nela l/abnormal. [facility]2014-09-28 11:45:00 Test Item Value Reference Range Interpretation Comments Creatinine Lvl (test code = Creatinine 0.8 0.5-1.4 Lvl) [facility]2014-09-28 11:45:00 Test Item Value Reference Range Interpretation Comments Sodium Lvl (test code = Sodium Lvl) 139 135-145 [facility]2014-09-28 11:45:00 Test Item Value Reference Range Interpretation Comments Calcium Lvl (test code = Calcium Lvl) 8.5 8.5-10.5 [facility]2014-09-28 11:45:00 Test Item Value Reference Range Interpretation Comments CO2 (test code = CO2) 21 24-32 [facility]2014-09-28 11:45:00 Test Item Value Reference Range Interpretation Comments Chloride Lvl (test code = Chloride Lvl) 108 95-109 [facility]2014-09-28 11:45:00 Test Item Value Reference Range Interpretation Comments Potassium Lvl (test code = Potassium 3.9 3.5-5.1 Lvl) [facility]2014-09-28 11:45:00 Test Item Value Reference Range Interpretation Comments BUN (test code = BUN) 14 7-22 [facility]2014-09-28 11:45:00 Test Item Value Reference Range Interpretation Comments Glucose Lvl (test code = Glucose Lvl) 115 70-99 [facility]2014-09-28 11:45:00 Test Item Value Reference Range Interpretation Comments Total Protein (test code = Total 8.2 6.4-8.4 Protein) [facility]2014-09-28 11:45:00 Test Item Value Reference Range Interpretation Comments ALT (test code = ALT) 91 See_Comment [Auto mated message] The system which ge nerated this result transmit regi reference range : <=65. The reference range was not used to interpr et this result as nela l/abnormal. [facility]2014-09-28 11:45:00 Test Item Value Reference Range Interpretation Comments Albumin Lvl (test code = Albumin Lvl) 3.7 3.5-5.0 [facility]stUurxwduJCYRPIHIFY9309-01-32 11:45:00 Test Item Value Reference Range Interpretation Comments WBC (test code = WBC) 11.3 3.7-10.4 [facility]stGxdinggKSVMPYKKRP2742-12-66 11:45:00 Test Item Value Reference Range Interpretation Comments RBC (test code = RBC) 4.43 4.20-5.40 [facility]stLivpqneABVKXQFYYS1488-76-12 11:45:00 Test Item Value Reference Range Interpretation Comments MCV (test code = MCV) 88.3 80.0-98.0 [facility]stIlcscukVHICCOFFVS1631-85-13 11:45:00 Test Item Value Reference Range Interpretation Comments Hgb (test code = Hgb) 13.1 12.0-16.0 [facility]stErelkpiATQBQLQOWA7885-12-30 11:45:00 Test Item Value Reference Range Interpretation Comments Hct (test code = Hct) 39.1 36.0-48.0 [facility]stNqdeuotWTICEHVFID1993-84-76 11:45:00 Test Item Value Reference Range Interpretation Comments RDW (test code = RDW) 13.1 11.5-14.5 [facility]stGpmiqyuTXIJSQMXMD5296-58-19 11:45:00 Test Item Value Reference Range Interpretation Comments MCH (test code = MCH) 29.7 pg 27.0-31.0 [facility]stTpqhkgjDYELAYNEWW5191-58-68 11:45:00 Test Item Value Reference Range Interpretation Comments Platelet (test code = Platelet) 319 133-450 [place]474-09-28 11:45:00 Test Item Value Reference Range Interpretation Comments MCHC (test code = MCHC) 33.6 32.0-36.0 [facility]stYqalmmhWGXMPXJEKA5553-18-39 11:45:00 Test Item Value Reference Range Interpretation Comments MPV (test code = MPV) 8.1 7.4-10.4 [facility]stSkphxxlPUSAKHPEHH6532-58-51 11:45:00 Test Item Value Reference Range Interpretation Comments Monocytes (test code = Monocytes) 7.2 2.0-12.0 [facility]stDtakhiqVOHDJYADDQ9480-67-42 11:45:00 Test Item Value Reference Range Interpretation Comments Lymphocytes (test code = Lymphocytes) 14.9 20.0-40.0 [facility]stItmnlcnVHDMRAEHAU1493-13-90 11:45:00 Test Item Value Reference Range Interpretation Comments Segs (test code = Segs) 73.1 45.0-75.0 [facility]stDkthzcxVOMJMPLWJL1352-12-56 11:45:00 Test Item Value Reference Range Interpretation Comments Monocytes # (test code 0.8 See_Comment [Aut omated message] The = Monocytes #) system which generated this result tra nsmitted reference range : <=0.8. The reference r kenneth was not used to int erpret this result as normal/abnormal . [facility][id number] 11:45:00 Test Item Value Reference Range Interpretation Comments Lymphocytes # (test code = Lymphocytes 1.7 1.0-5.5 #) [facility]stMkooyjlQKYRAGTNQM8503-53-97 11:45:00 Test Item Value Reference Range Interpretation Comments Segs-Bands # (test code = Segs-Bands #) 8.3 1.5-8.1 [facility]stYueqwfiZTOVGLQXRW4829-83-01 11:45:00 Test Item Value Reference Range Interpretation Comments Basophils (test code = 0.9 See_Comment [Aut omated message] The Basophils) system which ge nerated this result tra nsmitted reference range : <=1.0. The reference r kenneth was not used to int erpret this result as normal/abnormal . [facility]stJjxlgmtMBSVOLVSFU4315-44-54 11:45:00 Test Item Value Reference Range Interpretation Comments Eosinophils (test code = 3.9 See_Comment [A utomated message] The Eosinophils) system which ge nerated this result tra nsmitted reference range : <=4.0. The reference r kenneth was not used to int erpret this result as normal/abnormal . [facility]stFdfsipsSAZPJRNPIF2834-28-28 11:45:00 Test Item Value Reference Range Interpretation Comments Basophils # (test code 0.1 See_Comment [Aut omated message] The = Basophils #) system which generated this result tra nsmitted reference range : <=0.2. The reference r kenneth was not used to int erpret this result as normal/abnormal . [facility]stJevgimcHGWOJXADDN3827-30-77 11:45:00 Test Item Value Reference Range Interpretation Comments Eosinophils # (test code 0.4 See_Comment [A utomated message] The = Eosinophils #) system whic h generated this result tra nsmitted reference range : <=0.5. The reference r kenneth was not used to int erpret this result as normal/abnormal . [facility] AND [id number] 11:45:00 Test Item Value Reference Range Interpretation Comments UA Sq Epi (test code = UA Sq Epi) Rare /LPF [facility] AND [id number] 11:45:00 Test Item Value Reference Range Interpretation Comments UA WBC (test code = UA WBC) 6-10 /HPF [facility] AND [id number] 11:45:00 Test Item Value Reference Range Interpretation Comments UA Nitrite (test code Negative (03/20/14 6:45 = UA Nitrite) AM) [facility] AND [id number] 11:45:00 Test Item Value Reference Range Interpretation Comments UA Leuk Est (test code Trace *ABN*(03/20/14 = UA Leuk Est) 6:45 AM) [facility] AND [id number] 11:45:00 Test Item Value Reference Range Interpretation Comments UA Urobilinogen (test code = UA 0.2 0.1-1.0 Urobilinogen) [facility] AND [id number] 11:45:00 Test Item Value Reference Range Interpretation Comments UA Spec Grav (test code = UA Spec 1.025 1 Grav) [facility] AND [id number] 11:45:00 Test Item Value Reference Range Interpretation Comments UA pH (test code = UA pH) 6.0 1 5.0-8.0 [facility] AND [id number] 11:45:00 Test Item Value Reference Range Interpretation Comments UA Color (test code = Yellow *NA*(03/20/14 UA Color) 6:45 AM) [facility] AND [id number] 11:45:00 Test Item Value Reference Range Interpretation Comments UA Turbidity (test code = Clear (03/20/14 6:45 UA Turbidity) AM) [facility] AND [id number] 11:45:00 Test Item Value Reference Range Interpretation Comments UA RBC (test code = 3-5 /HPF See_Comment [Automa regi message] The UA RBC) system which ge nerated this result tra nsmitted reference range : <=2. The reference range was not used to interpr et this result as nela l/abnormal. [facility] AND [id number] 11:45:00 Test Item Value Reference Range Interpretation Comments UA Blood (test code = Trace *ABN*(03/20/14 UA Blood) 6:45 AM) [facility] AND [id number] 11:45:00 Test Item Value Reference Range Interpretation Comments UA Protein (test code Negative (03/20/14 6:45 = UA Protein) AM) [facility] AND [id number] 11:45:00 Test Item Value Reference Range Interpretation Comments UA Ketones (test code Negative *NA*(03/20/14 = UA Ketones) 6:45 AM) [facility] AND [id number] 11:45:00 Test Item Value Reference Range Interpretation Comments UA Bili (test code = Negative *NA*(03/20/14 UA Bili) 6:45 AM) [facility] AND [id number] 11:45:00 Test Item Value Reference Range Interpretation Comments UA Glucose (test code Negative (03/20/14 6:45 = UA Glucose) AM) [facility] AND [id number] 11:45:00 Test Item Value Reference Range Interpretation Comments UA Bacteria (test code = UA Few /HPF Bacteria) [facility] [id number] 11:45:00 Test Item Value Reference Range Interpretation Comments U Preg (test code = U Negative (9/28/14 6:45 Preg) AM) [facility]2014-09-28 11:45:00 Test Item Value Reference Range Interpretation Comments Lipase Lvl (test code = Lipase Lvl) 196 73-393 [facility]2014-09-28 11:45:00 Test Item Value Reference Range Interpretation Comments Amylase Lvl (test code = Amylase Lvl) 35 25-115 [facility]2014-09-28 11:45:00 Test Item Value Reference Range Interpretation Comments A/G Ratio (test code = A/G Ratio) 0.8 0.7-1.6 [facility]2014-09-28 11:45:00 Test Item Value Reference Range Interpretation Comments B/C Ratio (test code = B/C Ratio) 18 6-25 [facility]2014-09-28 11:45:00 Test Item Value Reference Range Interpretation Comments AGAP (test code = AGAP) 13.9 10.0-20.0 [facility]2014-09-28 11:45:00 Test Item Value Reference Range Interpretation Comments Globulin (test code = Globulin) 4.5 2.0-4.0 [facility]2014-09-28 11:45:00 Test Item Value Reference Range Interpretation Comments eGFR (test code = eGFR) 102 [facility]2014-09-28 11:45:00 Test Item Value Reference Range Interpretation Comments Bili Total (test code = Bili Total) 0.6 0.2-1.3 [facility]2014-09-28 11:45:00 Test Item Value Reference Range Interpretation Comments Alk Phos (test code = Alk Phos) 115 39-136 [facility]2014-09-28 11:45:00 Test Item Value Reference Range Interpretation Comments AST (test code = AST) 81 See_Comment [Auto mated message] The system which ge nerated this result transmit regi reference range : <=37. The reference range was not used to interpr et this result as nela l/abnormal. [facility]2014-09-28 11:45:00 Test Item Value Reference Range Interpretation Comments Creatinine Lvl (test code = Creatinine 0.8 0.5-1.4 Lvl) [facility]2014-09-28 11:45:00 Test Item Value Reference Range Interpretation Comments Sodium Lvl (test code = Sodium Lvl) 139 135-145 [facility]2014-09-28 11:45:00 Test Item Value Reference Range Interpretation Comments Calcium Lvl (test code = Calcium Lvl) 8.5 8.5-10.5 [facility]2014-09-28 11:45:00 Test Item Value Reference Range Interpretation Comments CO2 (test code = CO2) 21 24-32 [facility]2014-09-28 11:45:00 Test Item Value Reference Range Interpretation Comments Chloride Lvl (test code = Chloride Lvl) 108 95-109 [facility]2014-09-28 11:45:00 Test Item Value Reference Range Interpretation Comments Potassium Lvl (test code = Potassium 3.9 3.5-5.1 Lvl) [facility]2014-09-28 11:45:00 Test Item Value Reference Range Interpretation Comments BUN (test code = BUN) 14 7-22 [facility]2014-09-28 11:45:00 Test Item Value Reference Range Interpretation Comments Glucose Lvl (test code = Glucose Lvl) 115 70-99 [facility]2014-09-28 11:45:00 Test Item Value Reference Range Interpretation Comments Total Protein (test code = Total 8.2 6.4-8.4 Protein) [facility]2014-09-28 11:45:00 Test Item Value Reference Range Interpretation Comments ALT (test code = ALT) 91 See_Comment [Auto mated message] The system which ge nerated this result transmit regi reference range : <=65. The reference range was not used to interpr et this result as nela l/abnormal. [facility]2014-09-28 11:45:00 Test Item Value Reference Range Interpretation Comments Albumin Lvl (test code = Albumin Lvl) 3.7 3.5-5.0 [facility]DbrnfhqWXYBRANOTC8898-19-08 11:45:00 Test Item Value Reference Range Interpretation Comments WBC (test code = WBC) 11.3 3.7-10.4 [facility]stAjeregrKISIXPSVSC3119-25-69 11:45:00 Test Item Value Reference Range Interpretation Comments RBC (test code = RBC) 4.43 4.20-5.40 [facility]stQsuiqvcKWTRLIZDPD2787-71-36 11:45:00 Test Item Value Reference Range Interpretation Comments MCV (test code = MCV) 88.3 80.0-98.0 [facility]stGwcbfytCZAWMGSFJJ5614-32-38 11:45:00 Test Item Value Reference Range Interpretation Comments Hgb (test code = Hgb) 13.1 12.0-16.0 [facility]stCmhaqnxILBIXYTZDA3968-95-53 11:45:00 Test Item Value Reference Range Interpretation Comments Hct (test code = Hct) 39.1 36.0-48.0 [facility]stFktzurfWLHTGJCMGO1247-99-56 11:45:00 Test Item Value Reference Range Interpretation Comments RDW (test code = RDW) 13.1 11.5-14.5 [facility]stEseqkfrMGNRICLMIF3910-26-04 11:45:00 Test Item Value Reference Range Interpretation Comments MCH (test code = MCH) 29.7 pg 27.0-31.0 [facility]stSqxjrrtABOCVQOVUA2767-78-40 11:45:00 Test Item Value Reference Range Interpretation Comments Platelet (test code = Platelet) 319 133-450 [facility][id number] 11:45:00 Test Item Value Reference Range Interpretation Comments MCHC (test code = MCHC) 33.6 32.0-36.0 [facility]stYxohlviJMYKGKGQDQ0040-03-84 11:45:00 Test Item Value Reference Range Interpretation Comments MPV (test code = MPV) 8.1 7.4-10.4 [facility]stGhgzarxZARIWVYWMU1764-37-42 11:45:00 Test Item Value Reference Range Interpretation Comments Monocytes (test code = Monocytes) 7.2 2.0-12.0 [facility]stDmcxqlfVGMHGPTKSB6206-89-87 11:45:00 Test Item Value Reference Range Interpretation Comments Lymphocytes (test code = Lymphocytes) 14.9 20.0-40.0 [facility]stUfdaiycSJZAALAPND9251-93-45 11:45:00 Test Item Value Reference Range Interpretation Comments Segs (test code = Segs) 73.1 45.0-75.0 [facility]stIwptkfvWIVPXZEUZB7694-17-68 11:45:00 Test Item Value Reference Range Interpretation Comments Monocytes # (test code 0.8 See_Comment [Aut omated message] The = Monocytes #) system which generated this result tra nsmitted reference range : <=0.8. The reference r kenneth was not used to int erpret this result as normal/abnormal . [facility]stWiqapaiOAJOIKLAZE4466-45-19 11:45:00 Test Item Value Reference Range Interpretation Comments Lymphocytes # (test code = Lymphocytes 1.7 1.0-5.5 #) [facility][id number] 11:45:00 Test Item Value Reference Range Interpretation Comments Segs-Bands # (test code = Segs-Bands #) 8.3 1.5-8.1 [id number] 11:45:00 Test Item Value Reference Range Interpretation Comments Basophils (test code = 0.9 See_Comment [Aut omated message] The Basophils) system which ge nerated this result tra nsmitted reference range : <=1.0. The reference r kenneth was not used to int erpret this result as normal/abnormal . [id number] 11:45:00 Test Item Value Reference Range Interpretation Comments Eosinophils (test code = 3.9 See_Comment [A utomated message] The Eosinophils) system which ge nerated this result tra nsmitted reference range : <=4.0. The reference r kenneth was not used to int erpret this result as normal/abnormal . [facility]stOxnlsgqFPSFHMQMXY2018-34-27 11:45:00 Test Item Value Reference Range Interpretation Comments Basophils # (test code 0.1 See_Comment [Aut omated message] The = Basophils #) system which generated this result tra nsmitted reference range : <=0.2. The reference r kenneth was not used to int erpret this result as normal/abnormal . [facility]stWqnepxnFNWUHFKDQZ5535-38-81 11:45:00 Test Item Value Reference Range Interpretation Comments Eosinophils # (test code 0.4 See_Comment [A utomated message] The = Eosinophils #) system whic h generated this result tra nsmitted reference range : <=0.5. The reference r kenneth was not used to int erpret this result as normal/abnormal . [facility]2014-09-28 11:45:00 Test Item Value Reference Range Interpretation Comments UA Sq Epi (test code = UA Sq Epi) Rare /LPF [facility]2014-09-28 11:45:00 Test Item Value Reference Range Interpretation Comments UA WBC (test code = UA WBC) 6-10 /HPF [facility] AND [id number] 11:45:00 Test Item Value Reference Range Interpretation Comments UA Nitrite (test code Negative (03/20/14 6:45 = UA Nitrite) AM) [facility] AND [id number] 11:45:00 Test Item Value Reference Range Interpretation Comments UA Leuk Est (test code Trace *ABN*(03/20/14 = UA Leuk Est) 6:45 AM) [facility] AND [id number] 11:45:00 Test Item Value Reference Range Interpretation Comments UA Urobilinogen (test code = UA 0.2 0.1-1.0 Urobilinogen) [facility] AND [id number] 11:45:00 Test Item Value Reference Range Interpretation Comments UA Spec Grav (test code = UA Spec 1.025 1 Grav) [facility] AND [id number] 11:45:00 Test Item Value Reference Range Interpretation Comments UA pH (test code = UA pH) 6.0 1 5.0-8.0 [facility] AND [id number] 11:45:00 Test Item Value Reference Range Interpretation Comments UA Color (test code = Yellow *NA*(03/20/14 UA Color) 6:45 AM) [facility] AND [id number] 11:45:00 Test Item Value Reference Range Interpretation Comments UA Turbidity (test code = Clear (03/20/14 6:45 UA Turbidity) AM) [facility] AND [id number] 11:45:00 Test Item Value Reference Range Interpretation Comments UA RBC (test code = 3-5 /HPF See_Comment [Automa regi message] The UA RBC) system which ge nerated this result tra nsmitted reference range : <=2. The reference range was not used to interpr et this result as nela l/abnormal. [facility] AND [id number] 11:45:00 Test Item Value Reference Range Interpretation Comments UA Blood (test code = Trace *ABN*(03/20/14 UA Blood) 6:45 AM) [facility] AND [id number] 11:45:00 Test Item Value Reference Range Interpretation Comments UA Protein (test code Negative (03/20/14 6:45 = UA Protein) AM) [facility] [id number] 11:45:00 Test Item Value Reference Range Interpretation Comments UA Ketones (test code Negative *NA*(03/20/14 = UA Ketones) 6:45 AM) [facility] [id number] 11:45:00 Test Item Value Reference Range Interpretation Comments UA Bili (test code = Negative *NA*(03/20/14 UA Bili) 6:45 AM) [facility] [id number] 11:45:00 Test Item Value Reference Range Interpretation Comments UA Glucose (test code Negative (03/20/14 6:45 = UA Glucose) AM) [facility] AND [id number] 11:45:00 Test Item Value Reference Range Interpretation Comments UA Bacteria (test code = UA Few /HPF Bacteria) [facility] [id number] 11:45:00 Test Item Value Reference Range Interpretation Comments U Preg (test code = U Negative (03/20/14 6:45 Preg) AM) [facility] [id number] 11:45:00 Test Item Value Reference Range Interpretation Comments Lipase Lvl (test code = Lipase Lvl) 196 73-393 [facility] [id number] 11:45:00 Test Item Value Reference Range Interpretation Comments Amylase Lvl (test code = Amylase Lvl) 35 25-115 [facility]2014-09-28 11:45:00 Test Item Value Reference Range Interpretation Comments A/G Ratio (test code = A/G Ratio) 0.8 0.7-1.6 [facility] [id number] 11:45:00 Test Item Value Reference Range Interpretation Comments B/C Ratio (test code = B/C Ratio) 18 6-25 [facility]2014-09-28 11:45:00 Test Item Value Reference Range Interpretation Comments AGAP (test code = AGAP) 13.9 10.0-20.0 [facility]2014-09-28 11:45:00 Test Item Value Reference Range Interpretation Comments Globulin (test code = Globulin) 4.5 2.0-4.0 [facility]2014-09-28 11:45:00 Test Item Value Reference Range Interpretation Comments eGFR (test code = eGFR) 102 [facility]2014-09-28 11:45:00 Test Item Value Reference Range Interpretation Comments Bili Total (test code = Bili Total) 0.6 0.2-1.3 [facility]2014-09-28 11:45:00 Test Item Value Reference Range Interpretation Comments Alk Phos (test code = Alk Phos) 115 39-136 [facility]2014-09-28 11:45:00 Test Item Value Reference Range Interpretation Comments AST (test code = AST) 81 See_Comment [Auto mated message] The system which ge nerated this result transmit regi reference range : <=37. The reference range was not used to interpr et this result as nela l/abnormal. [facility]2014-09-28 11:45:00 Test Item Value Reference Range Interpretation Comments Creatinine Lvl (test code = Creatinine 0.8 0.5-1.4 Lvl) [facility]2014-09-28 11:45:00 Test Item Value Reference Range Interpretation Comments Sodium Lvl (test code = Sodium Lvl) 139 135-145 [facility]2014-09-28 11:45:00 Test Item Value Reference Range Interpretation Comments Calcium Lvl (test code = Calcium Lvl) 8.5 8.5-10.5 [facility]2014-09-28 11:45:00 Test Item Value Reference Range Interpretation Comments CO2 (test code = CO2) 21 24-32 [facility]2014-09-28 11:45:00 Test Item Value Reference Range Interpretation Comments Chloride Lvl (test code = Chloride Lvl) 108 95-109 [facility]2014-09-28 11:45:00 Test Item Value Reference Range Interpretation Comments Potassium Lvl (test code = Potassium 3.9 3.5-5.1 Lvl) [facility]2014-09-28 11:45:00 Test Item Value Reference Range Interpretation Comments BUN (test code = BUN) 14 7-22 [facility]2014-09-28 11:45:00 Test Item Value Reference Range Interpretation Comments Glucose Lvl (test code = Glucose Lvl) 115 70-99 [facility]2014-09-28 11:45:00 Test Item Value Reference Range Interpretation Comments Total Protein (test code = Total 8.2 6.4-8.4 Protein) [facility]2014-09-28 11:45:00 Test Item Value Reference Range Interpretation Comments ALT (test code = ALT) 91 See_Comment [Auto mated message] The system which ge nerated this result transmit regi reference range : <=65. The reference range was not used to interpr et this result as nela l/abnormal. [facility]2014-09-28 11:45:00 Test Item Value Reference Range Interpretation Comments Albumin Lvl (test code = Albumin Lvl) 3.7 3.5-5.0 [facility]stUaononzCIXCGLEPPL4899-11-03 11:45:00 Test Item Value Reference Range Interpretation Comments WBC (test code = WBC) 11.3 3.7-10.4 [id number] 11:45:00 Test Item Value Reference Range Interpretation Comments RBC (test code = RBC) 4.43 4.20-5.40 [facility]stVlbbzehIHVKCQAKEU2396-71-06 11:45:00 Test Item Value Reference Range Interpretation Comments MCV (test code = MCV) 88.3 80.0-98.0 [id number] 11:45:00 Test Item Value Reference Range Interpretation Comments Hgb (test code = Hgb) 13.1 12.0-16.0 [facility]stCnvpnwbSPEADYGBZK1713-93-30 11:45:00 Test Item Value Reference Range Interpretation Comments Hct (test code = Hct) 39.1 36.0-48.0 [facility]stRxcrxeiHRWXCMJREA6725-28-85 11:45:00 Test Item Value Reference Range Interpretation Comments RDW (test code = RDW) 13.1 11.5-14.5 [facility]stCdoefajPDOEUMQXME3065-55-20 11:45:00 Test Item Value Reference Range Interpretation Comments MCH (test code = MCH) 29.7 pg 27.0-31.0 [id number] 11:45:00 Test Item Value Reference Range Interpretation Comments Platelet (test code = Platelet) 319 133-450 [id number] 11:45:00 Test Item Value Reference Range Interpretation Comments MCHC (test code = MCHC) 33.6 32.0-36.0 [facility]stDutfnayIDDNJVAIHL1267-17-20 11:45:00 Test Item Value Reference Range Interpretation Comments MPV (test code = MPV) 8.1 7.4-10.4 [facility]stZqugmgsRYSJOLPHJI1678-32-47 11:45:00 Test Item Value Reference Range Interpretation Comments Monocytes (test code = Monocytes) 7.2 2.0-12.0 [facility][id number] 11:45:00 Test Item Value Reference Range Interpretation Comments Lymphocytes (test code = Lymphocytes) 14.9 20.0-40.0 [facility]stLhwjuvcULQTFKGXSQ8849-29-80 11:45:00 Test Item Value Reference Range Interpretation Comments Segs (test code = Segs) 73.1 45.0-75.0 [facility]stPrvmvhyGNJBFJCJUC9767-26-08 11:45:00 Test Item Value Reference Range Interpretation Comments Monocytes # (test code 0.8 See_Comment [Aut omated message] The = Monocytes #) system which generated this result tra nsmitted reference range : <=0.8. The reference r kenneth was not used to int erpret this result as normal/abnormal . [id number] 11:45:00 Test Item Value Reference Range Interpretation Comments Lymphocytes # (test code = Lymphocytes 1.7 1.0-5.5 #) [facility]stOjcrnskDTJHEKEACT2317-27-05 11:45:00 Test Item Value Reference Range Interpretation Comments Segs-Bands # (test code = Segs-Bands #) 8.3 1.5-8.1 [id number] 11:45:00 Test Item Value Reference Range Interpretation Comments Basophils (test code = 0.9 See_Comment [Aut omated message] The Basophils) system which ge nerated this result tra nsmitted reference range : <=1.0. The reference r kenneth was not used to int erpret this result as normal/abnormal . [id number] 11:45:00 Test Item Value Reference Range Interpretation Comments Eosinophils (test code = 3.9 See_Comment [A utomated message] The Eosinophils) system which ge nerated this result tra nsmitted reference range : <=4.0. The reference r kenneth was not used to int erpret this result as normal/abnormal . [id number] 11:45:00 Test Item Value Reference Range Interpretation Comments Basophils # (test code 0.1 See_Comment [Aut omated message] The = Basophils #) system which generated this result tra nsmitted reference range : <=0.2. The reference r kenneth was not used to int erpret this result as normal/abnormal . [id number] 11:45:00 Test Item Value Reference Range Interpretation Comments Eosinophils # (test code 0.4 See_Comment [A utomated message] The = Eosinophils #) system whic h generated this result tra nsmitted reference range : <=0.5. The reference r kenneth was not used to int erpret this result as normal/abnormal . [facility] AND [id number] 11:45:00 Test Item Value Reference Range Interpretation Comments UA Sq Epi (test code = UA Sq Epi) Rare /LPF [facility] AND [id number] 11:45:00 Test Item Value Reference Range Interpretation Comments UA WBC (test code = UA WBC) 6-10 /HPF [facility] AND [id number] 11:45:00 Test Item Value Reference Range Interpretation Comments UA Nitrite (test code Negative (03/20/14 6:45 = UA Nitrite) AM) [facility] AND [id number] 11:45:00 Test Item Value Reference Range Interpretation Comments UA Leuk Est (test code Trace *ABN*(03/20/14 = UA Leuk Est) 6:45 AM) [facility] AND [id number] 11:45:00 Test Item Value Reference Range Interpretation Comments UA Urobilinogen (test code = UA 0.2 0.1-1.0 Urobilinogen) [facility] AND [id number] 11:45:00 Test Item Value Reference Range Interpretation Comments UA Spec Grav (test code = UA Spec 1.025 1 Grav) [facility] AND [id number] 11:45:00 Test Item Value Reference Range Interpretation Comments UA pH (test code = UA pH) 6.0 1 5.0-8.0 [facility] AND [id number] 11:45:00 Test Item Value Reference Range Interpretation Comments UA Color (test code = Yellow *NA*(03/20/14 UA Color) 6:45 AM) [facility] AND [id number] 11:45:00 Test Item Value Reference Range Interpretation Comments UA Turbidity (test code = Clear (03/20/14 6:45 UA Turbidity) AM) [facility] AND [id number] 11:45:00 Test Item Value Reference Range Interpretation Comments UA RBC (test code = 3-5 /HPF See_Comment [Automa regi message] The UA RBC) system which ge nerated this result tra nsmitted reference range : <=2. The reference range was not used to interpr et this result as nela l/abnormal. [facility] AND [id number] 11:45:00 Test Item Value Reference Range Interpretation Comments UA Blood (test code = Trace *ABN*(03/20/14 UA Blood) 6:45 AM) [facility] AND [id number] 11:45:00 Test Item Value Reference Range Interpretation Comments UA Protein (test code Negative (03/20/14 6:45 = UA Protein) AM) [facility] AND [id number] 11:45:00 Test Item Value Reference Range Interpretation Comments UA Ketones (test code Negative *NA*(03/20/14 = UA Ketones) 6:45 AM) [facility] AND [id number] 11:45:00 Test Item Value Reference Range Interpretation Comments UA Bili (test code = Negative *NA*(03/20/14 UA Bili) 6:45 AM) [facility] AND [id number] 11:45:00 Test Item Value Reference Range Interpretation Comments UA Glucose (test code Negative (03/20/14 6:45 = UA Glucose) AM) [facility] AND [id number] 11:45:00 Test Item Value Reference Range Interpretation Comments UA Bacteria (test code = UA Few /HPF Bacteria) [facility] [id number] 11:45:00 Test Item Value Reference Range Interpretation Comments U Preg (test code = U Negative (03/20/14 6:45 Preg) AM) [facility] [id number] 11:45:00 Test Item Value Reference Range Interpretation Comments Lipase Lvl (test code = Lipase Lvl) 196 73-393 [facility] [id number] 11:45:00 Test Item Value Reference Range Interpretation Comments Amylase Lvl (test code = Amylase Lvl) 35 25-115 [facility]2014-09-28 11:45:00 Test Item Value Reference Range Interpretation Comments A/G Ratio (test code = A/G Ratio) 0.8 0.7-1.6 [facility]2014-09-28 11:45:00 Test Item Value Reference Range Interpretation Comments B/C Ratio (test code = B/C Ratio) 18 6-25 [facility]2014-09-28 11:45:00 Test Item Value Reference Range Interpretation Comments AGAP (test code = AGAP) 13.9 10.0-20.0 [facility]2014-09-28 11:45:00 Test Item Value Reference Range Interpretation Comments Globulin (test code = Globulin) 4.5 2.0-4.0 [facility]2014-09-28 11:45:00 Test Item Value Reference Range Interpretation Comments eGFR (test code = eGFR) 102 [facility]2014-09-28 11:45:00 Test Item Value Reference Range Interpretation Comments Bili Total (test code = Bili Total) 0.6 0.2-1.3 [facility]2014-09-28 11:45:00 Test Item Value Reference Range Interpretation Comments Alk Phos (test code = Alk Phos) 115 39-136 [facility]2014-09-28 11:45:00 Test Item Value Reference Range Interpretation Comments AST (test code = AST) 81 See_Comment [Auto mated message] The system which ge nerated this result transmit regi reference range : <=37. The reference range was not used to interpr et this result as nela l/abnormal. [facility]2014-09-28 11:45:00 Test Item Value Reference Range Interpretation Comments Creatinine Lvl (test code = Creatinine 0.8 0.5-1.4 Lvl) [facility]2014-09-28 11:45:00 Test Item Value Reference Range Interpretation Comments Sodium Lvl (test code = Sodium Lvl) 139 135-145 [facility]2014-09-28 11:45:00 Test Item Value Reference Range Interpretation Comments Calcium Lvl (test code = Calcium Lvl) 8.5 8.5-10.5 [facility]2014-09-28 11:45:00 Test Item Value Reference Range Interpretation Comments CO2 (test code = CO2) 21 24-32 [facility]2014-09-28 11:45:00 Test Item Value Reference Range Interpretation Comments Chloride Lvl (test code = Chloride Lvl) 108 95-109 [facility]2014-09-28 11:45:00 Test Item Value Reference Range Interpretation Comments Potassium Lvl (test code = Potassium 3.9 3.5-5.1 Lvl) [facility]2014-09-28 11:45:00 Test Item Value Reference Range Interpretation Comments BUN (test code = BUN) 14 7-22 [facility]2014-09-28 11:45:00 Test Item Value Reference Range Interpretation Comments Glucose Lvl (test code = Glucose Lvl) 115 70-99 [facility]2014-09-28 11:45:00 Test Item Value Reference Range Interpretation Comments Total Protein (test code = Total 8.2 6.4-8.4 Protein) [facility]2014-09-28 11:45:00 Test Item Value Reference Range Interpretation Comments ALT (test code = ALT) 91 See_Comment [Auto mated message] The system which ge nerated this result transmit regi reference range : <=65. The reference range was not used to interpr et this result as nela l/abnormal. [facility]2014-09-28 11:45:00 Test Item Value Reference Range Interpretation Comments Albumin Lvl (test code = Albumin Lvl) 3.7 3.5-5.0 [id number] 11:45:00 Test Item Value Reference Range Interpretation Comments WBC (test code = WBC) 11.3 3.7-10.4 [id number] 11:45:00 Test Item Value Reference Range Interpretation Comments RBC (test code = RBC) 4.43 4.20-5.40 [facility] [id number] 11:45:00 Test Item Value Reference Range Interpretation Comments MCV (test code = MCV) 88.3 80.0-98.0 [facility]stItwjfryWTVMOUBKWY6654-26-84 11:45:00 Test Item Value Reference Range Interpretation Comments Hgb (test code = Hgb) 13.1 12.0-16.0 [facility] Hill[facility][id number] 11:45:00 Test Item Value Reference Range Interpretation Comments Hct (test code = Hct) 39.1 36.0-48.0 [facility] Hillcre[id number] 11:45:00 Test Item Value Reference Range Interpretation Comments RDW (test code = RDW) 13.1 11.5-14.5 [facility]stMpvwtjmCGSFGRHEIN5387-54-09 11:45:00 Test Item Value Reference Range Interpretation Comments MCH (test code = MCH) 29.7 pg 27.0-31.0 [facility] HillcrestEtvddkyRZQVBEUZOC5237-05-60 11:45:00 Test Item Value Reference Range Interpretation Comments Platelet (test code = Platelet) 319 133-450 [facility] HillcrestHsmidnzYFCRMBFRPP9867-61-04 11:45:00 Test Item Value Reference Range Interpretation Comments MCHC (test code = MCHC) 33.6 32.0-36.0 [facility] HillcrestGbdlcxgJQUKTZQNBU6814-30-84 11:45:00 Test Item Value Reference Range Interpretation Comments MPV (test code = MPV) 8.1 7.4-10.4 [facility]crestHjdvdboAQAUNCQYQH2336-43-18 11:45:00 Test Item Value Reference Range Interpretation Comments Monocytes (test code = Monocytes) 7.2 2.0-12.0 [facility] Hillcre[id number] 11:45:00 Test Item Value Reference Range Interpretation Comments Lymphocytes (test code = Lymphocytes) 14.9 20.0-40.0 [facility] HillcrestAovrxmuJIKTFZTGZP3936-82-10 11:45:00 Test Item Value Reference Range Interpretation Comments Segs (test code = Segs) 73.1 45.0-75.0 [facility] HillcrestPwftfzpIXJCTRKXFJ2651-68-25 11:45:00 Test Item Value Reference Range Interpretation Comments Monocytes # (test code 0.8 See_Comment [Aut omated message] The = Monocytes #) system which generated this result tra nsmitted reference range : <=0.8. The reference r kenneth was not used to int erpret this result as normal/abnormal . [facility] Hillcre[id number] 11:45:00 Test Item Value Reference Range Interpretation Comments Lymphocytes # (test code = Lymphocytes 1.7 1.0-5.5 #) [facility] Hillcre[id number] 11:45:00 Test Item Value Reference Range Interpretation Comments Segs-Bands # (test code = Segs-Bands #) 8.3 1.5-8.1 [facility] HillcrestMmuoibkKAKGPQZYGM7618-53-98 11:45:00 Test Item Value Reference Range Interpretation Comments Basophils (test code = 0.9 See_Comment [Aut omated message] The Basophils) system which ge nerated this result tra nsmitted reference range : <=1.0. The reference r kenneth was not used to int erpret this result as normal/abnormal . [id number] 11:45:00 Test Item Value Reference Range Interpretation Comments Eosinophils (test code = 3.9 See_Comment [A utomated message] The Eosinophils) system which ge nerated this result tra nsmitted reference range : <=4.0. The reference r kenneth was not used to int erpret this result as normal/abnormal . [facility] Hillcre[id number] 11:45:00 Test Item Value Reference Range Interpretation Comments Basophils # (test code 0.1 See_Comment [Aut omated message] The = Basophils #) system which generated this result tra nsmitted reference range : <=0.2. The reference r kenneth was not used to int erpret this result as normal/abnormal . [facility] HillcrestBinntyeKVFVOWFSRG7536-09-25 11:45:00 Test Item Value Reference Range Interpretation Comments Eosinophils # (test code 0.4 See_Comment [A utomated message] The = Eosinophils #) system [facility] generated this result tra nsmitted reference range : <=0.5. The reference r kenneth was not used to int erpret this result as normal/abnormal . [facility] AND [id number] 11:45:00 Test Item Value Reference Range Interpretation Comments UA Sq Epi (test code = UA Sq Epi) Rare /LPF [facility] AND [id number] 11:45:00 Test Item Value Reference Range Interpretation Comments UA WBC (test code = UA WBC) 6-10 /HPF [facility] AND [id number] 11:45:00 Test Item Value Reference Range Interpretation Comments UA Nitrite (test code Negative (03/20/14 6:45 = UA Nitrite) AM) [facility] AND [id number] 11:45:00 Test Item Value Reference Range Interpretation Comments UA Leuk Est (test code Trace *ABN*(03/20/14 = UA Leuk Est) 6:45 AM) [facility] AND [id number] 11:45:00 Test Item Value Reference Range Interpretation Comments UA Urobilinogen (test code = UA 0.2 0.1-1.0 Urobilinogen) [facility] AND [id number] 11:45:00 Test Item Value Reference Range Interpretation Comments UA Spec Grav (test code = UA Spec 1.025 1 Grav) [facility] AND [id number] 11:45:00 Test Item Value Reference Range Interpretation Comments UA pH (test code = UA pH) 6.0 1 5.0-8.0 [facility] AND [id number] 11:45:00 Test Item Value Reference Range Interpretation Comments UA Color (test code = Yellow *NA*(03/20/14 UA Color) 6:45 AM) [facility] AND [id number] 11:45:00 Test Item Value Reference Range Interpretation Comments UA Turbidity (test code = Clear (03/20/14 6:45 UA Turbidity) AM) [facility] AND [id number] 11:45:00 Test Item Value Reference Range Interpretation Comments UA RBC (test code = 3-5 /HPF See_Comment [Automa regi message] The UA RBC) system which ge nerated this result tra nsmitted reference range : <=2. The reference range was not used to interpr et this result as nela l/abnormal. [facility] AND [id number] 11:45:00 Test Item Value Reference Range Interpretation Comments UA Blood (test code = Trace *ABN*(03/20/14 UA Blood) 6:45 AM) [facility] AND [id number] 11:45:00 Test Item Value Reference Range Interpretation Comments UA Protein (test code Negative (03/20/14 6:45 = UA Protein) AM) [facility] AND [id number] 11:45:00 Test Item Value Reference Range Interpretation Comments UA Ketones (test code Negative *NA*(03/20/14 = UA Ketones) 6:45 AM) [facility] [id number] 11:45:00 Test Item Value Reference Range Interpretation Comments UA Bili (test code = Negative *NA*(03/20/14 UA Bili) 6:45 AM) [facility] [id number] 11:45:00 Test Item Value Reference Range Interpretation Comments UA Glucose (test code Negative (03/20/14 6:45 = UA Glucose) AM) [facility] [id number] 11:45:00 Test Item Value Reference Range Interpretation Comments UA Bacteria (test code = UA Few /HPF Bacteria) [facility] [id number] 11:45:00 Test Item Value Reference Range Interpretation Comments U Preg (test code = U Negative (03/20/14 6:45 Preg) AM) [facility] [id number] 11:45:00 Test Item Value Reference Range Interpretation Comments Lipase Lvl (test code = Lipase Lvl) 196 73-393 [facility] [id number] 11:45:00 Test Item Value Reference Range Interpretation Comments Amylase Lvl (test code = Amylase Lvl) 35 25-115 [facility]2014-09-28 11:45:00 Test Item Value Reference Range Interpretation Comments A/G Ratio (test code = A/G Ratio) 0.8 0.7-1.6 [facility]2014-09-28 11:45:00 Test Item Value Reference Range Interpretation Comments B/C Ratio (test code = B/C Ratio) 18 6-25 [facility] [id number] 11:45:00 Test Item Value Reference Range Interpretation Comments AGAP (test code = AGAP) 13.9 10.0-20.0 [facility]2014-09-28 11:45:00 Test Item Value Reference Range Interpretation Comments Globulin (test code = Globulin) 4.5 2.0-4.0 [facility]2014-09-28 11:45:00 Test Item Value Reference Range Interpretation Comments eGFR (test code = eGFR) 102 [facility] [id number] 11:45:00 Test Item Value Reference Range Interpretation Comments Bili Total (test code = Bili Total) 0.6 0.2-1.3 [facility]2014-09-28 11:45:00 Test Item Value Reference Range Interpretation Comments Alk Phos (test code = Alk Phos) 115 39-136 [facility]2014-09-28 11:45:00 Test Item Value Reference Range Interpretation Comments AST (test code = AST) 81 See_Comment [Auto mated message] The system which ge nerated this result transmit regi reference range : <=37. The reference range was not used to interpr et this result as nela l/abnormal. [facility]2014-09-28 11:45:00 Test Item Value Reference Range Interpretation Comments Creatinine Lvl (test code = Creatinine 0.8 0.5-1.4 Lvl) [facility]2014-09-28 11:45:00 Test Item Value Reference Range Interpretation Comments Sodium Lvl (test code = Sodium Lvl) 139 135-145 [facility]2014-09-28 11:45:00 Test Item Value Reference Range Interpretation Comments Calcium Lvl (test code = Calcium Lvl) 8.5 8.5-10.5 [facility]2014-09-28 11:45:00 Test Item Value Reference Range Interpretation Comments CO2 (test code = CO2) 21 24-32 [facility]2014-09-28 11:45:00 Test Item Value Reference Range Interpretation Comments Chloride Lvl (test code = Chloride Lvl) 108 95-109 [facility]2014-09-28 11:45:00 Test Item Value Reference Range Interpretation Comments Potassium Lvl (test code = Potassium 3.9 3.5-5.1 Lvl) [facility]2014-09-28 11:45:00 Test Item Value Reference Range Interpretation Comments BUN (test code = BUN) 14 7-22 [facility]2014-09-28 11:45:00 Test Item Value Reference Range Interpretation Comments Glucose Lvl (test code = Glucose Lvl) 115 70-99 [facility]2014-09-28 11:45:00 Test Item Value Reference Range Interpretation Comments Total Protein (test code = Total 8.2 6.4-8.4 Protein) [facility]2014-09-28 11:45:00 Test Item Value Reference Range Interpretation Comments ALT (test code = ALT) 91 See_Comment [Auto mated message] The system which ge nerated this result transmit regi reference range : <=65. The reference range was not used to interpr et this result as nela l/abnormal. [facility]2014-09-28 11:45:00 Test Item Value Reference Range Interpretation Comments Albumin Lvl (test code = Albumin Lvl) 3.7 3.5-5.0 [id number] 11:45:00 Test Item Value Reference Range Interpretation Comments WBC (test code = WBC) 11.3 3.7-10.4 [id number] 11:45:00 Test Item Value Reference Range Interpretation Comments RBC (test code = RBC) 4.43 4.20-5.40 [id number] 11:45:00 Test Item Value Reference Range Interpretation Comments MCV (test code = MCV) 88.3 80.0-98.0 [facility] Hi[id number] 11:45:00 Test Item Value Reference Range Interpretation Comments Hgb (test code = Hgb) 13.1 12.0-16.0 [id number] 11:45:00 Test Item Value Reference Range Interpretation Comments Hct (test code = Hct) 39.1 36.0-48.0 [facility] Hi[id number] 11:45:00 Test Item Value Reference Range Interpretation Comments RDW (test code = RDW) 13.1 11.5-14.5 [facility] Hillcre[id number] 11:45:00 Test Item Value Reference Range Interpretation Comments MCH (test code = MCH) 29.7 pg 27.0-31.0 [facility] Hi[id number] 11:45:00 Test Item Value Reference Range Interpretation Comments Platelet (test code = Platelet) 319 133-450 [facility] Hi[id number] 11:45:00 Test Item Value Reference Range Interpretation Comments MCHC (test code = MCHC) 33.6 32.0-36.0 [facility]stLaragbpQJTRJQGGLD4411-08-60 11:45:00 Test Item Value Reference Range Interpretation Comments MPV (test code = MPV) 8.1 7.4-10.4 [facility] HillcrestKufeftrZPAMKLPHKJ8004-09-13 11:45:00 Test Item Value Reference Range Interpretation Comments Monocytes (test code = Monocytes) 7.2 2.0-12.0 [facility] HillcrestByyktkhALOUEWESRK8728-06-33 11:45:00 Test Item Value Reference Range Interpretation Comments Lymphocytes (test code = Lymphocytes) 14.9 20.0-40.0 [facility] HillcrestPvzrhvnCLTPBZLJTI9931-80-01 11:45:00 Test Item Value Reference Range Interpretation Comments Segs (test code = Segs) 73.1 45.0-75.0 [id number] 11:45:00 Test Item Value Reference Range Interpretation Comments Monocytes # (test code 0.8 See_Comment [Aut omated message] The = Monocytes #) system which generated this result tra nsmitted reference range : <=0.8. The reference r kenneth was not used to int erpret this result as normal/abnormal . [id number] 11:45:00 Test Item Value Reference Range Interpretation Comments Lymphocytes # (test code = Lymphocytes 1.7 1.0-5.5 #) [id number] 11:45:00 Test Item Value Reference Range Interpretation Comments Segs-Bands # (test code = Segs-Bands #) 8.3 1.5-8.1 [facility]stEvhptovDTXLOHKLWB4814-09-94 11:45:00 Test Item Value Reference Range Interpretation Comments Basophils (test code = 0.9 See_Comment [Aut omated message] The Basophils) system which ge nerated this result tra nsmitted reference range : <=1.0. The reference r kenneth was not used to int erpret this result as normal/abnormal . [facility][id number] 11:45:00 Test Item Value Reference Range Interpretation Comments Eosinophils (test code = 3.9 See_Comment [A utomated message] The Eosinophils) system which ge nerated this result tra nsmitted reference range : <=4.0. The reference r kenneth was not used to int erpret this result as normal/abnormal . [facility]stBlpdwjmRFMXDKEMRP0863-09-49 11:45:00 Test Item Value Reference Range Interpretation Comments Basophils # (test code 0.1 See_Comment [Aut omated message] The = Basophils #) system which generated this result tra nsmitted reference range : <=0.2. The reference r kenneth was not used to int erpret this result as normal/abnormal . [facility] [id number] 11:45:00 Test Item Value Reference Range Interpretation Comments Eosinophils # (test code 0.4 See_Comment [A utomated message] The = Eosinophils #) system whic h generated this result tra nsmitted reference range : <=0.5. The reference r kenneth was not used to int erpret this result as normal/abnormal . [facility] AND [id number] 11:45:00 Test Item Value Reference Range Interpretation Comments UA Sq Epi (test code = UA Sq Epi) Rare /LPF [facility] AND [id number] 11:45:00 Test Item Value Reference Range Interpretation Comments UA WBC (test code = UA WBC) 6-10 /HPF [facility] AND [id number] 11:45:00 Test Item Value Reference Range Interpretation Comments UA Nitrite (test code Negative (03/20/14 6:45 = UA Nitrite) AM) [facility] AND [id number] 11:45:00 Test Item Value Reference Range Interpretation Comments UA Leuk Est (test code Trace *ABN*(03/20/14 = UA Leuk Est) 6:45 AM) [facility] AND [id number] 11:45:00 Test Item Value Reference Range Interpretation Comments UA Urobilinogen (test code = UA 0.2 0.1-1.0 Urobilinogen) [facility] AND [id number] 11:45:00 Test Item Value Reference Range Interpretation Comments UA Spec Grav (test code = UA Spec 1.025 1 Grav) [facility] AND [id number] 11:45:00 Test Item Value Reference Range Interpretation Comments UA pH (test code = UA pH) 6.0 1 5.0-8.0 [facility] AND [id number] 11:45:00 Test Item Value Reference Range Interpretation Comments UA Color (test code = Yellow *NA*(03/20/14 UA Color) 6:45 AM) [facility] AND [id number] 11:45:00 Test Item Value Reference Range Interpretation Comments UA Turbidity (test code = Clear (03/20/14 6:45 UA Turbidity) AM) [facility] [id number] 11:45:00 Test Item Value Reference Range Interpretation Comments UA RBC (test code = 3-5 /HPF See_Comment [Automa regi message] The UA RBC) system which ge nerated this result tra nsmitted reference range : <=2. The reference range was not used to interpr et this result as nela l/abnormal. [facility] [id number] 11:45:00 Test Item Value Reference Range Interpretation Comments UA Blood (test code = Trace *ABN*(03/20/14 UA Blood) 6:45 AM) [facility] [id number] 11:45:00 Test Item Value Reference Range Interpretation Comments UA Protein (test code Negative (03/20/14 6:45 = UA Protein) AM) [facility] AND [id number] 11:45:00 Test Item Value Reference Range Interpretation Comments UA Ketones (test code Negative *NA*(03/20/14 = UA Ketones) 6:45 AM) [facility] AND [id number] 11:45:00 Test Item Value Reference Range Interpretation Comments UA Bili (test code = Negative *NA*(03/20/14 UA Bili) 6:45 AM) [facility] AND [id number] 11:45:00 Test Item Value Reference Range Interpretation Comments UA Glucose (test code Negative (03/20/14 6:45 = UA Glucose) AM) [facility] AND [id number] 11:45:00 Test Item Value Reference Range Interpretation Comments UA Bacteria (test code = UA Few /HPF Bacteria) [facility] [id number] 11:45:00 Test Item Value Reference Range Interpretation Comments U Preg (test code = U Negative (03/20/14 6:45 Preg) AM) [facility]annCHEM [id number] 11:45:00 Test Item Value Reference Range Interpretation Comments Lipase Lvl (test code = Lipase Lvl) 196 73-393 [facility] [id number] 11:45:00 Test Item Value Reference Range Interpretation Comments Amylase Lvl (test code = Amylase Lvl) 35 25-115 [facility] [employer] [id number] 11:45:00 Test Item Value Reference Range Interpretation Comments A/G Ratio (test code = A/G Ratio) 0.8 0.7-1.6 [facility]2014-09-28 11:45:00 Test Item Value Reference Range Interpretation Comments B/C Ratio (test code = B/C Ratio) 18 6-25 [facility]2014-09-28 11:45:00 Test Item Value Reference Range Interpretation Comments AGAP (test code = AGAP) 13.9 10.0-20.0 [facility]2014-09-28 11:45:00 Test Item Value Reference Range Interpretation Comments Globulin (test code = Globulin) 4.5 2.0-4.0 [facility]2014-09-28 11:45:00 Test Item Value Reference Range Interpretation Comments eGFR (test code = eGFR) 102 [facility]2014-09-28 11:45:00 Test Item Value Reference Range Interpretation Comments Bili Total (test code = Bili Total) 0.6 0.2-1.3 [facility]2014-09-28 11:45:00 Test Item Value Reference Range Interpretation Comments Alk Phos (test code = Alk Phos) 115 39-136 [facility]2014-09-28 11:45:00 Test Item Value Reference Range Interpretation Comments AST (test code = AST) 81 See_Comment [Auto mated message] The system which ge nerated this result transmit regi reference range : <=37. The reference range was not used to interpr et this result as nela l/abnormal. [facility]2014-09-28 11:45:00 Test Item Value Reference Range Interpretation Comments Creatinine Lvl (test code = Creatinine 0.8 0.5-1.4 Lvl) [facility]2014-09-28 11:45:00 Test Item Value Reference Range Interpretation Comments Sodium Lvl (test code = Sodium Lvl) 139 135-145 [facility]2014-09-28 11:45:00 Test Item Value Reference Range Interpretation Comments Calcium Lvl (test code = Calcium Lvl) 8.5 8.5-10.5 [facility]2014-09-28 11:45:00 Test Item Value Reference Range Interpretation Comments CO2 (test code = CO2) 21 24-32 [facility]2014-09-28 11:45:00 Test Item Value Reference Range Interpretation Comments Chloride Lvl (test code = Chloride Lvl) 108 95-109 [facility]2014-09-28 11:45:00 Test Item Value Reference Range Interpretation Comments Potassium Lvl (test code = Potassium 3.9 3.5-5.1 Lvl) [facility]2014-09-28 11:45:00 Test Item Value Reference Range Interpretation Comments BUN (test code = BUN) 14 7-22 [facility]2014-09-28 11:45:00 Test Item Value Reference Range Interpretation Comments Glucose Lvl (test code = Glucose Lvl) 115 70-99 [facility]2014-09-28 11:45:00 Test Item Value Reference Range Interpretation Comments Total Protein (test code = Total 8.2 6.4-8.4 Protein) [facility]2014-09-28 11:45:00 Test Item Value Reference Range Interpretation Comments ALT (test code = ALT) 91 See_Comment [Auto mated message] The system which ge nerated this result transmit regi reference range : <=65. The reference range was not used to interpr et this result as nela l/abnormal. [facility]2014-09-28 11:45:00 Test Item Value Reference Range Interpretation Comments Albumin Lvl (test code = Albumin Lvl) 3.7 3.5-5.0 [id number] 11:45:00 Test Item Value Reference Range Interpretation Comments WBC (test code = WBC) 11.3 3.7-10.4 [id number] 11:45:00 Test Item Value Reference Range Interpretation Comments RBC (test code = RBC) 4.43 4.20-5.40 [id number] 11:45:00 Test Item Value Reference Range Interpretation Comments MCV (test code = MCV) 88.3 80.0-98.0 [id number] 11:45:00 Test Item Value Reference Range Interpretation Comments Hgb (test code = Hgb) 13.1 12.0-16.0 [id number] 11:45:00 Test Item Value Reference Range Interpretation Comments Hct (test code = Hct) 39.1 36.0-48.0 [facility][id number] 11:45:00 Test Item Value Reference Range Interpretation Comments RDW (test code = RDW) 13.1 11.5-14.5 [facility] HillcrestGzweowmWPVCBLBBRR9611-19-20 11:45:00 Test Item Value Reference Range Interpretation Comments MCH (test code = MCH) 29.7 pg 27.0-31.0 [facility] Hill[id number] 11:45:00 Test Item Value Reference Range Interpretation Comments Platelet (test code = Platelet) 319 133-450 [facility] Hi[id number] 11:45:00 Test Item Value Reference Range Interpretation Comments MCHC (test code = MCHC) 33.6 32.0-36.0 [facility]VuqqalqNOGKFMDRSW3375-50-14 11:45:00 Test Item Value Reference Range Interpretation Comments MPV (test code = MPV) 8.1 7.4-10.4 [facility]stXnnthoqZPUUUAGHUJ7853-99-93 11:45:00 Test Item Value Reference Range Interpretation Comments Monocytes (test code = Monocytes) 7.2 2.0-12.0 [facility]stGbzikqsVOIHNIKQLV2568-72-46 11:45:00 Test Item Value Reference Range Interpretation Comments Lymphocytes (test code = Lymphocytes) 14.9 20.0-40.0 [facility]stDdxgdmnBRECVDLELF1696-97-29 11:45:00 Test Item Value Reference Range Interpretation Comments Segs (test code = Segs) 73.1 45.0-75.0 [facility]stMurpoxhICXBBOLGFZ2181-88-92 11:45:00 Test Item Value Reference Range Interpretation Comments Monocytes # (test code 0.8 See_Comment [Aut omated message] The = Monocytes #) system which generated this result tra nsmitted reference range : <=0.8. The reference r kenneth was not used to int erpret this result as normal/abnormal . [facility]stVachxxbAQVXSWCNMT1092-59-25 11:45:00 Test Item Value Reference Range Interpretation Comments Lymphocytes # (test code = Lymphocytes 1.7 1.0-5.5 #) [facility]stLhxrakhDJRHFQVFDD6091-67-84 11:45:00 Test Item Value Reference Range Interpretation Comments Segs-Bands # (test code = Segs-Bands #) 8.3 1.5-8.1 [facility]stZsgmpfpOVAVFDPJCA0849-26-08 11:45:00 Test Item Value Reference Range Interpretation Comments Basophils (test code = 0.9 See_Comment [Aut omated message] The Basophils) system which ge nerated this result tra nsmitted reference range : <=1.0. The reference r kenneth was not used to int erpret this result as normal/abnormal . [facility]stMwqnhlzRMVLYOTFNC8579-95-27 11:45:00 Test Item Value Reference Range Interpretation Comments Eosinophils (test code = 3.9 See_Comment [A utomated message] The Eosinophils) system which ge nerated this result tra nsmitted reference range : <=4.0. The reference r kenneth was not used to int erpret this result as normal/abnormal . [facility]stNmpxnceXQKBBOGVMJ4419-74-29 11:45:00 Test Item Value Reference Range Interpretation Comments Basophils # (test code 0.1 See_Comment [Aut omated message] The = Basophils #) system which generated this result tra nsmitted reference range : <=0.2. The reference r kenneth was not used to int erpret this result as normal/abnormal . [facility]stUfgyqwlXUYQTAPJJK9538-14-09 11:45:00 Test Item Value Reference Range Interpretation Comments Eosinophils # (test code 0.4 See_Comment [A utomated message] The = Eosinophils #) system whic h generated this result tra nsmitted reference range : <=0.5. The reference r kenneth was not used to int erpret this result as normal/abnormal . [facility] AND [id number] 11:45:00 Test Item Value Reference Range Interpretation Comments UA Sq Epi (test code = UA Sq Epi) Rare /LPF [facility] AND [id number] 11:45:00 Test Item Value Reference Range Interpretation Comments UA WBC (test code = UA WBC) 6-10 /HPF [facility] AND [id number] 11:45:00 Test Item Value Reference Range Interpretation Comments UA Nitrite (test code Negative (03/20/14 6:45 = UA Nitrite) AM) [facility] AND [id number] 11:45:00 Test Item Value Reference Range Interpretation Comments UA Leuk Est (test code Trace *ABN*(03/20/14 = UA Leuk Est) 6:45 AM) [facility] AND [id number] 11:45:00 Test Item Value Reference Range Interpretation Comments UA Urobilinogen (test code = UA 0.2 0.1-1.0 Urobilinogen) [facility] AND [id number] 11:45:00 Test Item Value Reference Range Interpretation Comments UA Spec Grav (test code = UA Spec 1.025 1 Grav) [facility] AND [id number] 11:45:00 Test Item Value Reference Range Interpretation Comments UA pH (test code = UA pH) 6.0 1 5.0-8.0 [facility] AND [id number] 11:45:00 Test Item Value Reference Range Interpretation Comments UA Color (test code = Yellow *NA*(03/20/14 UA Color) 6:45 AM) [facility] AND [id number] 11:45:00 Test Item Value Reference Range Interpretation Comments UA Turbidity (test code = Clear (03/20/14 6:45 UA Turbidity) AM) [facility] AND [id number] 11:45:00 Test Item Value Reference Range Interpretation Comments UA RBC (test code = 3-5 /HPF See_Comment [Automa regi message] The UA RBC) system which ge nerated this result tra nsmitted reference range : <=2. The reference range was not used to interpr et this result as nela l/abnormal. [facility] AND [id number] 11:45:00 Test Item Value Reference Range Interpretation Comments UA Blood (test code = Trace *ABN*(03/20/14 UA Blood) 6:45 AM) [facility] AND [id number] 11:45:00 Test Item Value Reference Range Interpretation Comments UA Protein (test code Negative (03/20/14 6:45 = UA Protein) AM) [facility] AND [id number] 11:45:00 Test Item Value Reference Range Interpretation Comments UA Ketones (test code Negative *NA*(03/20/14 = UA Ketones) 6:45 AM) [facility] AND [id number] 11:45:00 Test Item Value Reference Range Interpretation Comments UA Bili (test code = Negative *NA*(03/20/14 UA Bili) 6:45 AM) [facility] AND [id number] 11:45:00 Test Item Value Reference Range Interpretation Comments UA Glucose (test code Negative (03/20/14 6:45 = UA Glucose) AM) [facility] AND [id number] 11:45:00 Test Item Value Reference Range Interpretation Comments UA Bacteria (test code = UA Few /HPF Bacteria) [facility] [id number] 11:45:00 Test Item Value Reference Range Interpretation Comments U Preg (test code = U Negative (03/20/14 6:45 Preg) AM) [facility] [id number] 11:45:00 Test Item Value Reference Range Interpretation Comments Lipase Lvl (test code = Lipase Lvl) 196 73-393 [facility]2014-09-28 11:45:00 Test Item Value Reference Range Interpretation Comments Amylase Lvl (test code = Amylase Lvl) 35 25-115 [facility]2014-09-28 11:45:00 Test Item Value Reference Range Interpretation Comments A/G Ratio (test code = A/G Ratio) 0.8 0.7-1.6 [facility]2014-09-28 11:45:00 Test Item Value Reference Range Interpretation Comments B/C Ratio (test code = B/C Ratio) 18 6-25 [facility]2014-09-28 11:45:00 Test Item Value Reference Range Interpretation Comments AGAP (test code = AGAP) 13.9 10.0-20.0 [facility]2014-09-28 11:45:00 Test Item Value Reference Range Interpretation Comments Globulin (test code = Globulin) 4.5 2.0-4.0 [facility]2014-09-28 11:45:00 Test Item Value Reference Range Interpretation Comments eGFR (test code = eGFR) 102 [facility]2014-09-28 11:45:00 Test Item Value Reference Range Interpretation Comments Bili Total (test code = Bili Total) 0.6 0.2-1.3 [facility]2014-09-28 11:45:00 Test Item Value Reference Range Interpretation Comments Alk Phos (test code = Alk Phos) 115 39-136 [facility]2014-09-28 11:45:00 Test Item Value Reference Range Interpretation Comments AST (test code = AST) 81 See_Comment [Auto mated message] The system which ge nerated this result transmit regi reference range : <=37. The reference range was not used to interpr et this result as nela l/abnormal. [facility]2014-09-28 11:45:00 Test Item Value Reference Range Interpretation Comments Creatinine Lvl (test code = Creatinine 0.8 0.5-1.4 Lvl) [facility]2014-09-28 11:45:00 Test Item Value Reference Range Interpretation Comments Sodium Lvl (test code = Sodium Lvl) 139 135-145 [facility]2014-09-28 11:45:00 Test Item Value Reference Range Interpretation Comments Calcium Lvl (test code = Calcium Lvl) 8.5 8.5-10.5 [facility]2014-09-28 11:45:00 Test Item Value Reference Range Interpretation Comments CO2 (test code = CO2) 21 24-32 [facility]2014-09-28 11:45:00 Test Item Value Reference Range Interpretation Comments Chloride Lvl (test code = Chloride Lvl) 108 95-109 [facility]2014-09-28 11:45:00 Test Item Value Reference Range Interpretation Comments Potassium Lvl (test code = Potassium 3.9 3.5-5.1 Lvl) [facility]2014-09-28 11:45:00 Test Item Value Reference Range Interpretation Comments BUN (test code = BUN) 14 7-22 [facility]2014-09-28 11:45:00 Test Item Value Reference Range Interpretation Comments Glucose Lvl (test code = Glucose Lvl) 115 70-99 [facility]2014-09-28 11:45:00 Test Item Value Reference Range Interpretation Comments Total Protein (test code = Total 8.2 6.4-8.4 Protein) [facility]2014-09-28 11:45:00 Test Item Value Reference Range Interpretation Comments ALT (test code = ALT) 91 See_Comment [Auto mated message] The system which ge nerated this result transmit regi reference range : <=65. The reference range was not used to interpr et this result as nela l/abnormal. [facility]2014-09-28 11:45:00 Test Item Value Reference Range Interpretation Comments Albumin Lvl (test code = Albumin Lvl) 3.7 3.5-5.0 [facility]stNwrgyflIXNQCAMRLS1274-25-73 11:45:00 Test Item Value Reference Range Interpretation Comments WBC (test code = WBC) 11.3 3.7-10.4 [facility]stChcjnyfZSMTHPWCAK7779-93-21 11:45:00 Test Item Value Reference Range Interpretation Comments RBC (test code = RBC) 4.43 4.20-5.40 [id number] 11:45:00 Test Item Value Reference Range Interpretation Comments MCV (test code = MCV) 88.3 80.0-98.0 [facility]stUpzlmbkBHICZBOJDB1867-06-01 11:45:00 Test Item Value Reference Range Interpretation Comments Hgb (test code = Hgb) 13.1 12.0-16.0 [facility]stYyvzfciITHKUXQPVL6159-09-33 11:45:00 Test Item Value Reference Range Interpretation Comments Hct (test code = Hct) 39.1 36.0-48.0 [facility]stSmtfyqrXHRSFMCQNL6885-33-78 11:45:00 Test Item Value Reference Range Interpretation Comments RDW (test code = RDW) 13.1 11.5-14.5 [facility]stEftdremJDNOZLNINZ6143-24-31 11:45:00 Test Item Value Reference Range Interpretation Comments MCH (test code = MCH) 29.7 pg 27.0-31.0 [facility]stUttrlyvSXKTQLAMDI9578-96-75 11:45:00 Test Item Value Reference Range Interpretation Comments Platelet (test code = Platelet) 319 133-450 [id number] 11:45:00 Test Item Value Reference Range Interpretation Comments MCHC (test code = MCHC) 33.6 32.0-36.0 [facility]stNpwzoxkRNAKESDLIY1609-82-79 11:45:00 Test Item Value Reference Range Interpretation Comments MPV (test code = MPV) 8.1 7.4-10.4 [facility]stGcyswvhCRURXOMPJD1601-65-99 11:45:00 Test Item Value Reference Range Interpretation Comments Monocytes (test code = Monocytes) 7.2 2.0-12.0 [facility]stQzcearcBONDMQWBDB4098-63-59 11:45:00 Test Item Value Reference Range Interpretation Comments Lymphocytes (test code = Lymphocytes) 14.9 20.0-40.0 [facility]stNvjzsryCMXFYJCOYF6834-43-56 11:45:00 Test Item Value Reference Range Interpretation Comments Segs (test code = Segs) 73.1 45.0-75.0 [facility]stPxvfsmbFYCWWFEBYX8224-46-09 11:45:00 Test Item Value Reference Range Interpretation Comments Monocytes # (test code 0.8 See_Comment [Aut omated message] The = Monocytes #) system which generated this result tra nsmitted reference range : <=0.8. The reference r kenneth was not used to int erpret this result as normal/abnormal . [facility][id number] 11:45:00 Test Item Value Reference Range Interpretation Comments Lymphocytes # (test code = Lymphocytes 1.7 1.0-5.5 #) [facility]stDczenuzWQUAMTGGXU0146-13-38 11:45:00 Test Item Value Reference Range Interpretation Comments Segs-Bands # (test code = Segs-Bands #) 8.3 1.5-8.1 [facility]stXryjpgpKYVSFJVZJC0208-61-66 11:45:00 Test Item Value Reference Range Interpretation Comments Basophils (test code = 0.9 See_Comment [Aut omated message] The Basophils) system which ge nerated this result tra nsmitted reference range : <=1.0. The reference r kenneth was not used to int erpret this result as normal/abnormal . [id number] 11:45:00 Test Item Value Reference Range Interpretation Comments Eosinophils (test code = 3.9 See_Comment [A utomated message] The Eosinophils) system which ge nerated this result tra nsmitted reference range : <=4.0. The reference r kenneth was not used to int erpret this result as normal/abnormal . [facility]stCzikkxnWBWFZWUVTT1645-84-91 11:45:00 Test Item Value Reference Range Interpretation Comments Basophils # (test code 0.1 See_Comment [Aut omated message] The = Basophils #) system which generated this result tra nsmitted reference range : <=0.2. The reference r kenneth was not used to int erpret this result as normal/abnormal . [facility]stTdblyqbGNROLQYLQR7848-50-05 11:45:00 Test Item Value Reference Range Interpretation Comments Eosinophils # (test code 0.4 See_Comment [A utomated message] The = Eosinophils #) system whic h generated this result tra nsmitted reference range : <=0.5. The reference r kenneth was not used to int erpret this result as normal/abnormal . [facility] AND [id number] 11:45:00 Test Item Value Reference Range Interpretation Comments UA Sq Epi (test code = UA Sq Epi) Rare /LPF [facility] AND [id number] 11:45:00 Test Item Value Reference Range Interpretation Comments UA WBC (test code = UA WBC) 6-10 /HPF [facility] AND [id number] 11:45:00 Test Item Value Reference Range Interpretation Comments UA Nitrite (test code Negative (03/20/14 6:45 = UA Nitrite) AM) [facility] AND [id number] 11:45:00 Test Item Value Reference Range Interpretation Comments UA Leuk Est (test code Trace *ABN*(03/20/14 = UA Leuk Est) 6:45 AM) [facility] AND [id number] 11:45:00 Test Item Value Reference Range Interpretation Comments UA Urobilinogen (test code = UA 0.2 0.1-1.0 Urobilinogen) [facility] AND [id number] 11:45:00 Test Item Value Reference Range Interpretation Comments UA Spec Grav (test code = UA Spec 1.025 1 Grav) [facility] AND [id number] 11:45:00 Test Item Value Reference Range Interpretation Comments UA pH (test code = UA pH) 6.0 1 5.0-8.0 [facility] AND [id number] 11:45:00 Test Item Value Reference Range Interpretation Comments UA Color (test code = Yellow *NA*(03/20/14 UA Color) 6:45 AM) [facility] AND [id number] 11:45:00 Test Item Value Reference Range Interpretation Comments UA Turbidity (test code = Clear (03/20/14 6:45 UA Turbidity) AM) [facility] AND [id number] 11:45:00 Test Item Value Reference Range Interpretation Comments UA RBC (test code = 3-5 /HPF See_Comment [Automa regi message] The UA RBC) system which ge nerated this result tra nsmitted reference range : <=2. The reference range was not used to interpr et this result as nela l/abnormal. [facility] AND [id number] 11:45:00 Test Item Value Reference Range Interpretation Comments UA Blood (test code = Trace *ABN*(03/20/14 UA Blood) 6:45 AM) [facility] AND [id number] 11:45:00 Test Item Value Reference Range Interpretation Comments UA Protein (test code Negative (03/20/14 6:45 = UA Protein) AM) [facility] AND [id number] 11:45:00 Test Item Value Reference Range Interpretation Comments UA Ketones (test code Negative *NA*(03/20/14 = UA Ketones) 6:45 AM) [facility] AND [id number] 11:45:00 Test Item Value Reference Range Interpretation Comments UA Bili (test code = Negative *NA*(03/20/14 UA Bili) 6:45 AM) [facility] AND [id number] 11:45:00 Test Item Value Reference Range Interpretation Comments UA Glucose (test code Negative (03/20/14 6:45 = UA Glucose) AM) [facility] AND [id number] 11:45:00 Test Item Value Reference Range Interpretation Comments UA Bacteria (test code = UA Few /HPF Bacteria) [facility]2014-09-28 11:45:00 Test Item Value Reference Range Interpretation Comments U Preg (test code = U Negative (03/20/14 6:45 Preg) AM) [facility]2014-09-09 22:25:49 Test Item Value Reference Range Interpretation Comments U Preg (test code = U Negative (03/01/14 5:25 Preg) PM) [facility] [id number] 22:25:49 Test Item Value Reference Range Interpretation Comments U Preg (test code = U Negative (03/01/14 5:25 Preg) PM) [facility]2014-09-09 22:25:49 Test Item Value Reference Range Interpretation Comments U Preg (test code = U Negative (03/01/14 5:25 Preg) PM) [facility] [id number] 22:25:49 Test Item Value Reference Range Interpretation Comments U Preg (test code = U Negative (03/01/14 5:25 Preg) PM) [facility]UR[facility] [id number] 22:25:49 Test Item Value Reference Range Interpretation Comments U Preg (test code = U Negative (03/01/14 5:25 Preg) PM) [facility]URINE [id number] 22:25:49 Test Item Value Reference Range Interpretation Comments U Preg (test code = U Negative (03/01/14 5:25 Preg) PM) [facility] [id number] 22:25:49 Test Item Value Reference Range Interpretation Comments U Preg (test code = U Negative (03/01/14 5:25 Preg) PM) [facility]VshgkwnOMJUBSRBI8228-12-77 02:00:37 Test Item Value Reference Range Interpretation Comments hCG Tot (test code = hCG Tot) [id number] [facility]evilleWbsqcvfFGQIWWLDB4880-55-98 02:00:37 Test Item Value Reference Range Interpretation Comments hCG Tot (test code = hCG Tot) [id number] [facility]evilleNvgyesbRMWYEYSQT9529-67-61 02:00:37 Test Item Value Reference Range Interpretation Comments hCG Tot (test code = hCG Tot) 23245 [facility]evilleAxqbsqsOSXUJAYAW0304-87-20 02:00:37 Test Item Value Reference Range Interpretation Comments hCG Tot (test code = hCG Tot) 43926 [facility]wptbzLCDZQKLSY0659-05-67 02:00:37 Test Item Value Reference Range Interpretation Comments hCG Tot (test code = hCG Tot) 90389 [facility]evilleAcfcjamGROIXHIAS4706-49-20 02:00:37 Test Item Value Reference Range Interpretation Comments hCG Tot (test code = hCG Tot) 70871 [facility]evilleGzvqzmlRXISPKLAL9895-46-93 02:00:37 Test Item Value Reference Range Interpretation Comments hCG Tot (test code = hCG Tot) 72706 [facility]evilleMqzfekpFHYSSARMV7420-55-60 02:00:00 Test Item Value Reference Range Interpretation Comments Lipase Lvl (test code = Lipase Lvl) 166 [address]93 N [facility]evilleRikhfvyBHQDBXFAE3121-49-23 02:00:00 Test Item Value Reference Range Interpretation Comments U Preg (test code = U Positive A Preg) *ABN*(10/31/2012 21:00:00) [facility]LoyszpaCMCDJTYVM1440-21-48 02:00:00 Test Item Value Reference Range Interpretation Comments AGAP (test code = AGAP) 14.7 10.0-20.0 N [facility] TexasUnugsyhLJIZUFQJM2511-50-75 02:00:00 Test Item Value Reference Range Interpretation Comments A/G Ratio (test code = A/G Ratio) 0.7 0.7-1.6 N [facility] TexasTwvoofpYIELTZUGY5535-97-28 02:00:00 Test Item Value Reference Range Interpretation Comments Globulin (test code = Globulin) 4.7 2.0-4.0 H [facility] TexasEgdtsveYCOMSJDTQ4252-26-36 02:00:00 Test Item Value Reference Range Interpretation Comments B/C Ratio (test code = B/C Ratio) 10 6-25 N [facility] TexasNxnrhcdSHWEZZLQU8064-78-64 02:00:00 Test Item Value Reference Range Interpretation Comments eGFR (test code = eGFR) 103 [facility] TexasZxyrelgJEHGZEZKR2395-85-62 02:00:00 Test Item Value Reference Range Interpretation Comments AST (test code = AST) 10 See_Comment N [Auto mated message] The system which ge nerated this result transmit regi reference range : <=37. The reference range was not used to interpr et this result as nela l/abnormal. [facility] TexasEtisfepAFRLQVYZL1263-89-41 02:00:00 Test Item Value Reference Range Interpretation Comments Alk Phos (test code = Alk Phos) 84 39-136 N [facility] TexasJtmvfnnMSKQQMAVE0181-50-28 02:00:00 Test Item Value Reference Range Interpretation Comments Bili Total (test code = Bili Total) 0.2 0.2-1.3 N [facility] TexasZkhyvnlLVBEPQBXU5093-33-47 02:00:00 Test Item Value Reference Range Interpretation Comments ALT (test code = ALT) 22 See_Comment N [Auto mated message] The system which ge nerated this result transmit regi reference range : <=65. The reference range was not used to interpr et this result as nela l/abnormal. [facility] TexasEhfnnlqFLCXRJPSA7705-18-73 02:00:00 Test Item Value Reference Range Interpretation Comments Total Protein (test code = Total 8.1 6.4-8.4 N Protein) [facility] TexasDuxxmjhOBXDBKLRR6016-36-79 02:00:00 Test Item Value Reference Range Interpretation Comments Albumin Lvl (test code = Albumin Lvl) 3.4 3.5-5.0 L [facility] TexasQmwtyixIYNKZOXVI0828-74-86 02:00:00 Test Item Value Reference Range Interpretation Comments Calcium Lvl (test code = Calcium Lvl) 8.4 8.5-10.5 L [facility] TexasJgmgltkPVNJGWKNU1660-97-27 02:00:00 Test Item Value Reference Range Interpretation Comments CO2 (test code = CO2) 24 24-32 N [facility] TexasHjjbodbJTPRWALKZ6763-32-58 02:00:00 Test Item Value Reference Range Interpretation Comments Chloride Lvl (test code = Chloride Lvl) 104 95-109 N [facility] TexasMipdnztJTMVXGDUC0096-60-68 02:00:00 Test Item Value Reference Range Interpretation Comments BUN (test code = BUN) 8 7-22 N [facility] TexasByxlsdvTULDQGVAL6281-46-16 02:00:00 Test Item Value Reference Range Interpretation Comments Creatinine Lvl (test code = Creatinine 0.8 0.5-1.4 N Lvl) [facility] TexasUirkndzWDCEMNKDT5546-37-55 02:00:00 Test Item Value Reference Range Interpretation Comments Glucose Lvl (test code = Glucose Lvl) 111 70-99 H [facility] TexasNrbbypvHUXDHHDRL4869-30-55 02:00:00 Test Item Value Reference Range Interpretation Comments Sodium Lvl (test code = Sodium Lvl) 139 135-145 N [facility] TexasRptugvtIUHWJYTJH9665-94-02 02:00:00 Test Item Value Reference Range Interpretation Comments Potassium Lvl (test code = Potassium 3.7 3.5-5.1 N Lvl) [facility]IqlqsrbNOGEOFIOVF0336-01-40 02:00:00 Test Item Value Reference Range Interpretation Comments Plt Morph (test code = Normal (10/31/2012 N Plt Morph) 21:00:00) [facility]XrpqbxpGIDUASJHVX2495-93-31 02:00:00 Test Item Value Reference Range Interpretation Comments Eosinophils (test code = 1.0 See_Comment N [A utomated message] The Eosinophils) system which ge nerated this result tra nsmitted reference range : <=4.0. The reference r kenneth was not used to int erpret this result as normal/abnormal . [facility]EevmbkoEFBCDCYJNX8304-48-89 02:00:00 Test Item Value Reference Range Interpretation Comments Atypical Lymphs (test code = Atypical 0.0 N Lymphs) [facility]stWudmsvbNIECSXPMAD8084-58-35 02:00:00 Test Item Value Reference Range Interpretation Comments Tear Cell (test code = Slight *ABN*(10/31/2012 A Tear Cell) 21:00:00) [facility]stOfywpepXQZVMDNKCE6240-27-02 02:00:00 Test Item Value Reference Range Interpretation Comments Monocytes (test code = Monocytes) 5.0 2.0-12.0 N [facility]XknhvrgGPMVSLTNDQ4664-97-75 02:00:00 Test Item Value Reference Range Interpretation Comments Tot Cell Ct (test code = Tot Cell Ct) 100 1 [facility]stXbrumheUYRLIJHRYX3719-59-45 02:00:00 Test Item Value Reference Range Interpretation Comments Lymphocytes (test code = Lymphocytes) 14.0 20.0-40.0 L [facility]stSzwvygxKYVIXRLASJ8568-36-20 02:00:00 Test Item Value Reference Range Interpretation Comments Segs-Bands # (test code = Segs-Bands #) 14.9 1.5-8.1 H [facility]stAckxrkiKTDPRGJWNW1224-29-91 02:00:00 Test Item Value Reference Range Interpretation Comments Lymphocytes # (test code = Lymphocytes 2.6 1.0-5.5 N #) [facility]stRarjnzzTHNRINXXON8457-98-59 02:00:00 Test Item Value Reference Range Interpretation Comments Neut Vac (test code = Slight *ABN*(10/31/2012 A Neut Vac) 21:00:00) [facility]stNppnxqbJZDDYAYNTN1622-79-60 02:00:00 Test Item Value Reference Range Interpretation Comments Bands (test code = 1.0 See_Comment N [Automat ed message] The Bands) system which ge nerated this result transmit regi reference range : <=11.0. The reference r kenneth was not used to interpr et this result as nela l/abnormal. [facility]stSfegsdtQPOUSBJSHG2606-01-72 02:00:00 Test Item Value Reference Range Interpretation Comments Eosinophils # (test code 0.2 See_Comment N [A utomated message] The = Eosinophils #) system whic h generated this result tra nsmitted reference range : <=0.5. The reference r kenneth was not used to int erpret this result as normal/abnormal . [facility]stTbqhnryMRRJPGWCEY7742-41-78 02:00:00 Test Item Value Reference Range Interpretation Comments Segs (test code = Segs) 79.0 45.0-75.0 H [facility]stBskqcraZOLAFOZQDH1233-97-28 02:00:00 Test Item Value Reference Range Interpretation Comments Monocytes # (test code 0.9 See_Comment H [Aut omated message] The = Monocytes #) system which generated this result tra nsmitted reference range : <=0.8. The reference r kenneth was not used to int erpret this result as normal/abnormal . [facility]stDsjovosNXIEYPOSRP6096-69-61 02:00:00 Test Item Value Reference Range Interpretation Comments RDW (test code = RDW) 13.0 11.5-14.5 N [facility]stMkkeymyILYKPDUDOX2635-73-64 02:00:00 Test Item Value Reference Range Interpretation Comments Platelet (test code = Platelet) 322 133-450 N [facility]stFqezfheVTPOYSCOHZ8783-23-76 02:00:00 Test Item Value Reference Range Interpretation Comments MPV (test code = MPV) 8.3 7.4-10.4 N [facility]stAlmbicvCDWHZRNCUC8179-21-53 02:00:00 Test Item Value Reference Range Interpretation Comments Hct (test code = Hct) 37.4 36.0-48.0 N [facility]stTvgbjysKAQWQLMZTE7151-93-76 02:00:00 Test Item Value Reference Range Interpretation Comments MCV (test code = MCV) 93.5 81.0-99.0 N [facility]stXxzlgxgCBZFTIRWXN3610-61-47 02:00:00 Test Item Value Reference Range Interpretation Comments MCH (test code = MCH) 31.0 pg 27.0-31.0 N [facility]stNwaqfjqFYMHRNONEV8471-21-48 02:00:00 Test Item Value Reference Range Interpretation Comments MCHC (test code = MCHC) 33.2 32.0-36.0 N [facility]stLovtogjQNGDRTYVPA7122-38-98 02:00:00 Test Item Value Reference Range Interpretation Comments WBC (test code = WBC) 18.6 3.7-10.4 H [facility]stEvnedszNDJMWCFUFE2037-09-50 02:00:00 Test Item Value Reference Range Interpretation Comments RBC (test code = RBC) 4.00 4.20-5.40 L [facility] AntonioOxjaefjWBAOZDOVKN0212-39-09 02:00:00 Test Item Value Reference Range Interpretation Comments Hgb (test code = Hgb) 12.4 12.0-16.0 N [facility]TxroqzwQYTTJENXHS0119-01-00 02:00:00 Test Item Value Reference Range Interpretation Comments UA Blood (test code = Trace *ABN*(10/31/2012 A UA Blood) 21:00:00) [facility]EwlsitvEZMKDOBVZM7430-59-67 02:00:00 Test Item Value Reference Range Interpretation Comments UA Bili (test code = Negative *NA*(10/31/2012 UA Bili) 21:00:00) [facility] HospitalWpqllwuAJSQXNPWVZ5182-57-06 02:00:00 Test Item Value Reference Range Interpretation Comments UA Spec Grav (test code = UA Spec 1.010 1 N Grav) [facility] HospitalJwxipizIDICERQGTA5975-29-46 02:00:00 Test Item Value Reference Range Interpretation Comments UA pH (test code = UA pH) 7.0 1 5.0-8.0 N [facility] NorthwestMfexucdQAIWATQWDZ0013-53-06 02:00:00 Test Item Value Reference Range Interpretation Comments UA Protein (test code Negative (10/31/2012 N = UA Protein) 21:00:00) [facility] HospitalEnsqycjLHCYHFZMKF6666-66-89 02:00:00 Test Item Value Reference Range Interpretation Comments UA Color (test code = Yellow *NA*(10/31/2012 UA Color) 21:00:00) [facility] HospitalNkmkcejXBYVMQZALK4242-80-24 02:00:00 Test Item Value Reference Range Interpretation Comments UA Turbidity (test code = Clear (10/31/2012 N UA Turbidity) 21:00:00) [facility] HospitalFfbkqgmLFTROOJTBQ5726-54-99 02:00:00 Test Item Value Reference Range Interpretation Comments UA Ketones (test code Negative = UA Ketones) *NA*(10/31/2012 21:00:00) [facility] HospitalNnvxlouOICZFOEWAF8887-91-96 02:00:00 Test Item Value Reference Range Interpretation Comments UA Glucose (test code Negative (10/31/2012 N = UA Glucose) 21:00:00) [facility] HospitalIzwvpavPHPEJHYPOX6319-19-79 02:00:00 Test Item Value Reference Range Interpretation Comments Micro? (test code = Performed (10/31/2012 N Micro?) 21:00:00) [facility] AntonioUzpbajdKPEHMWCDTW0005-25-06 02:00:00 Test Item Value Reference Range Interpretation Comments UA Sq Epi (test code = Few /LPF (10/31/2012 N UA Sq Epi) 21:00:00) [facility] NorthwestRszdiwiWJQRDUZRPQ9267-66-79 02:00:00 Test Item Value Reference Range Interpretation Comments UA Leuk Est (test Negative (10/31/2012 N code = UA Leuk Est) 21:00:00) [facility] AntonioTcpyfdqZIHEBCAJSV4781-30-46 02:00:00 Test Item Value Reference Range Interpretation Comments UA Nitrite (test code Negative (10/31/2012 N = UA Nitrite) 21:00:00) [facility] AntonioPvuewioPEDSEATPWX4523-45-89 02:00:00 Test Item Value Reference Range Interpretation Comments UA Urobilinogen (test code = UA 0.2 0.1-1.0 N Urobilinogen) [facility] NorthwestPvtbzmgBLKYGMIPTC7389-56-86 02:00:00 Test Item Value Reference Range Interpretation Comments UA Bacteria (test code = Few /HPF (10/31/2012 N UA Bacteria) 21:00:00) [facility] AntonioJplwgnmHBACIOKTNS6143-71-23 02:00:00 Test Item Value Reference Range Interpretation Comments UA RBC (test 3-5 /HPF See_Comment A [Automated mes jaim] code = UA RBC) *ABN*(10/31/2012 The syste m which 21:00:00) generated this result transmitted ref erence range: <=2. The reference range was not used to int erpret this result as normal/abnormal . [facility] AntonioFafatkcLCXAMFFJHK1281-73-67 02:00:00 Test Item Value Reference Range Interpretation Comments UA WBC (test code = UA 0-2 /HPF (10/31/2012 N WBC) 21:00:00) [facility] AntonioTfbdfioCFTNOCBCV2327-68-50 02:00:00 Test Item Value Reference Range Interpretation Comments Lipase Lvl (test code = Lipase Lvl) 166 73-393 N [facility] AntonioJsunjasCMMOQMVMC0227-18-00 02:00:00 Test Item Value Reference Range Interpretation Comments U Preg (test code = U Positive A Preg) *ABN*(10/31/2012 21:00:00) [facility]VctbyiwOJRECOJXD2951-66-63 02:00:00 Test Item Value Reference Range Interpretation Comments AGAP (test code = AGAP) 14.7 10.0-20.0 N [facility] TexasMwvcleqGGWTYWVVE6675-41-86 02:00:00 Test Item Value Reference Range Interpretation Comments A/G Ratio (test code = A/G Ratio) 0.7 0.7-1.6 N [facility] TexasLazyvunDJUAVBWVH2441-84-54 02:00:00 Test Item Value Reference Range Interpretation Comments Globulin (test code = Globulin) 4.7 2.0-4.0 H [facility] TexasKbrazjcCGSTDZJNM3208-69-13 02:00:00 Test Item Value Reference Range Interpretation Comments B/C Ratio (test code = B/C Ratio) 10 6-25 N [facility] TexasJksxkuzYIVBQTADK6840-86-02 02:00:00 Test Item Value Reference Range Interpretation Comments eGFR (test code = eGFR) 103 [facility] TexasTxoaovnQNHMEQZVQ5696-90-21 02:00:00 Test Item Value Reference Range Interpretation Comments AST (test code = AST) 10 See_Comment N [Auto mated message] The system which ge nerated this result transmit regi reference range : <=37. The reference range was not used to interpr et this result as nela l/abnormal. [facility] TexasQrgphzlTDTNXYQQE3837-82-39 02:00:00 Test Item Value Reference Range Interpretation Comments Alk Phos (test code = Alk Phos) 84 39-136 N [facility] TexasHsljsydWMPMSPANI9307-58-02 02:00:00 Test Item Value Reference Range Interpretation Comments Bili Total (test code = Bili Total) 0.2 0.2-1.3 N [facility] TexasWcowlmeMVVGYMZXY2392-44-29 02:00:00 Test Item Value Reference Range Interpretation Comments ALT (test code = ALT) 22 See_Comment N [Auto mated message] The system which ge nerated this result transmit regi reference range : <=65. The reference range was not used to interpr et this result as nela l/abnormal. [facility] TexasHeycdxuEROEXSWRR8799-17-89 02:00:00 Test Item Value Reference Range Interpretation Comments Total Protein (test code = Total 8.1 6.4-8.4 N Protein) [facility] TexasMhjnvumUBSYHBZQN8598-32-74 02:00:00 Test Item Value Reference Range Interpretation Comments Albumin Lvl (test code = Albumin Lvl) 3.4 3.5-5.0 L [facility] TexasPwgdedvENXGEZYTZ1086-40-91 02:00:00 Test Item Value Reference Range Interpretation Comments Calcium Lvl (test code = Calcium Lvl) 8.4 8.5-10.5 L [facility] TexasIbszmdnALUBDFJNZ0700-58-48 02:00:00 Test Item Value Reference Range Interpretation Comments CO2 (test code = CO2) 24 24-32 N [facility] TexasZtqnvpgBOKKBRUDO5448-61-06 02:00:00 Test Item Value Reference Range Interpretation Comments Chloride Lvl (test code = Chloride Lvl) 104 95-109 N [facility] TexasXypjptyCCFAUKQHY5998-50-76 02:00:00 Test Item Value Reference Range Interpretation Comments BUN (test code = BUN) 8 7-22 N [facility] TexasJevsywdAFXAWBGWS2669-27-71 02:00:00 Test Item Value Reference Range Interpretation Comments Creatinine Lvl (test code = Creatinine 0.8 0.5-1.4 N Lvl) [facility] TexasDbhjygkGSJXVFFDX6462-09-61 02:00:00 Test Item Value Reference Range Interpretation Comments Glucose Lvl (test code = Glucose Lvl) 111 70-99 H [facility] TexasGhnrlwiZKBXCOQRD9077-00-97 02:00:00 Test Item Value Reference Range Interpretation Comments Sodium Lvl (test code = Sodium Lvl) 139 135-145 N [facility] TexasQsyxfmcDFYMPNEYR3419-62-37 02:00:00 Test Item Value Reference Range Interpretation Comments Potassium Lvl (test code = Potassium 3.7 3.5-5.1 N Lvl) [facility]stJwshaprHAHERDLVRZ1850-23-52 02:00:00 Test Item Value Reference Range Interpretation Comments Plt Morph (test code = Normal (10/31/2012 N Plt Morph) 21:00:00) [facility]stLusprmrZRMHDQWDCZ7676-59-94 02:00:00 Test Item Value Reference Range Interpretation Comments Eosinophils (test code = 1.0 See_Comment N [A utomated message] The Eosinophils) system which ge nerated this result tra nsmitted reference range : <=4.0. The reference r kenneth was not used to int erpret this result as normal/abnormal . [facility]stThvdixhKSKZCHZCFK7889-41-54 02:00:00 Test Item Value Reference Range Interpretation Comments Atypical Lymphs (test code = Atypical 0.0 N Lymphs) [facility]stLgzezyiHZICDNGPHI0117-37-08 02:00:00 Test Item Value Reference Range Interpretation Comments Tear Cell (test code = Slight *ABN*(10/31/2012 A Tear Cell) 21:00:00) [facility]stFlckvlbHVKWMZBEYH0883-38-45 02:00:00 Test Item Value Reference Range Interpretation Comments Monocytes (test code = Monocytes) 5.0 2.0-12.0 N [facility]stRgqxmezVUHMRBJNLE2695-04-34 02:00:00 Test Item Value Reference Range Interpretation Comments Tot Cell Ct (test code = Tot Cell Ct) 100 1 [facility]stWfvjcbtEMOBOWQDNL8766-42-12 02:00:00 Test Item Value Reference Range Interpretation Comments Lymphocytes (test code = Lymphocytes) 14.0 20.0-40.0 L [facility]stHpvcopxOQAOPGPHBX0709-02-35 02:00:00 Test Item Value Reference Range Interpretation Comments Segs-Bands # (test code = Segs-Bands #) 14.9 1.5-8.1 H [facility]stRhwowtzGIDSHTKJNU4342-09-93 02:00:00 Test Item Value Reference Range Interpretation Comments Lymphocytes # (test code = Lymphocytes 2.6 1.0-5.5 N #) [facility]stDnsvqtlKGJJQZJWOC4485-72-62 02:00:00 Test Item Value Reference Range Interpretation Comments Neut Vac (test code = Slight *ABN*(10/31/2012 A Neut Vac) 21:00:00) [facility]stVjnxumwDKXESWWIMR5692-08-90 02:00:00 Test Item Value Reference Range Interpretation Comments Bands (test code = 1.0 See_Comment N [Automat ed message] The Bands) system which ge nerated this result transmit regi reference range : <=11.0. The reference r kenneth was not used to interpr et this result as nela l/abnormal. [facility]stNupdgtnXPSDOBYIPG1766-61-43 02:00:00 Test Item Value Reference Range Interpretation Comments Eosinophils # (test code 0.2 See_Comment N [A utomated message] The = Eosinophils #) system whic h generated this result tra nsmitted reference range : <=0.5. The reference r kenneth was not used to int erpret this result as normal/abnormal . [facility]stWfnfpcjDHDNZYLMDK5090-22-03 02:00:00 Test Item Value Reference Range Interpretation Comments Segs (test code = Segs) 79.0 45.0-75.0 H [facility]stCvnibvdEZQABITEYK8900-30-84 02:00:00 Test Item Value Reference Range Interpretation Comments Monocytes # (test code 0.9 See_Comment H [Aut omated message] The = Monocytes #) system which generated this result tra nsmitted reference range : <=0.8. The reference r kenneth was not used to int erpret this result as normal/abnormal . [facility]stGfazgtkGOMODNMAPL3877-32-72 02:00:00 Test Item Value Reference Range Interpretation Comments RDW (test code = RDW) 13.0 11.5-14.5 N [facility]stNjmkvcyRAAUMZFQXS8091-34-82 02:00:00 Test Item Value Reference Range Interpretation Comments Platelet (test code = Platelet) 322 133-450 N [facility]stDcohfchVIDPLGODKZ0349-06-76 02:00:00 Test Item Value Reference Range Interpretation Comments MPV (test code = MPV) 8.3 7.4-10.4 N [facility]stHewhcqdBOHUUQTBVG7409-68-59 02:00:00 Test Item Value Reference Range Interpretation Comments Hct (test code = Hct) 37.4 36.0-48.0 N [facility]stJbuoihbLLJPTYFDDK9932-92-09 02:00:00 Test Item Value Reference Range Interpretation Comments MCV (test code = MCV) 93.5 81.0-99.0 N [facility]stSqfbejnJVEJQIICRL8362-14-09 02:00:00 Test Item Value Reference Range Interpretation Comments MCH (test code = MCH) 31.0 pg 27.0-31.0 N [facility]stCyyqvrsAAXGPOHVAA1267-90-39 02:00:00 Test Item Value Reference Range Interpretation Comments MCHC (test code = MCHC) 33.2 32.0-36.0 N [facility]stTxtggquUYXFRDCANH1516-02-34 02:00:00 Test Item Value Reference Range Interpretation Comments WBC (test code = WBC) 18.6 3.7-10.4 H [facility]stHybljzoTIFWYLMSDJ9250-80-57 02:00:00 Test Item Value Reference Range Interpretation Comments RBC (test code = RBC) 4.00 4.20-5.40 L [facility]stXspyfnlZZQDXJMIBD1234-62-61 02:00:00 Test Item Value Reference Range Interpretation Comments Hgb (test code = Hgb) 12.4 12.0-16.0 N [facility] HospitalAeguumuVEYCTJKRPF2441-40-73 02:00:00 Test Item Value Reference Range Interpretation Comments UA Blood (test code = Trace *ABN*(10/31/2012 A UA Blood) 21:00:00) [facility] HospitalIvbwwqlAHRRDMPXAV1849-16-45 02:00:00 Test Item Value Reference Range Interpretation Comments UA Bili (test code = Negative *NA*(10/31/2012 UA Bili) 21:00:00) [facility] HospitalPfhfwqzYRWNUJTQYY5857-13-95 02:00:00 Test Item Value Reference Range Interpretation Comments UA Spec Grav (test code = UA Spec 1.010 1 N Grav) [facility] HospitalPgjwodlVZDSGWSRPM1317-45-57 02:00:00 Test Item Value Reference Range Interpretation Comments UA pH (test code = UA pH) 7.0 1 5.0-8.0 N [facility] HospitalCyxtlgqLCHIYVMOJI2326-46-67 02:00:00 Test Item Value Reference Range Interpretation Comments UA Protein (test code Negative (10/31/2012 N = UA Protein) 21:00:00) [facility] HospitalUpogzykLCOMKZBHPW7585-10-21 02:00:00 Test Item Value Reference Range Interpretation Comments UA Color (test code = Yellow *NA*(10/31/2012 UA Color) 21:00:00) [facility] HospitalNzfbsyxXJHOWHAIWR9915-97-10 02:00:00 Test Item Value Reference Range Interpretation Comments UA Turbidity (test code = Clear (10/31/2012 N UA Turbidity) 21:00:00) [facility] HospitalCawbovwZHRHXCZQYL3165-74-66 02:00:00 Test Item Value Reference Range Interpretation Comments UA Ketones (test code Negative = UA Ketones) *NA*(10/31/2012 21:00:00) [facility] HospitalVnpeorxBDVFRETGUV1547-22-45 02:00:00 Test Item Value Reference Range Interpretation Comments UA Glucose (test code Negative (10/31/2012 N = UA Glucose) 21:00:00) [facility] HospitalBqezrqaNQZIDXPYRB6968-43-28 02:00:00 Test Item Value Reference Range Interpretation Comments Micro? (test code = Performed (10/31/2012 N Micro?) 21:00:00) [facility] AntonioGuaablwQQOAMMFTGA5625-93-35 02:00:00 Test Item Value Reference Range Interpretation Comments UA Sq Epi (test code = Few /LPF (10/31/2012 N UA Sq Epi) 21:00:00) [facility] AntonioKiyrwccWRDPNZEGBB8850-85-42 02:00:00 Test Item Value Reference Range Interpretation Comments UA Leuk Est (test Negative (10/31/2012 N code = UA Leuk Est) 21:00:00) [facility] AntonioJvjdvzoOWPJESKVGB3145-35-04 02:00:00 Test Item Value Reference Range Interpretation Comments UA Nitrite (test code Negative (10/31/2012 N = UA Nitrite) 21:00:00) [facility] AntonioSfgmnhwOVJFYWJWLS8705-92-02 02:00:00 Test Item Value Reference Range Interpretation Comments UA Urobilinogen (test code = UA 0.2 0.1-1.0 N Urobilinogen) [facility]XwfxsydMBJCQNPAWU9554-31-41 02:00:00 Test Item Value Reference Range Interpretation Comments UA Bacteria (test code = Few /HPF (10/31/2012 N UA Bacteria) 21:00:00) [facility] AntonioOqovbjlOFIVTUVYSK3897-72-67 02:00:00 Test Item Value Reference Range Interpretation Comments UA RBC (test 3-5 /HPF See_Comment A [Automated mes jami] code = UA RBC) *ABN*(10/31/2012 The syste m which 21:00:00) generated this result transmitted ref erence range: <=2. The reference range was not used to int erpret this result as normal/abnormal . [facility]evilleDejekzjMSTSLYKLQY3983-07-68 02:00:00 Test Item Value Reference Range Interpretation Comments UA WBC (test code = UA 0-2 /HPF (10/31/2012 N WBC) 21:00:00) [facility] AntonioQhwuqqjJYLEGICFB7341-77-88 02:00:00 Test Item Value Reference Range Interpretation Comments Lipase Lvl (test code = Lipase Lvl) 166 73-393 N [facility] TexasPzbehupCPBTSCVNU3302-58-74 02:00:00 Test Item Value Reference Range Interpretation Comments U Preg (test code = U Positive A Preg) *ABN*(10/31/2012 21:00:00) [facility] TexasGfccvklJRNWJIXTC1563-21-89 02:00:00 Test Item Value Reference Range Interpretation Comments AGAP (test code = AGAP) 14.7 10.0-20.0 N [facility] TexasCyppttcSTIRVMUCU4818-80-81 02:00:00 Test Item Value Reference Range Interpretation Comments A/G Ratio (test code = A/G Ratio) 0.7 0.7-1.6 N [facility] TexasTcfygjoLOSVSKSCF9043-70-14 02:00:00 Test Item Value Reference Range Interpretation Comments Globulin (test code = Globulin) 4.7 2.0-4.0 H [facility] TexasLtpgyuzWJBQJNDUR4376-41-57 02:00:00 Test Item Value Reference Range Interpretation Comments B/C Ratio (test code = B/C Ratio) 10 6-25 N [facility] TexasWvzbmeaDRZFIDVRE4604-39-55 02:00:00 Test Item Value Reference Range Interpretation Comments eGFR (test code = eGFR) 103 [facility] TexasCfjbtiyRDXAZRJQS2203-35-88 02:00:00 Test Item Value Reference Range Interpretation Comments AST (test code = AST) 10 See_Comment N [Auto mated message] The system which ge nerated this result transmit regi reference range : <=37. The reference range was not used to interpr et this result as nela l/abnormal. [facility] TexasHigqiyeNLACOLEWZ0197-18-58 02:00:00 Test Item Value Reference Range Interpretation Comments Alk Phos (test code = Alk Phos) 84 39-136 N [facility] TexasEvixevrBVPOMHQFX8645-15-29 02:00:00 Test Item Value Reference Range Interpretation Comments Bili Total (test code = Bili Total) 0.2 0.2-1.3 N [facility] TexasNofyixqWXDKVEQXM0464-79-81 02:00:00 Test Item Value Reference Range Interpretation Comments ALT (test code = ALT) 22 See_Comment N [Auto mated message] The system which ge nerated this result transmit regi reference range : <=65. The reference range was not used to interpr et this result as nela l/abnormal. [facility] TexasBjjgakqNRTQUZLOT5182-85-54 02:00:00 Test Item Value Reference Range Interpretation Comments Total Protein (test code = Total 8.1 6.4-8.4 N Protein) [facility] TexasWefbohpZRDSXOTVS0920-79-60 02:00:00 Test Item Value Reference Range Interpretation Comments Albumin Lvl (test code = Albumin Lvl) 3.4 3.5-5.0 L [facility] TexasRcewhejOOCMXMAYP4285-03-21 02:00:00 Test Item Value Reference Range Interpretation Comments Calcium Lvl (test code = Calcium Lvl) 8.4 8.5-10.5 L [facility] [place]rwzvvwXUWUFGCZM3898-00-86 02:00:00 Test Item Value Reference Range Interpretation Comments CO2 (test code = CO2) 24 24-32 N [facility] TexasDnsgjktIRAOMSNKO0788-43-85 02:00:00 Test Item Value Reference Range Interpretation Comments Chloride Lvl (test code = Chloride Lvl) 104 95-109 N [facility] TexasDipxjgfKBPYFXFEZ7632-72-71 02:00:00 Test Item Value Reference Range Interpretation Comments BUN (test code = BUN) 8 7-22 N [facility] TexasYszsezuMIETBSCMZ7778-58-91 02:00:00 Test Item Value Reference Range Interpretation Comments Creatinine Lvl (test code = Creatinine 0.8 0.5-1.4 N Lvl) [facility] TexasMwijkhiTBYLDNKRX6936-66-79 02:00:00 Test Item Value Reference Range Interpretation Comments Glucose Lvl (test code = Glucose Lvl) 111 70-99 H [facility] TexasHwrtmunDRPBLFJZE2834-82-02 02:00:00 Test Item Value Reference Range Interpretation Comments Sodium Lvl (test code = Sodium Lvl) 139 135-145 N [facility] TexasPgkwirwVVYVTVTAD1835-44-09 02:00:00 Test Item Value Reference Range Interpretation Comments Potassium Lvl (test code = Potassium 3.7 3.5-5.1 N Lvl) [facility]stSeqoqasDIWHUYIHVH3764-75-09 02:00:00 Test Item Value Reference Range Interpretation Comments Plt Morph (test code = Normal (10/31/2012 N Plt Morph) 21:00:00) [facility]stQssjtuhAGOAPLMIMM7650-53-84 02:00:00 Test Item Value Reference Range Interpretation Comments Eosinophils (test code = 1.0 See_Comment N [A utomated message] The Eosinophils) system which ge nerated this result tra nsmitted reference range : <=4.0. The reference r kenneth was not used to int erpret this result as normal/abnormal . [facility]stPwwkziyOXVFIAILEW2205-35-46 02:00:00 Test Item Value Reference Range Interpretation Comments Atypical Lymphs (test code = Atypical 0.0 N Lymphs) [facility]stVssaqkyKYYZHACTUJ7692-91-98 02:00:00 Test Item Value Reference Range Interpretation Comments Tear Cell (test code = Slight *ABN*(10/31/2012 A Tear Cell) 21:00:00) [facility]stCdbmexfCPUBHGWFCA9686-95-74 02:00:00 Test Item Value Reference Range Interpretation Comments Monocytes (test code = Monocytes) 5.0 2.0-12.0 N [facility]stPrfldibBKLMGAWXOK1281-23-47 02:00:00 Test Item Value Reference Range Interpretation Comments Tot Cell Ct (test code = Tot Cell Ct) 100 1 [facility]stGkufliaPWXETMGFJE4105-48-85 02:00:00 Test Item Value Reference Range Interpretation Comments Lymphocytes (test code = Lymphocytes) 14.0 20.0-40.0 L [facility]stNgqzcptNKWKYGMJJX5607-75-72 02:00:00 Test Item Value Reference Range Interpretation Comments Segs-Bands # (test code = Segs-Bands #) 14.9 1.5-8.1 H [facility]stVrsyhazSXHEJMIFCY7197-83-91 02:00:00 Test Item Value Reference Range Interpretation Comments Lymphocytes # (test code = Lymphocytes 2.6 1.0-5.5 N #) [facility]stXbqiefaIQCOTIFDWA3704-11-64 02:00:00 Test Item Value Reference Range Interpretation Comments Neut Vac (test code = Slight *ABN*(10/31/2012 A Neut Vac) 21:00:00) [facility]stWdhnenwHQQFQAAITV2136-77-38 02:00:00 Test Item Value Reference Range Interpretation Comments Bands (test code = 1.0 See_Comment N [Automat ed message] The Bands) system which ge nerated this result transmit regi reference range : <=11.0. The reference r kenneth was not used to interpr et this result as nela l/abnormal. [facility]stSvoeaojEAKXNQSMMV3074-70-55 02:00:00 Test Item Value Reference Range Interpretation Comments Eosinophils # (test code 0.2 See_Comment N [A utomated message] The = Eosinophils #) system whic h generated this result tra nsmitted reference range : <=0.5. The reference r kenneth was not used to int erpret this result as normal/abnormal . [facility]stXjgptzxMSLYNZDLUB1797-72-10 02:00:00 Test Item Value Reference Range Interpretation Comments Segs (test code = Segs) 79.0 45.0-75.0 H [facility]stPexvlmjWTHKSBOMLF4348-38-60 02:00:00 Test Item Value Reference Range Interpretation Comments Monocytes # (test code 0.9 See_Comment H [Aut omated message] The = Monocytes #) system which generated this result tra nsmitted reference range : <=0.8. The reference r kenneth was not used to int erpret this result as normal/abnormal . [facility]stIwpimmmNWOWYKBERP1707-37-77 02:00:00 Test Item Value Reference Range Interpretation Comments RDW (test code = RDW) 13.0 11.5-14.5 N [facility]stQppbossOHVVKOCZWW5271-36-53 02:00:00 Test Item Value Reference Range Interpretation Comments Platelet (test code = Platelet) 322 133-450 N [facility]stSlvkpjpLPOQDFXRAU4729-25-32 02:00:00 Test Item Value Reference Range Interpretation Comments MPV (test code = MPV) 8.3 7.4-10.4 N [facility]stDfipsisBBSSXHKPLU2762-89-13 02:00:00 Test Item Value Reference Range Interpretation Comments Hct (test code = Hct) 37.4 36.0-48.0 N [facility]stChzprmmGUYIEYFOBW3424-75-65 02:00:00 Test Item Value Reference Range Interpretation Comments MCV (test code = MCV) 93.5 81.0-99.0 N [facility]stBqhazbwNDHAONVOHP3324-27-79 02:00:00 Test Item Value Reference Range Interpretation Comments MCH (test code = MCH) 31.0 pg 27.0-31.0 N [facility]stYmxezjxWVJKEFYYWL6329-01-13 02:00:00 Test Item Value Reference Range Interpretation Comments MCHC (test code = MCHC) 33.2 32.0-36.0 N [facility]stKjruxptPPKRNWMSCT9502-34-97 02:00:00 Test Item Value Reference Range Interpretation Comments WBC (test code = WBC) 18.6 3.7-10.4 H [facility]stYilyvmmSXTBLDIRES3039-08-28 02:00:00 Test Item Value Reference Range Interpretation Comments RBC (test code = RBC) 4.00 4.20-5.40 L [facility]stGriocsvNQOTXVMSBU8886-26-55 02:00:00 Test Item Value Reference Range Interpretation Comments Hgb (test code = Hgb) 12.4 12.0-16.0 N [facility]SptszfcWRIEKOZEOO0632-04-40 02:00:00 Test Item Value Reference Range Interpretation Comments UA Blood (test code = Trace *ABN*(10/31/2012 A UA Blood) 21:00:00) [facility]IlscfwkZOUAFFJBMQ3955-96-50 02:00:00 Test Item Value Reference Range Interpretation Comments UA Bili (test code = Negative *NA*(10/31/2012 UA Bili) 21:00:00) [facility] HospitalAgxmzepQEKNOOPIMJ2579-92-98 02:00:00 Test Item Value Reference Range Interpretation Comments UA Spec Grav (test code = UA Spec 1.010 1 N Grav) [facility] HospitalVfipeqiDCRWJOECQW5117-44-26 02:00:00 Test Item Value Reference Range Interpretation Comments UA pH (test code = UA pH) 7.0 1 5.0-8.0 N [facility] HospitalMqoxjrgIBHLOBRPNY6123-53-52 02:00:00 Test Item Value Reference Range Interpretation Comments UA Protein (test code Negative (10/31/2012 N = UA Protein) 21:00:00) [facility] HospitalBkttgfpOABQMXNABH5738-59-03 02:00:00 Test Item Value Reference Range Interpretation Comments UA Color (test code = Yellow *NA*(10/31/2012 UA Color) 21:00:00) [facility] HospitalVwmklhxMLBAOOLFMN9610-35-45 02:00:00 Test Item Value Reference Range Interpretation Comments UA Turbidity (test code = Clear (10/31/2012 N UA Turbidity) 21:00:00) [facility] HospitalCjhzudfYPRRIGQDDB3512-67-33 02:00:00 Test Item Value Reference Range Interpretation Comments UA Ketones (test code Negative = UA Ketones) *NA*(10/31/2012 21:00:00) [facility] HospitalVvccuurXNBPGYSFIT0111-00-72 02:00:00 Test Item Value Reference Range Interpretation Comments UA Glucose (test code Negative (10/31/2012 N = UA Glucose) 21:00:00) [facility] HospitalKehvtdjYBXYINARCO2252-91-91 02:00:00 Test Item Value Reference Range Interpretation Comments Micro? (test code = Performed (10/31/2012 N Micro?) 21:00:00) [facility] HospitalDkjfooaSVZDLTQSLK3410-03-63 02:00:00 Test Item Value Reference Range Interpretation Comments UA Sq Epi (test code = Few /LPF (10/31/2012 N UA Sq Epi) 21:00:00) [facility] AntonioAvivogwCALFSWWKGW0155-57-60 02:00:00 Test Item Value Reference Range Interpretation Comments UA Leuk Est (test Negative (10/31/2012 N code = UA Leuk Est) 21:00:00) [facility] AntonioIdczpvnNVNZLIGCQZ8911-48-30 02:00:00 Test Item Value Reference Range Interpretation Comments UA Nitrite (test code Negative (10/31/2012 N = UA Nitrite) 21:00:00) [facility] AntonioHaabfquPXREDSENMJ7747-58-11 02:00:00 Test Item Value Reference Range Interpretation Comments UA Urobilinogen (test code = UA 0.2 0.1-1.0 N Urobilinogen) [facility] NorthwestQusoxfzRCCYFLKEOG4584-60-65 02:00:00 Test Item Value Reference Range Interpretation Comments UA Bacteria (test code = Few /HPF (10/31/2012 N UA Bacteria) 21:00:00) [facility] AntonioBqrgjswYANBKRRHQG5661-39-49 02:00:00 Test Item Value Reference Range Interpretation Comments UA RBC (test 3-5 /HPF See_Comment A [Automated mes jami] code = UA RBC) *ABN*(10/31/2012 The syste m which 21:00:00) generated this result transmitted ref erence range: <=2. The reference range was not used to int erpret this result as normal/abnormal . [facility] AntonioIhprvnpAJEPOBFCBZ3506-86-69 02:00:00 Test Item Value Reference Range Interpretation Comments UA WBC (test code = UA 0-2 /HPF (10/31/2012 N WBC) 21:00:00) [facility] AntonioWnywcsbUVCESKMLH9929-03-53 02:00:00 Test Item Value Reference Range Interpretation Comments Lipase Lvl (test code = Lipase Lvl) 166 73-393 N [facility]QcwoafmAZICGGXHK9251-61-69 02:00:00 Test Item Value Reference Range Interpretation Comments U Preg (test code = U Positive A Preg) *ABN*(10/31/2012 21:00:00) [facility] [place]JpfsjxkTFEMKCMMF3938-79-74 02:00:00 Test Item Value Reference Range Interpretation Comments AGAP (test code = AGAP) 14.7 10.0-20.0 N [facility] TexasBgzipiqCNTXGVWJP7478-00-83 02:00:00 Test Item Value Reference Range Interpretation Comments A/G Ratio (test code = A/G Ratio) 0.7 0.7-1.6 N [facility] [place]IypdqmnFGCGPPHUD1261-18-65 02:00:00 Test Item Value Reference Range Interpretation Comments Globulin (test code = Globulin) 4.7 2.0-4.0 H [facility] TexasSmhghvoLODWJFXGO3769-62-90 02:00:00 Test Item Value Reference Range Interpretation Comments B/C Ratio (test code = B/C Ratio) 10 6-25 N [facility] TexasDxpuzorRGRGDUNVN5419-15-68 02:00:00 Test Item Value Reference Range Interpretation Comments eGFR (test code = eGFR) 103 [facility] TexasHhcmrwfONBMXYCLK7736-88-92 02:00:00 Test Item Value Reference Range Interpretation Comments AST (test code = AST) 10 See_Comment N [Auto mated message] The system which ge nerated this result transmit regi reference range : <=37. The reference range was not used to interpr et this result as nela l/abnormal. [facility] TexasQtjihhfAQSPPHCHR7018-49-11 02:00:00 Test Item Value Reference Range Interpretation Comments Alk Phos (test code = Alk Phos) 84 39-136 N [facility] TexasKiyooorKZNQOZFAH6279-83-16 02:00:00 Test Item Value Reference Range Interpretation Comments Bili Total (test code = Bili Total) 0.2 0.2-1.3 N [facility] TexasNflqshwXJKWPRWRM4152-84-83 02:00:00 Test Item Value Reference Range Interpretation Comments ALT (test code = ALT) 22 See_Comment N [Auto mated message] The system which ge nerated this result transmit regi reference range : <=65. The reference range was not used to interpr et this result as nela l/abnormal. [facility] TexasHhbnvxbFXMNOJCCW0428-59-91 02:00:00 Test Item Value Reference Range Interpretation Comments Total Protein (test code = Total 8.1 6.4-8.4 N Protein) [facility] TexasSvwfjzfCFOHAZQXU8831-77-29 02:00:00 Test Item Value Reference Range Interpretation Comments Albumin Lvl (test code = Albumin Lvl) 3.4 3.5-5.0 L [facility] TexasEcotvnyBQHMFFBRH6735-29-21 02:00:00 Test Item Value Reference Range Interpretation Comments Calcium Lvl (test code = Calcium Lvl) 8.4 8.5-10.5 L [facility] TexasCwuzereWHIZSEEKF5899-02-84 02:00:00 Test Item Value Reference Range Interpretation Comments CO2 (test code = CO2) 24 24-32 N [facility] TexasDrkraurELTUYJIBC9021-11-56 02:00:00 Test Item Value Reference Range Interpretation Comments Chloride Lvl (test code = Chloride Lvl) 104 95-109 N [facility] TexasLdzrxptPGVVYSGZO5348-11-36 02:00:00 Test Item Value Reference Range Interpretation Comments BUN (test code = BUN) 8 7-22 N [facility] TexasSpsmxowVUDIILPIE2478-23-05 02:00:00 Test Item Value Reference Range Interpretation Comments Creatinine Lvl (test code = Creatinine 0.8 0.5-1.4 N Lvl) [facility] TexasDafvysaSZGYJRFBC4684-41-74 02:00:00 Test Item Value Reference Range Interpretation Comments Glucose Lvl (test code = Glucose Lvl) 111 70-99 H [facility] TexasTiwinvnNRLAGPTPQ2004-97-87 02:00:00 Test Item Value Reference Range Interpretation Comments Sodium Lvl (test code = Sodium Lvl) 139 135-145 N [facility] TexasKqqjrcdKPHAKHYSN7558-42-21 02:00:00 Test Item Value Reference Range Interpretation Comments Potassium Lvl (test code = Potassium 3.7 3.5-5.1 N Lvl) [facility]stLajxwovWLNAZDTGDA8781-70-46 02:00:00 Test Item Value Reference Range Interpretation Comments Plt Morph (test code = Normal (10/31/2012 N Plt Morph) 21:00:00) [facility]stIhljqlaKMCYDIKVHP5210-78-52 02:00:00 Test Item Value Reference Range Interpretation Comments Eosinophils (test code = 1.0 See_Comment N [A utomated message] The Eosinophils) system which ge nerated this result tra nsmitted reference range : <=4.0. The reference r kenneth was not used to int erpret this result as normal/abnormal . [facility]stKglxgybSVWMITNIPZ6917-68-26 02:00:00 Test Item Value Reference Range Interpretation Comments Atypical Lymphs (test code = Atypical 0.0 N Lymphs) [facility]stDvnmuoeEPFURAATTR2491-12-59 02:00:00 Test Item Value Reference Range Interpretation Comments Tear Cell (test code = Slight *ABN*(10/31/2012 A Tear Cell) 21:00:00) [facility]stHcubrvhSCPLNVLZRK6073-60-49 02:00:00 Test Item Value Reference Range Interpretation Comments Monocytes (test code = Monocytes) 5.0 2.0-12.0 N [facility]stBwbytuqSWNSKSWOUO8030-09-09 02:00:00 Test Item Value Reference Range Interpretation Comments Tot Cell Ct (test code = Tot Cell Ct) 100 1 [facility]stOcgxnfqYJRRWJVVPL4385-57-98 02:00:00 Test Item Value Reference Range Interpretation Comments Lymphocytes (test code = Lymphocytes) 14.0 20.0-40.0 L [facility]stNzxcsevGFNHWRVLVS4770-74-40 02:00:00 Test Item Value Reference Range Interpretation Comments Segs-Bands # (test code = Segs-Bands #) 14.9 1.5-8.1 H [facility]stAbfjtulCMIMVOJRGK1952-04-38 02:00:00 Test Item Value Reference Range Interpretation Comments Lymphocytes # (test code = Lymphocytes 2.6 1.0-5.5 N #) [facility]stAhhphnrHSUZRYQNAF2592-64-00 02:00:00 Test Item Value Reference Range Interpretation Comments Neut Vac (test code = Slight *ABN*(10/31/2012 A Neut Vac) 21:00:00) [facility]stXzhotoqONYEAQFFHO1892-08-42 02:00:00 Test Item Value Reference Range Interpretation Comments Bands (test code = 1.0 See_Comment N [Automat ed message] The Bands) system which ge nerated this result transmit regi reference range : <=11.0. The reference r kenneth was not used to interpr et this result as nela l/abnormal. [facility]stKyrdrxjLVAESPUQOV8509-62-70 02:00:00 Test Item Value Reference Range Interpretation Comments Eosinophils # (test code 0.2 See_Comment N [A utomated message] The = Eosinophils #) system whic h generated this result tra nsmitted reference range : <=0.5. The reference r kenneth was not used to int erpret this result as normal/abnormal . [facility]stRetmnwcSORHMNUZND3295-52-85 02:00:00 Test Item Value Reference Range Interpretation Comments Segs (test code = Segs) 79.0 45.0-75.0 H [facility]stKxptsbgNHBLGSHGSX4262-39-84 02:00:00 Test Item Value Reference Range Interpretation Comments Monocytes # (test code 0.9 See_Comment H [Aut omated message] The = Monocytes #) system which generated this result tra nsmitted reference range : <=0.8. The reference r kenneth was not used to int erpret this result as normal/abnormal . [facility]stZtbdmwyYRVTHLDXQM6750-54-58 02:00:00 Test Item Value Reference Range Interpretation Comments RDW (test code = RDW) 13.0 11.5-14.5 N [facility]stKowmpeeUOSOSJKLQM5545-68-74 02:00:00 Test Item Value Reference Range Interpretation Comments Platelet (test code = Platelet) 322 133-450 N [facility]stTklypkcLYRBHAEEJX0378-44-61 02:00:00 Test Item Value Reference Range Interpretation Comments MPV (test code = MPV) 8.3 7.4-10.4 N [facility]stDxgdrarGBGFWMFGMF7085-61-36 02:00:00 Test Item Value Reference Range Interpretation Comments Hct (test code = Hct) 37.4 36.0-48.0 N [facility]stGcyhmjzYQXRUHQJNJ7867-36-64 02:00:00 Test Item Value Reference Range Interpretation Comments MCV (test code = MCV) 93.5 81.0-99.0 N [facility]stPvhrygnWTISWIFMIG7866-52-19 02:00:00 Test Item Value Reference Range Interpretation Comments MCH (test code = MCH) 31.0 pg 27.0-31.0 N [facility]stTvldgacGDSAKPQMGC7091-20-76 02:00:00 Test Item Value Reference Range Interpretation Comments MCHC (test code = MCHC) 33.2 32.0-36.0 N [facility]stNckibenZFCNNSKOPC8907-00-00 02:00:00 Test Item Value Reference Range Interpretation Comments WBC (test code = WBC) 18.6 3.7-10.4 H [facility]stNxrwnxcKHFKLAOJFY2679-76-70 02:00:00 Test Item Value Reference Range Interpretation Comments RBC (test code = RBC) 4.00 4.20-5.40 L [facility]stBcpmvsoRIGHGXCSQF2312-53-35 02:00:00 Test Item Value Reference Range Interpretation Comments Hgb (test code = Hgb) 12.4 12.0-16.0 N [facility] HospitalDuqlavvEYZFJFHXAZ5213-77-60 02:00:00 Test Item Value Reference Range Interpretation Comments UA Blood (test code = Trace *ABN*(10/31/2012 A UA Blood) 21:00:00) [facility] HospitalOvbodwrVKFKKJWNAG7688-18-03 02:00:00 Test Item Value Reference Range Interpretation Comments UA Bili (test code = Negative *NA*(10/31/2012 UA Bili) 21:00:00) [facility] HospitalZzbwgzmDDGVFNYADG2601-40-40 02:00:00 Test Item Value Reference Range Interpretation Comments UA Spec Grav (test code = UA Spec 1.010 1 N Grav) [facility] HospitalBxatmpeBDEKMSYTEZ1545-17-93 02:00:00 Test Item Value Reference Range Interpretation Comments UA pH (test code = UA pH) 7.0 1 5.0-8.0 N [facility] HospitalRzwidahQQLZSZEXHI3686-36-56 02:00:00 Test Item Value Reference Range Interpretation Comments UA Protein (test code Negative (10/31/2012 N = UA Protein) 21:00:00) [facility] HospitalUtjolgxLLUTRQHNUC9507-83-04 02:00:00 Test Item Value Reference Range Interpretation Comments UA Color (test code = Yellow *NA*(10/31/2012 UA Color) 21:00:00) [facility] HospitalFfvomuyUVSZXTHYJY2390-78-83 02:00:00 Test Item Value Reference Range Interpretation Comments UA Turbidity (test code = Clear (10/31/2012 N UA Turbidity) 21:00:00) [facility] HospitalYkhajniKXXQYDEOFB8636-13-69 02:00:00 Test Item Value Reference Range Interpretation Comments UA Ketones (test code Negative = UA Ketones) *NA*(10/31/2012 21:00:00) [facility] HospitalQwmqjwuBQVOZZRZRP9044-75-14 02:00:00 Test Item Value Reference Range Interpretation Comments UA Glucose (test code Negative (10/31/2012 N = UA Glucose) 21:00:00) [facility] HospitalTqueizwMONSPKILJJ0959-02-54 02:00:00 Test Item Value Reference Range Interpretation Comments Micro? (test code = Performed (10/31/2012 N Micro?) 21:00:00) [facility] HospitalFdctusfZUXMVCRNSO7796-34-42 02:00:00 Test Item Value Reference Range Interpretation Comments UA Sq Epi (test code = Few /LPF (10/31/2012 N UA Sq Epi) 21:00:00) [facility] AntonioEuxavdpYQLDHIVFVV9502-67-85 02:00:00 Test Item Value Reference Range Interpretation Comments UA Leuk Est (test Negative (10/31/2012 N code = UA Leuk Est) 21:00:00) [facility]RhuihgkDSYZMAUPNR8192-67-48 02:00:00 Test Item Value Reference Range Interpretation Comments UA Nitrite (test code Negative (10/31/2012 N = UA Nitrite) 21:00:00) [facility] AntonioIjhmubpYIVUXRPUMN7461-68-13 02:00:00 Test Item Value Reference Range Interpretation Comments UA Urobilinogen (test code = UA 0.2 0.1-1.0 N Urobilinogen) [facility] NorthwestXhxvnwlHRXZHNMBPO6568-04-52 02:00:00 Test Item Value Reference Range Interpretation Comments UA Bacteria (test code = Few /HPF (10/31/2012 N UA Bacteria) 21:00:00) [facility] NorthwestOagbqgxYUBVXFXLNJ8348-40-64 02:00:00 Test Item Value Reference Range Interpretation Comments UA RBC (test 3-5 /HPF See_Comment A [Automated mes jami] code = UA RBC) *ABN*(10/31/2012 The syste m which 21:00:00) generated this result transmitted ref erence range: <=2. The reference range was not used to int erpret this result as normal/abnormal . [facility] AntonioZtihoeqHZXZPMUTFT0299-57-60 02:00:00 Test Item Value Reference Range Interpretation Comments UA WBC (test code = UA 0-2 /HPF (10/31/2012 N WBC) 21:00:00) [facility] AntonioWunwubvRIMZXVLPT3926-86-21 02:00:00 Test Item Value Reference Range Interpretation Comments Lipase Lvl (test code = Lipase Lvl) 166 73-393 N [facility] TexasWhwhgklTJNNSYZYK8369-87-86 02:00:00 Test Item Value Reference Range Interpretation Comments U Preg (test code = U Positive A Preg) *ABN*(10/31/2012 21:00:00) [facility] TexasFbnlvzaPRUUOSTNO6733-71-40 02:00:00 Test Item Value Reference Range Interpretation Comments AGAP (test code = AGAP) 14.7 10.0-20.0 N [facility] TexasIhipeuxTCMCQZXHO9473-51-69 02:00:00 Test Item Value Reference Range Interpretation Comments A/G Ratio (test code = A/G Ratio) 0.7 0.7-1.6 N [facility] TexasWddcjpjLQENAEZMV2156-99-39 02:00:00 Test Item Value Reference Range Interpretation Comments Globulin (test code = Globulin) 4.7 2.0-4.0 H [facility] TexasDuyxdgmPMNOQTQDE8261-11-93 02:00:00 Test Item Value Reference Range Interpretation Comments B/C Ratio (test code = B/C Ratio) 10 6-25 N [facility] TexasGwxvkxpDCAJNMDYP9520-65-22 02:00:00 Test Item Value Reference Range Interpretation Comments eGFR (test code = eGFR) 103 [facility] TexasGysguhmQVMVCJFPV2594-62-69 02:00:00 Test Item Value Reference Range Interpretation Comments AST (test code = AST) 10 See_Comment N [Auto mated message] The system which ge nerated this result transmit regi reference range : <=37. The reference range was not used to interpr et this result as nela l/abnormal. [facility] TexasBfcrujyOMIZOVNCI6657-81-84 02:00:00 Test Item Value Reference Range Interpretation Comments Alk Phos (test code = Alk Phos) 84 39-136 N [facility] TexasUksovudFURGEMQUM1493-91-83 02:00:00 Test Item Value Reference Range Interpretation Comments Bili Total (test code = Bili Total) 0.2 0.2-1.3 N [facility] TexasNgqmnkrMSZJAXAIR1425-92-13 02:00:00 Test Item Value Reference Range Interpretation Comments ALT (test code = ALT) 22 See_Comment N [Auto mated message] The system which ge nerated this result transmit regi reference range : <=65. The reference range was not used to interpr et this result as nela l/abnormal. [facility] TexasJzfvaezLPXZJCWFY9626-50-95 02:00:00 Test Item Value Reference Range Interpretation Comments Total Protein (test code = Total 8.1 6.4-8.4 N Protein) [facility] TexasFhdwogvOQSNHBKCG4176-43-77 02:00:00 Test Item Value Reference Range Interpretation Comments Albumin Lvl (test code = Albumin Lvl) 3.4 3.5-5.0 L [facility] TexasJtnajquGLDASXIRX4901-42-03 02:00:00 Test Item Value Reference Range Interpretation Comments Calcium Lvl (test code = Calcium Lvl) 8.4 8.5-10.5 L [facility] TexasJjcapxjVKJEMIEBJ2185-40-72 02:00:00 Test Item Value Reference Range Interpretation Comments CO2 (test code = CO2) 24 24-32 N [facility] TexasJiqjohwDHMINIZHF5964-62-32 02:00:00 Test Item Value Reference Range Interpretation Comments Chloride Lvl (test code = Chloride Lvl) 104 95-109 N [facility] TexasCtdpfrnUYPKPIYEG9702-29-29 02:00:00 Test Item Value Reference Range Interpretation Comments BUN (test code = BUN) 8 7-22 N [facility] TexasFdvhbmdDWJWSMKJP7250-09-95 02:00:00 Test Item Value Reference Range Interpretation Comments Creatinine Lvl (test code = Creatinine 0.8 0.5-1.4 N Lvl) [facility] TexasNelsonnWGSTNLUDO5868-82-21 02:00:00 Test Item Value Reference Range Interpretation Comments Glucose Lvl (test code = Glucose Lvl) 111 70-99 H [facility] TexasEpgarsnWNMDWNMTN8550-06-76 02:00:00 Test Item Value Reference Range Interpretation Comments Sodium Lvl (test code = Sodium Lvl) 139 135-145 N [facility] TexasQoznlheNSRVJMBPS5172-56-36 02:00:00 Test Item Value Reference Range Interpretation Comments Potassium Lvl (test code = Potassium 3.7 3.5-5.1 N Lvl) [facility]stAlvfjhlDQOKJNAWFY2816-82-57 02:00:00 Test Item Value Reference Range Interpretation Comments Plt Morph (test code = Normal (10/31/2012 N Plt Morph) 21:00:00) [facility]stQqqikxuOKPSLNSEMF3333-01-00 02:00:00 Test Item Value Reference Range Interpretation Comments Eosinophils (test code = 1.0 See_Comment N [A utomated message] The Eosinophils) system which ge nerated this result tra nsmitted reference range : <=4.0. The reference r kenneth was not used to int erpret this result as normal/abnormal . [facility]stQaetokyDIYZOUJTZN9178-51-14 02:00:00 Test Item Value Reference Range Interpretation Comments Atypical Lymphs (test code = Atypical 0.0 N Lymphs) [facility]stRbhbulkEOBIFSMAOC3852-85-85 02:00:00 Test Item Value Reference Range Interpretation Comments Tear Cell (test code = Slight *ABN*(10/31/2012 A Tear Cell) 21:00:00) [facility]stFzbcnltRYCQRMNYYN6637-48-06 02:00:00 Test Item Value Reference Range Interpretation Comments Monocytes (test code = Monocytes) 5.0 2.0-12.0 N [facility]stTentuakOHZDEKMDOK2980-99-67 02:00:00 Test Item Value Reference Range Interpretation Comments Tot Cell Ct (test code = Tot Cell Ct) 100 1 [facility]stWscojfwHBKEWOKUGO1481-23-88 02:00:00 Test Item Value Reference Range Interpretation Comments Lymphocytes (test code = Lymphocytes) 14.0 20.0-40.0 L [facility]stYhpeorrYEIBFETOLY6662-37-28 02:00:00 Test Item Value Reference Range Interpretation Comments Segs-Bands # (test code = Segs-Bands #) 14.9 1.5-8.1 H [facility]stTxpseyaTRXNIYIWHA4248-80-83 02:00:00 Test Item Value Reference Range Interpretation Comments Lymphocytes # (test code = Lymphocytes 2.6 1.0-5.5 N #) [facility]stRvbtwwpTFVBXVGCHN7256-21-97 02:00:00 Test Item Value Reference Range Interpretation Comments Neut Vac (test code = Slight *ABN*(10/31/2012 A Neut Vac) 21:00:00) [facility]stTxvfhtvUDIAJSOMEZ7629-83-16 02:00:00 Test Item Value Reference Range Interpretation Comments Bands (test code = 1.0 See_Comment N [Automat ed message] The Bands) system which ge nerated this result transmit regi reference range : <=11.0. The reference r kenneth was not used to interpr et this result as nela l/abnormal. [facility]stHearrlyIMLXMDLWSJ7417-39-06 02:00:00 Test Item Value Reference Range Interpretation Comments Eosinophils # (test code 0.2 See_Comment N [A utomated message] The = Eosinophils #) system whic h generated this result tra nsmitted reference range : <=0.5. The reference r kenneth was not used to int erpret this result as normal/abnormal . [facility]stVprvxmkSKNZZOUFLZ9174-12-11 02:00:00 Test Item Value Reference Range Interpretation Comments Segs (test code = Segs) 79.0 45.0-75.0 H [facility]stZottjnfIEKGHIMDDS7003-34-52 02:00:00 Test Item Value Reference Range Interpretation Comments Monocytes # (test code 0.9 See_Comment H [Aut omated message] The = Monocytes #) system which generated this result tra nsmitted reference range : <=0.8. The reference r kenneth was not used to int erpret this result as normal/abnormal . [facility]stZwxqtwcZPCUHCLUFN3109-45-83 02:00:00 Test Item Value Reference Range Interpretation Comments RDW (test code = RDW) 13.0 11.5-14.5 N [facility]stOvilncnGMUCZGFTLZ8630-07-55 02:00:00 Test Item Value Reference Range Interpretation Comments Platelet (test code = Platelet) 322 133-450 N [facility]stSpimgiwEBIDGRJSNS8489-91-19 02:00:00 Test Item Value Reference Range Interpretation Comments MPV (test code = MPV) 8.3 7.4-10.4 N [facility]stYpvuicqJWJUSDSDXV8664-15-46 02:00:00 Test Item Value Reference Range Interpretation Comments Hct (test code = Hct) 37.4 36.0-48.0 N [facility]stTnrnqvhEKWEDVGGIP5324-12-76 02:00:00 Test Item Value Reference Range Interpretation Comments MCV (test code = MCV) 93.5 81.0-99.0 N [facility]stQnduvlpBCBIDRJPES8333-10-22 02:00:00 Test Item Value Reference Range Interpretation Comments MCH (test code = MCH) 31.0 pg 27.0-31.0 N [facility]stMyrwymsHCRYUMZHCX7843-17-93 02:00:00 Test Item Value Reference Range Interpretation Comments MCHC (test code = MCHC) 33.2 32.0-36.0 N [facility]stHxhftgbTKWMBRMSTY5678-30-51 02:00:00 Test Item Value Reference Range Interpretation Comments WBC (test code = WBC) 18.6 3.7-10.4 H [facility]stXtnpuuuLSQIARLWVD2498-80-10 02:00:00 Test Item Value Reference Range Interpretation Comments RBC (test code = RBC) 4.00 4.20-5.40 L [facility]stSlwqehfUTNWTTUQPF1463-50-36 02:00:00 Test Item Value Reference Range Interpretation Comments Hgb (test code = Hgb) 12.4 12.0-16.0 N [facility] HospitalAnnvxbcIKNYCIXXHW6408-44-96 02:00:00 Test Item Value Reference Range Interpretation Comments UA Blood (test code = Trace *ABN*(10/31/2012 A UA Blood) 21:00:00) [facility] HospitalTflsyrxZFGGKRWKSY1780-36-13 02:00:00 Test Item Value Reference Range Interpretation Comments UA Bili (test code = Negative *NA*(10/31/2012 UA Bili) 21:00:00) [facility] HospitalRejdyiiEIZLMTFQXV5656-76-40 02:00:00 Test Item Value Reference Range Interpretation Comments UA Spec Grav (test code = UA Spec 1.010 1 N Grav) [facility] HospitalOdxuxcwQJUSJEEUER9757-20-08 02:00:00 Test Item Value Reference Range Interpretation Comments UA pH (test code = UA pH) 7.0 1 5.0-8.0 N [facility] HospitalJjwlxyzRNYATDHBQR1630-00-37 02:00:00 Test Item Value Reference Range Interpretation Comments UA Protein (test code Negative (10/31/2012 N = UA Protein) 21:00:00) [facility] HospitalIpujsnzTSVYYHWDLV0431-03-93 02:00:00 Test Item Value Reference Range Interpretation Comments UA Color (test code = Yellow *NA*(10/31/2012 UA Color) 21:00:00) [facility] HospitalKdvstuaJVCPHBFMHB0360-56-68 02:00:00 Test Item Value Reference Range Interpretation Comments UA Turbidity (test code = Clear (10/31/2012 N UA Turbidity) 21:00:00) [facility] HospitalSlpfgqjUSRQVCSUTH0284-71-80 02:00:00 Test Item Value Reference Range Interpretation Comments UA Ketones (test code Negative = UA Ketones) *NA*(10/31/2012 21:00:00) [facility] HospitalJcxmawtVTRERSZGYS4833-89-32 02:00:00 Test Item Value Reference Range Interpretation Comments UA Glucose (test code Negative (10/31/2012 N = UA Glucose) 21:00:00) [facility] HospitalRtlmosnWCHZDXXGKK0258-05-86 02:00:00 Test Item Value Reference Range Interpretation Comments Micro? (test code = Performed (10/31/2012 N Micro?) 21:00:00) [facility] HospitalRallttmWJMBEZAAHG7212-69-55 02:00:00 Test Item Value Reference Range Interpretation Comments UA Sq Epi (test code = Few /LPF (10/31/2012 N UA Sq Epi) 21:00:00) [facility]WfhiqpmRYUVGHXKHX2869-14-06 02:00:00 Test Item Value Reference Range Interpretation Comments UA Leuk Est (test Negative (10/31/2012 N code = UA Leuk Est) 21:00:00) [facility]evilleEjyjtnvCILDGCEBSN5604-73-89 02:00:00 Test Item Value Reference Range Interpretation Comments UA Nitrite (test code Negative (10/31/2012 N = UA Nitrite) 21:00:00) [facility]evilleUbrduiuLJXNFSBJHB7458-31-86 02:00:00 Test Item Value Reference Range Interpretation Comments UA Urobilinogen (test code = UA 0.2 0.1-1.0 N Urobilinogen) [facility]evillePzvexmdQBNCXUOSUQ4470-21-79 02:00:00 Test Item Value Reference Range Interpretation Comments UA Bacteria (test code = Few /HPF (10/31/2012 N UA Bacteria) 21:00:00) [facility]evilleYpypskxKVQOLJTWUR7355-33-77 02:00:00 Test Item Value Reference Range Interpretation Comments UA RBC (test 3-5 /HPF See_Comment A [Automated mes jami] code = UA RBC) *ABN*(10/31/2012 The syste m which 21:00:00) generated this result transmitted ref erence range: <=2. The reference range was not used to int erpret this result as normal/abnormal . [facility]evilleAvkrdmuMOQPPKRKGT1096-20-23 02:00:00 Test Item Value Reference Range Interpretation Comments UA WBC (test code = UA 0-2 /HPF (10/31/2012 N WBC) 21:00:00) [facility]evilleCszhyutGFYNPHYJQ7480-82-86 02:00:00 Test Item Value Reference Range Interpretation Comments Lipase Lvl (test code = Lipase Lvl) 166 73-393 N [facility]evilleAudhdzwVOATOTEYH3917-53-68 02:00:00 Test Item Value Reference Range Interpretation Comments U Preg (test code = U Positive A Preg) *ABN*(10/31/2012 21:00:00) [facility]MxdvysqCTOSUKNJN7149-68-92 02:00:00 Test Item Value Reference Range Interpretation Comments AGAP (test code = AGAP) 14.7 10.0-20.0 N [facility] TexasUtxpgphWSGIJQAAK6545-79-75 02:00:00 Test Item Value Reference Range Interpretation Comments A/G Ratio (test code = A/G Ratio) 0.7 0.7-1.6 N [facility] TexasJkptzogJPNMSRMCK3110-63-26 02:00:00 Test Item Value Reference Range Interpretation Comments Globulin (test code = Globulin) 4.7 2.0-4.0 H [facility] TexasKuzxsmgFUQHNWEIW4266-06-89 02:00:00 Test Item Value Reference Range Interpretation Comments B/C Ratio (test code = B/C Ratio) 10 6-25 N [facility] TexasBtckjaeAJVHMJXSO1337-71-86 02:00:00 Test Item Value Reference Range Interpretation Comments eGFR (test code = eGFR) 103 [facility] TexasEikswqrXBJHTHHDS2100-28-52 02:00:00 Test Item Value Reference Range Interpretation Comments AST (test code = AST) 10 See_Comment N [Auto mated message] The system which ge nerated this result transmit regi reference range : <=37. The reference range was not used to interpr et this result as nela l/abnormal. [facility] TexasCeuhoagQWVBRDXZC7581-96-34 02:00:00 Test Item Value Reference Range Interpretation Comments Alk Phos (test code = Alk Phos) 84 39-136 N [facility] TexasQhjqnkwVPBIEITDH7384-98-74 02:00:00 Test Item Value Reference Range Interpretation Comments Bili Total (test code = Bili Total) 0.2 0.2-1.3 N [facility] TexasSjbcbqdFBCATXWFO0488-42-00 02:00:00 Test Item Value Reference Range Interpretation Comments ALT (test code = ALT) 22 See_Comment N [Auto mated message] The system which ge nerated this result transmit regi reference range : <=65. The reference range was not used to interpr et this result as nela l/abnormal. [facility] TexasYmkzgseMCLGRYDVZ2234-48-83 02:00:00 Test Item Value Reference Range Interpretation Comments Total Protein (test code = Total 8.1 6.4-8.4 N Protein) [facility] TexasAgdkcshPNWWHCOAZ7719-74-34 02:00:00 Test Item Value Reference Range Interpretation Comments Albumin Lvl (test code = Albumin Lvl) 3.4 3.5-5.0 L [facility] TexasOkutlbwSTGRFNWYA8749-86-59 02:00:00 Test Item Value Reference Range Interpretation Comments Calcium Lvl (test code = Calcium Lvl) 8.4 8.5-10.5 L [facility] TexasAbxsaqaDLIETHVKJ6069-04-80 02:00:00 Test Item Value Reference Range Interpretation Comments CO2 (test code = CO2) 24 24-32 N [facility] TexasJcbjkybVGLCQVSJK6861-00-66 02:00:00 Test Item Value Reference Range Interpretation Comments Chloride Lvl (test code = Chloride Lvl) 104 95-109 N [facility] TexasVsedfolWWUAZRXZM3984-90-39 02:00:00 Test Item Value Reference Range Interpretation Comments BUN (test code = BUN) 8 7-22 N [facility] TexasWdwlrbhGQPPOTGGF2837-86-51 02:00:00 Test Item Value Reference Range Interpretation Comments Creatinine Lvl (test code = Creatinine 0.8 0.5-1.4 N Lvl) [facility] TexasWlmxgqdAEEQHFSMQ5894-40-98 02:00:00 Test Item Value Reference Range Interpretation Comments Glucose Lvl (test code = Glucose Lvl) 111 70-99 H [facility] TexasLdkqrdmXATAWXLCL1240-22-72 02:00:00 Test Item Value Reference Range Interpretation Comments Sodium Lvl (test code = Sodium Lvl) 139 135-145 N [facility] TexasBnxvhngIDVLTNWWW9977-03-37 02:00:00 Test Item Value Reference Range Interpretation Comments Potassium Lvl (test code = Potassium 3.7 3.5-5.1 N Lvl) [facility]stPanvnpeCCANDTQDHN0903-97-76 02:00:00 Test Item Value Reference Range Interpretation Comments Plt Morph (test code = Normal (10/31/2012 N Plt Morph) 21:00:00) [facility]stTbnwncmOUUCYZZAXH7410-60-90 02:00:00 Test Item Value Reference Range Interpretation Comments Eosinophils (test code = 1.0 See_Comment N [A utomated message] The Eosinophils) system which ge nerated this result tra nsmitted reference range : <=4.0. The reference r kenneth was not used to int erpret this result as normal/abnormal . [facility]stXnytexbWCHLOPFKGK2057-52-32 02:00:00 Test Item Value Reference Range Interpretation Comments Atypical Lymphs (test code = Atypical 0.0 N Lymphs) [facility]stQesnqnlIHGFTKLTGF7141-32-47 02:00:00 Test Item Value Reference Range Interpretation Comments Tear Cell (test code = Slight *ABN*(10/31/2012 A Tear Cell) 21:00:00) [facility]stSxmrhhuYWXHILXGOB1891-31-34 02:00:00 Test Item Value Reference Range Interpretation Comments Monocytes (test code = Monocytes) 5.0 2.0-12.0 N [facility]stKvcmyecGPUNIROSMY5824-51-48 02:00:00 Test Item Value Reference Range Interpretation Comments Tot Cell Ct (test code = Tot Cell Ct) 100 1 [facility]stJtjnzlrHDLNIFZPHV0354-93-76 02:00:00 Test Item Value Reference Range Interpretation Comments Lymphocytes (test code = Lymphocytes) 14.0 20.0-40.0 L [facility]stYnavhuxUHTLJAMXNV7837-28-88 02:00:00 Test Item Value Reference Range Interpretation Comments Segs-Bands # (test code = Segs-Bands #) 14.9 1.5-8.1 H [facility]stPwjhvxpMTJWOSCUKY3212-23-78 02:00:00 Test Item Value Reference Range Interpretation Comments Lymphocytes # (test code = Lymphocytes 2.6 1.0-5.5 N #) [facility]stDpefjxdEKSDWVJKCZ4530-73-30 02:00:00 Test Item Value Reference Range Interpretation Comments Neut Vac (test code = Slight *ABN*(10/31/2012 A Neut Vac) 21:00:00) [facility]stTpwpeflKJWBEAHLFR6168-88-38 02:00:00 Test Item Value Reference Range Interpretation Comments Bands (test code = 1.0 See_Comment N [Automat ed message] The Bands) system which ge nerated this result transmit regi reference range : <=11.0. The reference r kenneth was not used to interpr et this result as nela l/abnormal. [facility]stAxprvqoYQWJFDSXSK5431-61-82 02:00:00 Test Item Value Reference Range Interpretation Comments Eosinophils # (test code 0.2 See_Comment N [A utomated message] The = Eosinophils #) system whic h generated this result tra nsmitted reference range : <=0.5. The reference r kenneth was not used to int erpret this result as normal/abnormal . [facility]stBpriaohRMAWZMQECF4443-55-65 02:00:00 Test Item Value Reference Range Interpretation Comments Segs (test code = Segs) 79.0 45.0-75.0 H [facility]stLhntsrkGPJSUYONVE0422-17-89 02:00:00 Test Item Value Reference Range Interpretation Comments Monocytes # (test code 0.9 See_Comment H [Aut omated message] The = Monocytes #) system which generated this result tra nsmitted reference range : <=0.8. The reference r kenneth was not used to int erpret this result as normal/abnormal . [facility]stHsdzjzvKAPAXBMXOW8187-90-16 02:00:00 Test Item Value Reference Range Interpretation Comments RDW (test code = RDW) 13.0 11.5-14.5 N [facility]stJzqyorwUDUMSTESIM6298-92-53 02:00:00 Test Item Value Reference Range Interpretation Comments Platelet (test code = Platelet) 322 133-450 N [facility]stCudvossCSMHVWCLNU5516-90-82 02:00:00 Test Item Value Reference Range Interpretation Comments MPV (test code = MPV) 8.3 7.4-10.4 N [facility]stQgmgchkSPZHKKSDKE6586-87-75 02:00:00 Test Item Value Reference Range Interpretation Comments Hct (test code = Hct) 37.4 36.0-48.0 N [facility]stXyqmzaeCVHOBURKJA2003-86-94 02:00:00 Test Item Value Reference Range Interpretation Comments MCV (test code = MCV) 93.5 81.0-99.0 N [facility]stOkeeguyEOMREBCQTS6700-19-86 02:00:00 Test Item Value Reference Range Interpretation Comments MCH (test code = MCH) 31.0 pg 27.0-31.0 N [facility]stVpmnoqjZPFHULWUFS8262-40-97 02:00:00 Test Item Value Reference Range Interpretation Comments MCHC (test code = MCHC) 33.2 32.0-36.0 N [facility]stUuhpiodJXVWJUEKSM5574-41-81 02:00:00 Test Item Value Reference Range Interpretation Comments WBC (test code = WBC) 18.6 3.7-10.4 H [facility]stDntycltDAMKYJQLND4248-95-73 02:00:00 Test Item Value Reference Range Interpretation Comments RBC (test code = RBC) 4.00 4.20-5.40 L [facility]stToxsfpqGRZYMPYIWL1062-12-15 02:00:00 Test Item Value Reference Range Interpretation Comments Hgb (test code = Hgb) 12.4 12.0-16.0 N [facility]HfzgbcaNSFSCUUKIH1495-46-66 02:00:00 Test Item Value Reference Range Interpretation Comments UA Blood (test code = Trace *ABN*(10/31/2012 A UA Blood) 21:00:00) [facility] HospitalYpbcijoKJUAWOYPOD4889-83-48 02:00:00 Test Item Value Reference Range Interpretation Comments UA Bili (test code = Negative *NA*(10/31/2012 UA Bili) 21:00:00) [facility] HospitalWxoejgsBACDVYUNKR8473-04-96 02:00:00 Test Item Value Reference Range Interpretation Comments UA Spec Grav (test code = UA Spec 1.010 1 N Grav) [facility] HospitalPorngeoUYPSZWGLWP9584-97-08 02:00:00 Test Item Value Reference Range Interpretation Comments UA pH (test code = UA pH) 7.0 1 5.0-8.0 N [facility] HospitalJqvzeryRORMYFQLXF4916-59-15 02:00:00 Test Item Value Reference Range Interpretation Comments UA Protein (test code Negative (10/31/2012 N = UA Protein) 21:00:00) [facility] HospitalPibjcwxFWYUZBKSYZ9582-36-79 02:00:00 Test Item Value Reference Range Interpretation Comments UA Color (test code = Yellow *NA*(10/31/2012 UA Color) 21:00:00) [facility] HospitalIecgricBMILIZQZEZ1273-03-64 02:00:00 Test Item Value Reference Range Interpretation Comments UA Turbidity (test code = Clear (10/31/2012 N UA Turbidity) 21:00:00) [facility] HospitalBzwoujhBTKXIWVIOE6041-55-92 02:00:00 Test Item Value Reference Range Interpretation Comments UA Ketones (test code Negative = UA Ketones) *NA*(10/31/2012 21:00:00) [facility] HospitalYmkgbpiPRUNUUTTAN3869-23-29 02:00:00 Test Item Value Reference Range Interpretation Comments UA Glucose (test code Negative (10/31/2012 N = UA Glucose) 21:00:00) [facility] HospitalFbjgaheLXGVWLKSXV6976-05-34 02:00:00 Test Item Value Reference Range Interpretation Comments Micro? (test code = Performed (10/31/2012 N Micro?) 21:00:00) [facility] HospitalCkefhhySWDGPCTUVO8057-03-10 02:00:00 Test Item Value Reference Range Interpretation Comments UA Sq Epi (test code = Few /LPF (10/31/2012 N UA Sq Epi) 21:00:00) [facility]PnwhghqRJLRAMGKQF3767-50-73 02:00:00 Test Item Value Reference Range Interpretation Comments UA Leuk Est (test Negative (10/31/2012 N code = UA Leuk Est) 21:00:00) [facility] AntonioFjymzchJRKJYVIHDT8937-54-25 02:00:00 Test Item Value Reference Range Interpretation Comments UA Nitrite (test code Negative (10/31/2012 N = UA Nitrite) 21:00:00) [facility] AntonioHhtdqcgCLVIXNWINB8962-08-00 02:00:00 Test Item Value Reference Range Interpretation Comments UA Urobilinogen (test code = UA 0.2 0.1-1.0 N Urobilinogen) [facility] AntonioOccnpgqHRIKMYZNSB7367-05-54 02:00:00 Test Item Value Reference Range Interpretation Comments UA Bacteria (test code = Few /HPF (10/31/2012 N UA Bacteria) 21:00:00) [facility] NorthwestUrisxbnYSXVJFPVML6534-24-19 02:00:00 Test Item Value Reference Range Interpretation Comments UA RBC (test 3-5 /HPF See_Comment A [Automated mes jami] code = UA RBC) *ABN*(10/31/2012 The syste m which 21:00:00) generated this result transmitted ref erence range: <=2. The reference range was not used to int erpret this result as normal/abnormal . [facility] NorthwestDydshriSJIKQUEYCS6415-16-18 02:00:00 Test Item Value Reference Range Interpretation Comments UA WBC (test code = UA 0-2 /HPF (10/31/2012 N WBC) 21:00:00) [facility] [place]QfegdbyJPJKIYCAL8970-07-83 02:00:00 Test Item Value Reference Range Interpretation Comments Lipase Lvl (test code = Lipase Lvl) 166 73-393 N [facility] TexasEavwbbrTKWCOVRNS5197-88-81 02:00:00 Test Item Value Reference Range Interpretation Comments U Preg (test code = U Positive A Preg) *ABN*(10/31/2012 21:00:00) [facility] TexasScbpnznRZOZUKBMA0433-76-39 02:00:00 Test Item Value Reference Range Interpretation Comments AGAP (test code = AGAP) 14.7 10.0-20.0 N [facility] TexasQgwddieVDQJONNPH2721-09-54 02:00:00 Test Item Value Reference Range Interpretation Comments A/G Ratio (test code = A/G Ratio) 0.7 0.7-1.6 N [facility] TexasUdxaokgXDHLYYKFO4330-30-57 02:00:00 Test Item Value Reference Range Interpretation Comments Globulin (test code = Globulin) 4.7 2.0-4.0 H [facility] TexasCzinyrpMAEVICUQO4733-70-32 02:00:00 Test Item Value Reference Range Interpretation Comments B/C Ratio (test code = B/C Ratio) 10 6-25 N [facility] TexasJguuiqsVZKEIVQRL7266-07-66 02:00:00 Test Item Value Reference Range Interpretation Comments eGFR (test code = eGFR) 103 [facility] TexasZuiziegVMJOOSOKA1527-52-78 02:00:00 Test Item Value Reference Range Interpretation Comments AST (test code = AST) 10 See_Comment N [Auto mated message] The system which ge nerated this result transmit regi reference range : <=37. The reference range was not used to interpr et this result as nela l/abnormal. [facility] TexasMszcbjbKOMVMXKSF2006-00-25 02:00:00 Test Item Value Reference Range Interpretation Comments Alk Phos (test code = Alk Phos) 84 39-136 N [facility] TexasUrzmyycLKYPFBRTB5571-43-43 02:00:00 Test Item Value Reference Range Interpretation Comments Bili Total (test code = Bili Total) 0.2 0.2-1.3 N [facility] TexasKfgolumKTAZSISMG8124-36-29 02:00:00 Test Item Value Reference Range Interpretation Comments ALT (test code = ALT) 22 See_Comment N [Auto mated message] The system which ge nerated this result transmit regi reference range : <=65. The reference range was not used to interpr et this result as nela l/abnormal. [facility] TexasKpcifefGGQPFZSEH5962-58-07 02:00:00 Test Item Value Reference Range Interpretation Comments Total Protein (test code = Total 8.1 6.4-8.4 N Protein) [facility] TexasHzypumoUHYYHUCCT5668-28-04 02:00:00 Test Item Value Reference Range Interpretation Comments Albumin Lvl (test code = Albumin Lvl) 3.4 3.5-5.0 L [facility] TexasWcdavrrSMPVOAGKP9471-32-28 02:00:00 Test Item Value Reference Range Interpretation Comments Calcium Lvl (test code = Calcium Lvl) 8.4 8.5-10.5 L [facility] TexasAtvjfyaCMGHTVFUK6084-88-27 02:00:00 Test Item Value Reference Range Interpretation Comments CO2 (test code = CO2) 24 24-32 N [facility] TexasMgiisjqVOKSXOHQF5804-47-88 02:00:00 Test Item Value Reference Range Interpretation Comments Chloride Lvl (test code = Chloride Lvl) 104 95-109 N [facility] TexasBieitmuZWDSBLAXQ4386-93-52 02:00:00 Test Item Value Reference Range Interpretation Comments BUN (test code = BUN) 8 7-22 N [facility] TexasRunudinPHRYWTWBR7569-16-60 02:00:00 Test Item Value Reference Range Interpretation Comments Creatinine Lvl (test code = Creatinine 0.8 0.5-1.4 N Lvl) [facility] TexasNyddlakZSYJHHFVJ8849-16-99 02:00:00 Test Item Value Reference Range Interpretation Comments Glucose Lvl (test code = Glucose Lvl) 111 70-99 H [facility] TexasWxrnpgjJZBFXEKBX5001-31-92 02:00:00 Test Item Value Reference Range Interpretation Comments Sodium Lvl (test code = Sodium Lvl) 139 135-145 N [facility] TexasFcnwvprIQEYSIGED8202-46-79 02:00:00 Test Item Value Reference Range Interpretation Comments Potassium Lvl (test code = Potassium 3.7 3.5-5.1 N Lvl) [facility]stDcxnygjFOPIIWIZDF6319-93-48 02:00:00 Test Item Value Reference Range Interpretation Comments Plt Morph (test code = Normal (10/31/2012 N Plt Morph) 21:00:00) [facility]stDzalmzsASMYTKCEHR3843-54-49 02:00:00 Test Item Value Reference Range Interpretation Comments Eosinophils (test code = 1.0 See_Comment N [A utomated message] The Eosinophils) system which ge nerated this result tra nsmitted reference range : <=4.0. The reference r kenneth was not used to int erpret this result as normal/abnormal . [facility]stWgdmenhNOKCNKPZCQ6584-87-87 02:00:00 Test Item Value Reference Range Interpretation Comments Atypical Lymphs (test code = Atypical 0.0 N Lymphs) [facility]stOqpmoqoFCDULPSPCD8820-64-21 02:00:00 Test Item Value Reference Range Interpretation Comments Tear Cell (test code = Slight *ABN*(10/31/2012 A Tear Cell) 21:00:00) [facility]stSqyqjodYMETOSCESF0429-48-86 02:00:00 Test Item Value Reference Range Interpretation Comments Monocytes (test code = Monocytes) 5.0 2.0-12.0 N [facility]stFvcoahwUZMHKMYPZE5688-79-66 02:00:00 Test Item Value Reference Range Interpretation Comments Tot Cell Ct (test code = Tot Cell Ct) 100 1 [facility]stJymcofwFIYLYTFPUT0657-35-11 02:00:00 Test Item Value Reference Range Interpretation Comments Lymphocytes (test code = Lymphocytes) 14.0 20.0-40.0 L [facility]stNxosewlROKLBHRGOC6309-79-56 02:00:00 Test Item Value Reference Range Interpretation Comments Segs-Bands # (test code = Segs-Bands #) 14.9 1.5-8.1 H [facility]stZodpdggSPUHRDOUEG8019-57-88 02:00:00 Test Item Value Reference Range Interpretation Comments Lymphocytes # (test code = Lymphocytes 2.6 1.0-5.5 N #) [facility]stDzrvzkoZLDMYMNFXI6747-04-87 02:00:00 Test Item Value Reference Range Interpretation Comments Neut Vac (test code = Slight *ABN*(10/31/2012 A Neut Vac) 21:00:00) [facility]stVatjcspOCURLPVEMZ4642-33-94 02:00:00 Test Item Value Reference Range Interpretation Comments Bands (test code = 1.0 See_Comment N [Automat ed message] The Bands) system which ge nerated this result transmit regi reference range : <=11.0. The reference r kenneth was not used to interpr et this result as nela l/abnormal. [facility]stNvrmaihBJTJEWAWYZ9824-09-74 02:00:00 Test Item Value Reference Range Interpretation Comments Eosinophils # (test code 0.2 See_Comment N [A utomated message] The = Eosinophils #) system whic h generated this result tra nsmitted reference range : <=0.5. The reference r kenneth was not used to int erpret this result as normal/abnormal . [facility]stOvlbcoiENMRUBGCJO2416-41-25 02:00:00 Test Item Value Reference Range Interpretation Comments Segs (test code = Segs) 79.0 45.0-75.0 H [facility]stGtqrlxaBQHCXYOOCP0259-26-93 02:00:00 Test Item Value Reference Range Interpretation Comments Monocytes # (test code 0.9 See_Comment H [Aut omated message] The = Monocytes #) system which generated this result tra nsmitted reference range : <=0.8. The reference r kenneth was not used to int erpret this result as normal/abnormal . [facility]stEwvxelbDHVFARXUDD3762-96-67 02:00:00 Test Item Value Reference Range Interpretation Comments RDW (test code = RDW) 13.0 11.5-14.5 N [facility]stYfufklrEGYQYJGXTT3534-27-79 02:00:00 Test Item Value Reference Range Interpretation Comments Platelet (test code = Platelet) 322 133-450 N [facility]stGptgtubOYMLLUSLMS9889-63-64 02:00:00 Test Item Value Reference Range Interpretation Comments MPV (test code = MPV) 8.3 7.4-10.4 N [facility]stFtzdkerBBINZSWNCW1782-12-09 02:00:00 Test Item Value Reference Range Interpretation Comments Hct (test code = Hct) 37.4 36.0-48.0 N [facility]stNchnpnpUJSQXSLAUY2249-35-66 02:00:00 Test Item Value Reference Range Interpretation Comments MCV (test code = MCV) 93.5 81.0-99.0 N [facility]stDyyieklHUMFWSIVVO2607-78-70 02:00:00 Test Item Value Reference Range Interpretation Comments MCH (test code = MCH) 31.0 pg 27.0-31.0 N [facility]stNyamtgoJGAQPVOVCZ6262-46-56 02:00:00 Test Item Value Reference Range Interpretation Comments MCHC (test code = MCHC) 33.2 32.0-36.0 N [facility]stWauwsjtCHXAXVWYZK3383-03-09 02:00:00 Test Item Value Reference Range Interpretation Comments WBC (test code = WBC) 18.6 3.7-10.4 H [facility]stQihdcntWFUSPONWAM0917-42-34 02:00:00 Test Item Value Reference Range Interpretation Comments RBC (test code = RBC) 4.00 4.20-5.40 L [facility]stXctwobvECGKSMLXLG9087-42-65 02:00:00 Test Item Value Reference Range Interpretation Comments Hgb (test code = Hgb) 12.4 12.0-16.0 N [facility] AntonioJykqytoJGLUQDFAQX0176-55-93 02:00:00 Test Item Value Reference Range Interpretation Comments UA Blood (test code = Trace *ABN*(10/31/2012 A UA Blood) 21:00:00) [facility]ElkqcxvZYYGZXMIQE4751-08-88 02:00:00 Test Item Value Reference Range Interpretation Comments UA Bili (test code = Negative *NA*(10/31/2012 UA Bili) 21:00:00) [facility] NorthwestFzmepdaTJYHEYRITB8709-65-48 02:00:00 Test Item Value Reference Range Interpretation Comments UA Spec Grav (test code = UA Spec 1.010 1 N Grav) [facility] NorthwestDstolpmNBBMVAUBYB3337-17-52 02:00:00 Test Item Value Reference Range Interpretation Comments UA pH (test code = UA pH) 7.0 1 5.0-8.0 N [facility] NorthwestTvrbansKGTCGEFKQA0733-85-60 02:00:00 Test Item Value Reference Range Interpretation Comments UA Protein (test code Negative (10/31/2012 N = UA Protein) 21:00:00) [facility]OzfwrrzCKBFAERLUX0790-63-23 02:00:00 Test Item Value Reference Range Interpretation Comments UA Color (test code = Yellow *NA*(10/31/2012 UA Color) 21:00:00) [facility] NorthwestRqvhwaxERIXGIWBDU8813-48-73 02:00:00 Test Item Value Reference Range Interpretation Comments UA Turbidity (test code = Clear (10/31/2012 N UA Turbidity) 21:00:00) [facility] NorthwestSpkwsvkIYIJPNCMZO1855-15-90 02:00:00 Test Item Value Reference Range Interpretation Comments UA Ketones (test code Negative = UA Ketones) *NA*(10/31/2012 21:00:00) [facility] HospitalVwcxdcpSDBZOTIXCF3857-23-25 02:00:00 Test Item Value Reference Range Interpretation Comments UA Glucose (test code Negative (10/31/2012 N = UA Glucose) 21:00:00) [facility] NorthwestNylmjvjYJUKKZEFMP1803-94-55 02:00:00 Test Item Value Reference Range Interpretation Comments Micro? (test code = Performed (10/31/2012 N Micro?) 21:00:00) [facility] NorthwestDbbuscmMYWQJICINP0305-78-22 02:00:00 Test Item Value Reference Range Interpretation Comments UA Sq Epi (test code = Few /LPF (10/31/2012 N UA Sq Epi) 21:00:00) [facility] NorthwestFegcsrgHYQUIDJOGI8021-44-20 02:00:00 Test Item Value Reference Range Interpretation Comments UA Leuk Est (test Negative (10/31/2012 N code = UA Leuk Est) 21:00:00) [facility] [place]FqcwtdqBHKXARXWYM1129-83-78 02:00:00 Test Item Value Reference Range Interpretation Comments UA Nitrite (test code Negative (10/31/2012 N = UA Nitrite) 21:00:00) [facility] NorthwestRgpxyazMYARWYTVLN7503-32-98 02:00:00 Test Item Value Reference Range Interpretation Comments UA Urobilinogen (test code = UA 0.2 0.1-1.0 N Urobilinogen) [facility] NorthwestTgykrncBLGQYOVSMY7884-44-38 02:00:00 Test Item Value Reference Range Interpretation Comments UA Bacteria (test code = Few /HPF (10/31/2012 N UA Bacteria) 21:00:00) [facility] NorthwestKwxvgnoWKZVQPFYIL1537-95-28 02:00:00 Test Item Value Reference Range Interpretation Comments UA RBC (test 3-5 /HPF See_Comment A [Automated mes jami] code = UA RBC) *ABN*(10/31/2012 The syste m which 21:00:00) generated this result transmitted ref erence range: <=2. The reference range was not used to int erpret this result as normal/abnormal . [facility] HospitalCemxuafYCJKOPLTZJ1725-27-21 02:00:00 Test Item Value Reference Range Interpretation Comments UA WBC (test code = UA 0-2 /HPF (10/31/2012 N WBC) 21:00:00) [facility]stGpymcfsNQJSQXQUOQ0165-47-16 10:25:00 Test Item Value Reference Range Interpretation Comments Hgb (test code = Hgb) 9.6 12.0-16.0 L [facility]stZjprjufRTRBAWCGWX6129-84-94 10:25:00 Test Item Value Reference Range Interpretation Comments Hct (test code = Hct) 28.6 36.0-48.0 L [facility]stTcqrpzvGYDZGCHXAB9830-71-04 10:25:00 Test Item Value Reference Range Interpretation Comments Hgb (test code = Hgb) 9.6 12.0-16.0 L [facility]stJbvtzpnBFUILEFXJC4284-76-11 10:25:00 Test Item Value Reference Range Interpretation Comments Hct (test code = Hct) 28.6 36.0-48.0 L [facility] [place] AntonioZsatsghZERDHLULIG2438-10-03 10:25:00 Test Item Value Reference Range Interpretation Comments Hgb (test code = Hgb) 9.6 12.0-16.0 L [facility]stRsizpgmDQTHMJNYCZ5936-59-29 10:25:00 Test Item Value Reference Range Interpretation Comments Hct (test code = Hct) 28.6 36.0-48.0 L [facility]stDrilztyJTTDSYFGTU9540-04-28 10:25:00 Test Item Value Reference Range Interpretation Comments Hgb (test code = Hgb) 9.6 12.0-16.0 L [facility]stWylymhdAGFJURNGNS6183-35-61 10:25:00 Test Item Value Reference Range Interpretation Comments Hct (test code = Hct) 28.6 36.0-48.0 L [facility]stMytynskYHFIWYOFMI1323-18-23 10:25:00 Test Item Value Reference Range Interpretation Comments Hgb (test code = Hgb) 9.6 12.0-16.0 L [facility]stXlsckodDHPUJLHFMB9959-03-72 10:25:00 Test Item Value Reference Range Interpretation Comments Hct (test code = Hct) 28.6 36.0-48.0 L [facility] AntonioIoiduvaWNWKSJBXIY9550-69-70 10:25:00 Test Item Value Reference Range Interpretation Comments Hgb (test code = Hgb) 9.6 12.0-16.0 L [facility]stVrualctAFNTSIRSJF1529-18-33 10:25:00 Test Item Value Reference Range Interpretation Comments Hct (test code = Hct) 28.6 36.0-48.0 L [facility] AntonioScadewsDPOAQVUWEG7253-24-87 10:25:00 Test Item Value Reference Range Interpretation Comments Hgb (test code = Hgb) 9.6 12.0-16.0 L [facility] AntonioBfdjucdLSLHAEXXKX4148-09-16 10:25:00 Test Item Value Reference Range Interpretation Comments Hct (test code = Hct) 28.6 36.0-48.0 L [facility] [employer] VUQTOXV9654-49-99 00:35:00 Test Item Value Reference Range Interpretation Comments Antibody Scrn (test Negative (05/02/2011 N code = Antibody Scrn) 18:35:00) ?? [facility] [employer] ORJIYBX7136-08-49 00:35:00 Test Item Value Reference Range Interpretation Comments ABO/Rh (test code = ABO/Rh) B POS [facility]stXghwfneVVMLHANSIN6058-73-97 00:35:00 Test Item Value Reference Range Interpretation Comments RBC (test code = RBC) 3.48 4.20-5.40 L [facility]stWkpsyzqYBFRARDOLI8519-83-37 00:35:00 Test Item Value Reference Range Interpretation Comments WBC (test code = WBC) 10.9 3.7-10.4 H [facility]stRpyqwkmGIUFESVVOO5978-44-66 00:35:00 Test Item Value Reference Range Interpretation Comments Hgb (test code = Hgb) 10.9 12.0-16.0 L [facility]stKlxczguYIQSKXWYWK9592-87-08 00:35:00 Test Item Value Reference Range Interpretation Comments Hct (test code = Hct) 32.2 36.0-48.0 L [facility]stZdnidvdFKAIACPTKM7132-58-72 00:35:00 Test Item Value Reference Range Interpretation Comments MCHC (test code = MCHC) 33.7 32.0-36.0 N [facility]stVkkpxnvLNQZYZNWGS0507-31-08 00:35:00 Test Item Value Reference Range Interpretation Comments MCV (test code = MCV) 92.6 81.0-99.0 N [facility]stEfsehttCLTSEGJEHI5844-28-36 00:35:00 Test Item Value Reference Range Interpretation Comments MCH (test code = MCH) 31.2 pg 27.0-31.0 H [facility]stHgrwpxyMJZRHXTANH3291-36-75 00:35:00 Test Item Value Reference Range Interpretation Comments RDW (test code = RDW) 13.5 11.5-14.5 N [facility]stNpocmkeWLRWSNAMWO2665-54-37 00:35:00 Test Item Value Reference Range Interpretation Comments Platelet (test code = Platelet) 262.0 133-450 N [facility]stDnuvlkcBQPUUGLTJE7790-97-22 00:35:00 Test Item Value Reference Range Interpretation Comments MPV (test code = MPV) 8.5 7.4-10.4 N [facility]stErzjjxnKPWWSZXMJH6046-99-04 00:35:00 Test Item Value Reference Range Interpretation Comments Basophils (test code = 0.4 See_Comment N [Aut omated message] The Basophils) system which ge nerated this result tra nsmitted reference range : <=1.0. The reference r kenneth was not used to int erpret this result as normal/abnormal . [facility]stQrtimyePCMGABGYQL7944-46-41 00:35:00 Test Item Value Reference Range Interpretation Comments Segs-Bands # (test code = Segs-Bands #) 8.7 1.5-8.1 H [facility]stDttdjejFFRRUOSCTQ0382-90-64 00:35:00 Test Item Value Reference Range Interpretation Comments Eosinophils (test code = 1.3 See_Comment N [A utomated message] The Eosinophils) system which ge nerated this result tra nsmitted reference range : <=4.0. The reference r kenneth was not used to int erpret this result as normal/abnormal . [facility]stFtoxatoTZIEHJCOTR3937-94-67 00:35:00 Test Item Value Reference Range Interpretation Comments Basophils # (test code 0.0 See_Comment N [Aut omated message] The = Basophils #) system which generated this result tra nsmitted reference range : <=0.2. The reference r kenneth was not used to int erpret this result as normal/abnormal . [facility]stDjvhupaARWJJSVFKW7223-63-87 00:35:00 Test Item Value Reference Range Interpretation Comments Lymphocytes # (test code = Lymphocytes 1.2 1.0-5.5 N #) [facility]stTtosgvvZNZNSRQEXA7457-31-72 00:35:00 Test Item Value Reference Range Interpretation Comments Monocytes # (test code 0.7 See_Comment N [Aut omated message] The = Monocytes #) system which generated this result tra nsmitted reference range : <=0.8. The reference r kenneth was not used to int erpret this result as normal/abnormal . [facility]stQmqwklqULIXGRTLSF3020-77-40 00:35:00 Test Item Value Reference Range Interpretation Comments Eosinophils # (test code 0.1 See_Comment N [A utomated message] The = Eosinophils #) system whic h generated this result tra nsmitted reference range : <=0.5. The reference r kenneth was not used to int erpret this result as normal/abnormal . [facility]stQajsqtwSMFFCURVYB2084-21-27 00:35:00 Test Item Value Reference Range Interpretation Comments Monocytes (test code = Monocytes) 6.6 2.0-12.0 N [facility]stJbzibrzGBQJZBSHAV4828-00-03 00:35:00 Test Item Value Reference Range Interpretation Comments Segs (test code = Segs) 80.3 45.0-75.0 H [facility] AntonioNddeitlPJQCKBBPDI8725-73-04 00:35:00 Test Item Value Reference Range Interpretation Comments Lymphocytes (test code = Lymphocytes) 11.4 20.0-40.0 L [facility] AntonioVzmrtzaEQQUJLTXDP4047-51-81 00:35:00 Test Item Value Reference Range Interpretation Comments RPR (test code = RPR) Non Reactive (05/02/2011 N 18:35:00) [facility]oucdiPYSYCCUBRS7815-05-49 00:35:00 Test Item Value Reference Range Interpretation Comments Hep Bs Ag (test code Negative *NA*(05/02/2011 = Hep Bs Ag) 18:35:00) ?? [facility] [employer] HRWKCJO7373-63-61 00:35:00 Test Item Value Reference Range Interpretation Comments Antibody Scrn (test Negative (05/02/2011 N code = Antibody Scrn) 18:35:00) ?? [facility] [employer] YJFSBRT5327-67-25 00:35:00 Test Item Value Reference Range Interpretation Comments ABO/Rh (test code = ABO/Rh) B POS [facility] AntonioQnthhtjXAKGRJKZEN2040-71-93 00:35:00 Test Item Value Reference Range Interpretation Comments RBC (test code = RBC) 3.48 4.20-5.40 L [facility] AntonioTbfcdqtUCOREBQVCG1919-96-85 00:35:00 Test Item Value Reference Range Interpretation Comments WBC (test code = WBC) 10.9 3.7-10.4 H [facility]LjessugJSBSRNAVPH3281-03-31 00:35:00 Test Item Value Reference Range Interpretation Comments Hgb (test code = Hgb) 10.9 12.0-16.0 L [facility]evilleGmdubdwFHIWKMLHXL6472-18-35 00:35:00 Test Item Value Reference Range Interpretation Comments Hct (test code = Hct) 32.2 36.0-48.0 L [facility] AntonioPagtmocADDXPWZRPN0476-04-64 00:35:00 Test Item Value Reference Range Interpretation Comments MCHC (test code = MCHC) 33.7 32.0-36.0 N [facility] AntonioGycbvnaVPCCDDRZGU4116-56-97 00:35:00 Test Item Value Reference Range Interpretation Comments MCV (test code = MCV) 92.6 81.0-99.0 N [facility]stMxmsnhtZLCVJPHLBW2893-94-54 00:35:00 Test Item Value Reference Range Interpretation Comments MCH (test code = MCH) 31.2 pg 27.0-31.0 H [facility]stAebuztlTUHNXOBAWH8450-07-34 00:35:00 Test Item Value Reference Range Interpretation Comments RDW (test code = RDW) 13.5 11.5-14.5 N [facility]stMrtabbcLEGELCTGRE6749-99-26 00:35:00 Test Item Value Reference Range Interpretation Comments Platelet (test code = Platelet) 262.0 133-450 N [facility]stTqmdoziZTMKRMOICP5442-44-54 00:35:00 Test Item Value Reference Range Interpretation Comments MPV (test code = MPV) 8.5 7.4-10.4 N [facility]stOvxtquwTTCQTJOTBU4180-14-06 00:35:00 Test Item Value Reference Range Interpretation Comments Basophils (test code = 0.4 See_Comment N [Aut omated message] The Basophils) system which ge nerated this result tra nsmitted reference range : <=1.0. The reference r kenneth was not used to int erpret this result as normal/abnormal . [facility]stTjhtzjhQINMCRFVVH3142-47-83 00:35:00 Test Item Value Reference Range Interpretation Comments Segs-Bands # (test code = Segs-Bands #) 8.7 1.5-8.1 H [facility]stUsdsctzAUZBJUIHOQ8975-05-89 00:35:00 Test Item Value Reference Range Interpretation Comments Eosinophils (test code = 1.3 See_Comment N [A utomated message] The Eosinophils) system which ge nerated this result tra nsmitted reference range : <=4.0. The reference r kenneth was not used to int erpret this result as normal/abnormal . [facility]stSurdtgnJATVAAQDTK6714-65-01 00:35:00 Test Item Value Reference Range Interpretation Comments Basophils # (test code 0.0 See_Comment N [Aut omated message] The = Basophils #) system which generated this result tra nsmitted reference range : <=0.2. The reference r kenneth was not used to int erpret this result as normal/abnormal . [facility]stJualyixNGBPYTWAOD5989-77-37 00:35:00 Test Item Value Reference Range Interpretation Comments Lymphocytes # (test code = Lymphocytes 1.2 1.0-5.5 N #) [facility]stBttwjtwDUZMWPATQS8202-42-64 00:35:00 Test Item Value Reference Range Interpretation Comments Monocytes # (test code 0.7 See_Comment N [Aut omated message] The = Monocytes #) system which generated this result tra nsmitted reference range : <=0.8. The reference r kenneth was not used to int erpret this result as normal/abnormal . [facility]stEpgofylATQEUHERFM9944-13-78 00:35:00 Test Item Value Reference Range Interpretation Comments Eosinophils # (test code 0.1 See_Comment N [A utomated message] The = Eosinophils #) system whic h generated this result tra nsmitted reference range : <=0.5. The reference r kenneth was not used to int erpret this result as normal/abnormal . [facility]stNmqudbxNXLAZAMAHY1344-23-54 00:35:00 Test Item Value Reference Range Interpretation Comments Monocytes (test code = Monocytes) 6.6 2.0-12.0 N [facility]stFxkirntZFRCTPSGSU4453-26-60 00:35:00 Test Item Value Reference Range Interpretation Comments Segs (test code = Segs) 80.3 45.0-75.0 H [facility]stZiabkpgTXJEGJRMRG9646-56-32 00:35:00 Test Item Value Reference Range Interpretation Comments Lymphocytes (test code = Lymphocytes) 11.4 20.0-40.0 L [facility]PvzlqkaXYLPPAGGMH1820-14-05 00:35:00 Test Item Value Reference Range Interpretation Comments RPR (test code = RPR) Non Reactive (05/02/2011 N 18:35:00) ?? [facility] AntonioZklzhmkDVYLMCSOWY7741-48-59 00:35:00 Test Item Value Reference Range Interpretation Comments Hep Bs Ag (test code Negative *NA*(05/02/2011 = Hep Bs Ag) 18:35:00) ?? [facility] DXZTRJB2419-88-28 00:35:00 Test Item Value Reference Range Interpretation Comments Antibody Scrn (test Negative (05/02/2011 N code = Antibody Scrn) 18:35:00) ?? [facility] AntonioHmizate.ma JZLYTNL8599-91-18 00:35:00 Test Item Value Reference Range Interpretation Comments ABO/Rh (test code = ABO/Rh) B POS [facility]stQwizoowEEFCVAOKTL4476-94-18 00:35:00 Test Item Value Reference Range Interpretation Comments RBC (test code = RBC) 3.48 4.20-5.40 L [facility]stBxboaxgUDIJBSLNJT5422-74-86 00:35:00 Test Item Value Reference Range Interpretation Comments WBC (test code = WBC) 10.9 3.7-10.4 H [facility]stZfbhiudPRNWVFHAJL1609-38-38 00:35:00 Test Item Value Reference Range Interpretation Comments Hgb (test code = Hgb) 10.9 12.0-16.0 L [facility]stUccpkeqNTVCJQKASP6103-89-88 00:35:00 Test Item Value Reference Range Interpretation Comments Hct (test code = Hct) 32.2 36.0-48.0 L [facility]stAuujlpuDZTRMJKQAQ7394-26-27 00:35:00 Test Item Value Reference Range Interpretation Comments MCHC (test code = MCHC) 33.7 32.0-36.0 N [facility]stOelpccfWDBWATQUXB0021-73-63 00:35:00 Test Item Value Reference Range Interpretation Comments MCV (test code = MCV) 92.6 81.0-99.0 N [facility]stGvoylmxSBNTPGZFIJ7974-76-76 00:35:00 Test Item Value Reference Range Interpretation Comments MCH (test code = MCH) 31.2 pg 27.0-31.0 H [facility]stAohmdqaFXPZHAAKAK3000-50-43 00:35:00 Test Item Value Reference Range Interpretation Comments RDW (test code = RDW) 13.5 11.5-14.5 N [facility]stZiagdszZJQPHALFKN7275-47-83 00:35:00 Test Item Value Reference Range Interpretation Comments Platelet (test code = Platelet) 262.0 133-450 N [facility]stOhjbnuxRMKSLQEJBV1580-68-07 00:35:00 Test Item Value Reference Range Interpretation Comments MPV (test code = MPV) 8.5 7.4-10.4 N [facility]stBycxcwfSPAZRHWFIL6285-05-36 00:35:00 Test Item Value Reference Range Interpretation Comments Basophils (test code = 0.4 See_Comment N [Aut omated message] The Basophils) system which ge nerated this result tra nsmitted reference range : <=1.0. The reference r kenneth was not used to int erpret this result as normal/abnormal . [facility]stBaewewgNSBESZXXUB7245-81-30 00:35:00 Test Item Value Reference Range Interpretation Comments Segs-Bands # (test code = Segs-Bands #) 8.7 1.5-8.1 H [facility]stEtbyedsJYJPYKMQSP0063-97-46 00:35:00 Test Item Value Reference Range Interpretation Comments Eosinophils (test code = 1.3 See_Comment N [A utomated message] The Eosinophils) system which ge nerated this result tra nsmitted reference range : <=4.0. The reference r kenneth was not used to int erpret this result as normal/abnormal . [facility]stNsynbesXXSEIHSPZA2941-54-64 00:35:00 Test Item Value Reference Range Interpretation Comments Basophils # (test code 0.0 See_Comment N [Aut omated message] The = Basophils #) system which generated this result tra nsmitted reference range : <=0.2. The reference r kenneth was not used to int erpret this result as normal/abnormal . [facility]stUuuvtnfLTSVBVUPCP1504-03-10 00:35:00 Test Item Value Reference Range Interpretation Comments Lymphocytes # (test code = Lymphocytes 1.2 1.0-5.5 N #) [facility]stWbvzvgfFSTLUFYVOT7265-81-61 00:35:00 Test Item Value Reference Range Interpretation Comments Monocytes # (test code 0.7 See_Comment N [Aut omated message] The = Monocytes #) system which generated this result tra nsmitted reference range : <=0.8. The reference r kenneth was not used to int erpret this result as normal/abnormal . [facility]stZkkdwwsEETUTNFHMI3088-82-95 00:35:00 Test Item Value Reference Range Interpretation Comments Eosinophils # (test code 0.1 See_Comment N [A utomated message] The = Eosinophils #) system whic h generated this result tra nsmitted reference range : <=0.5. The reference r kenneth was not used to int erpret this result as normal/abnormal . [facility]stEdqvnzsWIPCOZEAOV9871-94-37 00:35:00 Test Item Value Reference Range Interpretation Comments Monocytes (test code = Monocytes) 6.6 2.0-12.0 N [facility]stNqxvjlsNYYSJNWKCV4724-06-65 00:35:00 Test Item Value Reference Range Interpretation Comments Segs (test code = Segs) 80.3 45.0-75.0 H [facility] AntonioIdnmyhoOBPGRCUOZZ0438-14-50 00:35:00 Test Item Value Reference Range Interpretation Comments Lymphocytes (test code = Lymphocytes) 11.4 20.0-40.0 L [facility] AntonioLqulvpfPSBTQBYSRR8154-91-35 00:35:00 Test Item Value Reference Range Interpretation Comments RPR (test code = RPR) Non Reactive (05/02/2011 N 18:35:00) ?? [facility] AntonioPkjqhawKDOGYIQWLT3760-88-75 00:35:00 Test Item Value Reference Range Interpretation Comments Hep Bs Ag (test code Negative *NA*(05/02/2011 = Hep Bs Ag) 18:35:00) ?? [facility]Home[facility] YQXYAVH3323-38-07 00:35:00 Test Item Value Reference Range Interpretation Comments Antibody Scrn (test Negative (05/02/2011 N code = Antibody Scrn) 18:35:00) ?? [facility] WNTEBZQ9148-48-96 00:35:00 Test Item Value Reference Range Interpretation Comments ABO/Rh (test code = ABO/Rh) B POS [facility] AntonioSrxqklaPRHIQABLSW5640-46-33 00:35:00 Test Item Value Reference Range Interpretation Comments RBC (test code = RBC) 3.48 4.20-5.40 L [facility]stFqusihcDVACBFLAAC6746-24-73 00:35:00 Test Item Value Reference Range Interpretation Comments WBC (test code = WBC) 10.9 3.7-10.4 H [facility]stHsbanrzGPPZDGFJAP7866-16-86 00:35:00 Test Item Value Reference Range Interpretation Comments Hgb (test code = Hgb) 10.9 12.0-16.0 L [facility]LjybnqdHOFOIZKWRH6874-05-83 00:35:00 Test Item Value Reference Range Interpretation Comments Hct (test code = Hct) 32.2 36.0-48.0 L [facility] HospitalXrstwwvLBTFUTGUHB5113-56-05 00:35:00 Test Item Value Reference Range Interpretation Comments MCHC (test code = MCHC) 33.7 32.0-36.0 N [facility]stKwaocfmVZSBFFGKGX1527-21-43 00:35:00 Test Item Value Reference Range Interpretation Comments MCV (test code = MCV) 92.6 81.0-99.0 N [facility] HospitalJuhyuftKRGCAZOWSS8248-85-34 00:35:00 Test Item Value Reference Range Interpretation Comments MCH (test code = MCH) 31.2 pg 27.0-31.0 H [facility]stOptcmxyGNWBCOPNSM9307-93-21 00:35:00 Test Item Value Reference Range Interpretation Comments RDW (test code = RDW) 13.5 11.5-14.5 N [facility]stBcbkheqDIVTTVVVIP4686-79-12 00:35:00 Test Item Value Reference Range Interpretation Comments Platelet (test code = Platelet) 262.0 133-450 N [facility]stOzbytgyWZEZWMAXSK9175-74-20 00:35:00 Test Item Value Reference Range Interpretation Comments MPV (test code = MPV) 8.5 7.4-10.4 N [facility]stApopxdqIXXRCEZZZQ0584-98-11 00:35:00 Test Item Value Reference Range Interpretation Comments Basophils (test code = 0.4 See_Comment N [Aut omated message] The Basophils) system which ge nerated this result tra nsmitted reference range : <=1.0. The reference r kenneth was not used to int erpret this result as normal/abnormal . [facility]stKzgmnvqCAXGHRCKFX7962-28-64 00:35:00 Test Item Value Reference Range Interpretation Comments Segs-Bands # (test code = Segs-Bands #) 8.7 1.5-8.1 H [facility]stZrdaawxJYZZGBLKRA0674-65-87 00:35:00 Test Item Value Reference Range Interpretation Comments Eosinophils (test code = 1.3 See_Comment N [A utomated message] The Eosinophils) system which ge nerated this result tra nsmitted reference range : <=4.0. The reference r kenneth was not used to int erpret this result as normal/abnormal . [facility]stKxjmejxHUDISCHHOA9890-85-08 00:35:00 Test Item Value Reference Range Interpretation Comments Basophils # (test code 0.0 See_Comment N [Aut omated message] The = Basophils #) system which generated this result tra nsmitted reference range : <=0.2. The reference r kenneth was not used to int erpret this result as normal/abnormal . [facility]stDuknacmFTHRFKKGPR3401-11-55 00:35:00 Test Item Value Reference Range Interpretation Comments Lymphocytes # (test code = Lymphocytes 1.2 1.0-5.5 N #) [facility]stCfstblfDSOHAYTNII5816-20-89 00:35:00 Test Item Value Reference Range Interpretation Comments Monocytes # (test code 0.7 See_Comment N [Aut omated message] The = Monocytes #) system which generated this result tra nsmitted reference range : <=0.8. The reference r kenneth was not used to int erpret this result as normal/abnormal . [facility]stGidcbmyQMSHMEEQOV5025-52-50 00:35:00 Test Item Value Reference Range Interpretation Comments Eosinophils # (test code 0.1 See_Comment N [A utomated message] The = Eosinophils #) system whic h generated this result tra nsmitted reference range : <=0.5. The reference r kenneth was not used to int erpret this result as normal/abnormal . [facility]stKgspmntIOFIDNHWYZ2117-60-83 00:35:00 Test Item Value Reference Range Interpretation Comments Monocytes (test code = Monocytes) 6.6 2.0-12.0 N [facility]stSrtmfobLYFWVMKTKP5335-71-20 00:35:00 Test Item Value Reference Range Interpretation Comments Segs (test code = Segs) 80.3 45.0-75.0 H [facility]stGgwcyclGHRVRVXJXN3511-26-26 00:35:00 Test Item Value Reference Range Interpretation Comments Lymphocytes (test code = Lymphocytes) 11.4 20.0-40.0 L [facility] AntonioZmftpqpOIKFORYTOZ9104-96-89 00:35:00 Test Item Value Reference Range Interpretation Comments RPR (test code = RPR) Non Reactive (05/02/2011 N 18:35:00) ?? [facility] AntonioVrfunzbZXXCQTAVLZ4662-13-51 00:35:00 Test Item Value Reference Range Interpretation Comments Hep Bs Ag (test code Negative *NA*(05/02/2011 = Hep Bs Ag) 18:35:00) ?? [facility] RIVUFNQ0697-12-36 00:35:00 Test Item Value Reference Range Interpretation Comments Antibody Scrn (test Negative (05/02/2011 N code = Antibody Scrn) 18:35:00) ?? [facility] EVRNJPY4251-38-59 00:35:00 Test Item Value Reference Range Interpretation Comments ABO/Rh (test code = ABO/Rh) B POS [facility]stDfwvvgmNCPHTWHRBN2767-79-44 00:35:00 Test Item Value Reference Range Interpretation Comments RBC (test code = RBC) 3.48 4.20-5.40 L [facility]stMtnywzdZZFLVRFLAN7470-15-62 00:35:00 Test Item Value Reference Range Interpretation Comments WBC (test code = WBC) 10.9 3.7-10.4 H [facility]stQtjvttbAZIYFGLTOK0916-28-82 00:35:00 Test Item Value Reference Range Interpretation Comments Hgb (test code = Hgb) 10.9 12.0-16.0 L [facility]stCmimiliVDXPBCCFHZ9099-16-25 00:35:00 Test Item Value Reference Range Interpretation Comments Hct (test code = Hct) 32.2 36.0-48.0 L [facility]stVofrnrtRSUOEYSAKZ4369-00-13 00:35:00 Test Item Value Reference Range Interpretation Comments MCHC (test code = MCHC) 33.7 32.0-36.0 N [facility]stRovhtfvDWPFIAUBTD4353-81-30 00:35:00 Test Item Value Reference Range Interpretation Comments MCV (test code = MCV) 92.6 81.0-99.0 N [facility]stNeqpbocIDTHPITDGB6093-99-96 00:35:00 Test Item Value Reference Range Interpretation Comments MCH (test code = MCH) 31.2 pg 27.0-31.0 H [facility]stMcbcxpiEXNFHHIDLB4085-77-54 00:35:00 Test Item Value Reference Range Interpretation Comments RDW (test code = RDW) 13.5 11.5-14.5 N [facility]stTunzgdaRAQRQNBGAV1027-27-08 00:35:00 Test Item Value Reference Range Interpretation Comments Platelet (test code = Platelet) 262.0 133-450 N [facility]stTpcfwowMPFKOVPMAH1331-91-71 00:35:00 Test Item Value Reference Range Interpretation Comments MPV (test code = MPV) 8.5 7.4-10.4 N [facility]stUbgsqvaEZJQIIUIRZ1202-74-89 00:35:00 Test Item Value Reference Range Interpretation Comments Basophils (test code = 0.4 See_Comment N [Aut omated message] The Basophils) system which ge nerated this result tra nsmitted reference range : <=1.0. The reference r kenneth was not used to int erpret this result as normal/abnormal . [facility]stMhaitqxNOMBRMLUCJ8360-91-20 00:35:00 Test Item Value Reference Range Interpretation Comments Segs-Bands # (test code = Segs-Bands #) 8.7 1.5-8.1 H [facility]stCxjdmmsDYKWCCZKIC6384-82-71 00:35:00 Test Item Value Reference Range Interpretation Comments Eosinophils (test code = 1.3 See_Comment N [A utomated message] The Eosinophils) system which ge nerated this result tra nsmitted reference range : <=4.0. The reference r kenneth was not used to int erpret this result as normal/abnormal . [facility]stVlukykgWDPGHWDKJI6235-73-06 00:35:00 Test Item Value Reference Range Interpretation Comments Basophils # (test code 0.0 See_Comment N [Aut omated message] The = Basophils #) system which generated this result tra nsmitted reference range : <=0.2. The reference r kenneth was not used to int erpret this result as normal/abnormal . [facility]stZtrrtisYOOEGXREYJ3436-77-79 00:35:00 Test Item Value Reference Range Interpretation Comments Lymphocytes # (test code = Lymphocytes 1.2 1.0-5.5 N #) [facility]stPptfjuhTAKNJKFWDN6046-29-64 00:35:00 Test Item Value Reference Range Interpretation Comments Monocytes # (test code 0.7 See_Comment N [Aut omated message] The = Monocytes #) system which generated this result tra nsmitted reference range : <=0.8. The reference r kenneth was not used to int erpret this result as normal/abnormal . [facility]stKhugltsRJOFEYIZNH1566-35-45 00:35:00 Test Item Value Reference Range Interpretation Comments Eosinophils # (test code 0.1 See_Comment N [A utomated message] The = Eosinophils #) system whic h generated this result tra nsmitted reference range : <=0.5. The reference r kenneth was not used to int erpret this result as normal/abnormal . [facility]stPwdumihXJUGETLAKP2311-63-87 00:35:00 Test Item Value Reference Range Interpretation Comments Monocytes (test code = Monocytes) 6.6 2.0-12.0 N [facility]stWqpzdgdOLFBXOVTDS6937-44-23 00:35:00 Test Item Value Reference Range Interpretation Comments Segs (test code = Segs) 80.3 45.0-75.0 H [facility]stBnzstqmXESOJPSZMW4819-82-20 00:35:00 Test Item Value Reference Range Interpretation Comments Lymphocytes (test code = Lymphocytes) 11.4 20.0-40.0 L [facility]evilleOjexadzCOUILWXJMY5843-51-57 00:35:00 Test Item Value Reference Range Interpretation Comments RPR (test code = RPR) Non Reactive (05/02/2011 N 18:35:00) ?? [facility]evilleDtepwrcWCGSEDFYSU7517-92-22 00:35:00 Test Item Value Reference Range Interpretation Comments Hep Bs Ag (test code Negative *NA*(05/02/2011 = Hep Bs Ag) 18:35:00) ?? [facility] HDCFEIH2893-54-56 00:35:00 Test Item Value Reference Range Interpretation Comments Antibody Scrn (test Negative (05/02/2011 N code = Antibody Scrn) 18:35:00) ?? [facility] GLMCBWM4059-31-95 00:35:00 Test Item Value Reference Range Interpretation Comments ABO/Rh (test code = ABO/Rh) B POS [facility] AntonioXpcstmdWQNSXBDWBB4670-71-35 00:35:00 Test Item Value Reference Range Interpretation Comments RBC (test code = RBC) 3.48 4.20-5.40 L [facility] BeevilleMcvpyuePWKVAIOPBK2339-77-25 00:35:00 Test Item Value Reference Range Interpretation Comments WBC (test code = WBC) 10.9 3.7-10.4 H [facility] BeevilleBkmjttcSFURMVVPQN3492-98-68 00:35:00 Test Item Value Reference Range Interpretation Comments Hgb (test code = Hgb) 10.9 12.0-16.0 L [facility] BeevilleLgechkvPVKLRRMZAL7667-17-89 00:35:00 Test Item Value Reference Range Interpretation Comments Hct (test code = Hct) 32.2 36.0-48.0 L [facility] BeevilleUpxjxumYSTJGWZCWB3627-57-13 00:35:00 Test Item Value Reference Range Interpretation Comments MCHC (test code = MCHC) 33.7 32.0-36.0 N [facility] BeevilleMprrxsvTRJDZNOAQA2871-68-77 00:35:00 Test Item Value Reference Range Interpretation Comments MCV (test code = MCV) 92.6 81.0-99.0 N [facility] BeevillePxxazsfELRTJBKRAX3983-62-01 00:35:00 Test Item Value Reference Range Interpretation Comments MCH (test code = MCH) 31.2 pg 27.0-31.0 H [facility]stVdmodsiCJZOLIPSGD0721-77-22 00:35:00 Test Item Value Reference Range Interpretation Comments RDW (test code = RDW) 13.5 11.5-14.5 N [facility]stXmkmxgsRGXUWWYQJQ6118-58-88 00:35:00 Test Item Value Reference Range Interpretation Comments Platelet (test code = Platelet) 262.0 133-450 N [facility]stDirscbxDHHWAKWPZQ1103-30-45 00:35:00 Test Item Value Reference Range Interpretation Comments MPV (test code = MPV) 8.5 7.4-10.4 N [facility]stHmhqergTSYHCGAERA6459-42-78 00:35:00 Test Item Value Reference Range Interpretation Comments Basophils (test code = 0.4 See_Comment N [Aut omated message] The Basophils) system which ge nerated this result tra nsmitted reference range : <=1.0. The reference r kenneth was not used to int erpret this result as normal/abnormal . [facility]stRoqqxylTPJSBSFJFB2108-53-99 00:35:00 Test Item Value Reference Range Interpretation Comments Segs-Bands # (test code = Segs-Bands #) 8.7 1.5-8.1 H [facility]stYdlglsuCNAXHYTBGP5350-61-02 00:35:00 Test Item Value Reference Range Interpretation Comments Eosinophils (test code = 1.3 See_Comment N [A utomated message] The Eosinophils) system which ge nerated this result tra nsmitted reference range : <=4.0. The reference r kenneth was not used to int erpret this result as normal/abnormal . [facility]stPtpbfofBOUNGWKOCQ5471-73-47 00:35:00 Test Item Value Reference Range Interpretation Comments Basophils # (test code 0.0 See_Comment N [Aut omated message] The = Basophils #) system which generated this result tra nsmitted reference range : <=0.2. The reference r kenneth was not used to int erpret this result as normal/abnormal . [facility]stNqhwmhtDQRQPJBGWX5628-75-32 00:35:00 Test Item Value Reference Range Interpretation Comments Lymphocytes # (test code = Lymphocytes 1.2 1.0-5.5 N #) [facility]stRfdlkewWODXEIEUMB8054-86-98 00:35:00 Test Item Value Reference Range Interpretation Comments Monocytes # (test code 0.7 See_Comment N [Aut omated message] The = Monocytes #) system which generated this result tra nsmitted reference range : <=0.8. The reference r kenneth was not used to int erpret this result as normal/abnormal . [facility] AntonioRzvuefeWXNDVWSLSW7730-54-67 00:35:00 Test Item Value Reference Range Interpretation Comments Eosinophils # (test code 0.1 See_Comment N [A utomated message] The = Eosinophils #) system whic h generated this result tra nsmitted reference range : <=0.5. The reference r kenneth was not used to int erpret this result as normal/abnormal . [facility] AntonioCgbpillDRZDDAVXSC7368-35-16 00:35:00 Test Item Value Reference Range Interpretation Comments Monocytes (test code = Monocytes) 6.6 2.0-12.0 N [facility]HehcnpmYZYRTGUGKH1802-15-64 00:35:00 Test Item Value Reference Range Interpretation Comments Segs (test code = Segs) 80.3 45.0-75.0 H [facility]stOijlmkpOORBOCHGHT5864-60-35 00:35:00 Test Item Value Reference Range Interpretation Comments Lymphocytes (test code = Lymphocytes) 11.4 20.0-40.0 L [facility] AntonioXchimmzEFGXYHZVDO8124-35-85 00:35:00 Test Item Value Reference Range Interpretation Comments RPR (test code = RPR) Non Reactive (05/02/2011 N 18:35:00) ?? [facility] AntonioFtluruwKBXNFGQYBA3906-73-05 00:35:00 Test Item Value Reference Range Interpretation Comments Hep Bs Ag (test code Negative *NA*(05/02/2011 = Hep Bs Ag) 18:35:00) ?? [facility] Beevilleic[facility] ACORAFS4878-68-45 00:35:00 Test Item Value Reference Range Interpretation Comments Antibody Scrn (test Negative (05/02/2011 N code = Antibody Scrn) 18:35:00) ?? [facility] [employer] YXIQVYU3082-42-83 00:35:00 Test Item Value Reference Range Interpretation Comments ABO/Rh (test code = ABO/Rh) B POS [facility] AntonioZskcasdWKZFSRINNA3472-85-83 00:35:00 Test Item Value Reference Range Interpretation Comments RBC (test code = RBC) 3.48 4.20-5.40 L [facility] AntonioBpdyebbPFKKBXLJIC0169-95-16 00:35:00 Test Item Value Reference Range Interpretation Comments WBC (test code = WBC) 10.9 3.7-10.4 H [facility]stXncjjcxIAIYJKBTFW7362-95-84 00:35:00 Test Item Value Reference Range Interpretation Comments Hgb (test code = Hgb) 10.9 12.0-16.0 L [id number] 00:35:00 Test Item Value Reference Range Interpretation Comments Hct (test code = Hct) 32.2 36.0-48.0 L [id number] 00:35:00 Test Item Value Reference Range Interpretation Comments MCHC (test code = MCHC) 33.7 32.0-36.0 N [id number] 00:35:00 Test Item Value Reference Range Interpretation Comments MCV (test code = MCV) 92.6 81.0-99.0 N [id number] 00:35:00 Test Item Value Reference Range Interpretation Comments MCH (test code = MCH) 31.2 pg 27.0-31.0 H [id number] 00:35:00 Test Item Value Reference Range Interpretation Comments RDW (test code = RDW) 13.5 11.5-14.5 N [id number] 00:35:00 Test Item Value Reference Range Interpretation Comments Platelet (test code = Platelet) 262.0 133-450 N [id number] 00:35:00 Test Item Value Reference Range Interpretation Comments MPV (test code = MPV) 8.5 7.4-10.4 N [id number] 00:35:00 Test Item Value Reference Range Interpretation Comments Basophils (test code = 0.4 See_Comment N [Aut omated message] The Basophils) system which ge nerated this result tra nsmitted reference range : <=1.0. The reference r kenneth was not used to int erpret this result as normal/abnormal . [id number] 00:35:00 Test Item Value Reference Range Interpretation Comments Segs-Bands # (test code = Segs-Bands #) 8.7 1.5-8.1 H [id number] 00:35:00 Test Item Value Reference Range Interpretation Comments Eosinophils (test code = 1.3 See_Comment N [A utomated message] The Eosinophils) system which ge nerated this result tra nsmitted reference range : <=4.0. The reference r kenneth was not used to int erpret this result as normal/abnormal . [id number] 00:35:00 Test Item Value Reference Range Interpretation Comments Basophils # (test code 0.0 See_Comment N [Aut omated message] The = Basophils #) system which generated this result tra nsmitted reference range : <=0.2. The reference r kenneth was not used to int erpret this result as normal/abnormal . [id number] 00:35:00 Test Item Value Reference Range Interpretation Comments Lymphocytes # (test code = Lymphocytes 1.2 1.0-5.5 N #) [id number] 00:35:00 Test Item Value Reference Range Interpretation Comments Monocytes # (test code 0.7 See_Comment N [Aut omated message] The = Monocytes #) system which generated this result tra nsmitted reference range : <=0.8. The reference r kenneth was not used to int erpret this result as normal/abnormal . [id number] 00:35:00 Test Item Value Reference Range Interpretation Comments Eosinophils # (test code 0.1 See_Comment N [A utomated message] The = Eosinophils #) system whic h generated this result tra nsmitted reference range : <=0.5. The reference r kenneth was not used to int erpret this result as normal/abnormal . [id number] 00:35:00 Test Item Value Reference Range Interpretation Comments Monocytes (test code = Monocytes) 6.6 2.0-12.0 N [id number] 00:35:00 Test Item Value Reference Range Interpretation Comments Segs (test code = Segs) 80.3 45.0-75.0 H [id number] 00:35:00 Test Item Value Reference Range Interpretation Comments Lymphocytes (test code = Lymphocytes) 11.4 20.0-40.0 L [id number] 00:35:00 Test Item Value Reference Range Interpretation Comments RPR (test code = RPR) Non Reactive (05/02/2011 N 18:35:00) ?? [facility] [id number] 00:35:00 Test Item Value Reference Range Interpretation Comments Hep Bs Ag (test code Negative *NA*(05/02/2011 = Hep Bs Ag) 18:35:00) ?? [facility] Notes Date/Time Note Provider Source 2016-07-22 09:20:00-00:00 PELVIC SONOGRAM [facility] CLINICAL HISTORY: Pelvic pain. COMPARISON IMAGIN04/09/2016 TECHNIQUE: Real time sonography was per formed by an eeg technologist, transvaginally only. S[employer] static images were submitted for review. FINDINGS: Exam may be limited by transabdominal only images. Uterus: Measures 7.3 x 4.8 x 2.3 cm. Endometrial stripe is 4 mm in thickness, within normal limits. No distinct uterine mass is identified. There is no free fluid in the pelvis. Right Adnexa: Patient report s that right ovary was removed 2014. No definite suspicious adnexal abnormality is seen. Left Adnexa: Ovary measures 2.3 x 1.3 x 1.0 cm. There is no abnormal Doppler signal or suspicious adnexal abnormality. IMPRESSION: Status post right oophorectomy. Otherwise, no si gnificant abnormality. 2016-07-22 09:20:00-00:00 PELVIC SONOGRAM [facility] CLINICAL HISTORY: Pelvic pain. COMPARISON IMAGIN04/09/2016 TECHNIQUE: Real time sonography was per formed by an eeg technologist, transvaginally only. [employer] static images were submitted for review. FINDINGS: Exam may be limited by transabdominal only images. Uterus: Measures 7.3 x 4.8 x 2.3 cm. Endometrial stripe is 4 mm in thickness, within normal limits. No distinct uterine mass is identified. There is no free fluid in the pelvis. Right Adnexa: Patient report s that right ovary was removed 2014. No definite suspicious adnexal abnormality is seen. Left Adnexa: Ovary measures 2.3 x 1.3 x 1.0 cm. There is no abnormal Doppler signal or suspicious adnexal abnormality. IMPRESSION: Status post right oophorectomy. Otherwise, no si gnificant abnormality. 2016-04-09 14:18:05-00:00 CLINICAL HISTORY: Abdominal pain, acut e. Cardale Sex: Female. : 1985. TECHNIQUE: Transabdominal sc ans of the right upper quadrant of the abdomen with grayscale imaging and Doppler. Exam Date 04/09/2016. Liver: 18.1 cm. There is fatty infiltration. Portal vein: 1.1 cm. There is hepatopedal portal flow. Gallbladder: Cholecystectomy Biliary ducts: Common bile duct is 4.7 mm. Pancreas: Normal. Right kidney: 12.1 cm. Free fluid: None. Aorta and IVC: Normal as visualized. IMPRESSION: 1. Fatty liver. 2016-04-09 14:18:05-00:00 CLINICAL HISTORY: Abdominal pain, acut e. Cardale Sex: Female. : 1985. TECHNIQUE: Transabdominal sc ans of the right upper quadrant of the abdomen with grayscale imaging and Doppler. Exam Date 04/09/2016. Liver: 18.1 cm. There is fatty infiltration. Portal vein: 1.1 cm. There is hepatopedal portal flow. Gallbladder: Cholecystectomy Biliary ducts: Common bile duct is 4.7 mm. Pancreas: Normal. Right kidney: 12.1 cm. Free fluid: None. Aorta and IVC: Normal as visualized. IMPRESSION: 1. Fatty liver. 2016-04-09 11:57:02-00:00 Exam: CT Scan of the abdomen and p kenneth with contrast [facility] Reason for Exam: Abdominal pain, acute. Nausea a nd vomiting. Comparison Exam: 04/18/2015 Technique: Multiple axial im ages were obtained of the abdomen and pelvis. 5 mm slices were acquired after injection of 100 cc Omnipaque 300 IV. Reformatted sagittal and coronal images were obtained for additional diagnostic information. Total exam DL P = 2655 mGy-cm. Discussion: Visualized portions of the lung bases are unrema rkable. The patient is status post c holecystectomy. No biliary duct dilation. Diffuse fatty infiltration seen throughout the liver. Portal venous system is patent. Pancreas, adrenal glands, and spleen are withi n normal limits. Kidneys are unremarkable. No hydronephrosis or hydroureter. No dilated loops of bowel. The appendix is normal. Scattered diverticuli seen within the large bowel, without evidence to sug gest acute diverticulitis. U terus and bladder are unremarkable. No appreciable lymphadenopathy. Small supraumbilical fat-containing hernia is seen. The aperture measures approximately 2.4 cm (series 2, image 52). No acute bony abnormalities appreciated. No suspicious osteoblastic or osteolytic lesions. No evidence seen for abdominal aortic aneurysm or dissection. Impression: 1. Small supraumbilical fat- containing hernia is seen. No dilated loops of bowel to suggest obstruction. 2016-04-09 11:57:02-00:00 Exam: CT Scan of the abdomen and p kenneth with contrast Cardale Reason for Exam: Abdominal pain, acute. Nausea a nd vomiting. Comparison Exam: 04/18/2015 Technique: Multiple axial im ages were obtained of the abdomen and pelvis. 5 mm slices were acquired after injection of 100 cc Omnipaque 300 IV. Reformatted sagittal and coronal images were obtained for additional diagnostic information. Total exam DL P = 2655 mGy-cm. Discussion: Visualized portions of the lung bases are unrema rkable. The patient is status post c holecystectomy. No biliary duct dilation. Diffuse fatty infiltration seen throughout the liver. Portal venous system is patent. Pancreas, adrenal glands, and spleen are withi n normal limits. Kidneys are unremarkable. No hydronephrosis or hydroureter. No dilated loops of bowel. The appendix is normal. Scattered diverticuli seen within the large bowel, without evidence to sug gest acute diverticulitis. U terus and bladder are unremarkable. No appreciable lymphadenopathy. Small supraumbilical fat-containing hernia is seen. The aperture measures approximately 2.4 cm (series 2, image 52). No acute bony abnormalities appreciated. No suspicious osteoblastic or osteolytic lesions. No evidence seen for abdominal aortic aneurysm or dissection. Impression: 1. Small supraumbilical fat- containing hernia is seen. No dilated loops of bowel to suggest obstruction. 2015-08-11 22:50:57-00:00 Clinical History : , Abdominal pain, a cute Cardale Exam : Acute Abdominal Series 08/11/2015 9:15 PM APPOINTMENT MANAGER Comparisons : CT abdomen and pelvis with contras t 04/18/2015 Findings : The lungs are clear without focal consolidation or pleural effusion. The heart is normal in size. The mediastinal con tours and normal. The thoracic spine, shoulders, and ribs are age appropriate. Clips are present from prior cholecystectomy. The bowel gas pattern is normal. There is moderate formed stool throughout the co john. There is no evidence of free air. There are no abnormal masses or calcifications. Limited evaluation of the liver and sple en demonstrate no gross abnormalities. The osseous structures are age appropriate. Impression: 1. No acute cardiopulmonary disease. 2. No acute intra-abdominal process. 3. Moderate formed colonic stool 2015-08-11 22:50:57-00:00 Clinical History : , Abdominal pain, a cute MH Cardale Exam : Acute Abdominal Series 08/11/2015 9:15 PM APPOINTMENT MANAGER Comparisons : CT abdomen and pelvis with contras t 04/18/2015 Findings : The lungs are clear without focal consolidation or pleural effusion. The heart is normal in size. The mediastinal con tours and normal. The thoracic spine, shoulders, and ribs are age appropriate. Clips are present from prior cholecystectomy. The bowel gas pattern is normal. There is moderate formed stool throughout the co john. There is no evidence of free air. There are no abnormal masses or calcifications. Limited evaluation of the liver and sple en demonstrate no gross abnormalities. The osseous structures are age appropriate. Impression: 1. No acute cardiopulmonary disease. 2. No acute intra-abdominal process. 3. Moderate formed colonic stool 2015-07-05 14:00:00-00:00 EXAM: Robert Terrazas Pelvic ultrasound. INDICATION: Left pelvic pain in a premenopausal female. TECHNIQUE: Grayscale and Doppler sonogram of the pelvis. Transabdominal technique was not used. Transvaginal technique was used for better evalu ation of the pelvic viscera. COMPARISON: Pelvic ultrasound April 18, 2015. FINDINGS: Uterus: Anteverted. Measures 6.8 x 5.2 x 2.7 cm. Endometrial stripe: Measures 0.2 cm which is not thickened. Right ovary: Interval resection of the right ovary and dermoi d cyst. Left ovary: Measures 1.6 x 1.3 x 1.1 cm. Normal doppler flow. Other: Free fluid: None. IMPRESSION: 1. Surgically absent right ovary; otherwise unre markable. 2015-07-05 14:00:00-00:00 EXAM: Robert Terrazas Pelvic ultrasound. INDICATION: Left pelvic pain in a premenopausal female. TECHNIQUE: Grayscale and Doppler sonogram of the pelvis. Transabdominal technique was not used. Transvaginal technique was used for better evalu ation of the pelvic viscera. COMPARISON: Pelvic ultrasound April 18, 2015. FINDINGS: Uterus: Anteverted. Measures 6.8 x 5.2 x 2.7 cm. Endometrial stripe: Measures 0.2 cm which is not thickened. Right ovary: Interval resection of the right ovary and dermoi d cyst. Left ovary: Measures 1.6 x 1.3 x 1.1 cm. Normal doppler flow. Other: Free fluid: None. IMPRESSION: 1. Surgically absent right ovary; otherwise unre markable. 2015-04-19 00::-: CLINICAL HISTORY : See Clini c Indication , Abdominal pain, acute MH Cardale EXAM : Pelvic ultrasound Apr 19, 2015 12:01:00 A M COMPARISON : none TECHNIQUE : Utilizing a curv ed array transducer, real-time ultrasound evaluation of the female pelvis was performed. Color Doppler imaging was used to assess vascular flow. A transvaginal probe was used to further delineate adnexal structures FINDINGS : The uterus is normal in size measuring 7.6 x 3.0 x 4.4 cm. There are no abnormal uterine masses identified. The endometrial stripe measures 5.8 mm in thickness. There is a small amount of fluid in the lower endocervical canal. There is a echogenic focus i n the fundal portion of the endometrium measuring up to 6 mm in diameter The left ovary is normal in size measuring 3.1 x 1.1 x 1.1 cm. There are no abnormal right ovarian or adnexal masses. There is intact vascular flow to the right ovary. The right ovary is enlarged measuring 9.3 x 6.8 x 7.8 cm. There is a dominant heterogeneous hyperechoic right adnexal mass. There is vascular flow to the right adnexal mass.. There is no free pelvic fluid. IMPRESSIONS: 1. Large heterogeneous echog enicity right ovarian cyst lesion, consistent with dermoid cyst seen on corresponding CT. There is flow present within the cystic lesion without visualize normal ovarian tissue. 2. Echogenic focus in the en dometrium with a small amount of endocervical fluid. 3. Unremarkable left ovary. 2015-04-19 00::-: CLINICAL HISTORY : See Clini c Indication , Abdominal pain, acute MH Cardale EXAM : Pelvic ultrasound Apr 19, 2015 12:01:00 A M COMPARISON : none TECHNIQUE : Utilizing a curv ed array transducer, real-time ultrasound evaluation of the female pelvis was performed. Color Doppler imaging was used to assess vascular flow. A transvaginal probe was used to further delineate adnexal structures FINDINGS : The uterus is normal in size measuring 7.6 x 3.0 x 4.4 cm. There are no abnormal uterine masses identified. The endometrial stripe measures 5.8 mm in thickness. There is a small amount of fluid in the lower endocervical canal. There is a echogenic focus i n the fundal portion of the endometrium measuring up to 6 mm in diameter The left ovary is normal in size measuring 3.1 x 1.1 x 1.1 cm. There are no abnormal right ovarian or adnexal masses. There is intact vascular flow to the right ovary. The right ovary is enlarged measuring 9.3 x 6.8 x 7.8 cm. There is a dominant heterogeneous hyperechoic right adnexal mass. There is vascular flow to the right adnexal mass.. There is no free pelvic fluid. IMPRESSIONS: 1. Large heterogeneous echog enicity right ovarian cyst lesion, consistent with dermoid cyst seen on corresponding CT. There is flow present within the cystic lesion without visualize normal ovarian tissue. 2. Echogenic focus in the en dometrium with a small amount of endocervical fluid. 3. Unremarkable left ovary. 2015-04-18 22:45:52-00:00 CLINICAL HISTORY: See Clinic Indication , Abdominal pain, acute MH Cardale EXAM: CT abdomen and pelvis with contrast Mar 10:46:00 PM COMPARISON: None. TECHNIQUE: Following the adm inistration of intravenous contrast, Volumetric CT acquisition was performed through the abdomen and pelvis. Images in the axial, coronal, and sagittal planes were presented for interpretation. Delayed excretory phase imag es were also obtained. Radiation dose/contrast: DLP: 2789 mGy 100ml Omnipaque FINDINGS: The lung bases are clear. Th e visualized cardiomediastinal structures within normal limits. Within the upper abdomen, th e liver and spleen are normal in size and morphology. The gallbladder is surgicall y absent. There is no intra or extrahepatic biliary ductal dilation. The pancreas and adrenal glands are normal in ap pearance. The kidneys are normal in si ze bilaterally and the ureters are normal in course and caliber. There are no renal calculi, distal obstructing stones, or evidence of hydronephrosis/hydroureter. The stomach and small intest ryder are within normal limits without wall thickening or bowel dilation. The appendix is well-visualized and normal, best seen on axial image 64 anterior to the right psoas muscle. The colon is stool filled and otherwise unremark able. Within the pelvis, the bladder and rectum are no rmal. There is a dominant right ov alex dermoid cyst with the areas of back, soft tissue density, and teeth measuring 8.9 x 6.9 cm. The uterus and left ovary are normal in appearance. There are no pathologically enlarged inguinal, retroperitoneal, portacaval, or mesenteric lymph nodes. The soft tissue structures of the abdominal wall are normal in appearance. The visualized osseous structures within normal limits for the patient's age. The abdominal aorta and its primary bran ches are normal in course and caliber. IMPRESSIONS: 1. Dominant right ovarian de rmoid cyst measuring up to 8.9 cm in diameter. Further evaluation with pelvic ultrasound is suggested to evaluate for ovarian torsion. 2. Status post cholecystectomy. 2015-04-18 22:45:52-00:00 CLINICAL HISTORY: See Clinic Indication , Abdominal pain, acute MH Cardale EXAM: CT abdomen and pelvis with contrast Mar 10:46:00 PM COMPARISON: None. TECHNIQUE: Following the adm inistration of intravenous contrast, Volumetric CT acquisition was performed through the abdomen and pelvis. Images in the axial, coronal, and sagittal planes were presented for interpretation. Delayed excretory phase imag es were also obtained. Radiation dose/contrast: DLP: 2789 mGy 100ml Omnipaque FINDINGS: The lung bases are clear. Th e visualized cardiomediastinal structures within normal limits. Within the upper abdomen, th e liver and spleen are normal in size and morphology. The gallbladder is surgicall y absent. There is no intra or extrahepatic biliary ductal dilation. The pancreas and adrenal glands are normal in ap pearance. The kidneys are normal in si ze bilaterally and the ureters are normal in course and caliber. There are no renal calculi, distal obstructing stones, or evidence of hydronephrosis/hydroureter. The stomach and small intest ryder are within normal limits without wall thickening or bowel dilation. The appendix is well-visualized and normal, best seen on axial image 64 anterior to the right psoas muscle. The colon is stool filled and otherwise unremark able. Within the pelvis, the bladder and rectum are no rmal. There is a dominant right ov alex dermoid cyst with the areas of back, soft tissue density, and teeth measuring 8.9 x 6.9 cm. The uterus and left ovary are normal in appearance. There are no pathologically enlarged inguinal, retroperitoneal, portacaval, or mesenteric lymph nodes. The soft tissue structures of the abdominal wall are normal in appearance. The visualized osseous structures within normal limits for the patient's age. The abdominal aorta and its primary bran ches are normal in course and caliber. IMPRESSIONS: 1. Dominant right ovarian de rmoid cyst measuring up to 8.9 cm in diameter. Further evaluation with pelvic ultrasound is suggested to evaluate for ovarian torsion. 2. Status post cholecystectomy. 2014-03-20 07:35:56-00:00 Comparison: No prior exam. GOWEX Findings: The abdominal aorta and IVC are patent. Mild increased hepatic echotexture is seen without focal lesion. The portal vein is patent. The visualized portions of the pancreas and right kidney appear unremarkable. The gallbladder is mildly di stended and contains several small gallstones. No pericholecystic fluid is seen. The common bile duct caliber is 0.6 cm. Impression: 1. Small gallstones and mild gallbladder distention. Normal common bile duct caliber. 2. Probable mild fatty hepatic infiltration. 2014-03-20 07:35:56-00:00 Comparison: No prior exam. GOWEX Findings: The abdominal aorta and IVC are patent. Mild increased hepatic echotexture is seen without focal lesion. The portal vein is patent. The visualized portions of the pancreas and right kidney appear unremarkable. The gallbladder is mildly di stended and contains several small gallstones. No pericholecystic fluid is seen. The common bile duct caliber is 0.6 cm. Impression: 1. Small gallstones and mild gallbladder distention. Normal common bile duct caliber. 2. Probable mild fatty hepatic infiltration. 2014-03-01 18:31:05-00:00 CLINICAL HISTORY:Head trauma. GOWEX Sex: F. : 1985. TECHNIQUE: Axial scans of th e brain without contrast including multiplanar computer-generated reformations. Total Dose (DLP): 691 mGy-cm. There is no acute abnormal i ntracranial density or mass. There is no hemorrhage or extra-axial fluid collection. Ventricles, subarachnoid spaces and sulci are normal. Orbits are symmetric. Paranasal sinuses are aerated. IMPRESSION: 1. No acute intracranial findings. 2014-03-01 18:31:05-00:00 CLINICAL HISTORY:Head trauma. [facility] Sex: F. : 1985. TECHNIQUE: Axial scans of th e brain without contrast including multiplanar computer-generated reformations. Total Dose (DLP): 691 mGy-cm. There is no acute abnormal i ntracranial density or mass. There is no hemorrhage or extra-axial fluid collection. Ventricles, subarachnoid spaces and sulci are normal. Orbits are symmetric. Paranasal sinuses are aerated. IMPRESSION: 1. No acute intracranial findings. 2012-10-31 22:40:20-00:00 Examination: CT scan of the brain with out contrast. [facility] HISTORY: Headache with dizziness. COMPARISON: None available. TECHNIQUE: Multiple axial CT images of the brain were obtained without the administration of intravenous contrast. Multiplanar reformatted images were subsequently performed. FINDINGS: The brain parenchy ma is normal in volume and morphology. No acute intracranial hemorrhage, mass effect, midline shift, or hydrocephalus is seen. There are no extra-axial fluid collections. The visualized paranasal sinuse s and mastoid air cells are well-aerated. The optic globes and retrobulbar soft tissues are unremarkable. IMPRESSION: No acute intracranial abnormality. 2012-10-31 22:40:20-00:00 Examination: CT scan of the brain with out contrast. [facility] HISTORY: Headache with dizziness. COMPARISON: None available. TECHNIQUE: Multiple axial CT images of the brain were obtained without the administration of intravenous contrast. Multiplanar reformatted images were subsequently performed. FINDINGS: The brain parenchy ma is normal in volume and morphology. No acute intracranial hemorrhage, mass effect, midline shift, or hydrocephalus is seen. There are no extra-axial fluid collections. The visualized paranasal sinuse s and mastoid air cells are well-aerated. The optic globes and retrobulbar soft tissues are unremarkable.
[2022-12-18] MEDS ORDERED: KETOROLAC 30 MG/ML INJ ONE (15:24)
[2022-12-18 16:13] VITALS: TEMP 98.4
[2022-12-18 16:14] VITALS: BP 126/70; O2SAT 100
== END 2022-12-18 15:38 | disposition home or self-care (01) ==
LOC: ER 14:42
DX: L03.116 Cellulitis of left lower limb (principal)
CPT/HCPCS: 96372; 99284

== ENCOUNTER 2024-04-28 08:27 | Emergency (ER) | payer OTHER ==
[2024-04-28 09:27] LABS: Specific Gravity > 1.030 (1.005-1.030); Sqamous Epithelial None Seen /HPF (None Seen); Urine Bacteria None Seen /HPF (<20); Urine Bilirubin NEGATIVE (Negative); Urine Blood 2+ (Negative); Urine Clarity Extremely Turbid (Clear); Urine Color Light-Orange (Yellow); Urine Culture Reflex Order REFLEXED; Urine Glucose 4+ (Over) (Negative); Urine Ketones TRACE (Negative); Urine Micro Reflex YN NO BILL MICROSCOPIC; Urine Mucus Slight /HPF (None Seen); Urine Nitrite NEGATIVE (Negative); Urine Protein 1+ (Negative); Urine RBC >50 /HPF (None Seen); Urine Urobilinogen Normal (Normal); Urine WBC >50 /HPF (<5); Urine WBC Clump Occasional /HPF (None Seen)
[2024-04-28 09:32] LABS: Specific Gravity > 1.030 (1.005-1.030)
[2024-04-28] MEDS ORDERED: ONDANSETRON 4 MG (ODT) TAB ONE ×2 (09:35→09:41)
--- NOTE | 2024-04-28 10:04 | ER ---
Nurse's Notes [facility] Name: Quin Hernández Age: 38 yrs Sex: Female : 1985 Arrival Date: 04/28/2024 Time: 08:27 Bed DIS1 Private MD: Diagnosis: Urinary tract infection Presentation: 04/28 08:44 Chief complaint: Patient states: Dysuria for 1 week. No fever. Azo hasn't helped. ll1 Coronavirus screen: Client denies travel out of the [place] in the last 14 days. At this time, the client does not indicate any symptoms associated with coronavirus-19. Ebola Screen: Patient denies travel to an Ebola-affected area in the 21 days before illness onset. Initial Sepsis Screen: Does the patient meet any 2 criteria? No. Patient's initial sepsis screen is negative. Does the patient have a suspected source of infection? No. Patient's initial sepsis screen is negative. Risk Assessment: Do you want to hurt yourself or someone else? Patient reports no desire to harm self or others. Onset of symptoms was April 22, 2024. 08:44 Method Of Arrival: Ambulatory ll1 08:44 Acuity: ZAIDA 3 ll1 Historical: - Allergies: 08:46 [place]; ll1 - PMHx: 08:46 diabetes mellitus; HEART RACING; ll1 - PSHx: 08:46 Cholecystectomy; Hernia sx; L ovary removed; ll1 - Immunization history:: Adult Immunizations up to date. - Infectious Disease History:: Denies. - Social history:: Smoking status: Patient denies any tobacco usage or history of. Screenin:38 [facility] ED Fall Risk Assessment (Adult) History of falling in the last 3 months, rs5 including since admission No falls in past 3 months (0 pts) Confusion or Disorientation No (0 pts) Intoxicated or Sedated No (0 pts) Impaired Gait No (0 pts) Mobility Assist Device Used No (0 pt) Altered Elimination No (0 pt) Score/Fall Risk Level 0 - 2 = Low Risk Oriented to surroundings, Maintained a safe environment. Abuse screen: Denies threats or abuse. Nutritional screening: No deficits noted. Tuberculosis screening: No symptoms or risk factors identified. Assessment: 08:35 General: Appears in no apparent distress. uncomfortable, Behavior is calm, cooperative. rs5 Pain: Denies pain. Neuro: Level of Consciousness is awake, alert, obeys commands, Oriented to person, place, time, situation. Cardiovascular: Patient's skin is warm and dry. Respiratory: Airway is patent Respiratory effort is even, unlabored, Respiratory pattern is regular, symmetrical. GI: Abdomen is round non-distended, Abd is soft and non tender X 4 quads. : Reports burning with urination. EENT: No signs and/or symptoms were reported regarding the EENT system. Derm: Skin is intact, Skin is pink, warm \T\ dry. Musculoskeletal: Range of motion: intact in all extremities. 09:20 Reassessment: Patient and/or family updated on plan of care and expected duration. Pain rs5 level reassessed. Patient is alert, oriented x 3, equal unlabored respirations, skin warm/dry/pink. 10:00 Reassessment: Patient and/or family updated on plan of care and expected duration. Pain rs5 level reassessed. Patient is alert, oriented x 3, equal unlabored respirations, skin warm/dry/pink. Vital Signs: 08:44 BP 127 / 68; Pulse 87; Resp 17; Temp 97.3; Pulse Ox 99% on R/A; Weight 92.08 kg; Height ll1 5 ft. 2 in. ; Pain 10/10; 10:00 BP 132 / 74; Pulse 74; Resp 17; Pulse Ox 99% on R/A; rs5 08:44 Body Mass Index 37.13 (92.08 kg, 157.48 cm) ll1 08:44 Pain Scale: Adult ll1 ED Course: 08:34 Patient arrived in ED. mr 08:36 Patient has correct armband on for positive identification. Placed in gown. Bed in low rs5 position. Call light in reach. Side rails up X2. 08:36 No provider procedures requiring assistance completed. rs5 08:37 Dejan Aragon MD is Attending Physician. sp3 08:38 Lamin Molina, KARENA is Primary Nurse. rs5 08:46 Triage completed. ll1 08:47 Arm band placed on Patient placed in an exam room, on a stretcher. ll1 10:05 Patient did not have IV access during this emergency room visit. rs5 Administered Medications: 09:42 Drug: Ondansetron PO 4 mg PO once Route: PO; rs5 10:05 Follow up: Response: No adverse reaction; Nausea is decreased rs5 Medication: 09:20 VIS not applicable for this client. rs5 Outcome: 10:03 Discharge ordered by . sp3 10:05 Discharged to home ambulatory, rs5 10:05 Condition: stable rs5 10:05 Discharge instructions given to patient, family, Instructed on discharge instructions, follow up and referral plans. medication usage, Demonstrated understanding of instructions, follow-up care, medications, Prescriptions given X 1, 10:11 Patient left the ED. rs5 Signatures: Krista Garrett, Reg Reg mr Armando Rodriguez RN RN ll1 Dejan Aragon MD MD sp3 Lamin Molina RN RN rs5
--- NOTE | 2024-04-28 10:04 | EDPHYS ---
Physician Documentation [facility] Name: Quin Hernández Age: 38 yrs Sex: Female : 1985 Arrival Date: 04/28/2024 Time: 08:27 Bed DIS1 Private MD: ED Physician Dejan Aragon HPI: 04/28 09:38 This 38 yrs old Female presents to ER via Ambulatory with complaints of sp3 Urinary Problem. 09:38 38-year-old female with history of diabetes now presents with dysuria for 3 days. No sp3 other symptoms. She denies , flank pain, abdominal pain, bleeding or any other signs or symptoms on ROS at this time.. Historical: - Allergies: 08:46 [place]; ll1 - PMHx: 08:46 diabetes mellitus; HEART RACING; ll1 - PSHx: 08:46 Cholecystectomy; Hernia sx; L ovary removed; ll1 - Immunization history:: Adult Immunizations up to date. - Infectious Disease History:: Denies. - Social history:: Smoking status: Patient denies any tobacco usage or history of. ROS: 09:43 Constitutional: Negative for fever, chills, and weight loss, Eyes: Negative for injury, sp3 pain, redness, and discharge, ENT: Negative for injury, pain, and discharge, Neck: Negative for injury, pain, and swelling, Cardiovascular: Negative for chest pain, palpitations, and edema, Respiratory: Negative for shortness of breath, cough, wheezing, and pleuritic chest pain, Abdomen/GI: Negative for abdominal pain, nausea, vomiting, diarrhea, and constipation, Back: Negative for injury and pain, MS/Extremity: Negative for injury and deformity, Skin: Negative for injury, rash, and discoloration, Neuro: Negative for headache, weakness, numbness, tingling, and seizure, Psych: Negative for depression, anxiety, suicide ideation, homicidal ideation, and hallucinations, Allergy/Immunology: Negative for hives, rash, and allergies, Endocrine: Negative for neck swelling, polydipsia, polyuria, polyphagia, and marked weight changes, 09:43 All other systems are negative, Exam: 09:43 Constitutional: This is a well developed, well nourished patient who is awake, alert, sp3 and in no acute distress. Head/Face: Normocephalic, atraumatic. Eyes: Pupils equal round and reactive to light, extra-ocular motions intact. Lids and lashes normal. Conjunctiva and sclera are non-icteric and not injected. Cornea within normal limits. Periorbital areas with no swelling, redness, or edema. ENT: Nares patent. No nasal discharge, no septal abnormalities noted. External auditory canals are clear. Oropharynx with no redness, swelling, or masses, exudates, or evidence of obstruction, uvula midline. Mucous membranes moist. Neck: Trachea midline, no thyromegaly or masses palpated, and no cervical lymphadenopathy. Supple, full range of motion without nuchal rigidity, or vertebral point tenderness. No Meningismus. Chest/axilla: Normal chest wall appearance and motion. Nontender with no deformity. No lesions are appreciated. Cardiovascular: Regular rate and rhythm with a normal S1 and S2. No gallops, murmurs, or rubs. Normal PMI, no JVD. No pulse deficits. Respiratory: Lungs have equal breath sounds bilaterally, clear to auscultation and percussion. No rales, rhonchi or wheezes noted. No increased work of breathing, no retractions or nasal flaring. Abdomen/GI: Soft, non-tender, with normal bowel sounds. No distension or tympany. No guarding or rebound. No evidence of tenderness throughout. Back: No spinal tenderness. No costovertebral tenderness. Full range of motion. MS/ Extremity: Pulses equal, no cyanosis. Neurovascular intact. Full, normal range of motion. Neuro: Awake and alert, GCS 15, oriented to person, place, time, and situation. Cranial nerves II-XII grossly intact. Motor strength 5/5 in all extremities. Sensory grossly intact. Cerebellar exam normal. Normal gait. Psych: Awake, alert, with orientation to person, place and time. Behavior, mood, and affect are within normal limits. Vital Signs: 08:44 BP 127 / 68; Pulse 87; Resp 17; Temp 97.3; Pulse Ox 99% on R/A; Weight 92.08 kg; Height ll1 5 ft. 2 in. ; Pain 10/10; 10:00 BP 132 / 74; Pulse 74; Resp 17; Pulse Ox 99% on R/A; rs5 08:44 Body Mass Index 37.13 (92.08 kg, 157.48 cm) ll1 08:44 Pain Scale: Adult ll1 MDM: 08:37 Medical Screening Exam initiated sp3 09:43 Data reviewed: vital signs, nurses notes, lab test result(s). ED course: 38-year-old sp3 female with history of diabetes now with dysuria. Differential diagnosis includes UTI versus pyelonephritis versus some other process. UA pending.. 10:03 ED course: UA positive for UTI. Will place on antibiotic and discharged home.. sp3 04/28 08:52 Order name: UAM; Complete Time: 10: sp3 04/28 08:52 Order name: Test, Urine; Complete Time: 10: sp3 04/28 09:35 Order name: Urine Culture EDMS Administered Medications: 09:42 Drug: Ondansetron PO 4 mg PO once Route: PO; rs5 10:05 Follow up: Response: No adverse reaction; Nausea is decreased rs5 Disposition Summary: 04/28/24 10:03 Discharge Ordered Notes: Location: Home sp3 Condition: Stable sp3 Diagnosis - Urinary tract infection sp3 Followup: sp3 - With: Private Physician - When: Upon discharge from the Emergency Department - Reason: Continuance of care Discharge Instructions: - Discharge Summary Sheet sp3 - Urinary Tract Infection, Adult sp3 Forms: - Medication Reconciliation Form sp3 - Antibiotic Education sp3 - Prescription Opioid Use sp3 - Patient Portal Instructions sp3 - Leadership Thank You Letter sp3 Prescriptions: - Bactrim DS 800-160 mg Oral tablet - take 1 tablet ORAL route every 12 hours for 5 days; 10 tablet; Refills: 0, sp3 Product Selection Permitted Signatures: Dispatcher [employer] EDMS Armando Rodriguez RN RN ll1 Dejan Aragon MD MD sp3 Lamin Molina RN RN rs5 Corrections: (The following items were deleted from the chart) 09:43 09:38 38-year-old female with history of diabetes now presents with dysuria for 3 sp3 days.. sp3
[2024-04-28 10:19] VITALS: BP 127/68; TEMP 97.3; O2SAT 99
== END 2024-04-28 10:11 | disposition home or self-care (01) ==
LOC: ER 08:27
DX: N39.0 Urinary tract infection, site not specified (principal); E11.9 Type 2 diabetes mellitus without complications
CPT/HCPCS: 87088; 81001; 87086; 81025; Q0162 ×2